=== PATIENT | female | born 1960 | race Caucasian/White ===

== ENCOUNTER → 2017-08-26 16:01 | Outpatient (CLI) | payer BC, SELFPAY ==
--- NOTE | 2017-08-26 16:04 | CT_ITS ---
CT Abdomen And Pelvis W/O Contrast INDICATION: Right flank pain x months. COMPARISON: None TECHNIQUE: Axial CT imaging of the abdomen and pelvis without contrast. Coronal and sagittal reformatted images. Radiation dose optimization technique applied. FINDINGS: Visualized lung bases are clear. The heart size is normal. The liver is normal in size and density. Gallbladder is not well seen, may be contracted or surgically absent. The spleen appears to be surgically absent. A residual splenule is seen. A punctate renal calculus, less than 1 mm is seen in the midpole region of the right kidney. There is no evidence of hydronephrosis. A punctate, less than 1 mm calcific density is seen in the inferior pole region of the left kidney, no evidence of hydronephrosis. The bowel loops are nondistended. The appendix is unremarkable. There is sigmoid diverticulosis without evidence of acute diverticulitis. There is no evidence of free air or free fluid. There is a 5.8 cm cyst with peripheral soft tissue material seen in the central pelvis, may represent the ovary with a large cyst. The urinary bladder is decompressed. The uterus and second ovary are not seen. CT/Abdomen/Pelvis without Cont IMPRESSION: 5.8 cm cystic structure in the pelvis with peripheral soft tissue density, may represent a large cyst arising from the ovary. Please correlate with pelvic ultrasound. Follow-up in 2-3 cycles is recommended to confirm stability or resolution. The uterus, second ovary, gallbladder, and spleen are not seen, may be surgically absent, please correlate with patient's surgical history. Sigmoid diverticulosis without evidence of acute diverticulitis. Normal appendix. Punctate nonobstructing bilateral renal calculi, no evidence of hydronephrosis. at 0059 Reported and signed by: Alejandra Urban MD Electronically Signed: Alejandra Urban MD at 23:57 EST Tel , Service support ,
== END ==
PROVIDERS: Family Provider Nurse Practitioner; PCP Nurse Practitioner; Visit Provider Nurse Practitioner
DX: R10.9 Unspecified abdominal pain (principal)
CPT/HCPCS: 74176

== ENCOUNTER 2017-09-17 09:44 | Day surgery (SDC) | payer BC, SELFPAY ==
--- NOTE | 2017-09-16 16:10 | EKG12_ITS ---
Test Reason : PRE OP Blood Pressure : / mmHG Vent. Rate : 073 BPM Atrial Rate : 073 BPM P-R Int : 144 ms QRS Dur : 084 ms QT Int : 400 ms P-R-T Axes : 046 065 055 degrees QTc Int : 440 ms Normal sinus rhythm Normal ECG Confirmed by RAOUL JOHNSON, NINA ([id number]), news editor MAYDA AGOSTO ([id number]) on 09/18/2017 1:36:25 PM Referred By: Tracey Barnhart Confirmed By:NINA SILVEIRA MD
[2017-09-16 17:11] LABS: Hemoglobin 13.6 g/dl (12.0-15.0); Mean Corp Hgb Conc 32.4 g/gl (32-36); Mean Corpuscular Hgb 29.8 pg (27.0-32.0); Mean Corpuscular Volume 92.1 fL (81-99); Mean Platelet Vol. 11.9 fl (6.2-12.0); Platelet Count 369 K/mm3 (150-450); RBC Distribution Width CV 13.2 % (11.6-14.6); RBC Distribution Width SD 43.8 fl (35.1-43.9); Red Blood Count 4.56 M/mm3 (4.2-5.4); White Blood Count 7.8 K/mm3 (4.4-11.0)
[2017-09-16 17:14] LABS: Scan Indicated on CBC? Y/N NO
[2017-09-16 17:39] LABS: Hemoglobin A1c 6.2 % (4.2-6.3)
[2017-09-16 18:23] LABS: Anion Gap 8 (5-15); BUN 16 mg/dL (7-18); BUN/Creat Ratio 21.2 RATIO (10-20); Calcium,Total 8.5 mg/dL (8.5-10.1); Chloride 104 mmol/L (98-107); Creatinine, Serum 0.75 mg/dL (0.55-1.02); EST Glomerular Filtration Rate 84 mL/min (>60); Est Glom Filt Rate - Afr Amer 102 mL/min (>60); Glucose 78 mg/dL (74-106); Potassium 4.2 mmol/L (3.5-5.1); Sodium Level 140 mmol/L (136-145); Thyroid Stim Hormone (TSH) 1.31 uIU/mL (0.358-3.74)
[2017-09-17] VITALS (7 sets, daily range): BP systolic 116–150; BP diastolic 70–98; PULSE 53–78; RESP 16–18; TEMP 36–36.4; O2SAT 93–100; BMI 31.3
[2017-09-17 12:10] LABS: Bedside Glucose 94 mg/dL (70-110)
--- NOTE | 2017-09-17 12:29 | PCM.DC.TUB ---
Discharge Diet: No Restrictions - Increase fluid intake for the next 48 hours. Discharge Activity: Return to Normal Activity, May Drive - when you are no longer taking pain/narcotic meds., May Shower, May Take a Tub Bath - in 7 days May resume sexual activity in: 1-2 weeks Additional Activity Instructions:: Ambulate often the next week after surgery. Nothing in the vagina for 5 days. Call your doctor if your incision/area has: Continuous Slow Oozing, Sudden Increased Bleeding, Increased Pain/ Swelling, Increased Redness, Foul Smelling Discharge Call your doctor if you observe: Fever of 101 or Higher Cleanse incision/area with: Soap & Water, - - Your incision has skin glue, it can get wet. Do not peel off the glue for 10-14 days. Allergies/Adverse Reactions: Allergies morphine Adverse Reaction (Verified 09/15/17 15:56) Other CAUSES LOW BP Medications to take at Discharge Ascorbic Acid [Vitamin C] 1,000 mg PO DAILY@0800 05/19/13 Atenolol [Tenormin (beta milan)] 25 mg PO LUNCH 05/19/13 Lisinopril [Zestril] 10 mg PO DAILY 05/19/13 Amoxicillin 500 mg PO TID 09/15/17 Levothyroxine [Synthroid] 137 mcg PO DAILY 09/15/17 Metformin HCl 500 mg PO DAILY 09/15/17 Hydrocodone/Acetaminophen [[place] 5-325 Tablet] 1 each PO Q6H PRN PRN 6 Days #20 tablet 09/17/17 Ibuprofen [Motrin] 600 mg PO Q6H PRN #30 tab 09/17/17 The following prescriptions were given: Hydrocodone/Acetaminophen [[place] 5-325 Tablet] 1 each PO Q6H PRN PRN 6 Days #20 tablet PRN Reason: Pain Ibuprofen [Motrin] 600 mg PO Q6H PRN #30 tab PRN Reason: Pain Primary Care Physician: Maddy Monterroso [Primary Care Provider] - Please Follow Up With: Tracey Barnhart MD - [phone] When: 1-2 weeks or as needed in my office
--- NOTE | 2017-09-17 13:10 | PCM.OPRPT ---
Report of Operation Date of Procedure: 09/17/17 Pre-Operative Diagnosis: LLQ pain, left adenexal mass Post-Operative Diagnosis: LLQ pain, extensive adhesions of sigmonid colon over bladder and left pelvic side wall, right ovary small and atrophic and adhered to posterior side wall Surgery/Procedure Performed:: Diagnostic laparascopy Description of Surgical Findings:: Extensive adhesions of sigmoid colon, normal atrophic right ovary and tube, left tube not able to be identified industrial design engineer: Angela Baumann Type of Anesthesia:: General Anesthesiologist: Judit Sahni Special Medications: none Specimen's removed: none Drains: none Estimated Blood Loss (mL): 10cc Fluids Replaced: 500 cc LR Description of Procedure: The patient was taken to the operating room where she was prepped and draped in the dorsolithotomy position. A weighted speculum was placed in the vagina and a sponge stick was placed in the vagina. The cervix is absent due to previous hysterectomy. Attention was turned to the abdomen. All port sites were infiltrated with 0.5% Marcaine before skin incisions were made. A 5 mm [intraumbilical] incision was made. The anterior abdominal wall was tented up with 2 towel clamps while a 5 mm blade less trocar and sleeve were inserted with vertical trocar under visualization. Intraperitoneal placement was confirmed with the laparoscope. The pneumoperitoneum was created and the underlying abdominal contents were intact. The patient was placed in Trendelenburg. Right and left lower quadrant ports were placed under direct visualization lateral to the inferior epigastric vessels. The bowel was swept away and the above findings were noted. Was noted that there were large amount of adhesions of the sigmoid colon clear up to the anterior abdominal wall completely obscuring the vaginal cuff, left ovary, and bladder. Obvious windows in this to initiate adhesion lysis. We consulted with the general surgeon intraoperatively who arrives and upon inspection of the pelvic contents, recommended that we did not initiate extensive adhesional lysis at this time, as it significant risk of possible bowel injury or resection. The peritoneum of the remaining abdominal contents was smooth. There is no ascites. The right ovary was very atrophic and completely adhered to the right pelvic sidewall and actually suspended from the sidewall. Small tubal remnant that appeared normal. Point decision was made to terminate the case. The lateral ports were removed under direct visualization and no active bleeding was noted. The pneumoperitoneum was released. The skin incisions were closed with Monocryl suture in a subcuticular fashion and skin glue and the student with me present.. The vaginal instruments were removed and the vaginal sweep was completed by me. The procedure was performed by me with assistance other than as dictated above. All sponge and needle counts were correct and the patient was taken to the recovery room in stable condition. Grafts/Implants Used: none - Complications none - Admit VTE Documentation VTE Present on Admission: No VTE Mechan Device Prophylaxis: SCD's VTE Pharm Prophylaxis ordered?: No Reason prophylaxis not ordered:: Procedure Not Indicated
[2017-09-17] MEDS: Bupivacaine Mpf 0.5% 30 ML VIAL (13:27)
[2017-09-17] MEDS: Lubricating Jelly 60 GM Tube 30 GM TOPICAL (14:11)
--- NOTE | 2017-09-17 14:54 | PCM.OPRPT ---
Report of Operation Date of Procedure: 09/17/17 Pre-Operative Diagnosis: complex right adexexal mass Post-Operative Diagnosis: Pelvic mass, adhesions of colon to anterior abdominal wall and vaginal cuff Surgery/Procedure Performed:: Diagnostic laparascopy, cystoscopy Description of Surgical Findings:: pelvic mass in midline over bladder and vaginal cufff, ovary not well defined but under adehsions. Adhesions of colon to anterior abdominal wall technology specialist: Angela Baumann technology specialist: Zaki MS3 Type of Anesthesia:: General Anesthesiologist: Judit Sahni Special Medications: none Specimen's removed: none Drains: none Estimated Blood Loss (mL): 10cc Fluids Replaced: 500 cc LR Description of Procedure: The patient was taken to the operating room where she was prepped and draped in the dorsolithotomy position. A sponge stick was placed in the vagina countertraction against the vaginal cuff. Attention was turned to the abdomen. All port sites were infiltrated with 0.5% Marcaine before skin incisions were made. A 5 mm intraumbilical incision was made. The anterior abdominal wall was tented up with 2 towel clamps while a 5 mm blade less trocar and sleeve were directly inserted. Intraperitoneal placement was confirmed with the laparoscope. The pneumoperitoneum was created and the underlying abdominal contents were intact. The patient was placed in Trendelenburg. Right lower quadrant port was placed under direct visualization lateral to the inferior epigastric vessels. The bowel was swept away. There was a large midline pelvic mass consistent preoperative measurements of 8 cm mass. It was very firm. There were some adhesions of the colon to the anterior abdominal wall into the bottom portion of the mass. Upon trying to sweep the bowel out from under the mass, there is a small amount of white tissue in some of the bowel adhesions that appeared to be the ovary. This appeared to be separate from the mass. The peritoneal surfaces were smooth. Bladder and vaginal cuff were unable to be visualized because of the location the pelvic mass. It was uncertain where the mass was arising from, decision was made to proceed with cystoscopy. The patient's urethra was very small and we had to use the pediatric cystoscope in order to enter the urethra. The bladder was distended with normal saline and the bladder was intact without masses or lesions. There is no obvious deformity of the bladder from the pelvic mass. At this point the decision was made to end the case and if the patient desires further intervention we will recommend consultation with [facility] oncology at a tertiary care center. The lateral ports were removed under direct visualization and no active bleeding was noted. The pneumoperitoneum was released. The skin incisions were closed with Monocryl suture in a subcuticular fashion and skin glue. The vaginal instruments were removed and the vaginal sweep was completed by me. The procedure was performed by me with assistance. All sponge and needle counts were correct and the patient was taken to the recovery room in stable condition. Grafts/Implants Used: none - Complications none - Admit VTE Documentation VTE Present on Admission: No VTE Mechan Device Prophylaxis: SCD's VTE Pharm Prophylaxis ordered?: No Reason prophylaxis not ordered:: Procedure Not Indicated
--- NOTE | 2017-09-17 15:03 | OP.PCM_ITS ---
Report of Operation Date of Procedure: 09/17/17 Pre-Operative Diagnosis: complex right adexexal mass Post-Operative Diagnosis: Pelvic mass, adhesions of colon to anterior abdominal wall and vaginal cuff Surgery/Procedure Performed:: Diagnostic laparascopy, cystoscopy Description of Surgical Findings:: pelvic mass in midline over bladder and vaginal cufff, ovary not well defined but under adehsions. Adhesions of colon to anterior abdominal wall business support manager: Angela Baumann business support manager: Zaki MS3 Type of Anesthesia:: General Anesthesiologist: Judit Sahni Special Medications: none Specimen's removed: none Drains: none Estimated Blood Loss (mL): 10cc Fluids Replaced: 500 cc LR Description of Procedure: The patient was taken to the operating room where she was prepped and draped in the dorsolithotomy position. A sponge stick was placed in the vagina countertraction against the vaginal cuff. Attention was turned to the abdomen. All port sites were infiltrated with 0.5% Marcaine before skin incisions were made. A 5 mm intraumbilical incision was made. The anterior abdominal wall was tented up with 2 towel clamps while a 5 mm blade less trocar and sleeve were directly inserted. Intraperitoneal placement was confirmed with the laparoscope. The pneumoperitoneum was created and the underlying abdominal contents were intact. The patient was placed in Trendelenburg. Right lower quadrant port was placed under direct visualization lateral to the inferior epigastric vessels. The bowel was swept away. There was a large midline pelvic mass consistent preoperative measurements of 8 cm mass. It was very firm. There were some adhesions of the colon to the anterior abdominal wall into the bottom portion of the mass. Upon trying to sweep the bowel out from under the mass, there is a small amount of white tissue in some of the bowel adhesions that appeared to be the ovary. This appeared to be separate from the mass. The peritoneal surfaces were smooth. Bladder and vaginal cuff were unable to be visualized because of the location the pelvic mass. It was uncertain where the mass was arising from, decision was made to proceed with cystoscopy. The patient's urethra was very small and we had to use the pediatric cystoscope in order to enter the urethra. The bladder was distended with normal saline and the bladder was intact without masses or lesions. There is no obvious deformity of the bladder from the pelvic mass. At this point the decision was made to end the case and if the patient desires further intervention we will recommend consultation with [facility] oncology at a tertiary care center. The lateral ports were removed under direct visualization and no active bleeding was noted. The pneumoperitoneum was released. The skin incisions were closed with Monocryl suture in a subcuticular fashion and skin glue. The vaginal instruments were removed and the vaginal sweep was completed by me. The procedure was performed by me with assistance. All sponge and needle counts were correct and the patient was taken to the recovery room in stable condition. Grafts/Implants Used: none - Complications none - Admit VTE Documentation VTE Present on Admission: No VTE Mechan Device Prophylaxis: SCD's VTE Pharm Prophylaxis ordered?: No Reason prophylaxis not ordered:: Procedure Not Indicated
[2017-09-17 15:45] LABS: Bedside Glucose 98 mg/dL (70-110)
== END 2017-09-17 17:37 | disposition home or self-care (01) ==
LOC: SDC 09:46 → AC 09:50
PROVIDERS: Family Provider Nurse Practitioner; PCP Nurse Practitioner; Visit Provider Obstetrics & Gynecology
PROC: (CPT 58720; principal; 2017-09-17 11:25)
DX: R19.09 Other intra-abdominal and pelvic swelling, mass and lump (principal); Z85.850 Personal history of malignant neoplasm of thyroid; E11.9 Type 2 diabetes mellitus without complications; F41.9 Anxiety disorder, unspecified; K21.9 Gastro-esophageal reflux disease without esophagitis; Z79.899 Other long term (current) drug therapy; Z79.84 Long term (current) use of oral hypoglycemic drugs; I10 Essential (primary) hypertension; Z87.891 Personal history of nicotine dependence; J45.909 Unspecified asthma, uncomplicated; E55.9 Vitamin D deficiency, unspecified; D50.9 Iron deficiency anemia, unspecified; K66.0 Peritoneal adhesions (postprocedural) (postinfection); Z90.710 Acquired absence of both cervix and uterus
CPT/HCPCS: 00840; 49320; 36415; 80048; 82962; 83036; 84443; 85027; 86850; 86900; 93005; J7120; J2405

== ENCOUNTER → 2018-06-11 17:15 | Outpatient (CLI) | payer BC, SELFPAY ==
--- NOTE | 2018-06-11 17:50 | MRI_ITS ---
STUDY: MRI LUMBAR SPINE WITHOUT CONTRAST REASON FOR EXAM: Female, 57 years old. Low back pain, left leg and bilateral feet for many years. Sciatica. TECHNIQUE: Standardized fat and water weighted pulse sequences were obtained in the sagittal and axial planes. COMPARISON: CT of the abdomen and pelvis 08/26/2017. FINDINGS: T10-T11: (Sagittal only). Normal endplates. Normal disc height, hydration and morphology. No ventral extra dural defect. Normal central canal and bilateral intervertebral neural foramina. T11-T12: (Sagittal only). Normal endplates. Normal disc height, hydration and morphology. No ventral extradural defect. Normal central canal and bilateral intervertebral neural foramina. T12-L1: (Sagittal only). Normal endplates. Normal disc height, hydration and morphology. No ventrolateral defect. Normal central canal and bilateral intervertebral neural foramina. Normal lumbar lordosis. There is no substantial scoliosis. Normal conus medullaris that terminates at the T12-L1 disc level. L1-2: Normal endplates. Minimal disc space height narrowing. Small posterior bulging disc. Normal central canal and bilateral lateral recesses. Normal facet joints. Normal bilateral intervertebral neural foramina. L2-3: Normal endplates. Normal disc height, hydration and morphology. Normal bilateral facet joints. Normal central canal and bilateral lateral recesses. Normal bilateral intervertebral neural foramina. L3-4: Normal endplates. Mild disc space height narrowing. Minimal degenerative anterolisthesis of L3 on L4 with small posterior bulging disc. Normal central canal and bilateral lateral recesses. Mild degenerative facet arthropathy. Normal bilateral intervertebral neural foramina. L4-5: Normal endplates. Normal disc height and morphology. Normal central canal and bilateral lateral recesses. Mild right degenerative facet arthropathy. Normal left facet joint. Normal bilateral intervertebral neural foramina. L5-S1: Normal endplates. Mild disc space height narrowing. Normal ventral extra dural defect. Normal central canal and bilateral lateral recesses. Mild asymmetric degenerative facet arthropathy. Normal bilateral intervertebral neural foramina. Normal visualized sacral ala. Normal visualized paraspinous soft tissue structures. MRI/Spine Lumbar (Routine) IMPRESSION: 1. No MRI evidence of lumbar extruded disc fragment, spinal stenosis or nerve root displacement. 2. Minimal degenerative anterolisthesis of L3 on L4 with small posterior bulging disc. This is a new finding when compared to 08/26/2017 CT of the abdomen and pelvis. 3. Mild right L4-L5 degenerative facet arthropathy. 4. Mild asymmetric L5-S1 degenerative facet arthropathy. Electronically Signed: Parth Mercado MD at 11:29 EST , Service support ,
== END ==
PROVIDERS: Family Provider Nurse Practitioner; PCP Nurse Practitioner; Referring Provider Nurse Practitioner; Visit Provider Nurse Practitioner
DX: M54.30 Sciatica, unspecified side (principal)
CPT/HCPCS: 72148

== ENCOUNTER → 2018-06-22 17:06 | Outpatient (CLI) | payer BC, SELFPAY ==
[2017-09-17 10:10] VITALS: BMI 31.3
--- NOTE | 2018-06-22 17:30 | MRI_ITS ---
STUDY: MRI RIGHT MIDFOOT REASON FOR EXAM: Female, 57 years old. Pain. Osteoarthritis. TECHNIQUE: Standardized fat and water weighted pulse sequences were obtained in all 3 orthogonal planes. COMPARISON: None. FINDINGS: Normal talonavicular articulation. Normal calcaneocuboid articulation. There is mild degenerative arthrosis of the navicular-cuneiform articulation. There is mild degenerative arthrosis of the intercuneiform articulation. Normal first tarsometatarsal articulation. Normal Lisfranc ligament. Normal second and third tarsometatarsal articulations. Normal cuboid fourth and cuboid fifth tarsometatarsal articulation. There is marrow edema of the proximal shaft of the third and fourth metatarsals, series 5 images and 15/. Arthritic change at the first MTP joint with effusion. Normal tibialis anterior tendon. Normal extensor hallucis longus tendon. Normal extensor digitorum longus tendons. Normal peroneus longus tendon and distal insertion. Normal peroneus brevis tendon and distal insertion. Normal intrinsic muscles of the mid and forefoot region. Normal extensor digitorum brevis muscle. Normal subcutis adipose space. MRI/Lower Ext/No Jt/w/o IMPRESSION: Arthritic change of the midfoot. Edema with stress injury or bone bruising of the third and fourth metatarsals. Electronically Signed: Percy Alfaro MD at 20:11 EST , Service support ,
--- NOTE | 2018-06-22 18:15 | MRI_ITS ---
STUDY: MRI LEFT MIDFOOT REASON FOR EXAM: Female, 57 years old. Pain. Osteoarthritis. TECHNIQUE: Standardized fat and water weighted pulse sequences were obtained in all 3 orthogonal planes. COMPARISON: None. FINDINGS: Normal talonavicular articulation. Normal calcaneocuboid articulation. There is mild degenerative arthrosis of the navicular-cuneiform articulation. There is mild degenerative arthrosis of the intercuneiform articulation. Normal first tarsometatarsal articulation. Normal Lisfranc ligament. There is mild degenerative arthrosis of the second and third tarsometatarsal articulations. There is mild degenerative arthrosis of the cuboid fourth and cuboid fifth tarsometatarsal articulations. There is marrow edema of the cuneiform bones. There is marrow edema at the base of the third metatarsal, series 5 image 15/24. There is marrow edema of the proximal fourth metatarsal. There is arthritic change at the first MTP joint Normal tibialis anterior tendon. Normal extensor hallucis longus tendon. Normal extensor digitorum longus tendons. Normal peroneus longus tendon and distal insertion. Normal peroneus brevis tendon and distal insertion. Normal intrinsic muscles of the mid and forefoot region. Normal extensor digitorum brevis muscle. Normal subcutis adipose space. MRI/Lower Ext/No Jt/w/o IMPRESSION: Arthritic change of the midfoot. Marrow edema with stress injury or bone bruising of the third and fourth metatarsals and cuneiform bones. Electronically Signed: Percy Alfaro MD at 23:03 EST , Service support ,
--- OUTSIDE RECORDS SUMMARY | 2018-09-24 05:38 | XMS RPT_ITS | Continuity of Care Document ---
:1960 Author Organization [facility] Address [address] [facility] [address] [place] [address] Phone Care Team Providers Name Role Phone Kriss CRISMaddy Unavailable Dr. Cortez Anna Unavailable Wild JOHNSON, Talita Bonilla Unavailable Miah JOHNSON, Romaine Baldwin Unavailable Dr. Baljit Miner Unavailable Dr. Bob Camara Unavailable Grace Nolasco LPN Unavailable Unavailable Zandra Kruger Unavailable Unavailable Jany Moreau Unavailable Unavailable Unavailable Unavailable Problems Name Dates Details Abdominal pain (R10.9, 789.00) Comments: Rt lower CT reviewed 6cm adnexal cyst Status: Active Abnormal mammogram (R92.8, 793.80) Status: Active Adnexal cyst (N94.9, 625.8) Comments: CT done [facility] 6cm Adnexal cyst seeing Tezano Status: Active Adverse food reaction (T78.1XXA, 995.7) Comments: to shrimp or to MSG? wants allergy testing Status: Active Asplenia (Q89.01, 759.0) Status: Active Backache (M54.9, 724.5) Status: Active BMI 30.0-30.9,adult (Z68.30, V85.30) Status: Active BMI 30.0-30.9,adult (Z68.30, V85.30) Status: Active BMI 30.0-30.9,adult (Z68.30, V85.30) Status: Active Body aches (R52, 780.96) Status: Active Cold virus (J00, 460) Status: Active Constipation (K59.00, 564.00) Status: Active DEFICIENCY, VITAMIN D NOS (E55.9, 268.9) Status: Active Deliveries (Parity) Comments: 2 Status: Active Depression (F32.9, 311) Comments: stable Status: Active Diabetes mellitus, controlled (E11.9, 250.00) Comments: 6.2 repeating in [address] José Luis Owens for thyroid only Status: Active Dysuria (R30.0, 788.1) Status: Active Encounter for pre-employment examination (Z02.1, V70.5) Status: Active Encounter for screening mammogram for breast cancer (Renamed from Encounter for screening mammogram for malignant neoplasm of breast) (Z12.31, V76.12) Status: Active Fatigue (R53.83, 780.7) Status: Active Fatigue (R53.83, 780.79) Comments: multifactorial, recent surgery of thyroid, cough strep, etc Status: Active Fatty liver (K76.0, 571.8) Status: Active Former smoker (Z87.891, V15.82) Status: Active GERD (gastroesophageal reflux disease) (K21.9, 530.81) Status: Active Headache (R51, 784.0) Status: Active Hematuria (R31.9, 599.70) Status: Active History of arthroscopy of right shoulder (Z98.890, V45.89) Comments: Dr. Hernández 07-02-16 Status: Active Hot flashes (N95.1, 627.2) Status: Active Hypercholesteremia (E78.00, 272.0) Comments: total 225, now 237 trig 184 now 136 , Hdl 47 now 57 LDL 141 now 153 , worsening from has been at home eating too much Status: Active Hypertension (I10, 401.9) Comments: well controlled on atenolol and lisinopril Status: Active Hysterectomy; Abdominal Comments: partail hyster- thinks one ovary left 2006 Status: Active Kidney stone on right side (N20.0, 592.0) Comments: with mild hydro Status: Active Leukocytosis (D72.829, 288.60) Comments: 12.4 on 06-03 with out speen Status: Active Low back pain (M54.5, 724.2) Status: Active Low HDL (under 40) (E78.6, 272.5) Status: Active Microalbuminuria (R80.9, 791.0) Status: Active Muscle spasm (M62.838, 728.85) Status: Active Nonsmoker (Z78.9, V49.89) Status: Active Obesity (E66.9, 278.00) Status: Active Other specified abnormal findings of blood chemistry (R79.89, 790.6) Status: Active Other specified viral infection, in conditions classified elsewhere and of unspecified site (B97.89, 079.89) Status: Active Ovarian cyst (N83.209, 620.2) Comments: Rt moderate large seeing Tizano Status: Active Pain in Thoracic Spine (724.1) (Renamed from Pain in thoracic spine) (M54.6, 724.1) Status: Active Pain in unspecified hip (M25.559, 719.45) Status: Active Papillary carcinoma of thyroid (C73, 193) Comments: removed by Dr. Kelton Owens [facility] on on thyriod hormone replacemnt Status: Active Pelvic mass (R19.00, 789.30) Comments: to have surgery November 12, had to recover from previous surgery but mass not removed Status: Active Pharyngitis, acute (J02.9, 462) Status: Active Postmenopausal (Renamed from Postmenopausal status) (Z78.0, V49.81) Status: Active Pregnancies () Comments: 2 Status: Active Right flank pain (R10.9, 789.09) Comments: ? stone hadn one 08-04-2016 with mild hydro will CT Status: Active Rosacea (L71.9, 695.3) Status: Active Sciatica (M54.30, 724.3) Status: Active Screening for breast cancer (Renamed from Breast cancer screening) (Z12.39, V76.10) Status: Active Thyroid nodule (E04.1, 241.0) Comments: has seen katerina and had thyroid biopsy in past , now thyroid ademoma [id number], will get Thyroid ultrasound by Dr. Webster thyroid enlarged Status: Active Unspecified Diagnosis Status: Active Unspecified Diagnosis Status: Active Unspecified Diagnosis Status: Active Urinary frequency (R35.0, 788.41) Comments: ua neg will await cx -- in meantimie pt will stop all caffeine and artifical sweetners if cx neg and stoppign above dont help think about IC Status: Active Urinary tract infection, site not specified (N39.0, 599.0) Status: Active Well woman exam (Z01.419, V72.31) Status: Active Medications Name Dates Details Atenolol 25 MG Oral Tablet 1 (one) Tablet qd for 90 days Quantity: 90 {Tablet} Refills: 3 Ordered:12-Nov-2017 Kriss CRIS, Maddy Muniz OFFICE CLERK, Maddy Orozco Start : 12-Nov-2017 Active SHAY CONTOUR TEST (In Vitro Strip) 1 (one) Strip Strip two times daily for 0 days Quantity: 1 {Bottle} Refills: 3 Ordered:18-Jun-2015 Kriss OFFICE CLERK, Maddy Muniz CNP, Maddy Orozco Start : 18-Jun-2015 Active Comments:Dx: 250.0 Shay Microlet Lancets Miscellaneous 1 (one) Misc Misc bid as directed for 0 days Quantity: 1 {Box} Refills: 6 Ordered:28-Jan-2016 Kriss CRIS, Maddy Muniz CNP, Maddy Orozco Start : 28-Jan-2016 Active Comments:DX: 790.22 Lancets Ultra Fine Miscellaneous 1 (one) Misc bid for 0 days Quantity: 60 {QS} Refills: 0 Ordered:05-Sep-2016 Kriss CRIS, Maddy Muniz CNP, Keyana Start : 05-Sep-2016 Active LEVOTHYROXINE SODIUM, 137MCG (Oral Tablet) 1 (one) Tablet daily for 0 days Quantity: 90 {Tablet} Refills: 3 Ordered:31-Jul-2015 Sandra Oseguera MD Start : 31-Jul-2015 Active Lisinopril 10 MG Oral Tablet 1 (one) Tablet daily for 0 days Quantity: 90 {Tablet} Refills: 2 Ordered:19-Oct-2017 AmparoMaddy heath CNP, CNP, Mary E Start : 19-Oct-2017 Active MetFORMIN HCl ER 500 MG Oral Tablet Extended Release 24 Hour 1 (one) Tablet ER 24HR Tablet ER 24HR at lunch for 0 days Quantity: 90 {Tablet} Refills: 3 Ordered:03-Dec-2017 Maddy Monterroso CNP, CNP, Mary E Start : 03-Dec-2017 Active OneTouch Ultra Blue In Vitro Strip 1 (one) Strip bid for 0 days Quantity: 60 {Strip} Refills: 0 Ordered:05-Sep-2016 Kriss LYNCH, Maddy Castellanos CNP Start : 05-Sep-2016 Active VITAMIN C, 500MG (Oral Capsule) 1 Capsule daily for 0 days Quantity: 30 {Capsule} Refills: 0 Ordered:31-May-2013 Bibi Jain LPN Start : 14-Mar-2013 Active AUGMENTIN, 875-125MG (Oral Tablet) 1 Tablet bid for 14 days Quantity: 28 {Tablet} Refills: 0 Ordered:14-Jun-2013 Bibi Jain LPN Start : 14-Jun-2013 End : 28-Jun-2013 Inactive Bactrim 400-80 MG Oral Tablet 1 (one) Tablet bid for 7 days Quantity: 14 {Tablet} Refills: 0 Ordered:03-Jun-2016 Maddy Monterroso CNP, CNP, Mary E Start : 03-Jun-2016 End : 10-Jun-2016 Inactive Calcium Citrate-Vitamin D 315-200 MG-UNIT Oral Tablet 1 Tablet daily for 0 days Quantity: 30 {Tablet} Refills: 0 Ordered:20-Jul-2017 Grace Nolasco LPN Start : 04-Jul-2015 End : 20-Jul-2017 Inactive CELEBREX, 200MG (Oral Capsule) 1 Capsule daily for 0 days Quantity: 30 {Capsule} Refills: 0 Ordered:17-Jan-2011 Bibi Jain LPN Start : 06-Dec-2010 End : 17-Jan-2011 Inactive CELEXA, 20MG (Oral Tablet) 1 (one) Tablet qd for 90 days Quantity: 90 {Tablet} Refills: 0 Ordered:14-Mar-2013 Bibi Jain LPN Start : 16-Feb-2013 End : 17-May-2013 Inactive Comments:Pt aware needs apt before more refills Cipro 500 MG Oral Tablet 1 Tablet bid for 7 days Quantity: 14 {Tablet} Refills: 0 Ordered:23-Jun-2016 Kriss LYNCH, Maddy Muniz CNP, Maddy Orozco Start : 23-Jun-2016 End : 30-Jun-2016 Inactive CITALOPRAM HYDROBROMIDE, 20MG (Oral Tablet) 1 Tablet daily for 0 days Quantity: 90 {Tablet} Refills: 1 Ordered:31-May-2013 Kriss LYNCH, Maddy Muniz CNP, Maddy Orozco Start : 31-May-2013 End : 31-May-2013 Inactive DOCUSATE SODIUM, 100MG (Oral Capsule) 1 (one) Capsule bid for 30 days Quantity: 30 {Capsule} Refills: 0 Ordered:05-Nov-2015 Kriss LYNCH, Maddy Muniz CNP, Maddy Orozco Start : 05-Nov-2015 End : 05-Dec-2015 Inactive DOXYCYCLINE HYCLATE, 100MG (Oral Tablet) 1 (one) Tablet Twice daily for 0 days Quantity: 60 {Tablet} Refills: 0 Ordered:06-Sep-2010 Bibi Jain LPN Start : 23-Apr-2009 End : 06-Sep-2010 Inactive DRISDOL, 91930QSNY (Oral Capsule) 1 Capsule twice weekly for 0 days Quantity: 24 {Capsule} Refills: 0 Ordered:17-Jan-2011 Bibi Jain LPN Start : 20-Sep-2010 End : 17-Jan-2011 Inactive FLEXERIL, 10MG (Oral Tablet) 1 Tablet tid prn for 0 days Quantity: 20 {Tablet} Refills: 0 Ordered:06-Sep-2010 Bibi Jain LPN Start : 09-Aug-2010 End : 06-Sep-2010 Inactive Comments:twenty -- do not drive only take qhs if drowsy side effect exists for you Garlic Inactive JANUMET XR, 50/500 (Oral Tablet) (Free Text) 1 (one) Tablet Tablet with pm meal for 0 days Quantity: 74 {Tablet} Refills: 0 Ordered:25-Jan-2018 Grace Nolasco LPN Start : 15-Dec-2016 End : 25-Jan-2018 Inactive LANSOPRAZOLE, 30MG (Oral Capsule Delayed Release) 1 (one) Capsule DR daily for 0 days Quantity: 30 {Capsule} Refills: 3 Ordered:28-Apr-2014 Zabrina Arciniega LPN Start : 17-Apr-2014 End : 28-Apr-2014 Inactive NABUMETONE, 750MG (Oral Tablet) 1 tab Tablet bid for 10 days Quantity: 20 {Tablet} Refills: 0 Ordered:09-Aug-2010 Leyla Birch DO Start : 09-Aug-2010 End : 19-Aug-2010 Inactive NAPROXEN SODIUM, 550MG (Oral Tablet) 1 Tablet bid for 0 days Refills: 0 Ordered:06-Sep-2010 Bibi Jain LPN Start : 23-Apr-2009 End : 06-Sep-2010 Inactive OneTouch Ultra 2 w/Device Kit 1 (one) Kit test bid for 90 days Quantity: 1 Kit Refills: 0 Ordered:05-Sep-2016 Kriss LYNCH Maddy Cristy LYNCH Maddy Orozco Start : 05-Sep-2016 End : 04-Dec-2016 Inactive PREDNISONE, 10MG (Oral Tablet) 1 (one) Tablet bid x 3 days, then 1daily x 3 days, then 1/2 x 3days for 0 days Quantity: 11 {Tablet} Refills: 0 Ordered:12-Sep-2013 Bibi Jain LPN Start : 24-Jun-2013 End : 12-Sep-2013 Inactive Comments:take with food PREVACID, 30MG (Oral Capsule Delayed Release) [address] QD for 30 days Quantity: 30 {Capsule_DR} Refills: 0 Ordered:02-Jul-2012 Amparoivana CRIS Maddy Muniz CRIS Maddy Orozco Start : 02-Jul-2012 End : 01-Aug-2012 Inactive Comments:Pt needs apt before more refills PRILOSEC OTC, 20MG (Oral Tablet Delayed Release) 1 (one) Tablet DR daily for 30 days Refills: 0 Ordered:31-Jul-2015 Kriss RCIS, Maddy Muniz CRIS Maddy Orozco Start : 27-Jun-2015 End : 27-Jul-2015 Inactive ROXICET, 5-325MG/5ML (Oral Solution) 1-2 tabs q 4hr prn for 0 days Refills: 0 Ordered:17-Feb-2007 Lucero Kent End : 17-Feb-2007 Inactive VICODIN, 5-500MG (Oral Tablet) 1 Tablet q4-6hr prn for 0 days Quantity: 60 {Tablet} Refills: 0 Ordered:06-Sep-2010 Bibi Jain LPN Start : 23-Apr-2009 End : 06-Sep-2010 Inactive Vitamin D 2000 UNIT Oral Capsule 1 (one) Capsule Capsule daily for 0 days Quantity: 30 {Capsule} Refills: 0 Ordered:20-Jul-2017 Grace Nolasco LPN Start : 15-Dec-2016 End : 20-Jul-2017 Inactive Vitamin D3 2000 UNIT Oral Capsule 1 (one) Capsule daily for 0 days Quantity: 30 {Capsule} Refills: 0 Ordered:19-May-2016 Kriss OFFICE CLERK, Maddy Muniz OFFICE CLERK, Keyana Start : 11-Feb-2016 End : 19-May-2016 Inactive ATORVASTATIN CALCIUM, 40MG (Oral Tablet) 1 (one) Tablet daily for 0 days Quantity: 90 {Tablet} Refills: 3 Ordered:23-Apr-2015 Grace Nolasco LPN Start : 22-Jan-2015 End : 23-Apr-2015 Discontinued Bromfed DM 30-2-10 MG/5ML Oral Syrup 10 Milliliter q4hr prn for 0 days Quantity: 120 {Milliliter} Refills: 0 Ordered:08-Aug-2016 Grace Nolasco LPN Start : 03-Jun-2016 End : 08-Aug-2016 Discontinued Culturee Digestive Health Oral Capsule 1 (one) Capsule Capsule daily for 0 days Quantity: 30 {Capsule} Refills: 0 Ordered:11-Feb-2016 Grace Nolasco LPN Start : 11-Jun-2015 End : 11-Feb-2016 Discontinued DIAZEPAM, 5MG (Oral Tablet) 1 Tablet q8hrs prn for 30 days Quantity: 30 {Tablet} Refills: 0 Ordered:21-Dec-2009 Ramonita East DO Start : 21-Dec-2009 End : 21-Dec-2009 Discontinued DOCUSATE SODIUM, 100MG (Oral Capsule) 1 cap bid, prn for 0 days Refills: 0 Ordered:09-Aug-2007 Tashia Casiano End : 09-Aug-2007 Discontinued ERGOCALCIFEROL, [id number] (Oral Capsule) 1 (one) Capsule Capsule twice weekly for 0 days Quantity: 24 {Capsule} Refills: 0 Ordered:22-Jan-2015 Grace Nolasco LPN Start : 23-Jan-2014 End : 22-Jan-2015 Discontinued FERROUS SULFATE EC, 325MG (PO EC Tab) 1 tab bid for 0 days Refills: 0 Ordered:19-Apr-2007 KlyeSheridan littlefer Start : 19-Apr-2007 End : 19-Apr-2007 Discontinued Comments:This order discontinued per [facility]. Gabapentin 300 MG Oral Capsule 1 (one) Capsule as needed for 30 days Refills: 0 Ordered:08-Aug-2016 Grace Nolasco LPN Start : 11-Feb-2016 End : 08-Aug-2016 Discontinued Comments:Medication taken as needed. LEXAPRO, 10MG (Oral Tablet) 1 QD for 0 days Refills: 0 Ordered:26-Jan-2007 Bibi Jain LPN End : 21-Oct-2006 Discontinued Meloxicam 15 MG Oral Tablet 1 (one) Tablet daily for 30 days Quantity: 30 {Tablet} Refills: 0 Ordered:11-Feb-2016 Grace Nolasco LPN Start : 05-Nov-2015 End : 11-Feb-2016 Discontinued OMEPRAZOLE, 40MG (Oral Capsule Delayed Release) 1 (one) Capsule DR Capsule DR qd and take before meal for 0 days Quantity: 30 {Capsule} Refills: 3 Ordered:22-Jan-2015 Grace Nolasco LPN Start : 28-Apr-2014 End : 22-Jan-2015 Discontinued PROAIR HFA, 108 (90 Base)MCG/ACT (Inhalation Aerosol Solution) 2 (two) Puff(s) tid for 0 days Quantity: 1 {Aerosol_Soln} Refills: 0 Ordered:22-Jan-2015 Grace Nolasco LPN Start : 14-Jun-2013 End : 22-Jan-2015 Discontinued TERAZOL 7, 0.4% (Vaginal Cream) 1 Cream QHS / HS for 0 days Quantity: 7 {Cream} Refills: 0 Ordered:24-Dec-2006 Bibi Jain LPN Start : 24-Dec-2006 End : 11-Jan-2007 Discontinued TYLENOL, 500MG (PO Cap) As needed for 0 days Refills: 0 Ordered:17-Jan-2011 Bibi Jain LPN End : 17-Jan-2011 Discontinued Comments:Medication taken as needed. This order discontinued per [facility]. URISPAS, 100MG (Oral Tablet) 1 (one) Tablet tid for 0 days Quantity: 9 {Tablet} Refills: 0 Ordered:27-Nov-2006 Bibi Jain LPN Start : 27-Nov-2006 End : 11-Jan-2007 Discontinued Allergies and Adverse Reactions Name Dates Details No Known Drug Allergies (Allergy) Status: Active Past Medical History Name Dates Details Abdominal pain, acute, right upper quadrant (R10.11, 789.01) Comments: think musculo skeletal Status: Inactive as of 06-Aug-2015 Abnormal glucose tolerance test (R73.02, 790.22) Comments: Hga1 c increasing as well as Fasting BS Status: Inactive as of 03-Jun-2016 abnormal menstrual bleeding Status: Inactive as of 20-Dec-2008 Bleeding gums (523.8) Comments: make dental apt Status: Inactive as of 03-Jun-2016 BMI 27.0-27.9,adult (Z68.27, V85.23) Status: Inactive as of 14-Apr-2017 BMI 28.0-28.9,adult (Z68.28, V85.24) Comments: 28.89 - 12/15/16 Status: Inactive as of 14-Apr-2017 BMI 29.0-29.9,adult (Z68.29, V85.25) Status: Inactive as of 14-Apr-2017 Chronic blood loss anemia (D50.0, 280.0) Status: Resolved as of 09-Apr-2009 Cough (R05, 786.2) Comments: remains on augmentin use inhaler Status: Inactive as of 03-Jun-2016 Cutaneous skin tags (L91.8, 701.9) Status: Inactive as of 03-Jun-2016 dysuria Status: Inactive as of 20-Dec-2008 Elevated LFTs (R94.5, 790.6) Status: Inactive as of 03-Jun-2016 Flank pain (R10.9, 789.09) Comments: rt. flank Status: Inactive as of 03-Jun-2016 Flank pain (R10.9, 789.09) Status: Inactive as of 14-Apr-2017 Foot pain, bilateral (M79.671, 729.5) Comments: on top related to work boots, to get new Status: Inactive as of 03-Jun-2016 Hepatomegaly (789.1) Status: Inactive as of 14-Apr-2017 Hypopotassemia (E87.6, 276.8) Status: Inactive as of 16-Jul-2009 Impaired fasting glucose (R73.01, 790.21) Status: Inactive as of 03-Jun-2016 Keratosis, actinic (L57.0, 702.0) Status: Inactive as of 03-Jun-2016 Knee pain (M25.569, 719.46) Status: Inactive as of 03-Jun-2016 Low back pain potentially associated with radiculopathy (M54.5, 724.2) Status: Inactive as of 03-Jun-2016 Pain in unspecified joint (M25.50, 719.40) Status: Inactive as of 14-Apr-2017 postmenopausal without estrogen Status: Inactive as of 14-Apr-2017 Preop examination (Z01.818, V72.84) Status: Inactive as of 14-Apr-2017 proteinuria Comments: start freddy inhibitor and control bp better Status: Inactive as of 20-Dec-2008 Right lower quadrant abdominal pain of unknown etiology (R10.31, 789.03) Comments: awaiting result pelvic uS had hysterectomy with left opherectomy, per Dr. Montoya 2006 Status: Inactive as of 03-Jun-2016 screen Status: Inactive as of 15-Oct-2009 Shoulder pain, right (M25.511, 719.41) Comments: seeing Edgar for rt shoulder pain on gabapentin when needed Status: Inactive as of 08-Aug-2016 Splenomegaly (R16.1, 789.2) Comments: removedFound in Jun, has seen Masci, with no obvious cause of spleenomegaly, [facility] work Status: Resolved as of 12-Sep-2013 Strep pharyngitis (034.0) Status: Inactive as of 14-Apr-2017 Thumb pain (M79.646, 729.5) Status: Inactive as of 03-Jun-2016 Thyroid mass (246.9) Comments: enlarging, 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 [facility] from [facility] thyroid adenoma Status: Inactive as of 03-Jun-2016 Uncontrolled diabetes mellitus type 2 without complications (E11.65, 250.02) Comments: A1C 5.7 BS 76 Status: Inactive as of 14-Apr-2017 Urinary frequency (R35.0, 788.41) Status: Inactive as of 20-Dec-2008 Urinary frequency (R35.0, 788.41) Status: Inactive as of 14-Apr-2017 uterine mass with abnormal menstrual bleeding and anemia of 9.8 Status: Inactive as of 26-Dec-2008 Vaginal discharge (N89.8, 623.5) Comments: resolved Status: Inactive as of 20-Dec-2008 VIRAL WARTS, NOS (078.19) Comments: flat - faceretina rec -- will meet eric Status: Resolved as of 25-Feb-2010 Procedures Procedure Dates Details Bone Spur Completed Comments: Erlin Hernández 2015 Rt Shoulder Thyroidectomy; Subtotal Completed Comments: 05/18 Date Value Details 18-Sep-2017 12 Lead Electrocardiogram Result: Comments: See Note; NOTES: [facility] Cardiovascular Services [address] [place] [address] 12 Lead EKG 09/16/17 1620 MR#: [id number] Acct: [id number] Name: DAYANARA MURRAY Rep #: [id number] : 1960 56 From: Rod Bender MD Attending Dr: Tracey Barnhart MD Status: [facility] Ordering Dr: Tracey Barnhart MD Date: 09/16/17 Location: [facility] Sex: F C Admitted: Test Reason : PRE OP Blood Pressure : / mmHG Vent. Rate : 073 BPM Atrial Rate : 073 BPM P- R Int : 144 ms QRS Dur : 084 ms QT Int : 400 ms P-R-T Axes : 046 065 055 degrees QTc Int : 440 ms Normal sinus rhythm Norm al ECG Confirmed by ROD BENDER MD ([id number]), web editor ALEJANDRA AGOSTO ([id number]) on 09/18/2017 1:36:25 PM Referred By: Tracey Barnhart Confirmed By:ROD BENDER MD 09/18/17 1336 Date Rod Bender MD CC: Maddy Monterroso ARCHITECTURAL REPRESENTATIVE; Tracey Barnhart MD Signed 17-Sep-2017 Operative Report Result: Comments: See Note; NOTES: [facility] Medical Records Department [address] [place] [address] Operative Report 09/17/17 1454 MR#: [id number] Acct: [id number] Name: DAYANARA MURRAY Rep #: [id number] : 1960 56 From: Tracey Barnhart MD PCP: Maddy Monterroso NP Status: REG [facility] Y Location: [place] [address] Report of Operation Date of Procedure: 09/17/17 Pre-Operative Diagnosis: compl ex right adexexal mass Post-Operative Diagnosis: Pelvic mass, adhesions of colon to anterior abdominal wall and vaginal cuff Surgery/Procedure Performed:: Diagnostic laparascopy, cystoscopy Description of Surgical Findings:: pelvic mass in midline over bladder and vaginal cufff, ovary not well defined but under adehsions. Adhesions of colon to anterior abdominal wall litigation claim representative: Cardenas litigation claim representative: Zaki CATES Type of Anesthesia:: General Anesthesiologist: Judit Sahni Special Medications: none Specimen's removed: none Drains: none Estimated Blood Loss (mL): 10cc Fluids Replaced: 500 cc LR Description of Procedure: The patient was taken to the operating room where she was prepped and draped in the dorsolithotomy position. A sponge stick was placed in the vagina countertraction a gainst the vaginal cuff. Attention was turned to the abdomen. All port sites were infiltrated with 0.5% Marcaine before skin incisions were made. A 5 mm intraumbilical incision was made. The anterior a bdominal wall was tented up with 2 towel clamps while a 5 mm blade less trocar and sleeve were directly inserted. Intraperitoneal placement was confirmed with the laparoscope. The pneumoperitoneum was c reated and the underlying abdominal contents were intact. The patient was placed in Trendelenburg. Right lower quadrant port was placed under direct visualization lateral to the inferior epigastric vess els. The bowel was swept away. There was a large midline pelvic mass consistent preoperative measurements of 8 cm mass. It was very firm. There were some adhesions of the colon to the anterior abdominal wall into the bottom portion of the mass. Upon trying to sweep the bowel out from under the mass, there is a small amount of white tissue in some of the bowel adhesions that appeared to be the ovary. T his appeared to be separate from the mass. The peritoneal surfaces were smooth. Bladder and vaginal cuff were unable to be visualized because of the location the pelvic mass. It was uncertain where the mass was arising from, decision was made to proceed with cystoscopy. The patient's urethra was very small and we had to use the pediatric cystoscope in order to enter the urethra. The bladder was diste nded with normal saline and the bladder was intact without masses or lesions. There is no obvious deformity of the bladder from the pelvic mass. At this point the decision was made to end the case and i f the patient desires further intervention we will recommend consultation with ACCOUNT COORDINATOR oncology at a tertiary care center. The lateral ports were removed under direct visualization and no active bleeding wa s noted. The pneumoperitoneum was released. The skin incisions were closed with Monocryl suture in a subcuticular fashion and skin glue. The vaginal instruments were removed and the vaginal sweep was c ompleted by me. The procedure was performed by me with assistance. All sponge and needle counts were correct and the patient was taken to the recovery room in stable condition. Grafts/Implants Used: n one - Complications none - Admit VTE Documentation VTE Present on Admission: No VTE Mechan Device Prophylaxis: SCD's VTE Pharm Prophylaxis ordered?: No Reason prophylaxis not ordered:: Procedure Not Indicated 09/17/17 1503 <Electronically signed by Tracey Barnhart MD> Date Tracey Barnhart MD CC: Maddy Monterroso NP; Tracey Barnhart MD Signed 17-Sep-2017 Operative Report Result: Comments: See Note; NOTES: [facility] Medical Records Department [address] [place] [address] Operative Report 09/17/17 1310 MR#: [id number] Acct: [id number] Name: DAYANARA MURRAY Rep #: [id number] : 1960 56 From: Tracey Barnhart MD PCP: Maddy Monterroso NP Status: REG SD Y Location: [place] [address] ADDENDUM by Tracey Barnhart MD on 09/17/17 at 1454 Code Visit DISREGARD THIS OPERATIVE REPORT< ENTERED ERRONEOUSLY> SEE REPORT FROM APPROX 1500 for today's surgery 09/17/17 1454 <Electronically signed by Tracey Barnhart MD> Date Tracey Barnhart MD cc: Maddy Monterroso ARCHITECTURAL REPRESENTATIVE; Tracey Barnhart MD * Signed Report of Operation Date of Procedure: 09/17/17 Pre- Operative Diagnosis: LLQ pain, left adenexal ma ss Post-Operative Diagnosis: LLQ pain, extensive adhesions of sigmonid colon over bladder and left pelvic side wall, right ovary small and atrophic and adhered to posterior side wall Surgery/Procedure P erformed:: Diagnostic laparascopy Description of Surgical Findings:: Extensive adhesions of sigmoid colon, normal atrophic right ovary and tube, left tube not able to be identified litigation claim representative: Angela Bennett Type of Anesthesia:: General Anesthesiologist: Judit Sahni Special Medications: none Specimen's removed: none Drains: none Estimated Blood Loss (mL): 10cc Fluids Replaced: 500 cc LR Description of Procedure: The patient was taken to the operating room where she was prepped and draped in the dorsolithotomy position. A weighted speculum was placed in the vagina and a sponge stick wa s placed in the vagina. The cervix is absent due to previous hysterectomy. Attention was turned to the abdomen. All port sites were infiltrated with 0.5% Marcaine before skin incisions were made. A 5 m m [intraumbilical] incision was made. The anterior abdominal wall was tented up with 2 towel clamps while a 5 mm blade less trocar and sleeve were inserted with vertical trocar under visualization. Intr aperitoneal placement was confirmed with the laparoscope. The pneumoperitoneum was created and the underlying abdominal contents were intact. The patient was placed in Trendelenburg. Right and left lowe r quadrant ports were placed under direct visualization lateral to the inferior epigastric vessels. The bowel was swept away and the above findings were noted. Was noted that there were large amount of adhesions of the sigmoid colon clear up to the anterior abdominal wall completely obscuring the vaginal cuff, left ovary, and bladder. Obvious windows in this to initiate adhesion lysis. We consulted w ith the general surgeon intraoperatively who arrives and upon inspection of the pelvic contents, recommended that we did not initiate extensive adhesional lysis at this time, as it significant risk of p ossible bowel injury or resection. The peritoneum of the remaining abdominal contents was smooth. There is no ascites. The right ovary was very atrophic and completely adhered to the right pelvic sidewa ll and actually suspended from the sidewall. Small tubal remnant that appeared normal. Point decision was made to terminate the case. The lateral ports were removed under direct visualization and no act gustavo bleeding was noted. The pneumoperitoneum was released. The skin incisions were closed with Monocryl suture in a subcuticular fashion and skin glue and the student with me present.. The vaginal inst ruments were removed and the vaginal sweep was completed by me. The procedure was performed by me with assistance other than as dictated above. All sponge and needle counts were correct and the patient was taken to the recovery room in stable condition. Grafts/Implants Used: none - Complications none - Admit VTE Documentation VTE Present on Admission: No VTE Mechan Device Prophylaxis: SCD's VTE P harm Prophylaxis ordered?: No Reason prophylaxis not ordered:: Procedure Not Indicated 09/17/17 1316 <Electronically signed by Tracey Barnhart MD> Date Tracey Barnhart MD CC: Maddy Monterroso NP; Tracey Barnhart MD Signed 17-Sep-2017 Operative Report Result: Comments: See Note; NOTES: [facility] Medical Records Department [address] [place] [address] Operative Report 09/17/17 1310 MR#: [id number] Acct: [id number] Name: DAYANARA MURRAY Rep #: [id number] : 1960 56 From: Tracey Barnhart MD PCP: Maddy Monterroso NP Status: REG SDC Y Location: [place] [address] Report of Operation Date of Procedure: 09/17/17 Pre-Operative Diagnosis: LLQ p ain, left adenexal mass Post-Operative Diagnosis: LLQ pain, extensive adhesions of sigmonid colon over bladder and left pelvic side wall, right ovary small and atrophic and adhered to posterior side wal l Surgery/Procedure Performed:: Diagnostic laparascopy Description of Surgical Findings:: Extensive adhesions of sigmoid colon, normal atrophic right ovary and tube, left tube not able to be identified litigation claim representative: Angela Baumann Type of Anesthesia:: General Anesthesiologist: Juidt Sahni Special Medications: none Specimen's removed: none Drains: none Estimated Blood Loss (mL): 10cc Fluids Replaced: 500 cc LR Description of Procedure: The patient was taken to the operating room where she was prepped and draped in the dorsolithotomy position. A weighted speculum was placed in the vagina and a sponge stick was placed in the vagina. The cervix is absent due to previous hysterectomy. Attention was turned to the abdomen. All port sites were infiltrated with 0.5% Marcaine before skin incis ions were made. A 5 mm [intraumbilical] incision was made. The anterior abdominal wall was tented up with 2 towel clamps while a 5 mm blade less trocar and sleeve were inserted with vertical trocar unde r visualization. Intraperitoneal placement was confirmed with the laparoscope. The pneumoperitoneum was created and the underlying abdominal contents were intact. The patient was placed in Trendelenburg . Right and left lower quadrant ports were placed under direct visualization lateral to the inferior epigastric vessels. The bowel was swept away and the above findings were noted. Was noted that there were large amount of adhesions of the sigmoid colon clear up to the anterior abdominal wall completely obscuring the vaginal cuff, left ovary, and bladder. Obvious windows in this to initiate adhesion lysis. We consulted with the general surgeon intraoperatively who arrives and upon inspection of the pelvic contents, recommended that we did not initiate extensive adhesional lysis at this time, as it significant risk of possible bowel injury or resection. The peritoneum of the remaining abdominal contents was smooth. There is no ascites. The right ovary was very atrophic and completely adhered to th e right pelvic sidewall and actually suspended from the sidewall. Small tubal remnant that appeared normal. Point decision was made to terminate the case. The lateral ports were removed under direct vis ualization and no active bleeding was noted. The pneumoperitoneum was released. The skin incisions were closed with Monocryl suture in a subcuticular fashion and skin glue and the student with prese nt.. The vaginal instruments were removed and the vaginal sweep was completed by me. The procedure was performed by me with assistance other than as dictated above. All sponge and needle counts were cor rect and the patient was taken to the recovery room in stable condition. Grafts/Implants Used: none - Complications none - Admit VTE Documentation VTE Present on Admission: No VTE Mechan Device Pro phylaxis: SCD's VTE Pharm Prophylaxis ordered?: No Reason prophylaxis not ordered:: Procedure Not Indicated 09/17/17 1316 <Electronically signed by Tracey Barnhart MD> Date Tracey Barnhart MD CC: Maddy Monterroso NP; Tracey Barnhart MD Signed 17-Sep-2017 Discharge Instruction Result: Comments: See Note; NOTES: [facility] Medical Records Department [address] [place] [address] Instructions for Home/Discharge Instructions 09/17/17 1229 MR#: [id number] Acct: [id number] Name: DAYANARA MURRAY Rep #: [id number] : 1960 56 From: rTacey Barnhart MD PCP: Maddy Montreroso NP Status: REG SDC Discharge Diet: No Restrictions - Increase fluid intake for the next 48 h ours. Discharge Activity: Return to Normal Activity, May Drive - when you are no longer taking pain/narcotic meds., May Shower, May Take a Tub Bath - in 7 days May resume sexual activity in: 1-2 weeks A dditional Activity Instructions:: Ambulate often the next week after surgery. Nothing in the vagina for 5 days. Call your doctor if your incision/area has: Continuous Slow Oozing, Sudden Increased Bleed ing, Increased Pain/ Swelling, Increased Redness, Foul Smelling Discharge Call your doctor if you observe: Fever of 101 or Higher Cleanse incision/area with: Soap AND Water, - - Your incision has skin g lue, it can get wet. Do not peel off the glue for 10-14 days. Allergies/Adverse Reactions: Allergies morphine Adverse Reaction (Verified 09/15/17 15:56) Other CAUSES LOW BP Medications to take at Dis charge Ascorbic Acid [Vitamin C] 1,000 mg PO DAILY@0800 05/19/13 Atenolol [Tenormin (beta milan)] 25 mg PO LUNCH 05/19/13 Lisinopril [Zestril] 10 mg PO DAILY 05/19/13 Amoxicillin 500 mg PO TID Levothyroxine [Synthroid] 137 mcg PO DAILY 09/15/17 Metformin HCl 500 mg PO DAILY 09/15/17 Hydrocodone/Acetaminophen [[place] 5-325 Tablet] 1 each PO Q6H PRN PRN 6 Days #20 tablet 09/17/17 Ibuprofen [ Motrin] 600 mg PO Q6H PRN #30 tab 09/17/17 The following prescriptions were given: Hydrocodone/Acetaminophen [[place] 5-325 Tablet] 1 each PO Q6H PRN PRN 6 Days #20 tablet PRN Reason: Pain Ibuprofen [Mo luz] 600 mg PO Q6H PRN #30 tab PRN Reason: Pain Primary Care Physician: Maddy Monterroso [Primary Care Provider] - Please Follow Up With: Tracey Barnhart MD - [phone] When: 1-2 weeks or as needed in my office 09/17/17 1230 <Electronically signed by Tracey Barnhart MD> Date Tracey Barnhart MD CC: Maddy Monterroso NP 26-Aug-2017 Abdomen/Pelvis without Cont Result: Comments: See Note; NOTES: [facility] Imaging Services [address] [place] [id number] Abdomen/Pelvis without Cont MR#: [id number] Acct: [id number] Name: DAYANARA MURRAY Rep # : [id number] : 1960 F 56 From: Alejandra Urban MD PCP: Maddy Monterroso NP Status: REG CLI Study: Abdomen/Pelvis without Cont Date of Exam: 08/26/17 Exam# [id number] Ordering Dr: Maddy Monterroso Abdomen And Pelvis W/O Contrast INDICATION: Right flank pain x months. COMPARISON: None TECHNIQUE: Axial CT imaging of the abdomen and pelvis without contrast. Coronal and sagittal reformatted imag es. Radiation dose optimization technique applied. FINDINGS: Visualized lung bases are clear. The heart size is normal. The liver is normal in size and density. Gallbladder is not well seen, may be co ntracted or surgically absent. The spleen appears to be surgically absent. A residual splenule is seen. A punctate renal calculus, less than 1 mm is seen in the midpole region of the right kidney. There is no evidence of hydronephrosis. A punctate, less than 1 mm calcific density is seen in the inferior pole region of the left kidney, no evidence of hydronephrosis. The bowel loops are nondistended. Th e appendix is unremarkable. There is sigmoid diverticulosis without evidence of acute diverticulitis. There is no evidence of free air or free fluid. There is a 5.8 cm cyst with peripheral soft tissue m aterial seen in the central pelvis, may represent the ovary with a large cyst. The urinary bladder is decompressed. The uterus and second ovary are not seen. CT/Abdomen/Pelvis witho ut Cont IMPRESSION: 5.8 cm cystic structure in the pelvis with peripheral soft tissue density, may represent a large cyst arising from the ovary. Please correlate with pelvic ultrasound. Follow-up in 2 -3 cycles is recommended to confirm stability or resolution. The uterus, second ovary, gallbladder, and spleen are not seen, may be surgically absent, please correlate with patient's surgical history. Sigmoid diverticulosis without evidence of acute diverticulitis. Normal appendix. Punctate nonobstructing bilateral renal calculi, no evidence of hydronephrosis. at 0059 Reported and signed by: Alejandra Urban MD Electronically Signed: Alejandra Urban MD at 23:57 EST Tel , Service supp ort , CC: Maddy Monterroso NP Salesperson Furniture: Signed 04-Aug-2016 Kidney and Bladder Result: Comments: See Note; NOTES: [facility] Imaging Services [address] [place] [address] [place] 4d Kidney and Bladder MR#: [id number] Acct: [id number] Name: DAYANARA MURRAY Rep #: [id number] : 1960 F 55 From: Jamie Monique DO PCP: Maddy Monterroso Status: REG CLI Study: Kidney and Bladder Date of Exam: 08/04/16 Exam# [id number] Ordering Dr: Maddy Monterroso STUDY: RENAL ULTRASO UND - COMPLETE REASON FOR EXAM: Female, 55 years old. Right-sided flank pain TECHNIQUE: Ultrasound evaluation of the kidneys was performed with real-time and static goldstein-scale imaging. COMPARISON: No ne. FINDINGS: RIGHT KIDNEY: Normal location of the right kidney, which is normal in size. The right kidney measures 10.0 cm. There is a normal cortex of the right k idney. The renal cortex measures 1.1 cm. There is no right renal mass or cyst. Small calculus measuring 4 x 3 x 2 mm There is mild hydronephrosis of the right kidney. DISTAL RIGHT URETER: There is non- visualization of the distal right ureter. There is no demonstrated right ureterovesical junction calculus. There is no demonstrated right ureteral jet. LEFT KIDNEY: Normal location of the left kidney, which is normal in size. The left kidney measures 9.3 cm. There is a normal cortex of the left kidney. The renal cortex measures 1.4 cm. There is no left renal mass or cyst. There are no left renal calc reba. There is no left hydronephrosis. DISTAL LEFT URETER: There is non-visualization of the distal left ureter. There is no demonstrated left ureterovesical junction calculus. There is no demonstrated left ureteral jet. BLADDER: The distended urinary bladder has a volume of 134 ml. The empty urinary bladder has a volume of ml. There is a normal wall thickness of the distended urinary bladder. There is no demonstrated mass within the urinary bladder. There are no demonstrated bladder calculi. Incidental finding of known right ovarian cyst measuring 5.5 x 4.7 x 4.9 cm. US/Kidney and Bladder IMPRESSION: Small right renal calculus with mild hydronephrosis. Normal left kidney. Normal bladder. 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 Status: Active Tobacco use: Former smoker. Status: Active Smoking Status Name Dates Details Former smoker Vital Signs Date Test Result Details :12 Temperature 97.7 f Pulse 84 /min Comments: Pattern: Regular Respiration Rate 17 /min Comments: Pattern: Unlabored O2 SAT 96 % Comments: Room air BP Systolic 124 mm[Hg] Comments: Patient Position: Sitting; Cuff Location: Left Arm; Cuff Size: Standard BP Diastolic 82 mm[Hg] Comments: Patient Position: Sitting; Cuff Location: Left Arm; Cuff Size: Standard Weight 187.125 lb Height 66 in Body Mass Index Calculated 30.2 kg/m2 Body Surface Area Calculated 1.94 m2 :36 Temperature 97.3 f Pulse 81 /min Comments: Pattern: Regular Respiration Rate 16 /min Comments: Pattern: Unlabored O2 SAT 97 % Comments: Room air BP Systolic 132 mm[Hg] Comments: Patient Position: Sitting; Cuff Location: Left Arm; Cuff Size: Standard BP Diastolic 78 mm[Hg] Comments: Patient Position: Sitting; Cuff Location: Left Arm; Cuff Size: Standard Weight 189 lb Height 66 in Body Mass Index Calculated 30.51 kg/m2 Body Surface Area Calculated 1.95 m2 :34 Temperature 97.7 f Pulse 78 /min Comments: Pattern: Regular Respiration Rate 17 /min Comments: Pattern: Unlabored O2 SAT 95 % Comments: Room air BP Systolic 118 mm[Hg] Comments: Patient Position: Sitting; Cuff Location: Left Arm; Cuff Size: Standard BP Diastolic 78 mm[Hg] Comments: Patient Position: Sitting; Cuff Location: Left Arm; Cuff Size: Standard Weight 187.375 lb Height 66 in Body Mass Index Calculated 30.24 kg/m2 Body Surface Area Calculated 1.95 m2 :05 Temperature 97.7 f Pulse 89 /min Comments: Pattern: Regular Respiration Rate 18 /min Comments: Pattern: Unlabored O2 SAT 97 % Comments: Room air BP Systolic 140 mm[Hg] Comments: Patient Position: Sitting; Cuff Location: Left Arm; Cuff Size: Standard BP Diastolic 76 mm[Hg] Comments: Patient Position: Sitting; Cuff Location: Left Arm; Cuff Size: Standard Weight 186.375 lb Height 66 in Body Mass Index Calculated 30.08 kg/m2 Body Surface Area Calculated 1.94 m2 :24 Temperature 98 f Comments: Method: Temporal Pulse 75 /min Comments: Pattern: Regular Respiration Rate 16 /min Comments: Pattern: Unlabored O2 SAT 98 % Comments: Room air BP Systolic 138 mm[Hg] Comments: Patient Position: Sitting; Cuff Location: Left Arm; Cuff Size: Standard BP Diastolic 78 mm[Hg] Comments: Patient Position: Sitting; Cuff Location: Left Arm; Cuff Size: Standard Weight 179 lb Height 66 in Body Mass Index Calculated 28.89 kg/m2 Body Surface Area Calculated 1.91 m2 :09 Temperature 97 f Pulse 97 /min Comments: Pattern: Regular Respiration Rate 16 /min Comments: Pattern: Unlabored O2 SAT 96 % Comments: Room air BP Systolic 118 mm[Hg] Comments: Patient Position: Sitting; Cuff Location: Left Arm; Cuff Size: Standard BP Diastolic 76 mm[Hg] Comments: Patient Position: Sitting; Cuff Location: Left Arm; Cuff Size: Standard Weight 177 lb Height 66 in Body Mass Index Calculated 28.57 kg/m2 Body Surface Area Calculated 1.9 m2 :15 Temperature 97.8 f Pulse 77 /min Comments: Pattern: Regular Respiration Rate 16 /min Comments: Pattern: Unlabored O2 SAT 96 % Comments: Room air BP Systolic 118 mm[Hg] Comments: Patient Position: Sitting; Cuff Location: Left Arm; Cuff Size: Standard BP Diastolic 76 mm[Hg] Comments: Patient Position: Sitting; Cuff Location: Left Arm; Cuff Size: Standard Weight 175 lb Height 66 in Body Mass Index Calculated 28.25 kg/m2 Body Surface Area Calculated 1.89 m2 :00 Temperature 98.8 f Pulse 91 /min Comments: Pattern: Regular Respiration Rate 17 /min Comments: Pattern: Unlabored O2 SAT 98 % Comments: Room air BP Systolic 124 mm[Hg] Comments: Patient Position: Sitting; Cuff Location: Left Arm; Cuff Size: Standard BP Diastolic 78 mm[Hg] Comments: Patient Position: Sitting; Cuff Location: Left Arm; Cuff Size: Standard Weight 177.5 lb Height 66 in Body Mass Index Calculated 28.65 kg/m2 Body Surface Area Calculated 1.9 m2 :17 Temperature 97.2 f Pulse 83 /min Comments: Pattern: Regular Respiration Rate 17 /min Comments: Pattern: Unlabored O2 SAT 97 % Comments: Room air BP Systolic 122 mm[Hg] Comments: Patient Position: Sitting; Cuff Location: Left Arm; Cuff Size: Standard BP Diastolic 78 mm[Hg] Comments: Patient Position: Sitting; Cuff Location: Left Arm; Cuff Size: Standard Weight 178 lb Height 66 in Body Mass Index Calculated 28.73 kg/m2 Body Surface Area Calculated 1.9 m2 :18 Temperature 98.2 f Pulse 79 /min Comments: Pattern: Regular Respiration Rate 17 /min Comments: Pattern: Unlabored O2 SAT 96 % Comments: Room air BP Systolic 118 mm[Hg] Comments: Patient Position: Sitting; Cuff Location: Left Arm; Cuff Size: Standard BP Diastolic 78 mm[Hg] Comments: Patient Position: Sitting; Cuff Location: Left Arm; Cuff Size: Standard Weight 180.125 lb Height 66 in Body Mass Index Calculated 29.07 kg/m2 Body Surface Area Calculated 1.91 m2 :08 Temperature 97.8 f Pulse 84 /min Comments: Pattern: Regular Respiration Rate 18 /min Comments: Pattern: Unlabored O2 SAT 97 % Comments: Room air BP Systolic 122 mm[Hg] Comments: Patient Position: Sitting; Cuff Location: Left Arm; Cuff Size: Standard BP Diastolic 80 mm[Hg] Comments: Patient Position: Sitting; Cuff Location: Left Arm; Cuff Size: Standard Weight 180.125 lb Height 66 in Body Mass Index Calculated 29.07 kg/m2 Body Surface Area Calculated 1.91 m2 :15 Temperature 97.8 f Pulse 67 /min Comments: Pattern: Regular Respiration Rate 17 /min Comments: Pattern: Unlabored O2 SAT 96 % Comments: Room air BP Systolic 120 mm[Hg] Comments: Patient Position: Sitting; Cuff Location: Left Arm; Cuff Size: Standard BP Diastolic 82 mm[Hg] Comments: Patient Position: Sitting; Cuff Location: Left Arm; Cuff Size: Standard Weight 182.5 lb Height 66 in Body Mass Index Calculated 29.46 kg/m2 Body Surface Area Calculated 1.92 m2 :23 Temperature 97.4 f Pulse 76 /min Comments: Pattern: Regular Respiration Rate 18 /min Comments: Pattern: Unlabored O2 SAT 97 % Comments: Room air BP Systolic 116 mm[Hg] Comments: Patient Position: Sitting; Cuff Location: Left Arm; Cuff Size: Standard BP Diastolic 72 mm[Hg] Comments: Patient Position: Sitting; Cuff Location: Left Arm; Cuff Size: Standard Weight 185.5 lb Height 66 in Body Mass Index Calculated 29.94 kg/m2 Body Surface Area Calculated 1.94 m2 :06 Temperature 97 f Pulse 98 /min Comments: Pattern: Regular Respiration Rate 16 /min Comments: Pattern: Unlabored O2 SAT 95 % Comments: Room air BP Systolic 124 mm[Hg] Comments: Patient Position: Sitting; Cuff Location: Left Arm; Cuff Size: Standard BP Diastolic 80 mm[Hg] Comments: Patient Position: Sitting; Cuff Location: Left Arm; Cuff Size: Standard Weight 191.375 lb Height 66 in Body Mass Index Calculated 30.89 kg/m2 Body Surface Area Calculated 1.96 m2 :39 Temperature 97.3 f Pulse 81 /min Comments: Pattern: Regular Respiration Rate 16 /min Comments: Pattern: Unlabored O2 SAT 98 % Comments: Room air BP Systolic 122 mm[Hg] Comments: Patient Position: Sitting; Cuff Location: Left Arm; Cuff Size: Standard BP Diastolic 84 mm[Hg] Comments: Patient Position: Sitting; Cuff Location: Left Arm; Cuff Size: Standard Weight 191.375 lb Height 66 in Body Mass Index Calculated 30.89 kg/m2 Body Surface Area Calculated 1.96 m2 :12 Temperature 98.2 f Pulse 85 /min Comments: Pattern: Regular Respiration Rate 16 /min Comments: Pattern: Unlabored O2 SAT 97 % Comments: Room air BP Systolic 124 mm[Hg] Comments: Patient Position: Sitting; Cuff Location: Left Arm; Cuff Size: Standard BP Diastolic 84 mm[Hg] Comments: Patient Position: Sitting; Cuff Location: Left Arm; Cuff Size: Standard Weight 198.375 lb Height 66 in Body Mass Index Calculated 32.02 kg/m2 Body Surface Area Calculated 1.99 m2 :11 Temperature 97.6 f Pulse 77 /min Comments: Pattern: Regular Respiration Rate 16 /min Comments: Pattern: Unlabored O2 SAT 96 % Comments: Room air BP Systolic 126 mm[Hg] Comments: Patient Position: Sitting; Cuff Location: Left Arm; Cuff Size: Standard BP Diastolic 78 mm[Hg] Comments: Patient Position: Sitting; Cuff Location: Left Arm; Cuff Size: Standard Weight 199 lb Height 66 in Body Mass Index Calculated 32.12 kg/m2 Body Surface Area Calculated 2 m2 :07 Temperature 97.4 f Comments: Method: Oral Pulse 78 /min Comments: Pattern: Regular Respiration Rate 15 /min O2 SAT 98 % Comments: Room air BP Systolic 120 mm[Hg] Comments: Patient Position: Sitting; Cuff Location: Left Arm; Cuff Size: Standard BP Diastolic 70 mm[Hg] Comments: Patient Position: Sitting; Cuff Location: Left Arm; Cuff Size: Standard Weight 198.25 lb Height 66 in Body Mass Index Calculated 32 kg/m2 Body Surface Area Calculated 1.99 m2 :45 Temperature 97.8 f Comments: Method: Oral Pulse 76 /min Comments: Pattern: Regular Respiration Rate 16 /min O2 SAT 98 % Comments: Room air BP Systolic 120 mm[Hg] Comments: Patient Position: Sitting; Cuff Location: Left Arm; Cuff Size: Standard BP Diastolic 76 mm[Hg] Comments: Patient Position: Sitting; Cuff Location: Left Arm; Cuff Size: Standard Weight 199.4375 lb Height 66 in Body Mass Index Calculated 32.19 kg/m2 Body Surface Area Calculated 2 m2 :13 Temperature 97.4 f Comments: Method: Oral Pulse 80 /min Comments: Pattern: Regular Respiration Rate 17 /min O2 SAT 97 % Comments: Room air BP Systolic 126 mm[Hg] Comments: Patient Position: Sitting; Cuff Location: Left Arm; Cuff Size: Standard BP Diastolic 78 mm[Hg] Comments: Patient Position: Sitting; Cuff Location: Left Arm; Cuff Size: Standard Weight 199.4375 lb Height 66 in Body Mass Index Calculated 32.19 kg/m2 Body Surface Area Calculated 2 m2 :16 Temperature 97.4 f Comments: Method: Oral Pulse 66 /min Comments: Pattern: Regular Respiration Rate 18 /min O2 SAT 97 % Comments: Room air BP Systolic 122 mm[Hg] Comments: Patient Position: Sitting; Cuff Location: Left Arm; Cuff Size: Standard BP Diastolic 78 mm[Hg] Comments: Patient Position: Sitting; Cuff Location: Left Arm; Cuff Size: Standard Weight 199.4375 lb Height 66 in Body Mass Index Calculated 32.19 kg/m2 Body Surface Area Calculated 2 m2 :13 Temperature 98.1 f Comments: Method: Oral Pulse 88 /min Comments: Pattern: Regular Respiration Rate 15 /min O2 SAT 98 % Comments: Room air BP Systolic 136 mm[Hg] Comments: Patient Position: Sitting; Cuff Location: Left Arm; Cuff Size: Standard BP Diastolic 80 mm[Hg] Comments: Patient Position: Sitting; Cuff Location: Left Arm; Cuff Size: Standard :27 Temperature 97.8 f Comments: Method: Temporal Pulse 96 /min Comments: Pattern: Regular Respiration Rate 16 /min Comments: Pattern: Unlabored O2 SAT 97 % Comments: Room air BP Systolic 142 mm[Hg] Comments: Patient Position: Sitting; Cuff Location: Left Arm; Cuff Size: Standard BP Diastolic 76 mm[Hg] Comments: Patient Position: Sitting; Cuff Location: Left Arm; Cuff Size: Standard Weight 201 lb Height 66 in Body Mass Index Calculated 32.44 kg/m2 Body Surface Area Calculated 2 m2 :18 Pulse 82 /min Comments: Pattern: Regular Respiration Rate 16 /min Comments: Pattern: Unlabored O2 SAT 97 % Comments: Room air BP Systolic 142 mm[Hg] Comments: Patient Position: Sitting; Cuff Location: Left Arm; Cuff Size: Standard BP Diastolic 94 mm[Hg] Comments: Patient Position: Sitting; Cuff Location: Left Arm; Cuff Size: Standard Weight 212.375 lb Height 66 in Body Mass Index Calculated 34.28 kg/m2 Body Surface Area Calculated 2.05 m2 :38 Temperature 98.9 f Comments: Method: Oral Pulse 92 /min Comments: Pattern: Regular Respiration Rate 16 /min O2 SAT 98 % Comments: Room air BP Systolic 120 mm[Hg] Comments: Patient Position: Sitting; Cuff Location: Left Arm; Cuff Size: Standard BP Diastolic 80 mm[Hg] Comments: Patient Position: Sitting; Cuff Location: Left Arm; Cuff Size: Standard Weight 206.375 lb Height 66 in Body Mass Index Calculated 33.31 kg/m2 Body Surface Area Calculated 2.03 m2 :48 Temperature 98.3 f Comments: Method: Oral Pulse 88 /min Comments: Pattern: Regular Respiration Rate 16 /min O2 SAT 97 % Comments: Room air BP Systolic 112 mm[Hg] Comments: Patient Position: Sitting; Cuff Location: Left Arm; Cuff Size: Standard BP Diastolic 70 mm[Hg] Comments: Patient Position: Sitting; Cuff Location: Left Arm; Cuff Size: Standard Weight 200.1875 lb Height 66 in Body Mass Index Calculated 32.31 kg/m2 Body Surface Area Calculated 2 m2 :17 Temperature 98.7 f Comments: Method: Oral Pulse 88 /min Comments: Pattern: Regular Respiration Rate 18 /min Comments: Pattern: Unlabored O2 SAT 98 % Comments: Room air BP Systolic 102 mm[Hg] Comments: Patient Position: Sitting; Cuff Location: Left Arm; Cuff Size: Standard BP Diastolic 68 mm[Hg] Comments: Patient Position: Sitting; Cuff Location: Left Arm; Cuff Size: Standard Weight 200.1875 lb Height 66 in Body Mass Index Calculated 32.31 kg/m2 Body Surface Area Calculated 2 m2 :46 Temperature 99 f Comments: Method: Oral Pulse 92 /min Comments: Pattern: Regular Respiration Rate 18 /min O2 SAT 98 % Comments: Room air BP Systolic 122 mm[Hg] Comments: Patient Position: Sitting; Cuff Location: Left Arm; Cuff Size: Standard BP Diastolic 78 mm[Hg] Comments: Patient Position: Sitting; Cuff Location: Left Arm; Cuff Size: Standard Weight 200.1875 lb Height 66 in Body Mass Index Calculated 32.31 kg/m2 Body Surface Area Calculated 2 m2 :15 Temperature 98.5 f Comments: Method: Oral Pulse 78 /min Comments: Pattern: Regular Respiration Rate 18 /min O2 SAT 96 % Comments: Room air BP Systolic 120 mm[Hg] Comments: Patient Position: Sitting; Cuff Location: Left Arm; Cuff Size: Standard BP Diastolic 76 mm[Hg] Comments: Patient Position: Sitting; Cuff Location: Left Arm; Cuff Size: Standard Weight 200.1875 lb Height 66 in Body Mass Index Calculated 32.31 kg/m2 Body Surface Area Calculated 2 m2 :32 Temperature 98.4 f Comments: Method: Oral Pulse 88 /min Comments: Pattern: Regular Respiration Rate 16 /min O2 SAT 96 % Comments: Room air BP Systolic 124 mm[Hg] Comments: Patient Position: Sitting; Cuff Location: Left Arm; Cuff Size: Standard BP Diastolic 80 mm[Hg] Comments: Patient Position: Sitting; Cuff Location: Left Arm; Cuff Size: Standard Weight 200.1875 lb Height 66 in Body Mass Index Calculated 32.31 kg/m2 Body Surface Area Calculated 2 m2 :04 Temperature 97.6 f Comments: Method: Oral Pulse 78 /min Comments: Pattern: Regular Respiration Rate 16 /min Comments: Pattern: Unlabored BP Systolic 122 mm[Hg] Comments: Patient Position: Sitting; Cuff Location: Left Arm; Cuff Size: Standard BP Diastolic 82 mm[Hg] Comments: Patient Position: Sitting; Cuff Location: Left Arm; Cuff Size: Standard Weight 190.4375 lb Height 66 in Body Mass Index Calculated 30.74 kg/m2 Body Surface Area Calculated 1.96 m2 :06 Pulse 72 /min Comments: Pattern: Regular Respiration Rate 16 /min BP Systolic 134 mm[Hg] Comments: Patient Position: Sitting; Cuff Location: Left Arm; Cuff Size: Standard BP Diastolic 80 mm[Hg] Comments: Patient Position: Sitting; Cuff Location: Left Arm; Cuff Size: Standard Weight 184.375 lb Height 66 in Body Mass Index Calculated 29.76 kg/m2 Body Surface Area Calculated 1.93 m2 :56 Temperature 98.8 f Comments: Method: Oral Pulse 80 /min Comments: Pattern: Regular Respiration Rate 17 /min O2 SAT 94 % Comments: Room air BP Systolic 120 mm[Hg] Comments: Patient Position: Sitting; Cuff Location: Left Arm; Cuff Size: Standard BP Diastolic 82 mm[Hg] Comments: Patient Position: Sitting; Cuff Location: Left Arm; Cuff Size: Standard Weight 184.375 lb Height 66 in Body Mass Index Calculated 29.76 kg/m2 Body Surface Area Calculated 1.93 m2 :43 Temperature 98.6 f Comments: Method: Oral Pulse 76 /min Comments: Pattern: Regular Respiration Rate 16 /min Comments: Pattern: Unlabored BP Systolic 124 mm[Hg] Comments: Patient Position: Sitting; Cuff Location: Left Arm; Cuff Size: Standard BP Diastolic 78 mm[Hg] Comments: Patient Position: Sitting; Cuff Location: Left Arm; Cuff Size: Standard Weight 189.0625 lb Height 66 in Body Mass Index Calculated 30.52 kg/m2 Body Surface Area Calculated 1.95 m2 :43 Temperature 98.3 f Comments: Method: Oral Pulse 76 /min Comments: Pattern: Regular Respiration Rate 16 /min Comments: Pattern: Unlabored BP Systolic 118 mm[Hg] Comments: Patient Position: Sitting; Cuff Location: Left Arm; Cuff Size: Standard BP Diastolic 78 mm[Hg] Comments: Patient Position: Sitting; Cuff Location: Left Arm; Cuff Size: Standard Weight 186.5625 lb Height 66 in Body Mass Index Calculated 30.11 kg/m2 Body Surface Area Calculated 1.94 m2 :59 Pulse 74 /min Comments: Pattern: Regular Respiration Rate 16 /min Comments: Pattern: Unlabored BP Systolic 122 mm[Hg] Comments: Patient Position: Sitting; Cuff Location: Left Arm; Cuff Size: Standard BP Diastolic 80 mm[Hg] Comments: Patient Position: Sitting; Cuff Location: Left Arm; Cuff Size: Standard Weight 191.1875 lb Height 66 in Body Mass Index Calculated 30.86 kg/m2 Body Surface Area Calculated 1.96 m2 :41 Temperature 97 f Comments: Method: Oral Pulse 68 /min Comments: Pattern: Regular Respiration Rate 16 /min Comments: Pattern: Unlabored BP Systolic 126 mm[Hg] Comments: Patient Position: Sitting; Cuff Location: Left Arm; Cuff Size: Standard BP Diastolic 84 mm[Hg] Comments: Patient Position: Sitting; Cuff Location: Left Arm; Cuff Size: Standard Weight 191.1875 lb Height 66 in Body Mass Index Calculated 30.86 kg/m2 Body Surface Area Calculated 1.96 m2 :14 Pulse 74 /min Comments: Pattern: Regular Respiration Rate 17 /min Comments: Pattern: Unlabored BP Systolic 144 mm[Hg] Comments: Patient Position: Sitting; Cuff Location: Left Arm; Cuff Size: Standard BP Diastolic 84 mm[Hg] Comments: Patient Position: Sitting; Cuff Location: Left Arm; Cuff Size: Standard Weight 189 lb Height 66.3 in Body Mass Index Calculated 30.23 kg/m2 Body Surface Area Calculated 1.96 m2 :40 Temperature 97.2 f Comments: Method: Oral Pulse 68 /min Comments: Pattern: Regular Respiration Rate 18 /min Comments: Pattern: Unlabored BP Systolic 128 mm[Hg] Comments: Patient Position: Sitting; Cuff Location: Left Arm; Cuff Size: Standard BP Diastolic 80 mm[Hg] Comments: Patient Position: Sitting; Cuff Location: Left Arm; Cuff Size: Standard Weight 189 lb Height 66.3 in Body Mass Index Calculated 30.23 kg/m2 Body Surface Area Calculated 1.96 m2 :10 Pulse 60 /min Comments: Pattern: Regular Respiration Rate 20 /min Comments: Pattern: Unlabored BP Systolic 110 mm[Hg] Comments: Patient Position: Sitting; Cuff Location: Left Arm; Cuff Size: Large BP Diastolic 74 mm[Hg] Comments: Patient Position: Sitting; Cuff Location: Left Arm; Cuff Size: Large Weight 186 lb :34 Temperature 98 f Pulse 64 /min Comments: Pattern: Regular Respiration Rate 18 /min Comments: Pattern: Unlabored BP Systolic 112 mm[Hg] Comments: Patient Position: Sitting; Cuff Location: Left Arm; Cuff Size: Large BP Diastolic 84 mm[Hg] Comments: Patient Position: Sitting; Cuff Location: Left Arm; Cuff Size: Large Weight 186 lb :28 Temperature 98.4 f Pulse 72 /min Comments: Pattern: Regular Respiration Rate 18 /min Comments: Pattern: Unlabored BP Systolic 118 mm[Hg] Comments: Patient Position: Sitting; Cuff Location: Right Arm; Cuff Size: Standard BP Diastolic 84 mm[Hg] Comments: Patient Position: Sitting; Cuff Location: Right Arm; Cuff Size: Standard Weight 187 lb :11 BP Systolic 132 mm[Hg] Comments: Patient Position: Sitting; Cuff Location: Left Arm; Cuff Size: Standard BP Diastolic 82 mm[Hg] Comments: Patient Position: Sitting; Cuff Location: Left Arm; Cuff Size: Standard :21 Temperature 98.1 f Comments: Method: Oral Pulse 78 /min Comments: Pattern: Regular Respiration Rate 18 /min Comments: Pattern: Unlabored BP Systolic 130 mm[Hg] Comments: Patient Position: Sitting; Cuff Location: Left Arm; Cuff Size: Standard BP Diastolic 94 mm[Hg] Comments: Patient Position: Sitting; Cuff Location: Left Arm; Cuff Size: Standard Weight 186.25 lb :11 Pulse 72 /min Comments: Pattern: Regular Respiration Rate 18 /min Comments: Pattern: Unlabored BP Systolic 132 mm[Hg] Comments: Patient Position: Sitting; Cuff Location: Left Arm; Cuff Size: Standard BP Diastolic 96 mm[Hg] Comments: Patient Position: Sitting; Cuff Location: Left Arm; Cuff Size: Standard Weight 181 lb :27 Temperature 97.5 f Pulse 68 /min Comments: Pattern: Regular Respiration Rate 18 /min Comments: Pattern: Unlabored BP Systolic 116 mm[Hg] Comments: Patient Position: Sitting; Cuff Location: Left Arm; Cuff Size: Standard BP Diastolic 80 mm[Hg] Comments: Patient Position: Sitting; Cuff Location: Left Arm; Cuff Size: Standard Weight 183 lb :57 Pulse 72 /min Comments: Pattern: Regular Respiration Rate 20 /min Comments: Pattern: Unlabored BP Systolic 122 mm[Hg] Comments: Patient Position: Sitting; Cuff Location: Left Arm; Cuff Size: Large BP Diastolic 78 mm[Hg] Comments: Patient Position: Sitting; Cuff Location: Left Arm; Cuff Size: Large Weight 180.3125 lb Height 0 in Head Circumference 0.00 cm :48 Pulse 88 /min Comments: Pattern: Regular Respiration Rate 20 /min Comments: Pattern: Unlabored BP Systolic 118 mm[Hg] Comments: Patient Position: Sitting; Cuff Location: Left Arm; Cuff Size: Large BP Diastolic 80 mm[Hg] Comments: Patient Position: Sitting; Cuff Location: Left Arm; Cuff Size: Large Weight 182 lb Height 0 in Head Circumference 0.00 cm :30 Temperature 97.7 f Comments: Method: Undefined Pulse 76 /min Comments: Pattern: Regular Respiration Rate 18 /min Comments: Pattern: Undefined BP Systolic 132 mm[Hg] Comments: Patient Position: Sitting; Cuff Location: Right Arm; Cuff Size: Standard BP Diastolic 94 mm[Hg] Comments: Patient Position: Sitting; Cuff Location: Right Arm; Cuff Size: Standard Weight 182 lb Height 0 in Head Circumference 0.00 cm :40 Pulse 72 /min Comments: Pattern: Regular Respiration Rate 18 /min Comments: Pattern: Undefined BP Systolic 116 mm[Hg] Comments: Patient Position: Sitting; Cuff Location: Left Arm; Cuff Size: Standard BP Diastolic 86 mm[Hg] Comments: Patient Position: Sitting; Cuff Location: Left Arm; Cuff Size: Standard Weight 181 lb Height 0 in Head Circumference 0.00 cm :37 Temperature 97.8 f Comments: Method: Undefined Pulse 76 /min Comments: Pattern: Regular Respiration Rate 18 /min Comments: Pattern: Undefined BP Systolic 130 mm[Hg] Comments: Patient Position: Sitting; Cuff Location: Left Arm; Cuff Size: Standard BP Diastolic 100 mm[Hg] Comments: Patient Position: Sitting; Cuff Location: Left Arm; Cuff Size: Standard Weight 187 lb Height 0 in Head Circumference 0.00 cm :02 Temperature 97.8 f Comments: Method: Undefined Pulse 72 /min Comments: Pattern: Regular Respiration Rate 16 /min Comments: Pattern: Undefined BP Systolic 126 mm[Hg] Comments: Patient Position: Sitting; Cuff Location: Left Arm; Cuff Size: Large BP Diastolic 82 mm[Hg] Comments: Patient Position: Sitting; Cuff Location: Left Arm; Cuff Size: Large Weight 179 lb Height 64.25 in Body Mass Index Calculated 30.49 kg/m2 Body Surface Area Calculated 1.87 m2 Head Circumference 0.00 cm :06 Temperature 98.4 f Comments: Method: Oral Pulse 68 /min Comments: Pattern: Regular Respiration Rate 16 /min Comments: Pattern: Unlabored BP Systolic 120 mm[Hg] Comments: Patient Position: Sitting; Cuff Location: Right Arm; Cuff Size: Standard BP Diastolic 72 mm[Hg] Comments: Patient Position: Sitting; Cuff Location: Right Arm; Cuff Size: Standard Weight 173 lb Height 64.25 in Body Mass Index Calculated 29.46 kg/m2 Body Surface Area Calculated 1.84 m2 Head Circumference 0.00 cm :31 Temperature 97.8 f Comments: Method: Oral Pulse 76 /min Comments: Pattern: Regular Respiration Rate 16 /min Comments: Pattern: Unlabored BP Systolic 134 mm[Hg] Comments: Patient Position: Sitting; Cuff Location: Left Arm; Cuff Size: Standard BP Diastolic 88 mm[Hg] Comments: Patient Position: Sitting; Cuff Location: Left Arm; Cuff Size: Standard Weight 169 lb Height 64.25 in Body Mass Index Calculated 28.78 kg/m2 Body Surface Area Calculated 1.83 m2 Head Circumference 0.00 cm :29 Temperature 97.8 f Comments: Method: Oral Pulse 64 /min Comments: Pattern: Regular Respiration Rate 16 /min Comments: Pattern: Unlabored BP Systolic 118 mm[Hg] Comments: Patient Position: Sitting; Cuff Location: Left Arm; Cuff Size: Standard BP Diastolic 70 mm[Hg] Comments: Patient Position: Sitting; Cuff Location: Left Arm; Cuff Size: Standard Weight 164 lb Height 0 in Head Circumference 0.00 cm :05 Temperature 97.9 f Comments: Method: Oral Pulse 70 /min Comments: Pattern: Regular Respiration Rate 16 /min Comments: Pattern: Unlabored BP Systolic 116 mm[Hg] Comments: Patient Position: Sitting; Cuff Location: Left Arm; Cuff Size: Standard BP Diastolic 78 mm[Hg] Comments: Patient Position: Sitting; Cuff Location: Left Arm; Cuff Size: Standard Weight 167 lb Height 0 in Head Circumference 0.00 cm :43 Temperature 98.2 f Comments: Method: Oral Pulse 72 /min Comments: Pattern: Regular Respiration Rate 16 /min Comments: Pattern: Unlabored BP Systolic 118 mm[Hg] Comments: Patient Position: Sitting; Cuff Location: Left Arm; Cuff Size: Standard BP Diastolic 80 mm[Hg] Comments: Patient Position: Sitting; Cuff Location: Left Arm; Cuff Size: Standard Weight 167 lb Height 0 in Head Circumference 0.00 cm :48 Temperature 97.9 f Comments: Method: Oral Pulse 72 /min Comments: Pattern: Regular Respiration Rate 16 /min Comments: Pattern: Undefined Weight 0 lb Height 0 in Head Circumference 0.00 cm :17 Temperature 98.2 f Comments: Method: Oral Pulse 88 /min Comments: Pattern: Regular Respiration Rate 16 /min Comments: Pattern: Unlabored BP Systolic 140 mm[Hg] Comments: Patient Position: Sitting; Cuff Location: Right Arm; Cuff Size: Standard BP Diastolic 90 mm[Hg] Comments: Patient Position: Sitting; Cuff Location: Right Arm; Cuff Size: Standard Weight 173 lb Height 0 in Head Circumference 0.00 cm :47 Temperature 98 f Comments: Method: Oral Pulse 88 /min Comments: Pattern: Regular Respiration Rate 16 /min Comments: Pattern: Unlabored BP Systolic 142 mm[Hg] Comments: Patient Position: Sitting; Cuff Location: Right Arm; Cuff Size: Standard BP Diastolic 86 mm[Hg] Comments: Patient Position: Sitting; Cuff Location: Right Arm; Cuff Size: Standard Weight 175.4375 lb Height 0 in Head Circumference 0.00 cm Results Date Description Value Details :38 Bedside Gl[facility] [address] [place], [place] [address] BEDSIDE GLU 98 mg/dL (Normal) Range: 70-110 Comments: MANAGEMENT OF PATIENT CARE PER NURSING PROTOCOL [id number] Bedside Gl[facility] [id number] [place] [id number] BEDSIDE GLU 94 mg/dL (Normal) Range: 70-110 Comments: MANAGEMENT OF PATIENT CARE PER NURSING PROTOCOL [id number]-Zhm-[id number]:09 Hemoglobin A1c Comments: [facility] [id number] [place], [place], [id number] HGB A1C 6.2 % (Normal) Range: 4.2-6.3 26-Vst-237960:59 Basic Metabolic Profile (BMP) Comments: [facility] [address] [place], [address] GAP 8 (Normal) Range: 5-15 CO2 28.0 mmol/L (Normal) Range: 21.0-32.0 CL 104 mmol/L (Normal) Range: 98-107 K 4.2 mmol/L (Normal) Range: 3.5-5.1 NA 140 mmol/L (Normal) Range: 136-145 CA 8.5 mg/dL (Normal) Range: 8.5-10.1 BUN/CRE 21.2 {RATIO} (Abnormal) Range: 10-20 EST GFR - AA 102 mL/min (Normal) Comments: GFR Calc EST GFR 84 mL/min (Normal) Comments: Non- GFR Calc CREAT,SERUM 0.75 mg/dL (Normal) Range: 0.55-1.02 Comments: The validity of the calculated GFR AND GFRAA in patients over70 years has not been determined. Clinical correlation isessential. BUN 16 mg/dL (Normal) Range: 7-18 GLU 78 mg/dL (Normal) Range: 74-106 Comments: Please note revised GLUCOSE reference range /02/2018. [id number] CBC-Complete Blood Cnt No Diff Comments: [facility] [id number] [place], [address] MPV 11.9 fL (Normal) Range: 6.2-12.0 PLT 369 K/mm3 (Normal) Range: 150-450 RDW SD 43.8 fL (Normal) Range: 35.1-43.9 RDW CV 13.2 % (Normal) Range: 11.6-14.6 MCHC 32.4 {g/gl} (Normal) Range: 32-36 MCH 29.8 pg (Normal) Range: 27.0-32.0 MCV 92.1 fL (Normal) Range: 81-99 HCT 42.0 % (Normal) Range: 37-47 HGB 13.6 g/dL (Normal) Range: 12.0-15.0 RBC 4.56 {M/mm3} (Normal) Range: 4.2-5.4 WBC 7.8 K/mm3 (Normal) Range: 4.4-11.0 [id number] Thyroid Stim Hormone (TSH) Comments: [facility] [address] [place], [address] TSH 1.31 {uIU/mL} (Normal) Range: 0.358-3.74 [id number] Type AND Screen Comments: Surgery Date: 09/17/17Hx of Preganancy in last 3 Months NoEver experience any problems with transfusion(s)? NHx of Transfusion in last 3 Months NReason for Type AND Screen/Red Cells: SURGERYSURGI EJ [facility]ED[facility] [id number] [place], [place], [id number] Antibody Screen NEGATIVE (Normal) BLOOD TYPE GEL A POSITIVE (Normal) 56-Kdm-[id number]:52 HgA1C , Office (35689) HgA1C , Office 5.6 % (Normal) Range: 4.6 - 7.1 [id number]-[id number]:52 Blood Glucose , Office (37697) Blood Glucose , Office 87 (Normal) 22-Wkg-135909:31 Urinalysis, Office (41477) UA - NITRITE Negative (Normal) URINE UROBILINGN OSMAN TIMED Normal mg/dL (Normal) UA - PROTEIN Negative mg/dL (Normal) UA - PH 5 (Abnormal) UA - BLOOD Negative (Normal) UA - SPECIFIC GRAVITY 1.020 (Normal) UA - KETONES Negative mg/dL (Normal) UA - BILIRUBIN Negative (Normal) UA - GLUCOSE Negative (Normal) 58-Sjw-25259:08 Basic Metabolic Profile (BMP) Comments: [facility] [id number] [place], [place], [id number] GAP 8 (Normal) Range: 5-15 CO2 31.0 mmol/L (Normal) Range: 21.0-32.0 CL 102 mmol/L (Normal) Range: 98-107 K 4.4 mmol/L (Normal) Range: 3.5-5.1 NA 141 mmol/L (Normal) Range: 136-145 CA 9.0 mg/dL (Normal) Range: 8.5-10.1 BUN/CRE 21.9 {RATIO} (Abnormal) Range: 10-20 EST GFR - AA 105 mL/min (Normal) Comments: GFR Calc EST GFR 87 mL/min (Normal) Comments: Non- GFR Calc CREAT,SERUM 0.73 mg/dL (Normal) Range: 0.55-1.02 Comments: The validity of the calculated GFR AND GFRAA in patients over70 years has not been determined. Clinical correlation isessential. BUN 16 mg/dL (Normal) Range: 7-18 GLU 96 mg/dL (Normal) Range: 70-110 97-Jyo-93658:08 CBC-Complete Blood Cnt No Diff Comments: [facility] [address] [place], [place], [id number] MPV 12.3 fL (Abnormal) Range: 6.2-12.0 PLT 384 K/mm3 (Normal) Range: 150-450 RDW SD 43.2 fL (Normal) Range: 35.1-43.9 RDW CV 13.1 % (Normal) Range: 11.6-14.6 MCHC 33.3 {g/gl} (Normal) Range: 32-36 MCH 30.7 pg (Normal) Range: 27.0-32.0 MCV 92.0 fL (Normal) Range: 81-99 HCT 43.5 % (Normal) Range: 37-47 HGB 14.5 g/dL (Normal) Range: 12.0-15.0 RBC 4.73 {M/mm3} (Normal) Range: 4.2-5.4 WBC 9.8 K/mm3 (Normal) Range: 4.4-11.0 :17 HgA1C , Office ([id number]) Comments: 5.6 HgA1C , Office 5.6 % (Normal) Range: 4.6 - 7.1 :17 Blood Glucose , Office (42896) Comments: 98 Blood Glucose , Office 98 (Normal) 8-[id number] Microscopic Examination Comments: PATIENT NOT FASTINGPERFORMED BY: [employer] [facility] [id number] Bacteria Few (Normal) Mucus Threads Present (Normal) Cast Type Hyaline casts (Normal) Casts Present {/lpf} (Abnormal) Epithelial Cells (non renal) 0-10 {/hpf} (Normal) Range: 0 - 10 RBC 0-2 {/hpf} (Normal) Range: 0 - 2 WBC 0-5 {/hpf} (Normal) Range: 0 - 5 :42 MICROALBUMIN: CREATININE RATIO Comments: PATIENT NOT FASTINGPERFORMED BY: [employer] [facility] [id number] ([id number]) AND (36373) Microalb/Creat Ratio 4.1 {mg/g_creat} (Normal) Range: 0.0-30.0 Microalbumin, Urine 3.5 ug/mL (Normal) Creatinine, Urine 84.7 mg/dL (Normal) [id number] URINALYSIS, W/ MICRO Comments: PATIENT NOT FASTINGPERFORMED BY: [employer] [facility] [id number] Information: [id number] SRC: ([id number]) Microscopic Examination See below: (Normal) Comments: Microscopic was indicated and was performed. Nitrite, Urine Negative (Normal) Urobilinogen,Semi-Qn 0.2 mg/dL (Normal) Range: 0.2-1.0 Bilirubin Negative (Normal) Occult Blood Negative (Normal) Ketones Negative (Normal) Glucose Negative (Normal) Protein Negative (Normal) WBC Esterase 2+ (Abnormal) Appearance Clear (Normal) Urine-Color Yellow (Normal) pH 5.5 (Normal) Range: 5.0-7.5 Specific [place] 1.019 (Normal) Range: 1.005-1.030 [id number] URINE WILMER CULTURE-IDENTIFICATN Comments: PATIENT NOT FASTINGPERFORMED BY: [employer] MediaArtes[facility] General HospitalVzubkf5084 [facility] [id number] ([id number]) Result 1 MUG (Normal) Comments: Mixed urogenital flora1,000 Colonies/mL Urine Culture,Comprehensive Final report (Normal) :16 Urinalysis, Office (55098) UA - LEUKOCYTE ESTERASE Small (Normal) UA - NITRITE Negative (Normal) URINE UROBILINGN OSMAN TIMED Normal mg/dL (Normal) UA - PROTEIN Negative mg/dL (Normal) UA - PH 5 (Abnormal) UA - BLOOD Negative (Normal) UA - SPECIFIC GRAVITY 1.025 (Normal) UA - KETONES Negative mg/dL (Normal) UA - BILIRUBIN Negative (Normal) UA - GLUCOSE Negative (Normal) :20 Urinalysis, Office (68063) UA - LEUKOCYTE ESTERASE Negative (Normal) UA - NITRITE Negative (Normal) URINE UROBILINGN OSMAN TIMED Normal mg/dL (Normal) UA - PROTEIN Negative mg/dL (Normal) UA - PH 5 (Abnormal) UA - BLOOD Negative (Normal) UA - SPECIFIC GRAVITY 1.010 (Normal) UA - KETONES Negative mg/dL (Normal) UA - BILIRUBIN Negative (Normal) UA - GLUCOSE Negative (Normal) 14-[id number]:09 Microscopic Examination Comments: PATIENT NOT FASTINGPERFORMED BY: [employer] [facility] [id number] Bacteria Few (Normal) Mucus Threads Present (Normal) Epithelial Cells (non renal) 0-10 {/hpf} (Normal) Range: 0 - 10 RBC 3-10 {/hpf} (Abnormal) Range: 0 - 2 WBC 11-30 {/hpf} (Abnormal) Range: 0 - 5 :09 URINE WILMER CULTURE-IDENTIFICATN Comments: PATIENT NOT FASTINGPERFORMED BY: [employer] MediaIn[facility] ElmerJqbymc[address]131 [facility] [id number] ([id number]) Antimicrobial MIHEAD (Normal) Comments: S = Susceptible; I = Intermediate; R = Resistant P = Positive; N = Negative MICS are expressed in micrograms per mL Antibiotic RSLT#1 RSLT#2 RS Susceptibility LT#3 RSLT#4Amoxicillin/Clavulanic Acid SAmpicillin SCefepime SCeftriaxone SCefuroxime SCephalothin ICiprofloxacin SErtapenem SGentamicin SImipenem SLevofloxacin SNitrofurantoin SPipera cillin STetracycline STobramycin STrimethoprim/Sulfa S Result 1 Escherichia coli Comments: Greater than 100,000 colony forming units per mL (Abnormal) Urine Final report Culture,Comprehensive (Abnormal) [id number] URINALYSIS ([id number]) Comments: PATIENT NOT FASTINGPERFORMED BY: [facility] World MediaArtesia General HospitalVnfpnn1744 [facility] [id number] Information: SRC:UC Microscopic Examination See below: (Normal) Comments: Microscopic was indicated and was performed. Nitrite, Urine Negative (Normal) Urobilinogen,Semi-Qn 0.2 mg/dL (Normal) Range: 0.2-1.0 Bilirubin Negative (Normal) Occult Blood 1+ (Abnormal) Ketones Negative (Normal) Glucose Negative (Normal) Protein Negative (Normal) WBC Esterase 2+ (Abnormal) Appearance Clear (Normal) Urine-Color Yellow (Normal) pH 7.0 (Normal) Range: 5.0-7.5 Specific [place] 1.007 (Normal) Range: 1.005-1.030 32-Peg-292387:29 Urinalysis, Office (34329) UA - LEUKOCYTE ESTERASE Small (Normal) UA - NITRITE Negative (Normal) URINE UROBILINGN OSMAN TIMED Normal mg/dL (Normal) UA - PROTEIN Negative mg/dL (Normal) UA - PH 7 (Normal) UA - BLOOD Non Hemolyzed Moderate (Normal) UA - SPECIFIC GRAVITY 1.015 (Normal) UA - KETONES Negative mg/dL (Normal) UA - BILIRUBIN Negative (Normal) UA - GLUCOSE Negative (Normal) 69-Ujg-840746:06 URINE WILMER CULTURE-IDENTIFICATN Comments: PATIENT NOT FASTINGPERFORMED BY: [facility] MediaInsp[facility] Center ElmerGbvfzr7977 [facility] [id number] Information: SRC:UC ([id number]) Result 1 MUG (Normal) Comments: Mixed urogenital flora1,000 Colonies/mL Urine Culture,Comprehensive Final report (Normal) [id number]:21 Urinalysis, Office (07118) UA - LEUKOCYTE ESTERASE Trace (Normal) UA - NITRITE Negative (Normal) URINE UROBILINGN OSMAN TIMED Normal mg/dL (Normal) UA - PROTEIN Negative mg/dL (Normal) UA - PH 7 (Normal) UA - BLOOD Negative (Normal) UA - SPECIFIC GRAVITY 1.020 (Normal) UA - KETONES Negative mg/dL (Normal) UA - BILIRUBIN Negative (Normal) UA - GLUCOSE Negative (Normal) 6-Hno-768042:05 Blood Glucose , Office (81655) Comments: 76 Blood Glucose , Office 76 (Normal) 5-Kvx-219301:44 Urinalysis, Office (55311) UA - LEUKOCYTE ESTERASE Small (Normal) UA - NITRITE Negative (Normal) URINE UROBILINGN OSMAN TIMED Normal mg/dL (Normal) UA - PROTEIN Negative mg/dL (Normal) UA - PH 5 (Abnormal) UA - BLOOD Negative (Normal) UA - SPECIFIC GRAVITY 1.030 (Abnormal) UA - KETONES Negative mg/dL (Normal) UA - BILIRUBIN Negative (Normal) UA - GLUCOSE Negative (Normal) 34-Mzn-354029:50 Blood Glucose , Office (19755) Blood Glucose , Office 102 (Normal) 26-Kkn-642373:32 Hemoglobin A1c Comments: Test performed at:[facility] Drzhjrcoyu3202 [facility]. [place], [place] [address] HGB A1C 7.1 % (Abnormal) Range: 4.2-6.3 53-Kys-800656:58 Blood Glucose , Office (68438) Blood Glucose , Office 99 (Normal) 36-Uwt-741372:49 ANTINUCLEAR ANTIBODIES DIRECT Comments: Test performed at:[facility] Djvbdpxnlt0415 [facility]. [place], [place] [address] TING-DIRECT Negative (Normal) Comments: Performed at: [facility] Lab[address] [id number] Director: Rasheed Ziegler PhD, Phone: [phone] Erythrocyte Sed Rate Comments: Test performed at:[facility] [address] [facility] [place] [address] SED RATE 10 mm/h (Normal) Range: 0-30 26-Pdx-939262:49 Rheumatoid Factor Comments: Test performed at:[facility] [address] [place], [place] [address] RHEUMATOID FAC < 10.0 {IU/mL} (Normal) 60-Lqb-461383:49 Sjogren's Antibodies A/B Comments: Test performed at:[facility] [address] [place] [address] Anti-SS-B < 0.2 {AI} (Normal) Range: 0.0-0.9 Anti-SS-A < 0.2 {AI} (Normal) Range: 0.0-0.9 72-Cff-81819:27 Pathology Report Comments: PERFORMED BY: For[facility]CYT [facility] Cyto Ikrzh51429 [facility] [id number] BY: [facility] Dermatopathology Kcdlibv[address] [id number] Information: [id number] See MATER Comments: Material submitted: .SHAVE BIOPSY R ARMClinician provided ICD-9:701.9 ; Unspecified hypertrophic and atrophic condition of skinClinical history: Note (Normal) .ETIOLOGY UNKNOWN SKIN TAGS FOR MARGINSDiagnosis:IRRITATED VERRUCA VULGARIS.10/05/2014 Electronically signed: .Priscilla Philip MD, DermatopathologistGross description: .RECEIVED IN FORMALIN LABELED DAYANARA MODESTO WITH NO DESIGNATION ONTHE CONTAINER AND DESIGNATED RIGHT ARM ON THE REQUISITION IS ATAN/YELLOW FRAGMENT OF SKIN MEASURING 0.3 X 0.3 X 0.1 CM. THEMARGIN IS MARKED WITH GREEN INK. IT IS BISECTED AND SUBMITTEDENTIRELY IN A SINGLE CASSETTE.LMS/JASPathologist provided ICD-9:078.10CPT .900034 :05 HgA1C , Office (27630) Comments: 7.0 HgA1C , Office 7.0 % (Normal) Range: 4.6 - 7.1 :05 Blood Glucose , Office (96378) Comments: 93 Blood Glucose , Office 93 (Normal) 36-Kvg-223666:25 HgA1C , Office (55453) HgA1C , Office 6.8 % (Normal) Range: 4.6 - 7.1 :19 HgA1C , Office (53383) HgA1C , Office 8.0 % (Abnormal) Range: 4.6 - 7.1 :19 Blood Glucose , Office (15749) Blood Glucose , Office 153 (Normal) Comments: non-fasting :58 HgA1C , Office (61373) HgA1C , Office 7.2 % (Abnormal) Range: 4.6 - 7.1 :34 URINE WILMER CULTURE-OSMAN COL Comments: PATIENT NOT FASTINGPERFORMED BY: [facility] ElmerTugcoc7036 [facility] [id number] Information: SRC:UR [id number] COUNT (95028) Result 1 MUG (Normal) Comments: Mixed urogenital flora25,000-50,000 colony forming units per mL Urine Final report (Normal) Culture,Comprehensive 39-Xtx-501890:40 Urinalysis, Office (21387) UA - LEUKOCYTE ESTERASE Negative (Normal) UA - NITRITE Negative (Normal) URINE UROBILINGN OSMAN TIMED Normal mg/dL (Normal) UA - PROTEIN Negative mg/dL (Normal) UA - BLOOD Negative (Normal) UA - SPECIFIC GRAVITY 1.025 (Normal) UA - PH 7 (Normal) UA - KETONES Negative mg/dL (Normal) UA - BILIRUBIN Negative (Normal) UA - GLUCOSE Negative (Normal) 10-Kmu-764525:21 Rapid Strep Test, Office (93584) Rapid Strep Test, Office Positive (Normal) 20-Lro-358692:21 Rapid Flu (01364 x 2) Influenza A Ag negative a and b (Normal) 27-Hhb-451030:06 URINE WILMER CULTURE-OSMAN COL Comments: PATIENT NOT FASTINGPERFORMED BY: [facility] Rrhecj70[address] [place] [id number] Information: SRC:UR [id number] COUNT (49943) Antimicrobial MIHEAD (Normal) Comments: S = Susceptible; I = Intermediate; R = Resistant P = Positive; N = Negative MICS are expressed in micrograms per mL Antibiotic RSLT#1 RSLT#2 Susceptibility RSLT#3 RSLT#4Amoxicillin/Clavulanic Acid SAmpicillin SCefepime SCeftriaxone SCefuroxime SCephalothin ICiprofloxacin SErtapenem SGentamicin SImipenem SLevofloxacin SNitrofurantoin S Piperacillin STetracycline STobramycin STrimethoprim/Sulfa S Result 1 Escherichia coli Comments: Greater than 100,000 colony forming units per mL (Normal) Urine Final report Culture,Comprehensive (Normal) 68-Rto-296162:46 Urinalysis, Office (67581) UA - BILIRUBIN Negative (Normal) UA - BLOOD Negative (Normal) UA - GLUCOSE Negative (Normal) UA - KETONES Moderate mg/dL (Normal) Comments: trace UA - LEUKOCYTE ESTERASE Large (Normal) UA - NITRITE Negative (Normal) UA - PH 7.5 (Normal) UA - PROTEIN Negative mg/dL (Normal) UA - SPECIFIC GRAVITY 1.025 (Normal) URINE UROBILINGN OSMAN TIMED Normal mg/dL (Normal) Comments: 1.0E.U/dL 1-Eop-829827:52 CBCD,SMEAR DIFF RED CELL MORPH SeeNote {NORMAL} (Normal) Comments: Result: NORM C+C PLT EST SeeNote (Normal) Comments: Result: ADEQUATE EOS 5 % (Normal) Range: 0-5 MONOCYTE 6 % (Normal) Range: 0-10 LYMPH 38 % (Normal) Range: 19-41 SEGS 51 % (Normal) Range: 47-70 CELLS COUNTED 100 (Normal) ABSOLUTE NEUT 5.5 3/uL (Normal) Range: 2.0-7.7 PLT 194 K/mm3 (Normal) Range: 150-450 RDW 12.8 % (Normal) Range: 11.6-14.6 MCHC 34.9 g/dL (Normal) Range: 32-36 MCH 31.0 pg (Normal) Range: 27.0-32.0 MCV 88.8 fL (Normal) Range: 81-99 HCT 41.4 % (Normal) Range: 37-47 HGB 14.4 g/dL (Normal) Range: 12.0-16.0 RBC 4.66 {M/mm3} (Normal) Range: 4.2-5.4 WBC 8.9 K/mm3 (Normal) Range: 4.4-11.0 3-Azm-666413:52 LIVER D BILI 0.11 mg/dL (Normal) Range: 0.00-0.30 ALT 45 U/L (Normal) Range: 12-78 T BILI 0.60 mg/dL (Normal) Range: 0.00-1.00 ALK P 67 U/L (Normal) Range: 50-136 AST 37 U/L (Normal) Range: 15-37 ALB 4.2 g/dL (Normal) Range: 3.4-5.0 T PROT 7.7 g/dL (Normal) Range: 6.4-8.2 1-Gkf-455852:14 LIVER/SPLEEN SCAN WITH FLOW Radiology Report See Note (Normal) Comments: CLINICAL:Female, 50 years old. Splenomegaly NUCLEAR MEDICINE LIVER SPLEEN SCAN TECHNIQUE:Following the intravenous administration of 4.8 mCi of Tc sulfur colloid,aliver spleen scan was performed with g brandon camera. COMPARISON:Prior comparison studies are not available for review at this time. FINDINGS:There is homogeneous radiopharmaceutical concentration of the liver withanormal sized liver. There a re no demonstrated parenchymal defects.Thereis no demonstrated colloid shift. The spleen is enlarged, measuring approximately 18 cm in verticaldimensionand demonstrates homogeneous radiopharmaceutical c oncentration without ademonstrated parenchymal defects. IMPRESSION:The spleen is enlarged on this exam, measuring approximately 18 cm invertical dimension, but uptake in the liver and spleen is normal. Dictated on 06/13/11 0800 by Rasheed Barrera MDTranscribed on 06/13/111732 by ITS IMPORTSign by Rasheed Barrera MD on 06/13/111733 Sign by: Hand MDRasheed :56 Blood Glucose , Office (59660) Blood Glucose , Office 135 (Normal) :56 HgA1C , Office (86690) HgA1C , Office 6.0 % (Normal) Range: 4.6 - 7.1 :14 Rapid Strep Test, Office (02285) Rapid Strep Test, Negative (Normal) Office :00 CULTURE, THROAT See Note (Normal) Comments: Normal throat alexsandra isolated. No beta-hemolyticstreptococcus isolated. :24 VIT D,25 94138 19.7 ng/mL (Abnormal) Range: 32.0-100.0 Comments: Recent studies consider the lower limit of 32.0 ng/mL to carmen threshold for optimal health.Inderjit COLEMAN. J Nutr. 2004;135(2):317-22.Performed at: [facility] Lab[address] Director: Mariel Deleon MD, Phone: [phone] :[phone] HGB A1C 5.4 % (Normal) Range: 4.0-6.3 Comments: The methodology of Hgb A1C has changed to [place] significant changes in patient results are expected. The reference range remains the same. :01 TSH 1.49 {uIU/mL} (Normal) Range: 0.358-3.74 :07 Blood Glucose , Office (29382) Blood Glucose , Office 108 (Normal) :42 HgA1C , Office (49910) HgA1C , Office 5.8 % (Normal) Range: 4.6 - 7.1 :42 Blood Glucose , Office (80769) Blood Glucose , Office 99 (Normal) :22 HgA1C , Office (29809) HgA1C , Office 5.8 % (Normal) Range: 4.6 - 7.1 :22 Blood Glucose , Office (36847) Blood Glucose , Office 93 (Normal) :02 BMP BUN 11 mg/dL (Normal) Range: 7-18 BUN/CRE 13.8 {RATIO} (Normal) Range: 10-20 CA 9.3 mg/dL (Normal) Range: 8.5-10.1 CL 103 mmol/L (Normal) Range: 98-107 CO2 29.0 mmol/L (Normal) Range: 21.0-32.0 CREAT,SERUM 0.8 mg/dL (Normal) Range: 0.6-1.0 EST GFR 81 mL/min (Normal) EST GFR - AA 98 mL/min (Normal) GAP 6 (Normal) Range: 5-15 K 4.2 mmol/L (Normal) Range: 3.5-5.1 NA 138 mmol/L (Normal) Range: 136-145 GLU 83 mg/dL (Normal) Range: 70-110 09-Apr-20090:00 LIVER ALB 4.1 g/dL (Normal) Range: 3.4-5.0 ALK P 85 U/L (Normal) Range: 50-136 ALT 61 U/L (Normal) Range: 30-65 AST 39 U/L (Abnormal) Range: 15-37 D BILI 0.13 mg/dL (Normal) Range: 0.00-0.30 T BILI 0.60 mg/dL (Normal) Range: 0.00-1.00 T PROT 7.4 g/dL (Normal) Range: 6.4-8.2 2-Cze-822484:42 URINALYSIS W/O MICRO (79688) UA - APPEARANCE clear (Normal) UA - BILIRUBIN Negative (Normal) UA - BLOOD Negative (Normal) UA - COLOR yellow (Normal) UA - GLUCOSE Negative (Normal) UA - KETONES Negative mg/dL (Normal) UA - LEUKOCYTE ESTERASE Negative (Normal) UA - NITRITE Negative (Normal) UA - PH 5.0 (Normal) UA - PROTEIN Negative mg/dL (Normal) UA - REDUCING SUBSTANCE neg (Normal) UA - SPECIFIC GRAVITY 1.025 (Normal) UA - URINE SEDIMENT neg (Normal) 44-Nki-827513:30 CH/GC DNA 12365 CHLAM DNA 90121 SeeNote (Normal) Comments: Result: Negative GC DNA PROBE SeeNote (Normal) Comments: Result: Negative No swab in specimen when received.Test valid for male urethral and female endocervicalspecimens only.Performed At: [address]Dublin, [place] [id number] : AVEL PREP See Note {PER_HPF} Comments: FUNGAL ELEMENTS NONE SEEN 30 (Normal) : WET PREP See Note (Normal) Comments: MOTILE TRICH NONE SEENWBC 5-10 30 69-Man-[id number]:39 Urinalysis, Office (71907) Comments: ABN signed PE UA - BILIRUBIN Negative (Normal) UA - BLOOD Negative (Normal) UA - GLUCOSE Negative (Normal) UA - KETONES Negative mg/dL (Normal) UA - LEUKOCYTE ESTERASE Negative (Normal) UA - NITRITE Negative (Normal) UA - PH 6.0 (Normal) UA - PROTEIN Negative mg/dL (Normal) UA - SPECIFIC GRAVITY 1.005 (Normal) URINE UROBILINGN OSMAN TIMED Normal mg/dL (Normal) :35 CBCD,SMEAR DIFF CELLS COUNTED 100 (Normal) EOS 1 % (Normal) Range: 0-5 HCT 39.3 % (Normal) Range: 37-47 HGB 13.4 g/dL (Normal) Range: 12.0-16.0 LYMPH 33 % (Normal) Range: 19-41 MCH 27.4 pg (Normal) Range: 27.0-32.0 MCHC 34.1 g/dL (Normal) Range: 32-36 MCV 80.3 fL (Abnormal) Range: 81-99 PLT 318 K/mm3 (Normal) Range: 150-450 PLT EST SeeNote (Normal) Comments: Result: ADEQUATE RBC 4.90 {M/mm3} (Normal) Range: 4.2-5.4 RDW 25.8 % (Abnormal) Range: 11.6-14.6 RED CELL MORPH SeeNote {NORMAL} (Normal) Comments: Result: NORM C&C SEGS 66 % (Normal) Range: 47-70 WBC 7.6 K/mm3 (Normal) Range: 4.4-11.0 :35 COMP METABOLIC A/G 1.2 {RATIO} (Normal) Range: 0.9-2.4 ALB 3.7 g/dL (Normal) Range: 3.4-5.0 ALK P 58 U/L (Normal) Range: 50-136 ALT 33 [iU]/L (Normal) Range: 30-65 AST 19 U/L (Normal) Range: 15-37 BUN 8 mg/dL (Normal) Range: 7-18 BUN/CRE 11.4 {RATIO} (Normal) Range: 10-20 CA 8.3 mg/dL (Abnormal) Range: 8.5-10.1 CL 102 mmol/L (Normal) Range: 98-107 CO2 28.3 mmol/L (Normal) Range: 22.0-29.0 CREAT,SERUM 0.7 mg/dL (Normal) Range: 0.6-1.0 GAP 8 (Normal) Range: 5-15 GLOB 3.2 g/dL (Normal) Range: 2.3-3.5 GLU 80 mg/dL (Normal) Range: 70-110 K 4.1 mmol/L (Normal) Range: 3.5-5.1 NA 138 mmol/L (Normal) Range: 136-145 T BILI 0.39 mg/dL (Normal) Range: 0.00-1.00 T PROT 6.9 g/dL (Normal) Range: 6.4-8.2 :35 LIPID CHOL 196 mg/dL (Normal) Comments: <200 mg/dL Desirable 200-240 mg/dL Borderline >240 mg/dL High Risk HDL 36 mg/dL (Normal) Comments: Reference Range HDL <40 mg/dL Low HDL Cholesterol HDL >or= 60 mg/dL High HDL Cholesterol LDL 135 mg/dL (Abnormal) Range: 0-130 TRIG 126 mg/dL (Normal) Comments: Serum Triglycerides Reference Interval Normal <150 mg/dL Borderline high 150 - 199 mg/dL High 200 - 499 mg/dL Very High > or = 500 mg/dL VLDL 25 mg/dL (Normal) Range: 5-40 :40 ANAEROBIC CULT See Note (Normal) Comments: #1- STUDIES AT [employer] HAVE CONFIRMED THE OBSERVATIONS OF OTHERS WHO HAVE DEMONSTRATED THAT PREVOTELLA, PORPHYROMONAS AND BACTEROIDES SPECIES OTHER THAN B.FRAGILIS GROUP ARE ROUTINELY ROBIN CEPTIBLE TO CEFOXITIN, CHLORAMPHENICOL, AND METRONIDAZOLE AND ARE USUALLY RESISTANT TO PENICILLIN. TESTING PERFORMED AT [facility]. ORIGINAL RE PORT ON FILE IN LAB CONTAINS ADDITIONAL TEST SITE INFORMATION. ANAEROBIC CULT TO REF LAB 2 ANAEROBIC ORGANISMS ISOLATED AND IDENTIFIED. ORGANISM 1: PREVOTELLA BIVIA-ORGANISM 2: FINEGOLDIA JOSÉ :40 CH/GC [id number] CHLAM DNA SeeNote (Normal) Comments: Result: Negative GC DNA PROBE SeeNote (Normal) Comments: Result: Negative Performed At: [facility] [place], [place] [id number] :40 CULTURE, URINE URINE CULTURE See Note (Normal) Comments: BELOW INFECTION LEVEL COLONY COUNT <1000 ORGANISM 1: COAG NEGATIVE STAPH :40 GENT CULT COMP GENT CULT COMP See Note (Normal) Comments: Normal vaginal alexsandra isolated. No yeast, Gardnerella,Neisseria or beta-hemolytic Streptococcus isolated. GRAM STAIN See Note (Normal) Comments: Very rare gram variable payal GRAM STAIN 1+ WHITE BLOOD CELLS RARE EPITHELIAL CELLS NO GRAM NEGATIVE DIPLOCOCCI :4 AVEL PREP See Note {PER_HPF} Comments: FUNGAL ELEMENTS NONE SEEN 0 (Normal) :4 WET PREP See Note (Normal) Comments: MOTILE TRICH RAREWBC 2-4 0 :04 Urinalysis, Office (65885) Comments: ABn signed UA - BILIRUBIN Negative (Normal) UA - BLOOD Negative (Normal) UA - GLUCOSE Negative (Normal) UA - KETONES Negative mg/dL (Normal) UA - LEUKOCYTE ESTERASE Small (Normal) UA - NITRITE Negative (Normal) UA - PH 5.0 (Normal) UA - PROTEIN Negative mg/dL (Normal) UA - SPECIFIC GRAVITY 1.010 (Normal) URINE UROBILINGN OSMAN TIMED 2 mg/dL (Normal) :10 CULTURE, URINE URINE CULTURE See Note {CFU/mL} (Normal) Comments: COLONY COUNT >100,000 ORGANISM 1: STREPTOCOCCUS AGALACTIAE (B) STREPTOCOCCUS AGALACTIAE (B): REACTION CEFAZOLIN $ <=8 S CLI NDAMYCIN, NON-EC $$ <=0.25 S ERYTHROMYCIN NON-EC $$ <=0.25 S LEVOFLOXACIN $$ <=1 S NITROFURANTOIN $ <= 32 S PENICILLIN G (STREP) $$ <=0.03 S TETRACYCLINE NON-EC $$ >=16 R VANCOMYCIN NON-EC $$ <=0.5 S 4-Wbw-219932:37 Urinalysis, Office (34746) UA - BILIRUBIN Negative (Normal) UA - BLOOD Non Hemolyzed Moderate (Normal) UA - GLUCOSE Negative (Normal) UA - KETONES Negative mg/dL (Normal) UA - LEUKOCYTE ESTERASE Moderate (Normal) UA - NITRITE Negative (Normal) UA - PH 7.0 (Normal) UA - PROTEIN Negative mg/dL (Normal) UA - SPECIFIC GRAVITY 1.010 (Normal) URINE UROBILINGN OSMAN TIMED Normal mg/dL (Normal) :00 CBCD,SMEAR DIFF Comments: COMMENTS: IN AM BAND 3 % (Normal) Range: 0-5 CELLS COUNTED 100 (Normal) EOS 1 % (Normal) Range: 0-5 HCT 30.0 % (Abnormal) Range: 37-47 HGB 9.9 g/dL (Abnormal) Range: 12.0-16.0 LYMPH 20 % (Normal) Range: 19-41 MCH 25.9 pg (Abnormal) Range: 27.0-32.0 MCHC 33.1 g/dL (Normal) Range: 32-36 MCV 78.2 fL (Abnormal) Range: 81-99 MONOCYTE 7 % (Normal) Range: 0-10 PLT 185 K/mm3 (Normal) Range: 150-450 PLT EST SeeNote (Normal) Comments: Result: ADEQUATE RBC 3.84 {M/mm3} (Abnormal) Range: 4.2-5.4 RDW 28.7 % (Abnormal) Range: 11.6-14.6 RED CELL MORPH SeeNote {NORMAL} (Normal) Comments: Result: NORM C&C SEGS 69 % (Normal) Range: 47-70 TOXIC GRAN 1+ (Normal) WBC 10.4 K/mm3 (Normal) Range: 4.4-11.0 :00 CULTURE, URINE Comments: HOLD IN OE UNTIL SPECIMEN COLLECTED? (Y/N)* N URINE CULTURE See Note (Normal) Comments: Culture exhibits no growth. 30-Vbf-992439:00 ROUTINE UA Comments: HOLD IN OE UNTIL SPECIMEN COLLECTED? (Y/N)* N BILIRUBIN URINE SeeNote (Normal) Comments: Result: NEGATIVE CLARITY CLEAR (Normal) COLOR YELLOW (Normal) GLUCOSE, UR SeeNote (Normal) Comments: Result: NEGATIVE KETONE UR SeeNote mg/dL (Normal) Comments: Result: NEGATIVE LEUK ESTERASE 1+ (Abnormal) NITRITE UR SeeNote (Normal) Comments: Result: NEGATIVE OCCULT BLOOD-UR 2+ (Abnormal) pH UR 6.5 (Normal) Range: 5.0-8.0 PROT DIPSTX SeeNote (Normal) Comments: Result: NEGATIVE SP.GR. DIPSTX 1.010 (Normal) Range: 1.002-1.030 UROBILI 0.2 EU/dl (Normal) Range: 0.2 - 1.0 :52 BMP Comments: COMMENTS: STATINDICATE CK '1', '2', '3', OR 'R' FOR RANDOM: 1 BUN 8 mg/dL (Normal) Range: 7-18 BUN/CRE 13.3 {RATIO} (Normal) Range: 10-20 CA 7.4 mg/dL (Abnormal) Range: 8.5-10.1 CL 103 mmol/L (Normal) Range: 98-107 CO2 24.5 mmol/L (Normal) Range: 22.0-29.0 CREAT,SERUM 0.6 mg/dL (Normal) Range: 0.6-1.0 GAP 8 (Normal) Range: 5-15 GLU 125 mg/dL (Abnormal) Range: 70-110 Comments: Fasting Glucose result from 110 to <126 mg/dL suggests IMPAIRED HOMEOSTASIS per A.D.A. criteria. K 4.2 mmol/L (Normal) Range: 3.5-5.1 NA 135 mmol/L (Abnormal) Range: 136-145 :52 CBC Comments: COMMENTS: STAT HCT 34.5 % (Abnormal) Range: 37-47 HGB 11.6 g/dL (Abnormal) Range: 12.0-16.0 MCH 26.2 pg (Abnormal) Range: 27.0-32.0 MCHC 33.7 g/dL (Normal) Range: 32-36 MCV 77.6 fL (Abnormal) Range: 81-99 PLT 219 K/mm3 (Normal) Range: 150-450 RBC 4.44 {M/mm3} (Normal) Range: 4.2-5.4 RDW 28.0 % (Abnormal) Range: 11.6-14.6 WBC 18.9 K/mm3 (Abnormal) Range: 4.4-11.0 :52 CPK TOTAL 107 U/L (Normal) Comments: COMMENTS: STATINDICATE CK '1', '2', '3', OR 'R' FOR RANDOM: 1 Range: 21-215 :52 CPKMB < 0.5 ng/mL (Normal) Comments: COMMENTS: STATINDICATE CK '1', '2', '3', OR 'R' FOR RANDOM: 1 Range: 0.0-5.0 Comments: CK-MB and RI Interpretation MB Relative Index Non-AMI <or= 5 NA Indeterminate > 5 <or= 4 AMI > 5 > 4 :52 MG 1.6 mg/dL (Normal) Comments: COMMENTS: STATINDICATE CK '1', '2', '3', OR 'R' FOR RANDOM: 1 Range: 1.5-2.2 :52 SMEAR COMMENT COMMENT (Normal) Comments: COMMENTS: STAT Comments: 3+ ANISOCYTOSIS :52 TROPONIN-I 0.04 ng/mL (Normal) Comments: COMMENTS: STATINDICATE CK '1', '2', '3', OR 'R' FOR RANDOM: 1 Comments: TROPONIN-I EXPECTED VALUES < 0.50 NEGATIVE 0.50 - 1.49 INDETERMINANT > OR = 1.50 SUGGEST MO :42 HYSTERECT P-HYST (Normal) Comments: OPERATION Hysterectomy, total abdominal, salpingo- oophorectomy, left PRE-OPERATIVE DIAGNOSIS Uterine mass POST-OPERATIVE DIAGNOSIS Same TISSUE SUBMITTED Uterus, left tube and ovary MICROSCOPIC DIAG NOSIS Uterus, left tube and ovary, hysterectomy with left salpingo-oophorectomy: Cervix - squamous metaplasia, chronic inflammation and nabothian cysts. Endometrium - proliferative endometr ium. Myometrium - extensive adenomyosis. - leiomyomas. Ovary - hemorrhagic corpus luteal cysts. Fallopian tube - no pathologic change. AM:quang 6/29/07 GROSS DESCRIPTIO N Received is one container designated uterus, left tube and ovary. The specimen consists of a uterus with attached cervix and a detached ovary with fallopian tube. The uterus with cervix measures 15 x 11 x 9 cm and weighs 538 gms. The serosal aspect is smooth and glistening with focal instrumentation calvin. The ectocervix is unremarkable and the cervical os is round in contour. The endocer vical canal measures 4 cm in length and contains nabothian cysts. The endometrial cavity is triangular in shape measuring 8 cm in length and 6 cm in greatest width. The myometrium ranges in thicknes s from 2.2 cm to 5.8 cm and contains multiple spherical rubbery pink-white nodules that on cut surface reveal a whorled appearance. These nodules are intramural in location and range in size from 0.2 to 2.3 cm in greatest dimension. The thickness portion of the myometrium is grossly consistent with adenomyosis. The ovary is white-cabrales and has a crinkled external surface and measures 4.5 x 3.5 x 2 cm. Serial sections of the ovary reveal multiple cysts ranging in size from 1 to 3 cm and containing from clear to bloody fluid. No tubo-ovarian adhesions are identified. The fallopian tube avni ures 4 cm in length and 0.7 cm in average diameter. A normal fimbriated end is present. Sections are submitted in 10 cassettes as follows: 1 - anterior cervix at 12:00, 2 - posterior cervix at 6:00, 3 & 4 - anterior uterine wall, 5-7 - posterior uterine wall, 8 - myometrial nodules, 9 & 1 0 - fallopian tube and ovary. / AM: 12/31/06 TC:1 REPORT SIGNED: NELDA HADLEY 01/01/07 ANTIBODY SCREEN NEGATIVE (Normal) Comments: COMMENTS: [facility] OR 12/31/06 :00 BLOOD TYPE PT A POSITIVE (Normal) Comments: COMMENTS: [facility] OR 12/31/06 :00 :00 CBCD Comments: COMMENTS: RESULTS TO DR. MONTOYA AND DR. EAST, [facility] OR 12/31/06 BAND 5 % (Normal) Range: 0-5 CELLS COUNTED 100 (Normal) LYMPH 19 % (Normal) Range: 19-41 MONOCYTE 6 % (Normal) Range: 0-10 MPV 10.8 fL (Normal) Range: 6.5-12.0 NRBC,LH FLAGGED 0 % (Normal) Range: 0-5 PLT 246 K/mm3 (Normal) Range: 150-450 PLT EST SeeNote (Normal) Comments: Result: ADEQUATE RED CELL MORPH SeeNote {NORMAL} (Normal) Comments: Result: NORM C&C SEGS 70 % (Normal) Range: 47-70 SMEAR COMMENT SCANNED (Normal) Comments: ON SLIDE REVIEW OBSERVED THE FOLLOWIIN+ POLYCHROMASIA2+ ANISOCYTOSIS1+ MICROCYTOSISRARE TEARDROP CELLS HCT 37.0 % (Normal) Range: 37-47 HGB 12.5 g/dL (Normal) Range: 12.0-16.0 MCH 26.2 pg (Abnormal) Range: 27.0-32.0 MCHC 33.9 g/dL (Normal) Range: 32-36 MCV 77.3 fL (Abnormal) Range: 81-99 RBC 4.79 {M/mm3} (Normal) Range: 4.2-5.4 RDW 28.1 % (Abnormal) Range: 11.6-14.6 WBC 9.8 K/mm3 (Normal) Range: 4.4-11.0 [id number] COMP METABOLIC Comments: COMMENTS: RESULTS TO DR. MONTOYA AND DR. EAST, PAT OR 12/31/06 A/G 1.1 {RATIO} (Normal) Range: 0.9-2.4 ALB 3.6 g/dL (Normal) Range: 3.4-5.0 ALK P 56 U/L (Normal) Range: 50-136 ALT 33 [iU]/L (Normal) Range: 30-65 AST 22 U/L (Normal) Range: 15-37 BUN 9 mg/dL (Normal) Range: 7-18 BUN/CRE 12.9 {RATIO} (Normal) Range: 10-20 CA 8.2 mg/dL (Abnormal) Range: 8.5-10.1 CL 105 mmol/L (Normal) Range: 98-107 CO2 23.8 mmol/L (Normal) Range: 22.0-29.0 CREAT,SERUM 0.7 mg/dL (Normal) Range: 0.6-1.0 GAP 10 (Normal) Range: 5-15 GLOB 3.2 g/dL (Normal) Range: 2.3-3.5 GLU 82 mg/dL (Normal) Range: 70-110 K 4.0 mmol/L (Normal) Range: 3.5-5.1 NA 139 mmol/L (Normal) Range: 136-145 T BILI 0.23 mg/dL (Normal) Range: 0.00-1.00 T PROT 6.8 g/dL (Normal) Range: 6.4-8.2 : LIPID Comments: COMMENTS: PAT OR 12/31/06 CHOL 155 mg/dL (Normal) Comments: <200 mg/dL Desirable 200-240 mg/dL Borderline >240 mg/dL High Risk HDL 36 mg/dL (Normal) Comments: Reference Range HDL <40 mg/dL Low HDL Cholesterol HDL >or= 60 mg/dL High HDL Cholesterol LDL 96 mg/dL (Normal) Range: 0-130 TRIG 117 mg/dL (Normal) Comments: Serum Triglycerides Reference Interval Normal <150 mg/dL Borderline high 150 - 199 mg/dL High 200 - 499 mg/dL Very High > or = 500 mg/dL VLDL 23 mg/dL (Normal) Range: 5-40 : LIVER Comments: COMMENTS: PAT OR 12/31/06 ALB 3.5 g/dL (Normal) Range: 3.4-5.0 ALK P 54 U/L (Normal) Range: 50-136 ALT 32 [iU]/L (Normal) Range: 30-65 AST 20 U/L (Normal) Range: 15-37 D BILI 0.07 mg/dL (Normal) Range: 0.00-0.30 T BILI 0.23 mg/dL (Normal) Range: 0.00-1.00 T PROT 6.8 g/dL (Normal) Range: 6.4-8.2 : ,SERUM Comments: COMMENTS: RESULTS TO DR. MONTOYA AND DR. EAST, HEIDI OR 12/31/06 HCGSQUAL SeeNote m[iU]/mL (Normal) Comments: Result: NEGATIVE PRO TIME Comments: COMMENTS: RESULTS TO DR. MONTOYA AND DR. EAST, HEIDI OR 12/31/06 INR 1.0 (Normal) PROTIME 12.1 s (Normal) Range: 10.6-13.2 [id number] PTT 23.5 s (Abnormal) Comments: COMMENTS: RESULTS TO DR. MONTOYA AND DR. EAST, PAT OR 12/31/06 Range: 24.6-36.6 :25 ANAEROBIC CULT See Note (Normal) Comments: AMOUNT GROWTH GROWTH ORGANISM 1: PREVOTELLA LEBRONIA- :25 CH/GC DNA 21945 CHLAM DNA [id number] SeeNote (Normal) Comments: Result: Negative GC DNA PROBE SeeNote (Normal) Comments: Result: Negative Test valid for male urethral and female endocervicalspecimens only.Performed At: [facility], [place] [id number] :25 GENT CULT COMP GENT CULT COMP See Note (Normal) Comments: NEISSERIA GONORRHOEAE is NOT isolated. AMOUNT GROWTH 3+ ORGANISM 1: STREPTOCOCCUS AGALACTIAE (B) STREPTOCOCCUS AGALACTIAE (B): REACTION CEFAZOLIN $ <=8 S CLINDAMYCIN, NON-EC $$ <=0.25 S ERYTHROMYCIN NON-EC $$ <=0.25 S LEVOFLOXACIN $$ <=1 S NITROFURAN TOIN $ <=32 S PENICILLIN G (STREP) $$ <=0.03 S TETRACYCLINE NON-EC $$ >=16 R VANCOMYCIN NON-EC $$ <=0.5 S GRAM STAIN See Note (Normal) Comments: GRAM STAIN 1+ EPITHELIAL CELLS 2+ WHITE BLOOD CELLS 2+ GRAM NEGATIVE COCCOBACILLUS 2+ GRAM POSITIVE COCCI IN CHAINS NO GRAM NEGATIVE DIPLOCOCCI :25 AVEL PREP See Note {PER_HPF} Comments: FUNGAL ELEMENTS NONE SEEN (Normal) :25 WET PREP See Note (Normal) Comments: MOTILE TRICH 1+WBC 1 :00 CULTURE, URINE URINE CULTURE See Note {CFU/mL} (Normal) Comments: COLONY COUNT >100,000 ORGANISM 1: STREPTOCOCCUS AGALACTIAE (B) STREPTOCOCCUS AGALACTIAE (B): REACTION CEFAZOLIN $ <=8 S CLI NDAMYCIN, NON-EC $$ <=0.25 S ERYTHROMYCIN NON-EC $$ <=0.25 S LEVOFLOXACIN $$ <=1 S NITROFURANTOIN $ <= 32 S PENICILLIN G (STREP) $$ <=0.03 S TETRACYCLINE NON-EC $$ >=16 R VANCOMYCIN NON-EC $$ <=0.5 S [id number] Urinalysis, Office ([id number]) Comments: ABN signed UA - BILIRUBIN Negative (Normal) UA - BLOOD Hemolyzed Trace (Normal) UA - GLUCOSE Negative (Normal) UA - KETONES Negative mg/dL (Normal) UA - LEUKOCYTE ESTERASE Moderate (Normal) UA - NITRITE Negative (Normal) UA - PH 6.5 (Normal) UA - PROTEIN Negative mg/dL (Normal) UA - SPECIFIC GRAVITY 1.010 (Normal) URINE UROBILINGN OSMAN TIMED Normal mg/dL (Normal) 37-Doq-20028:00 ASPIRATION P-ASPS (Normal) Comments: OPERATION FNA right thyroid PRE-OPERATIVE DIAGNOSIS Right thyroid nodule TISSUE SUBMITTED Right thyroid FNA slides x 9 DIAGNOSIS (CYTOLOGY) Right thyroid nodule, FNA (smears): Negative for malignan t cells. See Cytology Study and Comment. SJ: 12/17/06 COMMENT The differential diagnosis includes chronic lymphocytic thyroiditis and colloid nodule. Correlation with clinical and radiolog ic study and appropriate follow up are necessary. CYTOLOGY STUDY The specimen consists of follicular cells, diluted colloid and lymphocytes. CYTOLOGY GROSS Received are 9 smears designated right th yroid nodule. Submitted for staining. / : 12/16/06 TC:5 REPORT SIGNED: LAKISHA GALAN 12/17/06:38 B12/FOLATES 810 FOLATES,S 2013 16.5 ng/mL (Normal) Comments: Indeterminate: 3.4 - 5.4 Deficient: <3.4 VIT B12 1503 347 pg/mL (Normal) Range: 211-911 :38 CBCD,SMEAR DIFF ANISO 1+ (Normal) BAND 1 % (Normal) Range: 0-5 CELLS COUNTED 100 (Normal) EOS 2 % (Normal) Range: 0-5 HCT 30.1 % (Abnormal) Range: 37-47 HGB 9.8 g/dL (Abnormal) Range: 12.0-16.0 HYPOCHROMASIA 2+ (Normal) LYMPH 34 % (Normal) Range: 19-41 MCH 22.7 pg (Abnormal) Range: 27.0-32.0 MCHC 32.4 g/dL (Normal) Range: 32-36 MCV 70.1 fL (Abnormal) Range: 81-99 MONOCYTE 3 % (Normal) Range: 0-10 PLT 325 K/mm3 (Normal) Range: 150-450 PLT EST SeeNote (Normal) Comments: Result: ADEQUATE RBC 4.30 {M/mm3} (Normal) Range: 4.2-5.4 RDW 16.5 % (Abnormal) Range: 11.6-14.6 SEGS 60 % (Normal) Range: 47-70 WBC 7.6 K/mm3 (Normal) Range: 4.4-11.0 :38 FERRITIN 3 ng/mL (Normal) Range: 3-244 :38 HAPTOGLOB 1628 137 mg/dL (Normal) Range: 34-200 Comments: Performed At: [address] [id number] :38 IRON+TIBC IRON SATURATION 4.0 % (Abnormal) Range: 15.0-55.0 IRON, SERUM 19 ug/dL (Abnormal) Range: 35-150 TIBC 481 ug/dL (Abnormal) Range: 250-450 :38 LDH 205 U/L (Abnormal) Range: 100-190 :38 RETIC 1.19 % (Normal) Range: 0.5-1.5 :55 GLU GTT-2 HOUR 110 mg/dL (Normal) Comments: 2HR GTT GLU 2 HR GLU GTT-2 HOUR from [id number]. Range: 70-120 :55 GLU GTT-1 HOUR 162 mg/dL (Normal) Comments: 2HR GTT GLU 1 HR GLU GTT-1 HOUR from [id number]. Range: 120-170 :28 GLU GTT-30 min. 175 mg/dL (Abnormal) Comments: 2HR GTT GLU 1/2 HR GLU GTT-30 min. from [id number]. Range: 110-170 :46 CBCD,SMEAR DIFF ANISO 1+ (Normal) BAND 2 % (Normal) Range: 0-5 CELLS COUNTED 100 (Normal) HCT 29.4 % (Abnormal) Range: 37-47 HGB 9.6 g/dL (Abnormal) Range: 12.0-16.0 HYPOCHROMASIA 1+ (Normal) LYMPH 38 % (Normal) Range: 19-41 MCH 23.0 pg (Abnormal) Range: 27.0-32.0 MCHC 32.5 g/dL (Normal) Range: 32-36 MCV 70.7 fL (Abnormal) Range: 81-99 MONOCYTE 6 % (Normal) Range: 0-10 PLT 355 K/mm3 (Normal) Range: 150-450 PLT EST SeeNote (Normal) Comments: Result: ADEQUATE RBC 4.16 {M/mm3} (Abnormal) Range: 4.2-5.4 RDW 17.0 % (Abnormal) Range: 11.6-14.6 SEGS 54 % (Normal) Range: 47-70 WBC 7.3 K/mm3 (Normal) Range: 4.4-11.0 :46 COMP METABOLIC A/G 1.2 {RATIO} (Normal) Range: 0.9-2.4 ALB 3.8 g/dL (Normal) Range: 3.4-5.0 ALK P 57 U/L (Normal) Range: 50-136 ALT 39 [iU]/L (Normal) Range: 30-65 AST 31 U/L (Normal) Range: 15-37 BUN 14 mg/dL (Normal) Range: 7-18 BUN/CRE 17.5 {RATIO} (Normal) Range: 10-20 CA 8.6 mg/dL (Normal) Range: 8.5-10.1 CL 102 mmol/L (Normal) Range: 98-107 CO2 28.3 mmol/L (Normal) Range: 22.0-29.0 CREAT,SERUM 0.8 mg/dL (Normal) Range: 0.6-1.0 GAP 6 (Normal) Range: 5-15 GLOB 3.1 g/dL (Normal) Range: 2.3-3.5 GLU 88 mg/dL (Normal) Range: 70-110 K 3.9 mmol/L (Normal) Range: 3.5-5.1 NA 136 mmol/L (Normal) Range: 136-145 T BILI 0.48 mg/dL (Normal) Range: 0.00-1.00 T PROT 6.9 g/dL (Normal) Range: 6.4-8.2 :46 CULTURE, URINE URINE CULTURE See Note {CFU/mL} Comments: COLONY COUNT 50,000- 80,000 ORGANISM 1: MIXED GRAM POSITIVE ORGANISMS (Normal) 03-Tct-[id number]:46 GLU GTT-FASTING 88 mg/dL (Normal) Comments: 2HR GTT FASTING GLU GTT-FASTING from [id number]. Range: 70-110 Comments: GLUCOSE TOLERANCE TEST Reference Interval Non- Adults Fasting 70 - 110 30 minutes 110 - 170 1 hour 120 - 170 2 hour 70 - 120 3 hour 70 - 110 4 hour 70 - 110 5 hour 70 - 110 15-Oqn-[id number]:46 LIPID CHOL 216 mg/dL (Abnormal) Comments: <200 mg/dL Desirable 200-240 mg/dL Borderline >240 mg/dL High Risk HDL 37 mg/dL (Normal) Comments: Reference Range HDL <40 mg/dL Low HDL Cholesterol HDL >or= 60 mg/dL High HDL Cholesterol LDL 162 mg/dL (Abnormal) Range: 0-130 TRIG 87 mg/dL (Normal) Comments: Serum Triglycerides Reference Interval Normal <150 mg/dL Borderline high 150 - 199 mg/dL High 200 - 499 mg/dL Very High > or = 500 mg/dL VLDL 17 mg/dL (Normal) Range: 5-40 :46 MICROALBUMIN,UR 9.7 mg/L (Normal) :46 ROUTINE UA BILIRUBIN URINE SeeNote (Normal) Comments: Result: NEGATIVE CLARITY CLEAR (Normal) COLOR YELLOW (Normal) GLUCOSE, UR SeeNote (Normal) Comments: Result: NEGATIVE KETONE UR TRACE mg/dL (Abnormal) LEUK ESTERASE TRACE (Abnormal) NITRITE UR SeeNote (Normal) Comments: Result: NEGATIVE OCCULT BLOOD-UR SeeNote (Normal) Comments: Result: NEGATIVE pH UR 6.0 (Normal) Range: 5.0-8.0 PROT DIPSTX SeeNote (Normal) Comments: Result: NEGATIVE SP.GR. DIPSTX 1.025 (Normal) Range: 1.002-1.030 UROBILI 0.2 EU/dl (Normal) Range: 0.2 - 1.0 [id number] TSH 1.50 {uIU/mL} (Normal) Range: 0.34-4.82 :05 PELVIC (NON-PREG) (HP) Radiology Report See Note (Normal) Comments: Exam Number: [id number] THYROID ULTRASOUND HISTORYThyroid nodule. High resolution real time linear images were obtained. The right lobeof the thyroid is enlarged measuring 5.2 x 2.1 x 2.2 cm . Within th eright thyroid lobe is a large isoechoic mass measuring 2.9 x 1.9 x 2.1cm. The left lobe of the thyroid is normal in size measuring 3.5 x1.4 x 1.1 cm. There is a small hypoechoic nodule in the mid-lef tthyroid lobe. This measures 3 x 2 x 2 mm. The isthmus measures 3 mmin size which is normal. IMPRESSIONThe right lobe of the thyroid is significantly enlarged and there is alarge nodule within it. Th is is a dominant mass and surgicalevaluation is recommended. PELVIC ULTRASOUND HISTORYAbnormal menstrual bleeding. Standard transabdominal study was performed through a distendedurinary bladder. High r esolution real time sector images wereobtained. The uterus is enlarged measuring 15.1 x 9.1 x 10.2 cm. Theuterus is diffusely inhomogeneous. There is a suggestion of a largemass centrally within the uterus. The area of concern measures 10.2 x8.2 x 7.6 cm. This is likely to represent a large uterine fibroid. Other neoplasia of uterine origin would be less likely. Theendometrium measures 3 mm whic h is normal. The ovaries are normal insize. The right ovary measures 2.9 x 2 x 2 cm. The left ovarymeasures 2.3 x 1.8 x 2.3 cm. There is no fluid in the cul-de-sac. IMPRESSION1. The uterus is signi ficantly enlarged. There is an apparentcentral mass within the uterus suspicious for a very large fibroid. 2. There is a report available from an ultrasound performed 2002. At that time, th e uterus measured 14.8 x 6 x 7.7 cm. Theuterus therefore has increased in size since the previous examination.The older images are not available for review. Reported By: MELI YE M.D. 60-Gse-[id number]:05 THYROID () Radiology Report See Note (Normal) Comments: Exam Number: [id number] THYROID ULTRASOUND HISTORYThyroid nodule. High resolution real time linear images were obtained. The right lobeof the thyroid is enlarged measuring 5.2 x 2.1 x 2.2 cm . Within th eright thyroid lobe is a large isoechoic mass measuring 2.9 x 1.9 x 2.1cm. The left lobe of the thyroid is normal in size measuring 3.5 x1.4 x 1.1 cm. There is a small hypoechoic nodule in the mid-lef tthyroid lobe. This measures 3 x 2 x 2 mm. The isthmus measures 3 mmin size which is normal. IMPRESSIONThe right lobe of the thyroid is significantly enlarged and there is alarge nodule within it. Th is is a dominant mass and surgicalevaluation is recommended. PELVIC ULTRASOUND HISTORYAbnormal menstrual bleeding. Standard transabdominal study was performed through a distendedurinary bladder. High r esolution real time sector images wereobtained. The uterus is enlarged measuring 15.1 x 9.1 x 10.2 cm. Theuterus is diffusely inhomogeneous. There is a suggestion of a largemass centrally within the uterus. The area of concern measures 10.2 x8.2 x 7.6 cm. This is likely to represent a large uterine fibroid. Other neoplasia of uterine origin would be less likely. Theendometrium measures 3 mm whic h is normal. The ovaries are normal insize. The right ovary measures 2.9 x 2 x 2 cm. The left ovarymeasures 2.3 x 1.8 x 2.3 cm. There is no fluid in the cul-de-sac. IMPRESSION1. The uterus is signi ficantly enlarged. There is an apparentcentral mass within the uterus suspicious for a very large fibroid. 2. There is a report available from an ultrasound performed 2002. At that time, th e uterus measured 14.8 x 6 x 7.7 cm. Theuterus therefore has increased in size since the previous examination.The older images are not available for review. Reported By: MELI YE M.D. [id number]-[id number]:15 Urinalysis, Office ([id number]) Comments: done-jjp UA - BILIRUBIN Negative (Normal) UA - BLOOD Negative (Normal) UA - GLUCOSE Negative (Normal) UA - KETONES Negative mg/dL (Normal) UA - LEUKOCYTE ESTERASE Negative (Normal) UA - NITRITE Negative (Normal) UA - PH 5.0 (Normal) UA - PROTEIN Negative mg/dL (Normal) UA - SPECIFIC GRAVITY 1.000 (Normal) URINE UROBILINGN OSMAN TIMED Normal mg/dL (Normal) 20-[id number]:45 CULTURE, URINE URINE CULTURE See Note {CFU/mL} (Normal) Comments: COLONY COUNT 1000-10,000 ORGANISM 1: MIXED GRAM POSITIVE ORGANISMS Plan of Care Name Dates Details Instructions BMI 30.0-30.9,adult : Follow up in 4 months Indication: BMI 30.0-30.9,adult Diabetes mellitus, controlled : Eprescribed prescriptions (G8553) Indication: Diabetes mellitus, controlled Pelvic mass : Follow up in 3 months Indication: Pelvic mass Diabetes mellitus, controlled : Eprescribed prescriptions (G8553) Indication: Diabetes mellitus, controlled Postmenopausal (Renamed from Postmenopausal status) : Follow up in 3 months Indication: Postmenopausal (Renamed from Postmenopausal status) Diabetes mellitus, controlled : Eprescribed prescriptions (G8553) Indication: Diabetes mellitus, controlled BMI 30.0-30.9,adult : Follow up in 3 months Indication: BMI 30.0-30.9,adult BMI 30.0-30.9,adult : Eprescribed prescriptions (G8553) Indication: BMI 30.0-30.9,adult Papillary carcinoma of thyroid : Follow up in 3 months Indication: Papillary carcinoma of thyroid DEFICIENCY, VITAMIN D NOS : Reviewed Lab Indication: DEFICIENCY, VITAMIN D NOS Diabetes mellitus, controlled : Reviewed Lab Indication: Diabetes mellitus, controlled Hypercholesteremia : Reviewed Lab Indication: Hypercholesteremia Diabetes mellitus, controlled : Eprescribed prescriptions (G8553) Indication: Diabetes mellitus, controlled Former smoker : Follow up in 3 months Indication: Former smoker Hypercholesteremia : Follow up in 1 month or before returning to work for [employer] Indication: Hypercholesteremia Kidney stone on right side : Eprescribed prescriptions (G8553) Indication: Kidney stone on right side Preop examination : Eprescribed prescriptions (G8553) Indication: Preop examination Hypertension : Reviewed Lab Indication: Hypertension Diabetes mellitus, controlled : Reviewed Lab Indication: Diabetes mellitus, controlled Hypertension : Eprescribed prescriptions (G8553) Indication: Hypertension Ovarian cyst : Follow up if no improvement or if symptoms worsen Indication: Ovarian cyst Nonsmoker : Follow up in 3 months get labs 1 week before visit Indication: Nonsmoker Shoulder pain, right : Follow up in 3 months Indication: Shoulder pain, right Uncontrolled diabetes mellitus type 2 without complications : Eprescribed prescriptions (G8553) Indication: Uncontrolled diabetes mellitus type 2 without complications DEFICIENCY, VITAMIN D NOS : Follow up in 3 months Indication: DEFICIENCY, VITAMIN D NOS Encounter for screening mammogram for breast cancer (Renamed from Encounter for screening mammogram for malignant neoplasm of breast) : Follow up if no improvement or if symptoms worsen Indication: Encounter for screening mammogram for breast cancer (Renamed from Encounter for screening mammogram for malignant neoplasm of breast) Abdominal pain : Follow up - Make appt after diagnostic tests Indication: Abdominal pain Leukocytosis : Follow up - Make appt after diagnostic tests Indication: Leukocytosis Papillary carcinoma of thyroid : Follow up in 3 months for Gen Med, get labs done fasting about 4 -7 days before Indication: Papillary carcinoma of thyroid DEFICIENCY, VITAMIN D NOS : Follow up in 3 months Indication: DEFICIENCY, VITAMIN D NOS Uncontrolled diabetes mellitus type 2 without complications : Follow up in 3 months Indication: Uncontrolled diabetes mellitus type 2 without complications Cutaneous skin tags : Follow up if no improvement or if symptoms worsen Indication: Cutaneous skin tags Cutaneous skin tags : Silver Nitrate Indication: Cutaneous skin tags Cutaneous skin tags : Follow up as needed Indication: Cutaneous skin tags Cutaneous skin tags : skin tags Indication: Cutaneous skin tags Uncontrolled diabetes mellitus type 2 without complications : Follow up in 3 months Indication: Uncontrolled diabetes mellitus type 2 without complications Foot pain, bilateral : Follow up in 3 months Indication: Foot pain, bilateral Uncontrolled diabetes mellitus type 2 without complications : *Diabetes Education Indication: Uncontrolled diabetes mellitus type 2 without complications Uncontrolled diabetes mellitus type 2 without complications : Diet, Exercise, and Wt loss Indication: Uncontrolled diabetes mellitus type 2 without complications Uncontrolled diabetes mellitus type 2 without complications : Referral for Diabetic Education Indication: Uncontrolled diabetes mellitus type 2 without complications GERD (gastroesophageal reflux disease) : Follow up in 3 months Indication: GERD (gastroesophageal reflux disease) Uncontrolled diabetes mellitus type 2 without complications : Reviewed Lab Indication: Uncontrolled diabetes mellitus type 2 without complications DEFICIENCY, VITAMIN D NOS : Follow up in Sept Indication: DEFICIENCY, VITAMIN D NOS Uncontrolled diabetes mellitus type 2 without complications : Follow up in 6 weeks Indication: Uncontrolled diabetes mellitus type 2 without complications Uncontrolled diabetes mellitus type 2 without complications : Diabetes and Exercise: Preventing Low Blood Sugar: blood sugar Indication: Uncontrolled diabetes mellitus type 2 without complications Uncontrolled diabetes mellitus type 2 without complications : Eprescribed prescriptions (G8553) Indication: Uncontrolled diabetes mellitus type 2 without complications Uncontrolled diabetes mellitus type 2 without complications : Diet, Exercise, and Wt loss Indication: Uncontrolled diabetes mellitus type 2 without complications Uncontrolled diabetes mellitus type 2 without complications : *Diabetes Education Indication: Uncontrolled diabetes mellitus type 2 without complications Uncontrolled diabetes mellitus type 2 without complications : Follow up in 3 months Indication: Uncontrolled diabetes mellitus type 2 without complications Fatty liver : Diet, Exercise, and Wt loss Indication: Fatty liver GERD (gastroesophageal reflux disease) : GERD Education Indication: GERD (gastroesophageal reflux disease) Hypertension : HTN/CAD Red Flags Indication: Hypertension Papillary carcinoma of thyroid : Follow up in 2 weeks Indication: Papillary carcinoma of thyroid Dysuria : Follow up in 3 months Indication: Dysuria Dysuria : follow up for recheck urine 1 week after complete antibiotic Indication: Dysuria Dysuria : *UTI treatment Indication: Dysuria Dysuria : Water in diet, brief version Indication: Dysuria Bleeding gums : Follow up - Make appt after diagnostic tests Indication: Bleeding gums Thyroid nodule : Follow up in 2 weeks Indication: Thyroid nodule Splenomegaly : Reviewed Lab Indication: Splenomegaly Splenomegaly : Reviewed Diagnostic Tests Indication: Splenomegaly Fatty liver : Follow up in 3 months Indication: Fatty liver DEFICIENCY, VITAMIN D NOS : Reviewed Lab: Vit D 42 Indication: DEFICIENCY, VITAMIN D NOS Obesity : Follow up in 1 month Indication: Obesity Impaired fasting glucose : FOLLOW UP IN 4 WEEKS with [facility] to go over BS diary, diet etc Indication: Impaired fasting glucose Abnormal glucose tolerance test : FOLLOW UP IN 1 WEEK mec for meter instruction, begin metformin, etc Indication: Abnormal glucose tolerance test Hypercholesteremia : CHOLESTEROL MGMT. Indication: Hypercholesteremia Hypercholesteremia : *Cholesterol - Nonprescription Treatment Indication: Hypercholesteremia Hypercholesteremia : *Cholesterol - Medication Side Effects Indication: Hypercholesteremia Other specified viral infection, in conditions classified elsewhere and of unspecified site : *URI Symptoms Indication: Other specified viral infection, in conditions classified elsewhere and of unspecified site Other specified viral infection, in conditions classified elsewhere and of unspecified site : *URI Treatment Indication: Other specified viral infection, in conditions classified elsewhere and of unspecified site Thyroid nodule : FOLLOW UP IN 3 MONTHS Indication: Thyroid nodule Sciatica : Reviewed Diagnostic Tests: xrays rev from ann Indication: Sciatica Abnormal glucose tolerance test : Diet, Exercise, and Wt loss Indication: Abnormal glucose tolerance test Abnormal glucose tolerance test : *Diabetes Education Indication: Abnormal glucose tolerance test Hypercholesteremia : Diet, Exercise, and Wt loss Indication: Hypercholesteremia Hypercholesteremia : Diet, Exercise, and Wt loss Indication: Hypercholesteremia Muscle spasm : FOLLOW UP IN 1 MONTH Indication: Muscle spasm Muscle spasm : PT - exercises Indication: Muscle spasm Muscle spasm : Continue Current Prescription(s) Indication: Muscle spasm Low HDL (under 40) : Diet and Exercise Indication: Low HDL (under 40) Hypercholesteremia : Diet and Exercise Indication: Hypercholesteremia Depression : Antidepressant Usage Indication: Depression Well woman exam : Self Breast Exam Education Indication: Well woman exam Well woman exam : Pap/Pelvic/Bimanual/Breast Exam was done. Indication: Well woman exam Well woman exam : Well Female Maintenance (KF) Indication: Well woman exam Hypercholesteremia : Diet and Exercise Indication: Hypercholesteremia Urinary frequency : FOLLOW UP - MAKE APPT AFTER DIAGNOSTIC TESTS Indication: Urinary frequency Planned Observations LIPID PANEL ([id number])Indication: Hypertension On: :26 Request CBC & PLATELETS (AUTO) ([id number])Indication: Hypertension On: :26 Request CALCIFEDIOL ([id number])Indication: Hypertension On: :26 Request METABOLIC PANEL, COMPREHENSIVE ([id number])Indication: Hypertension On: 13-Apr-20188:25 Request HGB A1C ([id number])Indication: Diabetes mellitus, controlled On: 16-Hsz-099630:33 Request CBC, Platelets & Auto Diff ([id number])Indication: Hypertension On: 18-Jan-2018 Request Lipid Panel ([id number])Indication: Hypertension On: 18-Jan-2018 Request Metabolic Panel, Comprehensive ([id number])Indication: Hypertension On: 18-Jan-2018 Request Metabolic Panel, Comprehensive ([id number])Indication: Diabetes mellitus, controlled On: 79-Hab-555154:28 Request HGB A1C ([id number])Indication: Diabetes mellitus, controlled On: 67-Reg-302651:28 Request TSH ([id number])Indication: Diabetes mellitus, controlled On: 85-Jvs-576112:50 Request Comments: mar 2017 URINALYSIS W MICROSCOPY ([id number])Indication: Flank pain On: :09 Request URINE WILMER CULTURE-OSMAN COL COUNT ([id number])Indication: Flank pain On: 11-Sep-20169:08 Request CALCIFEDIOL ([id number])Indication: DEFICIENCY, VITAMIN D NOS On: :39 Request Comments: to be done December 2016 LIPID PANEL ([id number])Indication: Hypercholesteremia On: :38 Request Comments: print to be done prior to next visit URINALYSIS, W/ MICRO ([id number])Indication: Kidney stone on right side On: :36 Request HGB A1C (22857)Indication: Hypercholesteremia On: :49 Request Lipid Panel ([id number])Indication: Diabetes mellitus, controlled On: :49 Request Metabolic Panel, Comprehensive ([id number])Indication: Diabetes mellitus, controlled On: :48 Request TSH ([id number])Indication: Diabetes mellitus, controlled On: :48 Request CBC, Platelets & Auto Diff ([id number])Indication: Diabetes mellitus, controlled On: :48 Request HGB A1C ([id number])Indication: Uncontrolled diabetes mellitus type 2 without complications On: :46 Request CALCIFEDIOL ([id number])Indication: Uncontrolled diabetes mellitus type 2 without complications On: :46 Request TSH ([id number])Indication: Uncontrolled diabetes mellitus type 2 without complications On: :46 Request CBC, Platelets & Auto Diff ([id number])Indication: Uncontrolled diabetes mellitus type 2 without complications On: :46 Request Lipid Panel ([id number])Indication: Uncontrolled diabetes mellitus type 2 without complications On: :46 Request Metabolic Panel, Comprehensive ([id number])Indication: Uncontrolled diabetes mellitus type 2 without complications On: :46 Request Metabolic Panel, Comprehensive ([id number])Indication: Kidney stone on right side On: :44 Request PT (PROTHROMBIN TIME) ([id number])Indication: Preop examination On: :20 Request CBC, Platelets & Auto Diff ([id number])Indication: Preop examination On: :20 Request CBC, Platelets & Auto Diff ([id number])Indication: Preop examination On: :19 Request Metabolic Panel, Comprehensive ([id number])Indication: Preop examination On: :19 Request Metabolic Panel, Basic ([id number])Indication: Flank pain On: 70-Owf-900886:43 Request Hemoglobin Glyclated (HGB A1C) ([id number])Indication: Uncontrolled diabetes mellitus type 2 without complications On: 1-Lvy-324058:04 Request CREATININE CLEARANCE ([id number])Indication: Abdominal pain, acute, right upper quadrant On: 12-Prx-742645:54 Request Comments: STAT Hemoglobin Glyclated (HGB A1C) ([id number])Indication: Uncontrolled diabetes mellitus type 2 without complications On: 60-Vqf-807508:25 Request HEPATIC FUNCTION PANEL ([id number])Indication: Hypercholesteremia On: 17-Est-893682:37 Request Comments: repeat November fasting TSH (THYROID STIMULATING HORMONE) ([id number])Indication: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 Visit On: 12-Jun-2016 7:06 Encounter Reason: Nurse procedure visit - The symptoms have been associated with other (UA, no sx).Encounter Diagnosis: Urinary tract infection, site not specified End: 13-Jun-2016 10:05 [facility] Office Visit On: 03-Jun-2016 7:31 Encounter Reason: Pre-Op Visit - The procedure scheduled is a right shulder arthroscopy on unknown. The surgeon for the procedure will be Dr Erlin Self., [ADDITIONAL REASON] Cold Symptoms - Symptoms include nasal congestion and runny nose. End: 03-Jun-2016 11:49 Encounter Diagnosis: Preop examination, BMI 27.0-27.9,adult, Former smoker, Cold virus, Ovarian cyst, Urinary tract infection, site not specified, Hematuria, Shoulder pain, right, Diabetes mellitus, controlled, Asplenia, Papillary carcinoma of thyroid, Hypertension [facility] Office Visit On: 19-May-2016 11:20 Encounter Reason: Follow up for chronic medical issues - The patient feels well with minor complaints (right shoulder pain, cyst pain) and is sleeping well. Patient has been compliant with instructions. Current medicatio End: 19-May-2016 17:06 n use: no side effects, compliant with dosing regimen and considered effective by patient. Patient sleeps 6 hours per night. Impact of disease: no overall impact. Nutrition: balanced diet. The medical i ssues the patient is following up for include All identified problems below, blood sugar issues (DM), depression, gastric reflux, high blood pressure, high cholesterol and other (Vit D deficency ). fasting blood sugars :., [ADDITIONAL REASON] Follow up tests - Diagnostic tests include other (labs). Date: (05/13/16). Encounter Diagnosis: Hypertension, Leukocytosis, DEFICIENCY, VITAMIN D NOS (268.9), Diabetes mellitus, controlled, Hypercholesteremia, BMI 27.0-27.9,adult , Former smoker, Shoulder pain, right, Right lower quadrant abdominal pain of unknown etiology [facility] Historical Summary On: 02-May-2016 9:54 [facility] End: 02-May-2016 9:55 Annotation/Addendum On: 21-Mar-2016 13:05 Encounter Diagnosis: Ovarian cyst End: 21-Mar-2016 13:09 [facility] Office Visit On: 17-Mar-2016 12:55 Encounter Reason: Right side pain - Been there a few months. Right by breast, goes down rib cage. Had severe rt sided severe pain under rt rib felt, like bra stuck her. Ultrasound done at [facility] Encounter Diagnosis: Hypertension, Flank pain End: 17-Mar-2016 15:45 , Constipation, Ovarian cyst [facility] Office Visit On: 11-Feb-2016 11:27 Encounter Reason: Follow up tests - Diagnostic tests include other (labs)., [ADDITIONAL REASON] Follow up for chronic medical issues - The patient feels well with minor complai End: 11-Feb-2016 16:47 nts (right side pain) and is sleeping well. Patient has been compliant with instructions. Current medication use: no side effects, compliant with dosing regimen and considered effective by patient. Margaret ent sleeps 6 hours per night. Impact of disease: no overall impact. Nutrition: balanced diet. The medical issues the patient is following up for include All identified problems below, blood sugar issues (DM), depression, gastric reflux, high blood pressure, high cholesterol and other (Vit D deficency ). fasting blood sugars :. Encounter Diagnosis: Hypertension, Fatty liver, Thyroid nodule (241.0), Depression, BMI 29.0-29.9,adult, Nonsmoker, Diabetes mellitus, controlled, DEFICIENCY, VITAMIN D NOS (268.9), Shoulder pain, right [facility] Office Visit On: 05-Nov-2015 16:03 Encounter Reason: Follow up for chronic medical issues - The patient feels well with no complaints and is sleeping well. Patient has been compliant with instructions. Current medication use: no side effects, compliant wi End: 05-Nov-2015 16:43 th dosing regimen and considered effective by patient. Patient sleeps 6 hours per night. Impact of disease: no overall impact. Nutrition: balanced diet. The medical issues the patient is following up fo r include All identified problems below, blood sugar issues (DM), depression, gastric reflux, high blood pressure, high cholesterol and other (Vit D deficency ). fasting blood sugars :.Encounter Diagnosis: Uncontrolled diabetes mellitus type 2 without complications, DEFICIENCY, VITAMIN D NOS (268.9), Hypercholesteremia, Hypertension, Thyroid nodule (241.0), Shoulder pain, right [facility] Office Visit On: 06-Aug-2015 15:12 Encounter Reason: Follow up for chronic medical issues - The patient feels well with minor complaints (foot pain), has decreased energy level and is sleeping poorly (bladder wakes ). Patient has been compliant with instr End: 06-Aug-2015 17:12 uctions. Current medication use: no side effects, compliant with dosing regimen and considered effective by patient. Patient sleeps 6 hours per night. Impact of disease: no overall impact. Nutrition: ba lanced diet. The medical issues the patient is following up for include All identified problems below, blood sugar issues (DM), depression, gastric reflux, high blood pressure, high cholesterol and other (Vit D deficency ).Encounter Diagnosis: Adnexal cyst, DEFICIENCY, VITAMIN D NOS (268.9), Uncontrolled diabetes mellitus type 2 without complications, Encounter for screening mammogram for breast cancer (Renamed from Encounter for screening mammogram for malignant neoplasm of breast) [facility] Office Visit On: 27-Jun-2015 15:59 Encounter Reason: Follow up tests - Diagnostic tests include CT scan.Encounter Diagnosis: Abdominal pain, Adnexal cyst End: 27-Jun-2015 16:35 [facility] Phone Encounter On: 15-Jun-2015 11:49 Encounter Diagnosis: Abdominal pain, acute, right upper quadrant End: 15-Jun-2015 11:58 [facility] Office Visit On: 11-Jun-2015 13:25 Encounter Reason: Follow up ER - Reason for hospitalization abdominal pain. Current medication use: no side effects. The patient feels well with minor complaints (abd pain, bowel issues still). Patient sleeps 6 hours per End: 11-Jun-2015 15:12 night. Note for Follow up ER: Had xray in [facility] rt lower quad forund constipation given colace and bentyl and mag citrate. pt returns for abd pain again Encounter Diagnosis: Abdominal pain, Asplenia, Leukocytosis [facility] Office Visit On: 23-Apr-2015 12:49 Encounter Reason: Follow up for chronic medical issues - The patient feels well with minor complaints (foot pain), has decreased energy level and is sleeping poorly (bladder wakes ). Patient has been compliant with instr End: 23-Apr-2015 17:00 uctions. Current medication use: no side effects, compliant with dosing regimen and considered effective by patient. Patient sleeps 6 hours per night. Impact of disease: no overall impact. Nutrition: ba lanced diet. The medical issues the patient is following up for include All identified problems below, blood sugar issues (DM), depression, gastric reflux, high blood pressure, high cholesterol and other (Vit D deficency ).Encounter Diagnosis: Uncontrolled diabetes mellitus type 2 without complications, Papillary carcinoma of thyroid [facility] Office Visit On: 22-Jan-2015 14:52 Encounter Reason: Follow up for chronic medical issues - The patient feels well with no complaints, has decreased energy level and is sleeping poorly (bladder wakes ). Patient has been compliant with instructions. Curren End: 22-Jan-2015 16:32 t medication use: no side effects, compliant with dosing regimen and considered effective by patient. Patient sleeps 6 hours per night. Impact of disease: no overall impact. Nutrition: balanced diet. Th e medical issues the patient is following up for include All identified problems below, blood sugar issues (DM), depression, gastric reflux, high blood pressure, high cholesterol and other (Vit D deficency ).Encounter Diagnosis: Diabetes type II,uncontrolled, no comp (250.02), Hypertension (401.0), Hypercholesteremia (272.0), DEFICIENCY, VITAMIN D NOS (268.9) [facility] Office Visit On: 23-Oct-2014 16:00 Encounter Reason: Follow up for chronic medical issues - The patient feels well with no complaints and has good energy level. Patient has been compliant with instructions. Current medication use: no side effects, complia End: 23-Oct-2014 16:39 nt with dosing regimen and considered effective by patient. Patient sleeps 6 hours per night. Nutrition: balanced diet. The medical issues the patient is following up for include All identified problems below, blood sugar issues (DM), depression, gastric reflux, high blood pressure, high cholesterol and other (Vit D deficency ). fasting blood sugars : (115), postprandial sugars : (134) and evening sugars : (107)., [ADDITIONAL REASON] Follow up tests - Diagnostic tests include other (labs). Date: (10/04/14). Encounter Diagnosis: Microalbuminuria, Hypertension (401.0), DEFICIENCY, VITAMIN D NOS (268.9), Hypercholesteremia (272.0), Diabetes type II,uncontrolled, no comp (250.02) [facility] Annotation/Addendum On: 05-Oct-2014 10:19 Encounter Diagnosis: Unspecified Diagnosis End: 05-Oct-2014 10:20 [facility] Office Visit On: 02-Oct-2014 14:32 Encounter Reason: skin tag removal Encounter Diagnosis: Cutaneous skin tags, Keratosis, actinic End: 02-Oct-2014 15:42 [facility] Office Visit On: 07-Aug-2014 16:08 Encounter Reason: skin tagsEncounter Diagnosis: Cutaneous skin tags End: 07-Aug-2014 17:01 [facility] Office Visit On: 24-Jul-2014 16:04 Encounter Reason: Follow up for chronic medical issues - The patient feels well with minor complaints ( I have been standing alot at work ), has good energy level and is sleeping well. Patient has been compliant with i End: 24-Jul-2014 16:49 nstructions. Current medication use: no side effects, compliant with dosing regimen and considered effective by patient. Patient sleeps 7 hours per night. Impact of disease: no overall impact. The medic al issues the patient is following up for include All identified problems below, blood sugar issues, gastric reflux, high blood pressure, high cholesterol and other (Vit D deficency).Encounter Diagnosis: Diabetes type II,uncontrolled, no comp (250.02), Foot pain, bilateral [facility] Phone Encounter On: 28-Apr-2014 10:53 Encounter Diagnosis: Unspecified Diagnosis End: 28-Apr-2014 10:55 [facility] Office Visit On: 17-Apr-2014 16:07 Encounter Reason: Follow up for chronic medical issues - Patient has been compliant with instructions. Current medication use: no side effects, compliant with dosing regimen and considered effective by patient. The medic End: 17-Apr-2014 16:53 al issues the patient is following up for include All identified problems below, blood sugar issues, depression, gastric reflux, high cholesterol and other (Vit D deficency, ).Encounter Diagnosis: Hypertension (401.0), GERD (530.81), Diabetes type II,uncontrolled, no comp (250.02) [facility] Office Visit On: 23-Jan-2014 16:23 Encounter Reason: Forms - The patient presents to the office to be evaluate for work form ([employer]) (see scanned in form filled out)., [ADDITIONAL REASON] Follow up tests - Date: (Labs -- scanned into chart -- see scanned doc). End: 23-Jan-2014 17:48 Encounter Diagnosis: Work Physical (V70.5), Diabetes type II,uncontrolled, no comp (250.02), DEFICIENCY, VITAMIN D NOS (268.9) [facility] Prescription Refill On: 13-Dec-2013 9:33 Encounter Diagnosis: Abnormal glucose tolerance test (790.22) End: 13-Dec-2013 9:36 [facility] Office Visit On: 12-Dec-2013 16:14 Encounter Reason: Follow up for chronic medical issues - The patient feels well with minor complaints (swelling in feet and legs), has decreased energy level and is sleeping poorly. Patient has been compliant with instru End: 12-Dec-2013 17:59 ctions. Current medication use: no side effects, compliant with dosing regimen and considered effective by patient. The medical issues the patient is following up for include All identified problems bel ow, blood sugar issues, gastric reflux, high blood pressure, high cholesterol and other (Vit D ).Encounter Diagnosis: Diabetes type II,uncontrolled, no comp (250.02), GERD (530.81), Thyroid nodule (241.0) [facility] Office Visit On: 12-Sep-2013 16:02 Encounter Reason: Follow up for chronic medical issues - The patient feels well with minor complaints, has good energy level and is sleeping poorly (d/t blladder inf). Patient has been compliant with instructions. Jos End: 12-Sep-2013 17:32 t medication use: no side effects, compliant with dosing regimen and considered effective by patient. Patient sleeps 5 hours per night. Nutrition: balanced diet. The medical issues the patient is follow ing up for include All identified problems below, gastric reflux, high blood pressure, high cholesterol and other (Vit D deficency )., [ADDITIONAL REASON] Urinary problems - The onset of the urinary problems has been sudden and they hodges ve been occurring in a persistent pattern for weeks. The course has been constant. The urinary problems are described as moderate. The urinary problem is characterized as frequency, urgency and incontin ence of urine. There has been no associated fever / chills, back pain, nausea or blood in urine. Encounter Diagnosis: Urinary Frequency (788.41), Depression (311.), Splenomegaly (789.2), Hypertension (401.0), Thyroid cancer (193), Impaired fasting glucose (790.21), GERD (530.81), Fatty Liver (571.8), DEFICIENCY, VITAMIN D NOS (268.9), Diabetes type II,uncontrolled, no comp (250.02) [facility] Office Visit On: 24-Jun-2013 14:43 Encounter Reason: Follow up acute care visit - Patient has been compliant with instructions. Current medication use: no side effects and compliant with dosing regimen. The medical issues the patient is following up for i End: 24-Jun-2013 15:39 nclude All identified problems below and other (strep).Encounter Diagnosis: Cough (786.2), Thyroid cancer (193), Fatigue (780.79) [facility] Office Visit On: 14-Jun-2013 15:11 Encounter Reason: Flu Like Symptoms - Symptoms include fever, chills, body aches, sore throat, productive cough and headache. Onset was gradual 1 week(s) ago.Encounter Diagnosis: Body aches (780.96), ACUTE PHARYNGITIS (462.), End: 14-Jun-2013 15:34 Strep pharyngitis (034.0), Cough (786.2), Thyroid cancer (193) [facility] Office Visit On: 31-May-2013 11:27 Encounter Reason: Urinary problems - The onset of the urinary problems has been sudden and they have been occurring in a persistent pattern for weeks. The course has been increasing. The urinary problems are described as End: 31-May-2013 12:40 moderate. The urinary problem is characterized as frequency, urgency, painful urination and incontinence of urine.Encounter Diagnosis: Dysuria (788.1), Hypertension (401.0), Depression (311.) [facility] Office Visit On: 14-Mar-2013 16:04 Encounter Reason: Follow up tests - Diagnostic tests include other (labs) and ultrasound.Encounter Diagnosis: Thyroid nodule (241.0), Thyroid mass (246.9), Bleeding gums (523.8) End: 14-Mar-2013 16:56 [facility] Office Visit On: 28-Feb-2013 16:17 Encounter Reason: Follow up for chronic medical issues - The patient feels well with minor complaints (anxiety,) and has good energy level. Patient has been compliant with instructions. Current medication use: no side ef End: 28-Feb-2013 17:03 fects, compliant with dosing regimen and considered effective by patient. The medical issues the patient is following up for include All identified problems below, depression, gastric reflux, high blood pressure, high cholesterol and other (Vit D deficency).Encounter Diagnosis: Splenomegaly (789.2), Depression (311.), Hypertension (401.0), Thyroid nodule (241.0) [facility] Office Visit On: 05-Sep-2011 8:44 Encounter Reason: Follow up for chronic medical issues - The patient feels well with no complaints, has good energy level and is sleeping well. Patient has been compliant with instructions. Current medication use: no cy End: 05-Sep-2011 9:29 e effects and compliant with dosing regimen. Patient sleeps 5 hours per night. The medical issues the patient is following up for include All identified problems below, gastric reflux, high blood pressu re, high cholesterol and other (Vit D deficency).Encounter Diagnosis: Splenomegaly (789.2), Hepatomegaly (789.1), Hypertension (401.0), Depression (311.), Fatty Liver (571.8), Abdominal Pain,RUQ(789.01) [facility] Office Visit On: 20-Jun-2011 9:53 Encounter Reason: Follow up tests - Diagnostic tests include other (X ray , labs). Date: (06/13/11). Follow up visit with no current symptoms. There is no family history of breast cancer, cardiovascular disease, cystic fi End: 20-Jun-2011 10:36 brosis, Down's syndrome, mental retardation or myocardial infarction before age 55. Past medical history includes hypertension and other (Vit D deficency, GERD, cholesterol).Encounter Diagnosis: Splenomegaly (789.2), Fatigue (780.7) [facility] Phone Encounter On: 13-Jun-2011 11:11 Encounter Diagnosis: Hepatomegaly (789.1) End: 23-Jun-2011 9:36 [facility] Annotation/Addendum On: 06-Jun-2011 14:51 Encounter Diagnosis: Hepatomegaly (789.1), Splenomegaly (789.2) End: 06-Jun-2011 14:58 [facility] Office Visit On: 06-Jun-2011 8:40 Encounter Reason: Follow up for chronic medical issues - The patient feels well with minor complaints, has decreased energy level and is sleeping well. Patient has been compliant with instructions. Current medication use End: 06-Jun-2011 9:23 : experiencing side effects (since increase in citalopram was getting HODGES, decreased dose to 20mg qd - helps HODGES ), compliant with dosing regimen and considered effective by patient. Patient sleeps 6 hour s per night. Nutrition: balanced diet. The medical issues the patient is following up for include All identified problems below, depression, gastric reflux, high blood pressure, high cholesterol and other (Vit D deficency)., [ADDITIONAL REASON] Follow up tests - Diagnostic tests include CT scan and other (labs). Date: (05/16/11). Follow up visit with no current symptoms. There is no family history of breast cancer, cardiov ascular disease, cystic fibrosis, Down's syndrome, mental retardation or myocardial infarction before age 55. Past medical history includes emotional problems (depression), hypertension and other (cholesterol, Vit D deficency). Encounter Diagnosis: GERD (530.81), Hypertension (401.0), Depression (311.), Abdominal Pain,RUQ(789.01), Thyroid nodule (241.0), Fatty Liver (571.8) [facility] Office Visit On: 28-Feb-2011 8:29 Encounter Reason: Follow up tests - Diagnostic tests include other (labs). Date: (02/13/11). Current symptoms include abdominal pain (RLQ). There is no family history of breast cancer, cardiovascular disease, cystic fibro End: 28-Feb-2011 9:17 sis, Down's syndrome, mental retardation or myocardial infarction before age 55. Past medical history includes hypertension and other (GERD, Vit D, cholesterol, ).Encounter Diagnosis: Hypertension (401.0), Depression (311.), DEFICIENCY, VITAMIN D NOS (268.9), Hypercholesteremia (272.0), ARTHRALGIAS 719.40, Abdominal Pain,RUQ(789.01) [facility] Office Visit On: 17-Jan-2011 8:28 Encounter Reason: Follow up for diabetes/glucose intolerance - The patient feels well with no complaints, has good energy level and is sleeping well. Patient has been compliant with instructions. Nutrition: balanced diet End: 17-Jan-2011 9:11 and has evening snack. fasting blood sugars : (76 93 88 73 84 90 99 94 91 107 ) and postprandial sugars : (124 108 103 128 136 104 138 ).Encounter Diagnosis: Impaired fasting glucose (790.21), Abnormal glucose tolerance test (790.22), OBESITY NOS (278.00) [facility] Office Visit On: 13-Dec-2010 8:44 Encounter Reason: Follow up, Laboratory Test Results - Date: (12/06/10). Current symptoms/reason for visit include/s Follow up visit with no current symptoms. There is no family history of breast cancer, cardiovascular dis End: 13-Dec-2010 9:31 ease, cystic fibrosis, Down's syndrome, mental retardation or myocardial infarction before age 55. Past medical history includes elevated cholesterol, gastroesophageal reflux disease and hypertension.Encounter Diagnosis: Impaired fasting glucose (790.21) [facility] Office Visit On: 06-Dec-2010 7:47 Encounter Reason: Follow up for chronic medical issues - The patient feels well with minor complaints, has decreased energy level and is sleeping poorly. Patient has been compliant with instructions. Current medication u End: 06-Dec-2010 14:49 se: no side effects, compliant with dosing regimen and considered effective by patient. Patient sleeps 5 hours per night. Nutrition: balanced diet. The medical issues the patient is following up for inc lude All identified problems below, depression, gastric reflux, high blood pressure, high cholesterol and other (Vit D deficency ).Encounter Diagnosis: GERD (530.81), Hypertension (401.0), Depression (311.), DEFICIENCY, VITAMIN D NOS (268.9), Abnormal glucose tolerance test (790.22), Low back pain (724.2) [facility] Annotation/Addendum On: 23-Sep-2010 15:01 Encounter Diagnosis: Hypercholesteremia (272.0) End: 23-Sep-2010 15:07 [facility] Office Visit On: 20-Sep-2010 11:00 Encounter Reason: Follow up, Laboratory Test Results - Date: (09/06-09/08/10). Current symptoms/reason for visit include/s Symptoms include other (ST). There is no family history of breast cancer, cardiovascular disease, cys End: 20-Sep-2010 11:54 tic fibrosis, Down's syndrome, mental retardation or myocardial infarction before age 55. Past medical history includes elevated cholesterol, emotional problems (depression), gastroesophageal reflux disease, hypertension and other (Vit D deficency). Encounter Diagnosis: DEFICIENCY, VITAMIN D NOS (268.9), ACUTE PHARYNGITIS (462.), Thyroid nodule (241.0), Hypertension (401.0), Viral infection, unspecified (079.99) [facility] Office Visit On: 06-Sep-2010 8:28 Encounter Reason: Follow up for chronic medical issues - The patient feels well with no complaints, has decreased energy level and is sleeping well. Patient has been compliant with instructions. Current medication use: n End: 06-Sep-2010 11:06 o side effects, compliant with dosing regimen and considered effective by patient. Patient sleeps 6 hours per night. Nutrition: balanced diet. The medical issues the patient is following up for include All identified problems below, blood sugar issues (hyperglycemia), depression, gastric reflux, high blood pressure and high cholesterol.Encounter Diagnosis: GERD (530.81), Abnormal glucose tolerance test (790.22), Sciatica (724.3), Hypercholesteremia (272.0), Fatty Liver (571.8), Hypertension (401.0), Thyroid nodule (241.0) [facility] Office Visit On: 09-Aug-2010 10:06 Encounter Reason: Leg Pain - This condition occurred without any known injury. The patient sustained an injury to the right hip, right thigh, right knee and right lower leg. Symptoms include leg pain and decreased range of motion. End: 09-Aug-2010 10:44 Encounter Diagnosis: LOW BACK PAIN WITH RADICULOPATHY (724.4), Sciatica (724.3) [facility] Annotation/Addendum On: 05-Jun-2010 17:20 Encounter Diagnosis: Thyroid nodule (241.0), postmenopausal without estrogen End: 05-Jun-2010 17:24 [facility] Office Visit On: 04-Jun-2010 16:28 Encounter Reason: Follow up for chronic medical issues - The patient feels well with no complaints, has good energy level and is sleeping well. Patient has been compliant with instructions. Current medication use: no cy End: 04-Jun-2010 22:04 e effects and compliant with dosing regimen. Patient sleeps 6 hours per night. Nutrition: inappropriate diet, supplemental vitamins and low salt diet. The medical issues the patient is following up for include All identified problems below, depression, gastric reflux, high blood pressure, high cholesterol and other (anemia, low hdl, fatigue). weight : (home- 185). Note for Follow up for chronic medic al issues: she saw [facility] for her knee and didnt find anything on xray so has mri tomorrow and is doing pt- no gerd on prevacid- her mood reasonable but still alot of stress with sonEncounter Diagnosis: Abnormal glucose tolerance test (790.22), Hypertension (401.0), GERD (530.81), Depression (311.), Elevated LFT (790.6), Hypercholesteremia (272.0), Headache (784.0) [facility] Office Visit On: 25-Feb-2010 16:19 Encounter Reason: Knee Pain - The onset of the knee pain has been gradual following an incident not at work (banged knee on mower) and has been occurring in a persistent pattern for months. The course has been gradually End: 25-Feb-2010 22:25 worsening. The knee pain is moderate to severe. The knee pain is characterized as a dull aching. The knee pain is described as being located in the superior patella (right knee). There were no relieving factors. The symptoms have been associated with muscle stiffness ,pain under patella ,painful ROM ,decreased ROM and difficulty going up and down stairs, while the symptoms have not been associated wit h muscle swelling ,giving way ,medial pain ,lateral pain ,warmth ,burning sensation ,fever ,chills or difficulty arising from chair. , [ADDITIONAL REASON] Follow up, Laboratory Test Results - Lab results: other (abn gtt). Date: ( 0 and 02/18/10- in scanned documents). Encounter Diagnosis: Abnormal glucose tolerance test (790.22), Hypertension (401.0), Knee pain (719.46), Hypercholesteremia (272.0) [facility] Office Visit On: 21-Dec-2009 10:17 Encounter Reason: Follow up Hypertension - The patient has experienced follow up hypertension for months. The symptoms have been associated with family history of hypertension and obesity, while the symptoms have not bee End: 23-Dec-2009 21:56 n associated with anxiety ,excessive caffeine intake ,kidney disease ,sleep apnea symptoms ,use of nasal decongestants ,use of oral contraceptives or use of steroids. blood pressure range : (not monitor ing blood pressures at home). Note for Follow up Hypertension: At last checkup pt's blood pressure meds were increased but not sure which one and it doesnt state which in the notes. Pt hasnt been joe toring her bp's. Pt has been having headaches recently as a possible sign of high bp and her bp today was elevated as well. hip still hurts and bp not better - but admits to noncompliance with lisinopri l- so not exercising-hurts if sits for a while and into hip and knee --occ leg feels numb- hurts to lay on- she thinks have fibro- has alot of the sx-, [ADDITIONAL REASON] Follow up, Laboratory Test Results - Date: (12/11/09- in scanned documents). Encounter Diagnosis: Hypertension (401.0), Depression (311.), GERD (530.81), Pelvis/Thigh/Hip Pain (719.45), LOW BACK PAIN WITH RADICULOPATHY (724.4), Hyperglycemia (790.29), Hypercholesteremia (272.0) [facility] Office Visit On: 15-Oct-2009 16:11 Encounter Reason: Follow up for chronic medical issues - The patient feels well with minor complaints (Left hip pain continues. Discussed this previously. Has been exercising and walking, but not able to do as much b/c o End: 15-Oct-2009 21:45 f the hip pain. Other than hip pain, feeling fine, no new complaints.) ,has good energy level and is sleeping well. Patient has been compliant with instructions. Current medication use: no side effects and compliant with dosing regimen. Patient sleeps 6 hours per night. Nutrition: inappropriate diet ,supplemental vitamins and low salt diet. The medical issues the patient is following up for include Al l identified problems below ,depression ,gastric reflux ,high blood pressure ,high cholesterol and other (anemia, low hdl, fatigue). weight :. Note for Follow up for chronic medical issues: -she is de presxssed fairly freq because son is into drugs and etoh and hse is having to take care of his children and he isnt working- she is willing to go up on meds-- she saw Katerina bobo- told her come back in year-, [ADDITIONAL REASON] Follow up, Laboratory Test Results - Date: (09/19/09- in scanned documents). Encounter Diagnosis: Hypertension (401.0), Depression (311.), Elevated LFT (790.6), GERD (530.81), Pelvis/Thigh/Hip Pain (719.45), Thyroid nodule (241.0), Hypercholesteremia (272.0), Fatty Liver (571.8) [facility] Office Visit On: 16-Jul-2009 16:25 Encounter Reason: Follow up for chronic medical issues - The patient feels well with no complaints ,has good energy level and is sleeping well. Patient has been compliant with instructions. Current medication use: no cy End: 16-Jul-2009 17:23 e effects and compliant with dosing regimen. Patient sleeps 6 hours per night. Nutrition: inappropriate diet and supplemental vitamins. The medical issues the patient is following up for include All kevin ntified problems below ,depression ,gastric reflux ,high blood pressure ,high cholesterol and other (anemia, low hdl, fatigue). Note for Follow up for chronic medical issues: her back is feeling mariangel r- she saw [facility] for her thumb- they are going to do an mri of her thumb to look at it- mood been unchanged- sleepingunhcanged- bp is good- no gerdEncounter Diagnosis: Hypertension (401.0), GERD (530.81), Elevated LFT (790.6), Low back pain (724.2) , Hypercholesteremia (272.0), Thyroid nodule (241.0), Hypopotassemia (276.8) [facility] Office Visit On: 04-Jun-2009 16:55 Encounter Reason: Follow up, Diagnostic Procedure Results - Diagnostic tests include X-Ray (04/23/09). Encounter Diagnosis: Low back pain (724.2), Muscle spasm (728.85) End: 04-Jun-2009 17:21 [facility] Office Visit On: 23-Apr-2009 15:48 Encounter Reason: Follow up hospital - Reason for ER visit: note: (aa 1 week ago thursday). The patient feels well with minor complaints (still has a sore back). Patient has been compliant with instructions. Current medica End: 23-Apr-2009 16:40 tion use: no side effects and compliant with dosing regimen. Nutrition: balanced diet. Encounter Diagnosis: Rosacea (695.3), Muscle spasm (728.85), Low back pain (724.2), Pain in thoracic spine (724.1), VIRAL WARTS, NOS (078.19) [facility] Office Visit On: 09-Apr-2009 10:30 Encounter Reason: Follow up for chronic medical issues - The patient feels well with minor complaints (hand pain from lump on right wrist, base of thumb) ,has good energy level and is sleeping well. Patient has been comp End: 09-Apr-2009 11:07 liant with instructions. Current medication use: no side effects and compliant with dosing regimen. Patient sleeps 6 hours per night. Nutrition: inappropriate diet ,supplemental vitamins and low salt di et. The medical issues the patient is following up for include All identified problems below ,depression ,gastric reflux ,high blood pressure ,high cholesterol and other (anemia, low hdl, fatigue). Note for Follow up for chronic medical issues: sheis still only doing 5mg of lisipril once a day - so encourage compliance- she had thyroid biopsy and per her was neg- and was told to come back in one yea r- mood good with the celexa - hot flashes in general ok- no gerd- getting breast us tomorrow, [ADDITIONAL REASON] Lumps - The onset of the lumps has been gradual and has been occurring in a pers istent pattern for years. The course has been increasing. The lumps are described as moderate. Note for Lumps: on right wrist/base of thumb. Had for years, never bothered her until last 2 months has b een a dull ache with sharp pains shooting thru it.- getting worse over the last several mos- it is her right mcp 1st , [ADDITIONAL REASON] Follow up, Laboratory Test Results - Date: (03/13/09- in scanned documents). , [ADDITIONAL REASON] Follow up, Diagnostic Procedure Results - Diagnostic tests include mammography. Date: (04/05/09- in scanned documents). Encounter Diagnosis: Hypertension (401.0), Depression (311.), GERD (530.81), Low HDL (272.5), Elevated LFT (790.6), Thyroid nodule (241.0), Anemia,Blood Loss(Chronic) (280.0), Hypopotassemia (276.8), Thumb pain (729.5) [facility] Office Visit On: 26-Dec-2008 15:40 Encounter Reason: Follow up Meds - The patient feels well with no complaints ,has good energy level and is sleeping well. Patient has been compliant with instructions. Current medication use: no side effects and complian End: 26-Dec-2008 21:59 t with dosing regimen. Patient sleeps 6 hours per night. Note for Follow up Meds: f/u to lisinopril- weight down 6 pounds- she had thyroid biopsy- and awaiting the resulst her bp is better- and her hot flashes are betterEncounter Diagnosis: Hypertension (401.0), GERD (530.81), Thyroid nodule (241.0), Hot Flashes (782.62), Hypercholesteremia (272.0), Hypopotassemia (276.8), uterine mass with abnormal menstrual bleeding and anemia of 9.8, Anemia,Blood Loss(Chronic) (280.0), postmenopausal without estrogen, screen [facility] Office Visit On: 06-Nov-2008 16:37 Encounter Reason: Follow up Meds - The patient feels well with minor complaints (still having hot flashes) ,has good energy level and is sleeping well (off and on). Patient has been non-compliant with instructions. Curre End: 06-Nov-2008 22:55 nt medication use: no side effects and non-compliant with dosing regimen. Patient sleeps 6 hours per night. Note for Follow up Meds: she gets discouraged easily because issues of son we discussed rare thoughts of Si - but to call if any thoughts at all or change in mood for worse- she didnt get any better with estrovan- wt up 8 pounds not exerciing - occ pop- , [ADDITIONAL REASON] Follow up, Diagnostic Procedure Results - Diagnostic tests include ultrasound (thyroid- in scanned documents). Date: (09/25/08). , [ADDITIONAL REASON] Follow up, Laboratory Test Results - Date: (09/25/08- in scanned documents). Encounter Diagnosis: Thyroid nodule (241.0), Depression (311.), Hypertension (401.0), proteinuria, Hypercholesteremia (272.0) [facility] Office Visit On: 05-Sep-2008 16:02 Encounter Reason: Follow up for chronic medical issues - The patient feels well with minor complaints (hot flashes) ,has good energy level and is sleeping well. Patient has been compliant with instructions. Current medic End: 05-Sep-2008 22:15 ation use: no side effects and compliant with dosing regimen. Patient sleeps 6 hours per night. Nutrition: inappropriate diet ,no supplemental vitamins & iron and low salt diet. The medical issues t he patient is following up for include All identified problems below ,depression ,gastric reflux ,high blood pressure (low hdl) ,high cholesterol (low hdl) and other (fatigue, anemia, lbp, low potassium , thyroid nodule). weight :. Note for Follow up for chronic medical issues: she went to [facility] due to allergies-- she had a nodule in lung-- she had ct yesterday on chest to followup- she is seeing booker adkins for this and he ordered pfts- never did the therapy for her hip/back and she hadnt done the labs I ordered-- not much gerd, [ADDITIONAL REASON] Hot flashes - The onset of the hot flashes has been gradual and they have been o ccurring in a persistent pattern for months. The course has been recurrent. The hot flashes are described as moderate. Note for Hot flashes: she doesnt want to take estrogen and estorvan didnt work- s he still feels there is anxiety attacks and is willing to take celexa for this and maybe would help with hot flahses Encounter Diagnosis: Hypertension (401.0), Thyroid nodule (241.0), Depression (311.), GERD (530.81), Hypercholesteremia (272.0), Hot Flashes (782.62) [facility] Office Visit On: 09-Aug-2007 17:06 Encounter Reason: Follow up for chronic medical issues - The patient feels well with minor complaints (leg pain and hot flashes) ,has good energy level and is sleeping well (except when gets hot flashes). Patient has bee End: 09-Aug-2007 22:27 n compliant with instructions. Current medication use: no side effects and compliant with dosing regimen. Nutrition: inappropriate diet and no supplemental vitamins & iron. The medical issues the gail mackenzie is following up for include All identified problems below ,depression ,gastric reflux ,high blood pressure ,high cholesterol and other (fatigue, anemia, hypopotassemia). Note for Follow up for chronic medical issues: never got lab work done, [ADDITIONAL REASON] Leg pain - The leg pain began gradually over time and has been occurring for months. The symptoms have been occurring in a persistent pattern. The symptoms are described as a burnin g sensation ,piercing pain and shooting pain and are moderate to severe. The symptoms occur at rest and during the day (when standing at work). There is involvement of the left lower extremity (and hip) . There are no precipitating factors. There are no aggravating factors. Relief is provided by Tylenol (helps). The symptoms have been associated with numbness and tingling in toes, while the symptoms hodges ve not been associated with paresthesias ,calf swelling ,fever or chills. Note for Leg pain: left lateral leg--/ buttock goes all the way to foot-- getting numbness in leg- only bothers to walk - not sitting- but does get low back pain if sits alot - occ feels like leg will give out- no loss of bowel or bladder control , [ADDITIONAL REASON] Hot flashes - The onset of the hot flashes has been gradual and they have been o ccurring in a persistent pattern for 8 months. The course has been recurrent. The hot flashes are described as moderate. Encounter Diagnosis: URINARY FREQUENCY (788.41), Hypertension (401.0), GERD (530.81), Anemia,Blood Loss(Chronic) (280.0), Low HDL (272.5), LOW BACK PAIN WITH RADICULOPATHY (724.4), Pelvis/Thigh/Hip Pain (719.45) [facility] Office Visit On: 19-Apr-2007 17:31 Encounter Reason: Follow up for chronic medical issues - The patient feels well with no complaints ,has good energy level and is sleeping well. Patient has been compliant with instructions. Current medication use: no cy End: 19-Apr-2007 18:05 e effects and compliant with dosing regimen (sometimes forgets to take bid). Nutrition: inappropriate diet ,no supplemental vitamins & iron and low salt diet. The medical issues the patient is follo wing up for include All identified problems below ,depression ,gastric reflux ,high blood pressure ,high cholesterol and other (hypotassemia, fatigue, anemia). Note for Follow up for chronic medical is sues: urinary sx and vag d/c has been gone and feeling alot better- often forgets her bp pills and is likely the reason her bp isnt perfect- she gets eye strain at work- gets the headache at the end of day- and comes up neck and around her head -- she doesnt feel bad enough to take meds at this pointEncounter Diagnosis: Hypertension (401.0), Anemia,Blood Loss(Chronic) (280.0), Low HDL (272.5), GERD (530.81), Vaginal discharge (623.5), URINARY FREQUENCY (788.41) [facility] Office Visit On: 17-Feb-2007 10:18 Encounter Reason: Follow up acute care visit - The patient feeling better since last seen. Patient has been compliant with instructions. Current medication use: compliant with dosing regimen. Patient sleeps 6 hours per n End: 17-Feb-2007 14:59 ight. Nutrition: balanced diet. The medical issues the patient is following up for include other (dysuria, vag. discharge). Note for Follow up acute care visit: Had been here last week for urinary sym ptoms and has a hx of an STD that was recently treatedEncounter Diagnosis: Vaginal discharge (623.5), URINARY FREQUENCY (788.41), Well Women Exam (V72.31)( Pap, Mammo, Routine Female and Dexa) [facility] Office Visit On: 26-Jan-2007 8:28 Encounter Reason: Dysuria - The onset of the dysuria has been sudden and has been occurring in an intermittent pattern for 1 months. The course has been recurrent. The dysuria is described as mild. The quality of the tamir End: 26-Jan-2007 9:37 n is described as a burning sensation (itchy) The dysuria is described as being located in the vaginal area. The dysuria radiates to the left flank and right flank. The symptoms have been associated wit h flank pain ,frequency ,nocturia and vaginal discharge, while the symptoms have not been associated with chills ,diabetes ,fever ,hematuria ,history of passing a stone ,incontinence ,past history of ur inary tract infections ,trauma to abdomen ,trauma to perineal area ,urethral discharge ,urgency or excessive caffeine intake. Note for Dysuria: sill has intermittent itching and burning at this point- still some yellowish / white discharge Encounter Diagnosis: dysuria, Vaginal discharge (623.5) [facility] Office Visit On: 11-Jan-2007 11:43 Encounter Diagnosis: Thyroid nodule (241.0), Anemia,Blood Loss(Chronic) (280.0), Urinary tract infection, site not specified (599.0), Hypertension (401.0), Hypopotassemia (276.8), uterine mass with abnormal menstrual bleeding and anemia of 9.8, End: 11-Jan-2007 21:17 Hypercholesteremia (272.0) [facility] Office Visit On: 24-Dec-2006 10:48 Encounter Reason: Dysuria - The onset of the dysuria has been sudden and has been occurring in a persistent pattern for 2 weeks. The course has been constant. The dysuria is described as moderate. The quality of the pain End: 24-Dec-2006 14:12 is described as a burning sensation (itching) and a discomfort The dysuria is described as being located in the vaginal area. The dysuria does not radiate. The symptoms have been associated with freque ncy ,urgency and vaginal discharge. Note for Dysuria: is scheduled for a hysterectomy 12/31/06- discharge is yellow and comes and goes- for 2 weeks-- no fever- but increased itching and burning-- going to have a hysterectomy next week Encounter Diagnosis: dysuria, Vaginal discharge (623.5) [facility] Office Visit On: 27-Nov-2006 13:17 Encounter Reason: Follow up tests - Diagnostic tests include ultrasound (thyroid and pelvic). Date: (11/16/06- on face sheet). , [ADDITIONAL REASON] Follow up, Laboratory Test Results - Date: (11/18/06 and 11/25/06- on face sheet). End: 27-Nov-2006 14:07 Encounter Diagnosis: uterine mass with abnormal menstrual bleeding and anemia of 9.8, Thyroid nodule (241.0), Anemia,Blood Loss(Chronic) (280.0), Hypertension (401.0), URINARY FREQUENCY (788.41), Hypercholesteremia (272.0) [facility] Office Visit On: 21-Oct-2006 13:47 Encounter Reason: Urinary problems - The onset of the urinary problems has been gradual and they have been occurring in a persistent pattern for 1 months. The course has been increasing. The urinary problems are describe End: 21-Oct-2006 14:36 d as moderate. The urinary problem is characterized as frequency (pressure). There has been associated back pain, while there has been no associated fever / chills ,nausea or blood in urine. Note for U rinary problems: not much caffeine - drinks alot of water- biggest issue is urinary frequency - no burning- diabetes in the family- mom and nephewEncounter Diagnosis: URINARY FREQUENCY (788.41), abnormal menstrual bleeding, Thyroid nodule (241.0), Hypertension (401.0) [facility] Historical Summary On: 19-Oct-2006 15:06 [facility] End: 19-Oct-2006 15:14 Payers Gladis GASCA/Leora Murray; a guarantor
--- OUTSIDE RECORDS SUMMARY | 2018-09-24 05:39 | XMS RPT_ITS | Continuity of Care Document ---
:1960 Author Organization [facility] Address [address] [facility] [address] [place] [address] Phone Care Team Providers Name Role Phone Kriss CRISMaddy Unavailable Dr. Cortez Anna Unavailable Wild JOHNSON, Talita Bonilla Unavailable Miah JOHNSON, Romaine Baldwin Unavailable Dr. Baljit Miner Unavailable Dr. Bob Camara Unavailable Grace Nolasco LPN Unavailable Unavailable Jany Moreau Unavailable Unavailable Zandra Kruger Unavailable Unavailable Unavailable Unavailable Problems Name Dates Details Abdominal pain (R10.9, 789.00) Comments: Rt lower CT reviewed 6cm adnexal cyst Status: Active Abnormal mammogram (R92.8, 793.80) Status: Active Adnexal cyst (N94.9, 625.8) Comments: CT done [facility] 6cm Adnexal cyst seeing Tezano Status: Active [...] 193) Comments: removed by Dr. Kelton Owens [facility] on on thyriod hormone replacemnt Status: [...] Thyroid nodule (E04.1, 241.0) Comments: has seen vik and had thyroid biopsy in past , [...] Refills: 3 Ordered:12-Nov-2017 Kriss CRIS, Maddy Muniz CRIS, Maddy Orozco Start : 12-Nov-2017 Active SHAY CONTOUR TEST (In Vitro Strip) 1 (one) Strip Strip two times daily for 0 days Quantity: 1 {Bottle} Refills: 3 Ordered:18-Jun-2015 Kriss FRESH FOODS CLERK, Maddy Muniz CNP, Maddy Orozco Start : 18-Jun-2015 Active Comments:Dx: 250.0 Shay Microlet Lancets Miscellaneous 1 (one) Misc Misc bid as directed for 0 days Quantity: 1 {Box} Refills: 6 Ordered:28-Jan-2016 Kriss FRESH FOODS CLERK, Maddy Muniz CNP, Maddy Orozco Start [...] Quantity: 90 {Tablet} Refills: 0 Ordered:14-Mar-2013 Bibi aJin LPN Start : 16-Feb-2013 End : 17-May-2013 Inactive Comments:Pt aware needs apt before more refills Cipro 500 MG Oral Tablet 1 Tablet bid for 7 days Quantity: 14 {Tablet} Refills: 0 Ordered:23-Jun-2016 Kriss LYNCH, Maddy Muniz CNP, Maddy Oroczo Start : 23-Jun-2016 End : 30-Jun-2016 Inactive [...] : 23-Apr-2009 End : 06-Sep-2010 Inactive DRISDOL, [id number] (Oral Capsule) 1 Capsule twice weekly for [...] for 30 days Refills: 0 Ordered:31-Jul-2015 Kriss CRIS, Maddy Muniz CRIS Maddy Orozco Start : [...] Quantity: 30 {Capsule} Refills: 0 Ordered:19-May-2016 Kriss FRESH FOODS CLERK, Maddy Muniz FRESH FOODS CLERK, Keyana Start : 11-Feb-2016 End : [...] Tashia Casiano End : 09-Aug-2007 Discontinued ERGOCALCIFEROL, [id number] (Oral Capsule) 1 (one) Capsule Capsule twice weekly for 0 days Quantity: 24 {Capsule} Refills: 0 Ordered:22-Jan-2015 Grace oNlasco LPN Start : 23-Jan-2014 End : 22-Jan-2015 Discontinued FERROUS SULFATE EC, 325MG (PO EC Tab) 1 tab bid for 0 days Refills: 0 Ordered:19-Apr-2007 KyleSheridan littlefer Start : 19-Apr-2007 End : 19-Apr-2007 [...] Thyroid mass (246.9) Comments: enlarging, 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 [place] [place] Ordering Dr: Tracey Barnhart MD Date: 09/16/17 Location[place] [facility] Sex: F C Admitted: Test Reason : [...] ECG Confirmed by ROD BENDER MD ([id number]), slot editor ALEJANDRA AGOSTO ([id number]) on 09/18/2017 1:36:25 PM Referred By: Tracey Barnhart Confirmed By:ROD BENDER MD 09/18/17 1336 Date Rod Bender MD CC: Maddy Monterroso GENETICS TEACHER; Tracey Barnhart MD Signed 17-Sep-2017 Operative Report Result: Comments: See Note; NOTES: [facility] Medical Records Department [address] [place] [address] Operative Report 09/17/17 1454 MR#: [id number] Acct: [id number] Name: DAYANARA MURRAY Rep #: [id number] : 1960 56 From: Tracey Barnhart MD PCP: Maddy Monterroso NP Status: REG WVC Y Location: [place] [address] Report of Operation Date of Procedure: 09/17/17 Pre-Operative Diagnosis: compl ex right adexexal mass Post-Operative Diagnosis: Pelvic mass, adhesions of colon to anterior abdominal wall and vaginal cuff Surgery/Procedure Performed:: Diagnostic laparascopy, cystoscopy Description of Surgical Findings:: pelvic mass in midline over bladder and vaginal cufff, ovary not well defined but under adehsions. Adhesions of colon to anterior abdominal wall tapper shank: Cardenas tapper shank: Zaki CATES Type of Anesthesia:: General Anesthesiologist: [...] further intervention we will recommend consultation with [facility] oncology at a tertiary care center. The [...] Operative Report Result: Comments: See Note; NOTES: [facility] Medical Records Department [address] [place] [address] Operative Report 09/17/17 1310 MR#: [id number] Acct: [id number] Name: DAYANARA MURRAY Rep #: [id number] : 1960 56 From: Tracey Barnhart MD PCP: Maddy Monterroso NP Status: REG SD Y Location: [place] [address] ADDENDUM by Tracey Barnhart MD on 09/17/17 at 1454 Code Visit DISREGARD THIS OPERATIVE REPORT< ENTERED ERRONEOUSLY> SEE REPORT FROM APPROX 1500 for today's surgery 09/17/17 1454 <Electronically signed by Tracey Barnhart MD> Date Tracey Barnhart MD cc: Maddy Monterroso GENETICS TEACHER; Tracey Barnhart MD * Signed Report of [...] left tube not able to be identified tapper shank: Angela Bennett Type of Anesthesia:: General Anesthesiologist: [...] Operative Report Result: Comments: See Note; NOTES: [facility] Medical Records Department [address] [place] [address] Operative Report 09/17/17 1310 MR#: [id number] Acct: [id number] Name: DAYANARA MURRAY Rep #: [id number] : 1960 56 From: Tracey Barnhart MD PCP: Maddy Monterroso NP Status: REG SDC Y Location: [place] [address] Report of Operation Date of Procedure: 09/17/17 [...] left tube not able to be identified tapper shank: Angela Baumann Type of Anesthesia:: General Anesthesiologist: Judit Sahni [...] Discharge Instruction Result: Comments: See Note; NOTES: [facility] Medical Records Department [address] [place] [address] Instructions for Home/Discharge Instructions 09/17/17 1229 MR#: [id number] Acct: [id number] Name: DAYANARA MURRAY Rep #: [id number] : 1960 56 From: Tracey Barnhart MD PCP: Maddy Monterroso NP Status: REG SDC Discharge Diet: No [...] HCl 500 mg PO DAILY 09/15/17 Hydrocodone/Acetaminophen [[place] 5-325 Tablet] 1 each PO Q6H PRN PRN 6 Days #20 tablet 09/17/17 Ibuprofen [ Motrin] 600 mg PO Q6H PRN #30 tab 09/17/17 The following prescriptions were given: Hydrocodone/Acetaminophen [[place] 5-325 Tablet] 1 each PO Q6H PRN PRN 6 Days #20 tablet PRN Reason: Pain Ibuprofen [Mo luz] 600 mg PO Q6H PRN #30 tab PRN Reason: Pain Primary Care Physician: Maddy Monterroso [Primary Care Provider] - Please Follow Up With: Tracey Barnhart MD - [phone] When: 1-2 weeks or as needed in my office 09/17/17 1230 <Electronically signed by Tracey Barnhart MD> Date Tracey Barnhart MD CC: Maddy Monterroso NP 26-Aug-2017 Abdomen/Pelvis without Cont Result: Comments: See Note; NOTES: [facility] Imaging Services [address] [place] [address] Abdomen/Pelvis without Cont MR#: [id number] Acct: [id number] Name: DAYANARA MURRAY Rep # : [id number] : 1960 F 56 From: Alejandra Urban MD PCP: Maddy Monterroso NP Status: REG CLI Study: Abdomen/Pelvis without Cont Date of Exam: 08/26/17 Exam# [id number] Ordering Dr: Maddy Monterroso Abdomen And Pelvis [...] supp ort , CC: Maddy Monterroso NP Icicle Machine Operator: Signed 04-Aug-2016 Kidney and Bladder Result: Comments: See Note; NOTES: [facility] Imaging Services [address] [place] [address] Verdana 4d Kidney and Bladder MR#: [id number] Acct: [id number] Name: DAYANARA MURRAY Rep #: [id number] : 1960 F 55 From: Jamie Monique DO PCP: Maddy Monterroso Status: REG CLI Study: Kidney and Bladder Date of Exam: 08/04/16 Exam# [id number] Ordering Dr: Maddy Monterroso STUDY: RENAL ULTRASO [...] at 19:24 EST Tel , Service support [phone], CC: Maddy Monterroso Icicle Machine Operator: Signed Family History Unknown Family Member Name Dates Details Father Comments: at 63 [place], lung trauma Status: Active Social History Name Dates Details Alcohol Use Comments: Occasional alcohol use Status: Active Caffeine Use Comments: 2 QD Status: Active Exercise History Comments: None Status: Active Living Situation Comments: , Status: Active 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: Active No Drug Use Status: Active [...] Description Value Details :38 Bedside Glucose Comments: [facility] [address] [place], [place] [address] BEDSIDE GLU 98 mg/dL (Normal) Range: 70-110 Comments: MANAGEMENT OF PATIENT CARE PER NURSING PROTOCOL 02-Joi-313179:18 Bedside Glucose Comments: [facility] [address] [place] [id number] BEDSIDE GLU 94 mg/dL (Normal) Range: 70-110 Comments: MANAGEMENT OF PATIENT CARE PER NURSING PROTOCOL 08-Rgy-167709:09 Hemoglobin A1c Comments: [facility] [address] [place], [place], [id number] HGB A1C 6.2 % (Normal) Range: 4.2-6.3 61-Tyf-271410:59 Basic Metabolic Profile (BMP) Comments: [facility] [address] [place], [address] GAP 8 (Normal) Range: 5-15 [...] Comments: Please note revised GLUCOSE reference range lfpuvqhtm52/02/2018. 35-Gny-666694:59 CBC-Complete Blood Cnt No Diff Comments: [facility] [address] [place], [address] MPV 11.9 fL (Normal) Range: [...] 4.2-5.4 WBC 7.8 K/mm3 (Normal) Range: 4.4-11.0 00-Rbg-039061:59 Thyroid Stim Hormone (TSH) Comments: [facility] [address] [place], [address] TSH 1.31 {uIU/mL} (Normal) Range: 0.358-3.74 05-Cns-255694:59 Type AND Screen Comments: Surgery Date: 09/17/17Hx of Preganancy in last 3 Months NoEver experience any problems with transfusion(s)? NHx of Transfusion in last 3 Months NReason for Type AND Screen/Red Cells: SURGERYSURGI EJ PROCEDURE: [facility] [address] [place], [place], [id number] Antibody Screen NEGATIVE (Normal) BLOOD TYPE GEL A POSITIVE (Normal) 32-Ego-246986:52 HgA1C , Office (64436) HgA1C , Office 5.6 % (Normal) Range: 4.6 - 7.1 48-Aod-021385:52 Blood Glucose , Office (74586) Blood Glucose , Office 87 (Normal) 00-Gvr-955321:31 Urinalysis, Office (88396) UA - NITRITE Negative (Normal) URINE UROBILINGN OSMAN TIMED Normal mg/dL (Normal) UA - PROTEIN Negative mg/dL (Normal) UA - PH 5 (Abnormal) UA - BLOOD Negative (Normal) UA - SPECIFIC GRAVITY 1.020 (Normal) UA - KETONES Negative mg/dL (Normal) UA - BILIRUBIN Negative (Normal) UA - GLUCOSE Negative (Normal) 74-Ioi-21410:08 Basic Metabolic Profile (BMP) Comments: [facility] [address] [place], [place], [id number] GAP 8 (Normal) Range: 5-15 CO2 31.0 [...] 7-18 GLU 96 mg/dL (Normal) Range: 70-110 86-Bus-87666:08 CBC-Complete Blood Cnt No Diff Comments: [facility] [address] [place], [place], [id number] MPV 12.3 fL (Abnormal) Range: 6.2-12.0 PLT [...] (Normal) Range: 4.4-11.0 :17 HgA1C , Office (77006) Comments: 5.6 HgA1C , Office 5.6 % (Normal) Range: 4.6 - 7.1 :17 Blood Glucose , Office (96612) Comments: 98 Blood Glucose , Office 98 (Normal) 1-Srv-284729:42 Microscopic Examination Comments: PATIENT NOT FASTINGPERFORMED BY: Twijector [facility]roficiencyThe [facility] [id number] Bacteria Few (Normal) Mucus Threads Present (Normal) Cast Type Hyaline casts (Normal) Casts Present {/lpf} (Abnormal) Epithelial Cells (non renal) 0-10 {/hpf} (Normal) Range: 0 - 10 RBC 0-2 {/hpf} (Normal) Range: 0 - 2 WBC 0-5 {/hpf} (Normal) Range: 0 - 5 :42 MICROALBUMIN: CREATININE RATIO Comments: PATIENT NOT FASTINGPERFORMED BY: [employer]or [facility] [id number] ([id number]) AND (29364) Microalb/Creat Ratio 4.1 {mg/g_creat} (Normal) Range: 0.0-30.0 Microalbumin, Urine 3.5 ug/mL (Normal) Creatinine, Urine 84.7 mg/dL (Normal) 7-Qyr-066946:42 URINALYSIS, W/ MICRO Comments: PATIENT NOT FASTINGPERFORMED BY: [employer] [facility] [id number] Information: [id number] SRC: ([id number]) Microscopic Examination See below: (Normal) Comments: Microscopic was indicated and was performed. Nitrite, Urine Negative (Normal) Urobilinogen,Semi-Qn 0.2 mg/dL (Normal) Range: 0.2-1.0 Bilirubin Negative (Normal) Occult Blood Negative (Normal) Ketones Negative (Normal) Glucose Negative (Normal) Protein Negative (Normal) WBC Esterase 2+ (Abnormal) Appearance Clear (Normal) Urine-Color Yellow (Normal) pH 5.5 (Normal) Range: 5.0-7.5 Specific [place] 1.019 (Normal) Range: 1.005-1.030 2-Fqq-552563:42 URINE WILMER CULTURE-IDENTIFICATN Comments: PATIENT NOT FASTINGPERFORMED BY: MavizonGallup Indian Medical CenterQvaqnw0776 [facility] [id number] (42292) Result 1 MUG (Normal) Comments: Mixed urogenital flora1,000 Colonies/mL Urine Culture,Comprehensive Final report (Normal) :16 Urinalysis, Office (65297) UA - LEUKOCYTE ESTERASE Small (Normal) UA - NITRITE Negative (Normal) URINE UROBILINGN OSMAN TIMED Normal mg/dL (Normal) UA - PROTEIN Negative mg/dL (Normal) UA - PH 5 (Abnormal) UA - BLOOD Negative (Normal) UA - SPECIFIC GRAVITY 1.025 (Normal) UA - KETONES Negative mg/dL (Normal) UA - BILIRUBIN Negative (Normal) UA - GLUCOSE Negative (Normal) :20 Urinalysis, Office (26050) UA - LEUKOCYTE ESTERASE Negative (Normal) UA - NITRITE Negative (Normal) URINE UROBILINGN OSMAN TIMED Normal mg/dL (Normal) UA - PROTEIN Negative mg/dL (Normal) UA - PH 5 (Abnormal) UA - BLOOD Negative (Normal) UA - SPECIFIC GRAVITY 1.010 (Normal) UA - KETONES Negative mg/dL (Normal) UA - BILIRUBIN Negative (Normal) UA - GLUCOSE Negative (Normal) 89-Ksh-736908:09 Microscopic Examination Comments: PATIENT NOT FASTINGPERFORMED BY: [employer] [facility] [id number] Bacteria Few (Normal) Mucus Threads Present (Normal) Epithelial Cells (non renal) 0-10 {/hpf} (Normal) Range: 0 - 10 RBC 3-10 {/hpf} (Abnormal) Range: 0 - 2 WBC 11-30 {/hpf} (Abnormal) Range: 0 - 5 :09 URINE WILMER CULTURE-IDENTIFICATN Comments: PATIENT NOT FASTINGPERFORMED BY: MavizonJFK Medical CenterRoltpw1542 [facility] [id number] (13186) Antimicrobial MIHEAD (Normal) Comments: S = Susceptible; [...] mL (Abnormal) Urine Final report Culture,Comprehensive (Abnormal) 70-Qbo-668486:09 URINALYSIS (05675) Comments: PATIENT NOT FASTINGPERFORMED BY: MavizonGallup [facility] Medical CenterYamqfy4505 [facility] [id number] Information: SRC:UC Microscopic Examination See below: (Normal) Comments: Microscopic was indicated and was performed. Nitrite, Urine Negative (Normal) Urobilinogen,Semi-Qn 0.2 mg/dL (Normal) Range: 0.2-1.0 Bilirubin Negative (Normal) Occult Blood 1+ (Abnormal) Ketones Negative (Normal) Glucose Negative (Normal) Protein Negative (Normal) WBC Esterase 2+ (Abnormal) Appearance Clear (Normal) Urine-Color Yellow (Normal) pH 7.0 (Normal) Range: 5.0-7.5 Specific [place] 1.007 (Normal) Range: 1.005-1.030 56-Jtm-709829:29 Urinalysis, Office (76842) UA - LEUKOCYTE ESTERASE Small (Normal) UA - NITRITE Negative (Normal) URINE UROBILINGN OSMAN TIMED Normal mg/dL (Normal) UA - PROTEIN Negative mg/dL (Normal) UA - PH 7 (Normal) UA - BLOOD Non Hemolyzed Moderate (Normal) UA - SPECIFIC GRAVITY 1.015 (Normal) UA - KETONES Negative mg/dL (Normal) UA - BILIRUBIN Negative (Normal) UA - GLUCOSE Negative (Normal) 05-Ago-859859:06 URINE WILMER CULTURE-IDENTIFICATN Comments: PATIENT NOT FASTINGPERFORMED BY: MavizonJFK Medical CenterGzexks0489 [facility] [id number] Information: SRC:UC ([id number]) Result 1 MUG (Normal) Comments: Mixed urogenital flora1,000 Colonies/mL Urine Culture,Comprehensive Final report (Normal) 98-Vxh-991308:21 Urinalysis, Office (54717) UA - LEUKOCYTE ESTERASE Trace (Normal) UA - NITRITE Negative (Normal) URINE UROBILINGN OSMAN TIMED Normal mg/dL (Normal) UA - PROTEIN Negative mg/dL (Normal) UA - PH 7 (Normal) UA - BLOOD Negative (Normal) UA - SPECIFIC GRAVITY 1.020 (Normal) UA - KETONES Negative mg/dL (Normal) UA - BILIRUBIN Negative (Normal) UA - GLUCOSE Negative (Normal) 0-Aiz-571451:05 Blood Glucose , Office (83781) Comments: 76 Blood Glucose , Office 76 (Normal) 6-Yfa-178425:44 Urinalysis, Office (55934) UA - LEUKOCYTE ESTERASE Small (Normal) UA - NITRITE Negative (Normal) URINE UROBILINGN OSMAN TIMED Normal mg/dL (Normal) UA - PROTEIN Negative mg/dL (Normal) UA - PH 5 (Abnormal) UA - BLOOD Negative (Normal) UA - SPECIFIC GRAVITY 1.030 (Abnormal) UA - KETONES Negative mg/dL (Normal) UA - BILIRUBIN Negative (Normal) UA - GLUCOSE Negative (Normal) 87-Udi-784827:50 Blood Glucose , Office (28693) Blood Glucose , Office 102 (Normal) 71-Svt-912142:32 Hemoglobin A1c Comments: Test performed at:[facility] [address] [facility]. [place], [place] [address] HGB A1C 7.1 % (Abnormal) Range: 4.2-6.3 40-Hpn-251940:58 Blood Glucose , Office (90928) Blood Glucose , Office 99 (Normal) 64-Zyu-402442:49 ANTINUCLEAR ANTIBODIES DIRECT Comments: Test performed at:[facility] [address] [facility]. [place], [place] [address] TING-DIRECT Negative (Normal) Comments: Performed at: [facility] [address] [id number] Director: Rasheed Ziegler PhD, Phone: [phone] :[phone] Erythrocyte Sed Rate Comments: Test performed at:[facility] [address] [facility] [place] [address] SED RATE 10 mm/h (Normal) Range: 0-30 14-Jet-562291:49 Rheumatoid Factor Comments: Test performed at:[facility] [address] [place], [place] [address] RHEUMATOID FAC < 10.0 {IU/mL} (Normal) 76-Fwy-448211:49 Sjogren's Antibodies A/B Comments: Test performed at:[facility] [address] [place] [address] Anti-SS-B < 0.2 {AI} (Normal) Range: 0.0-0.9 Anti-SS-A < 0.2 {AI} (Normal) Range: 0.0-0.9 45-Vad-34549:27 Pathology Report Comments: PERFORMED BY: [employer] Cyto Pewak[address]40 [facility] [id number] BY: [facility] Dermatopathology Hucbdzc[address] [id number] Information: [id number] See MATER Comments: Material submitted: .SHAVE BIOPSY [...] SUBMITTEDENTIRELY IN A SINGLE CASSETTE.LMS/JASPathologist provided ICD-9:078.10CPT .649546 :05 HgA1C , Office (17820) Comments: 7.0 HgA1C , Office 7.0 % (Normal) Range: 4.6 - 7.1 :05 Blood Glucose , Office (41840) Comments: 93 Blood Glucose , Office 93 (Normal) 69-Ams-087467:25 HgA1C , Office (23621) HgA1C , Office 6.8 % (Normal) Range: 4.6 - 7.1 :19 HgA1C , Office (78997) HgA1C , Office 8.0 % (Abnormal) Range: 4.6 - 7.1 :19 Blood Glucose , Office (37103) Blood Glucose , Office 153 (Normal) Comments: non-fasting :58 HgA1C , Office (28350) HgA1C , Office 7.2 % (Abnormal) Range: 4.6 - 7.1 :34 URINE WILMER CULTURE-OSMAN COL Comments: PATIENT NOT FASTINGPERFORMED BY: LabCoJFK Medical CenterOyewzg6539 [facility] [id number] Information: SRC:UR [id number] COUNT (48361) Result 1 MUG (Normal) Comments: Mixed urogenital flora25,000-50,000 colony forming units per mL Urine Final report (Normal) Culture,Comprehensive 55-Jze-128096:40 Urinalysis, Office (38271) UA - LEUKOCYTE ESTERASE Negative (Normal) UA - NITRITE Negative (Normal) URINE UROBILINGN OSMAN TIMED Normal mg/dL (Normal) UA - PROTEIN Negative mg/dL (Normal) UA - BLOOD Negative (Normal) UA - SPECIFIC GRAVITY 1.025 (Normal) UA - PH 7 (Normal) UA - KETONES Negative mg/dL (Normal) UA - BILIRUBIN Negative (Normal) UA - GLUCOSE Negative (Normal) 83-Iqe-603636:21 Rapid Strep Test, Office (75236) Rapid Strep Test, Office Positive (Normal) 43-Lzf-786452:21 Rapid Flu (87795 x 2) Influenza A Ag negative a and b (Normal) 51-Sbn-808033:06 URINE WILMER CULTURE-OSMAN COL Comments: PATIENT NOT FASTINGPERFORMED BY: CB [facility] [address] [place] [id number] Information: SRC:UR [id number] COUNT (72387) Antimicrobial MIHEAD (Normal) Comments: S = Susceptible; [...] mL (Normal) Urine Final report Culture,Comprehensive (Normal) 70-Qpu-775194:46 Urinalysis, Office (79139) UA - BILIRUBIN Negative (Normal) UA - BLOOD Negative (Normal) UA - GLUCOSE Negative (Normal) UA - KETONES Moderate mg/dL (Normal) Comments: trace UA - LEUKOCYTE ESTERASE Large (Normal) UA - NITRITE Negative (Normal) UA - PH 7.5 (Normal) UA - PROTEIN Negative mg/dL (Normal) UA - SPECIFIC GRAVITY 1.025 (Normal) URINE UROBILINGN OSMAN TIMED Normal mg/dL (Normal) Comments: 1.0E.U/dL 6-Xzz-185335:52 CBCD,SMEAR DIFF RED CELL MORPH SeeNote {NORMAL} [...] 4.2-5.4 WBC 8.9 K/mm3 (Normal) Range: 4.4-11.0 4-Yan-079601:52 LIVER D BILI 0.11 mg/dL (Normal) Range: 0.00-0.30 ALT 45 U/L (Normal) Range: 12-78 T BILI 0.60 mg/dL (Normal) Range: 0.00-1.00 ALK P 67 U/L (Normal) Range: 50-136 AST 37 U/L (Normal) Range: 15-37 ALB 4.2 g/dL (Normal) Range: 3.4-5.0 T PROT 7.7 g/dL (Normal) Range: 6.4-8.2 9-Wvi-139868:14 LIVER/SPLEEN SCAN WITH FLOW Radiology Report See [...] Hand MDRasheed :56 Blood Glucose , Office (06857) Blood Glucose , Office 135 (Normal) :56 HgA1C , Office (11273) HgA1C , Office 6.0 % (Normal) Range: 4.6 - 7.1 :14 Rapid Strep Test, Office (76086) Rapid Strep Test, Negative (Normal) Office :00 CULTURE, THROAT See Note (Normal) Comments: Normal throat alexsandra isolated. No beta-hemolyticstreptococcus isolated. :24 VIT D,25 56951 19.7 ng/mL (Abnormal) Range: 32.0-100.0 Comments: Recent studies consider the lower limit of 32.0 ng/mL to carmen threshold for optimal health.Inderjit COLEMAN. J Nutr. 2004;135(2):317-22.Performed at: [facility] [address] Director: Mariel Deleon MD, Phone: [phone] HGB A1C 5.4 % (Normal) Range: 4.0-6.3 Comments: The methodology of Hgb A1C has changed to [place] significant changes in patient results are expected. The reference range remains the same. :01 TSH 1.49 {uIU/mL} (Normal) Range: 0.358-3.74 :07 Blood Glucose , Office (75985) Blood Glucose , Office 108 (Normal) :42 HgA1C , Office (87471) HgA1C , Office 5.8 % (Normal) Range: 4.6 - 7.1 :42 Blood Glucose , Office (56640) Blood Glucose , Office 99 (Normal) :22 HgA1C , Office (62100) HgA1C , Office 5.8 % (Normal) Range: 4.6 - 7.1 :22 Blood Glucose , Office (17805) Blood Glucose , Office 93 (Normal) :02 [...] T PROT 7.4 g/dL (Normal) Range: 6.4-8.2 0-Xsa-404858:42 URINALYSIS W/O MICRO (13672) UA - APPEARANCE clear (Normal) UA - [...] (Normal) UA - URINE SEDIMENT neg (Normal) 70-Lqb-076630:30 CH/GC DNA 97377 CHLAM DNA 26477 SeeNote (Normal) Comments: Result: Negative GC DNA PROBE SeeNote (Normal) Comments: Result: Negative No swab in specimen when received.Test valid for male urethral and female endocervicalspecimens only.Performed At: [address], [place] [id number] : AVEL PREP See Note {PER_HPF} Comments: FUNGAL ELEMENTS NONE SEEN 30 (Normal) : WET PREP See Note (Normal) Comments: MOTILE TRICH NONE SEENWBC 5-10 30 83-Wgh-318192:39 Urinalysis, Office (17026) Comments: ABN signed PE UA - BILIRUBIN [...] See Note (Normal) Comments: #1- STUDIES AT [employer] HAVE CONFIRMED THE OBSERVATIONS OF OTHERS WHO HAVE DEMONSTRATED THAT PREVOTELLA, PORPHYROMONAS AND BACTEROIDES SPECIES OTHER THAN B.FRAGILIS GROUP ARE ROUTINELY ROBIN CEPTIBLE TO CEFOXITIN, CHLORAMPHENICOL, AND METRONIDAZOLE AND ARE USUALLY RESISTANT TO PENICILLIN. TESTING PERFORMED AT [facility]. ORIGINAL RE PORT ON FILE IN LAB CONTAINS ADDITIONAL TEST SITE INFORMATION. ANAEROBIC CULT TO REF LAB 2 ANAEROBIC ORGANISMS ISOLATED AND IDENTIFIED. ORGANISM 1: PREVOTELLA BIVIA-ORGANISM 2: FINEGOLDIA JOSÉ :40 CH/GC [id number] CHLAM DNA SeeNote (Normal) Comments: Result: Negative GC DNA PROBE SeeNote (Normal) Comments: Result: Negative Performed At: [facility] [place], [place] [id number] :40 CULTURE, URINE URINE CULTURE See Note [...] TRICH RAREWBC 2-4 0 :04 Urinalysis, Office (41353) Comments: ABn signed UA - BILIRUBIN Negative [...] >=16 R VANCOMYCIN NON-EC $$ <=0.5 S 6-Ege-302120:37 Urinalysis, Office (45117) UA - BILIRUBIN Negative (Normal) UA - [...] Note (Normal) Comments: Culture exhibits no growth. 79-Kkq-424423:00 ROUTINE UA Comments: HOLD IN OE UNTIL [...] 1.49 INDETERMINANT > OR = 1.50 SUGGEST NM :42 HYSTERECT P-HYST (Normal) Comments: OPERATION Hysterectomy, [...] 01/01/07 ANTIBODY SCREEN NEGATIVE (Normal) Comments: COMMENTS: [facility] OR 12/31/06 :00 BLOOD TYPE PT A POSITIVE (Normal) Comments: COMMENTS: [facility] OR 12/31/06 :00 :00 CBCD Comments: COMMENTS: RESULTS TO DR. MONTOYA AND DR. EAST, [facility] OR 12/31/06 BAND 5 % (Normal) [...] 11.6-14.6 WBC 9.8 K/mm3 (Normal) Range: 4.4-11.0 83-Iyg-442177:00 COMP METABOLIC Comments: COMMENTS: RESULTS TO DR. [...] (Normal) PROTIME 12.1 s (Normal) Range: 10.6-13.2 49-Ysx-097032:00 PTT 23.5 s (Abnormal) Comments: COMMENTS: RESULTS TO DR. MONTOYA AND DR. EAST, PAT OR 12/31/06 Range: 24.6-36.6 :25 ANAEROBIC CULT See Note (Normal) Comments: AMOUNT GROWTH GROWTH ORGANISM 1: PREVOTELLA LEBRONIA- :25 CH/GC DNA [id number] CHLAM DNA [id number] SeeNote (Normal) Comments: Result: Negative GC DNA PROBE SeeNote (Normal) Comments: Result: Negative Test valid for male urethral and female endocervicalspecimens only.Performed At: [facility] [place], [place] [phone] :25 GENT CULT COMP GENT CULT COMP [...] >=16 R VANCOMYCIN NON-EC $$ <=0.5 S 92-Mpi-622490:57 Urinalysis, Office (55720) Comments: ABN signed UA - BILIRUBIN Negative (Normal) UA - BLOOD Hemolyzed Trace (Normal) UA - GLUCOSE Negative (Normal) UA - KETONES Negative mg/dL (Normal) UA - LEUKOCYTE ESTERASE Moderate (Normal) UA - NITRITE Negative (Normal) UA - PH 6.5 (Normal) UA - PROTEIN Negative mg/dL (Normal) UA - SPECIFIC GRAVITY 1.010 (Normal) URINE UROBILINGN OSMAN TIMED Normal mg/dL (Normal) 41-Drm-84142:00 ASPIRATION P-ASPS (Normal) Comments: OPERATION FNA right [...] mg/dL (Normal) Range: 34-200 Comments: Performed At: [address] [id number] :38 IRON+TIBC IRON SATURATION 4.0 % (Abnormal) Range: 15.0-55.0 IRON, SERUM 19 ug/dL (Abnormal) Range: 35-150 TIBC 481 ug/dL (Abnormal) Range: 250-450 :38 LDH 205 U/L (Abnormal) Range: 100-190 :38 RETIC 1.19 % (Normal) Range: 0.5-1.5 :55 GLU GTT-2 HOUR 110 mg/dL (Normal) Comments: 2HR GTT GLU 2 HR GLU GTT-2 HOUR from 515:[id number]. Range: 70-120 :55 GLU GTT-1 HOUR 162 mg/dL (Normal) Comments: 2HR GTT GLU 1 HR GLU GTT-1 HOUR from 0516:[id number]. Range: 120-170 :28 GLU GTT-30 min. 175 mg/dL (Abnormal) Comments: 2HR GTT GLU 1/2 HR GLU GTT-30 min. from 0516:R54514J. Range: 110-170 :46 CBCD,SMEAR DIFF ANISO 1+ [...] ORGANISM 1: MIXED GRAM POSITIVE ORGANISMS (Normal) 47-Pew-339781:46 GLU GTT-FASTING 88 mg/dL (Normal) Comments: 2HR GTT FASTING GLU GTT-FASTING from 0516:[id number]. Range: 70-110 Comments: GLUCOSE TOLERANCE TEST Reference Interval Non- Adults Fasting 70 - 110 30 minutes 110 - 170 1 hour 120 - 170 2 hour 70 - 120 3 hour 70 - 110 4 hour 70 - 110 5 hour 70 - 110 96-Nml-546389:46 LIPID CHOL 216 mg/dL (Abnormal) Comments: <200 [...] 0.2 EU/dl (Normal) Range: 0.2 - 1.0 83-Xso-312494:46 TSH 1.50 {uIU/mL} (Normal) Range: 0.34-4.82 :05 PELVIC (NON-PREG) (HP) Radiology Report See Note (Normal) Comments: Exam Number: [id number] THYROID ULTRASOUND HISTORYThyroid nodule. High resolution real [...] for review. Reported By: MELI YE M.D. 55-Udk-97557:05 THYROID () Radiology Report See Note (Normal) Comments: Exam Number: [id number] THYROID ULTRASOUND HISTORYThyroid nodule. High resolution real [...] for review. Reported By: MELI YE M.D. 64-Zdy-373961:15 Urinalysis, Office (55035) Comments: done-jjp UA - BILIRUBIN Negative (Normal) UA - BLOOD Negative (Normal) UA - GLUCOSE Negative (Normal) UA - KETONES Negative mg/dL (Normal) UA - LEUKOCYTE ESTERASE Negative (Normal) UA - NITRITE Negative (Normal) UA - PH 5.0 (Normal) UA - PROTEIN Negative mg/dL (Normal) UA - SPECIFIC GRAVITY 1.000 (Normal) URINE UROBILINGN OSMAN TIMED Normal mg/dL (Normal) 03-Rdv-219961:45 CULTURE, URINE URINE CULTURE See Note {CFU/mL} [...] : FOLLOW UP IN 4 WEEKS with [facility] to go over BS diary, diet [...] Indication: Urinary frequency Planned Observations LIPID PANEL (67609)Indication: Hypertension On: :26 Request CBC & PLATELETS (AUTO) (89949)Indication: Hypertension On: :26 Request CALCIFEDIOL (23055)Indication: Hypertension On: :26 Request METABOLIC PANEL, COMPREHENSIVE (04052)Indication: Hypertension On: 13-Apr-20188:25 Request HGB A1C (76065)Indication: Diabetes mellitus, controlled On: 22-Qlp-507056:33 Request CBC, Platelets & Auto Diff (45552)Indication: Hypertension On: 18-Jan-2018 Request Lipid Panel (40165)Indication: Hypertension On: 18-Jan-2018 Request Metabolic Panel, Comprehensive (04058)Indication: Hypertension On: 18-Jan-2018 Request Metabolic Panel, Comprehensive (09026)Indication: Diabetes mellitus, controlled On: 83-Xdi-434667:28 Request HGB A1C (52680)Indication: Diabetes mellitus, controlled On: 35-Kqa-418361:28 Request TSH (52805)Indication: Diabetes mellitus, controlled On: 93-Tuo-181175:50 Request Comments: mar 2017 URINALYSIS W MICROSCOPY (82788)Indication: Flank pain On: :09 Request URINE WILMER CULTURE-OSMAN COL COUNT (53644)Indication: Flank pain On: 11-Sep-20169:08 Request CALCIFEDIOL (22471)Indication: DEFICIENCY, VITAMIN D NOS On: :39 Request Comments: to be done December 2016 LIPID PANEL (92009)Indication: Hypercholesteremia On: :38 Request Comments: print to be done prior to next visit URINALYSIS, W/ MICRO (74012)Indication: Kidney stone on right side On: :36 Request HGB A1C (18424)Indication: Hypercholesteremia On: :49 Request Lipid Panel (44898)Indication: Diabetes mellitus, controlled On: :49 Request Metabolic Panel, Comprehensive (04167)Indication: Diabetes mellitus, controlled On: :48 Request TSH (94695)Indication: Diabetes mellitus, controlled On: :48 Request CBC, Platelets & Auto Diff (85813)Indication: Diabetes mellitus, controlled On: :48 Request HGB A1C (56881)Indication: Uncontrolled diabetes mellitus type 2 without complications On: :46 Request CALCIFEDIOL (00698)Indication: Uncontrolled diabetes mellitus type 2 without complications On: :46 Request TSH (28767)Indication: Uncontrolled diabetes mellitus type 2 without complications On: :46 Request CBC, Platelets & Auto Diff (77594)Indication: Uncontrolled diabetes mellitus type 2 without complications On: :46 Request Lipid Panel (39708)Indication: Uncontrolled diabetes mellitus type 2 without complications On: :46 Request Metabolic Panel, Comprehensive (82909)Indication: Uncontrolled diabetes mellitus type 2 without complications On: :46 Request Metabolic Panel, Comprehensive (15894)Indication: Kidney stone on right side On: :44 Request PT (PROTHROMBIN TIME) (66049)Indication: Preop examination On: :20 Request CBC, Platelets & Auto Diff (74797)Indication: Preop examination On: :20 Request CBC, Platelets & Auto Diff (07063)Indication: Preop examination On: :19 Request Metabolic Panel, Comprehensive (84800)Indication: Preop examination On: :19 Request Metabolic Panel, Basic (37948)Indication: Flank pain On: 83-Run-218585:43 Request Hemoglobin Glyclated (HGB A1C) (69063)Indication: Uncontrolled diabetes mellitus type 2 without complications On: 5-Eye-263876:04 Request CREATININE CLEARANCE (24232)Indication: Abdominal pain, acute, right upper quadrant On: 97-Woa-205257:54 Request Comments: STAT Hemoglobin Glyclated (HGB A1C) (08872)Indication: Uncontrolled diabetes mellitus type 2 without complications On: 08-Kla-833187:25 Request HEPATIC FUNCTION PANEL (47644)Indication: Hypercholesteremia On: 72-Bcc-320096:37 Request Comments: repeat November fasting TSH (THYROID STIMULATING HORMONE) (87755)Indication: Uncontrolled diabetes mellitus type 2 without complications On: 60-Eow-513142:47 Request CALCIFIDIOL (11277) VIT D 25Indication: Uncontrolled diabetes mellitus type 2 without complications On: 49-Cxa-749350:47 Request MICROALBUMIN: CREATININE RATIO (26995) AND (09189)Indication: Uncontrolled diabetes mellitus type 2 without complications On: 22-Idf-082246:47 Request METABOLIC PANEL, COMPREHENSIVE (07965)Indication: Uncontrolled diabetes mellitus type 2 without complications On: 85-Zjr-200760:47 Request LIPID PANEL (53051)Indication: Uncontrolled diabetes mellitus type 2 without complications On: 00-Ifp-477896:47 Request Metabolic Panel, Comprehensive (34598)Indication: Uncontrolled diabetes mellitus type 2 without complications On: 69-Xlx-170016:44 Request Lipid Panel (51676)Indication: Uncontrolled diabetes mellitus type 2 without complications On: 57-Vyq-025639:44 Request Blood Glucose , Office (23136)Indication: Uncontrolled diabetes mellitus type 2 without complications On: 84-Hgx-030435:25 Request BLD CNT, MANUAL CELL COUNT, EACH (21966)Indication: Thyroid nodule On: 5-Nqs-332670:56 Request URINALYSIS, AUTOMATED W/ MICRO (24812)Indication: Thyroid nodule On: 5-Lqw-133021:56 Request 24HR URINE CREATININE (13841)Indication: Thyroid nodule On: 9-Vup-115986:56 Request MICROALBUMIN, TIMED 24 UR 874652 (02353)Indication: Thyroid nodule On: 2-Qyu-967986:56 Request CALCIFEDIOL (60154)Indication: Thyroid nodule On: 2-Dvm-025785:55 Request Metabolic Panel, Comprehensive (00494)Indication: Uncontrolled diabetes mellitus type 2 without complications On: 4-Aew-955288:55 Request TSH (THYROID STIMULATING HORMONE) (40187)Indication: Thyroid nodule On: 9-Jpl-215188:54 Request LIPID PANEL (14952)Indication: GERD (gastroesophageal reflux disease) On: 0-Wmw-354151:52 Request CBC WITH MANUAL DIFF (86847)Indication: Hypertension On: 63-Qkm-762079:00 Request Vitamin D Hydroxy (35588)Indication: Depression On: :59 Request TSH (89586)Indication: Depression On: :59 Request URINALYSIS, W/ MICRO (06143)Indication: Hypertension On: :59 Request MICROALBUMIN: CREATININE RATIO (45155) AND (54187)Indication: Hypertension On: :59 Request METABOLIC PANEL, COMPREHENSIVE (77130)Indication: Hypertension On: :59 Request LIPID PANEL (02146)Indication: Hypertension On: :59 Request CBC, Platelets & Auto Diff (56673)Indication: Fatigue On: :29 Request Metabolic Panel, Basic (68968)Indication: Fatigue On: 74-Tva-963346:29 Request WILMER CULTURE-OTHER (73268)Indication: Pharyngitis, acute On: 30-Shy-751571:25 Request Influenza A&B Viral Culture (82092)Indication: Pharyngitis, acute On: 60-Qsz-330968:21 Request T4, FREE (THYROXINE) (97473)Indication: Thyroid nodule On: 67-Drh-077924:01 Request FREE TRIDOTHYRONINE (T3) (96551)Indication: Thyroid nodule On: 23-Obv-180280:00 Request TSH (THYROID STIMULATING HORMONE) (89638)Indication: Thyroid nodule On: 22-Qms-941411:00 Request HEPATIC FUNCTION PANEL (55979)Indication: Hepatomegaly On: 8-Snm-395815:13 Request CBC with manual diff (74787)Indication: Hepatomegaly On: 3-Llz-339142:13 Request HEPATIC FUNCTION PANEL (16737)Indication: Splenomegaly On: 8-Rui-752455:57 Request CBC with manual diff (73571)Indication: Splenomegaly On: 6-Kit-709192:57 Request CCP ANTIBODY (38990)Indication: Pain in unspecified joint On: :10 Request SED RATE ERYTHROCYTE (81102)Indication: Pain in unspecified joint On: 15-Jga-08705:10 Request C-REACTIVE PROTEIN (74538)Indication: Pain in unspecified joint On: :10 Request RHEUMATOID FACTOR-QUANT (18705)Indication: Pain in unspecified joint On: :10 Request TING (ANTINUCLEAR ANTIBODY) (50521)Indication: Pain in unspecified joint On: :10 Request CBC WITH MANUAL DIFF (79267)Indication: Pain in unspecified joint On: :10 Request METABOLIC PANEL, COMPREHENSIVE (49194)Indication: Pain in unspecified joint On: :10 Request WILMER CULTURE-OTHER (24922)Indication: Pharyngitis, acute On: 35-Qop-651966:14 Request Hemoglobin Glyclated (HGB A1C) (42142)Indication: Abnormal glucose tolerance test On: 06-Sep-20109:52 Request CALCIFEDIOL (44129)Indication: Abnormal glucose tolerance test On: :15 Request TSH (72640)Indication: Fatty liver On: :11 Request LIPID PANEL (71161)Indication: Hypercholesteremia On: 01-Zlt-365978:54 Request CBC WITH MANUAL DIFF (54934)Indication: Hypertension On: 31-Mtj-019501:54 Request METABOLIC PANEL, COMPREHENSIVE (42244)Indication: Elevated LFTs On: 29-Vwq-757458:54 Request MICROALBUMIN: CREATININE RATIO (46938) AND (30958)Indication: Abnormal glucose tolerance test On: 46-Bua-318513:54 Request METABOLIC PANEL, COMPREHENSIVE (37464)Indication: Hypertension On: 33-Byq-626152:56 Request LIPID PANEL (78926)Indication: Hypercholesteremia On: 06-Afg-592387:56 Request SED RATE ERYTHROCYTE (77897)Indication: Pain in unspecified hip On: 11-Iya-669116:55 Request C-REACTIVE PROTEIN (55359)Indication: Pain in unspecified hip On: 56-Lnk-185738:55 Request RHEUMATOID FACTOR-QUANT (78086)Indication: Pain in unspecified hip On: :55 Request TING (ANTINUCLEAR ANTIBODY) (50446)Indication: Pain in unspecified hip On: :55 Request MICROALBUMIN: CREATININE RATIO (98816) AND (24098)Indication: Other specified abnormal findings of blood chemistry On: :54 Request GLUCOSE TOLERANCE TEST (GTT) 2 hour (21405)Indication: Other specified abnormal findings of blood chemistry On: :54 Request LIPID PANEL (28881)Indication: Hypercholesteremia On: :17 Request METABOLIC PANEL, COMPREHENSIVE (94943)Indication: Elevated LFTs On: :17 Request METABOLIC PANEL, COMPREHENSIVE (16229)Indication: Elevated LFTs On: :15 Request HEPATITIS A, B & C PANELSIndication: Elevated LFTs On: :15 Request LIPID PANEL (05960)Indication: Low HDL (under 40) On: 9-Nsc-910940:52 Request HEPATIC FUNCTION PANEL (23407)Indication: Elevated LFTs On: 5-Amo-995178:52 Request MICROALBUMIN: CREATININE RATIO (03977) AND (34172)Indication: Hypertension On: : Request CBC WITH MANUAL DIFF (75008)Indication: Chronic blood loss anemia On: 52-Jst-168603:23 Request METABOLIC PANEL, COMPREHENSIVE (18205)Indication: Hypopotassemia On: 87-Snr-259406:22 Request HEPATIC FUNCTION PANEL (34833)Indication: Hypercholesteremia On: 55-Dhp-402731: Request LIPID PANEL (34948)Indication: Hypercholesteremia On: 18-Bcu-145788: Request LIPID PANEL (75244)Indication: Hypercholesteremia On: : Request MICROALBUMIN: CREATININE RATIO (83856) AND (06195)Indication: Hypertension On: : Request URINALYSIS W/O MICRO (77953)Indication: Hypertension On: : Request TSH (18589)Indication: Thyroid nodule On: : Request METABOLIC PANEL, COMPREHENSIVE (17961)Indication: Hypertension On: :26 Request CBC WITH MANUAL DIFF (27814)Indication: Hypertension On: :26 Request LIPID PANEL (13468)Indication: Low HDL (under 40) On: :42 Request CBC WITH MANUAL DIFF (35635)Indication: Chronic blood loss anemia On: :42 Request METABOLIC PANEL, COMPREHENSIVE (84724)Indication: Hypertension On: :42 Request METABOLIC PANEL, COMPREHENSIVE (16052)Indication: Hypertension On: :56 Request LIPID PANEL (68200)Indication: Low HDL (under 40) On: :56 Request CBC WITH MANUAL DIFF (16750)Indication: Chronic blood loss anemia On: :55 Request WET MOUNT WITH AVEL (33749)Indication: Vaginal discharge On: :09 Request CULTURE, GONOCOCCUS ([id number])Indication: Vaginal discharge On: :09 Request CULTURE CHLAMYDIA (51044)Indication: Vaginal discharge On: 73-Mfz-894073:09 Request Thin prep Pap (18240)Indication: Well woman exam On: :08 Request WET MOUNT ([id number])Indication: Vaginal discharge On: :37 Request Comments: with avel CULTURE, GONOCOCCUS (87434)Indication: Vaginal discharge On: :37 Request CULTURE CHLAMYDIA ([id number])Indication: Vaginal discharge On: :37 Request BACT CULTURE ANY-ANAEROBIC (98767)Indication: Vaginal discharge On: :37 Request WILMER CULTURE-OTHER (48271)Indication: Vaginal discharge On: :37 Request URINE WILMER CULTURE (OSMAN COL COUNT) ([id number])Indication: dysuria On: :36 Request LIPID PANEL (88045)Indication: Hypercholesteremia On: :36 Request CBC WITH MANUAL DIFF ([id number])Indication: Chronic blood loss anemia On: :34 Request METABOLIC PANEL, COMPREHENSIVE (55648)Indication: Hypopotassemia On: 4-Mbi-615912:34 Request WET MOUNT WITH AVEL (39996)Indication: Vaginal discharge On: :11 Request BACT CULTURE ANY-ANAEROBIC (14930)Indication: Vaginal discharge On: :11 Request WILMER CULTURE-OTHER ([id number])Indication: Vaginal discharge On: :10 Request URINE WILMER CULTURE-IDENTIFICATN (91367)Indication: dysuria On: :09 Request CBC WITH MANUAL DIFF (13601)Indication: Chronic blood loss anemia On: :59 Request Comments: 1 month LIPID PANEL (18986)Indication: Hypercholesteremia On: :59 Request Comments: 3 mos HEPATIC FUNCTION PANEL (80940)Indication: Hypercholesteremia On: :59 Request URINE WILMER CULTURE (OSMAN COL COUNT) (12043)Indication: Urinary frequency On: :33 Request MICROALBUMIN URINE QUANT (37771)Indication: Hypertension On: :32 Request URINALYSIS W/O MICRO (84379)Indication: Hypertension On: :32 Request TSH (42282)Indication: Hypertension On: :32 Request METABOLIC PANEL, COMPREHENSIVE (18804)Indication: Hypertension On: :32 Request LIPID PANEL (38364)Indication: Hypertension On: 54-Gli-185000:32 Request CBC WITH MANUAL DIFF (69492)Indication: Hypertension On: :32 Request TSH (THYROID STIMULATING HORMONE) (30102)Indication: Thyroid nodule On: 51-Rcx-882551:32 Request GLUCOSE TOLERANCE TEST (GTT) 2 hour (26055)Indication: Urinary frequency On: 01-Avf-151401:31 Request Planned Encounters Medical; 3 Month FU - LMOM to reschedule On: 10-May-2018 16:30 [facility] Maddy Monterroso CNP, CNP, Mary E Planned Procedures DIAGNOSTIC DIGITAL MAMMOGRAPHY OF On: 16-Apr-2018 Intent RIGHT BREAST ([id number])By: Maddy Monterroso CNP, CNP, Mary E MAMMOGRAM BREAST RIGHT DIAGNOSTIC On: 07-Oct-2017 Intent (70093)By: Maddy Monterroso CNP, CNP, Mary E DEXA SCAN AXIAL SKELETON (02282)By: On: 20-Jul-2017 Intent Kriss LYNCH [place] Kriss LYNCH [place] SCREENING DIGITAL TOMOSYNTHESIS OF On: 20-Jul-2017 Intent BREAST (17403)By: Kriss LYNCH KeyanaPam Monterroso CNP [place] CT - Abdomen & Pelvis Stone On: 20-Jul-2017 Intent ProtocolBy: Kriss LYNCH [place] Kriss LYNCH [place] MAMMOGRAM BREAST BILATERAL SCREENING On: 11-Sep-2016 Intent DIGITAL ([id number])By: Kriss LYNCH [place] Kriss LYNCH [place] Ultrasound - RenalBy: Kriss LYNCH Maddy On: 03-Jun-2016 Intent E Kriss LYNCH [place] ELECTROCARDIOGRAM, COMPLETE (ECG) On: 03-Jun-2016 Intent (00480)By: Grace Nolasco LPN Comments: sinus rhythm TRANSVAGINAL ULTRASOUND (34731)By: On: 21-Mar-2016 Intent Kriss LYNCH KeyanaPam Monterroso CNP [place] Ultrasound - PelvisBy: Kriss LYNCH, On: 17-Mar-2016 Intent Maddy Orozco Kriss LYNCH [place] Ultrasound - RenalBy: Kriss LYNCH Maddy On: 17-Mar-2016 Intent E Kriss LYNCH [place] MAMMOGRAM, SCREENING, BOTH BREAST On: 06-Aug-2015 Intent ([id number])By: Kriss LYNCH KeyanaPam Monterroso CNP [place] Ultrasound - PelvisBy: Kriss LYNCH, On: 27-Jun-2015 Intent Maddy Orozco Kriss LYNCH [place] Comments: if done at [facility] please send to [facility] and Dr. [place] CT - Abdomen & Pelvis (IV Contrast On: 11-Jun-2015 Intent Needed)By: Maddy Monterroso CNP, CNP [place] Bone Density StudyBy: Maddy Monterroso CNP On: 23-Apr-2015 Intent E Maddy Monterroso CNP BIOPSY OF SKIN LESION, SINGLE On: 02-Oct-2014 Intent ([id number])By: Maddy Monterroso CNP, CNP, Mary E REMOVAL OF SKIN TAGS, UP TO 15 On: 02-Oct-2014 Intent (70879)By: Ciesa FRESH FOODS CLERK, [place] Ciesa FRESH FOODS CLERK, [place] CALCULATED BMI ABOVE THE UPPER On: 24-Jul-2014 Intent PARAMETER AND A FOLLOW-UP PLAN WAS DOCUMENTED IN THE MEDICAL RECORD ([id number])By: Kriss LYNCH Maddy Monterroso CNP Maddy Orozco HG A1C LEVEL < 7.0% (3044F)By: Kriss On: 24-Jul-2014 Intent Maddy LYNCH CNP, Mary E EKG (90230)By: Leyla Birch DO On: 12-Sep-2013 Intent Comments: nsr no acute chg SPECIMEN HANDLING/TRANSPORT On: 12-Sep-2013 Intent (24622)By: Kriss LYNCH Maddy Orozco Amparoivana CRIS Maddy Orozco Aerosol Treatment (12231)By: Kriss On: 24-Jun-2013 Intent Maddy LYNCH CNP, Mary E Aerosol Treatment (08651)By: Kriss On: 14-Jun-2013 Intent Maddy LYNCH CNP, Mary E SPECIMEN HANDLING/TRANSPORT On: 31-May-2013 Intent (63507)By: Bibi Jain LPN Ultrasound - ThyroidBy: Kriss LYNCH, On: 28-Feb-2013 Intent Maddy Orozco Amparoivana LYNCH Maddy Orozco Nuclear Medicine - OtherBy: Kriss On: 06-Jun-2011 Intent Maddy LYNCH CNP, Mary E Comments: LIVER-SPLEEN SCAN nuclear medicine CT - Abdomen & PelvisBy: Kriss LYNCH, On: 28-Feb-2011 Intent Maddy Orozco Amparodavidtripp LYNCH Maddy Orozco Breast Screening - BilateralBy: Fast On: 05-Jun-2010 Intent DO Ramonita A Ultrasound - ThyroidBy: Brayden JACKSON, On: 05-Jun-[address] - Brain/HeadBy: Fast DO Ramonita A On: 04-Jun-2010 Intent Radiology - Knee - Right - Weight On: 25-Feb-2010 Intent BearingBy: Fast DO, Ramonita A Radiology - Lumbar SpineBy: Brayden DO, On: 21-Dec-2009 Intent Ramonita A EKG (50744)By: Tashia Casiano On: 15-Oct-2009 Intent Comments: ekg showed normal sinus rhythym, normal axis, no acute st/t wave changes Ultrasound - LiverBy: Brayden JACKSON Ramonita On: 16-Jul-2009 Intent A Radiology - Thoracic SpineBy: Eyal On: 23-Apr-2009 Intent Leyla JACKSON Radiology - Lumbar SpineBy: Eyal On: 23-Apr-2009 Intent Leyla JACKSON Radiology - Hand - RightBy: Brayden JACKSON, On: 09-Apr-2009 Intent Ramonita A Comments: attn right thumb MAMMOGRAM, SCREENING, BOTH BREASTS On: 26-Dec-2008 Intent ([id number])By: Ramonita East DO DXA, BONE DENSITY, AXIAL SKELETON On: 26-Dec-2008 Intent (37309)By: Ramonita East DO A Ultrasound - ThyroidBy: Fast DO, On: 05-Sep-2008 Intent Ramonita A EKG (11825)By: Tashia Casiano On: 05-Sep-2008 Intent Comments: ekg showed normal sinus rhythym, normal axis, no acute st/t wave changes MAMMOGRAM, SCREENING, BOTH BREASTS On: 17-Feb-2007 Intent ([id number])By: NATALEE SCHMITZ CNP Ultrasound - PelvisBy: Brayden JACKSON Ramonita On: 21-Oct-2006 Intent A Ultrasound - ThyroidBy: [...] Diabetes mellitus, controlled : DISCONTINUED - CALCIFEDIOL (72874) Indication: Diabetes mellitus, controlled Diabetes mellitus, controlled : DISCONTINUED - HGB A1C (86493) Indication: Diabetes mellitus, controlled DEFICIENCY, VITAMIN D NOS : DISCONTINUED - CALCIFEDIOL (94370) Indication: DEFICIENCY, VITAMIN D NOS Hypercholesteremia : DISCONTINUED - LIPID PANEL (76592) Indication: Hypercholesteremia Hypercholesteremia : DISCONTINUED - LIPID PANEL (19856) Indication: Hypercholesteremia DEFICIENCY, VITAMIN D NOS : DISCONTINUED - CALCIFEDIOL (99019) Indication: DEFICIENCY, VITAMIN D NOS Kidney stone [...] : Patient Instructions Indication: Bleeding gums Encounters Annotation/Addendum On: 16-Apr-2018 15:23 Encounter Diagnosis: Abnormal mammogram End: 16-Apr-2018 15:26 [facility] Lab Order On: 13-Apr-2018 8:22 Encounter Diagnosis: [...] like bra stuck her. Ultrasound done at [facility] Encounter Diagnosis: Hypertension, Flank pain End: 17-Mar-2016 [...] for Follow up ER: Had xray in [facility] rt lower quad forund constipation given [...] ). Patient has been compliant with instructions. Jos End: 22-Jan-2015 16:32 t medication use: no [...] inf). Patient has been compliant with instructions. Curren End: 12-Sep-2013 17:32 t medication use: no [...] to go up on meds-- she saw [facility] nov- told her come back in year-, [ADDITIONAL [...] back is feeling mariangel r- she saw [facility] for her thumb- they are going to [...] for chronic medical issues: she went to [facility] due to allergies-- she had a [...]
--- OUTSIDE RECORDS SUMMARY | 2018-09-24 05:40 | XMS RPT_ITS | Continuity of Care Document ---
:1960 Author Organization [facility] Address [address] [facility] [address] [place] [address] Phone Care Team Providers Name Role Phone Kriss CRISMaddy Unavailable Dr. Cortez Anna Unavailable Wild JOHNSON, Talita Bonilla Unavailable Miah JOHNSON, Romaine Baldwin Unavailable Dr. Baljit Miner Unavailable Dr. Bob Camara Unavailable Grace Nolasco LPN Unavailable Unavailable Jany Moreau Unavailable Unavailable Zandra Kurger Unavailable Unavailable Unavailable Unavailable Problems Name Dates Details Abdominal pain (R10.9, 789.00) Comments: Rt lower CT reviewed 6cm adnexal cyst Status: Active Abnormal mammogram (R92.8, 793.80) Status: Active Adnexal cyst (N94.9, 625.8) Comments: CT done [facility] 6cm Adnexal cyst seeing Tezano Status: Active [...] 193) Comments: removed by Dr. Kelton Owens at [facility] on on thyriod hormone replacemnt Status: Active [...] days Quantity: 90 {Tablet} Refills: 3 Ordered:12-Nov-2017 Amparodavidtripp LYNCH Maddy Trinidadtripp LYNCH Maddy Orozco Start : 12-Nov-2017 Active SHAY CONTOUR TEST (In Vitro Strip) 1 (one) Strip Strip two times daily for 0 days Quantity: 1 {Bottle} Refills: 3 Ordered:18-Jun-2015 Amparoivana CRIS Maddy Muniz CRIS Maddy Orozco Start : 18-Jun-2015 Active Comments:Dx: 250.0 Shay Microlet Lancets Miscellaneous 1 (one) Misc Misc bid as directed for 0 days Quantity: 1 {Box} Refills: 6 Ordered:28-Jan-2016 Amparodavidtripp LYNCH Maddy Muniz CRIS Maddy Orozco Start : 28-Jan-2016 Active Comments:DX: 790.22 Lancets Ultra Fine Miscellaneous 1 (one) Misc bid for 0 days Quantity: 60 {QS} Refills: 0 Ordered:05-Sep-2016 Jaydentripp LYNCH, Maddy Muniz CRIS Maddy Orozco Start : 05-Sep-2016 Active LEVOTHYROXINE SODIUM, 137MCG (Oral Tablet) 1 (one) Tablet daily for 0 days Quantity: 90 {Tablet} Refills: 3 Ordered:31-Jul-2015 Sandra Oseguera MD Start : 31-Jul-2015 Active Lisinopril 10 MG Oral Tablet 1 (one) Tablet daily for 0 days Quantity: 90 {Tablet} Refills: 2 Ordered:19-Oct-2017 Kriss LYNCH, Maddy Castellanos CNP Start : 19-Oct-2017 Active Medrol 4 MG Oral Tablet Therapy Pack 1 (one) Milligram TAD for 0 days Quantity: 1 {Package} Refills: 0 Ordered:10-May-2018 Maddy Monterroso CNP, CNP, Mary E Start : 10-May-2018 Active Comments:with food MetFORMIN HCl ER 500 MG Oral Tablet Extended Release 24 Hour 1 (one) Tablet ER 24HR Tablet ER 24HR at lunch for 0 days Quantity: 90 {Tablet} Refills: 3 Ordered:03-Dec-2017 Kriss LYNCH, Maddy Castellanos CNP Start : 03-Dec-2017 Active OneTouch Ultra Blue In Vitro Strip 1 (one) Strip bid for 0 days Quantity: 60 {Strip} Refills: 0 Ordered:05-Sep-2016 Maddy Monterroso CNP, CNP, Mary E Start : 05-Sep-2016 Active VITAMIN C, 500MG [...] Refills: 0 Ordered:23-Jun-2016 Kriss LYNCH, Maddy Muniz WAGON DRIVER, Maddy Orozco Start : 23-Jun-2016 End : 30-Jun-2016 Inactive CITALOPRAM HYDROBROMIDE, 20MG (Oral Tablet) 1 Tablet daily for 0 days Quantity: 90 {Tablet} Refills: 1 Ordered:31-May-2013 Kriss LYNCH, Maddy Muniz [facility], Maddy Orozco Start : 31-May-2013 End : 31-May-2013 Inactive DOCUSATE SODIUM, 100MG (Oral Capsule) 1 (one) Capsule bid for 30 days Quantity: 30 {Capsule} Refills: 0 Ordered:05-Nov-2015 Kriss LYNCH, Maddy Muniz [facility], Maddy Orozco Start : 05-Nov-2015 End : 05-Dec-2015 Inactive DOXYCYCLINE HYCLATE, 100MG (Oral Tablet) 1 (one) Tablet Twice daily for 0 days Quantity: 60 {Tablet} Refills: 0 Ordered:06-Sep-2010 Bibi Jain LPN Start : 23-Apr-2009 End : 06-Sep-2010 Inactive DRISDOL, [id number] (Oral Capsule) 1 Capsule twice weekly for [...] days Quantity: 74 {Tablet} Refills: 0 Ordered:25-Jan-2018 Slarb Grace OLIVAREZ Start : 15-Dec-2016 End : 25-Jan-2018 Inactive [...] days Quantity: 1 Kit Refills: 0 Ordered:05-Sep-2016 Maddy Monterroso CNP, CNP Keyana Start : 05-Sep-2016 End : 04-Dec-2016 Inactive PREDNISONE, 10MG (Oral Tablet) 1 (one) Tablet bid x 3 days, then 1daily x 3 days, then 1/2 x 3days for 0 days Quantity: 11 {Tablet} Refills: 0 Ordered:12-Sep-2013 Cristobal OLIVAREZ Bibi Start : 24-Jun-2013 End : 12-Sep-2013 Inactive Comments:take with food PREVACID, 30MG (Oral Capsule Delayed Release) [address] QD for 30 days Quantity: 30 {Capsule_DR} Refills: 0 Ordered:02-Jul-2012 Maddy Monterroso CNP, CNP Keyana Start : 02-Jul-2012 End : 01-Aug-2012 Inactive Comments:Pt needs apt before more refills PRILOSEC OTC, 20MG (Oral Tablet Delayed Release) 1 (one) Tablet DR daily for 30 days Refills: 0 Ordered:31-Jul-2015 Maddy Monterroso CNP, CNP Keyana Start : 27-Jun-2015 End : 27-Jul-2015 Inactive [...] days Quantity: 30 {Capsule} Refills: 0 Ordered:20-Jul-2017 Slarb FRAME CLEANER, Grace Start : 15-Dec-2016 End : 20-Jul-2017 Inactive Vitamin D3 2000 UNIT Oral Capsule 1 (one) Capsule daily for 0 days Quantity: 30 {Capsule} Refills: 0 Ordered:19-May-2016 Kriss LYNCH, Maddy Cristy LYNCH, Keyana Start : 11-Feb-2016 End : 19-May-2016 Inactive ATORVASTATIN CALCIUM, 40MG (Oral Tablet) 1 (one) Tablet daily for 0 days Quantity: 90 {Tablet} Refills: 3 Ordered:23-Apr-2015 Slarb FRAME CLEANER, Grace Start : 22-Jan-2015 End : 23-Apr-2015 Discontinued Bromfed DM 30-2-10 MG/5ML Oral Syrup 10 Milliliter q4hr prn for 0 days Quantity: 120 {Milliliter} Refills: 0 Ordered:08-Aug-2016 Slarb FRAME CLEANER, Grace Start : 03-Jun-2016 End : 08-Aug-[address] [facility] Oral Capsule 1 (one) Capsule Capsule daily for 0 days Quantity: 30 {Capsule} Refills: 0 Ordered:11-Feb-2016 Slarb FRAME CLEANER, Grace Start : 11-Jun-2015 End : 11-Feb-2016 Discontinued DIAZEPAM, 5MG (Oral Tablet) 1 Tablet q8hrs prn for 30 days Quantity: 30 {Tablet} Refills: 0 Ordered:21-Dec-2009 Ramonita East DO Start : 21-Dec-2009 End : 21-Dec-2009 Discontinued DOCUSATE SODIUM, 100MG (Oral Capsule) 1 cap bid, prn for 0 days Refills: 0 Ordered:09-Aug-2007 Tashia Casiano End : 09-Aug-2007 Discontinued ERGOCALCIFEROL, 73533FQOQ (Oral Capsule) 1 (one) Capsule Capsule twice weekly for 0 days Quantity: 24 {Capsule} Refills: 0 Ordered:22-Jan-2015 Grace Nolasco LPN Start : 23-Jan-2014 End : 22-Jan-2015 Discontinued FERROUS SULFATE EC, 325MG (PO EC Tab) 1 tab bid for 0 days Refills: 0 Ordered:19-Apr-2007 Tashia Casiano Start : 19-Apr-2007 End : 19-Apr-2007 Discontinued [...] Quantity: 9 {Tablet} Refills: 0 Ordered:27-Nov-2006 Bibi aJin LPN Start : 27-Nov-2006 End : 11-Jan-2007 [...] no obvious cause of spleenomegaly, sent to [employer] and food exposures from work Status: Resolved as of 12-Sep-2013 Strep pharyngitis (034.0) Status: Inactive as of 14-Apr-2017 Thumb pain (M79.646, 729.5) Status: Inactive as of 03-Jun-2016 Thyroid mass (246.9) Comments: enlarging, has seen Emmalena in past [place] from [facility] thyroid adenoma Status: Inactive as of 03-Jun-2016 [...] Lead Electrocardiogram Result: Comments: See Note; NOTES: Cardiovascular Services [address] [place] [address] 12 Lead EKG 09/16/17 1620 MR#: [id number] Acct: [id number] Name: DAYANARA MURRAY Rep #: [id number] : 1960 56 From: Rod Bender MD Attending Dr: Tracey Barnhart MD Status: [facility] Ordering Dr: Tracey Barnhart MD Date: 09/16/17 Location: [facility] Sex: F C Admitted: Test Reason : PRE OP Blood Pressure : / mmHG Vent. Rate : 073 BPM Atrial Rate : 073 BPM P- R Int : 144 ms QRS Dur : 084 ms QT Int : 400 ms P-R-T Axes : 046 065 055 degrees QTc Int : 440 ms Normal sinus rhythm Norm al ECG Confirmed by ROD BNEDER MD ([id number]), assistant editor ALEJANDRA AGOSTO ([id number]) on 09/18/2017 1:36:25 PM Referred By: Tracey Barnhart Confirmed By:ROD BENDER MD 09/18/17 1336 Date Rod Bender MD CC: Maddy Monterroso NP; Tracey Barnhart MD Signed 17-Sep-2017 Operative Report Result: Comments: See Note; NOTES: Medical Records Department [address] [place] [address] Operative Report 09/17/17 1454 MR#: [id number] Acct: [id number] Name: DAYANARA MURRAY Rep #: [id number] : 1960 56 From: Tracey Barnhart MD PCP: Maddy Monterroso NP Status: REG SDC Y Location: [place] [address] Report of Operation Date of Procedure: 09/17/17 Pre-Operative Diagnosis: compl ex right adexexal mass Post-Operative Diagnosis: Pelvic mass, adhesions of colon to anterior abdominal wall and vaginal cuff Surgery/Procedure Performed:: Diagnostic laparascopy, cystoscopy Description of Surgical Findings:: pelvic mass in midline over bladder and vaginal cufff, ovary not well defined but under adehsions. Adhesions of colon to anterior abdominal wall analog circuit designer: Cardenas analog circuit designer: Zaki [email or web address] Type of Anesthesia:: General Anesthesiologist: Judit Sahni [...] further intervention we will recommend consultation with [facility]AL INSPECTOR oncology at a tertiary care center. The [...] Date Tracey Barnhart MD CC: Maddy Monterroso LIP AND GATE BUILDER; Tracey Barnhart MD Signed 17-Sep-2017 Operative Report Result: Comments: See Note; NOTES: Medical Records Department [address] [place] [address] Operative Report 09/17/17 1310 MR#: [id number] Acct: [id number] Name: MODESTODAYANARA Rep #: [id number] : 1960 56 From: Tracey Barnhart MD PCP: Maddy Monterroso NP Status: REG SDC Y Location: [place] [address] ADDENDUM by Tracey Barnhart MD on 09/17/17 at 1454 Code Visit DISREGARD THIS OPERATIVE REPORT< ENTERED ERRONEOUSLY> SEE REPORT FROM APPROX 1500 for today's surgery 09/17/17 1454 <Electronically signed by Tracey Barnhart MD> Date Tracey Barnhart MD cc: Maddy Monterroso NP; Tracey Barnhart MD * Signed Report of [...] left tube not able to be identified analog circuit designer: Angela Bennett Type of Anesthesia:: General Anesthesiologist: [...] to initiate adhesion lysis. We consulted w scarlet the general surgeon intraoperatively who arrives and [...] Reason prophylaxis not ordered:: Procedure Not Indicated 09/17/176 <Electronically signed by Tracey Barnhart MD> Date Tracey Barnhart MD CC: Maddy Monterroso NP; Tracey Barnhart MD Signed 17-Sep-2017 Operative Report Result: Comments: See Note; NOTES: Medical Records Department [address] [place] [address] Operative Report 09/17/17 1310 MR#: [id number] Acct: [id number] Name: DAYANARA MURRAY Rep #: [id number] : 1960 56 From: Tracey Barnhart MD PCP: Maddy Monterroso NP Status: REG SDC Y Location: [place] [address] Report of Operation Date of Procedure: 09/17/17 [...] left tube not able to be identified analog circuit designer: Angela Baumann Type of Anesthesia:: General Anesthesiologist: [...] skin glue and the student with me qasim moody. The vaginal instruments were removed and the [...] Discharge Instruction Result: Comments: See Note; NOTES: Medical Records Department [address] [place] [address] Instructions for Home/Discharge Instructions 09/17/17 1229 MR#: [id number] Acct: [id number] Name: DAYANARA MURRAY Rep #: [id number] : 1960 56 From: Tracey Barnhart MD PCP: Maddy Monterroso NP Status: REG [facility] Discharge Diet: No Restrictions - Increase fluid [...] HCl 500 mg PO DAILY 09/15/17 Hydrocodone/Acetaminophen [Gouldbusk 5-325 Tablet] 1 each PO Q6H PRN PRN 6 Days #20 tablet 09/17/17 Ibuprofen [ Motrin] 600 mg PO Q6H PRN #30 tab 09/17/17 The following prescriptions were given: Hydrocodone/Acetaminophen [Gouldbusk 5-325 Tablet] 1 each PO Q6H PRN PRN 6 Days #20 tablet PRN Reason: Pain Ibuprofen [Mo luz] 600 mg PO Q6H PRN #30 tab PRN Reason: Pain Primary Care Physician: Maddy Monterroso [Primary Care Provider] - Please Follow Up With: Tracey Barnhart MD - [phone] When: 1-2 weeks or as needed in my office 09/17/17 1230 <Electronically signed by Tracey Barnhart MD> Date Tracey Barnhart MD CC: Maddy Monterroso NP 26-Aug-2017 Abdomen/Pelvis without Cont Result: Comments: See Note; NOTES: Imaging Services [address] [place] [address] Abdomen/Pelvis without Cont MR#: [id number] Acct: [id number] Name: DAYANARA MURRAY Rep # : [id number] : 1960 F 56 From: Alejandra Urban MD PCP: Maddy Monterroso NP Status: REG CLI Study: Abdomen/Pelvis without Cont Date of Exam: 08/26/17 Exam# [id number] Ordering Dr: Maddy Monterroso Abdomen And Pelvis [...] hydronephrosis. at 0059 Reported and signed by: Aleajndra Urban MD Electronically Signed: Alejandra Urban MD at 23:57 EST Tel , Service supp ort , CC: Maddy Monterroso NP Training Assistant: Signed 04-Aug-2016 Kidney and Bladder Result: Comments: See Note; NOTES: Imaging Services [address] [place] [address] Endy 4d Kidney and Bladder MR#: [id number] Acct: [id number] Name: DAYANARA MURRAY Rep #: [id number] : 1960 F 55 From: Jamie Monique DO PCP: Maddy Monterroso Status: REG CLI Study: Kidney and Bladder Date of Exam: 08/04/16 Exam# [id number] Ordering Dr: Maddy Monterroso STUDY: RENAL ULTRASO [...] at 19:24 EST Tel , Service support [phone], CC: Maddy Monterroso Training Assistant: Signed Family History Unknown Family Member Name Dates Details Father Comments: at 63 [place], lung trauma Status: Active Social History Name Dates Details Alcohol Use Comments: Occasional alcohol use Status: Active Caffeine Use Comments: 2 QD Status: Active Exercise History Comments: None Status: Active Living Situation Comments: , Status: Active 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 Status: Active Tobacco use: Former smoker. Status: Active Smoking Status Name Dates Details Former smoker Vital Signs Date Test Result Details :13 Temperature 97.5 f Comments: Method: Temporal Pulse 78 /min Comments: Pattern: Regular Respiration Rate 16 /min Comments: Pattern: Unlabored O2 SAT 95 % Comments: Room air BP Systolic 90 mm[Hg] Comments: Patient Position: Sitting; Cuff Location: Left Arm; Cuff Size: Standard BP Diastolic 58 mm[Hg] Comments: Patient Position: Sitting; Cuff Location: Left Arm; Cuff Size: Standard Weight 188 lb Height 66 in Body Mass Index Calculated 30.34 kg/m2 Body Surface Area Calculated 1.95 m2 :12 Temperature 97.7 f Pulse 84 /min [...] 0.00 cm Results Date Description Value Details :14 HgA1C , Office (88066) HgA1C , Office 5.8 % (Normal) Range: 4.6 - 7.1 :14 Blood Glucose , Office (62874) Blood Glucose , Office 121 (Normal) 08-Lra-687288:38 Bedside Glucose Comments: [facility] [address] [place], [place] [address] BEDSIDE GLU 98 mg/dL (Normal) Range: 70-110 Comments: MANAGEMENT OF PATIENT CARE PER NURSING PROTOCOL :18 Bedside Glucose Comments: [facility] [address] [place], [place] [phone] BEDSIDE GLU 94 mg/dL (Normal) Range: 70-110 Comments: MANAGEMENT OF PATIENT CARE PER NURSING PROTOCOL :09 Hemoglobin A1c Comments: [facility] [address] [place], [address] HGB A1C 6.2 % (Normal) Range: 4.2-6.3 :59 Basic Metabolic Profile (BMP) Comments: [facility] [address] [place], [place], [address] GAP 8 (Normal) Range: 5-15 CO2 28.0 [...] Comments: Please note revised GLUCOSE reference range eeeeajncz22/02/2018. 45-Whc-016816:59 CBC-Complete Blood Cnt No Diff Comments: [facility] [address] [place], [place], [address] MPV 11.9 fL (Normal) Range: 6.2-12.0 PLT [...] 4.2-5.4 WBC 7.8 K/mm3 (Normal) Range: 4.4-11.0 08-Wpo-201425:59 Thyroid Stim Hormone (TSH) Comments: [facility] [address] [place], [address] TSH 1.31 {uIU/mL} (Normal) Range: 0.358-3.74 28-Jrm-614071:59 Type AND Screen Comments: Surgery Date: 09/17/17Hx of Preganancy in last 3 Months NoEver experience any problems with transfusion(s)? NHx of Transfusion in last 3 Months NReason for Type AND Screen/Red Cells: SURGERYSURGI EJ PROCEDURE: [facility] [address] [place], [place], [address] Antibody Screen NEGATIVE (Normal) BLOOD TYPE GEL A POSITIVE (Normal) 87-Uui-562734:52 HgA1C , Office (82340) HgA1C , Office 5.6 % (Normal) Range: 4.6 - 7.1 :52 Blood Glucose , Office (41518) Blood Glucose , Office 87 (Normal) :31 Urinalysis, Office (43312) UA - NITRITE Negative (Normal) URINE UROBILINGN OSMAN TIMED Normal mg/dL (Normal) UA - PROTEIN Negative mg/dL (Normal) UA - PH 5 (Abnormal) UA - BLOOD Negative (Normal) UA - SPECIFIC GRAVITY 1.020 (Normal) UA - KETONES Negative mg/dL (Normal) UA - BILIRUBIN Negative (Normal) UA - GLUCOSE Negative (Normal) 12-Nye-93734:08 Basic Metabolic Profile (BMP) Comments: [facility] [address] [place], [place], [address] GAP 8 (Normal) Range: 5-15 CO2 31.0 [...] 7-18 GLU 96 mg/dL (Normal) Range: 70-110 :08 CBC-Complete Blood Cnt No Diff Comments: [facility] [address] [place], [address] MPV 12.3 fL (Abnormal) Range: 6.2-12.0 PLT [...] (Normal) Range: 4.4-11.0 :17 HgA1C , Office (96360) Comments: 5.6 HgA1C , Office 5.6 % (Normal) Range: 4.6 - 7.1 01-Tek-274855:17 Blood Glucose , Office (61110) Comments: 98 Blood Glucose , Office 98 (Normal) 1-Soh-849651:42 Microscopic Examination Comments: PATIENT NOT FASTINGPERFORMED BY: [facility] [id number] Bacteria Few (Normal) Mucus Threads Present (Normal) Cast Type Hyaline casts (Normal) Casts Present {/lpf} (Abnormal) Epithelial Cells (non renal) 0-10 {/hpf} (Normal) Range: 0 - 10 RBC 0-2 {/hpf} (Normal) Range: 0 - 2 WBC 0-5 {/hpf} (Normal) Range: 0 - 5 7-Cbb-592645:42 MICROALBUMIN: CREATININE RATIO Comments: PATIENT NOT FASTINGPERFORMED BY: [facility] Bioscienceblin [place] [id number] (98862) AND (38400) Microalb/Creat Ratio 4.1 {mg/g_creat} (Normal) Range: 0.0-30.0 Microalbumin, Urine 3.5 ug/mL (Normal) Creatinine, Urine 84.7 mg/dL (Normal) 5-Piv-533303:42 URINALYSIS, W/ MICRO Comments: PATIENT NOT FASTINGPERFORMED BY: [facility] [facility] [id number] Information: [id number] SRC: ([id number]) Microscopic Examination See below: (Normal) Comments: Microscopic was indicated and was performed. Nitrite, Urine Negative (Normal) Urobilinogen,Semi-Qn 0.2 mg/dL (Normal) Range: 0.2-1.0 Bilirubin Negative (Normal) Occult Blood Negative (Normal) Ketones Negative (Normal) Glucose Negative (Normal) Protein Negative (Normal) WBC Esterase 2+ (Abnormal) Appearance Clear (Normal) Urine-Color Yellow (Normal) pH 5.5 (Normal) Range: 5.0-7.5 Specific [place] 1.019 (Normal) Range: 1.005-1.030 :42 URINE WILMER CULTURE-IDENTIFICATN Comments: PATIENT NOT FASTINGPERFORMED BY: [facility] [facility] [id number] ([id number]) Result 1 MUG (Normal) Comments: Mixed urogenital flora1,000 Colonies/mL Urine Culture,Comprehensive Final report (Normal) :16 Urinalysis, Office (05805) UA - LEUKOCYTE ESTERASE Small (Normal) UA - NITRITE Negative (Normal) URINE UROBILINGN OSMAN TIMED Normal mg/dL (Normal) UA - PROTEIN Negative mg/dL (Normal) UA - PH 5 (Abnormal) UA - BLOOD Negative (Normal) UA - SPECIFIC GRAVITY 1.025 (Normal) UA - KETONES Negative mg/dL (Normal) UA - BILIRUBIN Negative (Normal) UA - GLUCOSE Negative (Normal) :20 Urinalysis, Office (95934) UA - LEUKOCYTE ESTERASE Negative (Normal) UA - NITRITE Negative (Normal) URINE UROBILINGN OSMAN TIMED Normal mg/dL (Normal) UA - PROTEIN Negative mg/dL (Normal) UA - PH 5 (Abnormal) UA - BLOOD Negative (Normal) UA - SPECIFIC GRAVITY 1.010 (Normal) UA - KETONES Negative mg/dL (Normal) UA - BILIRUBIN Negative (Normal) UA - GLUCOSE Negative (Normal) 46-Fld-942693:09 Microscopic Examination Comments: PATIENT NOT FASTINGPERFORMED BY: [facility] Sobapc6575[facility] [id number] Bacteria Few (Normal) Mucus Threads Present (Normal) Epithelial Cells (non renal) 0-10 {/hpf} (Normal) Range: 0 - 10 RBC 3-10 {/hpf} (Abnormal) Range: 0 - 2 WBC 11-30 {/hpf} (Abnormal) Range: 0 - 5 40-Uro-257170:09 URINE WILMER CULTURE-IDENTIFICATN Comments: PATIENT NOT FASTINGPERFORMED BY: [employer] [facility]Us[facility] [id number] ([id number]) Antimicrobial MIHEAD (Normal) Comments: S = Susceptible; [...] mL (Abnormal) Urine Final report Culture,Comprehensive (Abnormal) 26-Zfe-492561:09 URINALYSIS (67309) Comments: PATIENT NOT FASTINGPERFORMED BY: [employer] Kakjrr4473CompassMDAs[facility] [id number] Information: SRC:UC Microscopic Examination See below: (Normal) Comments: Microscopic was indicated and was performed. Nitrite, Urine Negative (Normal) Urobilinogen,Semi-Qn 0.2 mg/dL (Normal) Range: 0.2-1.0 Bilirubin Negative (Normal) Occult Blood 1+ (Abnormal) Ketones Negative (Normal) Glucose Negative (Normal) Protein Negative (Normal) WBC Esterase 2+ (Abnormal) Appearance Clear (Normal) Urine-Color Yellow (Normal) pH 7.0 (Normal) Range: 5.0-7.5 Specific [place] 1.007 (Normal) Range: 1.005-1.030 :29 Urinalysis, Office (24985) UA - LEUKOCYTE ESTERASE Small (Normal) UA - NITRITE Negative (Normal) URINE UROBILINGN OSMAN TIMED Normal mg/dL (Normal) UA - PROTEIN Negative mg/dL (Normal) UA - PH 7 (Normal) UA - BLOOD Non Hemolyzed Moderate (Normal) UA - SPECIFIC GRAVITY 1.015 (Normal) UA - KETONES Negative mg/dL (Normal) UA - BILIRUBIN Negative (Normal) UA - GLUCOSE Negative (Normal) 43-Dyl-689322:06 URINE WILMER CULTURE-IDENTIFICATN Comments: PATIENT NOT FASTINGPERFORMED BY: [facility] Ldbfgr2598 [facility] [id number] Information: SRC:UC (62982) Result 1 MUG (Normal) Comments: Mixed urogenital flora1,000 Colonies/mL Urine Culture,Comprehensive Final report (Normal) 70-Eoa-566529:21 Urinalysis, Office (14205) UA - LEUKOCYTE ESTERASE Trace (Normal) UA - NITRITE Negative (Normal) URINE UROBILINGN OSMAN TIMED Normal mg/dL (Normal) UA - PROTEIN Negative mg/dL (Normal) UA - PH 7 (Normal) UA - BLOOD Negative (Normal) UA - SPECIFIC GRAVITY 1.020 (Normal) UA - KETONES Negative mg/dL (Normal) UA - BILIRUBIN Negative (Normal) UA - GLUCOSE Negative (Normal) :05 Blood Glucose , Office (41218) Comments: 76 Blood Glucose , Office 76 (Normal) 7-Tcn-678338:44 Urinalysis, Office (22639) UA - LEUKOCYTE ESTERASE Small (Normal) UA - NITRITE Negative (Normal) URINE UROBILINGN OSMAN TIMED Normal mg/dL (Normal) UA - PROTEIN Negative mg/dL (Normal) UA - PH 5 (Abnormal) UA - BLOOD Negative (Normal) UA - SPECIFIC GRAVITY 1.030 (Abnormal) UA - KETONES Negative mg/dL (Normal) UA - BILIRUBIN Negative (Normal) UA - GLUCOSE Negative (Normal) 28-Icx-410097:50 Blood Glucose , Office (84900) Blood Glucose , Office 102 (Normal) 14-Ugi-379637:32 Hemoglobin A1c Comments: Test performed at:[facility] [address] [place] [address] HGB A1C 7.1 % (Abnormal) Range: 4.2-6.3 92-Dht-641946:58 Blood Glucose , Office (86767) Blood Glucose , Office 99 (Normal) 55-Cbm-585004:49 ANTINUCLEAR ANTIBODIES DIRECT Comments: Test performed at:[facility] [address] [place] [address] TING-DIRECT Negative (Normal) Comments: Performed at: [address] [id number] Director: Rasheed Ziegler PhD, Phone: [phone] 86-Buv-728913:49 Erythrocyte Sed Rate Comments: Test performed at:[facility] [address] [place] [address] SED RATE 10 mm/h (Normal) Range: 0-30 90-Ywn-249960:49 Rheumatoid Factor Comments: Test performed at:[address] [address] RHEUMATOID FAC < 10.0 {IU/mL} (Normal) 94-Dag-690451:49 Sjogren's Antibodies A/B Comments: Test performed at:[address] [address] Anti-SS-B < 0.2 {AI} (Normal) Range: 0.0-0.9 Anti-SS-A < 0.2 {AI} (Normal) Range: 0.0-0.9 :27 Pathology Report Comments: PERFORMED BY: [facility] Cyto Dfdfg02347 [facility] [id number] BY: [facility] Dermatopathology Zuhnobk[address] [id number] Information: [id number] See MATER Comments: Material submitted: .SHAVE BIOPSY [...] SUBMITTEDENTIRELY IN A SINGLE CASSETTE.LMS/JASPathologist provided ICD-9:078.10CPT .694507 04-Zba-610929:05 HgA1C , Office (68752) Comments: 7.0 HgA1C , Office 7.0 % (Normal) Range: 4.6 - 7.1 85-Vud-268702:05 Blood Glucose , Office (29636) Comments: 93 Blood Glucose , Office 93 (Normal) 60-Wrk-883338:25 HgA1C , Office (61682) HgA1C , Office 6.8 % (Normal) Range: 4.6 - 7.1 :19 HgA1C , Office (63799) HgA1C , Office 8.0 % (Abnormal) Range: 4.6 - 7.1 :19 Blood Glucose , Office (68788) Blood Glucose , Office 153 (Normal) Comments: non-fasting 78-Erq-396578:58 HgA1C , Office (17524) HgA1C , Office 7.2 % (Abnormal) Range: 4.6 - 7.1 :34 URINE WILMER CULTURE-OSMAN COL Comments: PATIENT NOT FASTINGPERFORMED BY: [place] [id number] [facility] [id number] Information: SRC:UR [id number] COUNT (23889) Result 1 MUG (Normal) Comments: Mixed urogenital flora25,000-50,000 colony forming units per mL Urine Final report (Normal) Culture,Comprehensive 31-Cnl-029487:40 Urinalysis, Office (48596) UA - LEUKOCYTE ESTERASE Negative (Normal) UA - NITRITE Negative (Normal) URINE UROBILINGN OSMAN TIMED Normal mg/dL (Normal) UA - PROTEIN Negative mg/dL (Normal) UA - BLOOD Negative (Normal) UA - SPECIFIC GRAVITY 1.025 (Normal) UA - PH 7 (Normal) UA - KETONES Negative mg/dL (Normal) UA - BILIRUBIN Negative (Normal) UA - GLUCOSE Negative (Normal) 74-Vzx-059928:21 Rapid Strep Test, Office (82105) Rapid Strep Test, Office Positive (Normal) 66-Hkv-089101:21 Rapid Flu (58614 x 2) Influenza A Ag negative a and b (Normal) 75-Pbw-921935:06 URINE WILMER CULTURE-OSMAN COL Comments: PATIENT NOT FASTINGPERFORMED BY: [facility] [id number] Information: SRC:UR [id number] COUNT (68833) Antimicrobial MIHEAD (Normal) Comments: S = Susceptible; [...] mL (Normal) Urine Final report Culture,Comprehensive (Normal) 52-Vpz-926368:46 Urinalysis, Office (05742) UA - BILIRUBIN Negative (Normal) UA - BLOOD Negative (Normal) UA - GLUCOSE Negative (Normal) UA - KETONES Moderate mg/dL (Normal) Comments: trace UA - LEUKOCYTE ESTERASE Large (Normal) UA - NITRITE Negative (Normal) UA - PH 7.5 (Normal) UA - PROTEIN Negative mg/dL (Normal) UA - SPECIFIC GRAVITY 1.025 (Normal) URINE UROBILINGN OSMAN TIMED Normal mg/dL (Normal) Comments: 1.0E.U/dL 0-Csa-990558:52 CBCD,SMEAR DIFF RED CELL MORPH SeeNote {NORMAL} [...] 4.2-5.4 WBC 8.9 K/mm3 (Normal) Range: 4.4-11.0 2-Nch-785852:52 LIVER D BILI 0.11 mg/dL (Normal) Range: 0.00-0.30 ALT 45 U/L (Normal) Range: 12-78 T BILI 0.60 mg/dL (Normal) Range: 0.00-1.00 ALK P 67 U/L (Normal) Range: 50-136 AST 37 U/L (Normal) Range: 15-37 ALB 4.2 g/dL (Normal) Range: 3.4-5.0 T PROT 7.7 g/dL (Normal) Range: 6.4-8.2 6-Yyz-038855:14 LIVER/SPLEEN SCAN WITH FLOW Radiology Report See [...] 06/13/11 0800 by Rasheed Barrera MDTranscribed on 06/13/11 1733 by ITS IMPORTSign by Rasheed Barrera MD on 06/13/111733 Sign by: Rasheed Barrera MD :56 Blood Glucose , Office (11156) Blood Glucose , Office 135 (Normal) :56 HgA1C , Office (11814) HgA1C , Office 6.0 % (Normal) Range: 4.6 - 7.1 :14 Rapid Strep Test, Office (57647) Rapid Strep Test, Negative (Normal) Office 90-Vfg-32209:00 CULTURE, THROAT See Note (Normal) Comments: Normal throat alexsandra isolated. No beta-hemolyticstreptococcus isolated. :24 VIT D,25 29453 19.7 ng/mL (Abnormal) Range: 32.0-100.0 Comments: Recent studies consider the lower limit of 32.0 ng/mL to carmen threshold for optimal health.Inderjit COLEMAN. J Nutr. 2004;135(2):317-22.Performed at: [address] Director: Mariel Deleon MD, Phone: [phone] :[phone] HGB A1C 5.4 % (Normal) Range: 4.0-6.3 Comments: The methodology of Hgb A1C has changed to [place] significant changes in patient results are expected. The reference range remains the same. :01 TSH 1.49 {uIU/mL} (Normal) Range: 0.358-3.74 :07 Blood Glucose , Office (43924) Blood Glucose , Office 108 (Normal) :42 HgA1C , Office (25305) HgA1C , Office 5.8 % (Normal) Range: 4.6 - 7.1 :42 Blood Glucose , Office (50803) Blood Glucose , Office 99 (Normal) :22 HgA1C , Office (66774) HgA1C , Office 5.8 % (Normal) Range: 4.6 - 7.1 :22 Blood Glucose , Office (71139) Blood Glucose , Office 93 (Normal) :02 [...] 136-145 GLU 83 mg/dL (Normal) Range: 70-110 :00 LIVER ALB 4.1 g/dL (Normal) Range: 3.4-5.0 ALK P 85 U/L (Normal) Range: 50-136 ALT 61 U/L (Normal) Range: 30-65 AST 39 U/L (Abnormal) Range: 15-37 D BILI 0.13 mg/dL (Normal) Range: 0.00-0.30 T BILI 0.60 mg/dL (Normal) Range: 0.00-1.00 T PROT 7.4 g/dL (Normal) Range: 6.4-8.2 1-Xqx-041552:42 URINALYSIS W/O MICRO (36508) UA - APPEARANCE clear (Normal) UA - [...] (Normal) UA - URINE SEDIMENT neg (Normal) 68-Nyg-126939:30 CH/GC DNA 99990 CHLAM DNA 40178 SeeNote (Normal) Comments: Result: Negative GC DNA PROBE SeeNote (Normal) Comments: Result: Negative No swab in specimen when received.Test valid for male urethral and female endocervicalspecimens only.Performed At: [address] [id number] : AVEL PREP See Note {PER_HPF} Comments: FUNGAL ELEMENTS NONE SEEN 30 (Normal) : WET PREP See Note (Normal) Comments: [facility] 25-Mvw-601191:39 Urinalysis, Office (23681) Comments: ABN signed PE UA - BILIRUBIN Negative (Normal) UA - BLOOD Negative (Normal) UA - GLUCOSE Negative (Normal) UA - KETONES Negative mg/dL (Normal) UA - LEUKOCYTE ESTERASE Negative (Normal) UA - NITRITE Negative (Normal) UA - PH 6.0 (Normal) UA - PROTEIN Negative mg/dL (Normal) UA - SPECIFIC GRAVITY 1.005 (Normal) URINE UROBILINGN OSMAN TIMED Normal mg/dL (Normal) 55-Swm-056666:35 CBCD,SMEAR DIFF CELLS COUNTED 100 (Normal) EOS [...] See Note (Normal) Comments: #1- STUDIES AT [employer] HAVE CONFIRMED THE OBSERVATIONS OF OTHERS WHO HAVE DEMONSTRATED THAT PREVOTELLA, PORPHYROMONAS AND BACTEROIDES SPECIES OTHER THAN B.FRAGILIS GROUP ARE ROUTINELY ROBIN CEPTIBLE TO CEFOXITIN, CHLORAMPHENICOL, AND METRONIDAZOLE AND ARE USUALLY RESISTANT TO PENICILLIN. [facility] ORIGINAL RE PORT ON FILE IN LAB CONTAINS ADDITIONAL TEST SITE INFORMATION. ANAEROBIC CULT TO REF LAB 2 ANAEROBIC ORGANISMS ISOLATED AND IDENTIFIED. ORGANISM 1: PREVOTELLA BIVIA-ORGANISM 2: FINEGOLDIA JOSÉ :40 CH/GC [id number] CHLAM DNA SeeNote (Normal) Comments: Result: Negative GC DNA PROBE SeeNote (Normal) Comments: Result: Negative Performed At: [facility] [place], [place] [id number] :40 CULTURE, URINE URINE CULTURE See Note [...] TRICH RAREWBC 2-4 0 :04 Urinalysis, Office (79331) Comments: ABn signed UA - BILIRUBIN Negative (Normal) UA - BLOOD Negative (Normal) UA - GLUCOSE Negative (Normal) UA - KETONES Negative mg/dL (Normal) UA - LEUKOCYTE ESTERASE Small (Normal) UA - NITRITE Negative (Normal) UA - PH 5.0 (Normal) UA - PROTEIN Negative mg/dL (Normal) UA - SPECIFIC GRAVITY 1.010 (Normal) URINE UROBILINGN OSMAN TIMED 2 mg/dL (Normal) 6-Gxa-815042:10 CULTURE, URINE URINE CULTURE See Note {CFU/mL} (Normal) Comments: COLONY COUNT >100,000 ORGANISM 1: STREPTOCOCCUS AGALACTIAE (B) STREPTOCOCCUS AGALACTIAE (B): REACTION CEFAZOLIN $ <=8 S CLI NDAMYCIN, NON-EC $$ <=0.25 S ERYTHROMYCIN NON-EC $$ <=0.25 S LEVOFLOXACIN $$ <=1 S NITROFURANTOIN $ <= 32 S PENICILLIN G (STREP) $$ <=0.03 S TETRACYCLINE NON-EC $$ >=16 R VANCOMYCIN NON-EC $$ <=0.5 S 0-Eul-163696:37 Urinalysis, Office (12580) UA - BILIRUBIN Negative (Normal) UA - [...] Note (Normal) Comments: Culture exhibits no growth. :00 ROUTINE UA Comments: HOLD IN OE UNTIL [...] 1.49 INDETERMINANT > OR = 1.50 SUGGEST PR :42 HYSTERECT P-HYST (Normal) Comments: OPERATION Hysterectomy, [...] cysts. Fallopian tube - no pathologic change. AM: 01/01/07 GROSS DESCRIPTIO N Received is one container [...] 01/01/07 ANTIBODY SCREEN NEGATIVE (Normal) Comments: COMMENTS: PAT OR 12/31/06 BLOOD TYPE PT A POSITIVE (Normal) Comments: COMMENTS: [facility] OR 12/31/06 ::00 CBCD Comments: COMMENTS: RESULTS TO DR. MONTOYA AND DR. EAST, [facility] OR 12/31/06 BAND 5 % (Normal) [...] 11.6-14.6 WBC 9.8 K/mm3 (Normal) Range: 4.4-11.0 12-Qjd-477816:00 COMP METABOLIC Comments: COMMENTS: RESULTS TO DR. MONTOYA AND DR. EAST, [facility] OR 12/31/06 A/G 1.1 {RATIO} (Normal) Range: [...] T PROT 6.8 g/dL (Normal) Range: 6.4-8.2 58-Vun-995178:00 LIPID Comments: COMMENTS: [facility] OR 12/31/06 CHOL 155 mg/dL (Normal) Comments: [...] mg/dL VLDL 23 mg/dL (Normal) Range: 5-40 56-Tss-472145:00 LIVER Comments: COMMENTS: PAT OR 12/31/06 ALB 3.5 g/dL (Normal) Range: 3.4-5.0 ALK P 54 U/L (Normal) Range: 50-136 ALT 32 [iU]/L (Normal) Range: 30-65 AST 20 U/L (Normal) Range: 15-37 D BILI 0.07 mg/dL (Normal) Range: 0.00-0.30 T BILI 0.23 mg/dL (Normal) Range: 0.00-1.00 T PROT 6.8 g/dL (Normal) Range: 6.4-8.2 :00 ,SERUM Comments: COMMENTS: RESULTS TO DR. MONTOYA AND DR. EAST, [facility] OR 12/31/06 HCGSQUAL SeeNote m[iU]/mL (Normal) Comments: Result: NEGATIVE : PRO TIME Comments: COMMENTS: RESULTS TO DR. MONTOYA AND DR. EAST, [facility] OR 12/31/06 INR 1.0 (Normal) PROTIME 12.1 s (Normal) Range: 10.6-13.2 : PTT 23.5 s (Abnormal) Comments: COMMENTS: RESULTS TO DR. MONTOYA AND DR. EAST, [facility] OR 12/31/06 Range: 24.6-36.6 79-Eih-745138:25 ANAEROBIC CULT See Note (Normal) Comments: AMOUNT GROWTH GROWTH ORGANISM 1: PREVOTELLA BIVIA- 00-Cfk-816327:25 CH/GC DNA 15422 CHLAM DNA 44783 SeeNote (Normal) Comments: Result: Negative GC DNA PROBE SeeNote (Normal) Comments: Result: Negative Test valid for male urethral and female endocervicalspecimens only.Performed At: [facility] [place], [place] [id number] 64-Emu-048068:25 GENT CULT COMP GENT CULT COMP See [...] Note (Normal) Comments: MOTILE TRICH 1+WBC 1 53-Hbb-561983:00 CULTURE, URINE URINE CULTURE See Note {CFU/mL} (Normal) Comments: COLONY COUNT >100,000 ORGANISM 1: STREPTOCOCCUS AGALACTIAE (B) STREPTOCOCCUS AGALACTIAE (B): REACTION CEFAZOLIN $ <=8 S CLI NDAMYCIN, NON-EC $$ <=0.25 S ERYTHROMYCIN NON-EC $$ <=0.25 S LEVOFLOXACIN $$ <=1 S NITROFURANTOIN $ <= 32 S PENICILLIN G (STREP) $$ <=0.03 S TETRACYCLINE NON-EC $$ >=16 R VANCOMYCIN NON-EC $$ <=0.5 S 71-Jqr-723798:57 Urinalysis, Office (00008) Comments: ABN signed UA - BILIRUBIN Negative (Normal) UA - BLOOD Hemolyzed Trace (Normal) UA - GLUCOSE Negative (Normal) UA - KETONES Negative mg/dL (Normal) UA - LEUKOCYTE ESTERASE Moderate (Normal) UA - NITRITE Negative (Normal) UA - PH 6.5 (Normal) UA - PROTEIN Negative mg/dL (Normal) UA - SPECIFIC GRAVITY 1.010 (Normal) URINE UROBILINGN OSMAN TIMED Normal mg/dL (Normal) 81-Ekb-11496:00 ASPIRATION P-ASPS (Normal) Comments: OPERATION FNA right thyroid PRE-OPERATIVE DIAGNOSIS Right thyroid nodule TISSUE SUBMITTED Right thyroid FNA slides x 9 DIAGNOSIS (CYTOLOGY) Right thyroid nodule, FNA (smears): Negative for malignan t cells. See Cytology Study and Comment. SJ:quang 12/17/06 COMMENT The differential diagnosis includes chronic lymphocytic thyroiditis and colloid nodule. Correlation with clinical and radiolog ic study and appropriate follow up are necessary. CYTOLOGY STUDY The specimen consists of follicular cells, diluted colloid and lymphocytes. CYTOLOGY GROSS Received are 9 smears designated right th yroid nodule. Submitted for staining. / SJ:quang 12/16/06 TC:5 REPORT SIGNED: LAKISHA GALAN 12/17/06:38 [...] mg/dL (Normal) Range: 34-200 Comments: Performed At: [address] [id number] :38 IRON+TIBC IRON SATURATION 4.0 % (Abnormal) Range: 15.0-55.0 IRON, SERUM 19 ug/dL (Abnormal) Range: 35-150 TIBC 481 ug/dL (Abnormal) Range: 250-450 :38 LDH 205 U/L (Abnormal) Range: 100-190 :38 RETIC 1.19 % (Normal) Range: 0.5-1.5 :55 GLU GTT-2 HOUR 110 mg/dL (Normal) Comments: 2HR GTT GLU 2 HR GLU GTT-2 HOUR from 0516:[id number]. Range: 70-120 :55 GLU GTT-1 HOUR 162 mg/dL (Normal) Comments: 2HR GTT GLU 1 HR GLU GTT-1 HOUR from 0516:[id number]. Range: 120-170 :28 GLU GTT-30 min. 175 mg/dL (Abnormal) Comments: 2HR GTT GLU 1/2 HR GLU GTT-30 min. from 0516:[id number]. Range: 110-170 :46 CBCD,SMEAR DIFF ANISO 1+ [...] ORGANISM 1: MIXED GRAM POSITIVE ORGANISMS (Normal) :46 GLU GTT-FASTING 88 mg/dL (Normal) Comments: 2HR GTT FASTING GLU GTT-FASTING from 0516:[id number]. Range: 70-110 Comments: GLUCOSE TOLERANCE TEST Reference Interval Non- Adults Fasting 70 - 110 30 minutes 110 - 170 1 hour 120 - 170 2 hour 70 - 120 3 hour 70 - 110 4 hour 70 - 110 5 hour 70 - 110 55-Lml-101266:46 LIPID CHOL 216 mg/dL (Abnormal) Comments: <200 [...] mg/dL VLDL 17 mg/dL (Normal) Range: 5-40 54-Hum-420565:46 MICROALBUMIN,UR 9.7 mg/L (Normal) :46 ROUTINE UA [...] 0.2 EU/dl (Normal) Range: 0.2 - 1.0 44-Vfy-217969:46 TSH 1.50 {uIU/mL} (Normal) Range: 0.34-4.82 :05 PELVIC (NON-PREG) (HP) Radiology Report See Note (Normal) Comments: Exam Number: [id number] THYROID ULTRASOUND HISTORYThyroid nodule. High resolution real [...] for review. Reported By: MELI YE M.D. 32-Xmr-52397:05 THYROID () Radiology Report See Note (Normal) Comments: Exam Number: [id number] THYROID ULTRASOUND HISTORYThyroid nodule. High resolution real [...] for review. Reported By: MELI YE M.D. 81-Ngv-327143:15 Urinalysis, Office (61330) Comments: done-jjp UA - BILIRUBIN Negative (Normal) UA - BLOOD Negative (Normal) UA - GLUCOSE Negative (Normal) UA - KETONES Negative mg/dL (Normal) UA - LEUKOCYTE ESTERASE Negative (Normal) UA - NITRITE Negative (Normal) UA - PH 5.0 (Normal) UA - PROTEIN Negative mg/dL (Normal) UA - SPECIFIC GRAVITY 1.000 (Normal) URINE UROBILINGN OSMAN TIMED Normal mg/dL (Normal) 02-Hpn-146254:45 CULTURE, URINE URINE CULTURE See Note {CFU/mL} (Normal) Comments: COLONY COUNT 1000-10,000 ORGANISM 1: MIXED GRAM POSITIVE ORGANISMS Plan of Care Name Dates Details Instructions BMI 30.0-30.9,adult : Follow up in 3 weeks Indication: BMI 30.0-30.9,adult Nonsmoker : Eprescribed prescriptions (G8553) Indication: Nonsmoker BMI 30.0-30.9,adult : Follow up in 4 [...] : FOLLOW UP IN 4 WEEKS with [facility] to go over BS diary, diet etc Indication: Impaired fasting glucose Abnormal glucose tolerance test : FOLLOW UP IN 1 WEEK [facility] for meter instruction, begin metformin, etc Indication: [...] Indication: Urinary frequency Planned Observations LIPID PANEL (27116)Indication: Hypertension On: 13-Apr-20188:26 Request CBC & PLATELETS (AUTO) (85636)Indication: Hypertension On: 13-Apr-20188:26 Request CALCIFEDIOL (98564)Indication: Hypertension On: 13-Apr-20188:26 Request METABOLIC PANEL, COMPREHENSIVE (52163)Indication: Hypertension On: 13-Apr-20188:25 Request HGB A1C (25122)Indication: Diabetes mellitus, controlled On: 28-Tdx-048928:33 Request CBC, Platelets & Auto Diff (59138)Indication: Hypertension On: 18-Jan-2018 Request Lipid Panel (06076)Indication: Hypertension On: 18-Jan-2018 Request Metabolic Panel, Comprehensive (72521)Indication: Hypertension On: 18-Jan-2018 Request Metabolic Panel, Comprehensive (63653)Indication: Diabetes mellitus, controlled On: :28 Request HGB A1C (48931)Indication: Diabetes mellitus, controlled On: :28 Request TSH (70367)Indication: Diabetes mellitus, controlled On: 57-Pia-264571:50 Request Comments: mar 2017 URINALYSIS W MICROSCOPY (39989)Indication: Flank pain On: :09 Request URINE WILMER CULTURE-OSMAN COL COUNT (07206)Indication: Flank pain On: :08 Request CALCIFEDIOL (85705)Indication: DEFICIENCY, VITAMIN D NOS On: :39 Request Comments: to be done December 2016 LIPID PANEL (05920)Indication: Hypercholesteremia On: :38 Request Comments: print to be done prior to next visit URINALYSIS, W/ MICRO (62408)Indication: Kidney stone on right side On: :36 Request HGB A1C (86712)Indication: Hypercholesteremia On: :49 Request Lipid Panel (85310)Indication: Diabetes mellitus, controlled On: :49 Request Metabolic Panel, Comprehensive (63850)Indication: Diabetes mellitus, controlled On: :48 Request TSH (86563)Indication: Diabetes mellitus, controlled On: :48 Request CBC, Platelets & Auto Diff (63588)Indication: Diabetes mellitus, controlled On: :48 Request HGB A1C (94623)Indication: Uncontrolled diabetes mellitus type 2 without complications On: :46 Request CALCIFEDIOL (33536)Indication: Uncontrolled diabetes mellitus type 2 without complications On: :46 Request TSH (13288)Indication: Uncontrolled diabetes mellitus type 2 without complications On: :46 Request CBC, Platelets & Auto Diff (57878)Indication: Uncontrolled diabetes mellitus type 2 without complications On: :46 Request Lipid Panel (09792)Indication: Uncontrolled diabetes mellitus type 2 without complications On: :46 Request Metabolic Panel, Comprehensive (80934)Indication: Uncontrolled diabetes mellitus type 2 without complications On: :46 Request Metabolic Panel, Comprehensive (66637)Indication: Kidney stone on right side On: :44 Request PT (PROTHROMBIN TIME) (11149)Indication: Preop examination On: :20 Request CBC, Platelets & Auto Diff (51352)Indication: Preop examination On: 35-Ylp-375006:20 Request CBC, Platelets & Auto Diff (22768)Indication: Preop examination On: :19 Request Metabolic Panel, Comprehensive (98904)Indication: Preop examination On: 41-Gyy-595673:19 Request Metabolic Panel, Basic (73154)Indication: Flank pain On: 54-Quv-511456:43 Request Hemoglobin Glyclated (HGB A1C) (91716)Indication: Uncontrolled diabetes mellitus type 2 without complications On: :04 Request CREATININE CLEARANCE (99129)Indication: Abdominal pain, acute, right upper quadrant On: 74-Jws-245738:54 Request Comments: STAT Hemoglobin Glyclated (HGB A1C) (30160)Indication: Uncontrolled diabetes mellitus type 2 without complications On: 76-Kgc-372915:25 Request HEPATIC FUNCTION PANEL (00581)Indication: Hypercholesteremia On: 92-Qoj-783268:37 Request Comments: repeat Mid November fasting TSH (THYROID STIMULATING HORMONE) (59313)Indication: Uncontrolled diabetes mellitus type 2 without complications On: 89-Bzy-256652:47 Request CALCIFIDIOL (35894) VIT D 25Indication: Uncontrolled diabetes mellitus type 2 without complications On: 51-Fxk-008864:47 Request MICROALBUMIN: CREATININE RATIO (19822) AND (57851)Indication: Uncontrolled diabetes mellitus type 2 without complications On: 71-Ckb-174586:47 Request METABOLIC PANEL, COMPREHENSIVE (76531)Indication: Uncontrolled diabetes mellitus type 2 without complications On: 78-Qyz-447420:47 Request LIPID PANEL (51018)Indication: Uncontrolled diabetes mellitus type 2 without complications On: 60-Igr-027590:47 Request Metabolic Panel, Comprehensive (88829)Indication: Uncontrolled diabetes mellitus type 2 without complications On: 76-Uge-431088:44 Request Lipid Panel (67962)Indication: Uncontrolled diabetes mellitus type 2 without complications On: :44 Request Blood Glucose , Office (82146)Indication: Uncontrolled diabetes mellitus type 2 without complications On: 88-Ehy-485909:25 Request BLD CNT, MANUAL CELL COUNT, EACH (96397)Indication: Thyroid nodule On: 7-Uxv-633546:56 Request URINALYSIS, AUTOMATED W/ MICRO (41897)Indication: Thyroid nodule On: 1-Cvi-246484:56 Request 24HR URINE CREATININE (23937)Indication: Thyroid nodule On: 0-Rcp-671737:56 Request MICROALBUMIN, TIMED 24 UR 950881 (84310)Indication: Thyroid nodule On: 4-Rfr-282808:56 Request CALCIFEDIOL (39104)Indication: Thyroid nodule On: 2-Ezt-512044:55 Request Metabolic Panel, Comprehensive (89841)Indication: Uncontrolled diabetes mellitus type 2 without complications On: 7-Eog-615324:55 Request TSH (THYROID STIMULATING HORMONE) (62547)Indication: Thyroid nodule On: 9-Xbv-247704:54 Request LIPID PANEL (41479)Indication: GERD (gastroesophageal reflux disease) On: 6-Ksj-636318:52 Request CBC WITH MANUAL DIFF (29388)Indication: Hypertension On: 12-Sxg-773957:00 Request Vitamin D Hydroxy (03459)Indication: Depression On: 79-Erv-316236:59 Request TSH (44616)Indication: Depression On: 63-Yow-829376:59 Request URINALYSIS, W/ MICRO (11819)Indication: Hypertension On: 41-Chr-626707:59 Request MICROALBUMIN: CREATININE RATIO (30063) AND (20653)Indication: Hypertension On: 69-Qmm-404758:59 Request METABOLIC PANEL, COMPREHENSIVE (37006)Indication: Hypertension On: 23-Syh-800461:59 Request LIPID PANEL (34988)Indication: Hypertension On: :59 Request CBC, Platelets & Auto Diff (14429)Indication: Fatigue On: :29 Request Metabolic Panel, Basic (02871)Indication: Fatigue On: :29 Request WILMER CULTURE-OTHER (82858)Indication: Pharyngitis, acute On: :25 Request Influenza A&B Viral Culture (80853)Indication: Pharyngitis, acute On: :21 Request T4, FREE (THYROXINE) (21205)Indication: Thyroid nodule On: :01 Request FREE TRIDOTHYRONINE (T3) (74813)Indication: Thyroid nodule On: 42-Tow-870070:00 Request TSH (THYROID STIMULATING HORMONE) (27265)Indication: Thyroid nodule On: 43-Kza-624993:00 Request HEPATIC FUNCTION PANEL (65539)Indication: Hepatomegaly On: 8-Hml-894249:13 Request CBC with manual diff (87114)Indication: Hepatomegaly On: 3-Xmf-625678:13 Request HEPATIC FUNCTION PANEL (01944)Indication: Splenomegaly On: 4-Xys-749249:57 Request CBC with manual diff (68745)Indication: Splenomegaly On: 1-Esd-227899:57 Request CCP ANTIBODY (08688)Indication: Pain in unspecified joint On: :10 Request SED RATE ERYTHROCYTE (63244)Indication: Pain in unspecified joint On: :10 Request C-REACTIVE PROTEIN (68744)Indication: Pain in unspecified joint On: :10 Request RHEUMATOID FACTOR-QUANT (68343)Indication: Pain in unspecified joint On: :10 Request TING (ANTINUCLEAR ANTIBODY) (21695)Indication: Pain in unspecified joint On: :10 Request CBC WITH MANUAL DIFF (80586)Indication: Pain in unspecified joint On: :10 Request METABOLIC PANEL, COMPREHENSIVE (13234)Indication: Pain in unspecified joint On: :10 Request WILMER CULTURE-OTHER (43117)Indication: Pharyngitis, acute On: 07-Whd-684841:14 Request Hemoglobin Glyclated (HGB A1C) (28498)Indication: Abnormal glucose tolerance test On: :52 Request CALCIFEDIOL (76438)Indication: Abnormal glucose tolerance test On: :15 Request TSH (32412)Indication: Fatty liver On: :11 Request LIPID PANEL (63109)Indication: Hypercholesteremia On: 20-Eqi-004868:54 Request CBC WITH MANUAL DIFF (91150)Indication: Hypertension On: 82-Unh-413243:54 Request METABOLIC PANEL, COMPREHENSIVE (23388)Indication: Elevated LFTs On: 67-Sxa-937170:54 Request MICROALBUMIN: CREATININE RATIO (17435) AND (12611)Indication: Abnormal glucose tolerance test On: 21-Yzf-268708:54 Request METABOLIC PANEL, COMPREHENSIVE (09746)Indication: Hypertension On: 31-Mcs-402662:56 Request LIPID PANEL (70084)Indication: Hypercholesteremia On: 46-Aih-814629:56 Request SED RATE ERYTHROCYTE (57631)Indication: Pain in unspecified hip On: 92-Vsq-353966:55 Request C-REACTIVE PROTEIN (92685)Indication: Pain in unspecified hip On: 32-Wji-392627:55 Request RHEUMATOID FACTOR-QUANT (70785)Indication: Pain in unspecified hip On: 77-Ryq-463986:55 Request TING (ANTINUCLEAR ANTIBODY) (23385)Indication: Pain in unspecified hip On: 55-Pmj-079385:55 Request MICROALBUMIN: CREATININE RATIO (48430) AND (39290)Indication: Other specified abnormal findings of blood chemistry On: 23-Hqx-726390:54 Request GLUCOSE TOLERANCE TEST (GTT) 2 hour (92162)Indication: Other specified abnormal findings of blood chemistry On: 78-Hur-054946:54 Request LIPID PANEL (11533)Indication: Hypercholesteremia On: 15-Nxa-086645:17 Request METABOLIC PANEL, COMPREHENSIVE (54360)Indication: Elevated LFTs On: 72-Yfq-973328:17 Request METABOLIC PANEL, COMPREHENSIVE (78036)Indication: Elevated LFTs On: :15 Request HEPATITIS A, B & C PANELSIndication: Elevated LFTs On: 22-Jcm-978107:15 Request LIPID PANEL (39820)Indication: Low HDL (under 40) On: 5-Fhe-710212:52 Request HEPATIC FUNCTION PANEL ([id number])Indication: Elevated LFTs On: :52 Request MICROALBUMIN: CREATININE RATIO ([id number]) AND (02744)Indication: Hypertension On: :23 Request CBC WITH MANUAL DIFF ([id number])Indication: Chronic blood loss anemia On: :23 Request METABOLIC PANEL, COMPREHENSIVE (14001)Indication: Hypopotassemia On: :22 Request HEPATIC FUNCTION PANEL (47401)Indication: Hypercholesteremia On: :22 Request LIPID PANEL (42591)Indication: Hypercholesteremia On: :22 Request LIPID PANEL (40963)Indication: Hypercholesteremia On: :27 Request MICROALBUMIN: CREATININE RATIO ([id number]) AND (08660)Indication: Hypertension On: 8-Cib-038941:27 Request URINALYSIS W/O MICRO ([id number])Indication: Hypertension On: :27 Request TSH ([id number])Indication: Thyroid nodule On: 9-Upp-001358:26 Request METABOLIC PANEL, COMPREHENSIVE ([id number])Indication: Hypertension On: 1-Ntk-765483:26 Request CBC WITH MANUAL DIFF ([id number])Indication: Hypertension On: 9-Heo-813427:26 Request LIPID PANEL ([id number])Indication: Low HDL (under 40) On: 1-Jyi-498147:42 Request CBC WITH MANUAL DIFF ([id number])Indication: Chronic blood loss anemia On: 3-Grq-198278:42 Request METABOLIC PANEL, COMPREHENSIVE ([id number])Indication: Hypertension On: 6-Fgv-156842:42 Request METABOLIC PANEL, COMPREHENSIVE ([id number])Indication: Hypertension On: 86-Mmz-224017:56 Request LIPID PANEL ([id number])Indication: Low HDL (under 40) On: 40-Dll-501221:56 Request CBC WITH MANUAL DIFF ([id number])Indication: Chronic blood loss anemia On: 96-Mkj-281346:55 Request WET MOUNT WITH AVEL ([id number])Indication: Vaginal discharge On: 56-Gva-096138:09 Request CULTURE, GONOCOCCUS ([id number])Indication: Vaginal discharge On: :09 Request CULTURE CHLAMYDIA ([id number])Indication: Vaginal discharge On: 01-Kzt-387010:09 Request Thin prep Pap ([id number])Indication: Well woman exam On: :08 Request WET MOUNT ([id number])Indication: Vaginal discharge On: :37 Request Comments: with avel CULTURE, GONOCOCCUS ([id number])Indication: Vaginal discharge On: :37 Request CULTURE CHLAMYDIA ([id number])Indication: Vaginal discharge On: :37 Request BACT CULTURE ANY-ANAEROBIC ([id number])Indication: Vaginal discharge On: :37 Request WILMER CULTURE-OTHER ([id number])Indication: Vaginal discharge On: :37 Request URINE WILMER CULTURE (OSMAN COL COUNT) ([id number])Indication: dysuria On: :36 Request LIPID PANEL ([id number])Indication: Hypercholesteremia On: :36 Request CBC WITH MANUAL DIFF ([id number])Indication: Chronic blood loss anemia On: :34 Request METABOLIC PANEL, COMPREHENSIVE ([id number])Indication: Hypopotassemia On: :34 Request WET MOUNT WITH AVEL ([id number])Indication: Vaginal discharge On: :11 Request BACT CULTURE ANY-ANAEROBIC ([id number])Indication: Vaginal discharge On: :11 Request WILMER CULTURE-OTHER ([id number])Indication: Vaginal discharge On: 91-Lnt-615787:10 Request URINE WILMER CULTURE-IDENTIFICATN ([id number])Indication: dysuria On: :09 Request CBC WITH MANUAL DIFF ([id number])Indication: Chronic blood loss anemia On: :59 Request Comments: 1 month LIPID PANEL ([id number])Indication: Hypercholesteremia On: :59 Request Comments: 3 mos HEPATIC FUNCTION PANEL ([id number])Indication: Hypercholesteremia On: :59 Request URINE WILMER CULTURE (OSMAN COL COUNT) ([id number])Indication: Urinary frequency On: :33 Request MICROALBUMIN URINE QUANT ([id number])Indication: Hypertension On: :32 Request URINALYSIS W/O MICRO ([id number])Indication: Hypertension On: :32 Request TSH ([id number])Indication: Hypertension On: :32 Request METABOLIC PANEL, COMPREHENSIVE ([id number])Indication: Hypertension On: :32 Request LIPID PANEL ([id number])Indication: Hypertension On: :32 Request CBC WITH MANUAL DIFF ([id number])Indication: Hypertension On: :32 Request TSH (THYROID STIMULATING HORMONE) ([id number])Indication: Thyroid nodule On: :32 Request GLUCOSE TOLERANCE TEST (GTT) 2 hour ([id number])Indication: Urinary frequency On: :31 Request Planned Encounters Medical; 3 Week FU - On: 31-May-2018 15:45 [facility] Maddy Monterroso CNP, CNP, Mary E Planned Procedures Radiology - Hip - LeftBy: Kriss LYNCH, On: 10-May-2018 Intent Maddy Baker CNP Toradol Injection, 30 mg ([id number])By: On: 10-May-2018 Intent Maddy Monterroso CNP, CNP, Mary E Radiology - Lumbar SpineBy: Kriss On: 10-May-2018 Intent Maddy LYNCH CNP, Mary E DIAGNOSTIC DIGITAL MAMMOGRAPHY OF On: 16-Apr-2018 Intent RIGHT BREAST ([id number])By: Maddy Monterroso CNP, CNP, Mary E MAMMOGRAM BREAST RIGHT DIAGNOSTIC On: 07-Oct-2017 Intent ([id number])By: Maddy Monterroso CNP, CNP, Mary E DEXA SCAN AXIAL SKELETON ([id number])By: On: 20-Jul-2017 Intent Maddy Monterroso CNP, CNP, Mary E SCREENING DIGITAL TOMOSYNTHESIS OF On: 20-Jul-2017 Intent BREAST ([id number])By: Maddy Monterroso CNP, CNP, Mary E CT - Abdomen & Pelvis Stone On: 20-Jul-2017 Intent ProtocolBy: Maddy Monterroso CNP, CNP, Mary E MAMMOGRAM BREAST BILATERAL SCREENING On: 11-Sep-2016 Intent DIGITAL ([id number])By: Kriss LYNCH [place] Monterroso CNP [place] Ultrasound - RenalBy: Kriss CRISMaddy On: 03-Jun-2016 Intent E Kriss LYNCH [place] ELECTROCARDIOGRAM, COMPLETE (ECG) On: 03-Jun-2016 Intent ([id number])By: Grace Nolasco LPN Comments: sinus rhythm TRANSVAGINAL ULTRASOUND ([id number])By: On: 21-Mar-2016 Intent Jaydentripp LYNCHMaddy Pam Monterroso CNP [place] Ultrasound - PelvisBy: Jaydentripp CRIS, On: 17-Mar-2016 Intent Maddy Orozco Kriss LYNCH [place] Ultrasound - RenalBy: Kriss LYNCH Maddy On: 17-Mar-2016 Intent E Kriss LYNCH [place] MAMMOGRAM, SCREENING, BOTH BREAST On: 06-Aug-2015 Intent ([id number])By: Kriss LYNCH [place]anaPam Monterroso CNP [place] Ultrasound - PelvisBy: Kriss LYNCH, On: 27-Jun-2015 Intent KeyanaPam Monterroso CNP [place] Comments: if done at [facility] please send to [facility] and Dr. [place] CT - Abdomen & Pelvis (IV Contrast On: 11-Jun-2015 Intent Needed)By: Maddy Monterroso CNP, CNP, Mary E Bone Density StudyBy: Kriss LYNCHMaddy On: 23-Apr-2015 Intent E Maddy Monterroso CNP BIOPSY OF SKIN LESION, SINGLE On: 02-Oct-2014 Intent ([id number])By: Maddy Monterroso CNP, CNP, Mary E REMOVAL OF SKIN TAGS, UP TO 15 On: 02-Oct-2014 Intent ([id number])By: Maddy Monterroso CNP, CNP, Mary E CALCULATED BMI ABOVE THE UPPER On: 24-Jul-2014 Intent PARAMETER AND A FOLLOW-UP PLAN WAS DOCUMENTED IN THE MEDICAL RECORD ([id number])By: Maddy Monterroso CNP, CNP, Mary E HG A1C LEVEL < 7.0% ([id number])By: Kriss On: 24-Jul-2014 Intent Maddy LYNCH CNP [place] EKG ([id number])By: Leyla Birch DO On: 12-Sep-2013 Intent Comments: nsr no acute chg SPECIMEN HANDLING/TRANSPORT On: 12-Sep-2013 Intent ([id number])By: Kriss CRIS, Maddy Monterroso CNP, [place] Aerosol Treatment ([id number])By: Kriss On: 24-Jun-2013 Intent CRIS, [place] Kriss LYNCH, [place] Aerosol Treatment ([id number])By: Kriss On: 14-Jun-2013 Intent CRIS, Maddy Monterroso CNP, [place] SPECIMEN HANDLING/TRANSPORT On: 31-May-2013 Intent ([id number])By: Bibi Jain LPN Ultrasound - ThyroidBy: Kriss LYNCH, On: 28-Feb-2013 Intent Maddy Baker CNP Nuclear Medicine - OtherBy: Kriss On: 06-Jun-2011 Intent Maddy LYNCH CNP, Maddy Orozco Comments: LIVER-SPLEEN SCAN nuclear medicine CT - Abdomen & PelvisBy: Kriss LYNCH, On: 28-Feb-2011 Intent Maddy Baker CNP Breast Screening - BilateralBy: Fast On: 05-Jun-2010 Intent Ramonita JACKSON A Ultrasound - ThyroidBy: Brayden JACKSON, On: 05-Jun-[address] - Brain/HeadBy: Tristan East DOa A On: 04-Jun-2010 Intent Radiology - Knee - Right - Weight On: 25-Feb-2010 Intent BearingBy: Tristan East DOa A Radiology - Lumbar SpineBy: Brayden JACKSON, On: 21-Dec-2009 Intent Ramonita A EKG ([id number])By: Tashia Casiano On: 15-Oct-2009 Intent Comments: ekg [...] MAMMOGRAM, SCREENING, BOTH BREASTS On: 26-Dec-2008 Intent ([id number])By: Ramonita East DO A DXA, BONE DENSITY, AXIAL SKELETON On: 26-Dec-2008 Intent ([id number])By: Ramonita East DO A Ultrasound - ThyroidBy: Fast DO, On: 05-Sep-2008 Intent Ramonita A EKG ([id number])By: Tashia Casiano On: 05-Sep-2008 Intent Comments: ekg showed normal sinus rhythym, normal axis, no acute st/t wave changes MAMMOGRAM, SCREENING, BOTH BREASTS On: 17-Feb-2007 Intent ([id number])By: NATALEE SCHMITZ CNP Ultrasound - PelvisBy: Brayden JACKSON Ramonita On: 21-Oct-2006 Intent A Ultrasound - ThyroidBy: Brayden DO, On: 21-Oct-2006 Intent Ramonita A Planned Medications INJECTION, KETOROLAC TROMETHAMINE, PER 15 MG Ordered: 10-May-2018 Pending Maddy Monterroso CNP, CNP, Mary E Instructions Name Dates Details Nonsmoker : How to access health information online Indication: Nonsmoker Nonsmoker : How to access health information online - Detail Indication: Nonsmoker Nonsmoker : Patient Instructions Indication: Nonsmoker Diabetes mellitus, controlled : How to access [...] Diabetes mellitus, controlled : DISCONTINUED - CALCIFEDIOL ([id number]) Indication: Diabetes mellitus, controlled Diabetes mellitus, controlled : DISCONTINUED - HGB A1C ([id number]) Indication: Diabetes mellitus, controlled DEFICIENCY, VITAMIN D NOS : DISCONTINUED - CALCIFEDIOL ([id number]) Indication: DEFICIENCY, VITAMIN D NOS Hypercholesteremia : DISCONTINUED - LIPID PANEL ([id number]) Indication: Hypercholesteremia Hypercholesteremia : DISCONTINUED - LIPID PANEL ([id number]) Indication: Hypercholesteremia DEFICIENCY, VITAMIN D NOS : DISCONTINUED - CALCIFEDIOL ([id number]) Indication: DEFICIENCY, VITAMIN D NOS Kidney stone [...] : Patient Instructions Indication: Bleeding gums Encounters Office Visit On: 10-May-2018 16:11 Encounter Reason: Follow up for chronic medical issues - The patient feels well with minor complaints (tired and headache), has decreased energy level and is sleeping well. Patient has been compliant with instructions. C End: 10-May-2018 17:03 urrent medication use: no side effects, compliant with dosing regimen and considered effective by patient. Patient sleeps 6 (broken) hours per night. Nutrition: inappropriate diet. The medical issues th e patient is following up for include All identified problems below., [ADDITIONAL REASON] Hip Problem - Note for Hip problem: Left hip pain x months, from back and into buttocks and down leg Encounter Diagnosis: Diabetes mellitus, controlled, Nonsmoker, BMI 30.0-30.9,adult, Sciatica (724.3), Pain in unspecified hip [facility] Annotation/Addendum On: 16-Apr-2018 15:23 Encounter Diagnosis: Abnormal [...] with dosing regimen and considered effective by taras negro. Patient sleeps 6 (broken) hours per night. [...] like bra stuck her. Ultrasound done at [facility] Encounter Diagnosis: Hypertension, Flank pain End: 17-Mar-2016 [...] for Follow up ER: Had xray in [facility] rt lower quad forund constipation given colace [...] go up on meds-- she saw Katerina nov- told her come back in year-, [...] for chronic medical issues: she [facility] to [facility]-- she had a nodule in lung-- she had ct yesterday on chest to followup- she is seeing s jed for this and he ordered pfts- never [...]
--- OUTSIDE RECORDS SUMMARY | 2018-09-24 05:41 | XMS RPT_ITS | Continuity of Care Document ---
:1960 Author Organization [facility] Address [address] [facility] [address] [place] [address] Phone Care Team Providers Name Role Phone Kriss CRISMaddy E Unavailable Dr. Cortez Anna Unavailable Wild JOHNSON, Talita Bonilla Unavailable Miah JOHNSON, Romaine Baldwin Unavailable Dr. Baljit Miner Unavailable Dr. Bob Camara Unavailable Gaurav OLIVAREZ, Grace Unavailable Unavailable Jany Moreau Unavailable Unavailable Zandra Kruger Unavailable Unavailable Gravswetha, Ni Unavailable Unavailable Unavailable Unavailable Problems Name Dates Details Abdominal pain (R10.9, 789.00) Comments: Rt lower CT reviewed 6cm adnexal cyst Status: Active Abnormal mammogram (R92.8, 793.80) Status: Active Adnexal cyst (N94.9, 625.8) Comments: CT done [facility] 6cm Adnexal cyst seeing Patrice Status: Active Adverse food reaction (T78.1XXA, 995.7) [...] by Dr. Kelton Owens at [facility] on on thyriod hormone replacemnt Status: [...] Quantity: 1 {Bottle} Refills: 3 Ordered:18-Jun-2015 Kriss CRIS Maddy Muniz CRIS Maddy Orozco Start : 18-Jun-2015 Active Comments:Dx: 250.0 Shay Microlet Lancets Miscellaneous 1 (one) Misc Misc bid as directed for 0 days Quantity: 1 {Box} Refills: 6 Ordered:28-Jan-2016 Amparoivana CRIS Maddy Muniz CRIS Maddy Orozco Start : 28-Jan-2016 Active Comments:DX: 790.22 Lancets Ultra Fine Miscellaneous 1 (one) Misc bid for 0 days Quantity: 60 {QS} Refills: 0 Ordered:05-Sep-2016 Kriss CRIS Maddy Muniz CRIS Maddy Orozco Start : 05-Sep-2016 Active LEVOTHYROXINE SODIUM, 137MCG (Oral Tablet) 1 (one) Tablet daily for 0 days Quantity: 90 {Tablet} Refills: 3 Ordered:31-Jul-2015 Sandra Oseguera MD Start : 31-Jul-2015 Active Lisinopril 10 MG Oral Tablet 1 (one) Tablet daily for 0 days Quantity: 90 {Tablet} Refills: 2 Ordered:19-Oct-2017 Maddy Monterroso CNP, CNP, Mary E Start : 19-Oct-2017 Active Medrol 4 MG [...] Refills: 0 Ordered:23-Jun-2016 Kriss LYNCH, Maddy Muniz [facility], Maddy Orozco Start : 23-Jun-2016 End : 30-Jun-2016 Inactive CITALOPRAM HYDROBROMIDE, 20MG (Oral Tablet) 1 Tablet daily for 0 days Quantity: 90 {Tablet} Refills: 1 Ordered:31-May-2013 Kriss LYNCH, Maddy Muniz [facility], Maddy Orozco Start : 31-May-2013 End : 31-May-2013 Inactive DOCUSATE SODIUM, 100MG (Oral Capsule) 1 (one) Capsule bid for 30 days Quantity: 30 {Capsule} Refills: 0 Ordered:05-Nov-2015 Kriss LYNCH, Maddy Muniz [facility], Maddy Orozco Start : 05-Nov-2015 End : 05-Dec-2015 Inactive DOXYCYCLINE HYCLATE, 100MG (Oral Tablet) 1 (one) Tablet Twice daily for 0 days Quantity: 60 {Tablet} Refills: 0 Ordered:06-Sep-2010 Bibi Jain LPN Start : 23-Apr-2009 End : 06-Sep-2010 Inactive DRISDOL, 78676RTYZ (Oral Capsule) 1 Capsule twice weekly for [...] Start : 23-Apr-2009 End : 06-Sep-2010 Inactive OneToSabrix 2 w/Device Kit 1 (one) Kit test bid for 90 days Quantity: 1 Kit Refills: 0 Ordered:05-Sep-2016 Maddy Monterroso CNP, CNP, Mary E Start : 05-Sep-2016 End : 04-Dec-2016 Inactive [...] {Capsule_DR} Refills: 0 Ordered:02-Jul-2012 Maddy Monterroso CNP, CNP, Mary E Start : 02-Jul-2012 End : 01-Aug-2012 Inactive Comments:Pt needs apt before more refills PRILOSEC OTC, 20MG (Oral Tablet Delayed Release) 1 (one) Tablet DR daily for 30 days Refills: 0 Ordered:31-Jul-2015 Maddy Monterroso CNP, CNP, Mary E Start : 27-Jun-2015 End : 27-Jul-2015 Inactive [...] Quantity: 30 {Capsule} Refills: 0 Ordered:20-Jul-2017 Slarb JET WORKER, Grace Start : 15-Dec-2016 End : 20-Jul-2017 Inactive Vitamin D3 2000 UNIT Oral Capsule 1 (one) Capsule daily for 0 days Quantity: 30 {Capsule} Refills: 0 Ordered:19-May-2016 Kriss LYNCH, Maddy Muniz CNP, Keyana Start : 11-Feb-2016 End : 19-May-2016 Inactive ATORVASTATIN CALCIUM, 40MG (Oral Tablet) 1 (one) Tablet daily for 0 days Quantity: 90 {Tablet} Refills: 3 Ordered:23-Apr-2015 Slarb JET WORKER, Grace Start : 22-Jan-2015 End : 23-Apr-2015 Discontinued Bromfed DM 30-2-10 MG/5ML Oral Syrup 10 Milliliter q4hr prn for 0 days Quantity: 120 {Milliliter} Refills: 0 Ordered:08-Aug-2016 Slarb JET WORKER, Grace Start : 03-Jun-2016 End : 08-Aug-2016 Discontinued [facility] Oral Capsule 1 (one) Capsule Capsule daily for 0 days Quantity: 30 {Capsule} Refills: 0 Ordered:11-Feb-2016 Slarb JET WORKER, Grace Start : 11-Jun-2015 End : 11-Feb-2016 Discontinued DIAZEPAM, 5MG (Oral Tablet) 1 Tablet q8hrs prn for 30 days Quantity: 30 {Tablet} Refills: 0 Ordered:21-Dec-2009 Ramonita East DO Start : 21-Dec-2009 End : 21-Dec-2009 Discontinued DOCUSATE SODIUM, 100MG (Oral Capsule) 1 cap bid, prn for 0 days Refills: 0 Ordered:09-Aug-2007 Tashia Casiano End : 09-Aug-2007 Discontinued ERGOCALCIFEROL, 73803SZHG (Oral Capsule) 1 (one) Capsule Capsule twice [...] Thyroid mass (246.9) Comments: enlarging, has seen [place] in past [place] 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 Ordering Dr: Tracey Barnhart MD Date: 09/16/17 Location: [facility] Sex: F C Admitted: Test Reason : [...] ECG Confirmed by ROD BENDER MD ([id number]), order editor ALEJANDRA AGOSTO ([id number]) on 09/18/2017 1:36:25 PM Referred By: Tracey Barnhart Confirmed By:ROD BENDER MD 09/18/17 1336 Date Rod Bender MD CC: Maddy Monterroso NP; Tracey Barnhart MD Signed 17-Sep-2017 Operative Report Result: Comments: See Note; NOTES: [facility] Medical Records Department [address] [place] [address] Operative Report 09/17/17 1454 MR#: [id number] Acct: [id number] Name: DAYANARA MURRAY Rep #: [id number] : 1960 56 From: Tracey Barnhart MD PCP: Maddy Monterroso NP Status: REG SDC Y Location: [place] [address] Report of Operation Date of Procedure: 09/17/17 Pre-Operative Diagnosis: compl ex right adexexal mass Post-Operative Diagnosis: Pelvic mass, adhesions of colon to anterior abdominal wall and vaginal cuff Surgery/Procedure Performed:: Diagnostic laparascopy, cystoscopy Description of Surgical Findings:: pelvic mass in midline over bladder and vaginal cufff, ovary not well defined but under adehsions. Adhesions of colon to anterior abdominal wall electrical engineer: Cardenas electrical engineer: Zaki MS3 Type of Anesthesia:: General Anesthesiologist: [...] further intervention we will recommend consultation with [facility] oncology at a tertiary care center. The [...] Date Tracey Barnhart MD CC: Maddy Monterroso SOLAR PROCESS ENGINEER; Tracey Barnhart MD Signed 17-Sep-2017 Operative Report Result: Comments: See Note; NOTES: [facility] Medical Records Department [address] [place] [address] Operative Report 09/17/17 1310 MR#: [id number] Acct: [id number] Name: DAYANARA MURRAY Rep #: [id number] : 1960 56 From: Tracey Barnhart MD PCP: Maddy Monterroso NP Status: REG SDC Y Location: [place] [address] ADDENDUM by Tracey Barnhart MD on 09/17/17 [...] left tube not able to be identified electrical engineer: Angela Bennett Type of Anesthesia:: General Anesthesiologist: [...] Operative Report Result: Comments: See Note; NOTES: [facility] Medical Records Department [address] [place] [address] Operative Report 09/17/17 1310 MR#: [id number] Acct: [id number] Name: DAYANARA MURRAY Rep #: [id number] : 1960 56 From: Tracey Barnhart MD PCP: Maddy Monterroso NP Status: REG SDC Y Location: [place] [address] Report of Operation Date of Procedure: 09/17/17 [...] left tube not able to be identified electrical engineer: Angela Baumann Type of Anesthesia:: General Anesthesiologist: [...] skin glue and the student with me tripp nt.. The vaginal instruments were removed and [...] Discharge Instruction Result: Comments: See Note; NOTES: [facility] Medical Records Department [address] [place] [address] Instructions for Home/Discharge Instructions 09/17/17 1229 MR#: [id number] Acct: [id number] Name: DAYANARA MURRAY Rep #: [id number] : 1960 56 From: Tracey Barnhart MD PCP: Maddy Monterroso NP Status: REG [facility] Discharge Diet: No Restrictions - Increase fluid [...] HCl 500 mg PO DAILY 09/15/17 Hydrocodone/Acetaminophen [Atchison 5-325 Tablet] 1 each PO Q6H PRN PRN 6 Days #20 tablet 09/17/17 Ibuprofen [ Motrin] 600 mg PO Q6H PRN #30 tab 09/17/17 The following prescriptions were given: Hydrocodone/Acetaminophen [[place]ch[place] 5-325 Tablet] 1 each PO Q6H PRN PRN 6 Days #20 tablet PRN Reason: Pain Ibuprofen [Mo luz] 600 mg PO Q6H PRN #30 tab PRN Reason: Pain Primary Care Physician: Maddy Monterroso [Primary Care Provider] - Please Follow Up With: Tracey Barnhart MD - [phone] When: 1-2 weeks or as needed in my office 09/17/17 1230 <Electronically signed by Tracey Barnhart MD> Date Tracey Barnhart MD CC: Maddy Monterroso NP 26-Aug-2017 Abdomen/Pelvis without Cont Result: Comments: See Note; NOTES: [facility] Imaging Services [address] [place] [address] Abdomen/Pelvis without Cont MR#: [id number] Acct: [id number] Name: DAYANARA MURRAY Rep # : [id number] : 1960 F 56 From: Alejandra Urban MD PCP: Maddy Monterroso NP Status: REG CLI Study: Abdomen/Pelvis without Cont Date of Exam: 08/26/17 Exam# [id number] Ordering Dr: Maddy Monterroso Abdomen And Pelvis [...] supp ort , CC: Maddy Monterroso NP Cut Off Tender Glass: Signed 04-Aug-2016 Kidney and Bladder Result: Comments: See Note; NOTES: [facility] Imaging Services [address] [place] [address] Endy 4d Kidney and Bladder MR#: [id number] Acct: [id number] Name: DAYANARA MURRAY Rep #: [id number] : 1960 F 55 From: Jamie Monique DO PCP: Maddy Monterroso Status: REG CLI Study: Kidney and Bladder Date of Exam: 08/04/16 Exam# [id number] Ordering Dr: Maddy Monterroso STUDY: RENAL ULTRASO [...] at 19:24 EST Tel , Service support [phone], CC: Maddy Monterroso Cut Off Tender Glass: Signed Family History Unknown Family Member Name Dates Details Father Comments: at 63 [place], lung trauma Status: Active Social History Name Dates Details Alcohol Use Comments: Occasional alcohol use Status: Active Caffeine Use Comments: 2 QD Status: Active Exercise History Comments: None Status: Active Living Situation Comments: , Status: Active 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 [address] BEDSIDE GLU 98 mg/dL (Normal) Range: 70-110 Comments: MANAGEMENT OF PATIENT CARE PER NURSING PROTOCOL 20-Yuw-040366:18 Bedside Glucose Comments: [facility] [address] [place] [address] BEDSIDE GLU 94 mg/dL (Normal) Range: 70-110 Comments: MANAGEMENT OF PATIENT CARE PER NURSING PROTOCOL 02-Xad-660246:09 Hemoglobin A1c Comments: [facility] [address] [place], [address] HGB A1C 6.2 % (Normal) Range: 4.2-6.3 57-Qil-855206:59 Basic Metabolic Profile (BMP) Comments: [facility] [address] [place], [address] GAP 8 (Normal) Range: 5-15 [...] Comments: Please note revised GLUCOSE reference range wieqdwkvf98/02/2018. 71-Pqu-527551:59 CBC-Complete Blood Cnt No Diff Comments: [facility] [address] [place], [place], [address] MPV 11.9 fL (Normal) Range: 6.2-12.0 PLT [...] 4.2-5.4 WBC 7.8 K/mm3 (Normal) Range: 4.4-11.0 30-Iwq-376408:59 Thyroid Stim Hormone (TSH) Comments: [facility] [address] [place], [address] TSH 1.31 {uIU/mL} (Normal) Range: 0.358-3.74 93-Pkh-703170:59 Type AND Screen Comments: Surgery Date: 09/17/17Hx of Preganancy in last 3 Months NoEver experience any problems with transfusion(s)? NHx of Transfusion in last 3 Months NReason for Type AND Screen/Red Cells: SURGERYSURGI EJ PROCEDURE: [facility] [address] [place], [place], [address] Antibody Screen NEGATIVE (Normal) BLOOD TYPE GEL A POSITIVE (Normal) 22-Tgm-671099:52 HgA1C , Office (71467) HgA1C , Office 5.6 % (Normal) Range: 4.6 - 7.1 :52 Blood Glucose , Office (00704) Blood Glucose , Office 87 (Normal) :31 Urinalysis, Office (75016) UA - NITRITE Negative (Normal) URINE UROBILINGN OSMAN TIMED Normal mg/dL (Normal) UA - PROTEIN Negative mg/dL (Normal) UA - PH 5 (Abnormal) UA - BLOOD Negative (Normal) UA - SPECIFIC GRAVITY 1.020 (Normal) UA - KETONES Negative mg/dL (Normal) UA - BILIRUBIN Negative (Normal) UA - GLUCOSE Negative (Normal) :08 Basic Metabolic Profile (BMP) Comments: [facility] [address] [place], [place], [address] GAP 8 (Normal) Range: 5-15 CO2 31.0 [...] :08 CBC-Complete Blood Cnt No Diff Comments: [facility] [address] [place], [address] MPV 12.3 fL (Abnormal) Range: 6.2-12.0 PLT [...] (Normal) Range: 4.4-11.0 :17 HgA1C , Office (21303) Comments: 5.6 HgA1C , Office 5.6 % (Normal) Range: 4.6 - 7.1 :17 Blood Glucose , Office (46293) Comments: 98 Blood Glucose , Office 98 (Normal) 0-Vsi-359877:42 Microscopic Examination Comments: PATIENT NOT FASTINGPERFORMED BY: [employer] Npidch9068 [facility] [id number] Bacteria Few (Normal) Mucus Threads Present (Normal) Cast Type Hyaline casts (Normal) Casts Present {/lpf} (Abnormal) Epithelial Cells (non renal) 0-10 {/hpf} (Normal) Range: 0 - 10 RBC 0-2 {/hpf} (Normal) Range: 0 - 2 WBC 0-5 {/hpf} (Normal) Range: 0 - 5 3-Lxn-259043:42 MICROALBUMIN: CREATININE RATIO Comments: PATIENT NOT FASTINGPERFORMED BY: [employer] Applin6370 [facility] [id number] (23217) AND (69874) Microalb/Creat Ratio 4.1 {mg/g_creat} (Normal) Range: 0.0-30.0 Microalbumin, Urine 3.5 ug/mL (Normal) Creatinine, Urine 84.7 mg/dL (Normal) 6-Ipw-759672:42 URINALYSIS, W/ MICRO Comments: PATIENT NOT FASTINGPERFORMED BY: [facility] [id number] Information: [id number] SRC: ([id number]) Microscopic Examination See below: (Normal) Comments: Microscopic was indicated and was performed. Nitrite, Urine Negative (Normal) Urobilinogen,Semi-Qn 0.2 mg/dL (Normal) Range: 0.2-1.0 Bilirubin Negative (Normal) Occult Blood Negative (Normal) Ketones Negative (Normal) Glucose Negative (Normal) Protein Negative (Normal) WBC Esterase 2+ (Abnormal) Appearance Clear (Normal) Urine-Color Yellow (Normal) pH 5.5 (Normal) Range: 5.0-7.5 Specific Flint 1.019 (Normal) Range: 1.005-1.030 2-Kmx-580300:42 URINE WILMER CULTURE-IDENTIFICATN Comments: PATIENT NOT FASTINGPERFORMED BY: [facility] [id number] ([id number]) Result 1 MUG (Normal) Comments: Mixed urogenital flora1,000 Colonies/mL Urine Culture,Comprehensive Final report (Normal) :16 Urinalysis, Office (82111) UA - LEUKOCYTE ESTERASE Small (Normal) UA - NITRITE Negative (Normal) URINE UROBILINGN OSMAN TIMED Normal mg/dL (Normal) UA - PROTEIN Negative mg/dL (Normal) UA - PH 5 (Abnormal) UA - BLOOD Negative (Normal) UA - SPECIFIC GRAVITY 1.025 (Normal) UA - KETONES Negative mg/dL (Normal) UA - BILIRUBIN Negative (Normal) UA - GLUCOSE Negative (Normal) :20 Urinalysis, Office (08300) UA - LEUKOCYTE ESTERASE Negative (Normal) UA - NITRITE Negative (Normal) URINE UROBILINGN OSMAN TIMED Normal mg/dL (Normal) UA - PROTEIN Negative mg/dL (Normal) UA - PH 5 (Abnormal) UA - BLOOD Negative (Normal) UA - SPECIFIC GRAVITY 1.010 (Normal) UA - KETONES Negative mg/dL (Normal) UA - BILIRUBIN Negative (Normal) UA - GLUCOSE Negative (Normal) 05-Tof-311950:09 Microscopic Examination Comments: PATIENT NOT FASTINGPERFORMED BY: [employer] [facility] [id number] Bacteria Few (Normal) Mucus Threads Present (Normal) Epithelial Cells (non renal) 0-10 {/hpf} (Normal) Range: 0 - 10 RBC 3-10 {/hpf} (Abnormal) Range: 0 - 2 WBC 11-30 {/hpf} (Abnormal) Range: 0 - 5 25-Myw-399543:09 URINE WILMER CULTURE-IDENTIFICATN Comments: PATIENT NOT FASTINGPERFORMED BY: [facility] [id number] (08447) Antimicrobial MIHEAD (Normal) Comments: S = Susceptible; [...] mL (Abnormal) Urine Final report Culture,Comprehensive (Abnormal) 11-Hhw-341551:09 URINALYSIS (15617) Comments: PATIENT NOT FASTINGPERFORMED BY: [employer] [facility] [id number] Information: SRC:UC Microscopic Examination See below: (Normal) Comments: Microscopic was indicated and was performed. Nitrite, Urine Negative (Normal) Urobilinogen,Semi-Qn 0.2 mg/dL (Normal) Range: 0.2-1.0 Bilirubin Negative (Normal) Occult Blood 1+ (Abnormal) Ketones Negative (Normal) Glucose Negative (Normal) Protein Negative (Normal) WBC Esterase 2+ (Abnormal) Appearance Clear (Normal) Urine-Color Yellow (Normal) pH 7.0 (Normal) Range: 5.0-7.5 Specific Flint 1.007 (Normal) Range: 1.005-1.030 38-Kuu-831454:29 Urinalysis, Office (24602) UA - LEUKOCYTE ESTERASE Small (Normal) UA - NITRITE Negative (Normal) URINE UROBILINGN OSMAN TIMED Normal mg/dL (Normal) UA - PROTEIN Negative mg/dL (Normal) UA - PH 7 (Normal) UA - BLOOD Non Hemolyzed Moderate (Normal) UA - SPECIFIC GRAVITY 1.015 (Normal) UA - KETONES Negative mg/dL (Normal) UA - BILIRUBIN Negative (Normal) UA - GLUCOSE Negative (Normal) 62-Mjt-468914:06 URINE WILMER CULTURE-IDENTIFICATN Comments: PATIENT NOT FASTINGPERFORMED BY: [facility] Aoztuw3529 [facility] [id number] Information: SRC:UC ([id number]) Result 1 MUG (Normal) Comments: Mixed urogenital flora1,000 Colonies/mL Urine Culture,Comprehensive Final report (Normal) 97-Bkw-316962:21 Urinalysis, Office (10667) UA - LEUKOCYTE ESTERASE Trace (Normal) UA - NITRITE Negative (Normal) URINE UROBILINGN OSMAN TIMED Normal mg/dL (Normal) UA - PROTEIN Negative mg/dL (Normal) UA - PH 7 (Normal) UA - BLOOD Negative (Normal) UA - SPECIFIC GRAVITY 1.020 (Normal) UA - KETONES Negative mg/dL (Normal) UA - BILIRUBIN Negative (Normal) UA - GLUCOSE Negative (Normal) 1-Okm-855712:05 Blood Glucose , Office (11019) Comments: 76 Blood Glucose , Office 76 (Normal) 9-Rjs-092131:44 Urinalysis, Office (25181) UA - LEUKOCYTE ESTERASE Small (Normal) UA - NITRITE Negative (Normal) URINE UROBILINGN OSMAN TIMED Normal mg/dL (Normal) UA - PROTEIN Negative mg/dL (Normal) UA - PH 5 (Abnormal) UA - BLOOD Negative (Normal) UA - SPECIFIC GRAVITY 1.030 (Abnormal) UA - KETONES Negative mg/dL (Normal) UA - BILIRUBIN Negative (Normal) UA - GLUCOSE Negative (Normal) 96-Iho-934714:50 Blood Glucose , Office (44846) Blood Glucose , Office 102 (Normal) 17-Yhc-180069:32 Hemoglobin A1c Comments: Test performed at:[facility] [address] [place] [address] HGB A1C 7.1 % (Abnormal) Range: 4.2-6.3 09-Xka-533610:58 Blood Glucose , Office (59489) Blood Glucose , Office 99 (Normal) 48-Cps-207397:49 ANTINUCLEAR ANTIBODIES DIRECT Comments: Test performed at:[facility] [address] [place] [address] TING-DIRECT Negative (Normal) Comments: Performed at: [address] [id number] Director: Rasheed Ziegler PhD, Phone: [phone] 43-Ecb-480511:49 Erythrocyte Sed Rate Comments: Test performed at:[facility] [address] [place] [address] SED RATE 10 mm/h (Normal) Range: 0-30 89-Rfr-168132:49 Rheumatoid Factor Comments: Test performed at:[address] [address] RHEUMATOID FAC < 10.0 {IU/mL} (Normal) 33-Rzt-855424:49 Sjogren's Antibodies A/B Comments: Test performed at:[address] [address] Anti-SS-B < 0.2 {AI} (Normal) Range: 0.0-0.9 Anti-SS-A < 0.2 {AI} (Normal) Range: 0.0-0.9 62-Soe-94418:27 Pathology Report Comments: PERFORMED BY: [facility] Cyto Pssbs35109 [facility] [id number] BY: [facility] Dermatopathology Vyghilp[address] [id number] Information: [id number] See MATER Comments: Material submitted: .SHAVE BIOPSY [...] SUBMITTEDENTIRELY IN A SINGLE CASSETTE.LMS/JASPathologist provided ICD-9:078.10CPT .478400 :05 HgA1C , Office (43427) Comments: 7.0 HgA1C , Office 7.0 % (Normal) Range: 4.6 - 7.1 46-Kgc-452497:05 Blood Glucose , Office (97942) Comments: 93 Blood Glucose , Office 93 (Normal) 35-Bdj-344554:25 HgA1C , Office (97874) HgA1C , Office 6.8 % (Normal) Range: 4.6 - 7.1 :19 HgA1C , Office (66378) HgA1C , Office 8.0 % (Abnormal) Range: 4.6 - 7.1 :19 Blood Glucose , Office (91152) Blood Glucose , Office 153 (Normal) Comments: non-fasting :58 HgA1C , Office (18262) HgA1C , Office 7.2 % (Abnormal) Range: 4.6 - 7.1 :34 URINE WILMER CULTURE-OSMAN COL Comments: PATIENT NOT FASTINGPERFORMED BY: [facility] CenterDkbtqu9359 [facility] [id number] Information: SRC:UR [id number] COUNT (35368) Result 1 MUG (Normal) Comments: Mixed urogenital flora25,000-50,000 colony forming units per mL Urine Final report (Normal) Culture,Comprehensive 96-Sbo-185833:40 Urinalysis, Office (13346) UA - LEUKOCYTE ESTERASE Negative (Normal) UA - NITRITE Negative (Normal) URINE UROBILINGN OSMAN TIMED Normal mg/dL (Normal) UA - PROTEIN Negative mg/dL (Normal) UA - BLOOD Negative (Normal) UA - SPECIFIC GRAVITY 1.025 (Normal) UA - PH 7 (Normal) UA - KETONES Negative mg/dL (Normal) UA - BILIRUBIN Negative (Normal) UA - GLUCOSE Negative (Normal) 72-Jbq-271984:21 Rapid Strep Test, Office (47273) Rapid Strep Test, Office Positive (Normal) 32-Scy-621233:21 Rapid Flu (35057 x 2) Influenza A Ag negative a and b (Normal) 58-Org-501843:06 URINE WILMER CULTURE-OSMAN COL Comments: PATIENT NOT FASTINGPERFORMED BY: [facility]Co[facility] CenterDuvian2911 [facility] [id number] Information: SRC:UR [id number] COUNT (08603) Antimicrobial MIHEAD (Normal) Comments: S = Susceptible; [...] mL (Normal) Urine Final report Culture,Comprehensive (Normal) 81-Ogt-462308:46 Urinalysis, Office (94492) UA - BILIRUBIN Negative (Normal) UA - BLOOD Negative (Normal) UA - GLUCOSE Negative (Normal) UA - KETONES Moderate mg/dL (Normal) Comments: trace UA - LEUKOCYTE ESTERASE Large (Normal) UA - NITRITE Negative (Normal) UA - PH 7.5 (Normal) UA - PROTEIN Negative mg/dL (Normal) UA - SPECIFIC GRAVITY 1.025 (Normal) URINE UROBILINGN OSMAN TIMED Normal mg/dL (Normal) Comments: 1.0E.U/dL 8-App-527393:52 CBCD,SMEAR DIFF RED CELL MORPH SeeNote {NORMAL} [...] 4.2-5.4 WBC 8.9 K/mm3 (Normal) Range: 4.4-11.0 7-Lfy-477677:52 LIVER D BILI 0.11 mg/dL (Normal) Range: 0.00-0.30 ALT 45 U/L (Normal) Range: 12-78 T BILI 0.60 mg/dL (Normal) Range: 0.00-1.00 ALK P 67 U/L (Normal) Range: 50-136 AST 37 U/L (Normal) Range: 15-37 ALB 4.2 g/dL (Normal) Range: 3.4-5.0 T PROT 7.7 g/dL (Normal) Range: 6.4-8.2 4-Ygg-942038:14 LIVER/SPLEEN SCAN WITH FLOW Radiology Report See [...] ITS IMPORTSign by Rasheed Barrera MD on 06/13/11 173 Sign by: Rasheed Barrera MD :56 Blood Glucose , Office (75234) Blood Glucose , Office 135 (Normal) :56 HgA1C , Office (62705) HgA1C , Office 6.0 % (Normal) Range: 4.6 - 7.1 :14 Rapid Strep Test, Office (46484) Rapid Strep Test, Negative (Normal) Office 22-Ouz-59033:00 CULTURE, THROAT See Note (Normal) Comments: Normal throat alexsandra isolated. No beta-hemolyticstreptococcus isolated. :24 VIT D,25 93880 19.7 ng/mL (Abnormal) Range: 32.0-100.0 Comments: Recent studies consider the lower limit of 32.0 ng/mL to carmen threshold for optimal health.Inderjit COLEMAN. J Nutr. 2004;135(2):317-22.Performed at: [address] Director: Mariel Deleon MD, Phone: [phone] :[phone] HGB A1C 5.4 % (Normal) Range: 4.0-6.3 Comments: The methodology of Hgb A1C has changed to [place] significant changes in patient results are expected. The reference range remains the same. :01 TSH 1.49 {uIU/mL} (Normal) Range: 0.358-3.74 :07 Blood Glucose , Office (67243) Blood Glucose , Office 108 (Normal) :42 HgA1C , Office (18964) HgA1C , Office 5.8 % (Normal) Range: 4.6 - 7.1 :42 Blood Glucose , Office (87134) Blood Glucose , Office 99 (Normal) :22 HgA1C , Office (39054) HgA1C , Office 5.8 % (Normal) Range: 4.6 - 7.1 :22 Blood Glucose , Office (65075) Blood Glucose , Office 93 (Normal) :02 [...] T PROT 7.4 g/dL (Normal) Range: 6.4-8.2 1-Ebx-775860:42 URINALYSIS W/O MICRO (34275) UA - APPEARANCE clear (Normal) UA - [...] (Normal) UA - URINE SEDIMENT neg (Normal) 25-Lnr-727221:30 CH/GC DNA 36830 CHLAM DNA 96681 SeeNote (Normal) Comments: Result: Negative GC DNA PROBE SeeNote (Normal) Comments: Result: Negative No swab in specimen when received.Test valid for male urethral and female endocervicalspecimens only.Performed At: [facility] [place], [place] [id number] : AVEL PREP See Note {PER_HPF} Comments: FUNGAL ELEMENTS NONE SEEN 30 (Normal) : WET PREP See Note (Normal) Comments: [facility] 95-Slb-032899:39 Urinalysis, Office (27369) Comments: ABN signed PE UA - BILIRUBIN Negative (Normal) UA - BLOOD Negative (Normal) UA - GLUCOSE Negative (Normal) UA - KETONES Negative mg/dL (Normal) UA - LEUKOCYTE ESTERASE Negative (Normal) UA - NITRITE Negative (Normal) UA - PH 6.0 (Normal) UA - PROTEIN Negative mg/dL (Normal) UA - SPECIFIC GRAVITY 1.005 (Normal) URINE UROBILINGN OSMAN TIMED Normal mg/dL (Normal) 95-Kxh-994467:35 CBCD,SMEAR DIFF CELLS COUNTED 100 (Normal) EOS [...] T PROT 6.9 g/dL (Normal) Range: 6.4-8.2 27-Qde-796521:35 LIPID CHOL 196 mg/dL (Normal) Comments: <200 [...] See Note (Normal) Comments: #1- STUDIES AT [employer] HAVE CONFIRMED THE OBSERVATIONS OF OTHERS WHO HAVE DEMONSTRATED THAT PREVOTELLA, PORPHYROMONAS AND BACTEROIDES SPECIES OTHER THAN B.FRAGILIS GROUP ARE ROUTINELY ROBIN CEPTIBLE TO CEFOXITIN, CHLORAMPHENICOL, AND METRONIDAZOLE AND ARE USUALLY RESISTANT TO PENICILLIN. [facility]. ORIGINAL RE PORT ON FILE IN LAB CONTAINS ADDITIONAL TEST SITE INFORMATION. ANAEROBIC CULT TO REF LAB 2 ANAEROBIC ORGANISMS ISOLATED AND IDENTIFIED. ORGANISM 1: PREVOTELLA BIVIA-ORGANISM 2: FINEGOLDIA JOSÉ :40 CH/GC [id number] CHLAM DNA SeeNote (Normal) Comments: Result: Negative GC DNA PROBE SeeNote (Normal) Comments: Result: Negative Performed At: [facility] [place], [place] [id number] :40 CULTURE, URINE URINE CULTURE See Note [...] TRICH RAREWBC 2-4 0 :04 Urinalysis, Office (15763) Comments: ABn signed UA - BILIRUBIN Negative (Normal) UA - BLOOD Negative (Normal) UA - GLUCOSE Negative (Normal) UA - KETONES Negative mg/dL (Normal) UA - LEUKOCYTE ESTERASE Small (Normal) UA - NITRITE Negative (Normal) UA - PH 5.0 (Normal) UA - PROTEIN Negative mg/dL (Normal) UA - SPECIFIC GRAVITY 1.010 (Normal) URINE UROBILINGN OSMAN TIMED 2 mg/dL (Normal) 2-Gyb-836698:10 CULTURE, URINE URINE CULTURE See Note {CFU/mL} (Normal) Comments: COLONY COUNT >100,000 ORGANISM 1: STREPTOCOCCUS AGALACTIAE (B) STREPTOCOCCUS AGALACTIAE (B): REACTION CEFAZOLIN $ <=8 S CLI NDAMYCIN, NON-EC $$ <=0.25 S ERYTHROMYCIN NON-EC $$ <=0.25 S LEVOFLOXACIN $$ <=1 S NITROFURANTOIN $ <= 32 S PENICILLIN G (STREP) $$ <=0.03 S TETRACYCLINE NON-EC $$ >=16 R VANCOMYCIN NON-EC $$ <=0.5 S 4-Aem-063175:37 Urinalysis, Office (52657) UA - BILIRUBIN Negative (Normal) UA - [...] 1.49 INDETERMINANT > OR = 1.50 SUGGEST GA :42 HYSTERECT P-HYST (Normal) Comments: OPERATION Hysterectomy, [...] 01/01/07 ANTIBODY SCREEN NEGATIVE (Normal) Comments: COMMENTS: [facility] OR 12/31/06 : BLOOD TYPE PT A POSITIVE (Normal) Comments: COMMENTS: [facility] OR 12/31/06 :00 :00 CBCD Comments: COMMENTS: RESULTS TO DR. MONTOYA AND DR. EAST, [facility] OR 12/31/06 BAND 5 % (Normal) [...] 11.6-14.6 WBC 9.8 K/mm3 (Normal) Range: 4.4-11.0 :00 COMP METABOLIC Comments: COMMENTS: RESULTS TO DR. MONTOYA AND DR. EAST, [facility] OR 12/31/06 A/G 1.1 {RATIO} (Normal) [...] T PROT 6.8 g/dL (Normal) Range: 6.4-8.2 77-Ivl-677672:00 LIPID Comments: COMMENTS: [facility] OR 12/31/06 CHOL 155 mg/dL (Normal) [...] mg/dL VLDL 23 mg/dL (Normal) Range: 5-40 :00 LIVER Comments: COMMENTS: [facility] OR 12/31/06 ALB 3.5 g/dL (Normal) Range: 3.4-5.0 ALK P 54 U/L (Normal) Range: 50-136 ALT 32 [iU]/L (Normal) Range: 30-65 AST 20 U/L (Normal) Range: 15-37 D BILI 0.07 mg/dL (Normal) Range: 0.00-0.30 T BILI 0.23 mg/dL (Normal) Range: 0.00-1.00 T PROT 6.8 g/dL (Normal) Range: 6.4-8.2 :00 ,SERUM Comments: COMMENTS: RESULTS TO DR. MONTOYA AND DR. EAST, [facility] OR 12/31/06 HCGSQUAL SeeNote m[iU]/mL (Normal) Comments: Result: NEGATIVE : PRO TIME Comments: COMMENTS: RESULTS TO DR. MONTOYA AND DR. EAST, [facility] OR 12/31/06 INR 1.0 (Normal) PROTIME 12.1 s (Normal) Range: 10.6-13.2 : PTT 23.5 s (Abnormal) Comments: COMMENTS: RESULTS TO DR. MONTOYA AND DR. EAST, [facility] OR 12/31/06 Range: 24.6-36.6 :25 ANAEROBIC CULT See Note (Normal) Comments: AMOUNT GROWTH GROWTH ORGANISM 1: PREVOTELLA BIVIA- 87-Qqq-193058:25 CH/GC DNA 51842 CHLAM DNA 12977 SeeNote (Normal) Comments: Result: Negative GC DNA PROBE SeeNote (Normal) Comments: Result: Negative Test valid for male urethral and female endocervicalspecimens only.Performed At: [facility] [place], [place] [id number] 13-Zys-319167:25 GENT CULT COMP GENT CULT COMP See [...] Note (Normal) Comments: MOTILE TRICH 1+WBC 1 11-Axm-638936:00 CULTURE, URINE URINE CULTURE See Note {CFU/mL} (Normal) Comments: COLONY COUNT >100,000 ORGANISM 1: STREPTOCOCCUS AGALACTIAE (B) STREPTOCOCCUS AGALACTIAE (B): REACTION CEFAZOLIN $ <=8 S CLI NDAMYCIN, NON-EC $$ <=0.25 S ERYTHROMYCIN NON-EC $$ <=0.25 S LEVOFLOXACIN $$ <=1 S NITROFURANTOIN $ <= 32 S PENICILLIN G (STREP) $$ <=0.03 S TETRACYCLINE NON-EC $$ >=16 R VANCOMYCIN NON-EC $$ <=0.5 S 61-Xsg-592129:57 Urinalysis, Office (20071) Comments: ABN signed UA - BILIRUBIN Negative (Normal) UA - BLOOD Hemolyzed Trace (Normal) UA - GLUCOSE Negative (Normal) UA - KETONES Negative mg/dL (Normal) UA - LEUKOCYTE ESTERASE Moderate (Normal) UA - NITRITE Negative (Normal) UA - PH 6.5 (Normal) UA - PROTEIN Negative mg/dL (Normal) UA - SPECIFIC GRAVITY 1.010 (Normal) URINE UROBILINGN OSMAN TIMED Normal mg/dL (Normal) 79-Mna-70111:00 ASPIRATION P-ASPS (Normal) Comments: OPERATION FNA right [...] mg/dL (Normal) Range: 34-200 Comments: Performed At: [facility] [place] [id number] :38 IRON+TIBC IRON SATURATION 4.0 % (Abnormal) Range: 15.0-55.0 IRON, SERUM 19 ug/dL (Abnormal) Range: 35-150 TIBC 481 ug/dL (Abnormal) Range: 250-450 :38 LDH 205 U/L (Abnormal) Range: 100-190 :38 RETIC 1.19 % (Normal) Range: 0.5-1.5 :55 GLU GTT-2 HOUR 110 mg/dL (Normal) Comments: 2HR GTT GLU 2 HR GLU GTT-2 HOUR from 515:[id number]. Range: 70-120 :55 GLU GTT-1 HOUR 162 mg/dL (Normal) Comments: 2HR GTT GLU 1 HR GLU GTT-1 HOUR from 0516:[id number]. Range: 120-170 :28 GLU GTT-30 min. 175 mg/dL (Abnormal) Comments: 2HR GTT GLU 1/2 HR GLU GTT-30 min. from 515:[id number]. Range: 110-170 :46 CBCD,SMEAR DIFF ANISO 1+ [...] Comments: 2HR GTT FASTING GLU GTT-FASTING from 0516:[id number]. Range: 70-110 Comments: GLUCOSE TOLERANCE TEST Reference Interval Non- Adults Fasting 70 - 110 30 minutes 110 - 170 1 hour 120 - 170 2 hour 70 - 120 3 hour 70 - 110 4 hour 70 - 110 5 hour 70 - 110 80-Sua-426727:46 LIPID CHOL 216 mg/dL (Abnormal) Comments: <200 [...] mg/dL VLDL 17 mg/dL (Normal) Range: 5-40 21-Jgq-325733:46 MICROALBUMIN,UR 9.7 mg/L (Normal) :46 ROUTINE UA [...] 0.2 EU/dl (Normal) Range: 0.2 - 1.0 00-Taz-680359:46 TSH 1.50 {uIU/mL} (Normal) Range: 0.34-4.82 :05 PELVIC (NON-PREG) (HP) Radiology Report See Note (Normal) Comments: Exam Number: [id number] THYROID ULTRASOUND HISTORYThyroid nodule. High resolution real [...] for review. Reported By: MELI YE M.D. 95-Qkn-80798:05 THYROID () Radiology Report See Note (Normal) Comments: Exam Number: [id number] THYROID ULTRASOUND HISTORYThyroid nodule. High resolution real [...] for review. Reported By: MELI YE M.D. 01-Rqw-533613:15 Urinalysis, Office (84696) Comments: done-jjp UA - BILIRUBIN Negative (Normal) UA - BLOOD Negative (Normal) UA - GLUCOSE Negative (Normal) UA - KETONES Negative mg/dL (Normal) UA - LEUKOCYTE ESTERASE Negative (Normal) UA - NITRITE Negative (Normal) UA - PH 5.0 (Normal) UA - PROTEIN Negative mg/dL (Normal) UA - SPECIFIC GRAVITY 1.000 (Normal) URINE UROBILINGN OSMAN TIMED Normal mg/dL (Normal) 96-Blp-388244:45 CULTURE, URINE URINE CULTURE See Note {CFU/mL} [...] VITAMIN D NOS : Follow up in Mar Indication: DEFICIENCY, VITAMIN D NOS Uncontrolled diabetes [...] : FOLLOW UP IN 4 WEEKS with [facility] to go over BS diary, diet etc Indication: Impaired fasting glucose Abnormal glucose tolerance test : FOLLOW UP IN 1 WEEK [facility] for meter instruction, begin metformin, etc [...] : Reviewed Diagnostic Tests: xrays rev from [facility] Indication: Sciatica Abnormal glucose tolerance test : [...] Indication: Urinary frequency Planned Observations LIPID PANEL (31211)Indication: Hypertension On: 13-Apr-20188:26 Request CBC & PLATELETS (AUTO) (72874)Indication: Hypertension On: 13-Apr-20188:26 Request CALCIFEDIOL (72996)Indication: Hypertension On: :26 Request METABOLIC PANEL, COMPREHENSIVE (72882)Indication: Hypertension On: 13-Apr-20188:25 Request HGB A1C (16169)Indication: Diabetes mellitus, controlled On: 25-Akw-003219:33 Request CBC, Platelets & Auto Diff (22730)Indication: Hypertension On: 18-Jan-2018 Request Lipid Panel (58306)Indication: Hypertension On: 18-Jan-2018 Request Metabolic Panel, Comprehensive (19267)Indication: Hypertension On: 18-Jan-2018 Request Metabolic Panel, Comprehensive (78305)Indication: Diabetes mellitus, controlled On: :28 Request HGB A1C (12457)Indication: Diabetes mellitus, controlled On: :28 Request TSH (34948)Indication: Diabetes mellitus, controlled On: 05-Mth-423377:50 Request Comments: mar 2017 URINALYSIS W MICROSCOPY (96422)Indication: Flank pain On: :09 Request URINE WILMER CULTURE-OSMAN COL COUNT (16872)Indication: Flank pain On: :08 Request CALCIFEDIOL (39345)Indication: DEFICIENCY, VITAMIN D NOS On: :39 Request Comments: to be done December 2016 LIPID PANEL (37043)Indication: Hypercholesteremia On: :38 Request Comments: print to be done prior to next visit URINALYSIS, W/ MICRO (71477)Indication: Kidney stone on right side On: :36 Request HGB A1C (76683)Indication: Hypercholesteremia On: :49 Request Lipid Panel (18038)Indication: Diabetes mellitus, controlled On: :49 Request Metabolic Panel, Comprehensive (83278)Indication: Diabetes mellitus, controlled On: :48 Request TSH (09778)Indication: Diabetes mellitus, controlled On: :48 Request CBC, Platelets & Auto Diff (63776)Indication: Diabetes mellitus, controlled On: :48 Request HGB A1C (33993)Indication: Uncontrolled diabetes mellitus type 2 without complications On: :46 Request CALCIFEDIOL (90294)Indication: Uncontrolled diabetes mellitus type 2 without complications On: :46 Request TSH (05713)Indication: Uncontrolled diabetes mellitus type 2 without complications On: :46 Request CBC, Platelets & Auto Diff (76314)Indication: Uncontrolled diabetes mellitus type 2 without complications On: :46 Request Lipid Panel (77127)Indication: Uncontrolled diabetes mellitus type 2 without complications On: :46 Request Metabolic Panel, Comprehensive (86701)Indication: Uncontrolled diabetes mellitus type 2 without complications On: :46 Request Metabolic Panel, Comprehensive (26272)Indication: Kidney stone on right side On: :44 Request PT (PROTHROMBIN TIME) (61344)Indication: Preop examination On: :20 Request CBC, Platelets & Auto Diff (48096)Indication: Preop examination On: 52-Xsl-613474:20 Request CBC, Platelets & Auto Diff (67245)Indication: Preop examination On: :19 Request Metabolic Panel, Comprehensive (80911)Indication: Preop examination On: 68-Nug-212257:19 Request Metabolic Panel, Basic (19947)Indication: Flank pain On: 81-Czp-696533:43 Request Hemoglobin Glyclated (HGB A1C) (92925)Indication: Uncontrolled diabetes mellitus type 2 without complications On: 5-Lad-744663:04 Request CREATININE CLEARANCE (22993)Indication: Abdominal pain, acute, right upper quadrant On: 99-Ria-329741:54 Request Comments: STAT Hemoglobin Glyclated (HGB A1C) (81200)Indication: Uncontrolled diabetes mellitus type 2 without complications On: 28-Rso-247050:25 Request HEPATIC FUNCTION PANEL (59172)Indication: Hypercholesteremia On: 73-Zth-163800:37 Request Comments: repeat Mid November fasting TSH (THYROID STIMULATING HORMONE) (19652)Indication: Uncontrolled diabetes mellitus type 2 without complications On: 05-Pby-646496:47 Request CALCIFIDIOL (65798) VIT D 25Indication: Uncontrolled diabetes mellitus type 2 without complications On: 07-Jfk-469975:47 Request MICROALBUMIN: CREATININE RATIO (89284) AND (84196)Indication: Uncontrolled diabetes mellitus type 2 without complications On: 72-Zdw-786466:47 Request METABOLIC PANEL, COMPREHENSIVE (15417)Indication: Uncontrolled diabetes mellitus type 2 without complications On: 18-Sds-792931:47 Request LIPID PANEL (85974)Indication: Uncontrolled diabetes mellitus type 2 without complications On: :47 Request Metabolic Panel, Comprehensive (14646)Indication: Uncontrolled diabetes mellitus type 2 without complications On: 44-Qgr-732753:44 Request Lipid Panel (97928)Indication: Uncontrolled diabetes mellitus type 2 without complications On: :44 Request Blood Glucose , Office (03113)Indication: Uncontrolled diabetes mellitus type 2 without complications On: 83-Xqg-577206:25 Request BLD CNT, MANUAL CELL COUNT, EACH (74972)Indication: Thyroid nodule On: 7-Nft-544685:56 Request URINALYSIS, AUTOMATED W/ MICRO (96635)Indication: Thyroid nodule On: 4-Fjb-730656:56 Request 24HR URINE CREATININE (41614)Indication: Thyroid nodule On: :56 Request MICROALBUMIN, TIMED 24 UR 323294 (76528)Indication: Thyroid nodule On: 7-Pvw-856873:56 Request CALCIFEDIOL (11612)Indication: Thyroid nodule On: 2-Iiq-809980:55 Request Metabolic Panel, Comprehensive (98236)Indication: Uncontrolled diabetes mellitus type 2 without complications On: 8-Bhh-518345:55 Request TSH (THYROID STIMULATING HORMONE) (54114)Indication: Thyroid nodule On: 7-Iye-068854:54 Request LIPID PANEL (02182)Indication: GERD (gastroesophageal reflux disease) On: 2-Xbv-005874:52 Request CBC WITH MANUAL DIFF (67245)Indication: Hypertension On: 39-Vzd-853530:00 Request Vitamin D Hydroxy (41620)Indication: Depression On: 91-Cte-636484:59 Request TSH (20447)Indication: Depression On: 78-Hrt-194442:59 Request URINALYSIS, W/ MICRO (76699)Indication: Hypertension On: 13-Zfd-595346:59 Request MICROALBUMIN: CREATININE RATIO (40568) AND (01124)Indication: Hypertension On: 05-Kje-865938:59 Request METABOLIC PANEL, COMPREHENSIVE (65431)Indication: Hypertension On: :59 Request LIPID PANEL (34299)Indication: Hypertension On: :59 Request CBC, Platelets & Auto Diff (14614)Indication: Fatigue On: :29 Request Metabolic Panel, Basic (60672)Indication: Fatigue On: :29 Request WILMER CULTURE-OTHER (06687)Indication: Pharyngitis, acute On: :25 Request Influenza A&B Viral Culture (56517)Indication: Pharyngitis, acute On: :21 Request T4, FREE (THYROXINE) (62578)Indication: Thyroid nodule On: 00-Hhi-152060:01 Request FREE TRIDOTHYRONINE (T3) (96723)Indication: Thyroid nodule On: 27-Pen-692406:00 Request TSH (THYROID STIMULATING HORMONE) (64029)Indication: Thyroid nodule On: 39-Uom-726738:00 Request HEPATIC FUNCTION PANEL (32572)Indication: Hepatomegaly On: 0-Nsq-207514:13 Request CBC with manual diff (69772)Indication: Hepatomegaly On: :13 Request HEPATIC FUNCTION PANEL (99829)Indication: Splenomegaly On: 5-Diu-241792:57 Request CBC with manual diff (20620)Indication: Splenomegaly On: 2-Yzp-944401:57 Request CCP ANTIBODY (04980)Indication: Pain in unspecified joint On: :10 Request SED RATE ERYTHROCYTE (24303)Indication: Pain in unspecified joint On: :10 Request C-REACTIVE PROTEIN (89833)Indication: Pain in unspecified joint On: 88-Kii-25150:10 Request RHEUMATOID FACTOR-QUANT (74317)Indication: Pain in unspecified joint On: :10 Request TING (ANTINUCLEAR ANTIBODY) (75416)Indication: Pain in unspecified joint On: :10 Request CBC WITH MANUAL DIFF (49763)Indication: Pain in unspecified joint On: :10 Request METABOLIC PANEL, COMPREHENSIVE (51297)Indication: Pain in unspecified joint On: 34-Vqq-93742:10 Request WILMER CULTURE-OTHER (34126)Indication: Pharyngitis, acute On: 84-Gkd-802237:14 Request Hemoglobin Glyclated (HGB A1C) (96470)Indication: Abnormal glucose tolerance test On: 06-Sep-20109:52 Request CALCIFEDIOL (43972)Indication: Abnormal glucose tolerance test On: :15 Request TSH (48058)Indication: Fatty liver On: :11 Request LIPID PANEL (96272)Indication: Hypercholesteremia On: 20-Tid-094228:54 Request CBC WITH MANUAL DIFF (01757)Indication: Hypertension On: 89-Egw-512177:54 Request METABOLIC PANEL, COMPREHENSIVE (87471)Indication: Elevated LFTs On: 83-Efk-085519:54 Request MICROALBUMIN: CREATININE RATIO (69390) AND (56456)Indication: Abnormal glucose tolerance test On: 74-Kli-066029:54 Request METABOLIC PANEL, COMPREHENSIVE (08399)Indication: Hypertension On: 43-Joo-660472:56 Request LIPID PANEL (05518)Indication: Hypercholesteremia On: 93-Bbx-141390:56 Request SED RATE ERYTHROCYTE (58512)Indication: Pain in unspecified hip On: 01-Xgh-658638:55 Request C-REACTIVE PROTEIN (77274)Indication: Pain in unspecified hip On: 77-Lrf-527385:55 Request RHEUMATOID FACTOR-QUANT (57261)Indication: Pain in unspecified hip On: 39-Sah-503058:55 Request TING (ANTINUCLEAR ANTIBODY) (08880)Indication: Pain in unspecified hip On: 73-Pid-564590:55 Request MICROALBUMIN: CREATININE RATIO (48118) AND (49986)Indication: Other specified abnormal findings of blood chemistry On: 58-Zrj-171377:54 Request GLUCOSE TOLERANCE TEST (GTT) 2 hour (40292)Indication: Other specified abnormal findings of blood chemistry On: 34-Gjp-129542:54 Request LIPID PANEL (77039)Indication: Hypercholesteremia On: 67-Vez-628232:17 Request METABOLIC PANEL, COMPREHENSIVE (64849)Indication: Elevated LFTs On: 24-Bxd-609467:17 Request METABOLIC PANEL, COMPREHENSIVE (21831)Indication: Elevated LFTs On: 41-Sly-387670:15 Request HEPATITIS A, B & C PANELSIndication: Elevated LFTs On: 95-Qzk-160299:15 Request LIPID PANEL (86421)Indication: Low HDL (under 40) On: 9-Fwb-135432:52 Request HEPATIC FUNCTION PANEL (49103)Indication: Elevated LFTs On: 0-Ril-013355:52 Request MICROALBUMIN: CREATININE RATIO (06867) AND (02363)Indication: Hypertension On: 50-Zmq-865509:23 Request CBC WITH MANUAL DIFF (00555)Indication: Chronic blood loss anemia On: 85-Ubz-232245:23 Request METABOLIC PANEL, COMPREHENSIVE (15506)Indication: Hypopotassemia On: 84-Ahs-872494:22 Request HEPATIC FUNCTION PANEL (97072)Indication: Hypercholesteremia On: 77-Mjw-459719:22 Request LIPID PANEL (47607)Indication: Hypercholesteremia On: 37-Jik-658494:22 Request LIPID PANEL (48577)Indication: Hypercholesteremia On: 0-Fkm-471620:27 Request MICROALBUMIN: CREATININE RATIO (61170) AND (20479)Indication: Hypertension On: 5-Kyu-733594:27 Request URINALYSIS W/O MICRO (05996)Indication: Hypertension On: 9-Uam-305893:27 Request TSH (09327)Indication: Thyroid nodule On: 9-Izz-239192:26 Request METABOLIC PANEL, COMPREHENSIVE (84749)Indication: Hypertension On: 6-Ptk-682391:26 Request CBC WITH MANUAL DIFF (44860)Indication: Hypertension On: 8-Ggl-250094:26 Request LIPID PANEL (72103)Indication: Low HDL (under 40) On: 6-Mia-203215:42 Request CBC WITH MANUAL DIFF (71674)Indication: Chronic blood loss anemia On: 6-Cng-530329:42 Request METABOLIC PANEL, COMPREHENSIVE (75586)Indication: Hypertension On: 8-Cpo-016101:42 Request METABOLIC PANEL, COMPREHENSIVE (56424)Indication: Hypertension On: 20-Vcz-956166:56 Request LIPID PANEL (92328)Indication: Low HDL (under 40) On: 37-Uqx-434460:56 Request CBC WITH MANUAL DIFF (13106)Indication: Chronic blood loss anemia On: 73-Xsh-516324:55 Request WET MOUNT WITH AVEL (67389)Indication: Vaginal discharge On: :09 Request CULTURE, GONOCOCCUS (48441)Indication: Vaginal discharge On: :09 Request CULTURE CHLAMYDIA (95611)Indication: Vaginal discharge On: :09 Request Thin prep Pap (96072)Indication: Well woman exam On: :08 Request WET MOUNT (21766)Indication: Vaginal discharge On: :37 Request Comments: with avel CULTURE, GONOCOCCUS (67950)Indication: Vaginal discharge On: :37 Request CULTURE CHLAMYDIA (19881)Indication: Vaginal discharge On: :37 Request BACT CULTURE ANY-ANAEROBIC (26694)Indication: Vaginal discharge On: :37 Request WILMER CULTURE-OTHER (70055)Indication: Vaginal discharge On: :37 Request URINE WILMER CULTURE (OSMAN COL COUNT) (39609)Indication: dysuria On: :36 Request LIPID PANEL (30085)Indication: Hypercholesteremia On: :36 Request CBC WITH MANUAL DIFF (32682)Indication: Chronic blood loss anemia On: :34 Request METABOLIC PANEL, COMPREHENSIVE (58880)Indication: Hypopotassemia On: :34 Request WET MOUNT WITH AVEL (47516)Indication: Vaginal discharge On: :11 Request BACT CULTURE ANY-ANAEROBIC (95820)Indication: Vaginal discharge On: :11 Request WILMER CULTURE-OTHER (77411)Indication: Vaginal discharge On: 83-Pal-170149:10 Request URINE WILMER CULTURE-IDENTIFICATN (94602)Indication: dysuria On: :09 Request CBC WITH MANUAL DIFF (79689)Indication: Chronic blood loss anemia On: :59 Request Comments: 1 month LIPID PANEL (72201)Indication: Hypercholesteremia On: :59 Request Comments: 3 mos HEPATIC FUNCTION PANEL (88392)Indication: Hypercholesteremia On: :59 Request URINE WILMER CULTURE (OSMAN COL COUNT) (27235)Indication: Urinary frequency On: 91-Qjb-800220:33 Request MICROALBUMIN URINE QUANT (71985)Indication: Hypertension On: :32 Request URINALYSIS W/O MICRO (20170)Indication: Hypertension On: :32 Request TSH (03754)Indication: Hypertension On: :32 Request METABOLIC PANEL, COMPREHENSIVE (82842)Indication: Hypertension On: :32 Request LIPID PANEL (46574)Indication: Hypertension On: :32 Request CBC WITH MANUAL DIFF (02798)Indication: Hypertension On: :32 Request TSH (THYROID STIMULATING HORMONE) (08772)Indication: Thyroid nodule On: :32 Request GLUCOSE TOLERANCE TEST (GTT) 2 hour (42527)Indication: Urinary frequency On: :31 Request Planned Encounters Medical; 3 Week FU - On: 31-May-2018 15:45 [facility] Maddy Monterroso CNP, CNP, Mary E Planned Procedures X-RAY OF LUMBAR SPINE, FOUR VIEWS On: 11-May-2018 Intent (22663)By: Maddy Monterroso CNP, CNP, Mary E XR HIP LEFT COMPLETE (36154)By: Kriss On: 11-May-2018 Intent Maddy LYNCH CNP, Mary E Radiology - Hip - LeftBy: Kriss LYNCH, On: 10-May-2018 Intent Maddy Baker CNP Toradol Injection, 30 mg ([id number])By: On: 10-May-2018 Intent Maddy Monterroso CNP, CNP, Mary E Radiology - Lumbar SpineBy: Kriss On: 10-May-2018 Intent Maddy LYNCH CNP, Mary E DIAGNOSTIC DIGITAL MAMMOGRAPHY OF On: 16-Apr-2018 Intent RIGHT BREAST (85456)By: Maddy Monterroso CNP, CNP, Mary E MAMMOGRAM BREAST RIGHT DIAGNOSTIC On: 07-Oct-2017 Intent (51417)By: Maddy Monterroso CNP, CNP, Mary E DEXA SCAN AXIAL SKELETON (57798)By: On: 20-Jul-2017 Intent Maddy Monterroso CNPa LARD TUB WASHERMaddy SCREENING DIGITAL TOMOSYNTHESIS OF On: 20-Jul-2017 Intent BREAST (33984)By: Kriss LYNCH [place] Kriss LYNCH [place] CT - Abdomen & Pelvis Stone On: 20-Jul-2017 Intent ProtocolBy: Jaydentripp LYNCHMaddy E Kriss LYNCH Maddy Orozco MAMMOGRAM BREAST BILATERAL SCREENING On: 11-Sep-2016 Intent DIGITAL ([id number])By: Kriss LYNCHMaddy E Kriss LYNCH [place] Ultrasound - RenalBy: Kriss LYNCHMaddy On: 03-Jun-2016 Intent E Kriss LYNCHMaddy ELECTROCARDIOGRAM, COMPLETE (ECG) On: 03-Jun-2016 Intent ([id number])By: Grace Nolasco LPN Comments: sinus rhythm TRANSVAGINAL ULTRASOUND ([id number])By: On: 21-Mar-2016 Intent Jaydentripp LYNCHMaddy Kriss LYNCH [place] [facility]ound - PelvisBy: Kriss LYNCH, On: 17-Mar-2016 Intent Maddy Orozco Kriss LYNCH [place] [facility]ound - RenalBy: Kriss LYNCH Maddy On: 17-Mar-2016 Intent E Kriss LYNCH [place] MAMMOGRAM, SCREENING, BOTH BREAST On: 06-Aug-2015 Intent ([id number])By: Kriss LYNCH [place]Pam Monterroso CNP [place] Ul[facility]ound - PelvisBy: Kriss LYNCH, On: 27-Jun-2015 Intent Maddy Orozco Kriss LYNCH [place] Comments: if done at [facility] please send to [place] and Dr. [place] CT - Abdomen & Pelvis (IV Contrast On: 11-Jun-2015 Intent Needed)By: Maddy Monterroso CNP, CNP [place] Bone Density StudyBy: Kriss LYNCH Maddy On: 23-Apr-2015 Intent E Kriss LYNCH [place] BIOPSY OF SKIN LESION, SINGLE On: 02-Oct-2014 Intent ([id number])By: Maddy Monterroso CNP, CNP [place] REMOVAL OF SKIN TAGS, UP TO 15 On: 02-Oct-2014 Intent ([id number])By: Maddy Monterroso CNP, CNP [place] CALCULATED BMI ABOVE THE UPPER On: 24-Jul-2014 Intent PARAMETER AND A FOLLOW-UP PLAN WAS DOCUMENTED IN THE MEDICAL RECORD ([id number])By: Ciesa Maddy LYNCH CNP, Mary E HG A1C LEVEL < 7.0% (3044F)By: Kriss On: 24-Jul-2014 Intent Maddy LYNCH CNP, Mary E EKG ([id number])By: Leyla Birch DO On: 12-Sep-2013 Intent Comments: nsr no acute chg SPECIMEN HANDLING/TRANSPORT On: 12-Sep-2013 Intent ([id number])By: Kriss LYNCHMaddy CNP, Mary E Aerosol Treatment ([id number])By: Kriss On: 24-Jun-2013 Intent Maddy LYNCH CNP, Mary E Aerosol Treatment ([id number])By: Kriss On: 14-Jun-2013 Intent Maddy LYNCH CNP, Mary E SPECIMEN HANDLING/TRANSPORT On: 31-May-2013 Intent ([id number])By: Bibi Jain LPN Ultrasound - ThyroidBy: Kriss LYNCH, On: 28-Feb-2013 Intent Maddy Baker CNP Nuclear Medicine - OtherBy: Kriss On: 06-Jun-2011 Intent Maddy LYNCH CNP, Mary E Comments: LIVER-SPLEEN SCAN nuclear medicine CT - Abdomen & PelvisBy: Kriss LYNCH, On: 28-Feb-2011 Intent Maddy Baker CNP Breast Screening - BilateralBy: Fast On: 05-Jun-2010 Intent DO Ramonita A Ultrasound - ThyroidBy: Fast DO, On: 05-Jun-[address] - Brain/HeadBy: Brayden JACKSON Ramonita A On: 04-Jun-2010 Intent Radiology - Knee - Right - Weight On: 25-Feb-2010 Intent BearingBy: Fast DO, Ramonita A Radiology - Lumbar SpineBy: Fast DO, On: 21-Dec-2009 Intent Ramonita A EKG ([id number])By: Tashia Casiano On: 15-Oct-2009 Intent Comments: ekg showed normal sinus rhythym, normal axis, no acute st/t wave changes Ultrasound - LiverBy: Brayden DO Ramonita On: 16-Jul-2009 Intent A Radiology - Thoracic SpineBy: Eyal On: 23-Apr-2009 Intent Leyla JACKSON Radiology - Lumbar SpineBy: Eyal On: 23-Apr-2009 Intent Leyla JACKSON Radiology - Hand - RightBy: Brayden JACKSON, On: 09-Apr-2009 Intent Ramonita A Comments: attn right thumb MAMMOGRAM, SCREENING, BOTH BREASTS On: 26-Dec-2008 Intent ([id number])By: Ramonita East DO DXA, BONE DENSITY, AXIAL SKELETON On: 26-Dec-2008 Intent ([id number])By: Ramonita East DO Ultrasound - ThyroidBy: Brayden JACKSON, On: 05-Sep-2008 Intent Ramonita A EKG ([id number])By: Tashia Casiano On: 05-Sep-2008 Intent Comments: ekg showed normal sinus rhythym, normal axis, no acute st/t wave changes MAMMOGRAM, SCREENING, BOTH BREASTS On: 17-Feb-2007 Intent ([id number])By: NATALEE SCHMITZ CNP Ultrasound - PelvisBy: Ramonita East DO On: 21-Oct-2006 Intent A Ultrasound - ThyroidBy: Brayden JACKSON, On: 21-Oct-2006 Intent Ramonita A Planned Medications [...] Diabetes mellitus, controlled : DISCONTINUED - CALCIFEDIOL ([id number]) Indication: Diabetes mellitus, controlled Diabetes mellitus, controlled : DISCONTINUED - HGB A1C ([id number]) Indication: Diabetes mellitus, controlled DEFICIENCY, VITAMIN D NOS : DISCONTINUED - CALCIFEDIOL ([id number]) Indication: DEFICIENCY, VITAMIN D NOS Hypercholesteremia : DISCONTINUED - LIPID PANEL ([id number]) Indication: Hypercholesteremia Hypercholesteremia : DISCONTINUED - LIPID PANEL ([id number]) Indication: Hypercholesteremia DEFICIENCY, VITAMIN D NOS : DISCONTINUED - CALCIFEDIOL ([id number]) Indication: DEFICIENCY, VITAMIN D NOS Kidney stone [...] : Patient Instructions Indication: Bleeding gums Encounters Phone Encounter On: 11-May-2018 15:14 Encounter Diagnosis: Pain in unspecified hip End: 11-May-2018 15:20 [facility] Office Visit On: 10-May-2018 16:11 Encounter Reason: [...] like bra stuck her. Ultrasound done at [facility] Encounter Diagnosis: Hypertension, Flank pain End: [...] up ER: Had xray in [facility] rt lower quad forund constipation given colace [...] to go up on meds-- she saw [place] nov- told her come back in year-, [...] for chronic medical issues: [facility] to [facility]-- she had a nodule [...] 15:06 [facility] End: 19-Oct-2006 15:14 Susanne GASCA/Leora Murray; a guarantor
--- OUTSIDE RECORDS SUMMARY | 2018-09-24 05:42 | XMS RPT_ITS | Continuity of Care Document ---
:1960 Author Organization [facility] Address [address] [place] [address] Phone Care Team Providers Name Role Phone Amparoivana CRISMaddy E Unavailable Dr. Cortez Anna Unavailable El Gupta Unavailable Wild JOHNSON, Talita Bonilla Unavailable Miah [...] Adnexal cyst (N94.9, 625.8) Comments: CT done [facility] 6cm Adnexal cyst seeing Tezano Status: Active [...] Comments: removed by Dr. Kelton Owens at [facility] on on thyriod hormone replacemnt Status: Active [...] (L71.9, 695.3) Status: Active Sciatica (M54.30, 724.3) Comments: Going to PT note from , still with pain. Status: Active Screening for breast cancer (Renamed [...] Quantity: 90 {Tablet} Refills: 3 Ordered:12-Nov-2017 Amparodavidtripp LYNCH, Maddy Muniz CRIS, Maddy Orozco Start : 12-Nov-2017 Active SHAY CONTOUR TEST (In Vitro Strip) 1 (one) Strip Strip two times daily for 0 days Quantity: 1 {Bottle} Refills: 3 Ordered:18-Jun-2015 Amparodavidtripp LYNCH, Maddy Muniz CRIS, Maddy Orozco Start : 18-Jun-2015 Active Comments:Dx: 250.0 Shay Microlet Lancets Miscellaneous 1 (one) Misc Misc bid as directed for 0 days Quantity: 1 {Box} Refills: 6 Ordered:28-Jan-2016 Jaydentripp LYNCH, Maddy Muniz CRIS, Maddy Orozco Start : 28-Jan-2016 Active Comments:DX: 790.22 Lancets Ultra Fine Miscellaneous 1 (one) Misc bid for 0 days Quantity: 60 {QS} Refills: 0 Ordered:31-May-2018 Jaydentripp LYNCH, Maddy Muniz CRIS, Maddy Orozco Start : 31-May-2018 Active LEVOTHYROXINE SODIUM, 137MCG (Oral Tablet) 1 (one) Tablet daily for 0 days Quantity: 90 {Tablet} Refills: 3 Ordered:31-Jul-2015 Sandra Oseguera MD Start : 31-Jul-2015 Active Lisinopril 10 MG Oral Tablet 1 (one) Tablet daily for 0 days Quantity: 90 {Tablet} Refills: 2 Ordered:19-Oct-2017 Kriss LYNCH, Maddy Castellanos CNP Start : 19-Oct-2017 Active MetFORMIN HCl ER 500 MG Oral Tablet Extended Release 24 Hour 1 (one) Tablet ER 24HR Tablet ER 24HR at lunch for 0 days Quantity: 90 {Tablet} Refills: 3 Ordered:03-Dec-2017 Kriss LYNCH, Maddy Muniz CNP, Maddy Orozco Start : 03-Dec-2017 Active OneTouch Ultra 2 w/Device Kit 1 (one) Kit test bid for 90 days Quantity: 1 Kit Refills: 0 Ordered:31-May-2018 Kriss LYNCH, Maddy Castellanos CNP Start : 31-May-2018 Active OneTouch Ultra Blue In Vitro Strip 1 (one) Strip bid for 0 days Quantity: 60 {Strip} Refills: 3 Ordered:31-May-2018 Kriss LYNCH, Maddy Castellanos CNP Start : 31-May-2018 Active VITAMIN C, 500MG (Oral Capsule) 1 [...] days Quantity: 14 {Tablet} Refills: 0 Ordered:03-Jun-2016 Kriss LYNCH, Maddy Castellanos CNP Start : 03-Jun-2016 End : 10-Jun-2016 Inactive [...] Refills: 0 Ordered:23-Jun-2016 Kriss LYNCH, Maddy Muniz 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, Keyana Start : 23-Jun-2016 End : 30-Jun-2016 Inactive CITALOPRAM HYDROBROMIDE, 20MG (Oral Tablet) 1 Tablet daily for 0 days Quantity: 90 {Tablet} Refills: 1 Ordered:31-May-2013 Kriss [facility] [place] Start : 31-May-2013 End : 31-May-2013 Inactive DOCUSATE SODIUM, 100MG (Oral Capsule) 1 (one) Capsule bid for 30 days Quantity: 30 {Capsule} Refills: 0 Ordered:05-Nov-2015 Jaydena 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 METERS, Maddy Muniz 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, Keyana Start : 05-Nov-2015 End : 05-Dec-2015 Inactive DOXYCYCLINE HYCLATE, 100MG (Oral Tablet) 1 (one) Tablet Twice daily for 0 days Quantity: 60 {Tablet} Refills: 0 Ordered:06-Sep-2010 Bibi Jain LPN Start : 23-Apr-2009 End : 06-Sep-2010 Inactive DRISDOL, 01612OAQT (Oral Capsule) 1 Capsule twice weekly for [...] days Quantity: 74 {Tablet} Refills: 0 Ordered:25-Jan-2018 Gaurav JUANISGrace Start : 15-Dec-2016 End : 25-Jan-2018 Inactive LANSOPRAZOLE, 30MG (Oral Capsule Delayed Release) 1 (one) Capsule DR daily for 0 days Quantity: 30 {Capsule} Refills: 3 Ordered:28-Apr-2014 Zabrina Arciniega LPN Start : 17-Apr-2014 End : 28-Apr-2014 Inactive NABUMETONE, 750MG (Oral Tablet) 1 tab Tablet bid for 10 days Quantity: 20 {Tablet} Refills: 0 Ordered:09-Aug-2010 Eyal JACKSON Leyla Start : 09-Aug-2010 End : 19-Aug-2010 Inactive NAPROXEN SODIUM, 550MG (Oral Tablet) 1 Tablet bid for 0 days Refills: 0 Ordered:06-Sep-2010 Bibi Jain LPN Start : 23-Apr-2009 End : 06-Sep-2010 Inactive PREDNISONE, 10MG (Oral Tablet) 1 (one) [...] days Quantity: 30 {Capsule} Refills: 0 Ordered:19-May-2016 Maddy Monterroso CNP, CNP Keyana Start : 11-Feb-2016 End : 19-May-2016 [...] Start : 03-Jun-2016 End : 08-Aug-2016 Discontinued [facility] Oral Capsule 1 (one) Capsule Capsule daily for 0 days Quantity: 30 {Capsule} Refills: 0 Ordered:11-Feb-2016 Grace Nolasco LPN Start : 11-Jun-2015 End : 11-Feb-2016 Discontinued DIAZEPAM, 5MG (Oral Tablet) 1 Tablet q8hrs prn for 30 days Quantity: 30 {Tablet} Refills: 0 Ordered:21-Dec-2009 Fast DO, Ramonita A Start : 21-Dec-2009 End : 21-Dec-2009 Discontinued DOCUSATE SODIUM, 100MG (Oral Capsule) 1 cap bid, prn for 0 days Refills: 0 Ordered:09-Aug-2007 Tashia Casiano End : 09-Aug-2007 Discontinued ERGOCALCIFEROL, 21873CHRN (Oral Capsule) 1 (one) Capsule Capsule twice [...] Bibi Jain LPN End : 21-Oct-2006 Discontinued Medrol 4 MG Oral Tablet Therapy Pack 1 (one) Milligram TAD for 0 days Quantity: 1 {Package} Refills: 0 Ordered:31-May-2018 Jany Moreau Start : 10-May-2018 End : 31-May-2018 Discontinued Comments:with food Meloxicam 15 MG Oral Tablet 1 (one) [...] Quantity: 1 {Aerosol_Soln} Refills: 0 Ordered:22-Jan-2015 Grace Noalsco LPN Start : 14-Jun-2013 End : 22-Jan-2015 [...] no obvious cause of spleenomegaly, sent to [employer] and food exposures from work Status: Resolved as of 12-Sep-2013 Strep pharyngitis (034.0) Status: Inactive as of 14-Apr-2017 Thumb pain (M79.646, 729.5) Status: Inactive as of 03-Jun-2016 Thyroid mass (246.9) Comments: enlarging, 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 [place] from [facility] thyroid adenoma Status: Inactive as of [...] Lead Electrocardiogram Result: Comments: See Note; NOTES: [facility] Cardi[facility] Services [address] [place] [address] 12 Lead EKG 09/16/17 1620 MR#: [id number] Acct: [id number] Name: DAYANARA MURRAY Rep #: [id number] : 1960 56 From: Rod Bender MD Attending Dr: Tracey Barnhart MD Status: [facility] Ordering Dr: Tracey Barnhart MD Date: 09/16/17 Location: [facility] Sex: F C Admitted: Test Reason : [...] ECG Confirmed by ROD BENDER MD ([id number]), business editor ALEJANDRA AGOSTO ([id number]) on 09/18/2017 1:36:25 PM Referred By: Tracey Barnhart Confirmed By:ROD BENDER MD 09/18/17 1336 Date Rod Bender MD CC: Maddy Monterroso NP; Tracey Barnhart MD Signed 17-Sep-2017 Operative Report Result: Comments: See Note; NOTES: [facility] Medical Records Department [address] [place] [address] Operative Report 09/17/17 1454 MR#: [id number] Acct: [id number] Name: DAYANARA MURRAY Rep #: [id number] : 1960 56 From: Tracey Barnhart MD PCP: Maddy Monterroso NP Status: REG SDC Y Location: [place] [address] Report of Operation Date of Procedure: 09/17/17 Pre-Operative Diagnosis: compl ex right adexexal mass Post-Operative Diagnosis: Pelvic mass, adhesions of colon to anterior abdominal wall and vaginal cuff Surgery/Procedure Performed:: Diagnostic laparascopy, cystoscopy Description of Surgical Findings:: pelvic mass in midline over bladder and vaginal cufff, ovary not well defined but under adehsions. Adhesions of colon to anterior abdominal wall electrical maintenance worker: Cardenas electrical maintenance worker: Zaki CATES Type of Anesthesia:: General Anesthesiologist: [...] further intervention we will recommend consultation with COMMUNITY CASE MANAGER oncology at a tertiary care center. The [...] Date Tracey Barnhart MD CC: Maddy Monterroso CHUCK WAGON DRIVER; Tracey Barnhart MD Signed 17-Sep-2017 Operative Report Result: Comments: See Note; NOTES: [facility] Medical Records Department [address] [place] [address] Operative Report 09/17/17 1310 MR#: [id number] Acct: [id number] Name: DAYANARA MURRAY Rep #: [id number] : 1960 56 From: Tracey Barnhart MD PCP: Maddy Monterroso NP Status: REG SDC Y Location: [place] [address] ADDENDUM by Tracey Barnhart MD on 09/17/17 [...] tube not able to be identified electrical maintenance worker: Angela Bennett Type of Anesthesia:: General Anesthesiologist: [...] Date Tracey Barnhart MD CC: Maddy Monterroso CHUCK WAGON DRIVER; Tracey Barnhart MD Signed 17-Sep-2017 Operative Report Result: Comments: See Note; NOTES: [facility] Medical Records Department [address] [place] [address] Operative Report 09/17/17 1310 MR#: [id number] Acct: [id number] Name: DAYANARA MURRAY Rep #: [id number] : 1960 56 From: Tracey Barnhart MD PCP: Maddy Monterroso NP Status: REG SDC Y Location: [place] [address]- Report of Operation Date of Procedure: 09/17/17 [...] tube not able to be identified electrical maintenance worker: Angela Baumann Type of Anesthesia:: General Anesthesiologist: [...] Discharge Instruction Result: Comments: See Note; NOTES: [facility] Medical Records Department [address] [place] [address] Instructions for Home/Discharge Instructions 09/17/17 1229 MR#: [id number] Acct: [id number] Name: DAYANARA MURRAY Rep #: [id number] : 1960 56 From: Tracey Barnhart MD PCP: Maddy Monterroso NP Status: REG DEC Discharge Diet: No Restrictions - Increase fluid [...] HCl 500 mg PO DAILY 09/15/17 Hydrocodone/Acetaminophen [[place] 5-325 Tablet] 1 each PO Q6H PRN PRN 6 Days #20 tablet 09/17/17 Ibuprofen [ Motrin] 600 mg PO Q6H PRN #30 tab 09/17/17 The following prescriptions were given: Hydrocodone/Acetaminophen [[place] 5-325 Tablet] 1 each PO Q6H PRN PRN 6 Days #20 tablet PRN Reason: Pain Ibuprofen [Mo luz] 600 mg PO Q6H PRN #30 tab PRN Reason: Pain Primary Care Physician: Maddy Monterroso [Primary Care Provider] - Please Follow Up With: Tracey Barnhart MD - [phone] When: 1-2 weeks or as needed in my office 09/17/17 1230 <Electronically signed by Tracey Barnhart MD> Date Tracey Barnhart MD CC: Maddy Monterroso CHUCK WAGON DRIVER 26-Aug-2017 Abdomen/Pelvis without Cont Result: Comments: See Note; NOTES: [facility] Imaging Services [address] [place] [address] Abdomen/Pelvis without Cont MR#: [id number] Acct: [id number] Name: DAYANARA MURRAY Rep # : [id number] : 1960 F 56 From: Alejandra Urban MD PCP: Maddy Monterroso NP Status: REG CLI Study: Abdomen/Pelvis without Cont Date of Exam: 08/26/17 Exam# [id number] Ordering Dr: Maddy Monterroso T Abdomen And Pelvis W/O Contrast INDICATION: Right [...] supp ort , CC: Maddy Monterroso NP Custom Applicator: Signed 04-Aug-2016 Kidney and Bladder Result: Comments: See Note; NOTES: [facility] Imaging Services [address] [place] [address] Verdana 4d Kidney and Bladder MR#: [id number] Acct: [id number] Name: DAYANARA MURRAY Rep #: [id number] : 1960 F 55 From: Jamie Monique DO PCP: Maddy Monterroso Status: REG CLI Study: Kidney and Bladder Date of Exam: 08/04/16 Exam# [id number] Ordering Dr: Maddy Monterroso STUDY: RENAL ULTRASO [...] at 19:24 EST Tel , Service support [phone], CC: Maddy Monterroso Custom Applicator: Signed Family History Unknown Family Member Name Dates Details Father Comments: at 63 [place], lung trauma Status: Active Social History Name Dates Details Alcohol Use Comments: Occasional alcohol use Status: Active Caffeine Use Comments: 2 QD Status: Active Exercise History Comments: None Status: Active Living Situation Comments: , Status: Active 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 Status: Active Tobacco use: Former smoker. Status: Active Smoking Status Name Dates Details Former smoker Vital Signs Date Test Result Details :45 Temperature 97.6 f Comments: Method: Temporal Pulse 75 /min Comments: Pattern: Regular Respiration Rate 16 /min Comments: Pattern: Unlabored O2 SAT 95 % Comments: Room air BP Systolic 130 mm[Hg] Comments: Patient Position: Sitting; Cuff Location: Left Arm; Cuff Size: Standard BP Diastolic 84 mm[Hg] Comments: Patient Position: Sitting; Cuff Location: Left Arm; Cuff Size: Standard Weight 188 lb Height 66 in Body Mass Index Calculated 30.34 kg/m2 Body Surface Area Calculated 1.95 m2 :13 Temperature 97.5 f Comments: Method: Temporal [...] Description Value Details :14 HgA1C , Office (80686) HgA1C , Office 5.8 % (Normal) Range: 4.6 - 7.1 :14 Blood Glucose , Office (33281) Blood Glucose , Office 121 (Normal) 54-Ttk-235963:38 Bedside Glucose Comments: [facility] [address] [place] [address] BEDSIDE GLU 98 mg/dL (Normal) Range: 70-110 Comments: MANAGEMENT OF PATIENT CARE PER NURSING PROTOCOL 87-Yim-769018:18 Bedside Glucose Comments: [facility] [address] [place] [address] BEDSIDE GLU 94 mg/dL (Normal) Range: 70-110 Comments: MANAGEMENT OF PATIENT CARE PER NURSING PROTOCOL 22-Ift-817536:09 Hemoglobin A1c Comments: [facility] [address] [place], [id number] HGB A1C 6.2 % (Normal) Range: 4.2-6.3 85-Vax-828192:59 Basic Metabolic Profile (BMP) Comments: [facility] [address] [place] [place], [id number] GAP 8 (Normal) Range: 5-15 CO2 28.0 [...] Comments: Please note revised GLUCOSE reference range osqetpove09/02/2018. 10-Iqy-949600:59 CBC-Complete Blood Cnt No Diff Comments: [facility] [address] [place] [place], [id number] MPV 11.9 fL (Normal) Range: 6.2-12.0 PLT [...] 4.2-5.4 WBC 7.8 K/mm3 (Normal) Range: 4.4-11.0 38-Eyj-989614:59 Thyroid Stim Hormone (TSH) Comments: [facility] [address] [place], [address] TSH 1.31 {uIU/mL} (Normal) Range: 0.358-3.74 :59 Type AND Screen Comments: Surgery Date: 09/17/17Hx of Preganancy in last 3 Months NoEver experience any problems with transfusion(s)? NHx of Transfusion in last 3 Months NReason for Type AND Screen/Red Cells: SURGERYSURGI EJ PROCEDURE: [facility] [address] [place], [address] Antibody Screen NEGATIVE (Normal) BLOOD TYPE GEL A POSITIVE (Normal) 51-Las-989817:52 HgA1C , Office (86384) HgA1C , Office 5.6 % (Normal) Range: 4.6 - 7.1 18-Pvq-605351:52 Blood Glucose , Office (49489) Blood Glucose , Office 87 (Normal) 97-Bzi-811831:31 Urinalysis, Office (74989) UA - NITRITE Negative (Normal) URINE UROBILINGN OSMAN TIMED Normal mg/dL (Normal) UA - PROTEIN Negative mg/dL (Normal) UA - PH 5 (Abnormal) UA - BLOOD Negative (Normal) UA - SPECIFIC GRAVITY 1.020 (Normal) UA - KETONES Negative mg/dL (Normal) UA - BILIRUBIN Negative (Normal) UA - GLUCOSE Negative (Normal) :08 Basic Metabolic Profile (BMP) Comments: [facility] [address] [place], [address] GAP 8 (Normal) Range: 5-15 CO2 31.0 [...] :08 CBC-Complete Blood Cnt No Diff Comments: [facility] [address], [place], [id number] MPV 12.3 fL (Abnormal) Range: 6.2-12.0 PLT [...] (Normal) Range: 4.4-11.0 :17 HgA1C , Office (05723) Comments: 5.6 HgA1C , Office 5.6 % (Normal) Range: 4.6 - 7.1 :17 Blood Glucose , Office (16542) Comments: 98 Blood Glucose , Office 98 (Normal) 8-Ffy-382069:42 Microscopic Examination Comments: PATIENT NOT FASTINGPERFORMED BY: mAPPnEast [facility] CenterQpgknl9643 [facility] [id number] Bacteria Few (Normal) Mucus Threads Present (Normal) Cast Type Hyaline casts (Normal) Casts Present {/lpf} (Abnormal) Epithelial Cells (non renal) 0-10 {/hpf} (Normal) Range: 0 - 10 RBC 0-2 {/hpf} (Normal) Range: 0 - 2 WBC 0-5 {/hpf} (Normal) Range: 0 - 5 6-Iuc-386492:42 MICROALBUMIN: CREATININE RATIO Comments: PATIENT NOT FASTINGPERFORMED BY: [facility] [id number] (36143) AND (38646) Microalb/Creat Ratio 4.1 {mg/g_creat} (Normal) Range: 0.0-30.0 Microalbumin, Urine 3.5 ug/mL (Normal) Creatinine, Urine 84.7 mg/dL (Normal) 9-Yyw-300920:42 URINALYSIS, W/ MICRO Comments: PATIENT NOT FASTINGPERFORMED BY: mAPPnEast [facility] CenterQgeqqd8624 [facility] [id number] Information: [id number] SRC: ([id number]) Microscopic Examination See below: (Normal) Comments: Microscopic was indicated and was performed. Nitrite, Urine Negative (Normal) Urobilinogen,Semi-Qn 0.2 mg/dL (Normal) Range: 0.2-1.0 Bilirubin Negative (Normal) Occult Blood Negative (Normal) Ketones Negative (Normal) Glucose Negative (Normal) Protein Negative (Normal) WBC Esterase 2+ (Abnormal) Appearance Clear (Normal) Urine-Color Yellow (Normal) pH 5.5 (Normal) Range: 5.0-7.5 Specific [place] 1.019 (Normal) Range: 1.005-1.030 6-Cnt-704092:42 URINE WILMER CULTURE-IDENTIFICATN Comments: PATIENT NOT FASTINGPERFORMED BY: 1006[facility] [id number] (01524) Result 1 MUG (Normal) Comments: Mixed urogenital flora1,000 Colonies/mL Urine Culture,Comprehensive Final report (Normal) :16 Urinalysis, Office (00138) UA - LEUKOCYTE ESTERASE Small (Normal) UA - NITRITE Negative (Normal) URINE UROBILINGN OSMAN TIMED Normal mg/dL (Normal) UA - PROTEIN Negative mg/dL (Normal) UA - PH 5 (Abnormal) UA - BLOOD Negative (Normal) UA - SPECIFIC GRAVITY 1.025 (Normal) UA - KETONES Negative mg/dL (Normal) UA - BILIRUBIN Negative (Normal) UA - GLUCOSE Negative (Normal) :20 Urinalysis, Office (15834) UA - LEUKOCYTE ESTERASE Negative (Normal) UA - NITRITE Negative (Normal) URINE UROBILINGN OSMAN TIMED Normal mg/dL (Normal) UA - PROTEIN Negative mg/dL (Normal) UA - PH 5 (Abnormal) UA - BLOOD Negative (Normal) UA - SPECIFIC GRAVITY 1.010 (Normal) UA - KETONES Negative mg/dL (Normal) UA - BILIRUBIN Negative (Normal) UA - GLUCOSE Negative (Normal) 40-Pgf-822117:09 Microscopic Examination Comments: PATIENT NOT FASTINGPERFORMED BY: [facility] [id number] Bacteria Few (Normal) Mucus Threads Present (Normal) Epithelial Cells (non renal) 0-10 {/hpf} (Normal) Range: 0 - 10 RBC 3-10 {/hpf} (Abnormal) Range: 0 - 2 WBC 11-30 {/hpf} (Abnormal) Range: 0 - 5 01-Sof-033168:09 URINE WILMER CULTURE-IDENTIFICATN Comments: PATIENT NOT FASTINGPERFORMED BY: [facility] [id number] (72207) Antimicrobial MIHEAD (Normal) Comments: S = Susceptible; [...] mL (Abnormal) Urine Final report Culture,Comprehensive (Abnormal) 25-Ydk-112285:09 URINALYSIS (76034) Comments: PATIENT NOT FASTINGPERFORMED BY: 1006[facility]6370 [facility] [id number] Information: SRC:SERA Microscopic Examination See below: (Normal) Comments: Microscopic was indicated and was performed. Nitrite, Urine Negative (Normal) Urobilinogen,Semi-Qn 0.2 mg/dL (Normal) Range: 0.2-1.0 Bilirubin Negative (Normal) Occult Blood 1+ (Abnormal) Ketones Negative (Normal) Glucose Negative (Normal) Protein Negative (Normal) WBC Esterase 2+ (Abnormal) Appearance Clear (Normal) Urine-Color Yellow (Normal) pH 7.0 (Normal) Range: 5.0-7.5 Specific [place] 1.007 (Normal) Range: 1.005-1.030 42-Onc-832633:29 Urinalysis, Office (40315) UA - LEUKOCYTE ESTERASE Small (Normal) UA - NITRITE Negative (Normal) URINE UROBILINGN OSMAN TIMED Normal mg/dL (Normal) UA - PROTEIN Negative mg/dL (Normal) UA - PH 7 (Normal) UA - BLOOD Non Hemolyzed Moderate (Normal) UA - SPECIFIC GRAVITY 1.015 (Normal) UA - KETONES Negative mg/dL (Normal) UA - BILIRUBIN Negative (Normal) UA - GLUCOSE Negative (Normal) 27-Uyt-677971:06 URINE WILMER CULTURE-IDENTIFICATN Comments: PATIENT NOT FASTINGPERFORMED BY: [facility]6370 [facility] [id number] Information: SRC: ([id number]) Result 1 MUG (Normal) Comments: Mixed urogenital flora1,000 Colonies/mL Urine Culture,Comprehensive Final report (Normal) 64-Pfr-353729:21 Urinalysis, Office (61798) UA - LEUKOCYTE ESTERASE Trace (Normal) UA - NITRITE Negative (Normal) URINE UROBILINGN OSMAN TIMED Normal mg/dL (Normal) UA - PROTEIN Negative mg/dL (Normal) UA - PH 7 (Normal) UA - BLOOD Negative (Normal) UA - SPECIFIC GRAVITY 1.020 (Normal) UA - KETONES Negative mg/dL (Normal) UA - BILIRUBIN Negative (Normal) UA - GLUCOSE Negative (Normal) 4-Vul-528708:05 Blood Glucose , Office (39821) Comments: 76 Blood Glucose , Office 76 (Normal) 5-Rfq-153402:44 Urinalysis, Office (15741) UA - LEUKOCYTE ESTERASE Small (Normal) UA - NITRITE Negative (Normal) URINE UROBILINGN OSMAN TIMED Normal mg/dL (Normal) UA - PROTEIN Negative mg/dL (Normal) UA - PH 5 (Abnormal) UA - BLOOD Negative (Normal) UA - SPECIFIC GRAVITY 1.030 (Abnormal) UA - KETONES Negative mg/dL (Normal) UA - BILIRUBIN Negative (Normal) UA - GLUCOSE Negative (Normal) 18-Lrz-617699:50 Blood Glucose , Office (13193) Blood Glucose , Office 102 (Normal) 27-Nce-184427:32 Hemoglobin A1c Comments: Test performed at:[facility] [address] [place] [address] HGB A1C 7.1 % (Abnormal) Range: 4.2-6.3 56-Zyq-614478:58 Blood Glucose , Office (30404) Blood Glucose , Office 99 (Normal) 57-Cuk-241366:49 ANTINUCLEAR ANTIBODIES DIRECT Comments: Test performed at:[facility] [address] [facility] [place] [address] TING-DIRECT Negative (Normal) Comments: Performed at: - [facility] [id number] Director: Rasheed Ziegler PhD, Phone: [phone] 23-Nfy-973857:49 Erythrocyte Sed Rate Comments: Test performed at:[facility] [address] [place] [address] SED RATE 10 mm/h (Normal) Range: 0-30 47-Vgk-054432:49 Rheumatoid Factor Comments: Test performed at:[facility] [address] [place] [address] RHEUMATOID FAC < 10.0 {IU/mL} (Normal) 05-Dnl-460248:49 Sjogren's Antibodies A/B Comments: Test performed at:[facility] [address] [place] [address] Anti-SS-B < 0.2 {AI} (Normal) Range: 0.0-0.9 Anti-SS-A < 0.2 {AI} (Normal) Range: 0.0-0.9 03-Knw-85128:27 Pathology Report Comments: PERFORMED BY: [facility] P[address] [facility] [id number] BY: [facility] Dermatopathology Ecex[address] [id number] Information: [id number] See MATER Comments: Material submitted: .SHAVE BIOPSY R Rigoian provided ICD-9:701.9 ; Unspecified hypertrophic and atrophic condition of skinClinical history: Note (Normal) .ETIOLOGY UNKNOWN SKIN TAGS FOR MARGINSDiagnosis:IRRITATED VERRUCA VULGARIS.10/05/2014 Electronically signed: .Priscilla Philip MD, DermatopathologistGross description: .RECEIVED IN FORMALIN LABELED [facility] WITH NO DESIGNATION ONTHE CONTAINER AND DESIGNATED RIGHT ARM ON THE REQUISITION IS ATAN/YELLOW FRAGMENT OF SKIN MEASURING 0.3 X 0.3 X 0.1 CM. THEMARGIN IS MARKED WITH GREEN INK. IT IS BISECTED AND SUBMITTEDENTIRELY IN A SINGLE CASSETTE.LMS/JASPathologist provided ICD-9:078.10CPT .042322 40-Vyw-550952:05 HgA1C , Office (31215) Comments: 7.0 HgA1C , Office 7.0 % (Normal) Range: 4.6 - 7.1 38-Yky-197091:05 Blood Glucose , Office (52315) Comments: 93 Blood Glucose , Office 93 (Normal) 72-Exc-951202:25 HgA1C , Office (65786) HgA1C , Office 6.8 % (Normal) Range: 4.6 - 7.1 :19 HgA1C , Office (22536) HgA1C , Office 8.0 % (Abnormal) Range: 4.6 - 7.1 :19 Blood Glucose , Office (71741) Blood Glucose , Office 153 (Normal) Comments: non-fasting :58 HgA1C , Office (95671) HgA1C , Office 7.2 % (Abnormal) Range: 4.6 - 7.1 :34 URINE WILMER CULTURE-OSMAN COL Comments: PATIENT NOT FASTINGPERFORMED BY: [facility] Mvhzoc5546YoopiesNovant Health Rehabilitation Hospital [id number] Information: SRC:UR [id number] COUNT (14733) Result 1 MUG (Normal) Comments: Mixed urogenital flora25,000-50,000 colony forming units per mL Urine Final report (Normal) Culture,Comprehensive :40 Urinalysis, Office (72620) UA - LEUKOCYTE ESTERASE Negative (Normal) UA - NITRITE Negative (Normal) URINE UROBILINGN OSMAN TIMED Normal mg/dL (Normal) UA - PROTEIN Negative mg/dL (Normal) UA - BLOOD Negative (Normal) UA - SPECIFIC GRAVITY 1.025 (Normal) UA - PH 7 (Normal) UA - KETONES Negative mg/dL (Normal) UA - BILIRUBIN Negative (Normal) UA - GLUCOSE Negative (Normal) 10-Tle-966081:21 Rapid Strep Test, Office (69159) Rapid Strep Test, Office Positive (Normal) :21 Rapid Flu (34531 x 2) Influenza A Ag negative a and b (Normal) 42-Rkn-057481:06 URINE WILMER CULTURE-OSMAN COL Comments: PATIENT NOT FASTINGPERFORMED BY: [facility] [id number] [facility] [id number] Information: SRC:UR [id number] COUNT (49032) Antimicrobial MIHEAD (Normal) Comments: S = Susceptible; [...] mL (Normal) Urine Final report Culture,Comprehensive (Normal) 13-Zpz-350617:46 Urinalysis, Office (43822) UA - BILIRUBIN Negative (Normal) UA - BLOOD Negative (Normal) UA - GLUCOSE Negative (Normal) UA - KETONES Moderate mg/dL (Normal) Comments: trace UA - LEUKOCYTE ESTERASE Large (Normal) UA - NITRITE Negative (Normal) UA - PH 7.5 (Normal) UA - PROTEIN Negative mg/dL (Normal) UA - SPECIFIC GRAVITY 1.025 (Normal) URINE UROBILINGN OSMAN TIMED Normal mg/dL (Normal) Comments: 1.0E.U/dL 2-Gal-560385:52 CBCD,SMEAR DIFF RED CELL MORPH SeeNote {NORMAL} [...] 4.2-5.4 WBC 8.9 K/mm3 (Normal) Range: 4.4-11.0 :52 LIVER D BILI 0.11 mg/dL (Normal) Range: 0.00-0.30 ALT 45 U/L (Normal) Range: 12-78 T BILI 0.60 mg/dL (Normal) Range: 0.00-1.00 ALK P 67 U/L (Normal) Range: 50-136 AST 37 U/L (Normal) Range: 15-37 ALB 4.2 g/dL (Normal) Range: 3.4-5.0 T PROT 7.7 g/dL (Normal) Range: 6.4-8.2 :14 LIVER/SPLEEN SCAN WITH FLOW Radiology Report See [...] Barrera MD :56 Blood Glucose , Office (59682) Blood Glucose , Office 135 (Normal) :56 HgA1C , Office (65059) HgA1C , Office 6.0 % (Normal) Range: 4.6 - 7.1 28-Iwm-182761:14 Rapid Strep Test, Office (12805) Rapid Strep Test, Negative (Normal) Office :00 CULTURE, THROAT See Note (Normal) Comments: Normal throat alexsandra isolated. No beta-hemolyticstreptococcus isolated. :24 VIT D,25 83018 19.7 ng/mL (Abnormal) Range: 32.0-100.0 Comments: Recent studies consider the lower limit of 32.0 ng/mL to carmen threshold for optimal health.Inderjit COLEMAN. J Nutr. 2004;135(2):317-22.Performed at: - [facility] [address]Lab Director: Mariel Deleon MD, Phone: [phone] :[phone] HGB A1C 5.4 % (Normal) Range: 4.0-6.3 Comments: The methodology of Hgb A1C has changed to [place] significant changes in patient results are expected. The reference range remains the same. :01 TSH 1.49 {uIU/mL} (Normal) Range: 0.358-3.74 :07 Blood Glucose , Office (12589) Blood Glucose , Office 108 (Normal) :42 HgA1C , Office (56728) HgA1C , Office 5.8 % (Normal) Range: 4.6 - 7.1 :42 Blood Glucose , Office (89717) Blood Glucose , Office 99 (Normal) :22 HgA1C , Office (91997) HgA1C , Office 5.8 % (Normal) Range: 4.6 - 7.1 :22 Blood Glucose , Office (06922) Blood Glucose , Office 93 (Normal) :02 [...] T PROT 7.4 g/dL (Normal) Range: 6.4-8.2 1-Zue-533086:42 URINALYSIS W/O MICRO (89425) UA - APPEARANCE clear (Normal) UA - [...] (Normal) UA - URINE SEDIMENT neg (Normal) 50-Oca-535352:30 CH/GC DNA 46718 CHLAM DNA 67549 SeeNote (Normal) Comments: Result: Negative GC DNA PROBE SeeNote (Normal) Comments: Result: Negative No swab in specimen when received.Test valid for male urethral and female endocervicalspecimens only.Performed At: [facility], [place] [id number] 13-Wun-050956: AVEL PREP See Note {PER_HPF} Comments: FUNGAL ELEMENTS NONE SEEN 30 (Normal) 04-Bjm-570185: WET PREP See Note (Normal) Comments: [facility] 85-Csr-522170:39 Urinalysis, Office (36010) Comments: ABN signed PE UA - BILIRUBIN Negative (Normal) UA - BLOOD Negative (Normal) UA - GLUCOSE Negative (Normal) UA - KETONES Negative mg/dL (Normal) UA - LEUKOCYTE ESTERASE Negative (Normal) UA - NITRITE Negative (Normal) UA - PH 6.0 (Normal) UA - PROTEIN Negative mg/dL (Normal) UA - SPECIFIC GRAVITY 1.005 (Normal) URINE UROBILINGN OSMAN TIMED Normal mg/dL (Normal) 39-Xnk-793100:35 CBCD,SMEAR DIFF CELLS COUNTED 100 (Normal) EOS [...] 47-70 WBC 7.6 K/mm3 (Normal) Range: 4.4-11.0 53-Bju-848603:35 COMP METABOLIC A/G 1.2 {RATIO} (Normal) Range: [...] See Note (Normal) Comments: #1- [facility] HAVE CONFIRMED THE OBSERVATIONS OF OTHERS WHO HAVE DEMONSTRATED THAT PREVOTELLA, PORPHYROMONAS AND BACTEROIDES SPECIES OTHER THAN B.FRAGILIS GROUP ARE ROUTINELY ROBIN CEPTIBLE TO CEFOXITIN, CHLORAMPHENICOL, AND METRONIDAZOLE AND ARE USUALLY RESISTANT TO PENICILLIN. TESTING PERFORMED AT [facility]. ORIGINAL RE PORT ON FILE IN LAB CONTAINS ADDITIONAL TEST SITE INFORMATION. ANAEROBIC CULT TO REF LAB 2 ANAEROBIC ORGANISMS ISOLATED AND IDENTIFIED. ORGANISM 1: PREVOTELLA BIVIA-ORGANISM 2: TANA MCDONALDUS :40 CH/GC [id number] CHLAM DNA SeeNote (Normal) Comments: Result: Negative GC DNA PROBE SeeNote (Normal) Comments: Result: Negative Performed At: [facility], [place] [phone] :40 CULTURE, URINE URINE CULTURE See Note [...] TRICH RAREWBC 2-4 0 :04 Urinalysis, Office (00791) Comments: ABn signed UA - BILIRUBIN Negative (Normal) UA - BLOOD Negative (Normal) UA - GLUCOSE Negative (Normal) UA - KETONES Negative mg/dL (Normal) UA - LEUKOCYTE ESTERASE Small (Normal) UA - NITRITE Negative (Normal) UA - PH 5.0 (Normal) UA - PROTEIN Negative mg/dL (Normal) UA - SPECIFIC GRAVITY 1.010 (Normal) URINE UROBILINGN OSMAN TIMED 2 mg/dL (Normal) 3-Tnh-124937:10 CULTURE, URINE URINE CULTURE See Note {CFU/mL} (Normal) Comments: COLONY COUNT >100,000 ORGANISM 1: STREPTOCOCCUS AGALACTIAE (B) STREPTOCOCCUS AGALACTIAE (B): REACTION CEFAZOLIN $ <=8 S CLI NDAMYCIN, NON-EC $$ <=0.25 S ERYTHROMYCIN NON-EC $$ <=0.25 S LEVOFLOXACIN $$ <=1 S NITROFURANTOIN $ <= 32 S PENICILLIN G (STREP) $$ <=0.03 S TETRACYCLINE NON-EC $$ >=16 R VANCOMYCIN NON-EC $$ <=0.5 S :37 Urinalysis, Office (34646) UA - BILIRUBIN Negative (Normal) UA - BLOOD Non Hemolyzed Moderate (Normal) UA - GLUCOSE Negative (Normal) UA - KETONES Negative mg/dL (Normal) UA - LEUKOCYTE ESTERASE Moderate (Normal) UA - NITRITE Negative (Normal) UA - PH 7.0 (Normal) UA - PROTEIN Negative mg/dL (Normal) UA - SPECIFIC GRAVITY 1.010 (Normal) URINE UROBILINGN OSMAN TIMED Normal mg/dL (Normal) 45-Nsc-42826:00 CBCD,SMEAR DIFF Comments: COMMENTS: IN AM BAND [...] (Normal) WBC 10.4 K/mm3 (Normal) Range: 4.4-11.0 38-Rji-066853:00 CULTURE, URINE Comments: HOLD IN OE UNTIL [...] 1.49 INDETERMINANT > OR = 1.50 SUGGEST [place] :42 HYSTERECT P-HYST (Normal) Comments: OPERATION Hysterectomy, [...] 01/01/07 ANTIBODY SCREEN NEGATIVE (Normal) Comments: COMMENTS: [facility] OR 12/31/06 :00 BLOOD TYPE PT A POSITIVE (Normal) Comments: COMMENTS: PAT OR 12/31/06 :00 33-Lja-305460:00 CBCD Comments: COMMENTS: RESULTS TO DR. MONTOYA AND DR. EAST, [facility] OR 12/31/06 BAND 5 % (Normal) Range: [...] 11.6-14.6 WBC 9.8 K/mm3 (Normal) Range: 4.4-11.0 : COMP METABOLIC Comments: COMMENTS: RESULTS TO DR. [...] PROT 6.8 g/dL (Normal) Range: 6.4-8.2 :00 LIPID Comments: COMMENTS: PAT OR 12/31/06 CHOL [...] (Normal) Range: 5-40 :00 LIVER Comments: COMMENTS: [facility] OR 12/31/06 ALB 3.5 g/dL (Normal) Range: 3.4-5.0 ALK P 54 U/L (Normal) Range: 50-136 ALT 32 [iU]/L (Normal) Range: 30-65 AST 20 U/L (Normal) Range: 15-37 D BILI 0.07 mg/dL (Normal) Range: 0.00-0.30 T BILI 0.23 mg/dL (Normal) Range: 0.00-1.00 T PROT 6.8 g/dL (Normal) Range: 6.4-8.2 : ,SERUM Comments: COMMENTS: RESULTS TO DR. MONTOYA AND DR. EAST, [facility] OR 12/31/06 HCGSQUAL SeeNote m[iU]/mL (Normal) Comments: Result: NEGATIVE : PRO TIME Comments: COMMENTS: RESULTS TO DR. MONTOYA AND DR. EAST, [facility] OR 12/31/06 INR 1.0 (Normal) PROTIME 12.1 s (Normal) Range: 10.6-13.2 : PTT 23.5 s (Abnormal) Comments: COMMENTS: RESULTS TO DR. MONTOYA AND DR. EAST, [facility] OR 12/31/06 Range: 24.6-36.6 :25 ANAEROBIC CULT See Note (Normal) Comments: AMOUNT GROWTH GROWTH ORGANISM 1: PREVOTELLA BIVIA- 11-Rog-988708:25 CH/GC DNA 86397 CHLAM DNA 55336 SeeNote (Normal) Comments: Result: Negative GC DNA PROBE SeeNote (Normal) Comments: Result: Negative Test valid for male urethral and female endocervicalspecimens only.Performed At: [facility], [place] [id number] 38-Jaa-390833:25 GENT CULT COMP GENT CULT COMP See [...] COCCI IN CHAINS NO GRAM NEGATIVE DIPLOCOCCI 03-Ueq-055387:25 AVEL PREP See Note {PER_HPF} Comments: FUNGAL ELEMENTS NONE SEEN (Normal) :25 WET PREP See Note (Normal) Comments: MOTILE TRICH 1+WBC 1 10-Vah-435207:00 CULTURE, URINE URINE CULTURE See Note {CFU/mL} (Normal) Comments: COLONY COUNT >100,000 ORGANISM 1: STREPTOCOCCUS AGALACTIAE (B) STREPTOCOCCUS AGALACTIAE (B): REACTION CEFAZOLIN $ <=8 S CLI NDAMYCIN, NON-EC $$ <=0.25 S ERYTHROMYCIN NON-EC $$ <=0.25 S LEVOFLOXACIN $$ <=1 S NITROFURANTOIN $ <= 32 S PENICILLIN G (STREP) $$ <=0.03 S TETRACYCLINE NON-EC $$ >=16 R VANCOMYCIN NON-EC $$ <=0.5 S :57 Urinalysis, Office (46958) Comments: ABN signed UA - BILIRUBIN Negative (Normal) UA - BLOOD Hemolyzed Trace (Normal) UA - GLUCOSE Negative (Normal) UA - KETONES Negative mg/dL (Normal) UA - LEUKOCYTE ESTERASE Moderate (Normal) UA - NITRITE Negative (Normal) UA - PH 6.5 (Normal) UA - PROTEIN Negative mg/dL (Normal) UA - SPECIFIC GRAVITY 1.010 (Normal) URINE UROBILINGN OSMAN TIMED Normal mg/dL (Normal) 26-Vna-66142:00 ASPIRATION P-ASPS (Normal) Comments: OPERATION FNA right [...] th yroid nodule. Submitted for staining. / SJ: 12/16/06 TC:5 REPORT SIGNED: LAKISHA GALAN 12/17/06:38 B12/FOLATES 810 FOLATES,S 2013 16.5 ng/mL (Normal) Comments: Indeterminate: 3.4 - 5.4 Deficient: <3.4 VIT B12 1503 347 pg/mL (Normal) Range: 211-911 22-Qly-16218:38 CBCD,SMEAR DIFF ANISO 1+ (Normal) BAND 1 [...] mg/dL (Normal) Range: 34-200 Comments: Performed At: [address] [id number] :38 IRON+TIBC IRON SATURATION 4.0 % (Abnormal) Range: 15.0-55.0 IRON, SERUM 19 ug/dL (Abnormal) Range: 35-150 TIBC 481 ug/dL (Abnormal) Range: 250-450 :38 LDH 205 U/L (Abnormal) Range: 100-190 :38 RETIC 1.19 % (Normal) Range: 0.5-1.5 :55 GLU GTT-2 HOUR 110 mg/dL (Normal) Comments: 2HR GTT GLU 2 HR GLU GTT-2 HOUR from 0516:[id number]. Range: 70-120 :55 GLU GTT-1 HOUR 162 mg/dL (Normal) Comments: 2HR GTT GLU 1 HR GLU GTT-1 HOUR from 0516:[id number]. Range: 120-170 :28 GLU GTT-30 min. 175 mg/dL (Abnormal) Comments: 2HR GTT GLU 1/2 HR GLU GTT-30 min. from 0516:[id number]. Range: 110-170 :46 CBCD,SMEAR DIFF ANISO 1+ [...] Comments: 2HR GTT FASTING GLU GTT-FASTING from 0516:[id number]. Range: 70-110 Comments: GLUCOSE TOLERANCE TEST Reference Interval Non- Adults Fasting 70 - 110 30 minutes 110 - 170 1 hour 120 - 170 2 hour 70 - 120 3 hour 70 - 110 4 hour 70 - 110 5 hour 70 - 110 57-Bbr-664151:46 LIPID CHOL 216 mg/dL (Abnormal) Comments: <200 [...] 0.2 EU/dl (Normal) Range: 0.2 - 1.0 84-Dts-624583:46 TSH 1.50 {uIU/mL} (Normal) Range: 0.34-4.82 :05 PELVIC (NON-PREG) (HP) Radiology Report See Note (Normal) Comments: Exam Number: [id number] THYROID ULTRASOUND HISTORYThyroid nodule. High resolution real [...] for review. Reported By: MELI YE M.D. 11-Exc-55377:05 THYROID () Radiology Report See Note (Normal) Comments: Exam Number: [id number] THYROID ULTRASOUND HISTORYThyroid nodule. High resolution real [...] for review. Reported By: MELI YE M.D. 52-Lvq-757128:15 Urinalysis, Office (03556) Comments: done-p UA - BILIRUBIN Negative (Normal) UA - BLOOD Negative (Normal) UA - GLUCOSE Negative (Normal) UA - KETONES Negative mg/dL (Normal) UA - LEUKOCYTE ESTERASE Negative (Normal) UA - NITRITE Negative (Normal) UA - PH 5.0 (Normal) UA - PROTEIN Negative mg/dL (Normal) UA - SPECIFIC GRAVITY 1.000 (Normal) URINE UROBILINGN OSMAN TIMED Normal mg/dL (Normal) 76-Ldo-300805:45 CULTURE, URINE URINE CULTURE See Note {CFU/mL} (Normal) Comments: COLONY COUNT 1000-10,000 ORGANISM 1: MIXED GRAM POSITIVE ORGANISMS Plan of Care Name Dates Details Instructions Nonsmoker : Eprescribed prescriptions (G8553) Indication: Nonsmoker BMI 30.0-30.9,adult : Follow up in 3 [...] : FOLLOW UP IN 4 WEEKS with [facility] to go over BS diary, diet etc Indication: Impaired fasting glucose Abnormal glucose tolerance test : FOLLOW UP IN 1 WEEK [facility] for meter instruction, begin metformin, etc [...] Indication: Urinary frequency Planned Observations LIPID PANEL (38245)Indication: Hypertension On: :26 Request CBC & PLATELETS (AUTO) (08795)Indication: Hypertension On: :26 Request CALCIFEDIOL (35288)Indication: Hypertension On: :26 Request METABOLIC PANEL, COMPREHENSIVE (78310)Indication: Hypertension On: 13-Apr-20188:25 Request HGB A1C (31532)Indication: Diabetes mellitus, controlled On: 61-Svm-039313:33 Request CBC, Platelets & Auto Diff (09126)Indication: Hypertension On: 18-Jan-2018 Request Lipid Panel (70863)Indication: Hypertension On: 18-Jan-2018 Request Metabolic Panel, Comprehensive (40678)Indication: Hypertension On: 18-Jan-2018 Request Metabolic Panel, Comprehensive (54475)Indication: Diabetes mellitus, controlled On: 01-Prd-839117:28 Request HGB A1C (80434)Indication: Diabetes mellitus, controlled On: 66-Hfs-965477:28 Request TSH (32142)Indication: Diabetes mellitus, controlled On: 69-Yuh-319231:50 Request Comments: mar 2017 URINALYSIS W MICROSCOPY (52048)Indication: Flank pain On: :09 Request URINE WILMER CULTURE-OSMAN COL COUNT (24130)Indication: Flank pain On: :08 Request CALCIFEDIOL (48914)Indication: DEFICIENCY, VITAMIN D NOS On: :39 Request Comments: to be done December 2016 LIPID PANEL (01538)Indication: Hypercholesteremia On: :38 Request Comments: print to be done prior to next visit URINALYSIS, W/ MICRO (24586)Indication: Kidney stone on right side On: :36 Request HGB A1C (50906)Indication: Hypercholesteremia On: :49 Request Lipid Panel (10714)Indication: Diabetes mellitus, controlled On: :49 Request Metabolic Panel, Comprehensive (83212)Indication: Diabetes mellitus, controlled On: :48 Request TSH (55117)Indication: Diabetes mellitus, controlled On: :48 Request CBC, Platelets & Auto Diff (66289)Indication: Diabetes mellitus, controlled On: :48 Request HGB A1C (58753)Indication: Uncontrolled diabetes mellitus type 2 without complications On: :46 Request CALCIFEDIOL (07960)Indication: Uncontrolled diabetes mellitus type 2 without complications On: :46 Request TSH (31369)Indication: Uncontrolled diabetes mellitus type 2 without complications On: :46 Request CBC, Platelets & Auto Diff (37741)Indication: Uncontrolled diabetes mellitus type 2 without complications On: :46 Request Lipid Panel (62671)Indication: Uncontrolled diabetes mellitus type 2 without complications On: :46 Request Metabolic Panel, Comprehensive (81999)Indication: Uncontrolled diabetes mellitus type 2 without complications On: :46 Request Metabolic Panel, Comprehensive (35174)Indication: Kidney stone on right side On: :44 Request PT (PROTHROMBIN TIME) (77384)Indication: Preop examination On: :20 Request CBC, Platelets & Auto Diff (55738)Indication: Preop examination On: 46-Mte-899362:20 Request CBC, Platelets & Auto Diff (97047)Indication: Preop examination On: :19 Request Metabolic Panel, Comprehensive (07648)Indication: Preop examination On: :19 Request Metabolic Panel, Basic (27913)Indication: Flank pain On: :43 Request Hemoglobin Glyclated (HGB A1C) (15378)Indication: Uncontrolled diabetes mellitus type 2 without complications On: 6-Pkx-305099:04 Request CREATININE CLEARANCE (05950)Indication: Abdominal pain, acute, right upper quadrant On: 86-Pme-333611:54 Request Comments: STAT Hemoglobin Glyclated (HGB A1C) (62787)Indication: Uncontrolled diabetes mellitus type 2 without complications On: 94-Pxl-958473:25 Request HEPATIC FUNCTION PANEL (29459)Indication: Hypercholesteremia On: 63-Waf-126357:37 Request Comments: repeat November fasting TSH (THYROID STIMULATING HORMONE) (00688)Indication: Uncontrolled diabetes mellitus type 2 without complications On: 19-Ivp-880517:47 Request CALCIFIDIOL (87579) VIT D 25Indication: Uncontrolled diabetes mellitus type 2 without complications On: 24-Iif-190939:47 Request MICROALBUMIN: CREATININE RATIO (73909) AND (73433)Indication: Uncontrolled diabetes mellitus type 2 without complications On: 24-Hly-052203:47 Request METABOLIC PANEL, COMPREHENSIVE (54686)Indication: Uncontrolled diabetes mellitus type 2 without complications On: 80-Tio-641763:47 Request LIPID PANEL (52669)Indication: Uncontrolled diabetes mellitus type 2 without complications On: 04-Ssz-771159:47 Request Metabolic Panel, Comprehensive (89160)Indication: Uncontrolled diabetes mellitus type 2 without complications On: 47-Bvr-702333:44 Request Lipid Panel (27592)Indication: Uncontrolled diabetes mellitus type 2 without complications On: 55-Ile-329682:44 Request Blood Glucose , Office (65848)Indication: Uncontrolled diabetes mellitus type 2 without complications On: 92-Uam-379928:25 Request BLD CNT, MANUAL CELL COUNT, EACH (71111)Indication: Thyroid nodule On: 7-Izw-621824:56 Request URINALYSIS, AUTOMATED W/ MICRO (91653)Indication: Thyroid nodule On: 8-Qbo-204550:56 Request 24HR URINE CREATININE (19552)Indication: Thyroid nodule On: :56 Request MICROALBUMIN, TIMED 24 UR 360196 (83255)Indication: Thyroid nodule On: 7-Sjy-723230:56 Request CALCIFEDIOL (46623)Indication: Thyroid nodule On: 1-Aue-915602:55 Request Metabolic Panel, Comprehensive (36990)Indication: Uncontrolled diabetes mellitus type 2 without complications On: 9-Idl-500020:55 Request TSH (THYROID STIMULATING HORMONE) (77117)Indication: Thyroid nodule On: 2-Pyi-078088:54 Request LIPID PANEL (34316)Indication: GERD (gastroesophageal reflux disease) On: 8-Elh-506369:52 Request CBC WITH MANUAL DIFF (89142)Indication: Hypertension On: 80-Hrx-837083:00 Request Vitamin D Hydroxy (38089)Indication: Depression On: :59 Request TSH (50754)Indication: Depression On: :59 Request URINALYSIS, W/ MICRO (74753)Indication: Hypertension On: :59 Request MICROALBUMIN: CREATININE RATIO (77777) AND (53076)Indication: Hypertension On: :59 Request METABOLIC PANEL, COMPREHENSIVE (96783)Indication: Hypertension On: :59 Request LIPID PANEL (83279)Indication: Hypertension On: :59 Request CBC, Platelets & Auto Diff (90932)Indication: Fatigue On: :29 Request Metabolic Panel, Basic (55597)Indication: Fatigue On: 44-Fyk-999835:29 Request WILMER CULTURE-OTHER (14572)Indication: Pharyngitis, acute On: 62-Bnj-470303:25 Request Influenza A&B Viral Culture (37781)Indication: Pharyngitis, acute On: 93-Jve-832156:21 Request T4, FREE (THYROXINE) (28130)Indication: Thyroid nodule On: 28-Hlq-194607:01 Request FREE TRIDOTHYRONINE (T3) (57588)Indication: Thyroid nodule On: 44-Emb-726904:00 Request TSH (THYROID STIMULATING HORMONE) (66982)Indication: Thyroid nodule On: 20-Hvs-499445:00 Request HEPATIC FUNCTION PANEL (44117)Indication: Hepatomegaly On: 6-Did-825969:13 Request CBC with manual diff (60851)Indication: Hepatomegaly On: 0-Usw-124294:13 Request HEPATIC FUNCTION PANEL (83812)Indication: Splenomegaly On: 0-Lfd-020276:57 Request CBC with manual diff (39983)Indication: Splenomegaly On: 5-Hpk-667218:57 Request CCP ANTIBODY (90019)Indication: Pain in unspecified joint On: :10 Request SED RATE ERYTHROCYTE (88573)Indication: Pain in unspecified joint On: 30-Wmi-83850:10 Request C-REACTIVE PROTEIN (32298)Indication: Pain in unspecified joint On: :10 Request RHEUMATOID FACTOR-QUANT (51052)Indication: Pain in unspecified joint On: :10 Request TING (ANTINUCLEAR ANTIBODY) (57244)Indication: Pain in unspecified joint On: :10 Request CBC WITH MANUAL DIFF (91828)Indication: Pain in unspecified joint On: :10 Request METABOLIC PANEL, COMPREHENSIVE (25864)Indication: Pain in unspecified joint On: :10 Request WILMER CULTURE-OTHER (79797)Indication: Pharyngitis, acute On: 91-Raf-011279:14 Request Hemoglobin Glyclated (HGB A1C) (47370)Indication: Abnormal glucose tolerance test On: :52 Request CALCIFEDIOL (57413)Indication: Abnormal glucose tolerance test On: :15 Request TSH (50230)Indication: Fatty liver On: :11 Request LIPID PANEL (74451)Indication: Hypercholesteremia On: 45-Rvm-714914:54 Request CBC WITH MANUAL DIFF (80764)Indication: Hypertension On: 23-Qbt-410224:54 Request METABOLIC PANEL, COMPREHENSIVE (45572)Indication: Elevated LFTs On: 73-Yck-133340:54 Request MICROALBUMIN: CREATININE RATIO (06073) AND (94241)Indication: Abnormal glucose tolerance test On: 40-Cni-535988:54 Request METABOLIC PANEL, COMPREHENSIVE (34478)Indication: Hypertension On: 10-Iwh-969904:56 Request LIPID PANEL (28988)Indication: Hypercholesteremia On: 24-Ldw-017025:56 Request SED RATE ERYTHROCYTE (51243)Indication: Pain in unspecified hip On: 81-Gjw-193029:55 Request C-REACTIVE PROTEIN (98161)Indication: Pain in unspecified hip On: 91-Zdd-426390:55 Request RHEUMATOID FACTOR-QUANT (99065)Indication: Pain in unspecified hip On: 09-Lht-373957:55 Request TING (ANTINUCLEAR ANTIBODY) (43068)Indication: Pain in unspecified hip On: 72-Lie-650890:55 Request MICROALBUMIN: CREATININE RATIO (76978) AND (53036)Indication: Other specified abnormal findings of blood chemistry On: 22-Evm-434286:54 Request GLUCOSE TOLERANCE TEST (GTT) 2 hour (60643)Indication: Other specified abnormal findings of blood chemistry On: 75-Kpv-282999:54 Request LIPID PANEL (94751)Indication: Hypercholesteremia On: :17 Request METABOLIC PANEL, COMPREHENSIVE (20596)Indication: Elevated LFTs On: 36-Zuz-066100:17 Request METABOLIC PANEL, COMPREHENSIVE (38735)Indication: Elevated LFTs On: :15 Request HEPATITIS A, B & C PANELSIndication: Elevated LFTs On: :15 Request LIPID PANEL (56271)Indication: Low HDL (under 40) On: 3-Ppk-048918:52 Request HEPATIC FUNCTION PANEL (78555)Indication: Elevated LFTs On: 0-Vyz-252209:52 Request MICROALBUMIN: CREATININE RATIO (93678) AND (10779)Indication: Hypertension On: 46-Epy-678772:23 Request CBC WITH MANUAL DIFF (38248)Indication: Chronic blood loss anemia On: 04-Yxq-756936:23 Request METABOLIC PANEL, COMPREHENSIVE (52877)Indication: Hypopotassemia On: 76-Xmp-762170:22 Request HEPATIC FUNCTION PANEL (09876)Indication: Hypercholesteremia On: 61-Gyf-407976:22 Request LIPID PANEL (12990)Indication: Hypercholesteremia On: 99-Orq-974240:22 Request LIPID PANEL (96514)Indication: Hypercholesteremia On: :27 Request MICROALBUMIN: CREATININE RATIO (01336) AND (05163)Indication: Hypertension On: : Request URINALYSIS W/O MICRO (13891)Indication: Hypertension On: : Request TSH (45578)Indication: Thyroid nodule On: :26 Request METABOLIC PANEL, COMPREHENSIVE (48769)Indication: Hypertension On: : Request CBC WITH MANUAL DIFF (35432)Indication: Hypertension On: :26 Request LIPID PANEL (74443)Indication: Low HDL (under 40) On: :42 Request CBC WITH MANUAL DIFF (53666)Indication: Chronic blood loss anemia On: :42 Request METABOLIC PANEL, COMPREHENSIVE (80874)Indication: Hypertension On: :42 Request METABOLIC PANEL, COMPREHENSIVE (57156)Indication: Hypertension On: :56 Request LIPID PANEL (44711)Indication: Low HDL (under 40) On: :56 Request CBC WITH MANUAL DIFF (21284)Indication: Chronic blood loss anemia On: :55 Request WET MOUNT WITH AVEL (65574)Indication: Vaginal discharge On: :09 Request CULTURE, GONOCOCCUS ([id number])Indication: Vaginal discharge On: :09 Request CULTURE CHLAMYDIA ([id number])Indication: Vaginal discharge On: :09 Request Thin prep Pap ([id number])Indication: Well woman exam On: :08 Request WET MOUNT ([id number])Indication: Vaginal discharge On: :37 Request Comments: with avel CULTURE, GONOCOCCUS ([id number])Indication: Vaginal discharge On: :37 Request CULTURE CHLAMYDIA ([id number])Indication: Vaginal discharge On: :37 Request BACT CULTURE ANY-ANAEROBIC ([id number])Indication: Vaginal discharge On: :37 Request WILMER CULTURE-OTHER ([id number])Indication: Vaginal discharge On: :37 Request URINE WILMER CULTURE (OSMAN COL COUNT) ([id number])Indication: dysuria On: :36 Request LIPID PANEL ([id number])Indication: Hypercholesteremia On: :36 Request CBC WITH MANUAL DIFF ([id number])Indication: Chronic blood loss anemia On: :34 Request METABOLIC PANEL, COMPREHENSIVE ([id number])Indication: Hypopotassemia On: :34 Request WET MOUNT WITH AVEL ([id number])Indication: Vaginal discharge On: :11 Request BACT CULTURE ANY-ANAEROBIC ([id number])Indication: Vaginal discharge On: :11 Request WILMER CULTURE-OTHER ([id number])Indication: Vaginal discharge On: :10 Request URINE WILMER CULTURE-IDENTIFICATN ([id number])Indication: dysuria On: :09 Request CBC WITH MANUAL DIFF ([id number])Indication: Chronic blood loss anemia On: :59 Request Comments: 1 month LIPID PANEL ([id number])Indication: Hypercholesteremia On: :59 Request Comments: 3 mos HEPATIC FUNCTION PANEL ([id number])Indication: Hypercholesteremia On: :59 Request URINE WILMER CULTURE (OSMAN COL COUNT) ([id number])Indication: Urinary frequency On: :33 Request MICROALBUMIN URINE QUANT ([id number])Indication: Hypertension On: :32 Request URINALYSIS W/O MICRO ([id number])Indication: Hypertension On: :32 Request TSH ([id number])Indication: Hypertension On: :32 Request METABOLIC PANEL, COMPREHENSIVE ([id number])Indication: Hypertension On: :32 Request LIPID PANEL ([id number])Indication: Hypertension On: :32 Request CBC WITH MANUAL DIFF ([id number])Indication: Hypertension On: :32 Request TSH (THYROID STIMULATING HORMONE) ([id number])Indication: Thyroid nodule On: :32 Request GLUCOSE TOLERANCE TEST (GTT) 2 hour ([id number])Indication: Urinary frequency On: :31 Request Planned Encounters Medical; 3 Month FU - On: 30-Aug-2018 15:45 [facility] Maddy Monterroso CNP, CNP, Mary E Planned Procedures MRI OF LUMBAR SPINE WITH AND WITHOUT On: 31-May-2018 Intent CONTRAST ([id number])By: Maddy Monterroso CNP, CNP, Mary E Toradol Injection, 30 mg ([id number])By: On: 31-May-2018 Intent Maddy Monterroso CNP, CNP, Mary E X-RAY OF LUMBAR SPINE, FOUR VIEWS On: 11-May-2018 Intent ([id number])By: Maddy Monterroso CNP 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 METERS, [place] XR HIP LEFT COMPLETE ([id number])By: Kriss On: 11-May-2018 Intent Maddy LYNCH CNP, Mary E Radiology - Hip - LeftBy: Jaydentripp CRIS, On: 10-May-2018 Intent Maddy Baker CNP Toradol Injection, 30 mg ([id number])By: On: 10-May-2018 Intent Maddy Monterroso CNP, CNP, Mary E Radiology - Lumbar SpineBy: Kriss On: 10-May-2018 Intent Maddy LYNCH CNP, Mary E DIAGNOSTIC DIGITAL MAMMOGRAPHY OF On: 16-Apr-2018 Intent RIGHT BREAST ([id number])By: Kriss Maddy LYNCH CNP, Mary E MAMMOGRAM BREAST RIGHT DIAGNOSTIC On: 07-Oct-2017 Intent ([id number])By: Kriss LYNCHMaddy CNP, Mary E DEXA SCAN AXIAL SKELETON ([id number])By: On: 20-Jul-2017 Intent Jaydentripp Maddy LYNCH CNP, Mary E SCREENING DIGITAL TOMOSYNTHESIS OF On: 20-Jul-2017 Intent BREAST ([id number])By: Kriss LYNCHMaddy CNP, Mary E CT - Abdomen & Pelvis Stone On: 20-Jul-2017 Intent ProtocolBy: Kriss Maddy LYNCH CNP, Mary E MAMMOGRAM BREAST BILATERAL SCREENING On: 11-Sep-2016 Intent DIGITAL ([id number])By: Kriss LYNCHMaddy CNP, Mary E Ultrasound - RenalBy: Kriss LYNCHMaddy On: 03-Jun-2016 Intent Maddy Arrington CNP ELECTROCARDIOGRAM, COMPLETE (ECG) On: 03-Jun-2016 Intent ([id number])By: Grace Nolasco LPN Comments: sinus rhythm TRANSVAGINAL ULTRASOUND ([id number])By: On: 21-Mar-2016 Intent Maddy Monterroso CNP, CNP, Mary E Ultrasound - PelvisBy: Kriss LYNCH, On: 17-Mar-2016 Intent Maddy Baker CNP Ultrasound - RenalBy: Kriss LYNCHMaddy On: 17-Mar-2016 Intent E Kriss CRISMaddy MAMMOGRAM, SCREENING, BOTH BREAST On: 06-Aug-2015 Intent ([id number])By: Maddy Monterroso CNP, CNP, Mary E Ultrasound - PelvisBy: Kriss LYNCH, On: 27-Jun-2015 Intent Maddy Baker CNP Comments: if done at [facility] please send to [facility] and Dr. [place] CT - Abdomen & Pelvis (IV Contrast On: 11-Jun-2015 Intent Needed)By: Maddy Monterroso CNP, CNP, Mary E Bone Density StudyBy: Madyd Monterroso CNP On: 23-Apr-2015 Intent E Maddy Monterroso CNP BIOPSY OF SKIN LESION, SINGLE On: 02-Oct-2014 Intent ([id number])By: Maddy Monterroso CNP, CNP, Mary E REMOVAL OF SKIN TAGS, UP TO 15 On: 02-Oct-2014 Intent ([id number])By: Maddy Monterroso CNP, CNP, Mary E CALCULATED BMI ABOVE THE UPPER On: 24-Jul-2014 Intent PARAMETER AND A FOLLOW-UP PLAN WAS DOCUMENTED IN THE MEDICAL RECORD ([id number])By: Maddy Monterroso CNP, CNP, Mary E HG A1C LEVEL < 7.0% ([id number])By: Kriss On: 24-Jul-2014 Intent CRIS [place] Monterroso CNP [place] EKG ([id number])By: Leyla Birch DO On: 12-Sep-2013 Intent Comments: nsr no acute chg 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 HANDLING/TRANSPORT On: 12-Sep-2013 Intent ([id number])By: Maddy Monterroso CNP, CNP, Mary E Aerosol Treatment ([id number])By: Kriss On: 24-Jun-2013 Intent 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 METERSMaddy Pam Monterroso CNP [place] Aerosol Treatment ([id number])By: Kriss On: 14-Jun-2013 Intent CRISMaddy Pam Monterroso CNP [place] SPECIMEN HANDLING/TRANSPORT On: 31-May-2013 Intent ([id number])By: Bibi Jain LPN Ultrasound - ThyroidBy: Kriss LYNCH, On: 28-Feb-2013 Intent Maddy Baker CNP Nuclear Medicine - OtherBy: Kriss On: 06-Jun-2011 Intent Maddy LYNCH CNP, Mary E Comments: LIVER-SPLEEN SCAN nuclear medicine CT - Abdomen & PelvisBy: Kriss LYNCH, On: 28-Feb-2011 Intent Maddy Baker CNP Breast Screening - BilateralBy: Fast On: 05-Jun-2010 Intent Ramonita JACKSON Ultrasound - ThyroidBy: Fast DO, On: 05-Jun-[address] - Brain/HeadBy: Tristan East DOa A On: 04-Jun-2010 Intent Radiology - Knee - Right - Weight On: 25-Feb-2010 Intent BearingBy: Ramonita East DO A Radiology - Lumbar SpineBy: Fast DO, On: 21-Dec-2009 Intent Ramonita A EKG ([id number])By: Tashia Casiano On: 15-Oct-2009 Intent Comments: ekg showed normal sinus rhythym, normal axis, no acute st/t wave changes Ultrasound - LiverBy: Ramonita East DO On: 16-Jul-2009 Intent A Radiology - Thoracic SpineBy: Eyal On: 23-Apr-2009 Intent Leyla JACKSON Radiology - Lumbar SpineBy: Eyal On: 23-Apr-2009 Intent Leyla JACKSON Radiology - Hand - RightBy: Fast DO, On: 09-Apr-2009 Intent Ramonita A Comments: attn right thumb MAMMOGRAM, SCREENING, BOTH BREASTS On: 26-Dec-2008 Intent ([id number])By: Ramonita East DO DXA, BONE DENSITY, AXIAL SKELETON On: 26-Dec-2008 Intent ([id number])By: Ramonita East DO Ultrasound - ThyroidBy: Fast DO, On: 05-Sep-2008 Intent Ramonita A EKG ([id number])By: Tashia Casiano On: 05-Sep-2008 Intent Comments: ekg showed normal sinus rhythym, normal axis, no acute st/t wave changes MAMMOGRAM, SCREENING, BOTH BREASTS On: 17-Feb-2007 Intent ([id number])By: NATALEE SCHMITZ CNP Ultrasound - PelvisBy: Ramonita East DO On: 21-Oct-2006 Intent A Ultrasound - ThyroidBy: Brayden DO, On: 21-Oct-2006 Intent Ramonita A Planned Medications INJECTION, KETOROLAC TROMETHAMINE, PER 15 MG Ordered: 10-May-2018 Pending Maddy Monterroso CNP, CNP, Mary E INJECTION, KETOROLAC TROMETHAMINE, PER 15 MG Ordered: 31-May-2018 PendMaddy Aguilar CNP, CNP, Maddy Orozco Instructions Name Dates Details Nonsmoker : How to access health information online Indication: Nonsmoker Nonsmoker : How to access health information online - Detail Indication: Nonsmoker Nonsmoker : Patient Instructions Indication: Nonsmoker Nonsmoker : How to access [...] Diabetes mellitus, controlled : DISCONTINUED - CALCIFEDIOL ([id number]) Indication: Diabetes mellitus, controlled Diabetes mellitus, controlled : DISCONTINUED - HGB A1C (62630) Indication: Diabetes mellitus, controlled DEFICIENCY, VITAMIN D NOS : DISCONTINUED - CALCIFEDIOL ([id number]) Indication: DEFICIENCY, VITAMIN D NOS Hypercholesteremia : DISCONTINUED - LIPID PANEL ([id number]) Indication: Hypercholesteremia Hypercholesteremia : DISCONTINUED - LIPID PANEL ([id number]) Indication: Hypercholesteremia DEFICIENCY, VITAMIN D NOS : DISCONTINUED - CALCIFEDIOL ([id number]) Indication: DEFICIENCY, VITAMIN D NOS Kidney stone [...] Indication: Bleeding gums Encounters Office Visit On: 31-May-2018 15:42 Encounter Reason: Follow up tests - Diagnostic tests include X-Ray. Note for Discuss procedure results: Follow up from hip/sciatica pain, has done PT x 3 and no reliefFeels like peg leg, difficult to stand and wt bear End: 31-May-2018 16:28 Worse with steps Difficult to work, Pt not helpingEncounter Diagnosis: BMI 30.0- 30.9,adult, Nonsmoker, Diabetes mellitus, controlled, Sciatica (724.3) [facility] Phone Encounter On: 11-May-2018 15:14 Encounter Diagnosis: [...] with dosing regimen and considered effective by heidi iepattie. Patient sleeps 6 (broken) hours per night. [...] like bra stuck her. Ultrasound done at [facility] Encounter Diagnosis: Hypertension, Flank pain End: 17-Mar-2016 [...] of disease: no overall impact. Nutrition: ba Caravan diet. The medical issues the patient is [...] for Follow up ER: Had xray in [facility] rt lower quad forund constipation given colace [...] office to be evaluate for work form ([employer]) (see scanned in form filled out)., [ADDITIONAL [...] to go up on meds-- she saw [facility] nov- told her come back in year-, [...] for chronic medical issues: she went to [facility] due to allergies-- she had [...] vitamins & iron. The medical issues the pa avril is following up for include All identified [...]
--- OUTSIDE RECORDS SUMMARY | 2018-09-24 05:44 | XMS RPT_ITS | Continuity of Care Document ---
:1960 Author Organization [facility] Address [address] [facility] [address] [place] [address] Phone Care Team Providers Name Role Phone [...] Adnexal cyst (N94.9, 625.8) Comments: CT done [facility] 6cm Adnexal cyst seeing Tezano Status: Active [...] Comments: removed by Dr. Kelton Owens at [facility] on on thyriod hormone replacemnt Status: [...] Refills: 0 Ordered:23-Jun-2016 Kriss LYNCH, Maddy Muniz [facility]ILOT, [place] Start : 23-Jun-2016 End : 30-Jun-2016 Inactive CITALOPRAM HYDROBROMIDE, 20MG (Oral Tablet) 1 Tablet daily for 0 days Quantity: 90 {Tablet} Refills: 1 Ordered:31-May-2013 Kriss LYNCH, [facility] [place] Start : 31-May-2013 End : 31-May-2013 Inactive DOCUSATE SODIUM, 100MG (Oral Capsule) 1 (one) Capsule bid for 30 days Quantity: 30 {Capsule} Refills: 0 Ordered:05-Nov-2015 Jaydena AREA RELIEF PILOT, Maddy Muniz AREA RELIEF PILOT, [place] Start : 05-Nov-2015 End : 05-Dec-2015 Inactive DOXYCYCLINE HYCLATE, 100MG (Oral Tablet) 1 (one) Tablet Twice daily for 0 days Quantity: 60 {Tablet} Refills: 0 Ordered:06-Sep-2010 Bibi Jain LPN Start : 23-Apr-2009 End : 06-Sep-2010 Inactive DRISDOL, [id number] (Oral Capsule) 1 Capsule twice weekly for [...] Start : 03-Jun-2016 End : 08-Aug-2016 Discontinued [facility] Oral Capsule 1 (one) [...] Tashia Casiano End : 09-Aug-2007 Discontinued ERGOCALCIFEROL, 63370NPFQ (Oral Capsule) 1 (one) Capsule Capsule twice [...] no obvious cause of spleenomegaly, sent to [employer] and food exposures from work Status: Resolved as of 12-Sep-2013 Strep pharyngitis (034.0) Status: Inactive as of 14-Apr-2017 Thumb pain (M79.646, 729.5) Status: Inactive as of 03-Jun-2016 Thyroid mass (246.9) Comments: enlarging, 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 [place] from [facility] thyroid adenoma Status: Inactive as of [...] Lead Electrocardiogram Result: Comments: See Note; NOTES: [facility] Cardiovascular Services [address] [place] [address] 12 Lead EKG 09/16/17 1620 MR#: [id number] Acct: [id number] Name: DAYANARA MURRAY Rep #: [id number] : 1960 56 From: Rod Bender MD Attending Dr: Tracey Barnhart MD Status: [facility] Ordering Dr: Tracey Barnhart MD Date: 09/16/17 [place] [facility] [place] F C Admitted: Test Reason : [...] ECG Confirmed by ROD BENDER MD ([id number]), deputy editor in chief ALEJANDRA AGOSTO ([id number]) on 09/18/2017 1:36:25 PM Referred By: Tracey Barnhart Confirmed By:ROD BENDER MD 09/18/17 1336 Date Rod Bender MD CC: Maddy Monterroso NP; Tracey Barnhart MD Signed 17-Sep-2017 Operative Report Result: Comments: See Note; NOTES: [facility] Medical Records Department [address] [place] [address] Operative Report 09/17/17 1454 MR#: [id number] Acct: [id number] Name: DAYANARA MURRAY Rep #: [id number] : 1960 56 From: Tracey Barnhart MD PCP: Maddy Monterroso NP Status: REG SDC Y Location: [place] [address] Report of Operation Date of Procedure: 09/17/17 Pre-Operative Diagnosis: compl ex right adexexal mass Post-Operative Diagnosis: Pelvic mass, adhesions of colon to anterior abdominal wall and vaginal cuff Surgery/Procedure Performed:: Diagnostic laparascopy, cystoscopy Description of Surgical Findings:: pelvic mass in midline over bladder and vaginal cufff, ovary not well defined but under adehsions. Adhesions of colon to anterior abdominal wall ammonia still operator: Cardenas ammonia still operator: Zaki CATES Type of Anesthesia:: General Anesthesiologist: [...] further intervention we will recommend consultation with EXPRESSIVE THERAPIST oncology at a tertiary care center. The [...] Date Tracey Barnhart MD CC: Maddy Monterroso PLEATING MACHINE OPERATOR; Tracey Barnhart MD Signed 17-Sep-2017 Operative Report Result: Comments: See Note; NOTES: [facility] Medical Records Department [address] [place] [address] Operative Report 09/17/17 1310 MR#: [id number] Acct: [id number] Name: DAYANARA MURRAY Rep #: [id number] : 1960 56 From: Tracey Barnhart MD PCP: Maddy Monterroso NP Status: REG SDC Y Location: [place] [address] ADDENDUM by Tracey Barnhart MD on 09/17/17 [...] left tube not able to be identified ammonia still operator: Angela Bennett Type of Anesthesia:: General Anesthesiologist: Jduit Sahni Special Medications: none Specimen's removed: none [...] Date Tracey Barnhart MD CC: Maddy Monterroso PLEATING MACHINE OPERATOR; Tracey Barnhart MD Signed 17-Sep-2017 Operative Report Result: Comments: See Note; NOTES: [facility] Medical Records Department [address] [place] [address] Operative Report 09/17/17 1310 MR#: [id number] Acct: [id number] Name: DAYANARA MURRAY Rep #: [id number] : 1960 56 From: Tracey Barnhart MD PCP: Maddy Monterroso NP Status: REG SDC Y Location: [place] [address]- Report of Operation Date of Procedure: 09/17/17 [...] left tube not able to be identified ammonia still operator: Angela Baumann Type of Anesthesia:: General Anesthesiologist: [...] Discharge Instruction Result: Comments: See Note; NOTES: [facility] Medical Records Department [address] [place] [address] Instructions for Home/Discharge Instructions 09/17/17 1229 MR#: [id number] Acct: [id number] Name: DAYANARA MURRAY Rep #: [id number] : 1960 56 From: Tracey Barnhart MD PCP: Maddy Monterroso NP Status: REG NVC Discharge Diet: No Restrictions - Increase fluid [...] HCl 500 mg PO DAILY 09/15/17 Hydrocodone/Acetaminophen [[place] 5-325 Tablet] 1 each PO Q6H PRN PRN 6 Days #20 tablet 09/17/17 Ibuprofen [ Motrin] 600 mg PO Q6H PRN #30 tab 09/17/17 The following prescriptions were given: Hydrocodone/Acetaminophen [[place] 5-325 Tablet] 1 each PO Q6H PRN PRN 6 Days #20 tablet PRN Reason: Pain Ibuprofen [Mo luz] 600 mg PO Q6H PRN #30 tab PRN Reason: Pain Primary Care Physician: Maddy Monterroso [Primary Care Provider] - Please Follow Up With: Tracey Barnhart MD - [phone] When: 1-2 weeks or as needed in my office 09/17/17 1230 <Electronically signed by Tracey Barnhart MD> Date Tracey Barnhart MD CC: Maddy Monterroso PLEATING MACHINE OPERATOR 26-Aug-2017 Abdomen/Pelvis without Cont Result: Comments: See Note; NOTES: [facility] Imaging Services [address] [place] [address] Abdomen/Pelvis without Cont MR#: [id number] Acct: [id number] Name: DAYANARA MURRAY Rep # : [id number] : 1960 F 56 From: Alejandra Urban MD PCP: Maddy Monterroso NP Status: REG CLI Study: Abdomen/Pelvis without Cont Date of Exam: 08/26/17 Exam# [id number] Ordering Dr: Maddy Monterroso T Abdomen And [...] supp ort , CC: Maddy Monterroso NP Local Delivery Truck Driver: Signed 04-Aug-2016 Kidney and Bladder Result: Comments: See Note; NOTES: [facility] Imaging Services [address] [place] [address] Verdana 4d Kidney and Bladder MR#: [id number] Acct: [id number] Name: DAYANARA MURRAY Rep #: [id number] : 1960 F 55 From: Jamie Monique DO PCP: Maddy Monterroso Status: REG CLI Study: Kidney and Bladder Date of Exam: 08/04/16 Exam# [id number] Ordering Dr: Maddy Monterroso STUDY: RENAL ULTRASO [...] cyst. There are no left renal calc erba. There is no left hydronephrosis. 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 No Drug Use Status: [...] Description Value Details :14 HgA1C , Office (50915) HgA1C , Office 5.8 % (Normal) Range: 4.6 - 7.1 :14 Blood Glucose , Office (51680) Blood Glucose , Office 121 (Normal) 68-Dbk-497110:38 Bedside Glucose Comments: [facility] [address] [place] [address] BEDSIDE GLU 98 mg/dL (Normal) Range: 70-110 Comments: MANAGEMENT OF PATIENT CARE PER NURSING PROTOCOL 81-Ehf-232235:18 Bedside Glucose Comments: [facility] of [address] [place] [address] BEDSIDE GLU 94 mg/dL (Normal) Range: 70-110 Comments: MANAGEMENT OF PATIENT CARE PER NURSING PROTOCOL 30-Gvh-523949:09 Hemoglobin A1c Comments: [facility] [address] [place], [id number] HGB A1C 6.2 % (Normal) Range: 4.2-6.3 55-Wji-410107:59 Basic Metabolic Profile (BMP) Comments: [facility] [address] [place], [id number] GAP 8 (Normal) Range: 5-15 CO2 28.0 [...] Comments: Please note revised GLUCOSE reference range wdevtbogv12/02/2018. 75-Nnp-517086:59 CBC-Complete Blood Cnt No Diff Comments: [facility] [address] [place], [id number] MPV 11.9 fL (Normal) Range: 6.2-12.0 PLT [...] 4.2-5.4 WBC 7.8 K/mm3 (Normal) Range: 4.4-11.0 06-Dio-527944:59 Thyroid Stim Hormone (TSH) Comments: [facility] [address] [place], [address] TSH 1.31 {uIU/mL} (Normal) Range: 0.358-3.74 :59 Type AND Screen Comments: Surgery Date: 09/17/17Hx of Preganancy in last 3 Months NoEver experience any problems with transfusion(s)? NHx of Transfusion in last 3 Months NReason for Type AND Screen/Red Cells: SURGERYSURGI EJ PROCEDURE: [facility] [address] [place], [address] Antibody Screen NEGATIVE (Normal) BLOOD TYPE GEL A POSITIVE (Normal) 16-Hxt-486546:52 HgA1C , Office (85899) HgA1C , Office 5.6 % (Normal) Range: 4.6 - 7.1 28-Yqo-214029:52 Blood Glucose , Office (35738) Blood Glucose , Office 87 (Normal) 11-Uje-110309:31 Urinalysis, Office (04625) UA - NITRITE Negative (Normal) URINE UROBILINGN OSMAN TIMED Normal mg/dL (Normal) UA - PROTEIN Negative mg/dL (Normal) UA - PH 5 (Abnormal) UA - BLOOD Negative (Normal) UA - SPECIFIC GRAVITY 1.020 (Normal) UA - KETONES Negative mg/dL (Normal) UA - BILIRUBIN Negative (Normal) UA - GLUCOSE Negative (Normal) :08 Basic Metabolic Profile (BMP) Comments: [facility] [address] [place], [address] GAP 8 (Normal) Range: 5-15 [...] :08 CBC-Complete Blood Cnt No Diff Comments: [facility] [address], [place], [id number] MPV 12.3 fL (Abnormal) Range: 6.2-12.0 PLT [...] (Normal) Range: 4.4-11.0 :17 HgA1C , Office (79572) Comments: 5.6 HgA1C , Office 5.6 % (Normal) Range: 4.6 - 7.1 :17 Blood Glucose , Office (77606) Comments: 98 Blood Glucose , Office 98 (Normal) 0-Nxp-599232:42 Microscopic Examination Comments: PATIENT NOT FASTINGPERFORMED BY: [email or web address].comCap[facility])Cpnkrm5747 [facility] [id number] Bacteria Few (Normal) Mucus Threads Present (Normal) Cast Type Hyaline casts (Normal) Casts Present {/lpf} (Abnormal) Epithelial Cells (non renal) 0-10 {/hpf} (Normal) Range: 0 - 10 RBC 0-2 {/hpf} (Normal) Range: 0 - 2 WBC 0-5 {/hpf} (Normal) Range: 0 - 5 9-Yvn-094313:42 MICROALBUMIN: CREATININE RATIO Comments: PATIENT NOT FASTINGPERFORMED BY: [facility] [id number] (42539) AND (11239) Microalb/Creat Ratio 4.1 {mg/g_creat} (Normal) Range: 0.0-30.0 Microalbumin, Urine 3.5 ug/mL (Normal) Creatinine, Urine 84.7 mg/dL (Normal) 1-Vrb-865998:42 URINALYSIS, W/ MICRO Comments: PATIENT NOT FASTINGPERFORMED BY: [email or web address].comCap[facility])Uduepy0238 [facility] [id number] Information: [id number] SRC: (70820) Microscopic Examination See below: (Normal) Comments: Microscopic was indicated and was performed. Nitrite, Urine Negative (Normal) Urobilinogen,Semi-Qn 0.2 mg/dL (Normal) Range: 0.2-1.0 Bilirubin Negative (Normal) Occult Blood Negative (Normal) Ketones Negative (Normal) Glucose Negative (Normal) Protein Negative (Normal) WBC Esterase 2+ (Abnormal) Appearance Clear (Normal) Urine-Color Yellow (Normal) pH 5.5 (Normal) Range: 5.0-7.5 Specific [place] 1.019 (Normal) Range: 1.005-1.030 0-Hqz-875517:42 URINE WILMER CULTURE-IDENTIFICATN Comments: PATIENT NOT FASTINGPERFORMED BY: [facility] [facility] [id number] (70157) Result 1 MUG (Normal) Comments: Mixed urogenital flora1,000 Colonies/mL Urine Culture,Comprehensive Final report (Normal) :16 Urinalysis, Office (74347) UA - LEUKOCYTE ESTERASE Small (Normal) UA - NITRITE Negative (Normal) URINE UROBILINGN OSMAN TIMED Normal mg/dL (Normal) UA - PROTEIN Negative mg/dL (Normal) UA - PH 5 (Abnormal) UA - BLOOD Negative (Normal) UA - SPECIFIC GRAVITY 1.025 (Normal) UA - KETONES Negative mg/dL (Normal) UA - BILIRUBIN Negative (Normal) UA - GLUCOSE Negative (Normal) :20 Urinalysis, Office (91044) UA - LEUKOCYTE ESTERASE Negative (Normal) UA - NITRITE Negative (Normal) URINE UROBILINGN OSMAN TIMED Normal mg/dL (Normal) UA - PROTEIN Negative mg/dL (Normal) UA - PH 5 (Abnormal) UA - BLOOD Negative (Normal) UA - SPECIFIC GRAVITY 1.010 (Normal) UA - KETONES Negative mg/dL (Normal) UA - BILIRUBIN Negative (Normal) UA - GLUCOSE Negative (Normal) 25-Jzm-882735:09 Microscopic Examination Comments: PATIENT NOT FASTINGPERFORMED BY: [employer] [facility] [id number] Bacteria Few (Normal) Mucus Threads Present (Normal) Epithelial Cells (non renal) 0-10 {/hpf} (Normal) Range: 0 - 10 RBC 3-10 {/hpf} (Abnormal) Range: 0 - 2 WBC 11-30 {/hpf} (Abnormal) Range: 0 - 5 55-Cjc-964164:09 URINE WILMER CULTURE-IDENTIFICATN Comments: PATIENT NOT FASTINGPERFORMED BY: [employer] [facility] [id number] (95066) Antimicrobial MIHEAD (Normal) Comments: S = Susceptible; [...] mL (Abnormal) Urine Final report Culture,Comprehensive (Abnormal) 64-Gmu-534706:09 URINALYSIS (32812) Comments: PATIENT NOT FASTINGPERFORMED BY: [facility]6[address] [facility] [id number] Information: SRC:SERA Microscopic Examination See below: (Normal) Comments: Microscopic was indicated and was performed. Nitrite, Urine Negative (Normal) Urobilinogen,Semi-Qn 0.2 mg/dL (Normal) Range: 0.2-1.0 Bilirubin Negative (Normal) Occult Blood 1+ (Abnormal) Ketones Negative (Normal) Glucose Negative (Normal) Protein Negative (Normal) WBC Esterase 2+ (Abnormal) Appearance Clear (Normal) Urine-Color Yellow (Normal) pH 7.0 (Normal) Range: 5.0-7.5 Specific [place] 1.007 (Normal) Range: 1.005-1.030 64-Tmg-153603:29 Urinalysis, Office (33817) UA - LEUKOCYTE ESTERASE Small (Normal) UA - NITRITE Negative (Normal) URINE UROBILINGN OSMAN TIMED Normal mg/dL (Normal) UA - PROTEIN Negative mg/dL (Normal) UA - PH 7 (Normal) UA - BLOOD Non Hemolyzed Moderate (Normal) UA - SPECIFIC GRAVITY 1.015 (Normal) UA - KETONES Negative mg/dL (Normal) UA - BILIRUBIN Negative (Normal) UA - GLUCOSE Negative (Normal) 10-Xfc-034631:06 URINE WILMER CULTURE-IDENTIFICATN Comments: PATIENT NOT FASTINGPERFORMED BY: [facility]Asc[facility]6[address] [facility] [id number] Information: SRC: (34373) Result 1 MUG (Normal) Comments: Mixed urogenital flora1,000 Colonies/mL Urine Culture,Comprehensive Final report (Normal) 90-Fns-844856:21 Urinalysis, Office (50643) UA - LEUKOCYTE ESTERASE Trace (Normal) UA - NITRITE Negative (Normal) URINE UROBILINGN OSMAN TIMED Normal mg/dL (Normal) UA - PROTEIN Negative mg/dL (Normal) UA - PH 7 (Normal) UA - BLOOD Negative (Normal) UA - SPECIFIC GRAVITY 1.020 (Normal) UA - KETONES Negative mg/dL (Normal) UA - BILIRUBIN Negative (Normal) UA - GLUCOSE Negative (Normal) 3-Rlc-286993:05 Blood Glucose , Office (04613) Comments: 76 Blood Glucose , Office 76 (Normal) 8-Zsd-676541:44 Urinalysis, Office (67570) UA - LEUKOCYTE ESTERASE Small (Normal) UA - NITRITE Negative (Normal) URINE UROBILINGN OSMAN TIMED Normal mg/dL (Normal) UA - PROTEIN Negative mg/dL (Normal) UA - PH 5 (Abnormal) UA - BLOOD Negative (Normal) UA - SPECIFIC GRAVITY 1.030 (Abnormal) UA - KETONES Negative mg/dL (Normal) UA - BILIRUBIN Negative (Normal) UA - GLUCOSE Negative (Normal) 82-Eka-803399:50 Blood Glucose , Office (31691) Blood Glucose , Office 102 (Normal) 46-Vbp-697818:32 Hemoglobin A1c Comments: Test performed at:[facility] [address] [place] [address] HGB A1C 7.1 % (Abnormal) Range: 4.2-6.3 52-Seo-698664:58 Blood Glucose , Office (07996) Blood Glucose , Office 99 (Normal) 13-Ieu-418325:49 ANTINUCLEAR ANTIBODIES DIRECT Comments: Test performed at:[facility] [address] [facility] [place] [address] TING-DIRECT Negative (Normal) Comments: Performed at: - [facility] [id number] Director: Rasheed Ziegler PhD, Phone: [phone] 89-Okm-245955:49 Erythrocyte Sed Rate Comments: Test performed at:[facility] [address] [place] [address] SED RATE 10 mm/h (Normal) Range: 0-30 32-Neb-975595:49 Rheumatoid Factor Comments: Test performed at:[facility] [address] [place] [address] RHEUMATOID FAC < 10.0 {IU/mL} (Normal) 96-Kxz-975217:49 Sjogren's Antibodies A/B Comments: Test performed at:[facility] [address] [place] [address] Anti-SS-B < 0.2 {AI} (Normal) Range: 0.0-0.9 Anti-SS-A < 0.2 {AI} (Normal) Range: 0.0-0.9 70-Hwj-12579:27 Pathology Report Comments: PERFORMED BY: [facility] [employer] Kpbvr43632 [facility] [id number] BY: [facility] Dermatopathology Cueqyvp[address] [id number] Information: [id number] See MATER Comments: Material submitted: .SHAVE BIOPSY R Rigoian provided ICD-9:701.9 ; Unspecified hypertrophic and atrophic condition of skinClinical history: Note (Normal) .ETIOLOGY UNKNOWN SKIN TAGS FOR MARGINSDiagnosis:IRRITATED VERRUCA VULGARIS.10/05/2014 Electronically signed: .Priscilla Philip MD, DermatopathologistGross description: .RECEIVED IN FORMALIN LABELED [facility] WITH NO DESIGNATION ONTHE CONTAINER AND DESIGNATED RIGHT ARM ON THE REQUISITION IS ATAN/YELLOW FRAGMENT OF SKIN MEASURING 0.3 X 0.3 X 0.1 CM. THEMARGIN IS MARKED WITH GREEN INK. IT IS BISECTED AND SUBMITTEDENTIRELY IN A SINGLE CASSETTE.LMS/JASPathologist provided ICD-9:078.10CPT .214118 75-Wtm-449854:05 HgA1C , Office (83757) Comments: 7.0 HgA1C , Office 7.0 % (Normal) Range: 4.6 - 7.1 70-Wpq-255398:05 Blood Glucose , Office (88236) Comments: 93 Blood Glucose , Office 93 (Normal) 14-Vsb-471210:25 HgA1C , Office (75500) HgA1C , Office 6.8 % (Normal) Range: 4.6 - 7.1 :19 HgA1C , Office (36687) HgA1C , Office 8.0 % (Abnormal) Range: 4.6 - 7.1 :19 Blood Glucose , Office (82291) Blood Glucose , Office 153 (Normal) Comments: non-fasting :58 HgA1C , Office (26803) HgA1C , Office 7.2 % (Abnormal) Range: 4.6 - 7.1 :34 URINE WILMER CULTURE-OSMAN COL Comments: PATIENT NOT FASTINGPERFORMED BY: [employer] [facility]Shijiebang Sakceh3893[facility] [id number] Information: SRC:UR [id number] COUNT (07952) Result 1 MUG (Normal) Comments: Mixed urogenital flora25,000-50,000 colony forming units per mL Urine Final report (Normal) Culture,Comprehensive :40 Urinalysis, Office (48414) UA - LEUKOCYTE ESTERASE Negative (Normal) UA - NITRITE Negative (Normal) URINE UROBILINGN OSMAN TIMED Normal mg/dL (Normal) UA - PROTEIN Negative mg/dL (Normal) UA - BLOOD Negative (Normal) UA - SPECIFIC GRAVITY 1.025 (Normal) UA - PH 7 (Normal) UA - KETONES Negative mg/dL (Normal) UA - BILIRUBIN Negative (Normal) UA - GLUCOSE Negative (Normal) 01-Wci-884931:21 Rapid Strep Test, Office (17979) Rapid Strep Test, Office Positive (Normal) :21 Rapid Flu (17432 x 2) Influenza A Ag negative a and b (Normal) 02-Uho-587734:06 URINE WILMER CULTURE-OSMAN COL Comments: PATIENT NOT FASTINGPERFORMED BY: [employer] [facility] Aoxhlc1179 [employer] TeckCounts include 234 beds at the [facility] [id number] Information: SRC:UR [id number] COUNT (49205) Antimicrobial MIHEAD (Normal) Comments: S = Susceptible; [...] mL (Normal) Urine Final report Culture,Comprehensive (Normal) 08-Mrh-201505:46 Urinalysis, Office (03357) UA - BILIRUBIN Negative (Normal) UA - BLOOD Negative (Normal) UA - GLUCOSE Negative (Normal) UA - KETONES Moderate mg/dL (Normal) Comments: trace UA - LEUKOCYTE ESTERASE Large (Normal) UA - NITRITE Negative (Normal) UA - PH 7.5 (Normal) UA - PROTEIN Negative mg/dL (Normal) UA - SPECIFIC GRAVITY 1.025 (Normal) URINE UROBILINGN OSMAN TIMED Normal mg/dL (Normal) Comments: 1.0E.U/dL 5-Ist-215546:52 CBCD,SMEAR DIFF RED CELL MORPH SeeNote {NORMAL} [...] Barrera MD :56 Blood Glucose , Office (91068) Blood Glucose , Office 135 (Normal) :56 HgA1C , Office (43423) HgA1C , Office 6.0 % (Normal) Range: 4.6 - 7.1 53-Ixj-628663:14 Rapid Strep Test, Office (65559) Rapid Strep Test, Negative (Normal) Office :00 CULTURE, THROAT See Note (Normal) Comments: Normal throat alexsandra isolated. No beta-hemolyticstreptococcus isolated. :24 VIT D,25 35408 19.7 ng/mL (Abnormal) Range: 32.0-100.0 Comments: Recent studies consider the lower limit of 32.0 ng/mL to carmen threshold for optimal health.Inderjit COLEMAN. J Nutr. 2004;135(2):317-22.Performed at: - [facility]CoJames [place] [address]Lab Director: Mariel Deleon MD, Phone: [phone] HGB A1C 5.4 % (Normal) Range: 4.0-6.3 Comments: The methodology of Hgb A1C has changed to [place] significant changes in patient results are expected. The reference range remains the same. :01 TSH 1.49 {uIU/mL} (Normal) Range: 0.358-3.74 :07 Blood Glucose , Office (12424) Blood Glucose , Office 108 (Normal) :42 HgA1C , Office (88303) HgA1C , Office 5.8 % (Normal) Range: 4.6 - 7.1 :42 Blood Glucose , Office (31992) Blood Glucose , Office 99 (Normal) :22 HgA1C , Office (00341) HgA1C , Office 5.8 % (Normal) Range: 4.6 - 7.1 :22 Blood Glucose , Office (75353) Blood Glucose , Office 93 (Normal) :02 [...] T PROT 7.4 g/dL (Normal) Range: 6.4-8.2 6-Qgg-452216:42 URINALYSIS W/O MICRO (73578) UA - APPEARANCE clear (Normal) UA - [...] (Normal) UA - URINE SEDIMENT neg (Normal) 11-Fnx-337275:30 CH/GC DNA 42053 CHLAM DNA 81105 SeeNote (Normal) Comments: Result: Negative GC DNA PROBE SeeNote (Normal) Comments: Result: Negative No swab in specimen when received.Test valid for male urethral and female endocervicalspecimens only.Performed At: [facility] [place], [place] [id number] 88-Bww-073271: AVEL PREP See Note {PER_HPF} Comments: FUNGAL ELEMENTS NONE SEEN 30 (Normal) 19-Cko-971709: WET PREP See Note (Normal) Comments: MOTILE TRICH N[facility] 23-Oye-753063:39 Urinalysis, Office (63230) Comments: ABN signed PE UA - BILIRUBIN Negative (Normal) UA - BLOOD Negative (Normal) UA - GLUCOSE Negative (Normal) UA - KETONES Negative mg/dL (Normal) UA - LEUKOCYTE ESTERASE Negative (Normal) UA - NITRITE Negative (Normal) UA - PH 6.0 (Normal) UA - PROTEIN Negative mg/dL (Normal) UA - SPECIFIC GRAVITY 1.005 (Normal) URINE UROBILINGN OSMAN TIMED Normal mg/dL (Normal) 92-Gnb-831463:35 CBCD,SMEAR DIFF CELLS COUNTED 100 (Normal) EOS [...] 47-70 WBC 7.6 K/mm3 (Normal) Range: 4.4-11.0 07-Tzy-944205:35 COMP METABOLIC A/G 1.2 {RATIO} (Normal) Range: [...] See Note (Normal) Comments: #1- [facility] HAVE CONFIRMED THE OBSERVATIONS OF OTHERS WHO HAVE DEMONSTRATED THAT PREVOTELLA, PORPHYROMONAS AND BACTEROIDES SPECIES OTHER THAN B.FRAGILIS GROUP ARE ROUTINELY ROBIN CEPTIBLE TO CEFOXITIN, CHLORAMPHENICOL, AND METRONIDAZOLE AND ARE USUALLY RESISTANT TO PENICILLIN. TESTING PERFORMED AT [facility]. ORIGINAL RE PORT ON FILE IN LAB CONTAINS ADDITIONAL TEST SITE INFORMATION. ANAEROBIC CULT TO REF LAB 2 ANAEROBIC ORGANISMS ISOLATED AND IDENTIFIED. ORGANISM 1: PREVOTELLA BIVIA-ORGANISM 2: TANA MCDONALDUS :40 CH/GC [id number] CHLAM DNA SeeNote (Normal) Comments: Result: Negative GC DNA PROBE SeeNote (Normal) Comments: Result: Negative Performed At: [facility] [place], [place] [id number] :40 CULTURE, URINE URINE CULTURE See Note [...] TRICH RAREWBC 2-4 0 :04 Urinalysis, Office (30461) Comments: ABn signed UA - BILIRUBIN Negative (Normal) UA - BLOOD Negative (Normal) UA - GLUCOSE Negative (Normal) UA - KETONES Negative mg/dL (Normal) UA - LEUKOCYTE ESTERASE Small (Normal) UA - NITRITE Negative (Normal) UA - PH 5.0 (Normal) UA - PROTEIN Negative mg/dL (Normal) UA - SPECIFIC GRAVITY 1.010 (Normal) URINE UROBILINGN OSMAN TIMED 2 mg/dL (Normal) 0-Faw-801998:10 CULTURE, URINE URINE CULTURE See Note {CFU/mL} [...] NON-EC $$ <=0.5 S :37 Urinalysis, Office (19840) UA - BILIRUBIN Negative (Normal) UA - BLOOD Non Hemolyzed Moderate (Normal) UA - GLUCOSE Negative (Normal) UA - KETONES Negative mg/dL (Normal) UA - LEUKOCYTE ESTERASE Moderate (Normal) UA - NITRITE Negative (Normal) UA - PH 7.0 (Normal) UA - PROTEIN Negative mg/dL (Normal) UA - SPECIFIC GRAVITY 1.010 (Normal) URINE UROBILINGN OSMAN TIMED Normal mg/dL (Normal) 03-Huz-65742:00 CBCD,SMEAR DIFF Comments: COMMENTS: IN AM BAND [...] (Normal) WBC 10.4 K/mm3 (Normal) Range: 4.4-11.0 71-Pdv-502047:00 CULTURE, URINE Comments: HOLD IN OE UNTIL [...] 1.49 INDETERMINANT > OR = 1.50 SUGGEST [place] :42 HYSTERECT P-HYST (Normal) Comments: OPERATION Hysterectomy, [...] 01/01/07 ANTIBODY SCREEN NEGATIVE (Normal) Comments: COMMENTS: [facility] OR 12/31/06 :00 BLOOD TYPE PT A POSITIVE (Normal) Comments: COMMENTS: PAT OR 12/31/06 :00 19-Eiq-390206:00 CBCD Comments: COMMENTS: RESULTS TO DR. MONTOYA [...] (Normal) Range: 5-40 :00 LIVER Comments: COMMENTS: [facility] OR 12/31/06 ALB 3.5 g/dL (Normal) Range: 3.4-5.0 ALK P 54 U/L (Normal) Range: 50-136 ALT 32 [iU]/L (Normal) Range: 30-65 AST 20 U/L (Normal) Range: 15-37 D BILI 0.07 mg/dL (Normal) Range: 0.00-0.30 T BILI 0.23 mg/dL (Normal) Range: 0.00-1.00 T PROT 6.8 g/dL (Normal) Range: 6.4-8.2 : ,SERUM Comments: COMMENTS: RESULTS TO DR. MONTOYA AND DR. EAST, [facility] OR 12/31/06 HCGSQUAL SeeNote m[iU]/mL (Normal) Comments: Result: NEGATIVE : PRO TIME Comments: COMMENTS: RESULTS TO DR. MONTOYA AND DR. EAST, [facility] OR 12/31/06 INR 1.0 (Normal) PROTIME 12.1 s (Normal) Range: 10.6-13.2 : PTT 23.5 s (Abnormal) Comments: COMMENTS: RESULTS TO DR. MONTOYA AND DR. EAST, [facility] OR 12/31/06 Range: 24.6-36.6 :25 ANAEROBIC CULT See Note (Normal) Comments: AMOUNT GROWTH GROWTH ORGANISM 1: PREVOTELLA BIVIA- 00-Gzz-120855:25 CH/GC DNA 15036 CHLAM DNA 30077 SeeNote (Normal) Comments: Result: Negative GC DNA PROBE SeeNote (Normal) Comments: Result: Negative Test valid for male urethral and female endocervicalspecimens only.Performed At: [facility] [place], [place] [id number] 09-Izt-578988:25 GENT CULT COMP GENT CULT COMP See [...] COCCI IN CHAINS NO GRAM NEGATIVE DIPLOCOCCI 19-Cnl-479159:25 AVEL PREP See Note {PER_HPF} Comments: FUNGAL ELEMENTS NONE SEEN (Normal) :25 WET PREP See Note (Normal) Comments: MOTILE TRICH 1+WBC 1 67-Fkt-499272:00 CULTURE, URINE URINE CULTURE See Note {CFU/mL} [...] NON-EC $$ <=0.5 S :57 Urinalysis, Office (76080) Comments: ABN signed UA - BILIRUBIN Negative (Normal) UA - BLOOD Hemolyzed Trace (Normal) UA - GLUCOSE Negative (Normal) UA - KETONES Negative mg/dL (Normal) UA - LEUKOCYTE ESTERASE Moderate (Normal) UA - NITRITE Negative (Normal) UA - PH 6.5 (Normal) UA - PROTEIN Negative mg/dL (Normal) UA - SPECIFIC GRAVITY 1.010 (Normal) URINE UROBILINGN OSMAN TIMED Normal mg/dL (Normal) 92-Kbg-90605:00 ASPIRATION P-ASPS (Normal) Comments: OPERATION FNA right [...] B12 1503 347 pg/mL (Normal) Range: 211-911 59-Sex-52084:38 CBCD,SMEAR DIFF ANISO 1+ (Normal) BAND 1 [...] mg/dL (Normal) Range: 34-200 Comments: Performed At: [address] [id number] :38 IRON+TIBC IRON SATURATION 4.0 % (Abnormal) Range: 15.0-55.0 IRON, SERUM 19 ug/dL (Abnormal) Range: 35-150 TIBC 481 ug/dL (Abnormal) Range: 250-450 :38 LDH 205 U/L (Abnormal) Range: 100-190 :38 RETIC 1.19 % (Normal) Range: 0.5-1.5 :55 GLU GTT-2 HOUR 110 mg/dL (Normal) Comments: 2HR GTT GLU 2 HR GLU GTT-2 HOUR from 0516:[id number]. Range: 70-120 :55 GLU GTT-1 HOUR 162 mg/dL (Normal) Comments: 2HR GTT GLU 1 HR GLU GTT-1 HOUR from 0516:[id number]. Range: 120-170 :28 GLU GTT-30 min. 175 mg/dL (Abnormal) Comments: 2HR GTT GLU 1/2 HR GLU GTT-30 min. from 0516:[id number]. Range: 110-170 :46 CBCD,SMEAR DIFF ANISO 1+ [...] Comments: 2HR GTT FASTING GLU GTT-FASTING from 0516:[id number]. Range: 70-110 Comments: GLUCOSE TOLERANCE TEST Reference Interval Non- Adults Fasting 70 - 110 30 minutes 110 - 170 1 hour 120 - 170 2 hour 70 - 120 3 hour 70 - 110 4 hour 70 - 110 5 hour 70 - 110 46-Hro-213137:46 LIPID CHOL 216 mg/dL (Abnormal) Comments: <200 [...] 0.2 EU/dl (Normal) Range: 0.2 - 1.0 58-Vbi-873414:46 TSH 1.50 {uIU/mL} (Normal) Range: 0.34-4.82 :05 PELVIC (NON-PREG) (HP) Radiology Report See Note (Normal) Comments: Exam Number: [id number] THYROID ULTRASOUND HISTORYThyroid nodule. High resolution real [...] for review. Reported By: MELI YE M.D. 24-Dmi-69651:05 THYROID () Radiology Report See Note (Normal) Comments: Exam Number: [id number] THYROID ULTRASOUND HISTORYThyroid nodule. High resolution real [...] for review. Reported By: MELI YE M.D. 86-Ksb-918317:15 Urinalysis, Office (84712) Comments: done-p UA - BILIRUBIN Negative (Normal) UA - BLOOD Negative (Normal) UA - GLUCOSE Negative (Normal) UA - KETONES Negative mg/dL (Normal) UA - LEUKOCYTE ESTERASE Negative (Normal) UA - NITRITE Negative (Normal) UA - PH 5.0 (Normal) UA - PROTEIN Negative mg/dL (Normal) UA - SPECIFIC GRAVITY 1.000 (Normal) URINE UROBILINGN OSMAN TIMED Normal mg/dL (Normal) 55-Bym-660972:45 CULTURE, URINE URINE CULTURE See Note {CFU/mL} [...] : FOLLOW UP IN 4 WEEKS with [facility] to go over BS diary, diet etc Indication: Impaired fasting glucose Abnormal glucose tolerance test : FOLLOW UP IN 1 WEEK [facility] for meter instruction, begin metformin, etc Indication: [...] Indication: Urinary frequency Planned Observations LIPID PANEL (38742)Indication: Hypertension On: :26 Request CBC & PLATELETS (AUTO) (34511)Indication: Hypertension On: :26 Request CALCIFEDIOL (95721)Indication: Hypertension On: :26 Request METABOLIC PANEL, COMPREHENSIVE (65859)Indication: Hypertension On: 13-Apr-20188:25 Request HGB A1C (44569)Indication: Diabetes mellitus, controlled On: 12-Qfd-776535:33 Request CBC, Platelets & Auto Diff (53891)Indication: Hypertension On: 18-Jan-2018 Request Lipid Panel (49277)Indication: Hypertension On: 18-Jan-2018 Request Metabolic Panel, Comprehensive (41511)Indication: Hypertension On: 18-Jan-2018 Request Metabolic Panel, Comprehensive (34728)Indication: Diabetes mellitus, controlled On: 80-Paa-350411:28 Request HGB A1C (24525)Indication: Diabetes mellitus, controlled On: 35-Emd-093619:28 Request TSH (17209)Indication: Diabetes mellitus, controlled On: 07-Hia-344465:50 Request Comments: mar 2017 URINALYSIS W MICROSCOPY (94459)Indication: Flank pain On: :09 Request URINE WILMER CULTURE-OSMAN COL COUNT (12605)Indication: Flank pain On: :08 Request CALCIFEDIOL (52144)Indication: DEFICIENCY, VITAMIN D NOS On: :39 Request Comments: to be done December 2016 LIPID PANEL (41786)Indication: Hypercholesteremia On: :38 Request Comments: print to be done prior to next visit URINALYSIS, W/ MICRO (14193)Indication: Kidney stone on right side On: :36 Request HGB A1C (27719)Indication: Hypercholesteremia On: :49 Request Lipid Panel (79980)Indication: Diabetes mellitus, controlled On: :49 Request Metabolic Panel, Comprehensive (68913)Indication: Diabetes mellitus, controlled On: :48 Request TSH (30509)Indication: Diabetes mellitus, controlled On: :48 Request CBC, Platelets & Auto Diff (35280)Indication: Diabetes mellitus, controlled On: :48 Request HGB A1C (32898)Indication: Uncontrolled diabetes mellitus type 2 without complications On: :46 Request CALCIFEDIOL (25648)Indication: Uncontrolled diabetes mellitus type 2 without complications On: :46 Request TSH (31425)Indication: Uncontrolled diabetes mellitus type 2 without complications On: :46 Request CBC, Platelets & Auto Diff (06265)Indication: Uncontrolled diabetes mellitus type 2 without complications On: :46 Request Lipid Panel (30330)Indication: Uncontrolled diabetes mellitus type 2 without complications On: :46 Request Metabolic Panel, Comprehensive (23018)Indication: Uncontrolled diabetes mellitus type 2 without complications On: :46 Request Metabolic Panel, Comprehensive (92729)Indication: Kidney stone on right side On: :44 Request PT (PROTHROMBIN TIME) (17010)Indication: Preop examination On: :20 Request CBC, Platelets & Auto Diff (17733)Indication: Preop examination On: 50-Bqv-231973:20 Request CBC, Platelets & Auto Diff (71765)Indication: Preop examination On: :19 Request Metabolic Panel, Comprehensive (07155)Indication: Preop examination On: :19 Request Metabolic Panel, Basic (86432)Indication: Flank pain On: :43 Request Hemoglobin Glyclated (HGB A1C) (47551)Indication: Uncontrolled diabetes mellitus type 2 without complications On: 9-Oft-583125:04 Request CREATININE CLEARANCE (22203)Indication: Abdominal pain, acute, right upper quadrant On: 43-Wfq-405212:54 Request Comments: STAT Hemoglobin Glyclated (HGB A1C) (76490)Indication: Uncontrolled diabetes mellitus type 2 without complications On: 70-Nan-187479:25 Request HEPATIC FUNCTION PANEL (20506)Indication: Hypercholesteremia On: 28-Fpy-630096:37 Request Comments: repeat November fasting TSH (THYROID STIMULATING HORMONE) (34418)Indication: Uncontrolled diabetes mellitus type 2 without complications On: 53-Amo-159516:47 Request CALCIFIDIOL (57871) VIT D 25Indication: Uncontrolled diabetes mellitus type 2 without complications On: 22-Uhr-042370:47 Request MICROALBUMIN: CREATININE RATIO (95318) AND (66157)Indication: Uncontrolled diabetes mellitus type 2 without complications On: 57-Tqh-242664:47 Request METABOLIC PANEL, COMPREHENSIVE (11025)Indication: Uncontrolled diabetes mellitus type 2 without complications On: 68-Pcz-277875:47 Request LIPID PANEL (35025)Indication: Uncontrolled diabetes mellitus type 2 without complications On: 28-Xac-182704:47 Request Metabolic Panel, Comprehensive (88375)Indication: Uncontrolled diabetes mellitus type 2 without complications On: 85-Cfd-519908:44 Request Lipid Panel (20938)Indication: Uncontrolled diabetes mellitus type 2 without complications On: 51-Xho-169616:44 Request Blood Glucose , Office (75591)Indication: Uncontrolled diabetes mellitus type 2 without complications On: 46-Afd-031074:25 Request BLD CNT, MANUAL CELL COUNT, EACH (57278)Indication: Thyroid nodule On: 2-Anw-417720:56 Request URINALYSIS, AUTOMATED W/ MICRO (14228)Indication: Thyroid nodule On: 6-Rmm-131704:56 Request 24HR URINE CREATININE (22420)Indication: Thyroid nodule On: :56 Request MICROALBUMIN, TIMED 24 UR 914111 (94511)Indication: Thyroid nodule On: 7-Xtt-337578:56 Request CALCIFEDIOL (10102)Indication: Thyroid nodule On: 8-Mpq-907915:55 Request Metabolic Panel, Comprehensive (61635)Indication: Uncontrolled diabetes mellitus type 2 without complications On: 2-Uqd-380501:55 Request TSH (THYROID STIMULATING HORMONE) (09557)Indication: Thyroid nodule On: 6-Fhu-106490:54 Request LIPID PANEL (47781)Indication: GERD (gastroesophageal reflux disease) On: 3-Wej-630870:52 Request CBC WITH MANUAL DIFF (50569)Indication: Hypertension On: 07-Uam-130926:00 Request Vitamin D Hydroxy (38890)Indication: Depression On: :59 Request TSH (93376)Indication: Depression On: :59 Request URINALYSIS, W/ MICRO (44510)Indication: Hypertension On: :59 Request MICROALBUMIN: CREATININE RATIO (74491) AND (56492)Indication: Hypertension On: :59 Request METABOLIC PANEL, COMPREHENSIVE (37528)Indication: Hypertension On: :59 Request LIPID PANEL (62142)Indication: Hypertension On: :59 Request CBC, Platelets & Auto Diff (69341)Indication: Fatigue On: :29 Request Metabolic Panel, Basic (46589)Indication: Fatigue On: 21-Cti-270322:29 Request WILMER CULTURE-OTHER (67973)Indication: Pharyngitis, acute On: 49-Clo-201252:25 Request Influenza A&B Viral Culture (29494)Indication: Pharyngitis, acute On: 92-Jft-238104:21 Request T4, FREE (THYROXINE) (29264)Indication: Thyroid nodule On: 66-Tqq-652637:01 Request FREE TRIDOTHYRONINE (T3) (53304)Indication: Thyroid nodule On: 51-Kxs-138442:00 Request TSH (THYROID STIMULATING HORMONE) (18600)Indication: Thyroid nodule On: 90-Tde-499709:00 Request HEPATIC FUNCTION PANEL (00336)Indication: Hepatomegaly On: 7-Oti-335899:13 Request CBC with manual diff (98046)Indication: Hepatomegaly On: 6-Zsd-386715:13 Request HEPATIC FUNCTION PANEL (13676)Indication: Splenomegaly On: 1-Xcm-164317:57 Request CBC with manual diff (90924)Indication: Splenomegaly On: 2-Gnh-336508:57 Request CCP ANTIBODY (41123)Indication: Pain in unspecified joint On: :10 Request SED RATE ERYTHROCYTE (86431)Indication: Pain in unspecified joint On: 79-Kcf-40366:10 Request C-REACTIVE PROTEIN (46491)Indication: Pain in unspecified joint On: :10 Request RHEUMATOID FACTOR-QUANT (72960)Indication: Pain in unspecified joint On: :10 Request TING (ANTINUCLEAR ANTIBODY) (29547)Indication: Pain in unspecified joint On: :10 Request CBC WITH MANUAL DIFF (59975)Indication: Pain in unspecified joint On: :10 Request METABOLIC PANEL, COMPREHENSIVE (13334)Indication: Pain in unspecified joint On: :10 Request WILMER CULTURE-OTHER (01719)Indication: Pharyngitis, acute On: 53-Tdf-527905:14 Request Hemoglobin Glyclated (HGB A1C) (28816)Indication: Abnormal glucose tolerance test On: :52 Request CALCIFEDIOL (25573)Indication: Abnormal glucose tolerance test On: :15 Request TSH (38686)Indication: Fatty liver On: :11 Request LIPID PANEL (82322)Indication: Hypercholesteremia On: 25-Lli-496800:54 Request CBC WITH MANUAL DIFF ([id number])Indication: Hypertension On: 39-Pjw-447699:54 Request METABOLIC PANEL, COMPREHENSIVE (69318)Indication: Elevated LFTs On: 61-Gyx-330984:54 Request MICROALBUMIN: CREATININE RATIO (52161) AND (49478)Indication: Abnormal glucose tolerance test On: 37-Yin-942880:54 Request METABOLIC PANEL, COMPREHENSIVE (60041)Indication: Hypertension On: 14-Exm-972861:56 Request LIPID PANEL (96400)Indication: Hypercholesteremia On: 32-Npc-748774:56 Request SED RATE ERYTHROCYTE (91803)Indication: Pain in unspecified hip On: 13-Xvk-867613:55 Request C-REACTIVE PROTEIN (63956)Indication: Pain in unspecified hip On: 36-Xbg-621966:55 Request RHEUMATOID FACTOR-QUANT (74126)Indication: Pain in unspecified hip On: 47-Hmf-207121:55 Request TING (ANTINUCLEAR ANTIBODY) (88779)Indication: Pain in unspecified hip On: 59-Cmv-370212:55 Request MICROALBUMIN: CREATININE RATIO (92062) AND (52548)Indication: Other specified abnormal findings of blood chemistry On: 34-Ivf-766590:54 Request GLUCOSE TOLERANCE TEST (GTT) 2 hour (35777)Indication: Other specified abnormal findings of blood chemistry On: 73-Ett-876999:54 Request LIPID PANEL (83491)Indication: Hypercholesteremia On: :17 Request METABOLIC PANEL, COMPREHENSIVE (79293)Indication: Elevated LFTs On: 60-Nxj-105059:17 Request METABOLIC PANEL, COMPREHENSIVE (44473)Indication: Elevated LFTs On: :15 Request HEPATITIS A, B & C PANELSIndication: Elevated LFTs On: :15 Request LIPID PANEL (88927)Indication: Low HDL (under 40) On: 9-Rol-367362:52 Request HEPATIC FUNCTION PANEL (59699)Indication: Elevated LFTs On: 8-Slp-897437:52 Request MICROALBUMIN: CREATININE RATIO (05167) AND (55715)Indication: Hypertension On: 13-Gai-791050:23 Request CBC WITH MANUAL DIFF (43959)Indication: Chronic blood loss anemia On: 34-Ipr-346233:23 Request METABOLIC PANEL, COMPREHENSIVE (60325)Indication: Hypopotassemia On: 76-Cti-776902:22 Request HEPATIC FUNCTION PANEL (48307)Indication: Hypercholesteremia On: 01-Pox-759333:22 Request LIPID PANEL (58629)Indication: Hypercholesteremia On: 23-Kso-450171:22 Request LIPID PANEL (92614)Indication: Hypercholesteremia On: :27 Request MICROALBUMIN: CREATININE RATIO (36094) AND (94381)Indication: Hypertension On: : Request URINALYSIS W/O MICRO (90917)Indication: Hypertension On: : Request TSH (26779)Indication: Thyroid nodule On: :26 Request METABOLIC PANEL, COMPREHENSIVE (21520)Indication: Hypertension On: : Request CBC WITH MANUAL DIFF (68637)Indication: Hypertension On: :26 Request LIPID PANEL (40587)Indication: Low HDL (under 40) On: :42 Request CBC WITH MANUAL DIFF (83057)Indication: Chronic blood loss anemia On: :42 Request METABOLIC PANEL, COMPREHENSIVE (62665)Indication: Hypertension On: :42 Request METABOLIC PANEL, COMPREHENSIVE (52493)Indication: Hypertension On: :56 Request LIPID PANEL (91567)Indication: Low HDL (under 40) On: :56 Request CBC WITH MANUAL DIFF (26508)Indication: Chronic blood loss anemia On: :55 Request WET MOUNT WITH AVEL (82293)Indication: Vaginal discharge On: :09 Request CULTURE, GONOCOCCUS (79186)Indication: Vaginal discharge On: :09 Request CULTURE CHLAMYDIA (70753)Indication: Vaginal discharge On: :09 Request Thin prep Pap (58953)Indication: Well woman exam On: :08 Request WET MOUNT (32355)Indication: Vaginal discharge On: :37 Request Comments: with avel CULTURE, GONOCOCCUS (63491)Indication: Vaginal discharge On: :37 Request CULTURE CHLAMYDIA (23687)Indication: Vaginal discharge On: :37 Request BACT CULTURE ANY-ANAEROBIC (88177)Indication: Vaginal discharge On: :37 Request WILMER CULTURE-OTHER (84567)Indication: Vaginal discharge On: :37 Request URINE WILMER CULTURE (OSMAN COL COUNT) (90815)Indication: dysuria On: :36 Request LIPID PANEL (14549)Indication: Hypercholesteremia On: :36 Request CBC WITH MANUAL DIFF (63062)Indication: Chronic blood loss anemia On: :34 Request METABOLIC PANEL, COMPREHENSIVE (73865)Indication: Hypopotassemia On: :34 Request WET MOUNT WITH AVEL (67562)Indication: Vaginal discharge On: :11 Request BACT CULTURE ANY-ANAEROBIC (48535)Indication: Vaginal discharge On: :11 Request WILMER CULTURE-OTHER ([id number])Indication: Vaginal discharge On: :10 Request URINE WILMER CULTURE-IDENTIFICATN (28955)Indication: dysuria On: :09 Request CBC WITH MANUAL DIFF ([id number])Indication: Chronic blood loss anemia On: :59 Request Comments: 1 month LIPID PANEL (04101)Indication: Hypercholesteremia On: :59 Request Comments: 3 mos HEPATIC FUNCTION PANEL (95834)Indication: Hypercholesteremia On: :59 Request URINE WILMER CULTURE (OSMAN COL COUNT) (88091)Indication: Urinary frequency On: :33 Request MICROALBUMIN URINE QUANT (91943)Indication: Hypertension On: :32 Request URINALYSIS W/O MICRO (14019)Indication: Hypertension On: :32 Request TSH (61568)Indication: Hypertension On: :32 Request METABOLIC PANEL, COMPREHENSIVE (68331)Indication: Hypertension On: :32 Request LIPID PANEL (63340)Indication: Hypertension On: :32 Request CBC WITH MANUAL DIFF (33344)Indication: Hypertension On: :32 Request TSH (THYROID STIMULATING HORMONE) (44098)Indication: Thyroid nodule On: :32 Request GLUCOSE TOLERANCE TEST (GTT) 2 hour (29866)Indication: Urinary frequency On: :31 Request Planned Encounters Medical; 3 Month FU - On: 30-Aug-2018 15:45 [facility] Maddy Monterroso CNP, CNP, Mary E Planned Procedures MRI OF LUMBAR SPINE WITH AND WITHOUT On: 31-May-2018 Intent CONTRAST (49611)By: Maddy Monterroso CNP, CNP, Mary E Toradol Injection, 30 mg ([id number])By: On: 31-May-2018 Intent Maddy Monterroso CNP, CNP, Mary E X-RAY OF LUMBAR SPINE, FOUR VIEWS On: 11-May-2018 Intent (89157)By: Maddy Monterroso CNP AREA RELIEF PILOT, [place] XR HIP LEFT COMPLETE (49953)By: Kriss On: 11-May-2018 Intent Maddy LYNCH CNP, Mary E Radiology - Hip - LeftBy: Jaydentripp CRIS, On: 10-May-2018 Intent Maddy Baker CNP Toradol Injection, 30 mg ([id number])By: On: 10-May-2018 Intent Maddy Monterroso CNP, CNP, Mary E Radiology - Lumbar SpineBy: Kriss On: 10-May-2018 Intent Maddy LYNCH CNP, Mary E DIAGNOSTIC DIGITAL MAMMOGRAPHY OF On: 16-Apr-2018 Intent RIGHT BREAST ([id number])By: Kriss Maddy LYNCH CNP, Mary E MAMMOGRAM BREAST RIGHT DIAGNOSTIC On: 07-Oct-2017 Intent (81127)By: Kriss LYNCHMaddy CNP, Mary E DEXA SCAN AXIAL SKELETON (98147)By: On: 20-Jul-2017 Intent Jaydentripp Maddy LYNCH CNP, Mary E SCREENING DIGITAL TOMOSYNTHESIS OF On: 20-Jul-2017 Intent BREAST (37290)By: Kriss LYNCHMaddy CNP, Mary E CT - Abdomen & Pelvis Stone On: 20-Jul-2017 Intent ProtocolBy: Kriss Maddy LYNCH CNP, Mary E MAMMOGRAM BREAST BILATERAL SCREENING On: 11-Sep-2016 Intent DIGITAL (10270)By: Kriss LYNCHMaddy CNP, Mary E Ultrasound - RenalBy: Kriss LYNCHMaddy On: 03-Jun-2016 Intent Maddy Arrington CNP ELECTROCARDIOGRAM, COMPLETE (ECG) On: 03-Jun-2016 Intent (36217)By: Grace Nolasco LPN Comments: sinus rhythm TRANSVAGINAL ULTRASOUND (98290)By: On: 21-Mar-2016 Intent Maddy Monterroso CNP, CNP, Mary E Ultrasound - PelvisBy: Kriss LYNCH, On: 17-Mar-2016 Intent Maddy Baker CNP Ultrasound - RenalBy: Kriss LYNCHMaddy On: 17-Mar-2016 Intent E Kriss CRISMaddy MAMMOGRAM, SCREENING, BOTH BREAST On: 06-Aug-2015 Intent ([id number])By: Maddy Monterroso CNP, CNP, Mary E Ultrasound - PelvisBy: Kriss LYNCH, On: 27-Jun-2015 Intent Maddy Baker CNP Comments: if done at [facility] please send to [facility] and Dr. [place] CT - Abdomen & Pelvis (IV Contrast On: 11-Jun-2015 Intent Needed)By: Maddy Monterroso CNP, CNP, Mary E Bone Density StudyBy: Maddy Monterroso CNP On: 23-Apr-2015 Intent E Maddy Monterroso CNP BIOPSY OF SKIN LESION, SINGLE On: 02-Oct-2014 Intent ([id number])By: Maddy Monterroso CNP, CNP, Mary E REMOVAL OF SKIN TAGS, UP TO 15 On: 02-Oct-2014 Intent (98118)By: Maddy Monterroso CNP, CNP, Mary E CALCULATED BMI ABOVE THE UPPER On: 24-Jul-2014 Intent PARAMETER AND A FOLLOW-UP PLAN WAS DOCUMENTED IN THE MEDICAL RECORD ([id number])By: Maddy Monterroso CNP, CNP, Mary E HG A1C LEVEL < 7.0% (3044F)By: Kriss On: 24-Jul-2014 Intent CRIS KeyanaPam Monterroso CNP [place] EKG (56010)By: Leyla Birch DO On: 12-Sep-2013 Intent Comments: nsr no acute chg SPECIMEN HANDLING/TRANSPORT On: 12-Sep-2013 Intent (73800)By: Maddy Monterroso CNP, CNP, Mary E Aerosol Treatment (36392)By: Kriss On: 24-Jun-2013 Intent AREA RELIEF PILOTMaddy Pam Monterroso CNP [place] Aerosol Treatment (92880)By: Kriss On: 14-Jun-2013 Intent CRISMaddy Pam Monterroso CNP [place] SPECIMEN HANDLING/TRANSPORT On: 31-May-2013 Intent (94922)By: Bibi Jain LPN Ultrasound - ThyroidBy: Kriss [...] DO, On: 21-Dec-2009 Intent Ramonita A EKG (02084)By: Tashia Casiano On: 15-Oct-2009 Intent Comments: ekg [...] MAMMOGRAM, SCREENING, BOTH BREASTS On: 26-Dec-2008 Intent (87617)By: Ramonita East DO DXA, BONE DENSITY, AXIAL SKELETON On: 26-Dec-2008 Intent (18209)By: Ramonita East DO Ultrasound - ThyroidBy: Fast DO, On: 05-Sep-2008 Intent Ramonita A EKG (04695)By: Tashia Casiano On: 05-Sep-2008 Intent Comments: ekg showed normal sinus rhythym, normal axis, no acute st/t wave changes MAMMOGRAM, SCREENING, BOTH BREASTS On: 17-Feb-2007 Intent (95729)By: NATALEE SCHMITZ CNP Ultrasound - PelvisBy: Ramonita [...] Diabetes mellitus, controlled : DISCONTINUED - CALCIFEDIOL (24165) Indication: Diabetes mellitus, controlled Diabetes mellitus, controlled : DISCONTINUED - HGB A1C (40113) Indication: Diabetes mellitus, controlled DEFICIENCY, VITAMIN D NOS : DISCONTINUED - CALCIFEDIOL (85104) Indication: DEFICIENCY, VITAMIN D NOS Hypercholesteremia : DISCONTINUED - LIPID PANEL (57630) Indication: Hypercholesteremia Hypercholesteremia : DISCONTINUED - LIPID PANEL (37002) Indication: Hypercholesteremia DEFICIENCY, VITAMIN D NOS : DISCONTINUED - CALCIFEDIOL (50047) Indication: DEFICIENCY, VITAMIN D NOS Kidney stone [...] stuck her. Ultrasound done at [facility] Encounter Diagnosis: Hypertension, Flank pain End: [...] of disease: no overall impact. Nutrition: ba [employer] diet. The medical issues the patient is [...] for Follow up ER: Had xray in [facility] rt lower quad forund constipation given [...] to go up on meds-- she saw [place] nov- told her come back in year-, [...] for chronic medical issues: she went to [facility] due to allergies-- she had a [...]
--- OUTSIDE RECORDS SUMMARY | 2018-09-24 05:45 | XMS RPT_ITS | Continuity of Care Document ---
:1960 Author Organization [facility] Address [address] [place] [address] Phone Care Team Providers Name Role Phone [...] Adnexal cyst (N94.9, 625.8) Comments: CT done [facility] 6cm Adnexal cyst seeing Tezano Status: [...] Comments: removed by Dr. Kelton Owens at [facility] on on thyriod hormone replacemnt Status: Active [...] Refills: 0 Ordered:23-Jun-2016 Kriss LYNCH, Maddy Muniz HOME HEALTH CAREGIVER, [place] Start : 23-Jun-2016 End : 30-Jun-2016 Inactive CITALOPRAM HYDROBROMIDE, 20MG (Oral Tablet) 1 Tablet daily for 0 days Quantity: 90 {Tablet} Refills: 1 Ordered:31-May-2013 Kriss LYNCH, [facility] [place] Start : 31-May-2013 End : 31-May-2013 Inactive DOCUSATE SODIUM, 100MG (Oral Capsule) 1 (one) Capsule bid for 30 days Quantity: 30 {Capsule} Refills: 0 Ordered:05-Nov-2015 Jaydena HOME HEALTH CAREGIVER, Maddy Muniz HOME HEALTH CAREGIVER, [place] Start : 05-Nov-2015 End : 05-Dec-2015 Inactive DOXYCYCLINE HYCLATE, 100MG (Oral Tablet) 1 (one) Tablet Twice daily for 0 days Quantity: 60 {Tablet} Refills: 0 Ordered:06-Sep-2010 Bibi Jain LPN Start : 23-Apr-2009 End : 06-Sep-2010 Inactive DRISDOL, 87237AWTO (Oral Capsule) 1 Capsule twice weekly for [...] Start : 03-Jun-2016 End : 08-Aug-2016 Discontinued [facility] Oral Capsule 1 [...] Tashia Casiano End : 09-Aug-2007 Discontinued ERGOCALCIFEROL, 84219ANLZ (Oral Capsule) 1 (one) Capsule Capsule twice [...] no obvious cause of spleenomegaly, sent to [employer] and food exposures from work Status: Resolved as of 12-Sep-2013 Strep pharyngitis (034.0) Status: Inactive as of 14-Apr-2017 Thumb pain (M79.646, 729.5) Status: Inactive as of 03-Jun-2016 Thyroid mass (246.9) Comments: enlarging, 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 [place] 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 Low back pain, left leg and bilateral feet for many years. Sciatica. TECHNIQUE: Standardized fat and water weighted pulse sequences were obtai serafin in the sagittal and axial planes. COMPARISON: CT of the abdomen and pelvis 08/26/2017. FINDINGS: T10-T11: (Sagittal only). Normal endplates. Normal disc height, hydration and morphology. No ventral extra dural defect. Normal central canal and bilateral intervertebral neural foramina. T11-T12: (Sagittal only). Normal endplates. Normal disc height, hydration an d morphology. No ventral extradural defect. Normal central canal and bilateral intervertebral neural foramina. T12-L1: (Sagittal only). Normal endplates. Normal disc height, hydration and morphology. N o ventrolateral defect. Normal central canal and bilateral intervertebral neural foramina. Normal lumbar lordosis. There is no substantial scoliosis. Normal conus medullaris that terminates at the T12- L1 disc level. L1-2: Normal endplates. Minimal disc space height narrowing. Small posterior bulging disc. Normal central canal and bilateral lateral recesses. Normal facet joints. Normal bilateral inte rvertebral neural foramina. L2-3: Normal endplates. Normal disc height, hydration and morphology. Normal bilateral facet joints. Normal central canal and bilateral lateral recesses. Normal bilateral in tervertebral neural foramina. L3-4: Normal endplates. Mild disc space height narrowing. Minimal degenerative anterolisthesis of L3 on L4 with small posterior bulging disc. Normal central canal and bila teral lateral recesses. Mild degenerative facet arthropathy. Normal bilateral intervertebral neural foramina. L4-5: Normal endplates. Normal disc height and morphology. Normal central canal and bilater al lateral recesses. Mild right degenerative facet arthropathy. Normal left facet joint. Normal bilateral intervertebral neural foramina. L5-S1: Normal endplates. Mild disc space height narrowing. Norm al ventral extra dural defect. Normal central canal and bilateral lateral recesses. Mild asymmetric degenerative facet arthropathy. Normal bilateral intervertebral neural foramina. Normal visualized sa cral ala. Normal visualized paraspinous soft tissue structures. MRI/Spine Lumbar (Routine) IMPRESSION: 1. No MRI evidence of lumbar extruded dis c fragment, spinal stenosis or nerve root displacement. 2. Minimal degenerative anterolisthesis of L3 on L4 with small posterior bulging disc. This is a new finding when compared to 08/26/2017 CT of the abdomen and pelvis. 3. Mild right L4-L5 degenerative facet arthropathy. 4. Mild asymmetric L5-S1 degenerative facet arthropathy. Electronically Signed: Parth Mercado MD at 11:29 EST Tel , Service support , CC: Maddy Monterroso NP Culinary Manager: Signed 18-Sep-2017 12 Lead Electrocardiogram Result: Comments: See Note; NOTES: [facility] Cardiovascular Services [address] [place] [address] 12 Lead EKG 09/16/17 1620 MR#: [id number] Acct: [id number] Name: DAYANARA MURRAY Hamida Rep #: [id number] : 1960 56 From: Rod Bender MD Attending Dr: Tracey Barnhart MD Status: DEP [facility] Ordering Dr: Tracey Barnhart MD Date: 09/16/17 Location: [facility] Sex: F C Admitted: Test Reason : PRE OP Blood Pressure : / mmHG Vent. Rate : 073 BPM Atrial Rate : 073 BPM P- R Int : 144 ms QRS Dur : 084 ms QT Int : 400 ms P-R-T Axes : 046 065 055 degrees QTc Int : 440 ms Normal sinus rhythm Norm al ECG Confirmed by RAOUL JOHNSON, ROD ([id number]), writer editor ALEJANDRA AGOSTO ([id number]) on 09/18/2017 1:36:25 PM Referred By: Tracey Barnhart Confirmed By:ROD BENDER MD 09/18/17 1336 Date Rod Bender MD CC: Maddy Monterroso NP; Tracey Barnhart MD Signed 17-Sep-2017 Operative Report Result: Comments: See Note; NOTES: [facility] Medical Records Department [address] [place] [address] Operative Report 09/17/17 1454 MR#: [id number] Acct: [id number] Name: MODESTODAYANARA Mei Rep #: [id number] : 1960 56 From: Tracey Barnhart MD PCP: Maddy Monterroso NP Status: REG [facility] Y Location: [address] Report of Operation Date of Procedure: 09/17/17 Pre-Operative Diagnosis: compl ex right adexexal mass Post-Operative Diagnosis: Pelvic mass, adhesions of colon to anterior abdominal wall and vaginal cuff Surgery/Procedure Performed:: Diagnostic laparascopy, cystoscopy Description of Surgical Findings:: pelvic mass in midline over bladder and vaginal cufff, ovary not well defined but under adehsions. Adhesions of colon to anterior abdominal wall supervisor wrapping room: Cardenas supervisor wrapping room: Zaki MS3 Type of Anesthesia:: General Anesthesiologist: [...] further intervention we will recommend consultation with INFORMATION SYSTEMS ARCHITECT oncology at a tertiary care center. The [...] Operative Report Result: Comments: See Note; NOTES: [facility] Medical Records Department [address] [place] [address] Operative Report 09/17/17 1310 MR#: [id number] Acct: [id number] Name: DAYANARA MURRAY Rep #: [id number] : 1960 56 From: Tracey Barnhart MD PCP: Maddy Monterroso NP Status: REG SDC Y Location: [place] [address] ADDENDUM by Tracey Barnhart MD on 09/17/17 [...] left tube not able to be identified supervisor wrapping room: Angela Bennett Type of Anesthesia:: General Anesthesiologist: [...] Operative Report Result: Comments: See Note; NOTES: [facility] Medical Records Department [address] [place] [address] Operative Report 09/17/17 1310 MR#: [id number] Acct: [id number] Name: DAYANARA MURRAY Rep #: [id number] : 1960 56 From: Tracey Barnhart MD PCP: Maddy Monterroso NP Status: REG [facility] Y Location: [place] [address] Report of Operation Date of Procedure: 09/17/17 [...] left tube not able to be identified supervisor wrapping room: Angela Baumann Type of Anesthesia:: General Anesthesiologist: [...] Discharge Instruction Result: Comments: See Note; NOTES: [facility] Medical Records Department [address] [place] [address] Instructions for Home/Discharge Instructions 09/17/17 1229 MR#: [id number] Acct: [id number] Name: DAYANARA MURRAY Rep #: [id number] : 1960 56 From: Tracey Barnhart MD [...] HCl 500 mg PO DAILY 09/15/17 Hydrocodone/Acetaminophen [[place] 5-325 Tablet] 1 each PO Q6H PRN PRN 6 Days #20 tablet 09/17/17 Ibuprofen [ Motrin] 600 mg PO Q6H PRN #30 tab 09/17/17 The following prescriptions were given: Hydrocodone/Acetaminophen [[place] 5-325 Tablet] 1 each PO Q6H PRN PRN 6 Days #20 tablet PRN Reason: Pain Ibuprofen [Mo luz] 600 mg PO Q6H PRN #30 tab PRN Reason: Pain Primary Care Physician: Maddy Monterroso [Primary Care Provider] - Please Follow Up With: Tracey Barnhart MD - [phone] When: 1-2 weeks or as needed in my office 09/17/17 1230 <Electronically signed by Tracey Barnhart MD> Date Tracey Barnhart MD CC: Maddy Monterroso NP 26-Aug-2017 Abdomen/Pelvis without Cont Result: Comments: See Note; NOTES: [facility] Imaging Services [address] [place] [address] Abdomen/Pelvis without Cont MR#: [id number] Acct: [id number] Name: DAYANARA MURRAY Rep # : [id number] : 1960 F 56 From: Alejandra Urban MD PCP: Maddy Monterroso NP Status: REG CLI Study: Abdomen/Pelvis without Cont Date of Exam: 08/26/17 Exam# [id number] Ordering Dr: Maddy Monterroso C T Abdomen And Pelvis W/O Contrast INDICATION: [...] supp ort , CC: Maddy Monterroso NP Culinary Manager: Signed 04-Aug-2016 Kidney and Bladder Result: Comments: See Note; NOTES: [facility] Imaging Services [address] [place] [address] Leliadacole 4d Kidney and Bladder MR#: [id number] Acct: [id number] Name: DAYANARA MURRAY Rep #: [id number] : 1960 F 55 From: Jamie Monique DO PCP: Maddy Monterroso Status: REG CLI Study: Kidney and Bladder Date of Exam: 08/04/16 Exam# [id number] Ordering Dr: Maddy Monterroso STUDY: RENAL ULTRASO [...] at 19:24 EST Tel , Service support [phone], CC: Maddy Monterroso Culinary Manager: Signed Family History Unknown Family Member Name Dates Details Father Comments: at 63 [place], lung trauma Status: Active Social History Name Dates Details Alcohol Use Comments: Occasional alcohol use Status: Active Caffeine Use Comments: 2 QD Status: Active Exercise History Comments: None Status: Active Living Situation Comments: , Status: Active 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 [place], [place] [address](583) BEDSIDE GLU 98 mg/dL (Normal) Range: 70-110 Comments: MANAGEMENT OF PATIENT CARE PER NURSING PROTOCOL 38-Nua-151390:18 Bedside Glucose Comments: [address] [place], [place] [address](336) BEDSIDE GLU 94 mg/dL (Normal) Range: 70-110 Comments: MANAGEMENT OF PATIENT CARE PER NURSING PROTOCOL 18-Gpf-101775:09 Hemoglobin A1c Comments: [address] [place], [address] HGB A1C 6.2 % (Normal) Range: 4.2-6.3 76-Qaw-475717:59 Basic Metabolic Profile (BMP) Comments: [address] [place], [address] GAP 8 (Normal) Range: 5-15 CO2 28.0 [...] Comments: Please note revised GLUCOSE reference range egcmsafbc55/02/2018. 01-Plv-082515:59 CBC-Complete Blood Cnt No Diff Comments: [facility] [address] [place], [place], [address] MPV 11.9 fL (Normal) Range: 6.2-12.0 PLT [...] 4.2-5.4 WBC 7.8 K/mm3 (Normal) Range: 4.4-11.0 21-Mci-811032:59 Thyroid Stim Hormone (TSH) Comments: [facility] [address] [place], [address] TSH 1.31 {uIU/mL} (Normal) Range: 0.358-3.74 79-Tkn-708563:59 Type AND Screen Comments: Surgery Date: 09/17/17Hx of Preganancy in last 3 Months NoEver experience any problems with transfusion(s)? NHx of Transfusion in last 3 Months NReason for Type AND Screen/Red Cells: SURGERYSURGI EJ PROCEDURE: [facility] [address] [place], [place], [address] Antibody Screen NEGATIVE (Normal) BLOOD TYPE GEL A POSITIVE (Normal) 33-Xpz-746408:52 HgA1C , Office (17427) HgA1C , Office 5.6 % (Normal) Range: 4.6 - 7.1 63-Awh-044477:52 Blood Glucose , Office (36622) Blood Glucose , Office 87 (Normal) 34-Gqw-740208:31 Urinalysis, Office (76990) UA - NITRITE Negative (Normal) URINE UROBILINGN OSMAN TIMED Normal mg/dL (Normal) UA - PROTEIN Negative mg/dL (Normal) UA - PH 5 (Abnormal) UA - BLOOD Negative (Normal) UA - SPECIFIC GRAVITY 1.020 (Normal) UA - KETONES Negative mg/dL (Normal) UA - BILIRUBIN Negative (Normal) UA - GLUCOSE Negative (Normal) 62-Fgl-93152:08 Basic Metabolic Profile (BMP) Comments: [facility] [address] [place], [place], [address] GAP 8 (Normal) Range: 5-15 CO2 31.0 [...] 7-18 GLU 96 mg/dL (Normal) Range: 70-110 44-Ske-87681:08 CBC-Complete Blood Cnt No Diff Comments: [facility] [address] [place], [address] MPV 12.3 fL (Abnormal) Range: 6.2-12.0 PLT [...] (Normal) Range: 4.4-11.0 :17 HgA1C , Office (32401) Comments: 5.6 HgA1C , Office 5.6 % (Normal) Range: 4.6 - 7.1 :17 Blood Glucose , Office (28269) Comments: 98 Blood Glucose , Office 98 (Normal) 4-Iks-232789:42 Microscopic Examination Comments: PATIENT NOT FASTINGPERFORMED BY: [employer] [facility] [id number] Bacteria Few (Normal) Mucus Threads Present (Normal) Cast Type Hyaline casts (Normal) Casts Present {/lpf} (Abnormal) Epithelial Cells (non renal) 0-10 {/hpf} (Normal) Range: 0 - 10 RBC 0-2 {/hpf} (Normal) Range: 0 - 2 WBC 0-5 {/hpf} (Normal) Range: 0 - 5 4-Grf-994945:42 MICROALBUMIN: CREATININE RATIO Comments: PATIENT NOT FASTINGPERFORMED BY: [employer] [facility] [id number] (51063) AND (20897) Microalb/Creat Ratio 4.1 {mg/g_creat} (Normal) Range: 0.0-30.0 Microalbumin, Urine 3.5 ug/mL (Normal) Creatinine, Urine 84.7 mg/dL (Normal) :42 URINALYSIS, W/ MICRO Comments: PATIENT NOT FASTINGPERFORMED BY: [employer] Lzwrty5147 [facility] [id number] Information: [id number] SRC:UC (35704) Microscopic Examination See below: (Normal) Comments: Microscopic was indicated and was performed. Nitrite, Urine Negative (Normal) Urobilinogen,Semi-Qn 0.2 mg/dL (Normal) Range: 0.2-1.0 Bilirubin Negative (Normal) Occult Blood Negative (Normal) Ketones Negative (Normal) Glucose Negative (Normal) Protein Negative (Normal) WBC Esterase 2+ (Abnormal) Appearance Clear (Normal) Urine-Color Yellow (Normal) pH 5.5 (Normal) Range: 5.0-7.5 Specific [place] 1.019 (Normal) Range: 1.005-1.030 :42 URINE WILMER CULTURE-IDENTIFICATN Comments: PATIENT NOT FASTINGPERFORMED BY: [employer] Bvfbmf2371 [facility] [id number] (82832) Result 1 MUG (Normal) Comments: Mixed urogenital flora1,000 Colonies/mL Urine Culture,Comprehensive Final report (Normal) :16 Urinalysis, Office (34653) UA - LEUKOCYTE ESTERASE Small (Normal) UA - NITRITE Negative (Normal) URINE UROBILINGN OSMAN TIMED Normal mg/dL (Normal) UA - PROTEIN Negative mg/dL (Normal) UA - PH 5 (Abnormal) UA - BLOOD Negative (Normal) UA - SPECIFIC GRAVITY 1.025 (Normal) UA - KETONES Negative mg/dL (Normal) UA - BILIRUBIN Negative (Normal) UA - GLUCOSE Negative (Normal) :20 Urinalysis, Office (75722) UA - LEUKOCYTE ESTERASE Negative (Normal) UA - NITRITE Negative (Normal) URINE UROBILINGN OSMAN TIMED Normal mg/dL (Normal) UA - PROTEIN Negative mg/dL (Normal) UA - PH 5 (Abnormal) UA - BLOOD Negative (Normal) UA - SPECIFIC GRAVITY 1.010 (Normal) UA - KETONES Negative mg/dL (Normal) UA - BILIRUBIN Negative (Normal) UA - GLUCOSE Negative (Normal) 00-Xvs-438247:09 Microscopic Examination Comments: PATIENT NOT FASTINGPERFORMED BY: [employer] Qgtcym4776 [facility]OMNov[facility] [id number] Bacteria Few (Normal) Mucus Threads Present (Normal) Epithelial Cells (non renal) 0-10 {/hpf} (Normal) Range: 0 - 10 RBC 3-10 {/hpf} (Abnormal) Range: 0 - 2 WBC 11-30 {/hpf} (Abnormal) Range: 0 - 5 25-Lrf-684249:09 URINE WILMER CULTURE-IDENTIFICATN Comments: PATIENT NOT FASTINGPERFORMED BY: [employer] Secure-NOKNovant Health Huntersville Medical Center [id number] (11210) Antimicrobial MIHEAD (Normal) Comments: S = Susceptible; [...] mL (Abnormal) Urine Final report Culture,Comprehensive (Abnormal) 56-Tid-281368:09 URINALYSIS (78713) Comments: PATIENT NOT FASTINGPERFORMED BY: nScaled Udrnhg3965 [facility] [id number] Information: SRC:UC Microscopic Examination See below: (Normal) Comments: Microscopic was indicated and was performed. Nitrite, Urine Negative (Normal) Urobilinogen,Semi-Qn 0.2 mg/dL (Normal) Range: 0.2-1.0 Bilirubin Negative (Normal) Occult Blood 1+ (Abnormal) Ketones Negative (Normal) Glucose Negative (Normal) Protein Negative (Normal) WBC Esterase 2+ (Abnormal) Appearance Clear (Normal) Urine-Color Yellow (Normal) pH 7.0 (Normal) Range: 5.0-7.5 Specific [place] 1.007 (Normal) Range: 1.005-1.030 80-Cdb-281822:29 Urinalysis, Office (90374) UA - LEUKOCYTE ESTERASE Small (Normal) UA - NITRITE Negative (Normal) URINE UROBILINGN OSMAN TIMED Normal mg/dL (Normal) UA - PROTEIN Negative mg/dL (Normal) UA - PH 7 (Normal) UA - BLOOD Non Hemolyzed Moderate (Normal) UA - SPECIFIC GRAVITY 1.015 (Normal) UA - KETONES Negative mg/dL (Normal) UA - BILIRUBIN Negative (Normal) UA - GLUCOSE Negative (Normal) 37-Rso-763941:06 URINE WILMER CULTURE-IDENTIFICATN Comments: PATIENT NOT FASTINGPERFORMED BY: [facility] Mbtnae7334 [facility] [id number] Information: SRC:UC (15912) Result 1 MUG (Normal) Comments: Mixed urogenital flora1,000 Colonies/mL Urine Culture,Comprehensive Final report (Normal) 28-Vjo-028790:21 Urinalysis, Office (73993) UA - LEUKOCYTE ESTERASE Trace (Normal) UA - NITRITE Negative (Normal) URINE UROBILINGN OSMAN TIMED Normal mg/dL (Normal) UA - PROTEIN Negative mg/dL (Normal) UA - PH 7 (Normal) UA - BLOOD Negative (Normal) UA - SPECIFIC GRAVITY 1.020 (Normal) UA - KETONES Negative mg/dL (Normal) UA - BILIRUBIN Negative (Normal) UA - GLUCOSE Negative (Normal) 2-Cwp-731882:05 Blood Glucose , Office (10120) Comments: 76 Blood Glucose , Office 76 (Normal) 1-Nev-818176:44 Urinalysis, Office (37352) UA - LEUKOCYTE ESTERASE Small (Normal) UA - NITRITE Negative (Normal) URINE UROBILINGN OSMAN TIMED Normal mg/dL (Normal) UA - PROTEIN Negative mg/dL (Normal) UA - PH 5 (Abnormal) UA - BLOOD Negative (Normal) UA - SPECIFIC GRAVITY 1.030 (Abnormal) UA - KETONES Negative mg/dL (Normal) UA - BILIRUBIN Negative (Normal) UA - GLUCOSE Negative (Normal) 44-Mrj-949002:50 Blood Glucose , Office (96821) Blood Glucose , Office 102 (Normal) 97-Wae-303904:32 Hemoglobin A1c Comments: Test performed at:[facility] [address] [place] [address] HGB A1C 7.1 % (Abnormal) Range: 4.2-6.3 88-Vxw-815035:58 Blood Glucose , Office (13281) Blood Glucose , Office 99 (Normal) 83-Osk-039232:49 ANTINUCLEAR ANTIBODIES DIRECT Comments: Test performed at:[facility] [address] [place], [place] [address] TING-DIRECT Negative (Normal) Comments: Performed at: [facility] [address] [id number] Director: Rasheed Ziegler PhD, Phone: [phone] 56-Glb-936207:49 Erythrocyte Sed Rate Comments: Test performed at:[facility] [address] [place] [address] SED RATE 10 mm/h (Normal) Range: 0-30 43-Qsh-675065:49 Rheumatoid Factor Comments: Test performed at:[facility] [address] [place] [address] RHEUMATOID FAC < 10.0 {IU/mL} (Normal) 07-Fdg-466089:49 Sjogren's Antibodies A/B Comments: Test performed at:[facility] [address] [place] [address] Anti-SS-B < 0.2 {AI} (Normal) Range: 0.0-0.9 Anti-SS-A < 0.2 {AI} (Normal) Range: 0.0-0.9 :27 Pathology Report Comments: PERFORMED BY: [employer]agster[employer]T [facility] Cyto Xeiao93959 [facility] [id number] BY: [facility] Dermatopathology Eceulhx[address] [id number] Information: [id number] See MATER Comments: Material submitted: .SHAVE BIOPSY R Sravani provided ICD-9:701.9 ; Unspecified hypertrophic and atrophic condition of skinClinical history: Note (Normal) .ETIOLOGY UNKNOWN SKIN TAGS FOR MARGINSDiagnosis:IRRITATED VERRUCA VULGARIS.TMZ10/05/2014 Electronically signed: .Priscilla Philip MD, DermatopathologistGross description: .RECEIVED IN FORMALIN LABELED DAYANARA MODESTO WITH NO DESIGNATION ONTHE CONTAINER AND DESIGNATED RIGHT ARM ON THE REQUISITION IS ATAN/YELLOW FRAGMENT OF SKIN MEASURING 0.3 X 0.3 X 0.1 CM. THEMARGIN IS MARKED WITH GREEN INK. IT IS BISECTED AND SUBMITTEDENTIRELY IN A SINGLE CASSETTE.LMS/JASPathologist provided ICD-9:078.10CPT .979478 47-Umc-022363:05 HgA1C , Office (72668) Comments: 7.0 HgA1C , Office 7.0 % (Normal) Range: 4.6 - 7.1 18-Icw-234811:05 Blood Glucose , Office (29760) Comments: 93 Blood Glucose , Office 93 (Normal) 98-Dik-862125:25 HgA1C , Office (72893) HgA1C , Office 6.8 % (Normal) Range: 4.6 - 7.1 :19 HgA1C , Office (13818) HgA1C , Office 8.0 % (Abnormal) Range: 4.6 - 7.1 4-Dgv-393837:19 Blood Glucose , Office (89281) Blood Glucose , Office 153 (Normal) Comments: non-fasting :58 HgA1C , Office (71910) HgA1C , Office 7.2 % (Abnormal) Range: 4.6 - 7.1 33-Lhu-78959:34 URINE WILMER CULTURE-OSMAN COL Comments: PATIENT NOT FASTINGPERFORMED BY: TweetminsterJoseph [place] [id number] [facility] [id number] Information: SRC:UR [id number] COUNT (36416) Result 1 MUG (Normal) Comments: Mixed urogenital flora25,000-50,000 colony forming units per mL Urine Final report (Normal) Culture,Comprehensive 22-Hnl-135947:40 Urinalysis, Office (78453) UA - LEUKOCYTE ESTERASE Negative (Normal) UA - NITRITE Negative (Normal) URINE UROBILINGN OSMAN TIMED Normal mg/dL (Normal) UA - PROTEIN Negative mg/dL (Normal) UA - BLOOD Negative (Normal) UA - SPECIFIC GRAVITY 1.025 (Normal) UA - PH 7 (Normal) UA - KETONES Negative mg/dL (Normal) UA - BILIRUBIN Negative (Normal) UA - GLUCOSE Negative (Normal) 36-Iaf-349427:21 Rapid Strep Test, Office (19178) Rapid Strep Test, Office Positive (Normal) 92-Ukt-726932:21 Rapid Flu (05613 x 2) Influenza A Ag negative a and b (Normal) 69-Dfi-420568:06 URINE WILMER CULTURE-OSMAN COL Comments: PATIENT NOT FASTINGPERFORMED BY: TweetminsterPine Rest [facility]6370 [facility] [id number] Information: SRC:UR [id number] COUNT (66429) Antimicrobial MIHEAD (Normal) Comments: S = Susceptible; [...] mL (Normal) Urine Final report Culture,Comprehensive (Normal) 00-Rpz-975536:46 Urinalysis, Office (30275) UA - BILIRUBIN Negative (Normal) UA - BLOOD Negative (Normal) UA - GLUCOSE Negative (Normal) UA - KETONES Moderate mg/dL (Normal) Comments: trace UA - LEUKOCYTE ESTERASE Large (Normal) UA - NITRITE Negative (Normal) UA - PH 7.5 (Normal) UA - PROTEIN Negative mg/dL (Normal) UA - SPECIFIC GRAVITY 1.025 (Normal) URINE UROBILINGN OSMAN TIMED Normal mg/dL (Normal) Comments: 1.0E.U/dL 5-Zgf-413435:52 CBCD,SMEAR DIFF RED CELL MORPH SeeNote {NORMAL} [...] 4.2-5.4 WBC 8.9 K/mm3 (Normal) Range: 4.4-11.0 7-Dyr-269094:52 LIVER D BILI 0.11 mg/dL (Normal) Range: 0.00-0.30 ALT 45 U/L (Normal) Range: 12-78 T BILI 0.60 mg/dL (Normal) Range: 0.00-1.00 ALK P 67 U/L (Normal) Range: 50-136 AST 37 U/L (Normal) Range: 15-37 ALB 4.2 g/dL (Normal) Range: 3.4-5.0 T PROT 7.7 g/dL (Normal) Range: 6.4-8.2 0-Wmi-973967:14 LIVER/SPLEEN SCAN WITH FLOW Radiology Report See [...] is normal. Dictated on 06/13/11 0800 by Holly JOHNSON,RasheedTranscribed on 06/13/111732 by ITS IMPORTSign by Rasheed Barrera MD on 06/13/111733 Sign by: Rasheed Barrera MD :56 Blood Glucose , Office (46931) Blood Glucose , Office 135 (Normal) :56 HgA1C , Office (78183) HgA1C , Office 6.0 % (Normal) Range: 4.6 - 7.1 :14 Rapid Strep Test, Office (10512) Rapid Strep Test, Negative (Normal) Office 35-Ldo-98920:00 CULTURE, THROAT See Note (Normal) Comments: Normal throat alexsandra isolated. No beta-hemolyticstreptococcus isolated. :24 VIT D,25 99622 19.7 ng/mL (Abnormal) Range: 32.0-100.0 Comments: Recent studies consider the lower limit of 32.0 ng/mL to carmen threshold for optimal health.Inderjit COLEMAN. J Nutr. 2004;135(2):317-22.Performed at: [facility] [place] [address]Lab Director: Mariel Deleon MD, Phone: [phone] 3-Zph-957799:03 HGB A1C 5.4 % (Normal) Range: 4.0-6.3 Comments: The methodology of Hgb A1C has changed to [place] significant changes in patient results are expected. The reference range remains the same. :01 TSH 1.49 {uIU/mL} (Normal) Range: 0.358-3.74 :07 Blood Glucose , Office (75899) Blood Glucose , Office 108 (Normal) :42 HgA1C , Office (98564) HgA1C , Office 5.8 % (Normal) Range: 4.6 - 7.1 :42 Blood Glucose , Office (34257) Blood Glucose , Office 99 (Normal) :22 HgA1C , Office (98807) HgA1C , Office 5.8 % (Normal) Range: 4.6 - 7.1 :22 Blood Glucose , Office (43828) Blood Glucose , Office 93 (Normal) :02 [...] T PROT 7.4 g/dL (Normal) Range: 6.4-8.2 1-Ygj-094778:42 URINALYSIS W/O MICRO (39068) UA - APPEARANCE clear (Normal) UA - [...] (Normal) UA - URINE SEDIMENT neg (Normal) 28-Php-773359:30 CH/GC DNA 11767 CHLAM DNA 94403 SeeNote (Normal) Comments: Result: Negative GC DNA PROBE SeeNote (Normal) Comments: Result: Negative No swab in specimen when received.Test valid for male urethral and female endocervicalspecimens only.Performed At: [facility], [place] [id number] : AVEL PREP See Note {PER_HPF} Comments: FUNGAL ELEMENTS NONE SEEN 30 (Normal) : WET PREP See Note (Normal) Comments: MOTILE TR[facility] 30 06-Cta-309120:39 Urinalysis, Office (57817) Comments: ABN signed PE UA - BILIRUBIN Negative (Normal) UA - BLOOD Negative (Normal) UA - GLUCOSE Negative (Normal) UA - KETONES Negative mg/dL (Normal) UA - LEUKOCYTE ESTERASE Negative (Normal) UA - NITRITE Negative (Normal) UA - PH 6.0 (Normal) UA - PROTEIN Negative mg/dL (Normal) UA - SPECIFIC GRAVITY 1.005 (Normal) URINE UROBILINGN OSMAN TIMED Normal mg/dL (Normal) 52-Fux-919765:35 CBCD,SMEAR DIFF CELLS COUNTED 100 (Normal) EOS [...] See Note (Normal) Comments: #1- STUDIES AT [employer] HAVE CONFIRMED THE OBSERVATIONS OF OTHERS WHO HAVE DEMONSTRATED THAT PREVOTELLA, PORPHYROMONAS AND BACTEROIDES SPECIES OTHER THAN B.FRAGILIS GROUP ARE ROUTINELY ROBNI CEPTIBLE TO CEFOXITIN, CHLORAMPHENICOL, AND METRONIDAZOLE AND ARE USUALLY RESISTANT TO PENICILLIN. TESTING PERFORMED AT [facility]. ORIGINAL RE PORT ON FILE IN LAB CONTAINS ADDITIONAL TEST SITE INFORMATION. ANAEROBIC CULT TO REF LAB 2 ANAEROBIC ORGANISMS ISOLATED AND IDENTIFIED. ORGANISM 1: PREVOTELLA BIVIA-ORGANISM 2: FINEGOLDIA JOSÉ :40 /GC [id number] CHLAM DNA SeeNote (Normal) Comments: Result: Negative GC DNA PROBE SeeNote (Normal) Comments: Result: Negative Performed At: [facility], [place] [id number] :40 CULTURE, URINE URINE CULTURE See Note [...] TRICH RAREWBC 2-4 0 :04 Urinalysis, Office (70168) Comments: ABn signed UA - BILIRUBIN Negative (Normal) UA - BLOOD Negative (Normal) UA - GLUCOSE Negative (Normal) UA - KETONES Negative mg/dL (Normal) UA - LEUKOCYTE ESTERASE Small (Normal) UA - NITRITE Negative (Normal) UA - PH 5.0 (Normal) UA - PROTEIN Negative mg/dL (Normal) UA - SPECIFIC GRAVITY 1.010 (Normal) URINE UROBILINGN OSMAN TIMED 2 mg/dL (Normal) 5-Yks-999708:10 CULTURE, URINE URINE CULTURE See Note {CFU/mL} (Normal) Comments: COLONY COUNT >100,000 ORGANISM 1: STREPTOCOCCUS AGALACTIAE (B) STREPTOCOCCUS AGALACTIAE (B): REACTION CEFAZOLIN $ <=8 S CLI NDAMYCIN, NON-EC $$ <=0.25 S ERYTHROMYCIN NON-EC $$ <=0.25 S LEVOFLOXACIN $$ <=1 S NITROFURANTOIN $ <= 32 S PENICILLIN G (STREP) $$ <=0.03 S TETRACYCLINE NON-EC $$ >=16 R VANCOMYCIN NON-EC $$ <=0.5 S 8-Lvk-182112:37 Urinalysis, Office (16830) UA - BILIRUBIN Negative (Normal) UA - [...] 1.49 INDETERMINANT > OR = 1.50 SUGGEST [place] :42 HYSTERECT P-HYST (Normal) Comments: OPERATION Hysterectomy, [...] TYPE PT A POSITIVE (Normal) Comments: COMMENTS: [facility] OR 12/31/06:00 CBCD Comments: COMMENTS: RESULTS TO DR. MONTOYA AND DR. [facility], [facility] OR 12/31/06 BAND 5 % (Normal) Range: [...] MONTOYA AND DR. [facility], [facility] OR 12/31/06 A/G 1.1 {RATIO} (Normal) Range: [...] (Normal) Range: 6.4-8.2 :00 LIPID Comments: COMMENTS: [facility] OR 12/31/06 CHOL 155 mg/dL (Normal) Comments: [...] (Normal) Range: 5-40 :00 LIVER Comments: COMMENTS: [facility] OR 12/31/06 ALB 3.5 g/dL (Normal) Range: 3.4-5.0 ALK P 54 U/L (Normal) Range: 50-136 ALT 32 [iU]/L (Normal) Range: 30-65 AST 20 U/L (Normal) Range: 15-37 D BILI 0.07 mg/dL (Normal) Range: 0.00-0.30 T BILI 0.23 mg/dL (Normal) Range: 0.00-1.00 T PROT 6.8 g/dL (Normal) Range: 6.4-8.2 74-Rpn-969103:00 ,SERUM Comments: COMMENTS: RESULTS TO DR. MONTOYA AND DR. [facility], [facility] OR 12/31/06 HCGSQUAL SeeNote m[iU]/mL (Normal) Comments: Result: NEGATIVE : PRO TIME Comments: COMMENTS: RESULTS TO DR. MONTOYA AND DR. [facility], [facility] OR 12/31/06 INR 1.0 (Normal) PROTIME 12.1 s (Normal) Range: 10.6-13.2 : PTT 23.5 s (Abnormal) Comments: COMMENTS: RESULTS TO DR. MONTOYA AND DR. [facility], [facility] OR 12/31/06 Range: 24.6-36.6 54-Yeq-151701:25 ANAEROBIC CULT See Note (Normal) Comments: AMOUNT GROWTH GROWTH ORGANISM 1: PREVOTELLA BIVIA- 84-Tmg-931938:25 CH/GC DNA 71354 CHLAM DNA 48335 SeeNote (Normal) Comments: Result: Negative GC DNA PROBE SeeNote (Normal) Comments: Result: Negative Test valid for male urethral and female endocervicalspecimens only.Performed At: [facility], [place] [id number] 11-Fdj-633258:25 GENT CULT COMP GENT CULT COMP See [...] COCCI IN CHAINS NO GRAM NEGATIVE DIPLOCOCCI 05-Oaf-958912:25 AVEL PREP See Note {PER_HPF} Comments: FUNGAL ELEMENTS NONE SEEN (Normal) 64-Qeu-667533:25 WET PREP See Note (Normal) Comments: MOTILE TRICH 1+WBC 1 86-Pao-013605:00 CULTURE, URINE URINE CULTURE See Note {CFU/mL} (Normal) Comments: COLONY COUNT >100,000 ORGANISM 1: STREPTOCOCCUS AGALACTIAE (B) STREPTOCOCCUS AGALACTIAE (B): REACTION CEFAZOLIN $ <=8 S CLI NDAMYCIN, NON-EC $$ <=0.25 S ERYTHROMYCIN NON-EC $$ <=0.25 S LEVOFLOXACIN $$ <=1 S NITROFURANTOIN $ <= 32 S PENICILLIN G (STREP) $$ <=0.03 S TETRACYCLINE NON-EC $$ >=16 R VANCOMYCIN NON-EC $$ <=0.5 S 44-Tau-787778:57 Urinalysis, Office (81572) Comments: ABN signed UA - BILIRUBIN Negative (Normal) UA - BLOOD Hemolyzed Trace (Normal) UA - GLUCOSE Negative (Normal) UA - KETONES Negative mg/dL (Normal) UA - LEUKOCYTE ESTERASE Moderate (Normal) UA - NITRITE Negative (Normal) UA - PH 6.5 (Normal) UA - PROTEIN Negative mg/dL (Normal) UA - SPECIFIC GRAVITY 1.010 (Normal) URINE UROBILINGN OSMAN TIMED Normal mg/dL (Normal) 69-Ypl-88584:00 ASPIRATION P-ASPS (Normal) Comments: OPERATION FNA right thyroid PRE-OPERATIVE DIAGNOSIS Right thyroid nodule TISSUE SUBMITTED Right thyroid FNA slides x 9 DIAGNOSIS (CYTOLOGY) Right thyroid nodule, FNA (smears): Negative for malignan t cells. See Cytology Study and Comment. AUGUSTINE:quang 12/17/06 COMMENT The differential diagnosis includes chronic [...] mg/dL (Normal) Range: 34-200 Comments: Performed At: [address] [id number] :38 IRON+TIBC IRON SATURATION 4.0 % (Abnormal) Range: 15.0-55.0 IRON, SERUM 19 ug/dL (Abnormal) Range: 35-150 TIBC 481 ug/dL (Abnormal) Range: 250-450 :38 LDH 205 U/L (Abnormal) Range: 100-190 :38 RETIC 1.19 % (Normal) Range: 0.5-1.5 :55 GLU GTT-2 HOUR 110 mg/dL (Normal) Comments: 2HR GTT GLU 2 HR GLU GTT-2 HOUR from 0516:[id number]. Range: 70-120 :55 GLU GTT-1 HOUR 162 mg/dL (Normal) Comments: 2HR GTT GLU 1 HR GLU GTT-1 HOUR from 0516:[id number]. Range: 120-170 :28 GLU GTT-30 min. 175 mg/dL (Abnormal) Comments: 2HR GTT GLU 1/2 HR GLU GTT-30 min. from 0516:[id number]. Range: 110-170 :46 CBCD,SMEAR DIFF ANISO 1+ [...] Comments: 2HR GTT FASTING GLU GTT-FASTING from 0516:[id number]. Range: 70-110 Comments: GLUCOSE TOLERANCE TEST Reference Interval Non- Adults Fasting 70 - 110 30 minutes 110 - 170 1 hour 120 - 170 2 hour 70 - 120 3 hour 70 - 110 4 hour 70 - 110 5 hour 70 - 110 05-Sal-680866:46 LIPID CHOL 216 mg/dL (Abnormal) Comments: <200 [...] mg/dL VLDL 17 mg/dL (Normal) Range: 5-40 06-Qnh-877610:46 MICROALBUMIN,UR 9.7 mg/L (Normal) :46 ROUTINE UA [...] 0.2 EU/dl (Normal) Range: 0.2 - 1.0 :46 TSH 1.50 {uIU/mL} (Normal) Range: 0.34-4.82 :05 PELVIC (NON-PREG) (HP) Radiology Report See Note (Normal) Comments: Exam Number: [id number] THYROID ULTRASOUND HISTORYThyroid nodule. High resolution real [...] for review. Reported By: MELI YE M.D. 07-Xtb-66016:05 THYROID () Radiology Report See Note (Normal) Comments: Exam Number: [id number] THYROID ULTRASOUND HISTORYThyroid nodule. High resolution real [...] for review. Reported By: MELI YE M.D. 97-Oot-879375:15 Urinalysis, Office (71580) Comments: done-jjp UA - BILIRUBIN Negative (Normal) UA - BLOOD Negative (Normal) UA - GLUCOSE Negative (Normal) UA - KETONES Negative mg/dL (Normal) UA - LEUKOCYTE ESTERASE Negative (Normal) UA - NITRITE Negative (Normal) UA - PH 5.0 (Normal) UA - PROTEIN Negative mg/dL (Normal) UA - SPECIFIC GRAVITY 1.000 (Normal) URINE UROBILINGN OSMAN TIMED Normal mg/dL (Normal) 27-Xbl-389657:45 CULTURE, URINE URINE CULTURE See Note {CFU/mL} [...] : FOLLOW UP IN 4 WEEKS with [facility] to go over BS diary, diet etc Indication: Impaired fasting glucose Abnormal glucose tolerance test : FOLLOW UP [facility] meter [facility], begin metformin, etc [...] Indication: Urinary frequency Planned Observations LIPID PANEL (38815)Indication: Hypertension On: 13-Apr-20188:26 Request CBC & PLATELETS (AUTO) (40039)Indication: Hypertension On: 13-Apr-20188:26 Request CALCIFEDIOL (28795)Indication: Hypertension On: 13-Apr-20188:26 Request METABOLIC PANEL, COMPREHENSIVE (26495)Indication: Hypertension On: 13-Apr-20188:25 Request HGB A1C (46419)Indication: Diabetes mellitus, controlled On: 20-Cpq-652125:33 Request CBC, Platelets & Auto Diff (65297)Indication: Hypertension On: 18-Jan-2018 Request Lipid Panel (90190)Indication: Hypertension On: 18-Jan-2018 Request Metabolic Panel, Comprehensive (01586)Indication: Hypertension On: 18-Jan-2018 Request Metabolic Panel, Comprehensive (24166)Indication: Diabetes mellitus, controlled On: :28 Request HGB A1C (90192)Indication: Diabetes mellitus, controlled On: :28 Request TSH (67139)Indication: Diabetes mellitus, controlled On: 63-Lxx-290681:50 Request Comments: mar 2017 URINALYSIS W MICROSCOPY (41782)Indication: Flank pain On: :09 Request URINE WILMER CULTURE-OSMAN COL COUNT (28570)Indication: Flank pain On: 11-Sep-20169:08 Request CALCIFEDIOL (59273)Indication: DEFICIENCY, VITAMIN D NOS On: :39 Request Comments: to be done December 2016 LIPID PANEL (97387)Indication: Hypercholesteremia On: :38 Request Comments: print to be done prior to next visit URINALYSIS, W/ MICRO (60839)Indication: Kidney stone on right side On: :36 Request HGB A1C (30192)Indication: Hypercholesteremia On: :49 Request Lipid Panel (32564)Indication: Diabetes mellitus, controlled On: :49 Request Metabolic Panel, Comprehensive (01266)Indication: Diabetes mellitus, controlled On: :48 Request TSH (87017)Indication: Diabetes mellitus, controlled On: :48 Request CBC, Platelets & Auto Diff (67095)Indication: Diabetes mellitus, controlled On: :48 Request HGB A1C (04026)Indication: Uncontrolled diabetes mellitus type 2 without complications On: :46 Request CALCIFEDIOL (72904)Indication: Uncontrolled diabetes mellitus type 2 without complications On: :46 Request TSH (57344)Indication: Uncontrolled diabetes mellitus type 2 without complications On: :46 Request CBC, Platelets & Auto Diff (69951)Indication: Uncontrolled diabetes mellitus type 2 without complications On: :46 Request Lipid Panel (39013)Indication: Uncontrolled diabetes mellitus type 2 without complications On: :46 Request Metabolic Panel, Comprehensive (97913)Indication: Uncontrolled diabetes mellitus type 2 without complications On: :46 Request Metabolic Panel, Comprehensive (37178)Indication: Kidney stone on right side On: :44 Request PT (PROTHROMBIN TIME) (38206)Indication: Preop examination On: :20 Request CBC, Platelets & Auto Diff (71564)Indication: Preop examination On: 63-Rwl-672834:20 Request CBC, Platelets & Auto Diff (85558)Indication: Preop examination On: :19 Request Metabolic Panel, Comprehensive (38353)Indication: Preop examination On: :19 Request Metabolic Panel, Basic (12846)Indication: Flank pain On: 34-Ukx-914044:43 Request Hemoglobin Glyclated (HGB A1C) (12337)Indication: Uncontrolled diabetes mellitus type 2 without complications On: :04 Request CREATININE CLEARANCE (76826)Indication: Abdominal pain, acute, right upper quadrant On: 07-Zjd-946035:54 Request Comments: STAT Hemoglobin Glyclated (HGB A1C) (24395)Indication: Uncontrolled diabetes mellitus type 2 without complications On: 98-Zme-027107:25 Request HEPATIC FUNCTION PANEL (35381)Indication: Hypercholesteremia On: 63-Irm-445626:37 Request Comments: repeat November fasting TSH (THYROID STIMULATING HORMONE) (83431)Indication: Uncontrolled diabetes mellitus type 2 without complications On: 66-Kmf-882172:47 Request CALCIFIDIOL (23425) VIT D 25Indication: Uncontrolled diabetes mellitus type 2 without complications On: 89-Dyu-583602:47 Request MICROALBUMIN: CREATININE RATIO (48183) AND (29364)Indication: Uncontrolled diabetes mellitus type 2 without complications On: 44-Xot-206568:47 Request METABOLIC PANEL, COMPREHENSIVE (05993)Indication: Uncontrolled diabetes mellitus type 2 without complications On: 29-Pkj-851501:47 Request LIPID PANEL (36476)Indication: Uncontrolled diabetes mellitus type 2 without complications On: :47 Request Metabolic Panel, Comprehensive (84096)Indication: Uncontrolled diabetes mellitus type 2 without complications On: 33-Uys-095659:44 Request Lipid Panel (37091)Indication: Uncontrolled diabetes mellitus type 2 without complications On: 60-Rks-621415:44 Request Blood Glucose , Office (22530)Indication: Uncontrolled diabetes mellitus type 2 without complications On: 51-Qqq-784918:25 Request BLD CNT, MANUAL CELL COUNT, EACH (21297)Indication: Thyroid nodule On: 4-Ivs-048827:56 Request URINALYSIS, AUTOMATED W/ MICRO (56850)Indication: Thyroid nodule On: 1-Mhf-060706:56 Request 24HR URINE CREATININE (49728)Indication: Thyroid nodule On: 4-Pte-400363:56 Request MICROALBUMIN, TIMED 24 UR 698841 (27793)Indication: Thyroid nodule On: 7-Krs-302460:56 Request CALCIFEDIOL (04036)Indication: Thyroid nodule On: 4-Phj-023276:55 Request Metabolic Panel, Comprehensive (08574)Indication: Uncontrolled diabetes mellitus type 2 without complications On: 0-Ovg-459602:55 Request TSH (THYROID STIMULATING HORMONE) (09591)Indication: Thyroid nodule On: 5-Ptd-984664:54 Request LIPID PANEL (68399)Indication: GERD (gastroesophageal reflux disease) On: 0-Ncv-219458:52 Request CBC WITH MANUAL DIFF (19044)Indication: Hypertension On: 64-Rzp-852439:00 Request Vitamin D Hydroxy (99913)Indication: Depression On: 84-Dzk-084329:59 Request TSH (01788)Indication: Depression On: 58-Mcw-795977:59 Request URINALYSIS, W/ MICRO (25648)Indication: Hypertension On: 08-Yjy-385777:59 Request MICROALBUMIN: CREATININE RATIO (87215) AND (16963)Indication: Hypertension On: :59 Request METABOLIC PANEL, COMPREHENSIVE (84466)Indication: Hypertension On: :59 Request LIPID PANEL (33485)Indication: Hypertension On: :59 Request CBC, Platelets & Auto Diff (05773)Indication: Fatigue On: :29 Request Metabolic Panel, Basic (96381)Indication: Fatigue On: :29 Request WILMER CULTURE-OTHER (67428)Indication: Pharyngitis, acute On: :25 Request Influenza A&B Viral Culture (09030)Indication: Pharyngitis, acute On: :21 Request T4, FREE (THYROXINE) (06590)Indication: Thyroid nodule On: : Request FREE TRIDOTHYRONINE (T3) (24829)Indication: Thyroid nodule On: 02-Ywe-869098:00 Request TSH (THYROID STIMULATING HORMONE) (39688)Indication: Thyroid nodule On: 26-Jlr-621977:00 Request HEPATIC FUNCTION PANEL (69394)Indication: Hepatomegaly On: 9-Zji-374049:13 Request CBC with manual diff (20414)Indication: Hepatomegaly On: 0-Ech-937357:13 Request HEPATIC FUNCTION PANEL (10237)Indication: Splenomegaly On: 2-Rdh-633599:57 Request CBC with manual diff (31620)Indication: Splenomegaly On: 4-Yea-929385:57 Request CCP ANTIBODY (67867)Indication: Pain in unspecified joint On: :10 Request SED RATE ERYTHROCYTE (25092)Indication: Pain in unspecified joint On: :10 Request C-REACTIVE PROTEIN (72782)Indication: Pain in unspecified joint On: 17-Jif-10633:10 Request RHEUMATOID FACTOR-QUANT (03000)Indication: Pain in unspecified joint On: :10 Request TING (ANTINUCLEAR ANTIBODY) (36712)Indication: Pain in unspecified joint On: :10 Request CBC WITH MANUAL DIFF (41796)Indication: Pain in unspecified joint On: :10 Request METABOLIC PANEL, COMPREHENSIVE (29253)Indication: Pain in unspecified joint On: :10 Request WILMER CULTURE-OTHER (62943)Indication: Pharyngitis, acute On: 79-Dnx-619166:14 Request Hemoglobin Glyclated (HGB A1C) (94707)Indication: Abnormal glucose tolerance test On: :52 Request CALCIFEDIOL (68750)Indication: Abnormal glucose tolerance test On: :15 Request TSH (79132)Indication: Fatty liver On: :11 Request LIPID PANEL (04931)Indication: Hypercholesteremia On: 47-Acb-725513:54 Request CBC WITH MANUAL DIFF (97912)Indication: Hypertension On: 89-Xuc-727822:54 Request METABOLIC PANEL, COMPREHENSIVE (43062)Indication: Elevated LFTs On: 71-Oyc-777703:54 Request MICROALBUMIN: CREATININE RATIO (54275) AND (16050)Indication: Abnormal glucose tolerance test On: 05-Jvq-835771:54 Request METABOLIC PANEL, COMPREHENSIVE (61621)Indication: Hypertension On: 89-Eof-528783:56 Request LIPID PANEL (28093)Indication: Hypercholesteremia On: 44-Cgp-989756:56 Request SED RATE ERYTHROCYTE (36132)Indication: Pain in unspecified hip On: 46-Tke-443547:55 Request C-REACTIVE PROTEIN (99093)Indication: Pain in unspecified hip On: 34-Tec-393977:55 Request RHEUMATOID FACTOR-QUANT (89661)Indication: Pain in unspecified hip On: 02-Ovs-576963:55 Request TING (ANTINUCLEAR ANTIBODY) (87434)Indication: Pain in unspecified hip On: 32-Aja-019252:55 Request MICROALBUMIN: CREATININE RATIO (38598) AND (15871)Indication: Other specified abnormal findings of blood chemistry On: 02-Uff-834111:54 Request GLUCOSE TOLERANCE TEST (GTT) 2 hour (81287)Indication: Other specified abnormal findings of blood chemistry On: 15-Veg-897427:54 Request LIPID PANEL (36406)Indication: Hypercholesteremia On: 14-Vmo-910881:17 Request METABOLIC PANEL, COMPREHENSIVE (32698)Indication: Elevated LFTs On: 97-Hpp-971654:17 Request METABOLIC PANEL, COMPREHENSIVE (30566)Indication: Elevated LFTs On: 78-Arz-412238:15 Request HEPATITIS A, B & C PANELSIndication: Elevated LFTs On: 23-Xok-454972:15 Request LIPID PANEL (07545)Indication: Low HDL (under 40) On: 6-Hks-784282:52 Request HEPATIC FUNCTION PANEL (57738)Indication: Elevated LFTs On: 4-Ase-023001:52 Request MICROALBUMIN: CREATININE RATIO (61099) AND (07434)Indication: Hypertension On: :23 Request CBC WITH MANUAL DIFF (39274)Indication: Chronic blood loss anemia On: 70-Kep-437809:23 Request METABOLIC PANEL, COMPREHENSIVE (29888)Indication: Hypopotassemia On: :22 Request HEPATIC FUNCTION PANEL (59601)Indication: Hypercholesteremia On: :22 Request LIPID PANEL (85735)Indication: Hypercholesteremia On: 78-Opr-936283:22 Request LIPID PANEL (89874)Indication: Hypercholesteremia On: :27 Request MICROALBUMIN: CREATININE RATIO (04392) AND (92662)Indication: Hypertension On: 7-Jbx-667550:27 Request URINALYSIS W/O MICRO (10176)Indication: Hypertension On: 2-Fph-953387:27 Request TSH (69621)Indication: Thyroid nodule On: 2-Pmy-071747:26 Request METABOLIC PANEL, COMPREHENSIVE (98475)Indication: Hypertension On: 0-Hjh-096136:26 Request CBC WITH MANUAL DIFF (57913)Indication: Hypertension On: 8-Aqi-672799:26 Request LIPID PANEL (37203)Indication: Low HDL (under 40) On: 9-Igx-373825:42 Request CBC WITH MANUAL DIFF (42437)Indication: Chronic blood loss anemia On: 3-Auq-213608:42 Request METABOLIC PANEL, COMPREHENSIVE (71603)Indication: Hypertension On: 0-Mnj-997071:42 Request METABOLIC PANEL, COMPREHENSIVE (23027)Indication: Hypertension On: 82-Wqg-752597:56 Request LIPID PANEL (89138)Indication: Low HDL (under 40) On: 01-Ege-805105:56 Request CBC WITH MANUAL DIFF (34990)Indication: Chronic blood loss anemia On: 53-Fyb-170320:55 Request WET MOUNT WITH AVEL (00295)Indication: Vaginal discharge On: 78-Ujm-698305:09 Request CULTURE, GONOCOCCUS (14259)Indication: Vaginal discharge On: 92-Uhc-384751:09 Request CULTURE CHLAMYDIA (49803)Indication: Vaginal discharge On: 50-Zqp-932003:09 Request Thin prep Pap (85785)Indication: Well woman exam On: 38-Ygt-588288:08 Request WET MOUNT (91523)Indication: Vaginal discharge On: :37 Request Comments: with avel CULTURE, GONOCOCCUS (28353)Indication: Vaginal discharge On: :37 Request CULTURE CHLAMYDIA (80871)Indication: Vaginal discharge On: :37 Request BACT CULTURE ANY-ANAEROBIC (83080)Indication: Vaginal discharge On: :37 Request WILMER CULTURE-OTHER (26426)Indication: Vaginal discharge On: :37 Request URINE WILMER CULTURE (OSMAN COL COUNT) (98460)Indication: dysuria On: :36 Request LIPID PANEL (56605)Indication: Hypercholesteremia On: :36 Request CBC WITH MANUAL DIFF (59897)Indication: Chronic blood loss anemia On: :34 Request METABOLIC PANEL, COMPREHENSIVE (78454)Indication: Hypopotassemia On: :34 Request WET MOUNT WITH AVEL (21008)Indication: Vaginal discharge On: 38-Hds-670077:11 Request BACT CULTURE ANY-ANAEROBIC (91726)Indication: Vaginal discharge On: :11 Request WILMER CULTURE-OTHER (48920)Indication: Vaginal discharge On: 09-Ihv-020930:10 Request URINE WILMER CULTURE-IDENTIFICATN (11647)Indication: dysuria On: :09 Request CBC WITH MANUAL DIFF (07898)Indication: Chronic blood loss anemia On: :59 Request Comments: 1 month LIPID PANEL (74896)Indication: Hypercholesteremia On: :59 Request Comments: 3 mos HEPATIC FUNCTION PANEL (80438)Indication: Hypercholesteremia On: :59 Request URINE WILMER CULTURE (OSMAN COL COUNT) (45663)Indication: Urinary frequency On: :33 Request MICROALBUMIN URINE QUANT (16110)Indication: Hypertension On: :32 Request URINALYSIS W/O MICRO (50396)Indication: Hypertension On: :32 Request TSH (17019)Indication: Hypertension On: :32 Request METABOLIC PANEL, COMPREHENSIVE (09463)Indication: Hypertension On: :32 Request LIPID PANEL (89565)Indication: Hypertension On: :32 Request CBC WITH MANUAL DIFF (31289)Indication: Hypertension On: :32 Request TSH (THYROID STIMULATING HORMONE) (24472)Indication: Thyroid nodule On: :32 Request GLUCOSE TOLERANCE TEST (GTT) 2 hour (70054)Indication: Urinary frequency On: :31 Request Planned Encounters Medical; 3 Month FU - On: 30-Aug-2018 15:45 [facility] Maddy Monterroso CNP, CNP, Mary E Planned Procedures MRI OF LUMBAR SPINE WITH AND WITHOUT On: 31-May-2018 Intent CONTRAST ([id number])By: Maddy Monterroso CNP, CNP, Mary E Toradol Injection, 30 mg ([id number])By: On: 31-May-2018 Intent Maddy Monterroso CNP, CNP, Mary E X-RAY OF LUMBAR SPINE, FOUR VIEWS On: 11-May-2018 Intent ([id number])By: Maddy Monterroso CNP, CNP, Mary E XR HIP LEFT COMPLETE ([id number])By: Kriss On: 11-May-2018 Intent Maddy LYNCH CNP, Mary E Radiology - Hip - LeftBy: Kriss LYNCH, On: 10-May-2018 Intent Maddy Baker CNP Toradol Injection, 30 mg ([id number])By: On: 10-May-2018 Intent Maddy Monterroso CNP, CNP, Mary E Radiology - Lumbar SpineBy: Ciesa On: 10-May-2018 Intent Maddy LYNCH CNP, Mary E DIAGNOSTIC DIGITAL MAMMOGRAPHY OF On: 16-Apr-2018 Intent RIGHT BREAST ([id number])By: Maddy Monterroso CNP, CNP, Mary E MAMMOGRAM BREAST RIGHT DIAGNOSTIC On: 07-Oct-2017 Intent ([id number])By: Kriss LYNCHMaddy E Amparodavidtripp LYNCHMaddy DEXA SCAN AXIAL SKELETON ([id number])By: On: 20-Jul-2017 Intent Jaydentirpp LYNCHMaddy E Amparodavidtripp LYNCHMaddy SCREENING DIGITAL TOMOSYNTHESIS OF On: 20-Jul-2017 Intent BREAST ([id number])By: Kriss LYNCHMaddy E Kriss LYNCH [place] - Abdomen & Pelvis Stone On: 20-Jul-2017 Intent ProtocolBy: Jaydentripp LYNCHMaddy E Amparodavidtripp LYNCH Maddy Orozco MAMMOGRAM BREAST BILATERAL SCREENING On: 11-Sep-2016 Intent DIGITAL ([id number])By: Kriss LYNCHMaddy Kriss LYNCH [place] Ultrasound - RenalBy: Kriss LYNCHMaddy On: 03-Jun-2016 Intent E Kriss LYNCHMaddy ELECTROCARDIOGRAM, COMPLETE (ECG) On: 03-Jun-2016 Intent ([id number])By: Grace Nolasco LPN Comments: sinus rhythm TRANSVAGINAL ULTRASOUND ([id number])By: On: 21-Mar-2016 Intent Maddy Monterroso CNP E Amparodavidtripp LYNCHMaddy E Ultrasound - PelvisBy: [place] LYNCH, On: 17-Mar-2016 Intent Maddy Orozco Kriss LYNCH [place] Ultrasound - RenalBy: Kriss LYNCHMaddy On: 17-Mar-2016 Intent E Kriss LYNCH [place] MAMMOGRAM, SCREENING, BOTH BREAST On: 06-Aug-2015 Intent ([id number])By: Kriss LYNCHMaddy Pam Monterroso CNP [place] Ultrasound - PelvisBy: Kriss LYNCH, On: 27-Jun-2015 Intent Maddy Orozco Kriss LYNCH [place] Comments: if done at [facility] please send to [place] and Dr. [place] CT - Abdomen & Pelvis (IV Contrast On: 11-Jun-2015 Intent Needed)By: Kriss LYNCH [place] Monterro[place] CNP [place] Bone Density StudyBy: Kriss LYNCH Maddy On: 23-Apr-2015 Intent E Kriss LYNCH [place] BIOPSY OF SKIN LESION, SINGLE On: 02-Oct-2014 Intent ([id number])By: Kriss LYNCH [place]am Monterro[place] CNP [place] REMOVAL OF SKIN TAGS, UP TO 15 On: 02-Oct-2014 Intent ([id number])By: Kriss LYNCH Maddy Orozco Amparodavidtripp LYNCH Maddy Orozco CALCULATED BMI ABOVE THE UPPER On: 24-Jul-2014 Intent PARAMETER AND A FOLLOW-UP PLAN WAS DOCUMENTED IN THE MEDICAL RECORD ([id number])By: Kriss LYNCH [place] Monterro[place] CNP Maddy Orozco HG A1C LEVEL < 7.0% (3044F)By: Kriss On: 24-Jul-2014 Intent Maddy LYNCH [place] CRIS Maddy Orozco EKG ([id number])By: Leyla Birch DO On: 12-Sep-2013 Intent Comments: nsr no acute chg SPECIMEN HANDLING/TRANSPORT On: 12-Sep-2013 Intent ([id number])By: Kriss LYNCH [place]am Monterroso CNP [place] Aerosol Treatment ([id number])By: Kriss On: 24-Jun-2013 Intent Maddy LYNCH [place] CRIS Maddy Orozco Aerosol Treatment ([id number])By: Kriss On: 14-Jun-2013 Intent CRIS Maddy Orozco Amparodavidtripp LYNCH Maddy Orozco SPECIMEN HANDLING/TRANSPORT On: 31-May-2013 Intent ([id number])By: Bibi Jain LPN Ultrasound - ThyroidBy: Kriss LYNCH, On: 28-Feb-2013 Intent [place]am Monterroso CNP [place] Nuclear Medicine - OtherBy: Kriss On: 06-Jun-2011 Intent Maddy LYNCH [place] CRIS Maddy Orozco Comments: LIVER-SPLEEN SCAN nuclear medicine CT - Abdomen & PelvisBy: Kriss LYNCH, On: 28-Feb-2011 Intent [place]am Monterroso CNP [place] Breast Screening - BilateralBy: Fast On: 05-Jun-2010 Intent DO Ramonita A Ultrasound - ThyroidBy: Fast DO, On: 05-Jun-[address] - Brain/HeadBy: Brayden JACKSON Ramonita A On: 04-Jun-2010 Intent Radiology - Knee - Right - Weight On: 25-Feb-2010 Intent BearingBy: Brayden DO Ramonita A Radiology - Lumbar SpineBy: Fast DO, On: 21-Dec-2009 Intent Ramonita A EKG ([id number])By: Tashia Casiano On: 15-Oct-2009 Intent Comments: ekg showed normal sinus rhythym, normal axis, no acute st/t wave changes Ultrasound - LiverBy: Tristan East DOa On: 16-Jul-2009 Intent A Radiology - Thoracic SpineBy: Eyal On: 23-Apr-2009 Intent eLyla JACKSON Radiology - Lumbar SpineBy: Eyal On: 23-Apr-2009 Intent Leyla JACKSON Radiology - Hand - RightBy: Brayden DO, On: 09-Apr-2009 Intent Ramonita A Comments: attn right thumb MAMMOGRAM, SCREENING, BOTH BREASTS On: 26-Dec-2008 Intent ([id number])By: Ramonita East DO A DXA, BONE DENSITY, AXIAL SKELETON On: 26-Dec-2008 Intent ([id number])By: Tristan East DOa A Ultrasound - ThyroidBy: Fast , On: 05-Sep-2008 Intent Ramonita A EKG ([id number])By: Tashia Casiano On: 05-Sep-2008 Intent Comments: ekg showed normal sinus rhythym, normal axis, no acute st/t wave changes MAMMOGRAM, SCREENING, BOTH BREASTS On: 17-Feb-2007 Intent ([id number])By: NATALEE SCHMITZ CNP Ultrasound - PelvisBy: Ramonita East DO On: 21-Oct-2006 Intent A Ultrasound - ThyroidBy: Brayden JACKSON, On: 21-Oct-2006 Intent Ramonita A Planned Medications INJECTION, KETOROLAC TROMETHAMINE, PER 15 MG Ordered: 10-May-2018 Pending Maddy Monterroso CNP, CNP, Mary E INJECTION, KETOROLAC TROMETHAMINE, PER 15 MG Ordered: 31-May-2018 Pending Maddy Monterroso CNP, CNP, Mary E [...] Diabetes mellitus, controlled : DISCONTINUED - CALCIFEDIOL ([id number]) Indication: Diabetes mellitus, controlled Diabetes mellitus, controlled : DISCONTINUED - HGB A1C ([id number]) Indication: Diabetes mellitus, controlled DEFICIENCY, VITAMIN D NOS : DISCONTINUED - CALCIFEDIOL ([id number]) Indication: DEFICIENCY, VITAMIN D NOS Hypercholesteremia : DISCONTINUED - LIPID PANEL ([id number]) Indication: Hypercholesteremia Hypercholesteremia : DISCONTINUED - LIPID PANEL ([id number]) Indication: Hypercholesteremia DEFICIENCY, VITAMIN D NOS : DISCONTINUED - CALCIFEDIOL ([id number]) Indication: DEFICIENCY, VITAMIN D NOS Kidney stone [...] Instructions Indication: Bleeding gums Encounters Annotation/Addendum On: 14-Jun-2018 13:23 Encounter Diagnosis: Sciatica (724.3) End: 14-Jun-2018 13:25 [facility] Office Visit On: 31-May-2018 15:42 Encounter Reason: [...] night. Nutrition: inappropriate diet. The medical issues patient is following up for include All [...] like bra stuck her. Ultrasound done at [facility] Encounter Diagnosis: Hypertension, Flank pain End: 17-Mar-2016 [...] for Follow up ER: Had xray in [facility] rt lower quad forund constipation given colace [...] for chronic medical issues: she went to [facility] due to allergies-- she had a [...]
--- OUTSIDE RECORDS SUMMARY | 2018-09-24 05:46 | XMS RPT_ITS ---
:1960 Author Organization [place] Support Name Relationship Address Phone SM Unavailable [address] + [place] [address] DANIEL, DAYANARA Unavailable [address] + [place] [address] JMSM Unavailable [address] + [place] [address] DANIEL, DAYANARA Unavailable [address] + [place] [address] DANIEL, DAYANARA Unavailable Unavailable + DANIEL, DAYANARA Unavailable Unavailable + DANIEL, DAYANARA Unavailable Unavailable + TREVOR, CHRYSTOFER Unavailable [address] + [place] [address] DANIEL, DAYANARA Unavailable Unavailable + DANIEL, DAYANARA Unavailable Unavailable + DANIEL, DAYANARA Unavailable Unavailable + TREVOR, CHRYSTOFER Unavailable [address] + [place] [address] JMSM Unavailable [address] + [place] [address] DANIEL, DAYANARA Unavailable [address] + [place] [address] DANIEL, DAYANARA Unavailable Unavailable + DANIEL, DAYANARA Unavailable Unavailable + DANIEL, DAYANARA Unavailable Unavailable + TREVOR, CHRYSTOFER Unavailable [address] + [place] [address] DANIEL, DAYANARA Unavailable Unavailable + DANIEL, DAYANARA Unavailable Unavailable + DANIEL, DAYANARA Unavailable Unavailable + TREVOR, CHRYSTOFER Unavailable [address] + [place] [address] DANIEL, DAYANARA Unavailable Unavailable + DANIEL, DAYANARA Unavailable Unavailable + DANIEL, DAYANARA Unavailable Unavailable + TREVOR, CHRYSTOFER Unavailable [address] + [place] [address] DANIEL, DAYANARA Unavailable Unavailable + DANIEL, DAYANARA Unavailable Unavailable + DANIEL, DAYANARA Unavailable Unavailable + DANIEL, DAYANARA Unavailable Unavailable + DANIEL, DAYANARA Unavailable Unavailable + DANIEL, DAYANARA Unavailable Unavailable + DANIEL, DAYANARA Unavailable Unavailable + DANIEL, DAYANARA Unavailable Unavailable + DANIEL, DAYANARA Unavailable Unavailable + DANIEL, DAYANARA Unavailable Unavailable + JMSM Unavailable [address] + [place] [address] DANIEL, DAYANARA Unavailable [address] + [place] [address] JMSM Unavailable [address] + [place] [address] DANIEL, DAYANARA Unavailable [address] + [place] [address] JMSM Unavailable [address] + [place] [address] DANIEL, DAYANARA Unavailable [address] + [place] [address] Care Team Providers Name Role Phone Maddy Harris Attending Unavailable Ciesa, Maddy Referring Unavailable Ciesa, Maddy Consulting Unavailable CIESA GRAPHIC DESIGN TEACHER, MADDY Attending Unavailable CIESA GRAPHIC DESIGN TEACHER, MADDY Primary Care Unavailable CIESA GRAPHIC DESIGN TEACHER, MADDY Attending Unavailable CIESA GRAPHIC DESIGN TEACHER, MADDY Primary Care Unavailable CIESA GRAPHIC DESIGN TEACHER, MADDY Attending Unavailable CIESA GRAPHIC DESIGN TEACHER, MADDY Primary Care Unavailable CIESA GRAPHIC DESIGN TEACHER, MADDY Attending Unavailable CIESA GRAPHIC DESIGN TEACHER, MADDY Primary Care Unavailable CIESA GRAPHIC DESIGN TEACHER, MADDY Attending Unavailable CIESA GRAPHIC DESIGN TEACHER, MADDY Primary Care Unavailable CIESA GRAPHIC DESIGN TEACHER, MADDY Attending Unavailable CIESA GRAPHIC DESIGN TEACHER, MADDY Primary Care Unavailable CIESA GRAPHIC DESIGN TEACHER, MADDY Attending Unavailable CIESA GRAPHIC DESIGN TEACHER, MADDY Primary Care Unavailable CIESA GRAPHIC DESIGN TEACHER, MADDY Attending Unavailable CIESA GRAPHIC DESIGN TEACHER, MADDY Primary Care Unavailable CIESA GRAPHIC DESIGN TEACHER, MADDY Attending Unavailable CIESA GRAPHIC DESIGN TEACHER, MADDY Primary Care Unavailable CIESA GRAPHIC DESIGN TEACHER, MADDY Primary Care Unavailable CIESA GRAPHIC DESIGN TEACHER, MADDY Attending Unavailable CIESA GRAPHIC DESIGN TEACHER, MADDY Referring Unavailable CIESA GRAPHIC DESIGN TEACHER, MADDY Attending Unavailable CIESA GRAPHIC DESIGN TEACHER, MADDY Primary Care Unavailable MIKA VELAZQUEZ Referring Unavailable GUERRERO CARRANZA Admitting Unavailable GUERRERO CARRANZA Attending Unavailable ZOESA, DIANE Referring Unavailable Les Newsome Attending Unavailable Les Newsome Referring Unavailable CiesaMaddy Primary Care Unavailable Ciesa, Maddy Attending Unavailable CiesaMaddy Primary Care Unavailable Mika Velazquez Attending Unavailable Mika Velazquez Referring Unavailable CiesaMaddy Primary Care Unavailable Rod Bender Attending Unavailable Mika Velazquez Referring Unavailable CiesaMaddy Attending Unavailable Ciesa, Maddy Referring Unavailable CiesaMaddy Primary Care Unavailable Ciesa, Maddy Attending Unavailable Ciesa, Maddy Referring Unavailable CiesaMaddy Primary Care Unavailable JOSÉ LUIS SHRESTHA Attending Unavailable JOSÉ LUIS SHRESTHA Referring Unavailable GUERRERO CARRANZA Attending Unavailable GUERRERO CARRANZA Referring Unavailable TASHIA PICKENS (PA) Referring Unavailable GUERRERO CARRNAZA Attending Unavailable CIESA, DIANE (DINING [employer]) Referring Unavailable MIKA VELAZQUEZ Attending Unavailable MIKA VELAZQUEZ Attending Unavailable MIKA VELAZQUEZ Attending Unavailable PROBLEMS PROBLEMS DATE TYPE CONDITION / CODE ATTENDING STATUS SOURCE 05/11/2018 Unknown M54.30 - Sciatica, Maddy Harris Active [facility] unspecified side / Community M54.30(ICD-10) Hospital Repository 05/11/2018 Unknown M25.559 - Pain in Maddy Harris Active [place] unspecified hip / Community M25.559(ICD-10) Hospital Repository 10/16/2017 Active Intra-abdominal and GUERRERO CARRANZA Active [facility] pelvic swelling, Clinic Other mass and lump, [place] unspecified site / Repository R19.00(ICD-10) 11/12/2017 Active Other acute MAHGUERRERO TOMLINSON Active [facility] postprocedural pain Clinic Other / G89.18(ICD-10) [place] Repository 11/06/2017 Active Encounter for other NA Active [facility] pre[facility]cedural Clinic Main examination / [place] Z01.818(ICD-10) Repository 10/05/2017 Active Generalized NA Active [facility] intra-abdominal and Clinic Other pelvic swelling, [place] mass and lump / Repository R19.07(ICD-10) 10/05/2017 Active Pelvic and perineal NA Active [facility] pain / R10.2(ICD-10) Clinic Other [place] Repository 09/17/2017 Unknown G89.18 - Other acute [place], Active [facility] postprocedural pain Mika [facility] / G89.18(ICD-10) Hospital Repository 10/17/2017 Unknown I10 - Essential [place], [place] Active [facility] (primary) [facility] hypertension / Hospital I10(ICD-10) Repository 10/17/2017 Unknown Z01.810 - Encounter [place], [place] Active [facility] for preprocedural [facility] cardiovascular Hospital examination / Repository Z01.810(ICD-10) 08/26/2017 Unknown R10.9 - Unspecified Maddy Harris Active [facility] abdominal pain / Community R10.9(ICD-10) Hospital Repository PROCEDURES PROCEDURES No Procedure Records FoundRESULTS RESULTS LOWER EXT/NO JT/W/O Observed: 06/22/2018 Status: F Source: [place] 5:14 PM [facility] REPOSITORY [facility] Imaging Services [address] [place] [address] Lower Ext/No Jt/w/o MR#: [id number] Acct: [id number] Name: DAYANARA MURRAY Hamida Rep #: [id number] : 1960 F 57 From: Percy Alfaro MD PCP: Maddy Harris NP Status: REG CLI Study: Lower Ext/No Jt/w/o Date of Exam: 06/22/18 Exam# [id number] Ordering Dr: Les Newsome DPChad STUDY: MRI RIGHT MIDFOOT REASON FOR EXAM: Female, 57 years old. Pain. Osteoarthritis. TECHNIQUE: Standardized fat and water weighted pulse sequences were obtained in all 3 orthogonal planes. COMPARISON: None. FINDINGS: Normal talonavicular articulation. Normal calcaneocuboid articulation. There is mild degenerative arthrosis of the navicular-cuneiform articulation. There is mild degenerative arthrosis of the intercuneiform articulation. Normal first tarsometatarsal articulation. Normal Lisfranc ligament. Normal second and third tarsometatarsal articulations. Normal cuboid fourth and cuboid fifth tarsometatarsal articulation. There is marrow edema of the proximal shaft of the third and fourth metatarsals, series 5 images and . Arthritic change at the first MTP joint with effusion. Normal tibialis anterior tendon. Normal extensor hallucis longus tendon. Normal extensor digitorum longus tendons. Normal peroneus longus tendon and distal insertion. Normal peroneus brevis tendon and distal insertion. Normal intrinsic muscles of the mid and forefoot region. Normal extensor digitorum brevis muscle. Normal subcutis adipose space. MRI/Lower Ext/No Jt/w/o IMPRESSION: Arthritic change of the midfoot. Edema with stress injury or bone bruising of the third and fourth metatarsals. Electronically Signed: Percy Alfaro MD at 20:11 EST , Service support , CC: Maddy Harris DINING [employer]; Les Newsome DPM Mileage Clerk: Signed LOWER EXT/NO JT/W/O Observed: 06/22/2018 Status: F Source: [place] 5:14 PM [facility] REPOSITORY [facility] Imaging Services [facility] [place] [address] Lower Ext/No Jt/w/o MR#: [id number] Acct: [id number] Name: DAYANARA MURRAY Rep #: [id number] : 1960 F 57 From: Percy Alfaro MD PCP: Maddy Harris NP Status: REG CLI Study: Lower Ext/No Jt/w/o Date of Exam: 06/22/18 Exam# [id number] Ordering Dr: Les Newsome DPM STUDY: MRI LEFT MIDFOOT REASON FOR EXAM: Female, 57 years old. Pain. Osteoarthritis. TECHNIQUE: Standardized fat and water weighted pulse sequences were obtained in all 3 orthogonal planes. COMPARISON: None. FINDINGS: Normal talonavicular articulation. Normal calcaneocuboid articulation. There is mild degenerative arthrosis of the navicular-cuneiform articulation. There is mild degenerative arthrosis of the intercuneiform articulation. Normal first tarsometatarsal articulation. Normal Lisfranc ligament. There is mild degenerative arthrosis of the second and third tarsometatarsal articulations. There is mild degenerative arthrosis of the cuboid fourth and cuboid fifth tarsometatarsal articulations. There is marrow edema of the cuneiform bones. There is marrow edema at the base of the third metatarsal, series 5 image 15/24. There is marrow edema of the proximal fourth metatarsal. There is arthritic change at the first MTP joint Normal tibialis anterior tendon. Normal extensor hallucis longus tendon. Normal extensor digitorum longus tendons. Normal peroneus longus tendon and distal insertion. Normal peroneus brevis tendon and distal insertion. Normal intrinsic muscles of the mid and forefoot region. Normal extensor digitorum brevis muscle. Normal subcutis adipose space. MRI/Lower Ext/No Jt/w/o IMPRESSION: Arthritic change of the midfoot. Marrow edema with stress injury or bone bruising of the third and fourth metatarsals and cuneiform bones. Electronically Signed: Percy Alfaro MD at 23:03 EST , Service support , CC: Maddy Harris NP; Les Newsome DPM Mileage Clerk: Signed SPINE LUMBAR Observed: 06/11/2018 Status: F Source: [place] (ROUTINE) 5:51 PM [facility] REPOSITORY [facility] Imaging Services [address] [place] [address] Spine Lumbar (Routine) MR#: [id number] Acct: [id number] Name: DAYANARA MURRAY Rep #: [id number] : 1960 F 57 From: Parth Mercado MD PCP: Maddy Harris NP Status: REG CLI Study: Spine Lumbar (Routine) Date of Exam: 06/11/18 Exam# [id number] Ordering Dr: Maddy Harris DINING CAR HOP-C STUDY: MRI LUMBAR SPINE WITHOUT CONTRAST REASON FOR EXAM: Female, 57 years old. Low back pain, left leg and bilateral feet for many years. Sciatica. TECHNIQUE: Standardized fat and water weighted pulse sequences were obtained in the sagittal and axial planes. COMPARISON: CT of the abdomen and pelvis 08/26/2017. FINDINGS: T10-T11: (Sagittal only). Normal endplates. Normal disc height, hydration and morphology. No ventral extra dural defect. Normal central canal and bilateral intervertebral neural foramina. T11-T12: (Sagittal only). Normal endplates. Normal disc height, hydration and morphology. No ventral extradural defect. Normal central canal and bilateral intervertebral neural foramina. T12-L1: (Sagittal only). Normal endplates. Normal disc height, hydration and morphology. No ventrolateral defect. Normal central canal and bilateral intervertebral neural foramina. Normal lumbar lordosis. There is no substantial scoliosis. Normal conus medullaris that terminates at the T12-L1 disc level. L1-2: Normal endplates. Minimal disc space height narrowing. Small posterior bulging disc. Normal central canal and bilateral lateral recesses. Normal facet joints. Normal bilateral intervertebral neural foramina. L2-3: Normal endplates. Normal disc height, hydration and morphology. Normal bilateral facet joints. Normal central canal and bilateral lateral recesses. Normal bilateral intervertebral neural foramina. L3-4: Normal endplates. Mild disc space height narrowing. Minimal degenerative anterolisthesis of L3 on L4 with small posterior bulging disc. Normal central canal and bilateral lateral recesses. Mild degenerative facet arthropathy. Normal bilateral intervertebral neural foramina. L4-5: Normal endplates. Normal disc height and morphology. Normal central canal and bilateral lateral recesses. Mild right degenerative facet arthropathy. Normal left facet joint. Normal bilateral intervertebral neural foramina. L5-S1: Normal endplates. Mild disc space height narrowing. Normal ventral extra dural defect. Normal central canal and bilateral lateral recesses. Mild asymmetric degenerative facet arthropathy. Normal bilateral intervertebral neural foramina. Normal visualized sacral ala. Normal visualized paraspinous soft tissue structures. MRI/Spine Lumbar (Routine) IMPRESSION: 1. No MRI evidence of lumbar extruded disc fragment, spinal stenosis or nerve root displacement. 2. Minimal degenerative anterolisthesis of L3 on L4 with small posterior bulging disc. This is a new finding when compared to 08/26/2017 CT of the abdomen and pelvis. 3. Mild right L4-L5 degenerative facet arthropathy. 4. Mild asymmetric L5-S1 degenerative facet arthropathy. Electronically Signed: Parth Mercado MD at 11:29 EST , Service support , CC: Maddy Harris NP Mileage Clerk: Signed XR HIP MINIMUM 2 Observed: 05/12/2018 Status: F Source: [place] [employer] VIEWS LEFT 4:14 PM [facility] REPOSITORY ORIGINAL XR HIP MINIMUM 2 VIEWS LEFT CLINICAL STATEMENT: Left hip pain. COMPARISON: None FINDINGS: No acute fracture, dislocation, aggressive osseous lesion, or radiopaque foreign body is identified. There is a small spur of the acetabulum. The joint space is maintained. There are mild dege nerative changes at the sacroiliac joints. Phleboliths are identified in the pelvis. IMPRESSION: Minimal degenerative change. Interpreted By: Aydee Olsen MD Preliminary Report By: Aydee Olsen MD Electronically Signed By: Aydee Olsen MD Dictated Date: 05/13/2018 8:47:14 AM Prelim Date: 05/13/2018 8:47:14 AM Sign Date: 05/13/2018 8:51:02 AM XR SPINE LUMBAR Observed: 05/12/2018 Status: F [facility]: [email or web address] AP/LAT 4:13 PM [facility] REPOSITORY ORIGINAL XR SPINE LUMBAR AP/LAT CLINICAL STATEMENT: Sciatica. COMPARISON: None FINDINGS: There are 5 lumbar type vertebral bodies which are maintained in appropriate alignment. Vertebral body heights are preserved. There is mild disc space narrowing throughout the lumbar spine with some spa ring at L4-L5. Small osteophytes are seen at several levels. Facet arthropathy is seen in the lower lumbar spine. IMPRESSION: Mild multilevel degenerative changes. Interpreted By: Aydee Olsen MD Preliminary Report By: Aydee Olsen MD Electronically Signed By: Aydee Olsen MD Dictated Date: 05/13/2018 8:46:10 AM Prelim Date: 05/13/2018 8:46:10 AM Sign Date: 05/13/2018 8:47:01 AM LIPID Collected: 05/01/2018 Status: F Source: [employer] 9:28 AM [facility] REPOSITORY TYPE CODE TESTS RESULT OUT OF REFERENCE UNITS RANGE LAB CHOL(LOINC 0-200 mg/dL ) Cholesterol High 211 Result Comment: Cholesterol Reference Interval: Less than 200 Desirable 200-239 Borderline high risk 240 and above High risk LAB TRIG(LOINC) 0-150 mg/dL Triglycerides 118 Result Comment: Triglyceride Reference Interval: Less than 150 Normal 150-199 Borderline high risk 200-499 High risk 500 or higher Very high risk LAB HD(LOINC) 40-60 mg/dL HDL Cholesterol 43 LAB LDL(LOINC) 0-130 mg/dL LDL High Cholesterol 144 Performed By: #### LIPID, CMP, GFR, VIDH #### [address] [address] #### CBC, ADIFF, ANEU #### [address] [address] CMP Collected: 05/01/2018 Status: F Source: [place] [employer] 9:28 AM [facility] REPOSITORY TYPE CODE TESTS RESULT OUT OF REFERENCE UNITS RANGE LAB GLU(LOINC) 70-105 mg/dL Glucose Level 101 LAB NA(LOINC) 136-145 mmol/L Sodium Level 140 LAB K(LOINC) 3.5-5.1 mmol/L Potassium Level 4.9 LAB CL(LOINC) 98-107 mmol/L Chloride 103 LAB CO2(LOINC) 22-29 mmol/L CO2 29 LAB EBAL(LOINC mEq/L ) Electrolyte Balance 8.0 LAB BUN(LOINC) 7-18 mg/dL BUN 13 LAB CRE(LOINC) 0.55-1.02 mg/dL Creatinine Lvl (s) 0.74 LAB BC(LOINC) 7-27 ratio BUN/Creatinine 18 Ratio LAB CA(LOINC) 8.4-10.2 mg/dL Calcium Lvl 9.1 LAB PROT(LOINC 6.4-8.2 G/dL ) Total Protein 7.6 LAB ALB(LOINC) 3.5-5.0 G/dL Albumin Level 3.7 LAB GLB(LOINC) G/dL Globulin 3.9 LAB AG(LOINC) 1.1-2.5 ratio Low A/G Ratio 0.9 LAB BILT(LOINC 0.2-1.0 mg/dL ) Bili Total 0.3 LAB AP(LOINC) 40-135 U/L Alk Phos 74 LAB AST(LOINC) 10-40 U/L AST/SGOT 22 LAB ALT(LOINC) 10-35 U/L ALT/SGPT 33 Performed By: #### LIPID, CMP, GFR, VIDH #### [address] [address] #### CBC, ADIFF, ANEU #### [address] [address] .GFR Collected: 05/01/2018 Status: F Source: [facility] 9:28 AM [facility] REPOSITORY TYPE CODE TESTS RESULT OUT OF REFERENCE UNITS RANGE LAB GFRAA(LOINC ml/min/1.73 ) sqm GFR 98 [place]ian Result Comment: GFR Population mean for , Non- Americans Ages 20-29 = 116 mL/min/1.73 sq.m. Ages 30-39 = 107 mL/min/1.73 sq.m. Ages 40-49 = 99 mL/min/1.73 sq.m. Ages 50-59 = 93 mL/min/1.73 sq.m. Ages 60-69 = 85 mL/min/1.73 sq.m. Ages 70+ = 75 mL/min/1.73 sq.m. Chronic Kidney Disease: Less than 60 mL/min/1.73 square meters End Stage Renal Disease: Less than 15 mL/min/1.73 square meters LAB GFRNO(LOINC) ml/min/1.73sqm GFR Non- 81 Result Comment: GFR Population mean for , Non- Americans Ages 20-29 = 116 mL/min/1.73 sq.m. Ages 30-39 = 107 mL/min/1.73 sq.m. Ages 40-49 = 99 mL/min/1.73 sq.m. Ages 50-59 = 93 mL/min/1.73 sq.m. Ages 60-69 = 85 mL/min/1.73 sq.m. Ages 70+ = 75 mL/min/1.73 sq.m. Chronic Kidney Disease: Less than 60 mL/min/1.73 square meters End Stage Renal Disease: Less than 15 mL/min/1.73 square meters Performed By: #### LIPID, CMP, GFR, VIDH #### [address] [address] #### CBC, ADIFF, [facility] #### [address] [address] CBC Collected: 05/01/2018 Status: F Source: [facility] 9:28 AM [facility] REPOSITORY TYPE CODE TESTS RESULT OUT OF REFERENCE UNITS RANGE LAB WBC(LOINC) 4.60-10.80 10 3/mcL WBC 10.50 LAB RBCCT(LOINC 4.20-5.40 10 6/mcL ) RBC 5.17 LAB HGB(LOINC) 12.0-16.0 G/dL Hgb 15.2 LAB HCT(LOINC) 37.0-47.0 % Hct 46.5 LAB MCV(LOINC) 80.0-94.0 fL MCV 89.9 LAB MCH(LOINC) 27.0-31.2 pg MCH 29.5 LAB MCHC(LOINC) 33.0-37.0 G/dL Low MCHC 32.8 LAB RDW(LOINC) 11.5-14.5 % RDW 12.8 LAB PLT(LOINC) 130-400 10 3/mcL Platelet 362 LAB MPV(LOINC) 7.4-10.4 fL MPV 9.9 Performed By: #### LIPID, CMP, GFR, VIDH #### [place] [address] #### CBC, ADIFF, ANEU #### [address] [address] .AUTO DIFF Collected: 05/01/2018 Status: F Source: [facility] 9:28 AM [facility] REPOSITORY TYPE CODE TESTS RESULT OUT OF REFERENCE UNITS RANGE LAB GUADALUPE(LOINC) 37.0-80.0 % Neutrophil % 43.9 LAB LYM(LOINC) 10.0-50.0 % Lymphocyte % 45.7 LAB MON(LOINC) 1.7-13.0 % Monocyte % 7.9 LAB EO(LOINC) 0.0-7.0 % Eosinophil % 1.9 LAB BAS(LOINC) 0.0-2.5 % Basophil % 0.6 LAB ABLYM(LOIN 0.77-3.85 10 3/mcL C) High Lymphocyte, 4.80 Absolute LAB LUIS ANTONIO(LOINC 0.15-1.00 10 3/mcL ) Monocyte, 0.80 Absolute LAB AEOS(LOINC 0.00-0.40 10 3/mcL ) Eosinophil, 0.20 Absolute LAB ABAS(LOINC 0.00-0.19 10 3/mcL ) Basophil, 0.10 Absolute Performed By: #### LIPID, CMP, GFR, VIDH #### [place] [address] #### CBC, ADIFF, ANEU #### [address] [address] .NEUABS Collected: 05/01/2018 Status: F Source: [facility] 9:28 AM [facility] REPOSITORY TYPE CODE TESTS RESULT OUT OF REFERENCE UNITS RANGE LAB ANEU(LOINC) 2.85-6.16 10 3/mcL Neutrophil, 4.60 Absolute Performed By: #### LIPID, CMP, GFR, VIDH #### [place] [address] #### CBC, ADIFF, ANEU #### [address] [address] VIDH Collected: 05/01/2018 Status: F Source: [facility] 9:28 AM [facility] REPOSITORY TYPE CODE TESTS RESULT OUT OF RANGE REFERENCE UNITS LAB VIDH(LOINC) ng/mL Vit. D 13 25-Hydroxy Result Comment: Interpretive Values Based on Total 25(OH)D: Severe Deficiency <20 ng/mL Mild to Moderate Deficiency 20-30 ng/mL Optimum Levels 30-100 ng/mL Toxicity Possible >100 ng/mL Performed By: #### LIPID, CMP, GFR, VIDH #### [facility] [address] [place] [address] #### CBC, ADIFF, ANEU #### [address] [address] [place] MAMMOGRAM Observed: 04/22/2018 Status: F Source: [facility] DIAGNOSTIC RIGHT 1:30 PM [facility] REPOSITORY Terrence/SHERIE ORIGINAL FROM: [place] [address] PROCEDURE FOR: DAYANARA MURRAY [address] [place] [address] Home: PID#: [id number] Exam#: [id number] : 1960 Age: 57 TO: MADDY HARRIS [facility] [address] [place] [address] #[id number] UNILATERAL RIGHT DIGITAL DIAGNOSTIC MAMMOGRAM 3D/2D WITH CAD WITH MEDIOLATERAL MEDIOLATERAL OBLIQUE CRANIOCAUDAL: 04/22/2018 CLINICAL: 6 MONTHS FOLLOW-UP. Comparison is made to exams dated: 09/29/2017 ultrasound, 09/25/2017 mammogram, and 09/18/2016 mammogram - [facility]. There are scattered fibroglandular elements in right breast. Current study was also evaluated with a Computer Aided Detection (CAD) system. There is a 9 mm focal asymmetry in the right breast central to the nipple posterior depth. No other significant masses or calcifications are seen in the breast. IMPRESSION: PROBABLY BENIGN The 9 mm focal asymmetry in the right breast appears probably benign. A follow-up mammogram in 6 months is recommended to demonstrate stability.(10/22/2018) REMI BRASHER MD cc/leidy:04/22/2018 16:26:46 Cobbler Sole(s): RAY SANDY, RT(R), [facility] letter sent: Probably Benign BI-RADS 3 Mammogram BI-RADS: 3 Probably benign PROGRESS Observed: 03/23/2018 Status: COMPLETED Source: [place] 4:16 PM [facility] REPOSITORY HNO ID: [id number] Author: José Luis Shrestha Service: (none) Author Type: Physician Type: Progress Notes Filed: 05/04/2018 9:15 PM Note Text: Last Visit: March 23, 2017 Reason for follow up: Thyroid Ca HISTORY OF PRESENT ILLNESS; Ms. Murray is a 57 year old woman came for follow up visit regarding Thyroid Ca . She was initially diagnosed with a thyroid disorder in 2008, when she went for physical exam and found to have Rt sided thyroid nodule, s/p FNA showed benign. She lost follow up one more year and then when she went 2 years after that her nodule on the Rt side has enlarged and she went surgery directly, s/p Rt lobectomy in May 2013, initially frozen section showed no cancer so total thyroidectomy not cali, however, final pathology showed cancer, so she underwent total thyroidectomy in jul 2013. S/P I-131 rx in January 2014. March 19, 2015: didn't come for >1yr since the I-131 Rx. No labs, feeling good, sometime she feels constipation. On metformin for DM-2 since 2012. December 04, 2015: having some trouble with the Rt shoulder going to physical therapy and now feels better, lost some weight by cutting back in the bread and pop portion, not doing any exercise, planning to get a bicycle, eating more salad, so no more constipation. August 05, 2016: concerned about hair loss, and also hot flashes, stress at home, s/p shoulder surgery in Jun 2016. Last thyroid cancer related labs were done in December 2015. Last TSH was in Apr 2016 and we adjusted her LT4 dose. No new labs since then. Last Tg was from December 2015 and was <1 (outside lab). March 23, 2017: emotional eater, was watching diet and lost some weight but now gained it back. Currently on : 137 mcg of LT4 and doing well, no complaints, lot of stress in the family, her mother leaves with her, her son leaves with her, she has custody of her grand kids, March 23, 2018: had reaction shrimp since last visit, otherwise, OK, still on 137 mcg LT4, and doing well, no concern, no complaints, Severity, modifying factors, context and associated signs and symptoms are as follows: March 23, 2018 ? Thyroid pain: no ? Mass effect: no difficulty swallowing ? Energy: still get tired easily ? Sleep: still Restless 2-3 times going to bathroom ? Temperature Intolerance: usually mild heat intol ? 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 GI: regular ? Weight: lost some and gain back ? Eyes: stable, OK ? Memory: not as good as before ? Diaphoresis: normal no more hot flashes ? Skin: no sig changes ? Neuro: still occasional migraine headaches, dizziness ? History of radiation exposure to head or neck area? yes: I-131 Rx in January 2014 ? History of thyroid disorder or thyroid cancer in the family: no DM-2: Dx = 2010, Her PCP started telling her that she is prediabetic. Currently on one metformin XR 500 mg in the AM. Not Watching diet and not doing exercise. Monitors blood sugar 2 times a week: AM: 98-105, evenin Eye exam: Aug 2017: no retinopathy Vacc: declined, one took then she got sick, considering to start taking again after discussion Foot exam: by PCP in December 2017 Last diabetic education: 2014 PAST MEDICAL HISTORY Diagnosis Date - Backache, unspecified - Diabetes (HCC) - Dysthymic disorder Depression (non-psychotic) - Esophageal reflux - Essential hypertension, malignant - Headache(784.0) - Hyperglycemia - Hypopotassemia - Iron deficiency anemia secondary to blood loss (chronic) - Nontoxic uninodular goiter - Other malaise and fatigue - Pain in joint, site unspecified - Pure hypercholesterolemia - Rosacea - Sciatica - Unspecified vitamin D deficiency - Urinary frequency PAST SURGICAL HISTORY Procedure Laterality Date - COLONOSCOP W/ OR W/O [facility] SPEC 04-25-16 - HYSTERECTOMY HX 2006 partial hysterectomy-thinks one ovary left - LAPAROSCOPY, SURGICAL, SPLENECTOMY 09-12-11 - PAST SURGICAL HISTORY OF 2010 Gall Bladder - SHOULDER SURGERY HX Right 07/02/2016 [facility] - THYROID LOBECTOMY,UNILAT 05-26-13 RIGHT - THYROIDECTOMY POST PREV THYR SURG 07-14-13 LEFT--COMPLETION FAMILY HISTORY Problem Relation Age of Onset - Heart Father [place] - COPD Sister - Diabetes Other Nephew - Cancer Sister cervical - Diabetes Sister - Hypertension Sister Family and social history reviewed and updated in the system. SOCIAL HISTORY Social History Substance Use Topics - Smoking status: Former Smoker Years: 10.00 Types: Cigarettes Quit date: 07/03/2001 - Smokeless tobacco: Never Used Comment: Pt smoked 2 packs a week for 10 years. - Alcohol use Yes Comment: seldom Current Outpatient Prescriptions: levothyroxine (SYNTHROID) 137 mcg tablet TAKE 1 TABLET BY MOUTH DAILY BEFORE BREAKFAST. Disp: 90 tablet Rfl: 3 lisinopril (ZESTRIL, PRINIVIL) 10 mg tablet Take 10 mg by mouth once daily. Disp: Rfl: metFORMIN ER (GLUCOPHAGE XR) 500 mg 24 hr tablet Take 1 tablet by mouth daily with breakfast. Disp: 90 tablet Rfl: 3 ASCORBIC ACID (VITAMIN C ORAL) Take 500 mg by mouth once daily. Disp: Rfl: ATENOLOL 25 MG TAB Take one(1) tablet daily. Disp: Rfl: 0 predniSONE (DELTASONE) 20 mg tablet Take 1 tablet by mouth once daily. (Patient not taking: Reported on 03/23/2018 ) Disp: 5 tablet Rfl: 0 docusate sodium (COLACE) 100 mg capsule Take 1 capsule by mouth twice daily. (Patient not taking: Reported on 03/23/2018 ) Disp: 60 capsule Rfl: 1 ibuprofen (MOTRIN) 600 mg tablet Take 1 tablet by mouth every 6 hours as needed. FOR PAIN. (Patient not taking: Reported on 03/23/2018 ) Disp: 30 tablet Rfl: 1 cholecalciferol (VITAMIN D-3) 2,000 unit tablet Take 4,000 Units by mouth once daily. Disp: Rfl: Garlic 1,000 mg cap Take 1 tablet by mouth once daily. Disp: Rfl: NAPROXEN SODIUM (ALEVE ORAL) Take 1 tablet by mouth as needed. Disp: Rfl: No current facility-administered medications for this visit. ALLERGIES ALLERGIES Allergen Reactions - Adhesive Mental Status Change, Rash Blisters - Horse Hair And Dand* Other: See Comments Had testing - Morphine Hcl Other: See Comments Pulse dropped - Seasonal Allergies Other: See Comments Sneezing, itchy eyes, watery eyes REVIEW OF SYSTEMS: March 23, 2018 SYSTEMIC: still low energy, fluctuating weight EYES: normal NECK: normal RESPIRATORY: normal, CARDIOVASCULAR: normal GASTRO-INTESTINAL: normal, NEUROLOGICAL: still occasional some dizziness and migraine headcahes MUSCULOSKELETAL: Back pain -low, shoulder is good now SKIN: some dry skin and itching PSYCHIATRIC: mild depression LIBIDO: not asked SEXUAL-REPRODUCTIVE: not asked All other systems: non-contributory PHYSICAL EXAM: BP 120/77 Pulse 72 Ht 162.6 cm (5' 4) Wt 84.6 kg (186 lb 6.4 oz) SpO2 96% BMI 32 kg/m2 March 23, 2018 General: alert, in no acute distress, obese Head: normocephalic, atraumatic Nose: no active bleeding or secretions, no deformity, no mass no swelling, Eyes: JOSE A, extra occular movements normal Oropharynx: Lips, mucosa, and tongue normal, Neck: no palpable mass or nodes, supple, no JVD Thyroid: surgically removed Heart: RRR without murmur, gallop, or rubs. No ectopy Lungs: Lungs clear to auscultation. No wheezing, rhonchi, rales Abdomen: soft, non-tender, positive bowel sounds Extremities: normal exam of the extremities, no edema present, no deformities Neuro: Awake, alert and oriented x 3, No involuntary motions. and Reflexes symmetrical Skin: color, texture, turgor normal, no rashes or lesions DATA: Component Latest Ref Rng AND Units 08/08/2016 Thyroglobulin 0.8 - 49.0 ng/mL <0.2 (L) TG Antibody Screen <14.4 IU/mL 3.6 TSH 0.400 - 5.500 uU/mL 0.209 (L) Free T4 0.9 - 1.7 ng/dL 2.2 (H) Vitamin D 25 Hydroxy 31.0 - 80.0 ng/mL 40.0 Component Latest Ref Rng 03/19/2015 Thyroglobulin 0.8 - 49.0 ng/mL <0.2 (L) TG Antibody Screen <14.4 IU/mL 1.6 Vitamin D 25 Hydroxy 31.0 - 80.0 ng/mL 21.9 (L) TSH 0.400 - 5.500 uU/mL 3.020 Free T4 0.7 - 1.8 ng/dL 1.3 Pathology report obtain: Outside lab: 05/26/13: Rt thyroid lobectomy: Thyroid cancer summary; Tumor size = 4.5 cm Histology: Papillary Variant: macrofollicular Cytomorphology: classical Margins: uninvolved Tumor capsule: no distinct capsule seen Lymph-vascular invasion: not identified Perineurial invasion: not identified Extrathyroidal extension: not identified Lt sided thyroid surgery 07/14/2013: which showed the cancer is well differentiated thyroid cancer with a maximum tumor dimension of 0.26 cm, no local/lymph/vascular invasion, Component Latest Ref Rn 12/01/2013 TG Antibody Screen <14.4 IU/mL 1.5 Thyroglobulin 0.8 - 49.0 ng/mL 0.7 (L) Free T4 0.7 - 1.8 ng/dL 1.4 TSH 0.400 - 5.500 uU/mL 4.590 Component Latest Ref Rn 06/13/2013 WBC 3.70 - 11.00 k/uL 30.18 (H) RBC 3.90 - 5.20 m/uL 4.50 Hemoglobin 11.5 - 15.5 g/dL 13.7 Hematocrit 36.0 - 46.0 % 42.6 MCV 80.0 - 100.0 fL 94.7 MCH 26.0 - 34.0 pG 30.4 MCHC 30.5 - 36.0 g/dL 32.2 RDW-CV 11.5 - 15.0 % 14.1 Platelet Count 150 - 400 k/uL 334 MPV 9.0 - 12.7 fL 13.4 (H) Neut% 39.5 - 74.0 % 79.5 (H) Abs Neut (ANC) 1.45 - 7.50 k/uL 23.99 (H) Lymph% 15.9 - 47.3 % 13.7 (L) Abs Lymph 1.00 - 4.00 k/uL 4.13 (H) [place]% 0.0 - 12.0 % 6.0 Abs [place] 0.00 - 0.86 k/uL 1.81 (H) Eosin% 0.0 - 6.6 % 0.8 Abs Eosin 0.00 - 0.45 k/uL 0.24 Baso% 0.0 - 1.2 % 0.0 Abs Baso 0.00 - 0.10 k/uL 0.00 Nucleated Reds 0 /100 WBC 0.2 (H) Absolute nRBC 0.07 Giant Platelets Occasional Polychromasia Slight Platelet Estimate Platelet estimate adequate Diff Type Manual Diff Sodium, Whole Blood (iSTAT) 132 - 148 mmol/L 137 Potassium, Whole Blood (iSTAT) 3.5 - 5.0 mmol/L 3.9 Chloride, Whole Blood (iSTAT) 98 - 110 mmol/L 103 Ionized Calcium, WB (iSTAT) 1.08 - 1.30 mmol/L 1.18 TCO2, Whole Blood (iSTAT) 23 - 32 mmol/L 26 Glucose, Whole Blood (iSTAT) 65 - 100 mg/dL 106 (H) BUN, Whole Blood (iSTAT) 8 - 25 mg/dL 16 Creatinine, Whole Blood (iSTAT) 0.70 - 1.40 mg/dL 1.10 Anion Gap, Whole Blood (iSTAT) 0 - 15 mmol/L 8 eGFR- >60 eGFR-All Other Races 52 Thyroglobulin 0.8 - 49.0 ng/mL 47.2 TG Antibody Screen <14.4 IU/mL 1.6 RADIOLOGY: US Thyroid was not done after thyroid surgery. ASSESSMENT: Ms. Murray is a 57 year old woman came for follow up visit regarding Hypothyroidism, Thyroid Ca and few other medical issues as follows. RECOMMENDATIONS: (C73) Thyroid cancer (HCC) (primary encounter diagnosis) Comment: pathophysiology AND treatment options discussed. TSH and Tg goal discussed. Monitor Tg by lab and monitor lymph nodes by neck US. Plan: TSH BLD, T4 FREE/FREE THYROX, THYROGLOBULIN BLD, US NECK (POC) ENDO USE ONLY (E89.0) Postoperative hypothyroidism Comment: pathophysiology AND treatment options discussed. check level AND Rx as needed. Plan: TSH BLD, T4 FREE/FREE THYROX (I10) Essential hypertension Comment: clinically stable on current Rx. On DIA-I. continue current Rx. Plan: TSH BLD (E66.8) Constitutional obesity Comment: pathophysiology AND treatment options discussed. Exclude hypothyroidism. Diet, exercise and food supplement discussed. Plan: TSH BLD (R53.83) Lack of energy Comment: etiology not clear. optimize thyroid Rx, Plan: TSH BLD (R73.03) Prediabetes Comment: pathophysiology AND treatment options discussed. Check Hba1c. Diet, exercise and food supplement discussed. Plan: HEMOGLOBIN A1C (POC) José Luis Shrestha MD March 23, 2018 CNOV Observed: 03/23/2018 Status: COMPLETED Source: [place] 3:45 PM [facility] REPOSITORY Office Visit (ENDMED) DAYANARA MURRAY ([id number]) 1960 F CHT Date Time Provider Department 03/23/18 3:45 PM JOSÉ LUIS SHRESTHA During your visit today, we recorded the following information about you: Pulse Blood pressure Weight Height 72/minute 120/77 84.6 kg 1.626 m José Luis Shrestha MD 05/04/2018 9:15 PM Signed Last Visit: March 23, 2017 Reason for follow up: Thyroid Ca HISTORY OF PRESENT ILLNESS; Ms. Murray is a 57 year old woman came for follow up visit regarding Thyroid Ca . She was initially diagnosed with a thyroid disorder in 2008, when she went for physical exam and found to have Rt sided thyroid nodule, s/p FNA showed benign. She lost follow up one more year and then when she went 2 years after that her nodule on the Rt side has enlarged and she went surgery directly, s/p Rt lobectomy in May 2013, initially frozen section showed no cancer so total thyroidectomy not cali, however, final pathology showed cancer, so she underwent total thyroidectomy in jul 2013. S/P I-131 rx in January 2014. March 19, 2015: didn't come for >1yr since the I-131 Rx. No labs, feeling good, sometime she feels constipation. On metformin for DM- 2 since 2012. December 04, 2015: having some trouble with the Rt shoulder going to physical therapy and now feels better, lost some weight by cutting back in the bread and pop portion, not doing any exercise, planning to get a bicycle, eating more salad, so no more constipation. August 05, 2016: concerned about hair loss, and also hot flashes, stress at home, s/p shoulder surgery in Jun 2016. Last thyroid cancer related labs were done in December 2015. Last TSH was in Apr 2016 and we adjusted her LT4 dose. No new labs since then. Last Tg was from December 2015 and was <1 (outside lab). March 23, 2017: emotional eater, was watching diet and lost some weight but now gained it back. Currently on : 137 mcg of LT4 and doing well, no complaints, lot of stress in the family, her mother leaves with her, her son leaves with her, she has custody of her grand kids, March 23, 2018: had reaction shrimp since last visit, otherwise, OK, still on 137 mcg LT4, and doing well, no concern, no complaints, Severity, modifying factors, context and associated signs and symptoms are as follows: March 23, 2018 ? Thyroid pain: no ? Mass effect: no difficulty swallowing ? Energy: still get tired easily ? Sleep: still Restless 2-3 times going to bathroom ? Temperature Intolerance: usually mild heat intol ? 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 GI: regular ? Weight: lost some and gain back ? Eyes: stable, OK ? Memory: not as good as before ? Diaphoresis: normal no more hot flashes ? Skin: no sig changes ? Neuro: still occasional migraine headaches, dizziness ? History of radiation exposure to head or neck area? yes: I-131 Rx in January 2014 ? History of thyroid disorder or thyroid cancer in the family: no DM-2: Dx = 2010, Her PCP started telling her that she is prediabetic. Currently on one metformin XR 500 mg in the AM. Not Watching diet and not doing exercise. Monitors blood sugar 2 times a week: AM: 98-105, evenin Eye exam: Aug 2017: no retinopathy Vacc: declined, one took then she got sick, considering to start taking again after discussion Foot exam: by PCP in December 2017 Last diabetic education: 2014 PAST MEDICAL HISTORY Diagnosis Date - Backache, unspecified - Diabetes (HCC) - Dysthymic disorder Depression (non-psychotic) - Esophageal reflux - Essential hypertension, malignant - Headache(784.0) - Hyperglycemia - Hypopotassemia - Iron deficiency anemia secondary to blood loss (chronic) - Nontoxic uninodular goiter - Other malaise and fatigue - Pain in joint, site unspecified - Pure hypercholesterolemia - Rosacea - Sciatica - Unspecified vitamin D deficiency - Urinary frequency PAST SURGICAL HISTORY Procedure Laterality Date - COLONOSCOP W/ OR W/O [facility] SPEC 04-25-16 - HYSTERECTOMY HX 2006 partial hysterectomy-thinks one ovary left - LAPAROSCOPY, SURGICAL, SPLENECTOMY 09-12-11 - PAST SURGICAL HISTORY OF 2010 Gall Bladder - SHOULDER SURGERY HX Right 07/02/2016 [facility] [place] - THYROID LOBECTOMY,UNILAT 05-26-13 RIGHT - THYROIDECTOMY POST PREV THYR SURG 07-14-13 LEFT--COMPLETION FAMILY HISTORY Problem Relation Age of Onset - Heart Father [place] - COPD Sister - Diabetes Other Nephew - Cancer Sister cervical - Diabetes Sister - Hypertension Sister Family and social history reviewed and updated in the system. SOCIAL HISTORY Social History Substance Use Topics - Smoking status: Former Smoker Years: 10.00 Types: Cigarettes Quit date: 07/03/2001 - Smokeless tobacco: Never Used Comment: Pt smoked 2 packs a week for 10 years. - Alcohol use Yes Comment: seldom Current Outpatient Prescriptions: levothyroxine (SYNTHROID) 137 mcg tablet TAKE 1 TABLET BY MOUTH DAILY BEFORE BREAKFAST. Disp: 90 tablet Rfl: 3 lisinopril (ZESTRIL, PRINIVIL) 10 mg tablet Take 10 mg by mouth once daily. Disp: Rfl: metFORMIN ER (GLUCOPHAGE XR) 500 mg 24 hr tablet Take 1 tablet by mouth daily with breakfast. Disp: 90 tablet Rfl: 3 ASCORBIC ACID (VITAMIN C ORAL) Take 500 mg by mouth once daily. Disp: Rfl: ATENOLOL 25 MG TAB Take one(1) tablet daily. Disp: Rfl: 0 predniSONE (DELTASONE) 20 mg tablet Take 1 tablet by mouth once daily. (Patient not taking: Reported on 03/23/2018 ) Disp: 5 tablet Rfl: 0 docusate sodium (COLACE) 100 mg capsule Take 1 capsule by mouth twice daily. (Patient not taking: Reported on 03/23/2018 ) Disp: 60 capsule Rfl: 1 ibuprofen (MOTRIN) 600 mg tablet Take 1 tablet by mouth every 6 hours as needed. FOR PAIN. (Patient not taking: Reported on 03/23/2018 ) Disp: 30 tablet Rfl: 1 cholecalciferol (VITAMIN D-3) 2,000 unit tablet Take 4,000 Units by mouth once daily. Disp: Rfl: Garlic 1,000 mg cap Take 1 tablet by mouth once daily. Disp: Rfl: NAPROXEN SODIUM (ALEVE ORAL) Take 1 tablet by mouth as needed. Disp: Rfl: No current facility-administered medications for this visit. ALLERGIES ALLERGIES Allergen Reactions - Adhesive Mental Status Change, Rash Blisters - Horse Hair And Dand* Other: See Comments Had testing - Morphine Hcl Other: See Comments Pulse dropped - Seasonal Allergies Other: See Comments Sneezing, itchy eyes, watery eyes REVIEW OF SYSTEMS: March 23, 2018 SYSTEMIC: still low energy, fluctuating weight EYES: normal NECK: normal RESPIRATORY: normal, CARDIOVASCULAR: normal GASTRO-INTESTINAL: normal, NEUROLOGICAL: still occasional some dizziness and migraine headcahes MUSCULOSKELETAL: Back pain -low, shoulder is good now SKIN: some dry skin and itching PSYCHIATRIC: mild depression LIBIDO: not asked SEXUAL-REPRODUCTIVE: not asked All other systems: non-contributory PHYSICAL EXAM: BP 120/77 Pulse 72 Ht 162.6 cm (5' 4) Wt 84.6 kg (186 lb 6.4 oz) SpO2 96% BMI 32 kg/m2 March 23, 2018 General: alert, in no acute distress, obese Head: normocephalic, atraumatic Nose: no active bleeding or secretions, no deformity, no mass no swelling, Eyes: JOSE A, extra occular movements normal Oropharynx: Lips, mucosa, and tongue normal, Neck: no palpable mass or nodes, supple, no JVD Thyroid: surgically removed Heart: RRR without murmur, gallop, or rubs. No ectopy Lungs: Lungs clear to auscultation. No wheezing, rhonchi, rales Abdomen: soft, non-tender, positive bowel sounds Extremities: normal exam of the extremities, no edema present, no deformities Neuro: Awake, alert and oriented x 3, No involuntary motions. and Reflexes symmetrical Skin: color, texture, turgor normal, no rashes or lesions DATA: Component Latest Ref Rng AND Units 08/08/2016 Thyroglobulin 0.8 - 49.0 ng/mL <0.2 (L) TG Antibody Screen <14.4 IU/mL 3.6 TSH 0.400 - 5.500 uU/mL 0.209 (L) Free T4 0.9 - 1.7 ng/dL 2.2 (H) Vitamin D 25 Hydroxy 31.0 - 80.0 ng/mL 40.0 Component Latest Ref Rng 03/19/2015 Thyroglobulin 0.8 - 49.0 ng/mL <0.2 (L) TG Antibody Screen <14.4 IU/mL 1.6 Vitamin D 25 Hydroxy 31.0 - 80.0 ng/mL 21.9 (L) TSH 0.400 - 5.500 uU/mL 3.020 Free T4 0.7 - 1.8 ng/dL 1.3 Pathology report obtain: Outside lab: 05/26/13: Rt thyroid lobectomy: Thyroid cancer summary; Tumor size = 4.5 cm Histology: Papillary Variant: macrofollicular Cytomorphology: classical Margins: uninvolved Tumor capsule: no distinct capsule seen Lymph-vascular invasion: not identified Perineurial invasion: not identified Extrathyroidal extension: not identified Lt sided thyroid surgery 07/14/2013: which showed the cancer is well differentiated thyroid cancer with a maximum tumor dimension of 0.26 cm, no local/lymph/vascular invasion, Component Latest Ref Rng 12/01/2013 TG Antibody Screen <14.4 IU/mL 1.5 Thyroglobulin 0.8 - 49.0 ng/mL 0.7 (L) Free T4 0.7 - 1.8 ng/dL 1.4 TSH 0.400 - 5.500 uU/mL 4.590 Component Latest Ref Rng 06/13/2013 WBC 3.70 - 11.00 k/uL 30.18 (H) RBC 3.90 - 5.20 m/uL 4.50 Hemoglobin 11.5 - 15.5 g/dL 13.7 Hematocrit 36.0 - 46.0 % 42.6 MCV 80.0 - 100.0 fL 94.7 MCH 26.0 - 34.0 pG 30.4 MCHC 30.5 - 36.0 g/dL 32.2 RDW-CV 11.5 - 15.0 % 14.1 Platelet Count 150 - 400 k/uL 334 MPV 9.0 - 12.7 fL 13.4 (H) Neut% 39.5 - 74.0 % 79.5 (H) Abs Neut (ANC) 1.45 - 7.50 k/uL 23.99 (H) Lymph% 15.9 - 47.3 % 13.7 (L) Abs Lymph 1.00 - 4.00 k/uL 4.13 (H) [place]% 0.0 - 12.0 % 6.0 Abs [place] 0.00 - 0.86 k/uL 1.81 (H) Eosin% 0.0 - 6.6 % 0.8 Abs Eosin 0.00 - 0.45 k/uL 0.24 Baso% 0.0 - 1.2 % 0.0 Abs Baso 0.00 - 0.10 k/uL 0.00 Nucleated Reds 0 /100 WBC 0.2 (H) Absolute nRBC 0.07 Giant Platelets Occasional Polychromasia Slight Platelet Estimate Platelet estimate adequate Diff Type Manual Diff Sodium, Whole Blood (iSTAT) 132 - 148 mmol/L 137 Potassium, Whole Blood (iSTAT) 3.5 - 5.0 mmol/L 3.9 Chloride, Whole Blood (iSTAT) 98 - 110 mmol/L 103 Ionized Calcium, WB (iSTAT) 1.08 - 1.30 mmol/L 1.18 TCO2, Whole Blood (iSTAT) 23 - 32 mmol/L 26 Glucose, Whole Blood (iSTAT) 65 - 100 mg/dL 106 (H) BUN, Whole Blood (iSTAT) 8 - 25 mg/dL 16 Creatinine, Whole Blood (iSTAT) 0.70 - 1.40 mg/dL 1.10 Anion Gap, Whole Blood (iSTAT) 0 - 15 mmol/L 8 eGFR- >60 eGFR-All Other Races 52 Thyroglobulin 0.8 - 49.0 ng/mL 47.2 TG Antibody Screen <14.4 IU/mL 1.6 RADIOLOGY: US Thyroid was not done after thyroid surgery. ASSESSMENT: Ms. Murray is a 57 year old woman came for follow up visit regarding Hypothyroidism, Thyroid Ca and few other medical issues as follows. RECOMMENDATIONS: (C73) Thyroid cancer (HCC) (primary encounter diagnosis) Comment: pathophysiology AND treatment options discussed. TSH and Tg goal discussed. Monitor Tg by lab and monitor lymph nodes by neck US. Plan: TSH BLD, T4 FREE/FREE THYROX, THYROGLOBULIN BLD, US NECK (POC) ENDO USE ONLY (E89.0) Postoperative hypothyroidism Comment: pathophysiology AND treatment options discussed. check level AND Rx as needed. Plan: TSH BLD, T4 FREE/FREE THYROX (I10) Essential hypertension Comment: clinically stable on current Rx. On DIA-I. continue current Rx. Plan: TSH BLD (E66.8) Constitutional obesity Comment: pathophysiology AND treatment options discussed. Exclude hypothyroidism. Diet, exercise and food supplement discussed. Plan: TSH BLD (R53.83) Lack of energy Comment: etiology not clear. optimize thyroid Rx, Plan: TSH BLD (R73.03) Prediabetes Comment: pathophysiology AND treatment options discussed. Check Hba1c. Diet, exercise and food supplement discussed. Plan: HEMOGLOBIN A1C (POC) José Luis Shrestha MD March 23, 2018 Referring Provider: JOSÉ LUIS SHRESTHA [[id number]] Allergies As of Date: 03/23/2018 Noted Allergy Reaction ADHESIVE 08/05/2016 1 - Mental Status Change 2 - Rash Comments: Blisters HORSE HAIR AND DANDER 08/22/2013 14 - Other: See Comments Comments: Had testing MORPHINE HCL 12/04/2015 14 - Other: See Comments Comments: Pulse dropped SEASONAL ALLERGIES 08/22/2013 14 - Other: See Comments Comments: Sneezing, itchy eyes, watery eyes Date Reviewed: 03/23/2018 Reviewed by: Georgia Lutz Ma - Fully Assessed Reason for Visit: Yearly Exam [187] Cmt: thyroid, doing well Primary Visit Diagnosis:Thyroid cancer (HCC) [C73] Other Visit Diagnoses:Hypothyroidism, unspecified type [E03.9] Controlled type 2 diabetes mellitus without complication, without long-term current use of insulin (HCC) [E11.9] Essential hypertension [I10] Constitutional obesity [E66.8] Vitamin D deficiency [E55.9] Order(s):levothyroxine (SYNTHROID) 137 mcg tabletTake 1 tablet by mouth daily before breakfast.Disp: 90 tabletRfl: 3 TSH BLD [SQTSH] Order #: [id number] FUTURE T4 FREE/FREE THYROX [SQFT4] Order #: [id number] FUTURE THYROGLOBULIN BLD [SQTG] Order #: [id number] FUTURE US HEAD/NECK SOFT TISSUE OTHER [9019142] Order #: [id number] FUTURE VITAMIN D 25 HYDROXY [SQVITD] Order #: [id number] FUTURE Prescriptions as of 03/23/2018 Sig: LEVOTHYROXINE 137 MCG TABLET Take 1 tablet by mouth daily * LISINOPRIL 10 MG TABLET Take 10 mg by mouth once syed* METFORMIN ER 500 MG TABLET,EX* Take 1 tablet by mouth daily * * VITAMIN C ORAL Take 500 mg by mouth once brigido* * ATENOLOL 25 MG TABLET Take one(1) tablet daily. PREDNISONE 20 MG TABLET Take 1 tablet by mouth once d* Patient not taking: Reported on 03/23/2018 DOCUSATE SODIUM 100 MG CAPSULE Take 1 capsule by mouth twice* Patient not taking: Reported on 03/23/2018 IBUPROFEN 600 MG TABLET Take 1 tablet by mouth every * Patient not taking: Reported on 03/23/2018 CHOLECALCIFEROL (VITAMIN D3) * Take 4,000 Units by mouth onc* GARLIC 1,000 MG CAPSULE Take 1 tablet by mouth once d* ALEVE ORAL Take 1 tablet by mouth as nee* Problem List As Of Date 03/23/2018 Noted Resolved NONTOX UNINODULAR GOITER [E04.1] INVALID FOR* Splenomegaly [R16.1] INVALID FOR* Biliary dyskinesia [K82.8] INVALID FOR*08/03/2017 Chronic cholecystitis [K81.1] INVALID FOR*08/03/2017 Thyroid cancer [C73] INVALID FOR* Essential hypertension [I10] INVALID FOR* Personal history of colonic polyps [Z86.010] INVALID FOR* Flank pain [R10.9] INVALID FOR* Pelvic mass [R19.00] INVALID FOR* More... Controlled type 2 diabetes mellitus without com*INVALID FOR* Prescriptions ordered this encounter Disp Refills Start End LEVOTHYROXINE 137 MCG TABLET 90 t* 3 03/23/2018 Route: ORAL Sig: Take 1 tablet by mouth daily before breakfast. Medications Discontinued During This Encounter levothyroxine (SYNTHROID) 137 mcg ta* 90 t* 3 04/21/2017 03/23/2018 Sig: TAKE 1 TABLET BY MOUTH DAILY BEFORE BREAKFAST. Disc: Reason for discontinue is not on file. Disposition: Return in about 1 year (around 03/23/2019). Follow-up and Disposition History Recorded Encounter Status:Closed by JOSÉ LUIS SHRESTHA MD on 05/04/18 GROUP A STREP BY Collected: 01/21/2018 Status: F Source: [place] PCR 1:44 PM [facility] REPOSITORY TYPE CODE TESTS RESULT OUT OF REFERENCE UNITS RANGE LAB GASSRC Throat Swab GAS Specimen Source LAB PCRGAS Negative for Group A Strep Group A PCR Streptococcus by PCR. Result Comment: This test was developed and its performance characteristics determined by [facility] [place] ([facility] It has not been cleared or approved by the FDA. [facility] is regulated under CLIA as qualified to perform high-complexity testing. This test is used for clinical purposes. It should not be regarded as inv estigational or for research. Performed By: #### GASPCR #### [facility] [address] [place], [place] [address] PROGRESS Observed: 01/21/2018 Status: COMPLETED Source: [place] 1:38 PM [facility] REPOSITORY HNO ID: [id number] Author: Eden Dangelo Service: (none) Author Type: Nurse Practitioner Type: Progress Notes Filed: 01/21/2018 2:43 PM Note Text: Subjective The history is provided by the patient. No hourly sign language interpreter was used. Sore Throat Associated symptoms include diarrhea. Pertinent negatives include no abdominal pain, congestion, coughing, ear pain, headaches, shortness of breath or vomiting. HPI Dayanara Murray is a 57 year old female who presents today for CC of fever This started 2 days ago. She is also having a sore throat, diarrhea, headache and chills. Symptoms are worsened by nothing She has tried theraflu, and tylenol. Risk factors none known. PMH not significant. BP 126/82 Pulse 84 Temp 36.9 ?C (98.4 ?F) (Tympanic) Wt 82.1 kg (181 lb) SpO2 97% BMI 30.12 kg/m? ALLERGIES Allergen Reactions - Adhesive Mental Status Change, Rash Blisters - Horse Hair And Dand* Other: See Comments Had testing - Morphine Hcl Other: See Comments Pulse dropped - Seasonal Allergies Other: See Comments Sneezing, itchy eyes, watery eyes ACTIVE PROBLEM LIST Nontoxic Uninodular Goiter Splenomegaly Thyroid Cancer (Hcc) Essential Hypertension Personal History of Colonic Polyps Flank Pain Pelvic Mass Controlled Type 2 Diabetes Mellitus Without Complication, Without Long-Term Current Use of Insulin (Hcc) Family History Problem Relation Age of Onset - Heart Father [place] - COPD Sister - Diabetes Other Nephew - Cancer Sister cervical - Diabetes Sister - Hypertension Sister Social History Marital status: Single Spouse name: Years of education: Number of children: Occupational History Occupation Employer Comment [employer] Social History Main Topics Smoking status: Former Smoker Packs/day: 0.00 Years: 10.00 Types: Cigarettes Quit date: 07/03/2001 Smokeless tobacco: Never Used Comment: Pt smoked 2 packs a week for 10 years. Alcohol use: Yes Comment: seldom Drug use: No Sexual activity: Yes control/protection: Surgical Comment: hysterectomy PAST MEDICAL HISTORY Diagnosis Date - Backache, unspecified - Diabetes (HCC) - Dysthymic disorder Depression (non-psychotic) - Esophageal reflux - Essential hypertension, malignant - Headache(784.0) - Hyperglycemia - Hypopotassemia - Iron deficiency anemia secondary to blood loss (chronic) - Nontoxic uninodular goiter - Other malaise and fatigue - Pain in joint, site unspecified - Pure hypercholesterolemia - Rosacea - Sciatica - Unspecified vitamin D deficiency - Urinary frequency Review of Systems Constitutional: Positive for chills and fever (101.8). Negative for malaise/fatigue. HENT: Positive for sore throat. Negative for congestion, ear pain and sinus pain. Respiratory: Negative for cough, sputum production, shortness of breath and wheezing. Cardiovascular: Negative for chest pain. Gastrointestinal: Positive for diarrhea. Negative for abdominal pain, constipation, nausea and vomiting. Musculoskeletal: Negative for myalgias. Skin: Negative for rash. Neurological: Negative for headaches. Objective Physical Exam Constitutional: She is well-developed, well-nourished, and in no distress. HENT: Head: Normocephalic and atraumatic. Right Ear: External ear and ear canal normal. Tympanic membrane is not injected, not erythematous, not retracted and not bulging. A middle ear effusion (serous) is present. Left Ear: External ear and ear canal normal. Tympanic membrane is not injected, not erythematous, not retracted and not bulging. A middle ear effusion (serous) is present. Nose: Nose normal. Right sinus exhibits no maxillary sinus tenderness and no frontal sinus tenderness. Left sinus exhibits no maxillary sinus tenderness and no frontal sinus tenderness. Mouth/Throat: Uvula is midline and mucous membranes are normal. Posterior oropharyngeal edema and posterior oropharyngeal erythema (moderate) present. No oropharyngeal exudate or tonsillar abscesses. Eyes: Conjunctivae and EOM are normal. Pupils are equal, round, and reactive to light. Neck: Normal range of motion. Cardiovascular: Normal rate, regular rhythm and normal heart sounds. Pulmonary/Chest: Effort normal and breath sounds normal. No respiratory distress. She has no wheezes. She has no rales. Lymphadenopathy: Head (right side): No submental, no submandibular, no tonsillar, no preauricular and no posterior auricular adenopathy present. Head (left side): No submental, no submandibular, no tonsillar, no preauricular and no posterior auricular adenopathy present. She has cervical adenopathy. Right cervical: Superficial cervical adenopathy present. No posterior cervical adenopathy present. Left cervical: Superficial cervical adenopathy present. No posterior cervical adenopathy present. Right: No supraclavicular adenopathy present. Left: No supraclavicular adenopathy present. Skin: Skin is warm and dry. Psychiatric: Affect normal. Nursing note and vitals reviewed. ASSESSMENT/PLAN: 1. Sore throat - ICD9: 462, ICD10: J02.9 (primary diagnosis) - suspect viral - Rapid Strep negative in the office today - overnight throat culture pending, Only call if Strep culture is positive. - Discussed supportive care treatment with fluids, rest and analgesia. - The patient may also use warm salt water gargles, throat lozenges and/or OTC throat spray as needed. - The patient should follow up in one week if symptoms persist or worsen - Call back if drooling, increased temperature, symptoms of dehydration and/or still sick in one week - RAPID STREP TEST B/O - GROUP A STREPTOCOCCUS BY PCR 2. Fever, unspecified fever cause - ICD9: 780.60, ICD10: R50.9 Tylenol (generic acetaminophen) 500 mg-2 tabs every 8 hrs. as needed for fever and aches Ibuprofen 600 mg (3-200mg tablets) every 6 hours 3. Flu-like symptoms - ICD9: 780.99, ICD10: R68.89 Treat symptoms You need to rest as much as possible. Motrin or Tylenol as needed for fever or pain as discussed Drink at least 8 glasses of fluids per day that aren't caffeinated. Eat a nutritious diet. If no improvement to PCP, for worsening symptoms to ER * Seek medical care immediately, call 911, go to ER if you have chest pain, difficulty breathing, shortness of breath, inability to swallow. Diagnosis and treatment plan were discussed and questions were answered to the patient's satisfaction. Pt acknowledged understanding of concepts and follow up plan. Specific signs and symptoms that would indicate the need for higher level of care were discussed in detail warranting prompt ER evaluation. Eden Dangelo APRN.[employer] CNOV Observed: 01/21/2018 Status: COMPLETED Source: [place] [address]:30 PM [facility] REPOSITORY Office Visit ([facility]) DAYANARA MURRAY ([id number]) 1960 F T Date Time Provider Department 01/21/18 1:30 PM EDEN DANGELO ([facility]) [facility] During your visit today, we recorded the following information about you: Temperature Pulse Blood pressure Weight 98.4 degrees 84/minute 126/82 82.1 kg Eden Dangelo APRN.CNP 01/21/2018 2:43 PM Signed Subjective The history is provided by the patient. No hourly sign language interpreter was used. Sore Throat Associated symptoms include diarrhea. Pertinent negatives include no abdominal pain, congestion, coughing, ear pain, headaches, shortness of breath or vomiting. HPI Dayanara Murray is a 57 year old female who presents today for CC of fever This started 2 days ago. She is also having a sore throat, diarrhea, headache and chills. Symptoms are worsened by nothing She has tried theraflu, and tylenol. Risk factors none known. PMH not significant. BP 126/82 Pulse 84 Temp 36.9 ?C (98.4 ?F) (Tympanic) Wt 82.1 kg (181 lb) SpO2 97% BMI 30.12 kg/m? ALLERGIES Allergen Reactions - Adhesive Mental Status Change, Rash Blisters - Horse Hair And Dand* Other: See Comments Had testing - Morphine Hcl Other: See Comments Pulse dropped - Seasonal Allergies Other: See Comments Sneezing, itchy eyes, watery eyes ACTIVE PROBLEM LIST Nontoxic Uninodular Goiter Splenomegaly Thyroid Cancer (Hcc) Essential Hypertension Personal History of Colonic Polyps Flank Pain Pelvic Mass Controlled Type 2 Diabetes Mellitus Without Complication, Without Long-Term Current Use of Insulin (Hcc) Family History Problem Relation Age of Onset - Heart Father [place] - COPD Sister - Diabetes Other Nephew - Cancer Sister cervical - Diabetes Sister - Hypertension Sister Social History Marital status: Single Spouse name: Years of education: Number of children: Occupational History Occupation Employer Comment [employer] WORK[employer] Social History Main Topics Smoking status: Former Smoker Packs/day: 0.00 Years: 10.00 Types: Cigarettes Quit date: 07/03/2001 Smokeless tobacco: Never Used Comment: Pt smoked 2 packs a week for 10 years. Alcohol use: Yes Comment: seldom Drug use: No Sexual activity: Yes control/protection: Surgical Comment: hysterectomy PAST MEDICAL HISTORY Diagnosis Date - Backache, unspecified - Diabetes (HCC) - Dysthymic disorder Depression (non-psychotic) - Esophageal reflux - Essential hypertension, malignant - Headache(784.0) - Hyperglycemia - Hypopotassemia - Iron deficiency anemia secondary to blood loss (chronic) - Nontoxic uninodular goiter - Other malaise and fatigue - Pain in joint, site unspecified - Pure hypercholesterolemia - Rosacea - Sciatica - Unspecified vitamin D deficiency - Urinary frequency Review of Systems Constitutional: Positive for chills and fever (101.8). Negative for malaise/fatigue. HENT: Positive for sore throat. Negative for congestion, ear pain and sinus pain. Respiratory: Negative for cough, sputum production, shortness of breath and wheezing. Cardiovascular: Negative for chest pain. Gastrointestinal: Positive for diarrhea. Negative for abdominal pain, constipation, nausea and vomiting. Musculoskeletal: Negative for myalgias. Skin: Negative for rash. Neurological: Negative for headaches. Objective Physical Exam Constitutional: She is well-developed, well-nourished, and in no distress. HENT: Head: Normocephalic and atraumatic. Right Ear: External ear and ear canal normal. Tympanic membrane is not injected, not erythematous, not retracted and not bulging. A middle ear effusion (serous) is present. Left Ear: External ear and ear canal normal. Tympanic membrane is not injected, not erythematous, not retracted and not bulging. A middle ear effusion (serous) is present. Nose: Nose normal. Right sinus exhibits no maxillary sinus tenderness and no frontal sinus tenderness. Left sinus exhibits no maxillary sinus tenderness and no frontal sinus tenderness. Mouth/Throat: Uvula is midline and mucous membranes are normal. Posterior oropharyngeal edema and posterior oropharyngeal erythema (moderate) present. No oropharyngeal exudate or tonsillar abscesses. Eyes: Conjunctivae and EOM are normal. Pupils are equal, round, and reactive to light. Neck: Normal range of motion. Cardiovascular: Normal rate, regular rhythm and normal heart sounds. Pulmonary/Chest: Effort normal and breath sounds normal. No respiratory distress. She has no wheezes. She has no rales. Lymphadenopathy: Head (right side): No submental, no submandibular, no tonsillar, no preauricular and no posterior auricular adenopathy present. Head (left side): No submental, no submandibular, no tonsillar, no preauricular and no posterior auricular adenopathy present. She has cervical adenopathy. Right cervical: Superficial cervical adenopathy present. No posterior cervical adenopathy present. Left cervical: Superficial cervical adenopathy present. No posterior cervical adenopathy present. Right: No supraclavicular adenopathy present. Left: No supraclavicular adenopathy present. Skin: Skin is warm and dry. Psychiatric: Affect normal. Nursing note and vitals reviewed. ASSESSMENT/PLAN: 1. Sore throat - ICD9: 462, ICD10: J02.9 (primary diagnosis) - suspect viral - Rapid Strep negative in the office today - overnight throat culture pending, Only call if Strep culture is positive. - Discussed supportive care treatment with fluids, rest and analgesia. - The patient may also use warm salt water gargles, throat lozenges and/or OTC throat spray as needed. - The patient should follow up in one week if symptoms persist or worsen - Call back if drooling, increased temperature, symptoms of dehydration and/or still sick in one week - RAPID STREP TEST B/O - GROUP A STREPTOCOCCUS BY PCR 2. Fever, unspecified fever cause - ICD9: 780.60, ICD10: R50.9 Tylenol (generic acetaminophen) 500 mg-2 tabs every 8 hrs. as needed for fever and aches Ibuprofen 600 mg (3-200mg tablets) every 6 hours 3. Flu-like symptoms - ICD9: 780.99, ICD10: R68.89 Treat symptoms You need to rest as much as possible. Motrin or Tylenol as needed for fever or pain as discussed Drink at least 8 glasses of fluids per day that aren't caffeinated. Eat a nutritious diet. If no improvement to PCP, for worsening symptoms to ER * Seek medical care immediately, call 911, go to ER if you have chest pain, difficulty breathing, shortness of breath, inability to swallow. Diagnosis and treatment plan were discussed and questions were answered to the patient's satisfaction. Pt acknowledged understanding of concepts and follow up plan. Specific signs and symptoms that would indicate the need for higher level of care were discussed in detail warranting prompt ER evaluation. MASSIEL Mazariegos APRN.CNP 01/21/2018 1:51 PM Signed ASSESSMENT/PLAN: 1. Sore throat - ICD9: 462, ICD10: J02.9 (primary diagnosis) - suspect viral - Rapid Strep negative in the office today - overnight throat culture pending, Only call if Strep culture is positive. - Discussed supportive care treatment with fluids, rest and analgesia. - The patient may also use warm salt water gargles, throat lozenges and/or OTC throat spray as needed. - The patient should follow up in one week if symptoms persist or worsen - Call back if drooling, increased temperature, symptoms of dehydration and/or still sick in one week - RAPID STREP TEST B/O - GROUP A STREPTOCOCCUS BY PCR 2. Fever, unspecified fever cause - ICD9: 780.60, ICD10: R50.9 Tylenol (generic acetaminophen) 500 mg-2 tabs every 8 hrs. as needed for fever and aches Ibuprofen 600 mg (3-200mg tablets) every 6 hours 3. Flu-like symptoms - ICD9: 780.99, ICD10: R68.89 Treat symptoms You need to rest as much as possible. Motrin or Tylenol as needed for fever or pain as discussed Drink at least 8 glasses of fluids per day that aren't caffeinated. Eat a nutritious diet. If no improvement to PCP, for worsening symptoms to ER * Seek medical care immediately, call 911, go to ER if you have chest pain, difficulty breathing, shortness of breath, inability to swallow. Referring Provider: SELF [200] Allergies As of Date: 01/21/2018 Noted Allergy Reaction ADHESIVE 08/05/2016 1 - Mental Status Change 2 - Rash Comments: Blisters HORSE HAIR AND DANDER 08/22/2013 14 - Other: See Comments Comments: Had testing MORPHINE HCL 12/04/2015 14 - Other: See Comments Comments: Pulse dropped SEASONAL ALLERGIES 08/22/2013 14 - Other: See Comments Comments: Sneezing, itchy eyes, watery eyes Date Reviewed: 01/21/2018 Reviewed by: Eden GranadosTourist Information AssistantSam Dangelo - Fully Assessed Reason for Visit: Sore Throat [200] Cmt: sore throat, headache, fever, diarrhea, hives, chills X 3 days Primary Visit Diagnosis:Sore throat [J02.9] Other Visit Diagnoses:Fever, unspecified fever cause [R50.9] Flu-like symptoms [R68.89] Order(s):RAPID STREP TEST B/O [[id number]] Order #: [id number] GROUP A STREPTOCOCCUS BY PCR [SQGASPCR] Order #: [id number] predniSONE (DELTASONE) 20 mg tabletTake 1 tablet by mouth once daily.Disp: 5 tabletRfl: 0 Prescriptions as of 01/21/2018 Sig: DOCUSATE SODIUM 100 MG CAPSULE Take 1 capsule by mouth twice* IBUPROFEN 600 MG TABLET Take 1 tablet by mouth every * LEVOTHYROXINE 137 MCG TABLET TAKE 1 TABLET BY MOUTH DAILY * CHOLECALCIFEROL (VITAMIN D3) * Take 4,000 Units by mouth onc* LISINOPRIL 10 MG TABLET Take 10 mg by mouth once syed* GARLIC 1,000 MG CAPSULE Take 1 tablet by mouth once d* METFORMIN ER 500 MG TABLET,EX* Take 1 tablet by mouth daily * ALEVE ORAL Take 1 tablet by mouth as nee* * VITAMIN C ORAL Take 500 mg by mouth once brigido* * ATENOLOL 25 MG TABLET Take one(1) tablet daily. PREDNISONE 20 MG TABLET Take 1 tablet by mouth once d* Problem List As Of Date 01/21/2018 Noted Resolved NONTOX UNINODULAR GOITER [E04.1] INVALID FOR* Splenomegaly [R16.1] INVALID FOR* Biliary dyskinesia [K82.8] INVALID FOR*08/03/2017 Chronic cholecystitis [K81.1] INVALID FOR*08/03/2017 Thyroid cancer [C73] INVALID FOR* Essential hypertension [I10] INVALID FOR* Personal history of colonic polyps [Z86.010] INVALID FOR* Flank pain [R10.9] INVALID FOR* Pelvic mass [R19.00] INVALID FOR* More... Controlled type 2 diabetes mellitus without com*INVALID FOR* Other instructions from your clinician: ASSESSMENT/PLAN: 1. Sore throat - ICD9: 462, ICD10: J02.9 (primary diagnosis) - suspect viral - Rapid Strep negative in the office today - overnight throat culture pending, Only call if Strep culture is positive. - Discussed supportive care treatment with fluids, rest and analgesia. - The patient may also use warm salt water gargles, throat lozenges and/or OTC throat spray as needed. - The patient should follow up in one week if symptoms persist or worsen - Call back if drooling, increased temperature, symptoms of dehydration and/or still sick in one week - RAPID STREP TEST B/O - GROUP A STREPTOCOCCUS BY PCR 2. Fever, unspecified fever cause - ICD9: 780.60, ICD10: R50.9 Tylenol (generic acetaminophen) 500 mg-2 tabs every 8 hrs. as needed for fever and aches Ibuprofen 600 mg (3-200mg tablets) every 6 hours 3. Flu-like symptoms - ICD9: 780.99, ICD10: R68.89 Treat symptoms You need to rest as much as possible. Motrin or Tylenol as needed for fever or pain as discussed Drink at least 8 glasses of fluids per day that aren't caffeinated. Eat a nutritious diet. If no improvement to PCP, for worsening symptoms to ER * Seek medical care immediately, call 911, go to ER if you have chest pain, difficulty breathing, shortness of breath, inability to swallow. Prescriptions ordered this encounter Disp Refills Start End PREDNISONE 20 MG TABLET 5 ta* 0 01/21/2018 Route: ORAL Sig: Take 1 tablet by mouth once daily. Medications Discontinued During This Encounter ibuprofen (MOTRIN) 600 mg tablet 60 t* 1 11/12/2017 01/21/2018 Class: Print RX Route: ORAL Sig: Take 1 tablet by mouth every 6 hours as needed for Pain. Disc: Duplicate Entry docusate sodium (COLACE) 100 mg caps* 01/21/2018 Class: Historical Med Route: ORAL Sig: Take 100 mg by mouth once daily. Disc: Duplicate Entry CALCIUM CARBONATE/VITAMIN D3 (CALCIU* 01/21/2018 Class: Med Update Route: ORAL Sig: Take 1 tablet by mouth once daily. 1200mg/1000IU Disc: Discontinued by Patient Letter Text Eden Dangelo APRN.[facility] Ur[facility] [address] [facility] [address] Dept: [phone] 01/21/2018 Dayanara Murray [address] [place] [id number] To Whom it May Concern: This is to certify that Dayanara Murray was seen at our office for medical care. Dayanara may return to work when fever is less than 100 for 24 hours. If you have any questions please feel free to call. Sincerely: Eden Dangelo APRN.CNP Encounter Status:Closed by EDEN DANGELO CNP on 01/21/18 CBC Collected: 01/11/2018 Status: F Source: [facility] 9:45 AM [facility] REPOSITORY TYPE CODE TESTS RESULT OUT OF REFERENCE UNITS RANGE LAB WBC(LOINC) 4.60-10.80 10 3/mcL WBC 9.90 LAB RBCCT(LOINC 4.20-5.40 10 6/mcL ) RBC 4.97 LAB HGB(LOINC) 12.0-16.0 G/dL Hgb 15.2 LAB HCT(LOINC) 37.0-47.0 % Hct 44.8 LAB MCV(LOINC) 80.0-94.0 fL MCV 90.2 LAB MCH(LOINC) 27.0-31.2 pg MCH 30.5 LAB MCHC(LOINC) 33.0-37.0 G/dL MCHC 33.8 LAB RDW(LOINC) 11.5-14.5 % RDW 13.1 LAB PLT(LOINC) 130-400 10 3/mcL Platelet 366 LAB MPV(LOINC) 7.4-10.4 fL High MPV 10.6 Performed By: #### CBC, ADIFF, ANEU, LIPID, CMP, GFR, A1C #### [address] [address] .AUTO DIFF Collected: 01/11/2018 Status: F Source: [facility] 9:45 AM [facility] REPOSITORY TYPE CODE TESTS RESULT OUT OF REFERENCE UNITS RANGE LAB GUADALUPE(LOINC) 37.0-80.0 % Neutrophil % 43.5 LAB LYM(LOINC) 10.0-50.0 % Lymphocyte % 45.0 LAB MON(LOINC) 1.7-13.0 % Monocyte % 8.2 LAB EO(LOINC) 0.0-7.0 % Eosinophil % 2.3 LAB BAS(LOINC) 0.0-2.5 % Basophil % 1.0 LAB ABLYM(LOIN 0.77-3.85 10 3/mcL C) High Lymphocyte, 4.50 Absolute LAB LUIS ANTONIO(LOINC 0.15-1.00 10 3/mcL ) Monocyte, 0.80 Absolute LAB AEOS(LOINC 0.00-0.40 10 3/mcL ) Eosinophil, 0.20 Absolute LAB ABAS(LOINC 0.00-0.19 10 3/mcL ) Basophil, 0.10 Absolute Performed By: #### CBC, ADIFF, ANEU, LIPID, CMP, GFR, A1C #### [place] [address] [place], [place] [address] .NEUABS Collected: 01/11/2018 Status: F Source: [facility] 9:45 AM [facility] REPOSITORY TYPE CODE TESTS RESULT OUT OF REFERENCE UNITS RANGE LAB ANEU(LOINC) 2.85-6.16 10 3/mcL Neutrophil, 4.30 Absolute Performed By: #### CBC, ADIFF, ANEU, LIPID, CMP, GFR, A1C #### [place] [address] [place], [place] [address] LIPID Collected: 01/11/2018 Status: F Source: [employer] 9:45 AM [facility] REPOSITORY TYPE CODE TESTS RESULT OUT OF REFERENCE UNITS RANGE LAB CHOL(LOINC 131-200 mg/dL ) Cholesterol High 223 Result Comment: Cholesterol Reference Interval: Less than 200 Desirable 200-239 Borderline high risk 240 and above High risk LAB TRIG(LOINC) 40-150 mg/dL Triglycerides 128 Result Comment: Triglyceride Reference Interval: Less than 150 Normal 150-199 Borderline high risk 200-499 High risk 500 or higher Very high risk LAB HD(LOINC) 35-90 mg/dL HDL Cholesterol 48 Result Comment: HDL Reference Interval: Less than 40 Low - high risk 60 or above Optimal/lowers risk LAB LDL(LOINC) 0-130 mg/dL LDL High Cholesterol 149 Result Comment: LDL is a calculated result and requires a 12-hr fast. LDL Reference Interval: Less than 100 Optimal 100-129 Near or above optimal 130-159 Borderline high risk 160-189 High risk 190 and above Very high risk Performed By: #### CBC, ADIFF, ANEU, LIPID, CMP, GFR, A1C #### [place] [address] [place], [place] [address] CMP Collected: 01/11/2018 Status: F Source: [facility] 9:45 AM [facility] REPOSITORY TYPE CODE TESTS RESULT OUT OF REFERENCE UNITS RANGE LAB GLU(LOINC) 70-105 mg/dL Glucose High Level 129 LAB NA(LOINC) 136-146 mEq/L Sodium Level 140 LAB K(LOINC) 3.5-5.1 mEq/L Potassium Level 4.9 LAB CL(LOINC) 98-107 mEq/L Chloride 104 LAB CO2(LOINC) 22-29 mEq/L CO2 29 LAB EBAL(LOINC mEq/L ) Electrolyte Balance 7.0 LAB BUN(LOINC) 7.0-18.0 mg/dL BUN 10.9 LAB CRE(LOINC) 0.6-1.2 mg/dL Creatinine Lvl (s) 0.7 LAB BC(LOINC) 7-27 ratio BUN/Creatinine 16 Ratio LAB CA(LOINC) 8.4-10.2 mg/dL Calcium Lvl 9.5 LAB PROT(LOINC 6.0-8.3 G/dL ) Total Protein 7.3 LAB ALB(LOINC) 3.5-5.0 G/dL Albumin Level 4.3 LAB GLB(LOINC) G/dL Globulin 3.0 LAB AG(LOINC) 1.1-2.5 ratio A/G Ratio 1.4 LAB BILT(LOINC 0.2-1.0 mg/dL ) Bili Total 0.4 LAB AP(LOINC) 40-135 IU/L Alk Phos 74 LAB AST(LOINC) 10-40 IU/L AST/SGOT 20 LAB ALT(LOINC) 10-35 IU/L ALT/SGPT 21 Performed By: #### CBC, ADIFF, ANEU, LIPID, CMP, GFR, A1C #### [facility] [address] [address] .GFR Collected: 01/11/2018 Status: F Source: [facility] 9:45 AM [facility] REPOSITORY TYPE CODE TESTS RESULT OUT OF REFERENCE UNITS RANGE LAB GFRAA(LOINC ml/min/1.73 ) sqm GFR >60 Algerian Result Comment: GFR Population mean for , Non- Americans Ages 20-29 = 116 mL/min/1.73 sq.m. Ages 30-39 = 107 mL/min/1.73 sq.m. Ages 40-49 = 99 mL/min/1.73 sq.m. Ages 50-59 = 93 mL/min/1.73 sq.m. Ages 60-69 = 85 mL/min/1.73 sq.m. Ages 70+ = 75 mL/min/1.73 sq.m. Chronic Kidney Disease: Less than 60 mL/min/1.73 square meters End Stage Renal Disease: Less than 15 mL/min/1.73 square meters LAB GFRNO(LOINC) ml/min/1.73sqm GFR Non- >60 Result Comment: GFR Population mean for , Non- Americans Ages 20-29 = 116 mL/min/1.73 sq.m. Ages 30-39 = 107 mL/min/1.73 sq.m. Ages 40-49 = 99 mL/min/1.73 sq.m. Ages 50-59 = 93 mL/min/1.73 sq.m. Ages 60-69 = 85 mL/min/1.73 sq.m. Ages 70+ = 75 mL/min/1.73 sq.m. Chronic Kidney Disease: Less than 60 mL/min/1.73 square meters End Stage Renal Disease: Less than 15 mL/min/1.73 square meters Performed By: #### CBC, ADIFF, ANEU, LIPID, CMP, GFR, A1C #### [address] [address] A1C Collected: 01/11/2018 Status: F Source: [facility] 9:45 AM FOUNDATION REPOSITORY TYPE CODE TESTS RESULT OUT OF RANGE REFERENCE UNITS LAB A1C(LOINC) 4.8-5.9 % High Hgb A1c 6.3 Performed By: #### CBC, ADIFF, ANEU, LIPID, CMP, GFR, A1C #### [address] [address] CNCO Observed: 12/08/2017 Status: COMPLETED Source: [place] 12:00 AM [facility] REPOSITORY Letter Text [address] [place], [place] [address] Guerrero Carranza MD, MPH Department of Obstetrics and Gynecology/A81 Office: [phone] Appts: [phone] December 08, 2017 To whom it may concern Dayanara Leviwilliam Hudsonnger may return to work on December with no restrictions. Should you have any questions, please contact my office. Sincerely Guerrero Carranza MD, MPH CNCO Observed: 12/04/2017 Status: COMPLETED Source: [place] 12:00 AM [facility] REPOSITORY Letter Text Guerrero Carranza M.D., MPH Gynecologic Oncology [place] [address] December 04, 2017 To whom it may concern: Siri Murray is under my care after a surgical procedure. She may return to work on 12/14/2017. She must not lift anything greater than 15 pounds until after 12/24/2017. Please call us at [phone] with any questions or concerns. Sincerely, Guerrero Carranza M.D., MPH CNOV Observed: 12/02/2017 Status: COMPLETED Source: [place] 4:20 PM [facility] REPOSITORY Office Visit (GYONST) DAYANARA MURRAY ([id number]) 1960 F T Date Time Provider Department 12/02/17 4:20 PM GUERRERO CARRANZA During your visit today, we recorded the following information about you: Temperature Pulse Blood pressure Weight 97.8 degrees 70/minute 156/87 84.8 kg Height 1.651 m Guerrero Carranza MD 12/02/2017 4:57 PM Signed Gynecologic Oncology [facility] Post-Op Visit Re: Dayanara Murray [facility]#: [id number] 12/02/2017 PROBLEM: Dayanara Murray returns to the office today for postop visit. SURGERY AND DATE: 11/12/2017 - Diagnostic laparoscopy, lysis of adhesions, right salpingo-oophorectomy, excision of retroperitoneal mass superior to the bladder for a pelvic mass. PATHOLOGY: FINAL DIAGNOSIS 1. Ovary and fallopian tube, right, salpingo-oophorectomy (A) - Ovary with benign simple and surface epithelial inclusion cysts, stromal hyperthecosis, and adhesions. - Fallopian tube with no significant pathologic changes. 2. Mass, retroperitoneal supra-bladder, excision - Benign serous cystadenoma. SUBJECTIVE/INTERVAL HISTORY: Dayanraa Murray reports that she feels well. No fever or chills. No shortness of breath, cough, or chest pain. No incisional redness, swelling, or drainage. Patient reports that her appetite is good. No abdominal pain, nausea, vomiting, diarrhea, or constipation. No dysuria, gross hematuria, urinary frequency, urinary urgency, or incontinence. Her ECOG performance status is zero (fully active, able to carry on all pre-disease performance without restriction). OBJECTIVE: VITALS: BP 156/87 Pulse 70 Temp 36.6 ?C (97.8 ?F) Ht 165.1 cm (5' 5) Wt 84.8 kg (187 lb) BMI 31.12 kg/m? HEENT: Normocephalic, atraumatic, mucus membranes moist and no lesions NECK: Supple, no adenopathy; thyroid symmetric, normal size, no bruits LUNGS: Normal efforts. ABDOMEN: Abdomen soft, non-tender, no hepatosplenomegaly. Incision healing well. ASSESSMENT: 57 yr old woman with pelvic mass s/p laparoscopic surgical excision who is here today for postop follow up PLAN: 1. Postoperative restrictions were reviewed. Overall she recovered very well 2. We discussed the pathology results which came back c/w benign disease. No further treatment or surgery are needed 3. 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 I advised her to call my office with any issue or concern especially if related to the surgery Guerrero Carranza MD, MPH A letter and a copy of this office note were sent to: - Maddy Harris CNP [phone] [address] - Maddy Harris CNP (PCP) Referring Provider: GUERRERO CARRANZA [[id number]] Allergies As of Date: 12/02/2017 Noted Allergy Reaction ADHESIVE 08/05/2016 1 - Mental Status Change 2 - Rash Comments: Blisters HORSE HAIR AND DANDER 08/22/2013 14 - Other: See Comments Comments: Had testing MORPHINE HCL 12/04/2015 14 - Other: See Comments Comments: Pulse dropped SEASONAL ALLERGIES 08/22/2013 14 - Other: See Comments Comments: Sneezing, itchy eyes, watery eyes Date Reviewed: 12/02/2017 Reviewed by: Nely Hunter Ma - Fully Assessed Reason for Visit: Post Op [174] Primary Visit Diagnosis:Postoperative state [Z98.890] Other Visit Diagnosis:Generalized abdominal or pelvic swelling or mass or lump [R19.07] Prescriptions as of 12/02/2017 Sig: DOCUSATE SODIUM 100 MG CAPSULE Take 1 capsule by mouth twice* IBUPROFEN 600 MG TABLET Take 1 tablet by mouth every * LEVOTHYROXINE 137 MCG TABLET TAKE 1 TABLET BY MOUTH DAILY * CHOLECALCIFEROL (VITAMIN D3) * Take 4,000 Units by mouth onc* LISINOPRIL 10 MG TABLET Take 10 mg by mouth once syed* GARLIC 1,000 MG CAPSULE Take 1 tablet by mouth once d* METFORMIN ER 500 MG TABLET,EX* Take 1 tablet by mouth daily * ALEVE ORAL Take 1 tablet by mouth as nee* * VITAMIN C ORAL Take 500 mg by mouth once brigido* * CALCIUM WITH VITAMIN D ORAL Take 1 tablet by mouth once d* * ATENOLOL 25 MG TABLET Take one(1) tablet daily. OXYCODONE 5 MG TABLET Take 1 tablet by mouth every * IBUPROFEN 600 MG TABLET Take 1 tablet by mouth every * DOCUSATE SODIUM 100 MG CAPSULE Take 100 mg by mouth once brigido* Medication notes this encounter IBUPROFEN 600 MG TABLET >> Nely Hunter Ma 12/02/2017 4:35 PM >> NELY HUNTER MA ThuDecember 02, 2017 4:35 PM Duplicate DOCUSATE SODIUM 100 MG CAPSULE >> Nely Hunter Ma 12/02/2017 4:35 PM >> NELY HUNTER MA ThuDecember 02, 2017 4:35 PM Duplicate Problem List As Of Date 12/02/2017 Noted Resolved NONTOX UNINODULAR GOITER [E04.1] INVALID FOR* Splenomegaly [R16.1] INVALID FOR* Biliary dyskinesia [K82.8] INVALID FOR*08/03/2017 Chronic cholecystitis [K81.1] INVALID FOR*08/03/2017 Thyroid cancer [C73] INVALID FOR* Essential hypertension [I10] INVALID FOR* Personal history of colonic polyps [Z86.010] INVALID FOR* Flank pain [R10.9] INVALID FOR* Pelvic mass [R19.00] INVALID FOR* More... Controlled type 2 diabetes mellitus without com*INVALID FOR* Follow-up and Disposition History Recorded Encounter Status:Closed by GUERRERO CARRANZA MD on 12/02/17 PROGRESS Observed: 11/19/2017 Status: COMPLETED Source: [place] 2:22 PM [facility] [place] REPOSITORY HNO ID: [id number] Author: Guerrero Carranza Service: (none) Author Type: Physician Type: Progress Notes Filed: 12/02/2017 4:57 PM Note Text: Gynecologic Oncology [facility] Post-Op Visit Re: Dayanara Murray [facility]#: [id number] 12/02/2017 PROBLEM: Dayanara Murray returns to the office today for postop visit. SURGERY AND DATE: 11/12/2017 - Diagnostic laparoscopy, lysis of adhesions, right salpingo-oophorectomy, excision of retroperitoneal mass superior to the bladder for a pelvic mass. PATHOLOGY: FINAL DIAGNOSIS 1. Ovary and fallopian tube, right, salpingo-oophorectomy (A) - Ovary with benign simple and surface epithelial inclusion cysts, stromal hyperthecosis, and adhesions. - Fallopian tube with no significant pathologic changes. 2. Mass, retroperitoneal supra-bladder, excision - Benign serous cystadenoma. SUBJECTIVE/INTERVAL HISTORY: Dayanara Murray reports that she feels well. No fever or chills. No shortness of breath, cough, or chest pain. No incisional redness, swelling, or drainage. Patient reports that her appetite is good. No abdominal pain, nausea, vomiting, diarrhea, or constipation. No dysuria, gross hematuria, urinary frequency, urinary urgency, or incontinence. Her ECOG performance status is zero (fully active, able to carry on all pre-disease performance without restriction). OBJECTIVE: VITALS: BP 156/87 Pulse 70 Temp 36.6 ?C (97.8 ?F) Ht 165.1 cm (5' 5) Wt 84.8 kg (187 lb) BMI 31.12 kg/m? HEENT: Normocephalic, atraumatic, mucus membranes moist and no lesions NECK: Supple, no adenopathy; thyroid symmetric, normal size, no bruits LUNGS: Normal efforts. ABDOMEN: Abdomen soft, non-tender, no hepatosplenomegaly. Incision healing well. ASSESSMENT: 57 yr old woman with pelvic mass s/p laparoscopic surgical excision who is here today for postop follow up PLAN: 1. Postoperative restrictions were reviewed. Overall she recovered very well 2. We discussed the pathology results which came back c/w benign disease. No further treatment or surgery are needed 3. 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 I advised her to call my office with any issue or concern especially if related to the surgery Guerrero Carranza MD, MPH A letter and a copy of this office note were sent to: - Maddy Harris CNP [phone] [address] - Maddy Harris CNP (PCP) PLAN OF CARE Observed: 11/12/2017 Status: COMPLETED Source: [place] 3:20 PM [facility] REPOSITORY HNO ID: [id number] Author: Anthony (Safety Inspector)Sherrill Service: (none) Author Type: Price Checker Type: Plan of Care Filed: 11/13/2017 9:35 AM Note Text: BUREAU DIRECTOR BEDSIDE DELIVERY SURVEY 1. Patient to use [facility] Bedside Delivery - YES 2. If fax, patient would like us to fax prescriptions to Pharmacy of choice a. Pharmacy: b. Location: c. Phone: 3. Insurance card on file - YES 4. Credit card for payment - N/A OPERATIVE NO Observed: 11/12/2017 Status: COMPLETED Source: [place] 3:20 PM [facility] REPOSITORY HNO ID: [id number] Author: Guerrero Carranza Service: Gynecology Oncology Author Type: Physician Type: Operative Report Filed: 11/13/2017 1:22 PM Note Text: OPERATIVE/PROCEDURE REPORT LOG ID: [id number] SURGERY/PROCEDURE DATE: 11/12/2017 INCISION/PROCEDURE START TIME: 11:23 AM INCISION CLOSE/PROCEDURE END TIME: 12:19 PM SURGEON(S)/PROCEDURALIST(S) AND TOBACCO STRIPPER HAND(S): Surgeon(s) and Role: * Guerrero Carranza - Primary * Tamara (Frank Cruz - Resident - Assisting * Mikie Gómez - Assisting No Additional Staff SURGERY/PROCEDURE(S): Diagnostic laparoscopy, lysis of adhesions, right salpingo-oophorectomy, excision of retroperitoneal mass superior to the bladder Anesthesia: General ?? FINDINGS: 1. Uterus, left tube and ovary surgically absent. 2. Smooth fluid filled mass in the retroperitoneum above the bladder. Easily from the peritoneum. Bladder was back filled and there was no evidence of leak or injury. 3. Normal right ovary and tube with thick adhesions to the sigmoid colon. Bowel adhesions into the cul-de-sac 4. Adhesions of colon to anterior abdominal wall ? ?? Procedure Details:? The patient was taken to the operating room and was placed on the operating room table, general anesthesia with endotracheal intubation was initiated, and oral gastric tube was placed, she was then placed in dorsal lithotomy position, attention was made to avoid any pressure injuries, I evaluated the ankle and hip joints bilaterally after positioning the lower extremity, there was adequate mobility of the joints and no evidence of pressure on the femoral or common peroneal nerves. She was then prepped and draped in a normal sterile fashion and a wallace catheter was inserted. We then proceeded with placement of trochars. The first trocar was placed in the left upper quadrant region and it was 5mm. Intraperitoneal cavity was initially insufflated with CO2 gas using the Veress needle. Then the trocar was inserted into the peritoneal cavity. Subsequently we placed two 5 mm trochars one at each lower quadrants and then 12 mm trochar at the periumbilical region. Intraperitoneal cavity was inspected carefully with above findings. Then the mnas was dissected of the pelvic sidewall, ureter, and rectosigmoid, which was done bluntly and sharply, this took about 30 min. Then the right pelvic sidewall was opened, the ureter was identified, mobilized laterally, then the right gonadal vessels were identified, ligated and cut. Then the mass over the bladder was noted, the peritoneum was incised and the mass was peeled off the bladder, it was not invading the bladder, cystic with simple fluid. The specimen was removed and sent to pathology. Hemostasis was excellent, pedicles were inspected. Trochars were removed. Fascia at 12?mm port was closed with 0-vicryl suture. Skin was reapproximated. At the end of the operation sponge and needle counts and instrument counts were correct x2. The patient tolerated the procedure well and was transferred to the recovery room after extubation. ?? Pre-Op/Pre-Procedure Diagnosis:?Pelvic mass ?? Post-Op/Post-Procedure Diagnosis:?supra-vesical cystic mass ?? Estimated Blood Loss:?20?mls ?? Specimens:?right tube and ovary and supra-vesical retroperitoneal mass ?? Implantable Devices:?None ?? Drains:?None ?? Complications: None ?? I performed the procedure with assistance. SIGNATURE: Guerrero Carranza MD PATIENT NAME: Dayanara Murray DATE: November 13, 2017 TIME: 1:20 PM PAGER/CONTACT #: ANES POST Observed: 11/12/2017 Status: COMPLETED Source: [place] 1:33 PM [facility] OTHER CAMPUS REPOSITORY O ID: [id number] Author: Bear Tamez Service: Anesthesiology Author Type: Anesthesiologist Type: Anesthesia PostOp Filed: 11/12/2017 1:34 PM Note Text: POST ANESTHESIA EVALUATION NOTE SERVICE DATE: 11/12/2017 SERVICE TIME: 1332 : 1960 Vitals: 11/12/17 1028 11/12/17 1230 Temp: 36.8 ?C (98.2 ?F) 36.4 ?C (97.5 ?F) 11/12/17 1028 11/12/17 1230 11/12/17 1245 11/12/17 1300 BP: 128/78 128/81 131/80 141/76 11/12/17 1028 11/12/17 1230 11/12/17 1245 11/12/17 1300 Pulse: 89 87 62 (!) 54 11/12/17 1028 11/12/17 1230 11/12/17 1245 11/12/17 1300 Resp: 18 12 16 11 11/12/17 1028 11/12/17 1230 11/12/17 1245 11/12/17 1300 SpO2: 93% 100% 98% 99% Validated Vital Signs: Yes POST ANES STATUS: No apparent anesthetic complications. The patient is appropriately hydrated with stable respiratory and cardiovascular status. Patient has safe and adequate airway control. The patient has appropriate pain relief and no significant post operative nausea or vomiting. The patient has achieved baseline mental status. Further assessment by Anesthesia Service: None Other Remarks: SIGNATURE: Bear Tamez MD PATIENT NAME: Dayanara Murray DATE: November 12, 2017 TIME: 1:33 PM PAGER/CONTACT #: BRIEF OP NOT Observed: 11/12/2017 Status: COMPLETED Source: [place] 12:21 PM [facility] REPOSITORY HNO ID: [id number] Author: Tamara Cruz (Res) Service: Gynecology Oncology Author Type: Resident Type: Brief Op Note Filed: 11/12/2017 12:24 PM Note Text: BRIEF OPERATIVE / PROCEDURE NOTE LOG ID: [id number] SURGERY/PROCEDURE DATE: 11/12/2017 INCISION/PROCEDURE START TIME: 11:23 AM INCISION CLOSE/PROCEDURE END TIME: 12:19 PM SURGEON(S)/PROCEDURALIST(S) AND TOBACCO STRIPPER HAND(S): Surgeon(s) and Role: * Guerrero Carranza - Primary * Tamara (Res) Anthony - Resident - Assisting * Mikie Gómez - Assisting No Additional Staff SURGERY/PROCEDURE(S): Diagnostic laparoscopy, lysis of adhesions, right salpingo-oophorectomy, excision of retroperitoneal mass superior to the bladder ANESTHESIA: Choice - Anesthesia Consult FINDINGS: 1. Uterus, left tube and ovary surgically absent. 2. Smooth fluid filled mass in the retroperitoneum above the bladder. Easily from the peritoneum. Bladder was back filled and there was no evidence of leak or injury. 3. Normal right ovary and tube with thick adhesions to the sigmoid colon. Bowel adhesions into the cul-de-sac 4. Adhesions of colon to anterior abdominal wall ESTIMATED BLOOD LOSS: 5 mls SPECIMENS: 1. Retroperitoneal mass above bladder; 2. left tube and ovary COMPLICATIONS: None PRE-OP/PRE-PROCEDURE DIAGNOSIS: pelvic mass POST-OP/POST-PROCEDURE DIAGNOSIS: Right Pelvic Mass SIGNATURE: Tamara Cruz MD PATIENT NAME: Dayanara Murray DATE: November 12, 2017 TIME: 12:21 PM PAGER/CONTACT #: ANES PREOP Observed: 11/12/2017 Status: COMPLETED Source: [place] 10:36 AM [facility] REPOSITORY HNO ID: [id number] Author: Bear Tamez Service: Anesthesiology Author Type: Anesthesiologist Type: Anesthesia PreOp Filed: 11/12/2017 10:38 AM Note Text: REGIONAL ANESTHESIOLOGY PREOPERATIVE ASSESSMENT Surgeon(s): Guerrero Carranza Procedure(s) (LRB): LAPAROSCOPY WITH OOPHORECTOMY AND SALPINGECTOMY (Right) LAPAROSCOPIC REMOVAL PELVIC MASS (N/A) Vitals: 11/12/17 1028 BP: 128/78 Pulse: 89 Resp: 18 Temp: 36.8 ?C (98.2 ?F) TempSrc: Temporal Artery SpO2: 93% ACTIVE PROBLEM LIST Nontoxic Uninodular Goiter Splenomegaly Thyroid Cancer (Hcc) Essential Hypertension Personal History of Colonic Polyps Flank Pain Pelvic Mass Controlled Type 2 Diabetes Mellitus Without Complication, Without Long-Term Current Use of Insulin (Hcc) PAST MEDICAL HISTORY Diagnosis Date - Backache, unspecified - Diabetes (HCC) - Dysthymic disorder Depression (non-psychotic) - Esophageal reflux - Essential hypertension, malignant - Headache(784.0) - Hyperglycemia - Hypopotassemia - Iron deficiency anemia secondary to blood loss (chronic) - Nontoxic uninodular goiter - Other malaise and fatigue - Pain in joint, site unspecified - Pure hypercholesterolemia - Rosacea - Sciatica - Unspecified vitamin D deficiency - Urinary frequency PAST SURGICAL HISTORY Procedure Laterality Date - COLONOSCOP W/ OR W/O [facility] SPEC 04-25-16 - HYSTERECTOMY HX 2006 partial hysterectomy-thinks one ovary left - LAPAROSCOPY, SURGICAL, SPLENECTOMY 09-12-11 - PAST SURGICAL HISTORY OF 2010 Gall Bladder - SHOULDER SURGERY HX Right 07/02/2016 [facility] - THYROID LOBECTOMY,UNILAT 05-26-13 RIGHT - THYROIDECTOMY POST PREV THYR SURG 07-14-13 LEFT--COMPLETION FAMILY HISTORY Problem Relation Age of Onset - Heart Father MO - COPD Sister - Diabetes Other Nephew - Cancer Sister cervical - Diabetes Sister - Hypertension Sister Social History: Social History Substance Use Topics - Smoking status: Former Smoker Years: 10.00 Types: Cigarettes Quit date: 07/03/2001 - Smokeless tobacco: Never Used Comment: Pt smoked 2 packs a week for 10 years. - Alcohol use Yes Comment: seldom No current facility-administered medications on file prior to encounter. Current Outpatient Prescriptions on File Prior to Encounter: levothyroxine (SYNTHROID) 137 mcg tablet TAKE 1 TABLET BY MOUTH DAILY BEFORE BREAKFAST. lisinopril (ZESTRIL, PRINIVIL) 10 mg tablet Take 10 mg by mouth once daily. metFORMIN ER (GLUCOPHAGE XR) 500 mg 24 hr tablet Take 1 tablet by mouth daily with breakfast. ASCORBIC ACID (VITAMIN C ORAL) Take 500 mg by mouth once daily. CALCIUM CARBONATE/VITAMIN D3 (CALCIUM WITH VITAMIN D ORAL) Take 1 tablet by mouth once daily. 1200mg/1000IU ATENOLOL 25 MG TAB Take one(1) tablet daily. ibuprofen (MOTRIN) 600 mg tablet Take 1 tablet by mouth every 6 hours as needed. FOR PAIN. cholecalciferol (VITAMIN D-3) 2,000 unit tablet Take 4,000 Units by mouth once daily. Garlic 1,000 mg cap Take 1 tablet by mouth once daily. docusate sodium (COLACE) 100 mg capsule Take 100 mg by mouth once daily. NAPROXEN SODIUM (ALEVE ORAL) Take 1 tablet by mouth as needed. Current Facility-Administered Medications: lidocaine 10 mg/mL (1 %) 1-2 mg injection (XYLOCAINE) 0.1- 0.2 mL INTRADERMAL PRN Estuardo (Tourist Information Assistant) G[facility]os lactated ringers infusion 5-30 mL/hr INTRAVENOUS CONTINUOUS Estuardo (Tourist Information Assistant) [facility]os ceFAZolin iv piggyback 2 g in D5W (iso-osmotic) 100 mL (ANCEF) 2 g INTRAVENOUS Pre-Op Once Estuardo (Tourist Information Assistant) Gargalianos acetaminophen 1,000 mg tab(s) (TYLENOL) 1,000 mg ORAL Pre- Op Once [facility] promethazine 12.5 mg tab(s) (PHENERGAN) 12.5 mg ORAL Pre-Op Once [facility] albuterol 2.5 mg /3 mL (0.083 %) 2.5 mg (PROVENTIL) 2.5 mg INHALATION (PACU) PRN [facility] NaCl 0.9% iv infusion 100 mL/hr INTRAVENOUS (PACU) CONTINUOUS [facility] fentaNYL 50 mcg/mL 25 mcg injection (SUBLIMAZE) 25 mcg INTRAVENOUS (PACU) PRN [facility] ondansetron 4 mg tab(s) (ZOFRAN) 4 mg ORAL (PACU) PRN [facility] Or ondansetron (PF) 4 mg injection (ZOFRAN) 4 mg INTRAVENOUS (PACU) PRN [facility] meperidine (PF) 12.5 mg injection (DEMEROL) 12.5 mg INTRAVENOUS (PACU) PRN [facility] HYDROmorphone 0.2 mg injection (DILAUDID) 0.2 mg INTRAVENOUS (PACU) PRN [facility] Allergies: ALLERGIES Allergen Reactions - Adhesive Mental Status Change, Rash Blisters - Horse Hair And Dand* Other: See Comments Had testing - Morphine Hcl Other: See Comments Pulse dropped - Seasonal Allergies Other: See Comments Sneezing, itchy eyes, watery eyes REVIEW OF SYSTEMS: As stated in Active Problem List/ Past Medical History Hemoglobin 14.0 11/06/2017 Hematocrit 43.5 11/06/2017 Sodium 140 11/06/2017 Glucose 91 11/06/2017 Potassium 4.5 11/06/2017 Platelet Count 288 11/06/2017 Creatinine, Whole Blood (iSTAT) 0.71 11/06/2017 EKG RESULTS: normal EKG, normal sinus rhythm ANESTHESIOLOGY REVIEW: Airway Assessment: MP 3; Neck ROM: Full ROM without neurologic symptoms; Airway Evaluation: Thick neck Symptoms of Sleep Apnea: N/A Intubation History: No previous history of difficult intubation Dentition: Teeth intact ADVERSE ANESTHESIA EVENT: No history of adverse event FAMILY HIISTORY OF ANESTHESIA: No known issues Blood Products: Will accept Blood/Blood Products Other Medical Problems: None Additional Physical Exam: Lungs: Lungs clear to auscultation. Good diaphragmatic excursion. Cardiac: normal S1 and S2; no rubs, no murmurs, and no gallops Additional pertinent findings: N/A I have interviewed and examined the patient. I have reviewed the medical record and/or the pre-anesthesia evaluation, pertinent labs, and test results. Significant changes in the patient's condition since the History and Physical, not otherwise documented in primary service progress notes: No Anesthetic risks, benefits, alternatives, personnel and consent discussed. Yes ASA 2 NPO >8 hours PLAN: GETA This contains updated information obtained within 48 hours of Surgery/Procedure. SIGNATURE: Bear Tamez MD PATIENT NAME: Dayanara Murray DATE: November 12, 2017 TIME: 10:36 AM PAGER/CONTACT #: HISTORY PHYSICAL Observed: 11/12/2017 Status: COMPLETED Source: [place] 10:28 AM CLINIC OTHER CAMPUS REPOSITORY HNO ID: [id number] Author: Mikie Gómez Service: Gynecology Oncology Author Type: Physician Type: HANDP Filed: 11/12/2017 10:29 AM Note Text: UPDATED HISTORY AND PHYSICAL EXAMINATION SERVICE DATE: 11/12/2017 SERVICE TIME: 1020 PHYSICAL EXAM MUST BE COMPLETED ON ADMISSION The History and Physical (completed in the past 30 days) has been reviewed and the patient has been examined. The contents accurately reflect the patient's condition with the following additions or revisions since the HANDP was completed. Examination indicates no changes. This HANDP can be found in the Electronic Medical Record dated 10/09/2017. SIGNATURE: Mikie Gómez MD PATIENT NAME: Dayanara Murray DATE: November 12, 2017 TIME: 10:28 AM PAGER: [phone] SURGICAL PATHOLOGY Observed: 11/12/2017 Status: F Source: [place] 12:00 AM CLINIC OTHER CAMPUS REPOSITORY Specimen originated from [facility] Specimen #: [id number] Submitting Physician: GUERRERO CARRANZA MD FINAL DIAGNOSIS 1. Ovary and fallopian tube, right, salpingo-oophorectomy (A) - Ovary with benign simple and surface epithelial inclusion cysts, stromal hyperthecosis, and adhesions. - Fallopian tube with no significant pathologic changes. 2. Mass, retroperitoneal supra-bladder, excision - Benign serous cystadenoma. TLP/rw 11/17/2017 Agnes Tineo M.D. (Electronic Signature) SPECIMEN SUBMITTED A: RIGHT FALLOPIAN TUBE AND RIGHT OVARY B: RETROPERITONEAL SUPRA-BLADDER MASS CLINICAL DATA RIGHT PELVIC MASS GROSS DESCRIPTION A. Received in formalin designated Right fallopian tube and right ovary is a fallopian tube with attached ovary that weighs 11 grams. The fallopian tube measures 3 cm in length and 0.5 cm in diameter. The outer surface is pink-cabrales, smooth and glistening. The fimbriated end is unremarkable. Sectioning through the tube reveals a patent lumen. Attached to the fallopian tube is an ovary that measures 3 x 1.6 x 1.2 cm. The outer surface is cabrales-yellow and wrinkled. Sectioning through the ovary reveals unremarkable ovarian parenchyma. Home Assessment Nurse sections are submitted as follows: A1 fallopian tube, A2-A3 ovary. B. Received in formalin designated Retroperitoneal supra- bladder mass is a cyst that weighs 20 grams and that measures 6 x 3.5 x 2.5 cm. The outer surface is pink-cabrales, smooth and glistening. The inner lining is pink-cabrales, smooth and glistening with a cabrales-yellow gelatinous nodule that measures 1.8 cm in greatest dimension. Cyst wall measures 0.1 cm in thickness. Home Assessment Nurse sections are submitted in six cassettes with cassettes B1 and B3 corresponding with the nodule. WE/dss 11/13/2017 Gross examination performed at [place] [address] Date of Report: 11/17/2017 Date of Procedure: 11/12/2017 Date of Receipt: 11/12/2017 Submitted by: GUERRERO CARRANZA MD Location: [facility] Diagnostic [place] [address]. Performed By: #### PATHS #### [place] [address] NURSING PROG Observed: 11/10/2017 Status: COMPLETED Source: [place] 12:38 PM CLINIC OTHER CAMPUS REPOSITORY HNO ID: [id number] Author: Georgia Preston (Rn), RN Service: General Surgery Author Type: Registered Nurse Type: Nursing Progress Note Filed: 11/11/2017 6:43 AM Note Text: PACC Nurse Progress Note History AND Physical: PACC Visit Date: 11-06-17 Original HANDP Date: N/A ED visit Date: N/A Outside HANDP Scanned Date: N/A Labs Within Last 6 Months: CBC: Date 11-06-17. Abnormal WBC's and results faxed to surgeon and message sent to provider. BMP/CMP: Date 11-06-17 HBA1C: Date 03-23-17 TYPE AND SCREEN: Date 11-06-17 [place]: Date 11-06-17 Imaging Within Last 12 Months: MRI Pelvis 10-05-17 Cardiac Testing: EKG in last 12 Months: Yes: Date: 09-16-17, Comment: Results scanned in [facility] 5-7-18 Last Menstrual Period: LMP Date: Unknown Postmenopausal >1yr: Yes, S/P Hysterectomy: Yes BMI Percentile (PEDS): N/A Risk Assessment: N/A Anesthesia Review: N/A Narrative: N/A Pre-op Considerations: DOS: Glucose DM: Oral agents. Chart Check: COMPLETED Georgia Preston RN November 10, 2017 12:39 PM CONFIRM BLOOD TYPE Collected: 11/06/2017 Status: F Source: [place] 4:39 PM [facility] OTHER [place] REPOSITORY TYPE CODE TESTS RESULT OUT OF REFERENCE UNITS RANGE LAB %ABR A ABO/RH(D) POSITIVE Performed By: #### [place]O #### [place] [phone] TYPE AND SCR (30D) Collected: 11/06/2017 Status: F Source: [place] 4:37 PM [facility] OTHER [place] REPOSITORY TYPE CODE TESTS RESULT OUT OF REFERENCE UNITS RANGE LAB %ABR A ABO/RH(D) POSITIVE LAB % Antibody NEG Screen Performed By: #### [id number] #### [place] [phone] COMP METABOLIC PANEL Collected: 11/06/2017 Status: F Source: [place] 4:37 PM [facility] MAIN [place] REPOSITORY TYPE CODE TESTS RESULT OUT OF REFERENCE UNITS RANGE LAB TP 6.3-8.0 g/dL Protein, Total 7.7 LAB ALB 3.9-4.9 g/dL Albumin 4.2 LAB CA 8.5-10.2 mg/dL Calcium, Total 9.2 LAB TBIL 0.2-1.3 mg/dL Bilirubin, Total 0.2 LAB ALKP 32-117 U/L Alkaline Phosphatase 66 LAB AST 13-35 U/L AST 27 LAB GLU 74-99 mg/dL Glucose 91 Result Comment: The [place] Diabetes Association (ADA) provides guidance for cutoff values for fasting glucose and random glucose. The ADA defines fasting as no caloric intake for at least 8 hours. Fas ting plasma glucose results between 100 to 125 mg/dL indicate increased risk for diabetes (prediabetes). Fasting plasma glucose results greater than or equal to 126 mg/dL meet the criteria for diagnosis of diabetes. In the absence of unequivocal hyperglycemia, results should be confirmed by repeat testing. In a patient with classic symptoms of hyperglycemia or hyperglycemic crisis, random plasma glucose results greater than or equal to 200 mg/dL meet the criteria for diagnosis of diabetes. Reference: Standards of Medical Care in Diabetes 2016, [place] Diabetes Association. Diabetes Care. 2016.39(Suppl 1). LAB BUN 7-21 mg/dL BUN 13 LAB CRET 0.58-0.96 mg/dL Creatinine 0.71 LAB NA 136-144 mmol/L Sodium 140 LAB K 3.7-5.1 mmol/L Potassium 4.5 LAB CL 97-105 mmol/L Chloride 102 LAB CO2 22-30 mmol/L CO2 28 LAB AGAP 9-18 mmol/L Anion Gap 10 LAB ALT 7-38 U/L ALT 22 LAB GFRAA eGFR- Amer. >60 LAB GFRNAA . eGFR-All Other Races >60 Result Comment: eGFR (Estimated GFR) Units of measure: mL/min/1.73 meters squared eGFR is derived from the reexpressed MDRD Study equation using the following parameters: serum creatinine, age, gender and race. The creatinine assay has been calibrated to be traceable to IDMS. An eGFR <60 mL/min/1.73m2 for >3 months is consistent with chronic kidney disease. Refer to KDOQI guidelines for clinical interpretation. In patients with unstable renal function, e.g. those with acute kidney injury, the eGFR may not accurately reflect actual GFR. Performed By: #### CMP, CBCDIF #### [facility] [address] [place], [place] [address] CBC AND DIFFERENTIAL Collected: 11/06/2017 Status: F Source: [place] 4:37 PM [facility] MAIN CAMPUS REPOSITORY TYPE CODE TESTS RESULT OUT OF REFERENCE UNITS RANGE LAB WBC 3.70-11.00 k/uL WBC High 12.26 LAB RBC 3.90-5.20 m/uL RBC 4.68 LAB HGB 11.5-15.5 g/dL Hemoglobin 14.0 LAB HCT 36.0-46.0 % Hematocrit 43.5 LAB MCV 80.0-100.0 fL MCV 92.9 LAB MCH 26.0-34.0 pG MCH 29.9 LAB MCHC 30.5-36.0 g/dL MCHC 32.2 LAB RDWCV 11.5-15.0 % RDW-CV 13.2 LAB PLTCT 150-400 k/uL Platelet Count 288 LAB MPV 9.0-12.7 fL MPV 12.5 LAB ANEUT % Neut% 40.0 LAB AANEUT 1.45-7.50 k/uL Abs Neut 4.90 LAB ALYMP % Lymph% 53.0 LAB AALYMP 1.00-4.00 k/uL Abs Lymph High 6.50 LAB AMONO % [place]% 5.0 LAB AAMONO <0.87 k/uL Abs [place] 0.61 LAB AEOS % Eosin% 2.0 LAB AAEOS <0.46 k/uL Abs Eosin 0.25 LAB ABASO % Baso% 0.0 LAB AABASO <0.11 k/uL Abs Baso 0.00 LAB ABIMMG k/uL ANC(includeSEG+BAN 4.90 D) LAB POLIMI Polychromasia Slight LAB RCFIMI RBC Fragments Few LAB PLTEST Platelet Estimate Platelet estimate adequate LAB DTYP DTYPE Manual Diff Performed By: #### CMP, CBCDIF #### [facility] [address] [place], [place] [address] HISTORY PHYSICAL Observed: 11/06/2017 Status: COMPLETED Source: [place] 3:39 PM [facility] REPOSITORY HNO ID: [id number] Author: Tashia Pickens (Adonis) Service: (none) Author Type: Physician Hydro Plant Operator Type: HANDP Filed: 11/09/2017 4:13 PM Note Text: HISTORY AND PHYSICAL EXAMINATION SERVICE DATE: 11/06/2017 SERVICE TIME: 3:39 PM PRIMARY CARE PHYSICIAN: Maddy Harris REASON FOR VISIT: Dayanara Murray is a 57 year old female who is scheduled for Laparoscopic right oophorectomy salpingectomy and removal pelvic mass at the request of Dr. Tommie Carranza for consultation. My final recommendation will be communicated back to the requesting physician by way of shared medical record or letter. The patient has the following: ACTIVE PROBLEM LIST Nontoxic Uninodular Goiter Splenomegaly Thyroid Cancer (Hcc) Essential Hypertension Personal History of Colonic Polyps Flank Pain Pelvic Mass Controlled Type 2 Diabetes Mellitus Without Complication, Without Long-Term Current Use of Insulin (Hcc) Subjective CHIEF COMPLAINT: ovarian mass HPI: 57 yo female with h/o hysterectomy for menorrhagia and left ovary removed at the time. She has been having pain in the right side which radiates to her back for the past year. She also has a known kidney stone. + urinary frequency and pressure on her bladder. Dr Velazquez did a diagnostic laparoscopy at [facility] on 09/17/17. Per her note a mass was found over the bladder and adhered to the cuff and bladder and to sigmoid colon as well. Right ovary appeared to be embeded in bowel and adhered to posterior pelvic wall under the mass and appeared small and separate from the mass. No vaginal bleeding or other symptoms reported. No elevation of CA 125 PAST MEDICAL HISTORY Diagnosis Date - Backache, unspecified - Diabetes (HCC) - Dysthymic disorder Depression (non-psychotic) - Esophageal reflux - Essential hypertension, malignant - Headache(784.0) - Hyperglycemia - Hypopotassemia - Iron deficiency anemia secondary to blood loss (chronic) - Nontoxic uninodular goiter - Other malaise and fatigue - Pain in joint, site unspecified - Pure hypercholesterolemia - Rosacea - Sciatica - Unspecified vitamin D deficiency - Urinary frequency PAST SURGICAL HISTORY Procedure Laterality Date - COLONOSCOP W/ OR W/O [facility] SPEC 04-25-16 - HYSTERECTOMY HX 2006 partial hysterectomy-thinks one ovary left - LAPAROSCOPY, SURGICAL, SPLENECTOMY 09-12-11 - PAST SURGICAL HISTORY OF 2010 Gall Bladder - SHOULDER SURGERY HX Right 07/02/2016 [facility] - THYROID LOBECTOMY,UNILAT 05-26-13 RIGHT - THYROIDECTOMY POST PREV THYR SURG 07-14-13 LEFT--COMPLETION FAMILY HISTORY Problem Relation Age of Onset - Heart Father [place] - COPD Sister - Diabetes Other Nephew - Cancer Sister cervical - Diabetes Sister - Hypertension Sister SOCIAL HISTORY: Social History Marital status: Single Spouse name: Years of education: Number of children: Occupational History Occupation Employer Comment [employer] Social History Main Topics Smoking status: Former Smoker Packs/day: 0.00 Years: 10.00 Types: Cigarettes Quit date: 07/03/2001 Smokeless tobacco: Never Used Comment: Pt smoked 2 packs a week for 10 years. Alcohol use: Yes Comment: seldom Drug use: No Sexual activity: Yes control/protection: Surgical Comment: hysterectomy Prior to Admission medications as of 11/06/17 6725 Medication Sig Last Dose Taking ibuprofen (MOTRIN) 600 mg tablet Take 1 tablet by mouth every 6 hours as needed. FOR PAIN. Yes levothyroxine (SYNTHROID) 137 mcg tablet TAKE 1 TABLET BY MOUTH DAILY BEFORE BREAKFAST. Yes lisinopril (ZESTRIL, PRINIVIL) 10 mg tablet Take 10 mg by mouth once daily. Yes docusate sodium (COLACE) 100 mg capsule Take 100 mg by mouth once daily. Yes metFORMIN ER (GLUCOPHAGE XR) 500 mg 24 hr tablet Take 1 tablet by mouth daily with breakfast. Yes NAPROXEN SODIUM (ALEVE ORAL) Take 1 tablet by mouth as needed. Yes ASCORBIC ACID (VITAMIN C ORAL) Take 500 mg by mouth once daily. Yes ATENOLOL 25 MG TAB Take one(1) tablet daily. Yes cholecalciferol (VITAMIN D-3) 2,000 unit tablet Take 4,000 Units by mouth once daily. Garlic 1,000 mg cap Take 1 tablet by mouth once daily. CALCIUM CARBONATE/VITAMIN D3 (CALCIUM WITH VITAMIN D ORAL) Take 1 tablet by mouth once daily. 1200mg/1000IU No medication comments found. ALLERGIES Allergen Reactions - Adhesive Mental Status Change, Rash Blisters - Horse Hair And Dand* Other: See Comments Had testing - Morphine Hcl Other: See Comments Pulse dropped - Seasonal Allergies Other: See Comments Sneezing, itchy eyes, watery eyes REVIEW OF SYSTEMS: PAIN ASSESSMENT: General: No weight loss, malaise or fevers. 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 No neurological symptoms or problems. 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 Patient has had a hysterectomy. Endocrine: Diabetes Mellitus on oral agent, Hypothyroidism, s/p thyroidectomy for CA Hematology: No history of bleeding or clotting disorder. Pt is not taking anti-coagulation or platelet medications. No history of hematological symptoms or problems. Oncology: thyroid cancer Psych: Anxiety, Depression Musculoskeletal: feet and leg pain and left hip Skin: Negative for lesions, rash and itching. Objective PHYSICAL EXAM: VITALS: BP 121/64 Pulse 76 Temp (Src) 98.2 (Temporal Artery) Ht 5' 4.5 (1.64m) Wt 189 lb 6.4 oz (85.9kg) SpO2 96% BMI 32.02 kg/(m2). General: Alert and oriented, No acute distress, Healthy appearance Skin: Normal color, no rash, no lesions. HEENT: EOM, pupils equal, round and reactive. Cardiovascular: Normal S1 AND S2, no rubs, murmurs or gallops. No JVD. Pulse regular. Lungs: Normal breath sounds, no wheezes or crackles., No chest deformities or chest wall tenderness. Abdomen: Tender right lower region Extremities: No deformity, no edema or tenderness, no joint swelling or clubbing. Neurological: Normal cognition and motor skills. Gait normal. No weakness or sensory deficit. Pulses: Carotid and radial pulses normal +2. Diagnostic tests reviewed for today's visit: Lab Value Units Date High Low HB No results within date range. HCT No results within date range. WBC No results within date range. PLT No results within date range. NA No results within date range. K No results within date range. GLUC No results within date range. BUN No results within date range. CREAT No results within date range. PTSEC No results within date range. INR No results within date range. APTT No results within date range. ALT No results within date range. AST No results within date range. TBILI No results within date range. TSH No results within date range. Lab Value Units Date High Low HCGQT No results within date range. UHCG No results within date range. HCG, BODY* No results within date range. Lab Value Units Date High Low ABORHD No results within date range. ABSCREEN No results within date range. Hemoglobin A1c (%) Date Value 12/04/2015 5.4 Hemoglobin A1C (POCT) (%) Date Value 03/23/2017 5.8 Most recent labs [facility] recent EKG to be scanned Assessment ASSESSMENT Diabetes - Well controlled last Hgb A1c 5.8 (03/2017) HTN - Well controlled H/o thyroid cancer Anxiety METS: Climb a flight of stairs or walk up a hill (5.50 METs) ASA Class: 3 ANESTHESIA FINDINGS: Intubation History: No history of difficult intubation Significant Anesthesia Considerations: None Airway Exam: General: Normal appearance Mallampati Score is CLASS II ULBT: Class I - Lower incisors can bite the upper lip above the gomez line Neck: Normal appearance and function, Distance from hyoid to mentum during neck extension is at least 3 finger breaths Mouth: Normal tongue size Dentition: Intact Airway History: No abnormal airway history STOP BANG Score: Criteria: Hypertension Age over 50 (57 year old) Neck circumference > 15.75 inches Score = 3 PLAN This patient is optimally prepared for surgery pending LABS. CONSULTS: Patient does not require consults for optimization at this time. The Following Tests/Procedures Have Been Initiated: Orders Placed This Encounter CBC + DIFF COMP METABOLIC PANEL TYPE + SCREEN,30 DAY CONFIRM BLOOD TYPE Planned Anesthetic: General Instructions Given to Patient: Patient given verbal and written preop instructions and voices comprehension and compliance. SIGNATURE: Tashia Pickens PA-C PATIENT NAME: Dayanara Murray DATE: November 06, 2017 TIME: 3:39 PM PAGER/CONTACT #: [facility] Observed: 10/16/2017 Status: COMPLETED Source: [place] 12:00 AM CLINIC OTHER CAMPUS REPOSITORY Patient:Dayanara Murray MRN: <[id number]> Height:5' 4.5(1.638 m) Weight:189 lb 6.4 oz (85.911 kg) Outpatient Medications as of 11/12/17: ibuprofen (MOTRIN) 600 mg tablet levothyroxine (SYNTHROID) 137 mcg tablet cholecalciferol (VITAMIN D-3) 2,000 unit tablet lisinopril (ZESTRIL, PRINIVIL) 10 mg tablet Garlic 1,000 mg cap docusate sodium (COLACE) 100 mg capsule metFORMIN ER (GLUCOPHAGE XR) 500 mg 24 hr tablet NAPROXEN SODIUM (ALEVE ORAL) ASCORBIC ACID (VITAMIN C ORAL) CALCIUM CARBONATE/VITAMIN D3 (CALCIUM WITH VITAMIN D ORAL) ATENOLOL 25 MG TAB Admission/Clinic Administered Medications as of 11/12/17: lidocaine 10 mg/mL (1 %) 1-2 mg injection (XYLOCAINE) lactated ringers infusion ceFAZolin iv piggyback 2 g in D5W (iso-osmotic) 100 mL (ANCEF) albuterol 2.5 mg /3 mL (0.083 %) 2.5 mg (PROVENTIL) NaCl 0.9% iv infusion fentaNYL 50 mcg/mL 25 mcg injection (SUBLIMAZE) ondansetron 4 mg tab(s) (ZOFRAN) ondansetron (PF) 4 mg injection (ZOFRAN) meperidine (PF) 12.5 mg injection (DEMEROL) HYDROmorphone 0.2 mg injection (DILAUDID) Problem List: Nontoxic uninodular goiter [E04.1] Splenomegaly [R16.1] Thyroid cancer (HCC) [C73] Essential hypertension [I10] Personal history of colonic polyps [Z86.010] Flank pain [R10.9] Pelvic mass [R19.00] Controlled type 2 diabetes mellitus without complication, without long-term current use of insulin (HCC) [E11.9] Allergies: Adhesive Horse Hair And Dander Morphine Hcl Seasonal Allergies Date Verified: 11/12/17 Lab Values Lab Value Units Date High Low POTA* 4.5 mmol/L 11/06/2017 5.1 3.7 [place]* 43.5 % 11/06/2017 46.0 36.0 Progress Notes (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 Carranza on 11/12/17 Will await call Tashia Mares (Rn), RN 11/05/2017 9:01 AM Signed Attempted to reach patient again for pre op teaching. Patient is at work and will try to reach us later Tashia Mares (Rn), RN 11/09/2017 10:15 AM Signed Procedure: Laparoscopic removal of pelvic mass with tubes and ovaries Physician: Dr. Guerrero Carranza Location: [facility]: [phone] Date AND Time: 11/12/2017 PRE ADMISSION TESTING: Yes, done 11/06/2017 THE FOLLOWING WAS EVALUATED Motivation To Learn: Interested Family/Significant Other Support: Unable to assess - Family not present Cognitive Ability: Alert and oriented Patient Learns Best By: Verbal Instruction Multiple Methods The Following Influencing Factors Were Barriers To This Education Session: None The Following Physical Limitations Were Barriers To This Education Session: None Instruction Provided To: Patient MEDICATION INFORMATION ASPIRIN and ADVIL can make you more prone to bleeding after surgery. Please STOP taking these medications at least (7) days before and for (3) days after surgery or procedure. Some common medications that contain ASPIRIN or act like Aspirin are TO BE AVOIDED: This is a list of the medications you should avoid: Advill Celebrex Motrin Aggrenox Clinoril Naprosyn(naproxen) Agrylin NSAIDS Pepto-Bismol Aleve Ecotrin Persantine Kacie-Thurman Excedrin Plaquenil Anacin Heparin Plavix Ascriptin Herbals Pletal Aspergum Ibuprofen Ticlid Sarah Indocin Trental Bextra Midol [place]ish Bufferin Gingko Biloba Vitamin E (MVI) MEDICATIONS YOU MAY SUBSTITUTE Anacin 3 Fioricet * Tylenol with codeine * Darvocet N 100 * Plenadol Percocet * Datril Sine-Aide Tylenol Excedrin PM (*Denotes prescription needed to obtain these medications) Learning Topic: Procedure/Surgery: Instructions reviewed for arrival time, parking and admission. Specific topics reviewed and discussed with all surgical patients include: No eating, drinking, or smoking after midnight prior to surgery. Medications as prescribed by anesthesia or the physician. Review of information contained in surgical packet Pre-operative and intra-operative general activities were reviewed including: Holding Area, assessments, surgical positioning, and Family Waiting Area. Written post-operative instructions were given to the patient regarding post-op activity, pain control, symptoms to report. Post-operative instructions provided and reviewed with patient/family: ACTIVITY - No heavy lifting (>5-10 lbs), no pushing/pulling, OK to climb stairs DRIVING - No driving while taking prescription pain medication, or within 24 hours of anesthesia, OK to ride in a car. DIET - Advance diet as tolerated and as ordered by MD, drink 8 glasses of water a day, eat a diet high in protein and fiber unless otherwise directed by MD. CATHETER - Will be inserted during surgery, you may go home with a catheter. If you go home with a catheter you will have to come back to the office for a voiding trial, UTI symptoms reviewed and patient instructed to notify MD of any of these symptoms. INCISION CARE - Keep incision clean and dry, blu to be removed 7-10 days after surgery, steristrips do not need to be removed by MD BATHING - OK to shower after surgery unless otherwise directed by MD, no tub baths. PAIN MEDICATION - IV pain medication after surgery, IV CUSTOMER DEVELOPMENT MANAGER if ordered by MD, discharged home with a prescription for PO pain medication, pain management after surgery, side effects of pain medication (including constipation, dizziness, drowsiness, and medication interactions). DVT PROPHYLAXIS - Early ambulation, SCDs, injectable anticoagulants (heparin, lovenox, etc) RESPIRATORY - Incentive spirometer, coughing/deep breathing exercises, ambulation. RETURN TO WORK - As directed by physician, please send any FMLA papers to physician's medical secretary. SYMPTOMS TO NOTIFY MD - Fever, chills, nausea, vomiting, increased or severe pain, heavy vaginal bleeding, foul smelling vaginal drainage, pain or swelling in extremities. URGENT SYMPTOMS - Call 911 or go to ER if any shortness of breath, difficulty breathing, or chest pain. HOW TO CONTACT PHYSICIAN - Physician's office phone number given to patient, if after hours patient instructed to call track liner operator and ask for the doctor charge preparation technician. Patient and family have phone number to call 24 hours/day. Patient Evaluation: Verbalizes understanding Patient and/or family express understanding of upcoming surgery and the operative process. Questions answered. Follow Up Plan: Follow up as directed by MD. Supplemental Material Given: Pre-operative teaching packet provided to the patient: INPATIENT/OUTPATIENT printed instructions; Post-operative instruction sheet, bowel prep instruction sheet For questions contact: office at [phone] Instructed By Tashia Mares RN HOSP Observed: 10/12/2017 Status: COMPLETED Source: [place] 12:00 AM CLINIC OTHER CAMPUS REPOSITORY Patient Update ([facility]) DAYANARA MURRAY (<[id number]>) 1960 F [facility] Date Time Provider Department 10/12/17 ESTUARDO GILLILAND ([facility]) [facility] During your visit today, we recorded the following information about you: Allergies As of Date: 10/12/2017 Noted Allergy Reaction ADHESIVE 08/05/2016 1 - Mental Status Change 2 - Rash Comments: Blisters HORSE HAIR AND DANDER 08/22/2013 14 - Other: See Comments Comments: Had testing MORPHINE HCL 12/04/2015 14 - Other: See Comments Comments: Pulse dropped SEASONAL ALLERGIES 08/22/2013 14 - Other: See Comments Comments: Sneezing, itchy eyes, watery eyes Date Reviewed: 10/09/2017 Reviewed by: Guerrero Carranza - Fully Assessed Order(s):SURGICAL REQUEST - ELECTIVE [[id number]] Order #: [id number]: 1 Prescriptions as of 10/12/2017 Sig: IBUPROFEN 600 MG TABLET Take 1 tablet by mouth every * LEVOTHYROXINE 137 MCG TABLET TAKE 1 TABLET BY MOUTH DAILY * CHOLECALCIFEROL (VITAMIN D3) * Take 4,000 Units by mouth onc* LISINOPRIL 10 MG TABLET Take 10 mg by mouth once syed* SITAGLIPTIN 50 MG-METFORMIN E* Take by mouth once daily. GARLIC 1,000 MG CAPSULE Take 1 tablet by mouth once d* DOCUSATE SODIUM 100 MG CAPSULE Take 100 mg by mouth once brigido* METFORMIN ER 500 MG TABLET,EX* Take 1 tablet by mouth daily * ALEVE ORAL Take 1 tablet by mouth as nee* * VITAMIN C ORAL Take 500 mg by mouth once brigido* * CALCIUM WITH VITAMIN D ORAL Take 1 tablet by mouth once d* * ATENOLOL 25 MG TABLET Take one(1) tablet daily. Problem List As Of Date 10/12/2017 Noted Resolved NONTOX UNINODULAR GOITER [E04.1] INVALID FOR* Splenomegaly [R16.1] INVALID FOR* Biliary dyskinesia [K82.8] INVALID FOR*08/03/2017 Chronic cholecystitis [K81.1] INVALID FOR*08/03/2017 Thyroid cancer [C73] INVALID FOR* Essential hypertension [I10] INVALID FOR* Personal history of colonic polyps [Z86.010] INVALID FOR* Flank pain [R10.9] INVALID FOR* Encounter Status:Closed by ESTUARDO GILLILAND CNP on 10/12/17 PROGRESS Observed: 10/09/2017 Status: COMPLETED Source: [place] 6:00 PM [facility] [place] REPOSITORY HNO ID: [id number] Author: Guerrero Carranza Service: (none) Author Type: Physician Type: Progress Notes Filed: 10/09/2017 6:08 PM Note Text: DATE OF SERVICE: 10/09/2017 PROBLEM: Dayanara Murray is a consult from Dr. Wolf for evaluation of complex ovarian mass. SUBJECTIVE/HPI: Ms. Murray is a 57 year old female . She has a history of prior hysterectomy, she was diagnosed with complex ovarian on US that was done on 06/2017. She was taken to the OR for laparoscopic RSO on 09/17 and the surgery was aborted due to extensive adhesion to the bladder and sigmoid colon. She is here to discussed surgery. Pelvic US 06/2017 A slightly complex cystic lesion in the RIGHT adnexa measures 8.0 x 5.0 by 8.0 cm. ?No discrete ovary is identified. Left ovary: Surgically absent Pelvis free fluid: None CA-125: 13 on 07/27/2017 She reports that she feels well. No vaginal bleeding or discharge. No shortness of breath, cough, or chest pain. No abdominal pain, nausea, vomiting, diarrhea, or constipation. No dysuria, gross hematuria, urinary frequency, urinary urgency, or incontinence. Her ECOG performance status is zero (fully active, able to carry on all pre-disease performance without restriction). HISTORIES: PAST GYNECOLOGIC HISTORY: Obstetric History T2 L2 SAB0 TAB0 Ectopic0 Multiple0 Live Births0 LMP: No LMP recorded. Patient has had a hysterectomy. History of abnormal pap: No. Last pap: 09/2015 Last HPV: Last mammogram: Last colonoscopy: PAST SURGICAL HISTORY Procedure Laterality Date - COLONOSCOP W/ OR W/O [facility] SPEC 04-25-16 - HYSTERECTOMY HX 2006 partial hysterectomy-thinks one ovary left - LAP CHOLECYSTECT/CHOLANGIOGRAPHY 09-12-11 - LAPAROSCOPY, SURGICAL, SPLENECTOMY 09-12-11 - PAST SURGICAL HISTORY OF 2010 Gall Bladder - SHOULDER SURGERY HX Right 07/02/2016 [facility] - THYROID LOBECTOMY,UNILAT 05-26-13 RIGHT - THYROIDECTOMY POST PREV THYR SURG 07-14-13 LEFT--COMPLETION PAST MEDICAL HISTORY Diagnosis Date - Backache, unspecified - Diabetes (HCC) - Dysthymic disorder Depression (non-psychotic) - Esophageal reflux - Essential hypertension, malignant - Headache(784.0) - Hyperglycemia - Hypopotassemia - Iron deficiency anemia secondary to blood loss (chronic) - Nontoxic uninodular goiter - Other malaise and fatigue - Pain in joint, site unspecified - Pure hypercholesterolemia - Rosacea - Sciatica - Unspecified vitamin D deficiency - Urinary frequency FAMILY HISTORY Problem Relation Age of Onset - Heart Father [place] - COPD Sister - Diabetes Other Nephew - Cancer Sister cervical - Diabetes Sister - Hypertension Sister Family history of breast, ovarian, uterine or colon cancer: No Family history of VTE: No SOCIAL HISTORY Social History Substance Use Topics - Smoking status: Former Smoker Years: 10.00 Types: Cigarettes Quit date: 07/03/2001 - Smokeless tobacco: Never Used Comment: Pt smoked 2 packs a week for 10 years. - Alcohol use Yes Comment: seldom Occupation: Marital Status: Single REVIEW OF SYSTEMS: GENERAL: No recent weight loss, fever, chills, malaise or fatigue. HEENT: No changes in hearing or vision, frequent or severe headaches, nose bleeds or other nasal problems. NECK: No lumps, goiter, pain, significant neck swelling, or difficulty swallowing. RESPIRATORY: No shortness of breath, cough, wheezing, recent pneumonia (within last 6 weeks) or recent URI (within 2 weeks). CARDIOVASCULAR: No angina with activity or at rest, lower extremity edema, or palpitations. No recent MO (within 6 months), cardiac stent, cardiac surgery, gangrene, or PVD. No history of hypertension. BREAST: No breast lumps, skin changes, nipple discharge, or adenopathy. GI: No abdominal pain, nausea, vomiting, diarrhea, or constipation. No prior history of esophageal varicies or ascites. Patient denies drinking >2 alcoholic beverages a day. : No dysuria, gross hematuria, urinary frequency, urinary urgency, or incontinence. No history of renal failure, dialysis, or recent UTI (<6 weeks). MUSCULOSKELETAL: No muscle weakness or joint pain. SKIN: No skin lesions, rashes, or itching. PSYCH: No sleep disturbances, depression, bipolar disorder, drug dependency/history of drug dependency, or recent psychosocial stressors. HEMATOLOGY/LYMPHOLOGY: No prolonged bleeding, bruising easily, swollen nodes, or anemia. No prior history of a blood clot or clotting disorder. No prior history of a bleeding disorder. Not on chronic anticoagulant/platelet medications. ENDOCRINE: No cold or heat intolerance, polyuria, polydipsia, polyphagia, goiter, hot flashes or night sweats. No prior diagnosis of diabetes or thyroid disorder. No chronic steroid use. NEURO: No history of paralysis, stroke/TIA, seizures, tremors, syncope, or paresthesias. ECOG performance status is zero (fully active, able to carry on all pre-disease performance without restriction) Guerrero Carranza MD OBJECTIVE: VITALS: BP 148/99 Pulse 88 Temp 36.6 ?C (97.9 ?F) Wt 84.8 kg (187 lb) SpO2 97% BMI 32.1 kg/m2 GENERAL: Patient is a well developed, well nourished female. She is alert, oriented, pleasant and cooperative. SKIN: Color, texture, turgor normal. No rashes or lesions. HEENT: Normocephalic, atraumatic, mucus membranes moist and no lesions NECK: Supple, no adenopathy; thyroid symmetric, normal size, no bruits LUNGS: Clear to auscultation bilaterally. HEART: Regular rate and rhythm, no murmurs. BACK: No CVA tenderness or gross deformities. BREAST: deferred exam ABDOMEN: Abdomen soft, non-tender, no hepatosplenomegaly. PELVIC: Deferred LOWER EXTREMITIES: No pitting edema, no palpable cords and no skin changes. PROCEDURES: None ASSESSMENT: 57 year old woman with complex pelvic mass and extensive adhesion Prior hysterectomy and LSO PLAN: We had a long discussion regarding the result of her US. We discussed that her cyst could be benign, borderline or malignant. We discussed that the risk of cancer is about 5-7%. We then discussed treatment options and the plan was made to proceed with surgery. We discussed rationale, risks and benefits and surgical consent signed. I plan to do surgical staging if cancer or borderline tumor was found Total face to face time 60 minutes and more that 50% spent on counseling the patient and coordinating her care. Guerrero Carranza MD, MPH A letter and a copy of this office note were sent to: - Maddy Harris CNP [id number] [address] - Maddy Harris CNP (PCP) CNOV Observed: 10/09/2017 Status: COMPLETED Source: [place] 2:20 PM [facility] REPOSITORY Office Visit (GYNCMD) DAYANARA MURRAY ([id number]) 1960 F CHT Date Time Provider Department 10/09/17 2:20 PM GUERRERO CARRANZA GYNCMD During your visit today, we recorded the following information about you: Temperature Pulse Blood pressure Weight 97.9 degrees 88/minute 148/99 84.8 kg Guerrero Carranza MD 10/09/2017 6:08 PM Signed DATE OF SERVICE: 10/09/2017 PROBLEM: Dayanara Murray is a consult from Dr. Wolf for evaluation of complex ovarian mass. SUBJECTIVE/HPI: Ms. Murray is a 57 year old female . She has a history of prior hysterectomy, she was diagnosed with complex ovarian on US that was done on 06/2017. She was taken to the OR for laparoscopic RSO on 09/17 and the surgery was aborted due to extensive adhesion to the bladder and sigmoid colon. She is here to discussed surgery. Pelvic US 06/2017 A slightly complex cystic lesion in the RIGHT adnexa measures 8.0 x 5.0 by 8.0 cm. ?No discrete ovary is identified. Left ovary: Surgically absent Pelvis free fluid: None CA-125: 13 on 07/27/2017 She reports that she feels well. No vaginal bleeding or discharge. No shortness of breath, cough, or chest pain. No abdominal pain, nausea, vomiting, diarrhea, or constipation. No dysuria, gross hematuria, urinary frequency, urinary urgency, or incontinence. Her ECOG performance status is zero (fully active, able to carry on all pre-disease performance without restriction). HISTORIES: PAST GYNECOLOGIC HISTORY: Obstetric History T2 L2 SAB0 TAB0 Ectopic0 Multiple0 Live Births0 LMP: No LMP recorded. Patient has had a hysterectomy. History of abnormal pap: No. Last pap: 09/2015 Last HPV: Last mammogram: Last colonoscopy: PAST SURGICAL HISTORY Procedure Laterality Date - COLONOSCOP W/ OR W/O [facility] SPEC 04-25-16 - HYSTERECTOMY HX 2006 partial hysterectomy-thinks one ovary left - LAP CHOLECYSTECT/CHOLANGIOGRAPHY 3-9-12 - LAPAROSCOPY, SURGICAL, SPLENECTOMY 09-12-11 - PAST SURGICAL HISTORY OF 2010 Gall Bladder - SHOULDER SURGERY HX Right 07/02/2016 [facility] - THYROID LOBECTOMY,UNILAT 05-26-13 RIGHT - THYROIDECTOMY POST PREV THYR SURG 07-14-13 LEFT--COMPLETION PAST MEDICAL HISTORY Diagnosis Date - Backache, unspecified - Diabetes (HCC) - Dysthymic disorder Depression (non-psychotic) - Esophageal reflux - Essential hypertension, malignant - Headache(784.0) - Hyperglycemia - Hypopotassemia - Iron deficiency anemia secondary to blood loss (chronic) - Nontoxic uninodular goiter - Other malaise and fatigue - Pain in joint, site unspecified - Pure hypercholesterolemia - Rosacea - Sciatica - Unspecified vitamin D deficiency - Urinary frequency FAMILY HISTORY Problem Relation Age of Onset - Heart Father [place] - COPD Sister - Diabetes Other Nephew - Cancer Sister cervical - Diabetes Sister - Hypertension Sister Family history of breast, ovarian, uterine or colon cancer: No Family history of VTE: No SOCIAL HISTORY Social History Substance Use Topics - Smoking status: Former Smoker Years: 10.00 Types: Cigarettes Quit date: 07/03/2001 - Smokeless tobacco: Never Used Comment: Pt smoked 2 packs a week for 10 years. - Alcohol use Yes Comment: seldom Occupation: Marital Status: Single REVIEW OF SYSTEMS: GENERAL: No recent weight loss, fever, chills, malaise or fatigue. HEENT: No changes in hearing or vision, frequent or severe headaches, nose bleeds or other nasal problems. NECK: No lumps, goiter, pain, significant neck swelling, or difficulty swallowing. RESPIRATORY: No shortness of breath, cough, wheezing, recent pneumonia (within last 6 weeks) or recent URI (within 2 weeks). CARDIOVASCULAR: No angina with activity or at rest, lower extremity edema, or palpitations. No recent MO (within 6 months), cardiac stent, cardiac surgery, gangrene, or PVD. No history of hypertension. BREAST: No breast lumps, skin changes, nipple discharge, or adenopathy. GI: No abdominal pain, nausea, vomiting, diarrhea, or constipation. No prior history of esophageal varicies or ascites. Patient denies drinking ANDgt;2 alcoholic beverages a day. : No dysuria, gross hematuria, urinary frequency, urinary urgency, or incontinence. No history of renal failure, dialysis, or recent UTI (ANDlt;6 weeks). MUSCULOSKELETAL: No muscle weakness or joint pain. SKIN: No skin lesions, rashes, or itching. PSYCH: No sleep disturbances, depression, bipolar disorder, drug dependency/history of drug dependency, or recent psychosocial stressors. HEMATOLOGY/LYMPHOLOGY: No prolonged bleeding, bruising easily, swollen nodes, or anemia. No prior history of a blood clot or clotting disorder. No prior history of a bleeding disorder. Not on chronic anticoagulant/platelet medications. ENDOCRINE: No cold or heat intolerance, polyuria, polydipsia, polyphagia, goiter, hot flashes or night sweats. No prior diagnosis of diabetes or thyroid disorder. No chronic steroid use. NEURO: No history of paralysis, stroke/TIA, seizures, tremors, syncope, or paresthesias. ECOG performance status is zero (fully active, able to carry on all pre-disease performance without restriction) Guerrero Carranza MD OBJECTIVE: VITALS: BP 148/99 Pulse 88 Temp 36.6 ?C (97.9 ?F) Wt 84.8 kg (187 lb) SpO2 97% BMI 32.1 kg/m2 GENERAL: Patient is a well developed, well nourished female. She is alert, oriented, pleasant and cooperative. SKIN: Color, texture, turgor normal. No rashes or lesions. HEENT: Normocephalic, atraumatic, mucus membranes moist and no lesions NECK: Supple, no adenopathy; thyroid symmetric, normal size, no bruits LUNGS: Clear to auscultation bilaterally. HEART: Regular rate and rhythm, no murmurs. BACK: No CVA tenderness or gross deformities. BREAST: deferred exam ABDOMEN: Abdomen soft, non-tender, no hepatosplenomegaly. PELVIC: Deferred LOWER EXTREMITIES: No pitting edema, no palpable cords and no skin changes. PROCEDURES: None ASSESSMENT: 57 year old woman with complex pelvic mass and extensive adhesion Prior hysterectomy and LSO PLAN: We had a long discussion regarding the result of her US. We discussed that her cyst could be benign, borderline or malignant. We discussed that the risk of cancer is about 5-7%. We then discussed treatment options and the plan was made to proceed with surgery. We discussed rationale, risks and benefits and surgical consent signed. I plan to do surgical staging if cancer or borderline tumor was found Total face to face time 60 minutes and more that 50% spent on counseling the patient and coordinating her care. Guerrero Carranza MD, MPH A letter and a copy of this office note were sent to: - Maddy Harris CNP [id number] [address] - Maddy Harris CNP (PCP) Referring Provider: MADDY HARRIS [[id number]] Allergies As of Date: 10/09/2017 Noted Allergy Reaction ADHESIVE 08/05/2016 1 - Mental Status Change 2 - Rash Comments: Blisters HORSE HAIR AND DANDER 08/22/2013 14 - Other: See Comments Comments: Had testing MORPHINE HCL 12/04/2015 14 - Other: See Comments Comments: Pulse dropped SEASONAL ALLERGIES 08/22/2013 14 - Other: See Comments Comments: Sneezing, itchy eyes, watery eyes Date Reviewed: 10/09/2017 Reviewed by: Guerrero Carranza - Fully Assessed Reason for Visit: New Patient [172] Cmt: found a mass on right ovary - had a hysterectomy but left one ovary Primary Visit Diagnosis:Generalized abdominal or pelvic swelling or mass or lump [R19.07] Prescriptions as of 10/09/2017 Sig: LEVOTHYROXINE 137 MCG TABLET TAKE 1 TABLET BY MOUTH DAILY * LISINOPRIL 10 MG TABLET Take 10 mg by mouth once syed* SITAGLIPTIN 50 MG-METFORMIN E* Take by mouth once daily. METFORMIN ER 500 MG TABLET,EX* Take 1 tablet by mouth daily * * VITAMIN C ORAL Take 500 mg by mouth once brigido* * ATENOLOL 25 MG TABLET Take one(1) tablet daily. IBUPROFEN 600 MG TABLET Take 1 tablet by mouth every * CHOLECALCIFEROL (VITAMIN D3) * Take 4,000 Units by mouth onc* GARLIC 1,000 MG CAPSULE Take 1 tablet by mouth once d* DOCUSATE SODIUM 100 MG CAPSULE Take 100 mg by mouth once brigido* ALEVE ORAL Take 1 tablet by mouth as nee* * CALCIUM WITH VITAMIN D ORAL Take 1 tablet by mouth once d* Problem List As Of Date 10/09/2017 Noted Resolved NONTOX UNINODULAR GOITER [E04.1] INVALID FOR* Splenomegaly [R16.1] INVALID FOR* Biliary dyskinesia [K82.8] INVALID FOR*08/03/2017 Chronic cholecystitis [K81.1] INVALID FOR*08/03/2017 Thyroid cancer [C73] INVALID FOR* Essential hypertension [I10] INVALID FOR* Personal history of colonic polyps [Z86.010] INVALID FOR* Flank pain [R10.9] INVALID FOR* Follow-up and Disposition History Recorded Encounter Status:Closed by GUERRERO CARRANZA MD on 10/09/17 CBC Collected: 10/09/2017 Status: F Source: [facility] 8:58 AM [facility] REPOSITORY TYPE CODE TESTS RESULT OUT OF REFERENCE UNITS RANGE LAB WBC(LOINC) 4.60-10.80 10 3/mcL High WBC 11.20 LAB RBCCT(LOINC 4.20-5.40 10 6/mcL ) RBC 4.95 LAB HGB(LOINC) 12.0-16.0 G/dL Hgb 15.1 LAB HCT(LOINC) 37.0-47.0 % Hct 44.7 LAB MCV(LOINC) 80.0-94.0 fL MCV 90.3 LAB MCH(LOINC) 27.0-31.2 pg MCH 30.6 LAB MCHC(LOINC) 33.0-37.0 G/dL MCHC 33.9 LAB RDW(LOINC) 11.5-14.5 % RDW 13.1 LAB PLT(LOINC) 130-400 10 3/mcL Platelet 366 LAB MPV(LOINC) 7.4-10.4 fL High MPV 11.1 Performed By: #### CBC, ADIFF, ANEU, LIPID, CMP, GFR #### [place] [address] .AUTO DIFF Collected: 10/09/2017 Status: F Source: [facility] 8:58 AM [facility] REPOSITORY TYPE CODE TESTS RESULT OUT OF REFERENCE UNITS RANGE LAB GUADALUPE(LOINC) 37.0-80.0 % Neutrophil % 45.8 LAB LYM(LOINC) 10.0-50.0 % Lymphocyte % 42.7 LAB MON(LOINC) 1.7-13.0 % Monocyte % 8.4 LAB EO(LOINC) 0.0-7.0 % Eosinophil % 2.2 LAB BAS(LOINC) 0.0-2.5 % Basophil % 0.9 LAB ABLYM(LOIN 0.77-3.85 10 3/mcL C) High Lymphocyte, 4.80 Absolute LAB LUIS ANTONIO(LOINC 0.15-1.00 10 3/mcL ) Monocyte, 0.90 Absolute LAB AEOS(LOINC 0.00-0.40 10 3/mcL ) Eosinophil, 0.20 Absolute LAB ABAS(LOINC 0.00-0.19 10 3/mcL ) Basophil, 0.10 Absolute Performed By: #### CBC, ADIFF, ANEU, LIPID, CMP, GFR #### [place] [address] [place], [place] [address] .NEUABS Collected: 10/09/2017 Status: F Source: [facility] 8:58 AM [facility] REPOSITORY TYPE CODE TESTS RESULT OUT OF REFERENCE UNITS RANGE LAB ANEU(LOINC) 2.85-6.16 10 3/mcL Neutrophil, 5.10 Absolute Performed By: #### CBC, ADIFF, ANEU, LIPID, CMP, GFR #### [place] [address] [place], [place] [address] LIPID Collected: 10/09/2017 Status: F Source: [email or web address] 8:58 AM [facility] REPOSITORY TYPE CODE TESTS RESULT OUT OF REFERENCE UNITS RANGE LAB CHOL(LOINC 131-200 mg/dL ) Cholesterol High 224 Result Comment: Cholesterol Reference Interval: Less than 200 Desirable 200-239 Borderline high risk 240 and above High risk LAB TRIG(LOINC) 40-150 mg/dL Triglycerides High 157 Result Comment: Triglyceride Reference Interval: Less than 150 Normal 150-199 Borderline high risk 200-499 High risk 500 or higher Very high risk LAB HD(LOINC) 35-90 mg/dL HDL Cholesterol 52 Result Comment: HDL Reference Interval: Less than 40 Low - high risk 60 or above Optimal/lowers risk LAB LDL(LOINC) 0-130 mg/dL LDL High Cholesterol 141 Result Comment: LDL is a calculated result and requires a 12-hr fast. LDL Reference Interval: Less than 100 Optimal 100-129 Near or above optimal 130-159 Borderline high risk 160-189 High risk 190 and above Very high risk Performed By: #### CBC, ADIFF, ANEU, LIPID, CMP, GFR #### [place] [address] [place], [place] [address] CMP Collected: 10/09/2017 Status: F Source: [email or web address] 8:58 AM [facility] REPOSITORY TYPE CODE TESTS RESULT OUT OF REFERENCE UNITS RANGE LAB 1547-9 70-105 mg/dL GLUCOSE High 108 LAB NA(LOINC) 136-146 mEq/L Sodium Level 140 LAB K(LOINC) 3.5-5.1 mEq/L Potassium Level 4.8 LAB CL(LOINC) 98-107 mEq/L Chloride 102 LAB CO2(LOINC) 22-29 mEq/L CO2 High 30 LAB EBAL(LOINC mEq/L ) Electrolyte Balance 8.0 LAB BUN(LOINC) 7.0-18.0 mg/dL BUN 12.8 LAB CRE(LOINC) 0.6-1.2 mg/dL Creatinine Lvl (s) 0.7 LAB BC(LOINC) 7-27 ratio BUN/Creatinine 18 Ratio LAB CA(LOINC) 8.4-10.2 mg/dL Calcium Lvl 9.8 LAB PROT(LOINC 6.0-8.3 G/dL ) Total Protein 7.6 LAB ALB(LOINC) 3.5-5.0 G/dL Albumin Level 4.4 LAB GLB(LOINC) G/dL Globulin 3.2 LAB AG(LOINC) 1.1-2.5 ratio A/G Ratio 1.4 LAB BILT(LOINC 0.2-1.0 mg/dL ) Bili Total 0.4 LAB AP(LOINC) 40-135 IU/L Alk Phos 70 LAB AST(LOINC) 10-40 IU/L AST/SGOT 21 LAB ALT(LOINC) 10-35 IU/L ALT/SGPT 21 Performed By: #### CBC, ADIFF, ANEU, LIPID, CMP, GFR #### [place] [address] .GFR Collected: 10/09/2017 Status: F Source: [facility] 8:58 AM [facility] REPOSITORY TYPE CODE TESTS RESULT OUT OF REFERENCE UNITS RANGE LAB GFRAA(LOINC ml/min/1.73 ) sqm GFR 105 [place] Result Comment: GFR Population mean for , Non- Americans Ages 20-29 = 116 mL/min/1.73 sq.m. Ages 30-39 = 107 mL/min/1.73 sq.m. Ages 40-49 = 99 mL/min/1.73 sq.m. Ages 50-59 = 93 mL/min/1.73 sq.m. Ages 60-69 = 85 mL/min/1.73 sq.m. Ages 70+ = 75 mL/min/1.73 sq.m. Chronic Kidney Disease: Less than 60 mL/min/1.73 square meters End Stage Renal Disease: Less than 15 mL/min/1.73 square meters LAB GFRNO(LOINC) ml/min/1.73sqm GFR Non- >60 Result Comment: GFR Population mean for , Non- Americans Ages 20-29 = 116 mL/min/1.73 sq.m. Ages 30-39 = 107 mL/min/1.73 sq.m. Ages 40-49 = 99 mL/min/1.73 sq.m. Ages 50-59 = 93 mL/min/1.73 sq.m. Ages 60-69 = 85 mL/min/1.73 sq.m. Ages 70+ = 75 mL/min/1.73 sq.m. Chronic Kidney Disease: Less than 60 mL/min/1.73 square meters End Stage Renal Disease: Less than 15 mL/min/1.73 square meters Performed By: #### CBC, ADIFF, ANEU, LIPID, CMP, GFR #### [address] [address] PROGRESS Observed: 10/07/2017 Status: COMPLETED Source: [place] 10:13 AM [facility] REPOSITORY HNO ID: [id number] Author: Mika Velazquez Service: (none) Author Type: Physician Type: Progress Notes Filed: 10/07/2017 10:40 AM Note Text: SUBJECTIVE: 57 year old female presents for 2 week post-op exam. Doing well postop. No fever. Pressure on bladder. Frequency of urination. Was having this before surgery and has been going on for about a year. OBJECTIVE: Incision: Dry and intact, without redness suture removed from lateral port site Abdomen: Soft, Non-tender, No palpable masses and No hepatosplenomegaly. PLAN: F/u w/ live in housekeeper oncology I have reviewed and updated past medical and surgical history, medications and allergies. Mika Velazquez MD CNOV Observed: 10/07/2017 Status: COMPLETED Source: [place] 10:10 AM [facility] REPOSITORY Office Visit (WOOB) DAYANARA MURRAY ([id number]) 1960 F CHT Date Time Provider Department 10/07/17 10:10 AM MIKA VELAZQUEZ During your visit today, we recorded the following information about you: Blood pressure Weight 124/78 84.8 kg Mika Velazquez MD 10/07/2017 10:40 AM Signed SUBJECTIVE: 57 year old female presents for 2 week post-op exam. Doing well postop. No fever. Pressure on bladder. Frequency of urination. Was having this before surgery and has been going on for about a year. OBJECTIVE: Incision: Dry and intact, without redness suture removed from lateral port site Abdomen: Soft, Non-tender, No palpable masses and No hepatosplenomegaly. PLAN: F/u w/ live in housekeeper oncology I have reviewed and updated past medical and surgical history, medications and allergies. Mika Velazquez MD Referring Provider: SELF [[id number]] Allergies As of Date: 10/07/2017 Noted Allergy Reaction ADHESIVE 08/05/2016 1 - Mental Status Change 2 - Rash Comments: Blisters HORSE HAIR AND DANDER 08/22/2013 14 - Other: See Comments Comments: Had testing MORPHINE HCL 12/04/2015 14 - Other: See Comments Comments: Pulse dropped SEASONAL ALLERGIES 08/22/2013 14 - Other: See Comments Comments: Sneezing, itchy eyes, watery eyes Date Reviewed: 10/07/2017 Reviewed by: Rhoda Shepard Ma - Fully Assessed Reason for Visit: Post Op [174] Primary Visit Diagnosis:Postop check [Z09] Prescriptions as of 10/07/2017 Sig: IBUPROFEN 600 MG TABLET Take 1 tablet by mouth every * LEVOTHYROXINE 137 MCG TABLET TAKE 1 TABLET BY MOUTH DAILY * CHOLECALCIFEROL (VITAMIN D3) * Take 4,000 Units by mouth onc* LISINOPRIL 10 MG TABLET Take 10 mg by mouth once syed* SITAGLIPTIN 50 MG-METFORMIN E* Take by mouth once daily. GARLIC 1,000 MG CAPSULE Take 1 tablet by mouth once d* DOCUSATE SODIUM 100 MG CAPSULE Take 100 mg by mouth once brigido* METFORMIN ER 500 MG TABLET,EX* Take 1 tablet by mouth daily * ALEVE ORAL Take 1 tablet by mouth as nee* * VITAMIN C ORAL Take 500 mg by mouth once brigido* * CALCIUM WITH VITAMIN D ORAL Take 1 tablet by mouth once d* * ATENOLOL 25 MG TABLET Take one(1) tablet daily. Problem List As Of Date 10/07/2017 Noted Resolved NONTOX UNINODULAR GOITER [E04.1] INVALID FOR* Splenomegaly [R16.1] INVALID FOR* Biliary dyskinesia [K82.8] INVALID FOR*08/03/2017 Chronic cholecystitis [K81.1] INVALID FOR*08/03/2017 Thyroid cancer [C73] INVALID FOR* Essential hypertension [I10] INVALID FOR* Personal history of colonic polyps [Z86.010] INVALID FOR* Flank pain [R10.9] INVALID FOR* Letter Text Mika Velazquez M.D. [address] [address] 10/07/2017 RE: Dayanara Murray : 1960 To Whom It May Concern: Dayanara has been under my care and may return to work with no restrictions on 10/12/2017 Sincerely, Mika Velazquez M.D. Encounter Status:Closed by MIKA VELAZQUEZ MD on 10/07/17 CNPN Observed: 10/06/2017 Status: COMPLETED Source: [place] 12:00 AM [facility] REPOSITORY Telephone (WOOB) DAYANARA MURRAY ([id number]) 1960 F [facility] Date Time Provider Department 10/06/17 MIKA VELAZQUEZ During your visit today, we recorded the following information about you: Mika Velazquez MD 10/06/2017 1:42 PM Signed Patient wondering about short term disability forms, states she has a letter from them. Needs info on office visits and notes. Needs release back to work. Can you see what we have sent or have for her. She will likely drop this off tomorrow. Myself or someone can see her for brief visit and check incisions and release her back to work next week. I spoke w/ patient about results of MRI, concerning for possible ovarian cancer. When I did her surgery she had extensive adhesions with sigmoid d/w her need for referral to live in housekeeper oncology. Likely BSO, lysis of adhesions, possible colon resection and staging. She has anxiety about driving in traffic and not a lot of people she can ask to help her w/ transportation. Is comfortable scheduling consultation w/ Dr. Carranza in [place] and then when surgery scheduled will arrange transportation. Consultation ordered. I will forward this note to Dr. Carranza and ask his office to contact Siri to schedule her consult. Thanks. MD Sherrill Roman LPN 10/06/2017 3:49 PM Signed Patient is going to bring letter to office tomorrow. Patient will await call from Dr. Carranza's office for appointment Tashia Tiwari RN 10/08/2017 10:14 AM Signed Our office called and got patient scheduled with Dr. Carranza on 10/09/17 @ 2:20. Thank you! Tashia Tiwari RN Allergies As of Date: 10/06/2017 Noted Allergy Reaction ADHESIVE 08/05/2016 1 - Mental Status Change 2 - Rash Comments: Blisters HORSE HAIR AND DANDER 08/22/2013 14 - Other: See Comments Comments: Had testing MORPHINE HCL 12/04/2015 14 - Other: See Comments Comments: Pulse dropped SEASONAL ALLERGIES 08/22/2013 14 - Other: See Comments Comments: Sneezing, itchy eyes, watery eyes Date Reviewed: 09/14/2017 Reviewed by: Mika Velazquez - Fully Assessed Reason for Visit: Results [95] Prescriptions as of 10/06/2017 Sig: IBUPROFEN 600 MG TABLET Take 1 tablet by mouth every * LEVOTHYROXINE 137 MCG TABLET TAKE 1 TABLET BY MOUTH DAILY * CHOLECALCIFEROL (VITAMIN D3) * Take 4,000 Units by mouth onc* LISINOPRIL 10 MG TABLET Take 10 mg by mouth once syed* SITAGLIPTIN 50 MG-METFORMIN E* Take by mouth once daily. GARLIC 1,000 MG CAPSULE Take 1 tablet by mouth once d* DOCUSATE SODIUM 100 MG CAPSULE Take 100 mg by mouth once brigido* METFORMIN ER 500 MG TABLET,EX* Take 1 tablet by mouth daily * ALEVE ORAL Take 1 tablet by mouth as nee* * VITAMIN C ORAL Take 500 mg by mouth once brigido* * CALCIUM WITH VITAMIN D ORAL Take 1 tablet by mouth once d* * ATENOLOL 25 MG TABLET Take one(1) tablet daily. Problem List As Of Date 10/06/2017 Noted Resolved NONTOX UNINODULAR GOITER [E04.1] INVALID FOR* Splenomegaly [R16.1] INVALID FOR* Biliary dyskinesia [K82.8] INVALID FOR*08/03/2017 Chronic cholecystitis [K81.1] INVALID FOR*08/03/2017 Thyroid cancer [C73] INVALID FOR* Essential hypertension [I10] INVALID FOR* Personal history of colonic polyps [Z86.010] INVALID FOR* Flank pain [R10.9] INVALID FOR* Encounter Status:Closed by SHERRILL MORALES LPN on 10/06/17 MRI PELVIS WO/W Observed: 10/05/2017 Status: F Source: [place] IVCON 8:19 PM [facility] OTHER [facility] REPOSITORY * * *Final Report* * * DATE OF EXAM: Oct 05 2017 8:19PM [facility] 0742 - MRI PELVIS WO/W IVCON / PROCEDURE REASON: multiple diagnoses * * * * Physician Interpretation * * * * HISTORY: Indeterminate pelvic cystic mass TECHNIQUE: Multiplanar multisequence noncontrast and biphasic postcontrast images with 16 cc IV Dotarem COMPARISON: 06/10/2017 ultrasound pelvis RESULT: 6.9 x 5.8 x 5.5 cm cystic pelvic mass is just to the right of the midline anteriorly and abuts the upper portion of the urinary bladder to the right and compresses the bladder and is also contiguous with a portion of the sigmoid colon. The mass is mainly bright signal cystic appearing but in left lateral portion of the mass there are cystic and solid elements which do show definite enhancement. This mass corresponds to the mass shown on the previous ultrasound. Left ovary is not seen and by history most likely has been removed. The right ovary is thought to be separate from the mass, more laterally to the right and posteriorly and slightly cephalad, series 7 image 13 and is measured at 2.4 x 1.2 cm. Perhaps the mass arises from an unresected remnant of left ovary. There is no obvious invasion of surrounding structures. No lymphadenopathy is seen. No free fluid is seen in the pelvis. IMPRESSION: 6.9 cm complex cystic mass has an appearance suggestive of ovarian neoplasm and presumably should be removed. Mass abuts and compresses the urinary bladder and abuts the sigmoid colon without definite invasion. Mileage Clerk: PSCB Transcribe Date/Time: Oct 06 2017 8:56A Dictated by : EVERETT MARTINEZ MD This examination was interpreted and the report reviewed and electronically signed by: EVERETT MARTINEZ MD on Oct 06 2017 9:55AM EST [id number] PROGRESS Observed: 10/05/2017 Status: COMPLETED Source: [place] 7:55 PM [facility] OTHER [facility] REPOSITORY HNO ID: [id number] Author: Caren (Lina) Lina Brower Service: (none) Author Type: Price Checker Type: Progress Notes Filed: 10/06/2017 1:13 PM Note Text: Radiology Service Progress Note PATIENT NAME: Dayanara Murray DATE OF SERVICE: October 05, 2017 TIME: 7:55 PM PATIENT IDENTITY VERIFICATION COMPLETED USING TWO (2) METHODS: Patient confirmed name verbally and ID band matches. and Patient confirmed name verbally. PATIENT GENDER DATA: Female. status: : No status: NO. PATIENT RELEVANT IMPLANT DATA REVIEWED: Yes CONTRAST INDUCED NEPHROPATHY RISK FACTORS: Not applicable CREATININE: Creatinine Date Value Ref Range Status 07/18/2011 0.69 (L) 0.70 - 1.40 mg/dL Final Creatinine, Whole Blood (iSTAT) Date Value Ref Range Status 06/13/2013 1.10 0.70 - 1.40 mg/dL Final eGFR-All Other Races Date Value Ref Range Status 06/13/2013 52 . Final Comment: eGFR (Estimated GFR) Units of measure: mL/min/1.73 meters squared eGFR is derived from the reexpressed MDRD Study equation using the following parameters: serum creatinine, age, gender and race. The creatinine assay has been calibrated to be traceable to IDMS. An eGFR <60 mL/min/1.73m2 for >3 months is consistent with chronic kidney disease. Refer to KDOQI guidelines for clinical interpretation. eGFR- Date Value Ref Range Status 06/13/2013 >60 Final P.O.C.T. RESULTS: N/A October 05, 2017 RADIOLOGIST NOTIFIED?: No ALLERGIES: Reviewed and unchanged CONTRAST ALLERGY: NO. PERIPHERAL IV ACCESS: Ambulatory: IV type: A peripheral IV was started in the Right antecubital site with a Angio cath: 22 gauge., Site assessment: Clean,Dry and Intact, Site disposition Discontinued RADIOLOGY DEPARTMENT: MR; Exam(s) Completed: Body: Female Pelvis SIGNED BY: Caren Brower pizza hut assistant October 05, 2017 7:55 PM US BREAST RIGHT Observed: 09/29/2017 Status: F Source: [employer] [facility] 1:00 PM FOUNDATION REPOSITORY ORIGINAL FROM: [place] [address] PROCEDURE FOR: DAYANARA MURRAY [address] [place] [address] Home: PID#: [id number] Exam#: [id number] : 1960 Age: 56 TO: MADDY HARRIS [facility] [address] [place] [address] #[id number] ULTRASOUND OF RIGHT BREAST: 09/29/2017 CLINICAL: ARCHITECTURAL DISTORTION RIGHT BREAST. Comparison is made to exams dated: 09/25/2017 mammogram, 09/18/2016 mammogram, and 08/29/2008 mammogram - [facility]. Real-time ultrasound of the right breast was performed. There are no findings to correlate with the mammographic findings. IMPRESSION: PROBABLY BENIGN - FOLLOW-UP RECOMMENDED Negative sonogram. Since the mammographic lesion is probably benign, a follow-up right diagnostic mammogram in 6 months is recommended to demonstrate stability. Shamar Nielson M.D., Cynthia tbp/:10/02/2017 15:45:31 Cobbler Sole: VINAY JOHANSEN RDWV, [facility] letter sent: Probably Benign BI-RADS 3 Ultrasound BI-RADS: 3 Probably benign BD BONE DENSITY DEXA Observed: 09/25/2017 Status: F Source: [facility] AXIAL [place] 10:00 AM [facility] REPOSITORY ORIGINAL BONE DENSITOMETRY CLINICAL STATEMENT: SCREENING, POST MENOPAUSAL COMPARISON: 07/17/2015 T. Score Left Femoral Neck: 0.1 BMD (g/cm2) Left Femoral Neck: 0.857 T. Score Left Hip: 1.0 BMD (g/cm2) Left Hip: .067 T. Score Lumbar Spine L1-L4: -1.0 BMD (g/cm2) Lumbar Spine L1-L4: 0.939 CONCLUSION: The patient is considered to have normal bone density based on the left femoral neck which has a T score of 0.1. The total left hip T score is 1.0. The lumbar spine T score is -1.. BMD Change from previous Hip: -4.6 Percent BMD Change from previous Lumbar Spine:-4.5 Percent *By the World Health Organization standards: Osteopenia is present when the bone mineral density is greater than 1 standard deviation (SD) but less than 2.5 SDs below a young normal sex matched populati on. Osteoporosis is present when the bone mineral density is equal to or greater than 2.5 SDs below a young normal sex matched population. Interpreted By: Bharat Otto MD Preliminary Report By: Bharat Otto MD Electronically Signed By: Bharat Otto MD Dictated Date: 09/25/2017 1:16:52 PM Prelim Date: 09/25/2017 1:16:52 PM Sign Date: 09/25/2017 1:18:00 PM MA MAMMOGRAM SCREENING Observed: 09/25/2017 Status: F Source: [facility] BILATERAL W/[place] 9:30 AM [facility] REPOSITORY ORIGINAL FROM: [address] [address] PROCEDURE FOR: DAYANARA MURRAY [address] [place] [address] Home: PID#: [id number] Exam#: [id number] : 1960 Age: 56 TO: MADDY HARRIS [employer] [address] [place], [place] [address] #[id number] DIGITAL SCREENING MAMMOGRAM 3D/2D WITH CAD WITH MEDIOLATERAL OBLIQUE CRANIOCAUDAL: 09/25/2017 Comparison is made to exams dated: 09/18/2016 mammogram and 09/15/2015 mammogram - [facility]. There are scattered fibroglandular elements in both breasts. Current study was also evaluated with a Computer Aided Detection (CAD) system. There is a new 2 cm focal asymmetry in the right breast central to the nipple posterior depth. This is seen in additional views. No other significant masses, calcifications, or other findings are seen in either breast. IMPRESSION: INCOMPLETE: NEEDS ADDITIONAL IMAGING EVALUATION The new 2 cm focal asymmetry in the right breast likely represents fibroglandular tissue and appears indeterminate. An ultrasound examination is recommended for the mass. We will contact the patient to arrange for the ultrasound exam. DEONDRE REYES MD ab/:09/25/2017 16:40:15 Cobbler Sole: JONATAN LOPEZ (R)(M), [facility] letter sent: Abnormal-Needs W/U BI-RADS 0 Mammogram BI-RADS: 0 Indeterminate PROGRESS Observed: 09/20/2017 Status: COMPLETED Source: [place] 7:28 PM [facility] [place] REPOSITORY HNO ID: [id number] Author: Mika Velazquez Service: (none) Author Type: Physician Type: Progress Notes Filed: 09/20/2017 7:32 PM Note Text: Patient underwent a diagnostic laparoscopy at [facility] on 09/17/17. Planned RSO for pelvic pain and ovarian cyst. The mass was firm, over the bladder and adhered to the cuff and bladder and to sigmoid colon as well. Right ovary appeared to be embeded in bowel and adhered to posterior pelvic wall under the mass and appeared small and separate from the mass. MRI recommended. Mika Velazquez MD 12 LEAD ELECTROCARDIOGRAM Observed: 09/18/2017 Status: F Source: [place] 1:36 PM [facility] REPOSITORY [facility] Cardiovascular Services [address] [place] [address] 12 Lead EKG 09/16/17 1620 MR#: [id number] Acct: [id number] Name: DAYANARA MURRAY Rep #: [id number] : 1960 56 From: Rod Bender MD Attending Dr: Mika Velazquez MD Status: [facility] Ordering Dr: Mika Velazquez MD Date: 09/16/17 Location: [facility] Sex: F C Admitted: Test Reason : PRE OP Blood Pressure : / mmHG Vent. Rate : 073 BPM Atrial Rate : 073 BPM P-R Int : 144 ms QRS Dur : 084 ms QT Int : 400 ms P-R-T Axes : 046 065 055 degrees QTc Int : 440 ms Normal sinus rhythm Normal ECG Confirmed by YULIA JOHNSON, ROD ([id number]), slot editor ALEJANDRA AGOSTO ([id number]) on 09/18/2017 1:36:25 PM Referred By: Mika Velazquez Confirmed By:ROD BENDER MD 09/18/17 1336 Date Rod Bender MD CC: Maddy Harris NP; Mika Velazquez MD Signed BEDSIDE GLUCOSE Collected: 09/17/2017 Status: F Source: [place] 3:38 PM [facility] REPOSITORY TYPE CODE TESTS RESULT OUT OF RANGE REFERENCE UNITS LAB L501.080 70-110 mg/dL Normal BEDSIDE GLU 98 Result Comment: MANAGEMENT OF PATIENT CARE PER NURSING PROTOCOL Performed By: #### L501.080 #### [facility] Point of Care [address] [place] [address] OPERATIVE REPORT Observed: 09/17/2017 Status: F Source: [place] 3:03 PM [facility] REPOSITORY [facility] Medical Records Department [address] [place] [address] Operative Report 09/17/17 1454 MR#: [id number] Acct: [id number] Name: DAYANARA MURRAY Rep #: [id number] : 1960 56 From: Mika Velazquez MD PCP: Maddy Harris NP Status: REG SDC Y Location: [place] [address]1 Report of Operation Date of Procedure: 09/17/17 Pre-Operative Diagnosis: complex right adexexal mass Post-Operative Diagnosis: Pelvic mass, adhesions of colon to anterior abdominal wall and vaginal cuff Surgery/Procedure Performed:: Diagnostic laparascopy, cystoscopy Description of Surgical Findings:: pelvic mass in midline over bladder and vaginal cufff, ovary not well defined but under adehsions. Adhesions of colon to anterior abdominal wall clinical physician assistant: Angela Baumann clinical physician assistant: Zaki MS3 Type of Anesthesia:: General Anesthesiologist: Judit Sahni Special Medications: none Specimen's removed: none Drains: none Estimated Blood Loss (mL): 10cc Fluids Replaced: 500 cc LR Description of Procedure: The patient was taken to the operating room where she was prepped and draped in the dorsolithotomy position. A sponge stick was placed in the vagina countertraction against the vaginal cuff. Attention was turned to the abdomen. All port sites were infiltrated with 0.5% Marcaine before skin incisions were made. A 5 mm intraumbilical incision was made. The anterior abdominal wall [...] inferior epigastric vessels. The bowel was swept away. There was [...] adhesions that appeared to be the ovary. This appeared to be separate from the mass. [...] to enter the urethra. The bladder was distended with normal saline and the bladder was intact without masses or lesions. There is no obvious deformity of the bladder from the pelvic mass. At this point the decision was made to end the case and if the patient desires further intervention we will recommend consultation with [employer] [facility] oncology at a tertiary care center. The lateral ports were removed under direct visualization and no active bleeding was noted. The [...] Not Indicated 09/17/17 1503 <Electronically signed by Mika Velazquez MD> Date Mika Velazquez MD CC: Maddy Harris NP; Mika Velazquez MD Signed OPERATIVE REPORT Observed: 09/17/2017 Status: F Source: [place] 2:54 PM [facility] REPOSITORY [facility] Medical Records Department [address] [place] [address] Operative Report 09/17/17 1310 MR#: [id number] Acct: [id number] Name: DAYANARA MURRAY Rep #: [id number] : 1960 56 From: Mika Velazquez MD PCP: Maddy Harris NP Status: REG [facility] Y Location: [place] [address] ADDENDUM by Mika Velazquez MD on 09/17/17 at 1454 Code Visit DISREGARD THIS OPERATIVE REPORT< ENTERED ERRONEOUSLY> SEE REPORT FROM APPROX 1500 for today's surgery 09/17/17 1454 <Electronically signed by Mika Velazquez MD> Date Mika Velazquez MD cc: Maddy Harris NP; Mika Velazquez MD * Signed Report of Operation Date of Procedure: 09/17/17 Pre-Operative Diagnosis: LLQ pain, left adenexal mass Post-Operative Diagnosis: LLQ pain, extensive adhesions of sigmonid colon over bladder and left pelvic side wall, right ovary small and atrophic and adhered to posterior side wall Surgery/Procedure Performed:: Diagnostic laparascopy Description of Surgical Findings:: Extensive adhesions of sigmoid colon, normal atrophic right ovary and tube, left tube not able to be identified clinical physician assistant: Angela Baumann Type of Anesthesia:: General Anesthesiologist: [...] skin incisions were made. A 5 mm [intraumbilical] incision was made. The anterior abdominal wall was tented up with 2 towel clamps while a 5 mm blade less trocar and sleeve were inserted with vertical trocar under visualization. Intraperitoneal placement was confirmed with the laparoscope. The pneumoperitoneum was created and the underlying abdominal contents were intact. The patient was placed in Trendelenburg. Right and left lower quadrant ports were [...] and completely adhered to the right pelvic sidewall and actually suspended from the sidewall. Small tubal remnant that appeared normal. Point decision was made to terminate the case. The lateral ports were removed under direct visualization and no active bleeding was noted. The pneumoperitoneum was released. The skin incisions were closed with Monocryl suture in a subcuticular fashion and skin glue and the student with me present.. The vaginal instruments were removed and the [...] Not Indicated 09/17/17 1316 <Electronically signed by Mika Velazquez MD> Date Mika Velazquez MD CC: Maddy Harris NP; Mika Velazquez MD Signed DISCHARGE INSTRUCTION Observed: 09/17/2017 Status: F Source: [place] 12:30 PM [facility] REPOSITORY [facility] Medical Records Department [address] [place] [address] Instructions for Home/Discharge Instructions 09/17/17 1229 MR#: [id number] Acct: [id number] Name: DAYANARA MURRAY Rep #: [id number] : 1960 56 From: Mika Velazquez MD PCP: Maddy Harris NP Status: REG SDC Discharge Diet: No Restrictions - Increase fluid intake for the next 48 hours. Discharge Activity: Return to Normal Activity, May Drive - when you are no longer taking pain/narcotic meds., May Shower, May Take a Tub Bath - in 7 days May resume sexual activity in: 1-2 weeks Additional Activity Instructions:: Ambulate often the next week after surgery. Nothing in the vagina for 5 days. Call your doctor if your incision/area has: Continuous Slow Oozing, Sudden Increased Bleeding, Increased Pain/ Swelling, Increased Redness, Foul Smelling Discharge Call your doctor if you observe: Fever of 101 or Higher Cleanse incision/area with: Soap AND Water, - - Your incision has skin glue, it can get wet. Do not peel off the glue for 10-14 days. Allergies/Adverse Reactions: Allergies morphine Adverse Reaction (Verified 09/15/17 15:56) Other CAUSES LOW BP Medications to take at Discharge Ascorbic Acid [Vitamin C] 1,000 mg PO DAILY@0800 05/19/13 Atenolol [Tenormin (beta milan)] 25 mg PO LUNCH 05/19/13 Lisinopril [Zestril] 10 mg PO DAILY 05/19/13 Amoxicillin 500 mg PO TID 09/15/17 Levothyroxine [Synthroid] 137 mcg PO DAILY 09/15/17 Metformin HCl 500 mg PO DAILY 09/15/17 Hydrocodone/Acetaminophen [[place] 5-325 Tablet] 1 each PO Q6H PRN PRN 6 Days #20 tablet 09/17/17 Ibuprofen [Motrin] 600 mg PO Q6H PRN #30 tab 09/17/17 The following prescriptions were given: Hydrocodone/Acetaminophen [[place] 5-325 Tablet] 1 each PO Q6H PRN PRN 6 Days #20 tablet PRN Reason: Pain Ibuprofen [Motrin] 600 mg PO Q6H PRN #30 tab PRN Reason: Pain Primary Care Physician: Maddy Harris [Primary Care Provider] - Please Follow Up With: Mika Velazquez MD - [phone] When: 1-2 weeks or as needed in my office 09/17/17 1230 <Electronically signed by iMka Velazquez MD> Date Mika Velazquez MD CC: Maddy Harris DINING [employer]OP BEDSIDE GLUCOSE Collected: 09/17/2017 Status: F Source: [place] 10:18 AM [facility] REPOSITORY TYPE CODE TESTS RESULT OUT OF RANGE REFERENCE UNITS LAB L501.080 70-110 mg/dL Normal BEDSIDE GLU 94 Result Comment: MANAGEMENT OF PATIENT CARE PER NURSING PROTOCOL Performed By: #### L501.080 #### [facility] Point of Care [address] [place] [address] CNOP Observed: 09/17/2017 Status: COMPLETED Source: [place] 12:00 [facility] REPOSITORY Operative Note (Enc) (WOOB) Progress Notes: Mika Velazquez MD 09/20/2017 7:32 PM Signed Patient underwent a diagnostic laparoscopy at [facility] on 09/17/17. Planned RSO for pelvic pain and ovarian cyst. The mass was firm, over the bladder and adhered to the cuff and bladder and to sigmoid colon as well. Right ovary appeared to be embeded in bowel and adhered to posterior pelvic wall under the mass and appeared small and separate from the mass. MRI recommended. Mika Velazquez MD Encounter Status:Closed by MIKA VELAZQUEZ MD on 09/20/17 HEMOGLOBIN A1C Collected: 09/16/2017 Status: F Source: [place] 4:09 PM [facility] REPOSITORY TYPE CODE TESTS RESULT OUT OF RANGE REFERENCE UNITS LAB L501.9985 4.2-6.3 % Normal HGB A1C 6.2 Performed By: #### L501.9985 #### [facility] [address] [place], [place], [address] CBC-COMPLETE BLOOD CNT Collected: 09/16/2017 Status: F Source: [place] NO DIFF 3:59 PM [facility] REPOSITORY TYPE CODE TESTS RESULT OUT OF RANGE REFERENCE UNITS LAB L100.1000 4.4-11.0 K/mm3 Normal WBC 7.8 LAB L100.1200 4.2-5.4 M/mm3 Normal RBC 4.56 LAB L100.1300 12.0-15.0 g/dl Normal HGB 13.6 LAB L100.1400 37-47 % Normal HCT 42.0 LAB L100.1500 81-99 fL Normal MCV 92.1 LAB L100.1600 27.0-32.0 pg Normal MCH 29.8 LAB L100.1700 32-36 g/gl Normal MCHC 32.4 LAB L100.1810 11.6-14.6 % Normal RDW CV 13.2 LAB L100.1820 35.1-43.9 fl Normal RDW SD 43.8 LAB L100.1900 150-450 K/mm3 Normal PLT 369 LAB L100.2000 6.2-12.0 fl Normal MPV 11.9 Performed By: #### L100.0500 #### [facility] [address] [facility] [place], [place], [id number] BASIC METABOLIC Collected: 09/16/2017 Status: F Source: [place] PROFILE (BMP) 3:59 PM [facility] REPOSITORY TYPE CODE TESTS RESULT OUT OF RANGE REFERENCE UNITS LAB L501.0100 74-106 mg/dL Normal GLU 78 Result Comment: Please note revised GLUCOSE reference range effective 2017. LAB L501.1000 7-18 mg/dL Normal BUN 16 LAB L501.1100 0.55-1.02 mg/dL Normal CREAT,SERUM 0.75 Result Comment: The validity of the calculated GFR AND GFRAA in patients over 70 years has not been determined. Clinical correlation is essential. LAB L501.1110 >60 mL/min Normal EST GFR 84 Result Comment: Non- GFR Calc LAB L501.1115 >60 mL/min Normal EST GFR - AA 102 Result Comment: GFR Calc LAB L501.1300 10-20 RATIO High BUN/CRE 21.2 LAB L501.2200 8.5-10.1 mg/dL CA Normal 8.5 LAB L501.5300 136-145 mmol/L NA Normal 140 LAB L501.5600 3.5-5.1 mmol/L K Normal 4.2 LAB L501.5900 98-107 mmol/L CL Normal 104 LAB L501.6100 21.0-32.0 mmol/L Normal CO2 28.0 LAB L501.6200 5-15 Normal GAP 8 Performed By: #### L500.2500, L501.9520 #### [facility] [address] [facility] [place], [place], [address] THYROID STIM HORMONE Collected: 09/16/2017 Status: F Source: [place] (TSH) 3:59 PM [facility] REPOSITORY TYPE CODE TESTS RESULT OUT OF RANGE REFERENCE UNITS LAB L501.9520 0.358-3.74 uIU/mL Normal TSH 1.31 Performed By: #### L500.2500, L501.9520 #### [facility] [address] [place], [address] TYPE AND SCREEN Collected: 09/16/2017 Status: F Source: [place] 3:59 PM [facility] REPOSITORY Order Comment: Surgery Date: 09/17/17 Hx of Preganancy in last 3 Months No Ever experience any problems with transfusion(s)? N Hx of Transfusion in last 3 Months N Reason for Type AND Screen/Red Cells: SURGERY SURGICAL PROCEDURE: CYST REMOVAL TYPE CODE TESTS RESULT OUT OF RANGE REFERENCE UNITS LAB B10.0800 A Normal BLOOD TYPE GEL POSITIVE LAB B100.4000 Normal Antibody NEGATIVE Screen Performed By: #### B101.7475 #### [facility] [address] [place], [address] HISTORY PHYSICAL Observed: 09/15/2017 Status: COMPLETED Source: [place] 2:43 PM [facility] [place] REPOSITORY HNO ID: [id number] Author: Mika Velazquez Service: (none) Author Type: Physician Type: HANDP Filed: 09/15/2017 2:43 PM Note Text: Pre-Op History and Physical HPI: The patient is a 56 year old female presenting for pre-operative visit. She is scheduled for laparascopic right salpingoophorectomy , for complex adenexal mass on 09/17/17. Procedure discussed along with risks, benefits and complications. Other alternatives discussed for management. Consent form signed? Yes. PAST MEDICAL HISTORY Diagnosis Date - Backache, unspecified - Diabetes (HCC) - Dysthymic disorder Depression (non-psychotic) - Esophageal reflux - Essential hypertension, malignant - Headache(784.0) - Hyperglycemia - Hypopotassemia - Iron deficiency anemia secondary to blood loss (chronic) - Nontoxic uninodular goiter - Other malaise and fatigue - Pain in joint, site unspecified - Pure hypercholesterolemia - Rosacea - Sciatica - Unspecified vitamin D deficiency - Urinary frequency PAST SURGICAL HISTORY Procedure Laterality Date - COLONOSCOP W/ OR W/O [facility] SPEC 04-25-16 - HYSTERECTOMY HX 2006 partial hysterectomy-thinks one ovary left - LAP CHOLECYSTECT/CHOLANGIOGRAPHY 09-12-11 - LAPAROSCOPY, SURGICAL, SPLENECTOMY 09-12-11 - PAST SURGICAL HISTORY OF 2010 Gall Bladder - SHOULDER SURGERY HX Right 07/02/2016 [facility] [place] - THYROID LOBECTOMY,UNILAT 05-26-13 RIGHT - THYROIDECTOMY POST PREV THYR SURG 07-14-13 LEFT--COMPLETION Current Outpatient Prescriptions: levothyroxine (SYNTHROID) 137 mcg tablet TAKE 1 TABLET BY MOUTH DAILY BEFORE BREAKFAST. Disp: 90 tablet Rfl: 3 lisinopril (ZESTRIL, PRINIVIL) 10 mg tablet Take 10 mg by mouth once daily. Disp: Rfl: docusate sodium (COLACE) 100 mg capsule Take 100 mg by mouth once daily. Disp: Rfl: metFORMIN ER (GLUCOPHAGE XR) 500 mg 24 hr tablet Take 1 tablet by mouth daily with breakfast. Disp: 90 tablet Rfl: 3 NAPROXEN SODIUM (ALEVE ORAL) Take 1 tablet by mouth as needed. Disp: Rfl: ASCORBIC ACID (VITAMIN C ORAL) Take 500 mg by mouth once daily. Disp: Rfl: ATENOLOL 25 MG TAB Take one(1) tablet daily. Disp: Rfl: 0 cholecalciferol (VITAMIN D-3) 2,000 unit tablet Take 4,000 Units by mouth once daily. Disp: Rfl: sitaGLIPtin-metFORMIN (JANUMET XR) 50-500 mg TM24 Take by mouth once daily. Disp: Rfl: Garlic 1,000 mg cap Take 1 tablet by mouth once daily. Disp: Rfl: CALCIUM CARBONATE/VITAMIN D3 (CALCIUM WITH VITAMIN D ORAL) Take 1 tablet by mouth once daily. 1200mg/1000IU Disp: Rfl: No current facility-administered medications for this visit. ALLERGIES: Adhesive; Horse Hair And Dander; Morphine Hcl; Seasonal Allergies PERSONAL HISTORY: Social History Marital status: Single Spouse name: Years of education: Number of children: Occupational History Occupation Employer Comment [employer] Social History Main Topics Smoking status: Former Smoker Packs/day: 0.00 Years: 10.00 Types: Cigarettes Quit date: 07/03/2001 Smokeless status: Never Used Comment: Pt smoked 2 packs a week for 10 years. Alcohol use: Yes Comment: seldom Drug use: No Sexual activity: Yes control/protection: Surgical Comment: hysterectomy FAMILY HISTORY: FAMILY HISTORY Problem Relation Age of Onset - Heart Father [place] - COPD Sister - Diabetes Other Nephew - Cancer Sister cervical - Diabetes Sister - Hypertension Sister GENERAL: denies fevers or chills ENDOCRINOLOGY: has not been on steroids Cardiology : denies palpitations or chest pain Respiratory: denies SOB or cough Hematology: denies history of prolonged bleeding or easy bruising or VTE Allergy: Denies history of personal or family history of allergy to anesthesia ENT- + tooth pain, jaw swelling on right PHYSICAL EXAMINATION: VITALS: There were no vitals taken for this visit. GENERAL: The patient is well nourished, well hydrated in no acute distress. , The patient is oriented to time, place, and person. NECK: Supple. No lynphadenopathy, normal thyroid, no thyromegaly. LUNGS: Clear to auscultation bilaterally. no wheezes, rhonchi or rales HEART: Regular rate and rhythm, Normal heart sounds and No murmurs or gallops IMPRESSION: likely abscessed tooth, complex right adenexal mass PLAN: The risks/benefits/alternatives and personal involved for the planned laparoscopic right salpingo-oophorectomy were reviewed with the patient. Her questions were answered to her satisfaction and she desires to proceed. Consent was signed. I reviewed with her postop instructions and expectations. We discussed that if there is an underlying malignancy, she may require further intervention at a tertiary care center. I have reviewed and updated past medical and surgical history, medications and allergies Mika Velazquez M.D. PROGRESS Observed: 09/14/2017 Status: COMPLETED Source: [place] 4:13 PM [facility] REPOSITORY HNO ID: [id number] Author: Mika Velazquez Service: (none) Author Type: Physician Type: Progress Notes Filed: 09/15/2017 2:43 PM Note Text: Pre-Op History and Physical HPI: The patient is a 56 year old female presenting for pre-operative visit. She is scheduled for laparascopic right salpingoophorectomy , for complex adenexal mass on 09/17/17. Procedure discussed along with risks, benefits and complications. Other alternatives discussed for management. Consent form signed? Yes. PAST MEDICAL HISTORY Diagnosis Date - Backache, unspecified - Diabetes (HCC) - Dysthymic disorder Depression (non-psychotic) - Esophageal reflux - Essential hypertension, malignant - Headache(784.0) - Hyperglycemia - Hypopotassemia - Iron deficiency anemia secondary to blood loss (chronic) - Nontoxic uninodular goiter - Other malaise and fatigue - Pain in joint, site unspecified - Pure hypercholesterolemia - Rosacea - Sciatica - Unspecified vitamin D deficiency - Urinary frequency PAST SURGICAL HISTORY Procedure Laterality Date - COLONOSCOP W/ OR W/O [facility] SPEC 04-25-16 - HYSTERECTOMY HX 2006 partial hysterectomy-thinks one ovary left - LAP CHOLECYSTECT/CHOLANGIOGRAPHY 09-12-11 - LAPAROSCOPY, SURGICAL, SPLENECTOMY 09-12-11 - PAST SURGICAL HISTORY OF 2010 Gall Bladder - SHOULDER SURGERY HX Right 07/02/2016 [facility] [place] [facility] - THYROID LOBECTOMY,UNILAT 05-26-13 RIGHT - THYROIDECTOMY POST PREV THYR SURG 07-14-13 LEFT--COMPLETION Current Outpatient Prescriptions: levothyroxine (SYNTHROID) 137 mcg tablet TAKE 1 TABLET BY MOUTH DAILY BEFORE BREAKFAST. Disp: 90 tablet Rfl: 3 lisinopril (ZESTRIL, PRINIVIL) 10 mg tablet Take 10 mg by mouth once daily. Disp: Rfl: docusate sodium (COLACE) 100 mg capsule Take 100 mg by mouth once daily. Disp: Rfl: metFORMIN ER (GLUCOPHAGE XR) 500 mg 24 hr tablet Take 1 tablet by mouth daily with breakfast. Disp: 90 tablet Rfl: 3 NAPROXEN SODIUM (ALEVE ORAL) Take 1 tablet by mouth as needed. Disp: Rfl: ASCORBIC ACID (VITAMIN C ORAL) Take 500 mg by mouth once daily. Disp: Rfl: ATENOLOL 25 MG TAB Take one(1) tablet daily. Disp: Rfl: 0 cholecalciferol (VITAMIN D-3) 2,000 unit tablet Take 4,000 Units by mouth once daily. Disp: Rfl: sitaGLIPtin-metFORMIN (JANUMET XR) 50-500 mg TM24 Take by mouth once daily. Disp: Rfl: Garlic 1,000 mg cap Take 1 tablet by mouth once daily. Disp: Rfl: CALCIUM CARBONATE/VITAMIN D3 (CALCIUM WITH VITAMIN D ORAL) Take 1 tablet by mouth once daily. 1200mg/1000IU Disp: Rfl: No current facility-administered medications for this visit. ALLERGIES: Adhesive; Horse Hair And Dander; Morphine Hcl; Seasonal Allergies PERSONAL HISTORY: Social History Marital status: Single Spouse name: Years of education: Number of children: Occupational History Occupation Employer Comment [employer] WORK[employer] Social History Main Topics Smoking status: Former Smoker Packs/day: 0.00 Years: 10.00 Types: Cigarettes Quit date: 07/03/2001 Smokeless status: Never Used Comment: Pt smoked 2 packs a week for 10 years. Alcohol use: Yes Comment: seldom Drug use: No Sexual activity: Yes control/protection: Surgical Comment: hysterectomy FAMILY HISTORY: FAMILY HISTORY Problem Relation Age of Onset - Heart Father [place] - COPD Sister - Diabetes Other Nephew - Cancer Sister cervical - Diabetes Sister - Hypertension Sister GENERAL: denies fevers or chills ENDOCRINOLOGY: has not been on steroids Cardiology : denies palpitations or chest pain Respiratory: denies SOB or cough Hematology: denies history of prolonged bleeding or easy bruising or VTE Allergy: Denies history of personal or family history of allergy to anesthesia ENT- + tooth pain, jaw swelling on right PHYSICAL EXAMINATION: VITALS: There were no vitals taken for this visit. GENERAL: The patient is well nourished, well hydrated in no acute distress. , The patient is oriented to time, place, and person. NECK: Supple. No lynphadenopathy, normal thyroid, no thyromegaly. LUNGS: Clear to auscultation bilaterally. no wheezes, rhonchi or rales HEART: Regular rate and rhythm, Normal heart sounds and No murmurs or gallops IMPRESSION: likely abscessed tooth, complex right adenexal mass PLAN: The risks/benefits/alternatives and personal involved for the planned laparoscopic right salpingo-oophorectomy were reviewed with the patient. Her questions were answered to her satisfaction and she desires to proceed. Consent was signed. I reviewed with her postop instructions and expectations. We discussed that if there is an underlying malignancy, she may require further intervention at a tertiary care center. I have reviewed and updated past medical and surgical history, medications and allergies Mika Velazquez M.D. CASSIE Observed: 09/14/2017 Status: COMPLETED Source: [place] 4:00 PM [facility] REPOSITORY Office Visit (WOOB) DAYANARA MURRAY ([id number]) 1960 F CHT Date Time Provider Department 09/14/17 4:00 PM MIKA VELAZQUEZ During your visit today, we recorded the following information about you: Pulse Respiration Blood pressure Weight 84/minute 14/minute 124/82 83.9 kg Height 1.626 m Mika Velazquez MD 09/15/2017 2:43 PM Signed Pre-Op History and Physical HPI: The patient is a 56 year old female presenting for pre- operative visit. She is scheduled for laparascopic right salpingoophorectomy , for complex adenexal mass on 09/17/17. Procedure discussed along with risks, benefits and complications. Other alternatives discussed for management. Consent form signed? Yes. PAST MEDICAL HISTORY Diagnosis Date - Backache, unspecified - Diabetes (HCC) - Dysthymic disorder Depression (non-psychotic) - Esophageal reflux - Essential hypertension, malignant - Headache(784.0) - Hyperglycemia - Hypopotassemia - Iron deficiency anemia secondary to blood loss (chronic) - Nontoxic uninodular goiter - Other malaise and fatigue - Pain in joint, site unspecified - Pure hypercholesterolemia - Rosacea - Sciatica - Unspecified vitamin D deficiency - Urinary frequency PAST SURGICAL HISTORY Procedure Laterality Date - COLONOSCOP W/ OR W/O [facility] SPEC 04-25-16 - HYSTERECTOMY HX 2006 partial hysterectomy-thinks one ovary left - LAP CHOLECYSTECT/CHOLANGIOGRAPHY 09-12-11 - LAPAROSCOPY, SURGICAL, SPLENECTOMY 09-12-11 - PAST SURGICAL HISTORY OF 2010 Gall Bladder - SHOULDER SURGERY HX Right 07/02/2016 [facility] [place] [facility] - THYROID LOBECTOMY,UNILAT 05-26-13 RIGHT - THYROIDECTOMY POST PREV THYR SURG 07-14-13 LEFT--COMPLETION Current Outpatient Prescriptions: levothyroxine (SYNTHROID) 137 mcg tablet TAKE 1 TABLET BY MOUTH DAILY BEFORE BREAKFAST. Disp: 90 tablet Rfl: 3 lisinopril (ZESTRIL, PRINIVIL) 10 mg tablet Take 10 mg by mouth once daily. Disp: Rfl: docusate sodium (COLACE) 100 mg capsule Take 100 mg by mouth once daily. Disp: Rfl: metFORMIN ER (GLUCOPHAGE XR) 500 mg 24 hr tablet Take 1 tablet by mouth daily with breakfast. Disp: 90 tablet Rfl: 3 NAPROXEN SODIUM (ALEVE ORAL) Take 1 tablet by mouth as needed. Disp: Rfl: ASCORBIC ACID (VITAMIN C ORAL) Take 500 mg by mouth once daily. Disp: Rfl: ATENOLOL 25 MG TAB Take one(1) tablet daily. Disp: Rfl: 0 cholecalciferol (VITAMIN D-3) 2,000 unit tablet Take 4,000 Units by mouth once daily. Disp: Rfl: sitaGLIPtin-metFORMIN (JANUMET XR) 50-500 mg TM24 Take by mouth once daily. Disp: Rfl: Garlic 1,000 mg cap Take 1 tablet by mouth once daily. Disp: Rfl: CALCIUM CARBONATE/VITAMIN D3 (CALCIUM WITH VITAMIN D ORAL) Take 1 tablet by mouth once daily. 1200mg/1000IU Disp: Rfl: No current facility-administered medications for this visit. ALLERGIES: Adhesive; Horse Hair And Dander; Morphine Hcl; Seasonal Allergies PERSONAL HISTORY: Social History Marital status: Single Spouse name: Years of education: Number of children: Occupational History Occupation Employer Comment [employer] Social History Main Topics Smoking status: Former Smoker Packs/day: 0.00 Years: 10.00 Types: Cigarettes Quit date: 07/03/2001 Smokeless status: Never Used Comment: Pt smoked 2 packs a week for 10 years. Alcohol use: Yes Comment: seldom Drug use: No Sexual activity: Yes control/protection: Surgical Comment: hysterectomy FAMILY HISTORY: FAMILY HISTORY Problem Relation Age of Onset - Heart Father [place] - COPD Sister - Diabetes Other Nephew - Cancer Sister cervical - Diabetes Sister - Hypertension Sister GENERAL: denies fevers or chills ENDOCRINOLOGY: has not been on steroids Cardiology : denies palpitations or chest pain Respiratory: denies SOB or cough Hematology: denies history of prolonged bleeding or easy bruising or VTE Allergy: Denies history of personal or family history of allergy to anesthesia ENT- + tooth pain, jaw swelling on right PHYSICAL EXAMINATION: VITALS: There were no vitals taken for this visit. GENERAL: The patient is well nourished, well hydrated in no acute distress. , The patient is oriented to time, place, and person. NECK: Supple. No lynphadenopathy, normal thyroid, no thyromegaly. LUNGS: Clear to auscultation bilaterally. no wheezes, rhonchi or rales HEART: Regular rate and rhythm, Normal heart sounds and No murmurs or gallops IMPRESSION: likely abscessed tooth, complex right adenexal mass PLAN: The risks/benefits/alternatives and personal involved for the planned laparoscopic right salpingo-oophorectomy were reviewed with the patient. Her questions were answered to her satisfaction and she desires to proceed. Consent was signed. I reviewed with her postop instructions and expectations. We discussed that if there is an underlying malignancy, she may require further intervention at a tertiary care center. I have reviewed and updated past medical and surgical history, medications and allergies Mika Velazquez M.D. Mika Velazquez MD 09/15/2017 2:43 PM Signed Pre-Op History and Physical HPI: The patient is a 56 year old female presenting for pre- operative visit. She is scheduled for laparascopic right salpingoophorectomy , for complex adenexal mass on 09/17/17. Procedure discussed along with risks, benefits and complications. Other alternatives discussed for management. Consent form signed? Yes. PAST MEDICAL HISTORY Diagnosis Date - Backache, unspecified - Diabetes (HCC) - Dysthymic disorder Depression (non-psychotic) - Esophageal reflux - Essential hypertension, malignant - Headache(784.0) - Hyperglycemia - Hypopotassemia - Iron deficiency anemia secondary to blood loss (chronic) - Nontoxic uninodular goiter - Other malaise and fatigue - Pain in joint, site unspecified - Pure hypercholesterolemia - Rosacea - Sciatica - Unspecified vitamin D deficiency - Urinary frequency PAST SURGICAL HISTORY Procedure Laterality Date - COLONOSCOP W/ OR W/O [facility] SPEC 04-25-16 - HYSTERECTOMY HX 2006 partial hysterectomy-thinks one ovary left - LAP CHOLECYSTECT/CHOLANGIOGRAPHY 09-12-11 - LAPAROSCOPY, SURGICAL, SPLENECTOMY 09-12-11 - PAST SURGICAL HISTORY OF 2010 Gall Bladder - SHOULDER SURGERY HX Right 07/02/2016 [facility] - THYROID LOBECTOMY,UNILAT 05-26-13 RIGHT - THYROIDECTOMY POST PREV THYR SURG 07-14-13 LEFT--COMPLETION Current Outpatient Prescriptions: levothyroxine (SYNTHROID) 137 mcg tablet TAKE 1 TABLET BY MOUTH DAILY BEFORE BREAKFAST. Disp: 90 tablet Rfl: 3 lisinopril (ZESTRIL, PRINIVIL) 10 mg tablet Take 10 mg by mouth once daily. Disp: Rfl: docusate sodium (COLACE) 100 mg capsule Take 100 mg by mouth once daily. Disp: Rfl: metFORMIN ER (GLUCOPHAGE XR) 500 mg 24 hr tablet Take 1 tablet by mouth daily with breakfast. Disp: 90 tablet Rfl: 3 NAPROXEN SODIUM (ALEVE ORAL) Take 1 tablet by mouth as needed. Disp: Rfl: ASCORBIC ACID (VITAMIN C ORAL) Take 500 mg by mouth once daily. Disp: Rfl: ATENOLOL 25 MG TAB Take one(1) tablet daily. Disp: Rfl: 0 cholecalciferol (VITAMIN D-3) 2,000 unit tablet Take 4,000 Units by mouth once daily. Disp: Rfl: sitaGLIPtin-metFORMIN (JANUMET XR) 50-500 mg TM24 Take by mouth once daily. Disp: Rfl: Garlic 1,000 mg cap Take 1 tablet by mouth once daily. Disp: Rfl: CALCIUM CARBONATE/VITAMIN D3 (CALCIUM WITH VITAMIN D ORAL) Take 1 tablet by mouth once daily. 1200mg/1000IU Disp: Rfl: No current facility-administered medications for this visit. ALLERGIES: Adhesive; Horse Hair And Dander; Morphine Hcl; Seasonal Allergies PERSONAL HISTORY: Social History Marital status: Single Spouse name: Years of education: Number of children: Occupational History Occupation Employer Comment [employer] Social History Main Topics Smoking status: Former Smoker Packs/day: 0.00 Years: 10.00 Types: Cigarettes Quit date: 07/03/2001 Smokeless status: Never Used Comment: Pt smoked 2 packs a week for 10 years. Alcohol use: Yes Comment: seldom Drug use: No Sexual activity: Yes control/protection: Surgical Comment: hysterectomy FAMILY HISTORY: FAMILY HISTORY Problem Relation Age of Onset - Heart Father [place] - COPD Sister - Diabetes Other Nephew - Cancer Sister cervical - Diabetes Sister - Hypertension Sister GENERAL: denies fevers or chills ENDOCRINOLOGY: has not been on steroids Cardiology : denies palpitations or chest pain Respiratory: denies SOB or cough Hematology: denies history of prolonged bleeding or easy bruising or VTE Allergy: Denies history of personal or family history of allergy to anesthesia ENT- + tooth pain, jaw swelling on right PHYSICAL EXAMINATION: VITALS: There were no vitals taken for this visit. GENERAL: The patient is well nourished, well hydrated in no acute distress. , The patient is oriented to time, place, and person. NECK: Supple. No lynphadenopathy, normal thyroid, no thyromegaly. LUNGS: Clear to auscultation bilaterally. no wheezes, rhonchi or rales HEART: Regular rate and rhythm, Normal heart sounds and No murmurs or gallops IMPRESSION: likely abscessed tooth, complex right adenexal mass PLAN: The risks/benefits/alternatives and personal involved for the planned laparoscopic right salpingo-oophorectomy were reviewed with the patient. Her questions were answered to her satisfaction and she desires to proceed. Consent was signed. I reviewed with her postop instructions and expectations. We discussed that if there is an underlying malignancy, she may require further intervention at a tertiary care center. I have reviewed and updated past medical and surgical history, medications and allergies Mika Velazquez M.D. Referring Provider: SELF [200] Allergies As of Date: 09/14/2017 Noted Allergy Reaction ADHESIVE 08/05/2016 1 - Mental Status Change 2 - Rash Comments: Blisters HORSE HAIR AND DANDER 08/22/2013 14 - Other: See Comments Comments: Had testing MORPHINE HCL 12/04/2015 14 - Other: See Comments Comments: Pulse dropped SEASONAL ALLERGIES 08/22/2013 14 - Other: See Comments Comments: Sneezing, itchy eyes, watery eyes Date Reviewed: 09/14/2017 Reviewed by: Mika Velazquez - Fully Assessed Reason for Visit: Pre-Op Visit [1235] Primary Visit Diagnosis:Postoperative pain [G89.18] Other Visit Diagnoses:Preoperative examination [Z01.818] Complex cyst of right ovary [N83.291] Order(s):amoxicillin (POLYMOX, AMOXIL) 500 mg capsuleTake 1 capsule by mouth three times daily for 7 days.Disp: 21 capsuleRfl: 0 HYDROcodone-acetaminophen (NORCO) 5-325 mg per tabletTake 1-2 tablets by mouth every 6 hours as needed for Pain for up to 5 days.Disp: 20 tabletRfl: 0 ibuprofen (MOTRIN) 600 mg tabletTake 1 tablet by mouth every 6 hours as needed. FOR PAIN.Disp: 30 tabletRfl: 1 Prescriptions as of 09/14/2017 Sig: LEVOTHYROXINE 137 MCG TABLET TAKE 1 TABLET BY MOUTH DAILY * LISINOPRIL 10 MG TABLET Take 10 mg by mouth once syed* DOCUSATE SODIUM 100 MG CAPSULE Take 100 mg by mouth once brigido* METFORMIN ER 500 MG TABLET,EX* Take 1 tablet by mouth daily * ALEVE ORAL Take 1 tablet by mouth as nee* * VITAMIN C ORAL Take 500 mg by mouth once brigido* * ATENOLOL 25 MG TABLET Take one(1) tablet daily. AMOXICILLIN 500 MG CAPSULE Take 1 capsule by mouth three* HYDROCODONE 5 MG-ACETAMINOPHE* Take 1-2 tablets by mouth joanne* IBUPROFEN 600 MG TABLET Take 1 tablet by mouth every * CHOLECALCIFEROL (VITAMIN D3) * Take 4,000 Units by mouth onc* SITAGLIPTIN 50 MG-METFORMIN E* Take by mouth once daily. GARLIC 1,000 MG CAPSULE Take 1 tablet by mouth once d* * CALCIUM WITH VITAMIN D ORAL Take 1 tablet by mouth once d* Problem List As Of Date 09/14/2017 Noted Resolved NONTOX UNINODULAR GOITER [E04.1] INVALID FOR* Splenomegaly [R16.1] INVALID FOR* Biliary dyskinesia [K82.8] INVALID FOR*08/03/2017 Chronic cholecystitis [K81.1] INVALID FOR*08/03/2017 Thyroid cancer [C73] INVALID FOR* Essential hypertension [I10] INVALID FOR* Personal history of colonic polyps [Z86.010] INVALID FOR* Flank pain [R10.9] INVALID FOR* Prescriptions ordered this encounter Disp Refills Start End AMOXICILLIN 500 MG CAPSULE 21 c* 0 09/14/2017 09/21/2017 Route: ORAL Sig: Take 1 capsule by mouth three times daily for 7 days. HYDROCODONE 5 MG-ACETAMINOPHEN 325 M* 20 t* 0 09/14/2017 09/19/2017 Class: Print RX Route: ORAL Sig: Take 1-2 tablets by mouth every 6 hours as needed for Pain for up to 5 days. IBUPROFEN 600 MG TABLET 30 t* 1 09/14/2017 Route: ORAL Sig: Take 1 tablet by mouth every 6 hours as needed. FOR PAIN. Encounter Status:Closed by MIKA VELAZQUEZ MD on 09/15/17 ABDOMEN/PELVIS WITHOUT Observed: 08/26/2017 Status: F Source: [place] 4:04 PM [facility] REPOSITORY [facility] Imaging Services [address] [place] [address] Abdomen/Pelvis without Cont MR#: [id number] Acct: [id number] Name: DAYANARA MURRAY Rep #: [id number] : 1960 F 56 From: Alejandra Urban MD PCP: Maddy Harris NP Status: REG CLI Study: Abdomen/Pelvis without Cont Date of Exam: 08/26/17 Exam# [id number] Ordering Dr: Maddy Harris CT Abdomen And Pelvis W/O Contrast INDICATION: Right flank pain x months. COMPARISON: None TECHNIQUE: Axial CT imaging of the abdomen and pelvis without contrast. Coronal and sagittal reformatted images. Radiation dose optimization technique applied. FINDINGS: Visualized lung bases are clear. The heart size is normal. The liver is normal in size and density. Gallbladder is not well seen, may be contracted or surgically absent. The spleen appears to [...] of hydronephrosis. The bowel loops are nondistended. The appendix is unremarkable. There is sigmoid diverticulosis without evidence of acute diverticulitis. There is no evidence of free air or free fluid. There is a 5.8 cm cyst with peripheral soft tissue material seen in the central pelvis, may represent the ovary with a large cyst. The urinary bladder is decompressed. The uterus and second ovary are not seen. CT/Abdomen/Pelvis without Cont IMPRESSION: 5.8 cm cystic structure in the pelvis with peripheral soft tissue density, may represent a large cyst arising from the ovary. Please correlate with pelvic ultrasound. Follow-up in 2-3 cycles is recommended to confirm stability or [...] MD at 23:57 EST Tel , Service support , CC: Maddy Harris NP Mileage Clerk: Signed CNPN Observed: 08/10/2017 Status: COMPLETED Source: [place] 12:00 AM [facility] REPOSITORY Telephone (WOOB) DAYANARA MURRAY ([id number]) 1960 F T Date Time Provider Department 08/10/17 MIKA VELAZQUEZ During your visit today, we recorded the following information about you: Sherrill Morales LPN 08/10/2017 9:18 AM Signed Left message to call office. Is patient ready to have surgery scheduled ? Dr. Velazquez has openings on September 03 and September 17 at [facility]. Sherrill Morales LPN 08/31/2017 4:36 PM Signed September 17 is still available at [facility] and there is an opening at [place] on 10/15/17 or [facility] on 10/18/17. Tashia Tiwari RN 08/31/2017 4:40 PM Signed Left message for patient to call office. When she calls back, please inquire what surgery date she prefers. Tashia Tiwari RN 09/04/2017 3:01 PM Signed 3rd message left for patient to call the office. Tashia Velazquez MD 09/04/2017 4:16 PM Signed noted. At this point will wait for her to contact us. MD Jeanie Roman RN 09/08/2017 8:42 AM Signed Patient called back and would like to be scheduled for surgery with Dr. Velazquez on 10/08/17, neurosurgery physician notified. Jeanie Morales LPN 09/08/2017 12:12 PM Signed Left message on patient's cell phone to call office. Would patient like her surgery on 09/17/17 or 10/08/17? Tashia Tiwari RN 09/09/2017 12:27 PM Signed Patient called back and would like 09/07/17 date if still available. She is at work now, but states it is okay to leave a detailed message on her cell. Tashia Tiawri RN Allergies As of Date: 08/10/2017 Noted Allergy Reaction ADHESIVE 08/05/2016 1 - Mental Status Change 2 - Rash Comments: Blisters HORSE HAIR AND DANDER 08/22/2013 14 - Other: See Comments Comments: Had testing MORPHINE HCL 12/04/2015 14 - Other: See Comments Comments: Pulse dropped SEASONAL ALLERGIES 08/22/2013 14 - Other: See Comments Comments: Sneezing, itchy eyes, watery eyes Date Reviewed: 03/23/2017 Reviewed by: Keya Miles MA - Fully Assessed Reason for Visit: Schedule Surgery [1330] Prescriptions as of 08/10/2017 Sig: LEVOTHYROXINE 137 MCG TABLET TAKE 1 TABLET BY MOUTH DAILY * CHOLECALCIFEROL (VITAMIN D3) * Take 4,000 Units by mouth onc* LISINOPRIL 10 MG TABLET Take 10 mg by mouth once syed* SITAGLIPTIN 50 MG-METFORMIN E* Take by mouth once daily. GARLIC 1,000 MG CAPSULE Take 1 tablet by mouth once d* DOCUSATE SODIUM 100 MG CAPSULE Take 100 mg by mouth once brigido* METFORMIN ER 500 MG TABLET,EX* Take 1 tablet by mouth daily * ALEVE ORAL Take 1 tablet by mouth as nee* * VITAMIN C ORAL Take 500 mg by mouth once brigido* * CALCIUM WITH VITAMIN D ORAL Take 1 tablet by mouth once d* * ATENOLOL 25 MG TABLET Take one(1) tablet daily. Problem List As Of Date 08/10/2017 Noted Resolved NONTOX UNINODULAR GOITER [E04.1] INVALID FOR* Splenomegaly [R16.1] INVALID FOR* Biliary dyskinesia [K82.8] INVALID FOR*08/03/2017 Chronic cholecystitis [K81.1] INVALID FOR*08/03/2017 Thyroid cancer [C73] INVALID FOR* Essential hypertension [I10] INVALID FOR* Personal history of colonic polyps [Z86.010] INVALID FOR* Flank pain [R10.9] INVALID FOR* Encounter Status:Closed by TASHIA TIWARI RN on 09/04/17 PROGRESS Observed: 08/03/2017 Status: COMPLETED Source: [place] [address]:14 AM [facility] [place] REPOSITORY HNO ID: [id number] Author: Mika Velazquez Service: (none) Author Type: Physician Type: Progress Notes Filed: 08/03/2017 5:22 PM Note Text: Dayanara Murray is a 56 year old female who presents for problem visit for f/u ovarian cyst. HPI: 56 YOF w/ h/o ovarian cyst. Was stable last year. This year had f/u US and went from 4-5 cm to 8 cm and mildly complex. Has had serial ca 125s that have been normal. She has some occas. low back pain and bloating. No new changes in BMs or appetite. H/o hysterectomy for heavy bleeding. PAST MEDICAL HISTORY Diagnosis Date - Backache, unspecified - Diabetes (HCC) - Dysthymic disorder Depression (non-psychotic) - Esophageal reflux - Essential hypertension, malignant - Headache(784.0) - Hyperglycemia - Hypopotassemia - Iron deficiency anemia secondary to blood loss (chronic) - Nontoxic uninodular goiter - Other malaise and fatigue - Pain in joint, site unspecified - Pure hypercholesterolemia - Rosacea - Sciatica - Unspecified vitamin D deficiency - Urinary frequency PAST SURGICAL HISTORY Procedure Laterality Date - COLONOSCOP W/ OR W/O [facility] SPEC 04-25-16 - HYSTERECTOMY HX 2006 partial hysterectomy-thinks one ovary left - LAP CHOLECYSTECT/CHOLANGIOGRAPHY 09-12-11 - LAPAROSCOPY, SURGICAL, SPLENECTOMY 09-12-11 - PAST SURGICAL HISTORY OF 2010 Gall Bladder - SHOULDER SURGERY HX Right 07/02/2016 [facility] [place] - THYROID LOBECTOMY,UNILAT 05-26-13 RIGHT - THYROIDECTOMY POST PREV THYR SURG 07-14-13 LEFT--COMPLETION FAMILY HISTORY Problem Relation Age of Onset - Heart Father MO - COPD Sister - Diabetes Other Nephew - Cancer Sister cervical - Diabetes Sister - Hypertension Sister Social History Marital status: Single Spouse name: Years of education: Number of children: Occupational History Occupation Employer Comment [employer] WORK[employer] Social History Main Topics Smoking status: Former Smoker Packs/day: 0.00 Years: 10.00 Types: Cigarettes Quit date: 07/03/2001 Smokeless status: Never Used Comment: Pt smoked 2 packs a week for 10 years. Alcohol use: Yes Comment: seldom Drug use: No Sexual activity: Yes control/protection: Surgical Comment: hysterectomy Current Outpatient Prescriptions: levothyroxine (SYNTHROID) 137 mcg tablet TAKE 1 TABLET BY MOUTH DAILY BEFORE BREAKFAST. cholecalciferol (VITAMIN D-3) 2,000 unit tablet Take 4,000 Units by mouth once daily. lisinopril (ZESTRIL, PRINIVIL) 10 mg tablet Take 10 mg by mouth once daily. sitaGLIPtin-metFORMIN (JANUMET XR) 50-500 mg TM24 Take by mouth once daily. Garlic 1,000 mg cap Take 1 tablet by mouth once daily. docusate sodium (COLACE) 100 mg capsule Take 100 mg by mouth once daily. metFORMIN ER (GLUCOPHAGE XR) 500 mg 24 hr tablet Take 1 tablet by mouth daily with breakfast. NAPROXEN SODIUM (ALEVE ORAL) Take 1 tablet by mouth as needed. ASCORBIC ACID (VITAMIN C ORAL) Take 500 mg by mouth once daily. CALCIUM CARBONATE/VITAMIN D3 (CALCIUM WITH VITAMIN D ORAL) Take 1 tablet by mouth once daily. 1200mg/1000IU ATENOLOL 25 MG TAB Take one(1) tablet daily. No current facility-administered medications for this visit. Allergies As of Date: 08/03/2017 Allergen Noted Reaction ADHESIVE 08/05/2016 Mental Status Change and Rash HORSE HAIR AND DANDER 08/22/2013 Other: See Comments MORPHINE HCL 12/04/2015 Other: See Comments SEASONAL ALLERGIES 08/22/2013 Other: See Comments Fully Assessed 03/23/2017 REVIEW OF SYSTEMS Abdomen: No bloating, early satiety, indigestion, or increased flatulence. No abdominal pain, nausea, vomiting, diarrhea, or constipation. Bladder: some frequency and urgency. Expanded ROS: N/A Allergies and current medication updated:Yes EXAM: BP 128/84 Wt 186 lb (84.4kg) GENERAL: pleasant, female in no apparent distress HEENT: Normocephalic, atraumatic, mucus membranes moist and no lesions ASSESSMENT AND PLAN: right ovarian cyst r/b/a/p to expectant vs surgical management reviewed. D/w her there is small chance of cancer that would necessitate further surgery and/or treatment. She states understanding and agreement w/ plan to proceed locally with surgery. Laprascopic BSO. C/o some flank pain today. recommend UA- was neg. F/u w/ PCP prn for this, has had this previously Mika Velazquez MD CNOV Observed: 08/03/2017 Status: COMPLETED Source: [place] 11:10 AM [facility] REPOSITORY Office Visit (WOOB) TREVORDAYANARA BLAKE ([id number]) 1960 F CHT Date Time Provider Department 08/03/17 11:10 AM MIKA VELAZQUEZ During your visit today, we recorded the following information about you: Blood pressure Weight 128/84 84.4 kg Mika Velazquez MD 08/03/2017 5:22 PM Signed Dayanara Murray is a 56 year old female who presents for problem visit for f/u ovarian cyst. HPI: 56 YOF w/ h/o ovarian cyst. Was stable last year. This year had f/u US and went from 4-5 cm to 8 cm and mildly complex. Has had serial ca 125s that have been normal. She has some occas. low back pain and bloating. No new changes in BMs or appetite. H/o hysterectomy for heavy bleeding. PAST MEDICAL HISTORY Diagnosis Date - Backache, unspecified - Diabetes (HCC) - Dysthymic disorder Depression (non-psychotic) - Esophageal reflux - Essential hypertension, malignant - Headache(784.0) - Hyperglycemia - Hypopotassemia - Iron deficiency anemia secondary to blood loss (chronic) - Nontoxic uninodular goiter - Other malaise and fatigue - Pain in joint, site unspecified - Pure hypercholesterolemia - Rosacea - Sciatica - Unspecified vitamin D deficiency - Urinary frequency PAST SURGICAL HISTORY Procedure Laterality Date - COLONOSCOP W/ OR W/O [facility] SPEC 04-25-16 - HYSTERECTOMY HX 2006 partial hysterectomy-thinks one ovary left - LAP CHOLECYSTECT/CHOLANGIOGRAPHY 09-12-11 - LAPAROSCOPY, SURGICAL, SPLENECTOMY 09-12-11 - PAST SURGICAL HISTORY OF 2010 Gall Bladder - [facility] [place] [facility]YROID LOBECTOMY,UNILAT 05-26-13 RIGHT - THYROIDECTOMY POST PREV THYR SURG 07-14-13 LEFT--COMPLETION FAMILY HISTORY Problem Relation Age of Onset - Heart Father [place] - COPD Sister - Diabetes Other Nephew - Cancer Sister cervical - Diabetes Sister - Hypertension Sister Social History Marital status: Single Spouse name: Years of education: Number of children: Occupational History Occupation Employer Comment [employer] WORK[employer] Social History Main Topics Smoking status: Former Smoker Packs/day: 0.00 Years: 10.00 Types: Cigarettes Quit date: 07/03/2001 Smokeless status: Never Used Comment: Pt smoked 2 packs a week for 10 years. Alcohol use: Yes Comment: seldom Drug use: No Sexual activity: Yes control/protection: Surgical Comment: hysterectomy Current Outpatient Prescriptions: levothyroxine (SYNTHROID) 137 mcg tablet TAKE 1 TABLET BY MOUTH DAILY BEFORE BREAKFAST. cholecalciferol (VITAMIN D-3) 2,000 unit tablet Take 4,000 Units by mouth once daily. lisinopril (ZESTRIL, PRINIVIL) 10 mg tablet Take 10 mg by mouth once daily. sitaGLIPtin-metFORMIN (JANUMET XR) 50-500 mg TM24 Take by mouth once daily. Garlic 1,000 mg cap Take 1 tablet by mouth once daily. docusate sodium (COLACE) 100 mg capsule Take 100 mg by mouth once daily. metFORMIN ER (GLUCOPHAGE XR) 500 mg 24 hr tablet Take 1 tablet by mouth daily with breakfast. NAPROXEN SODIUM (ALEVE ORAL) Take 1 tablet by mouth as needed. ASCORBIC ACID (VITAMIN C ORAL) Take 500 mg by mouth once daily. CALCIUM CARBONATE/VITAMIN D3 (CALCIUM WITH VITAMIN D ORAL) Take 1 tablet by mouth once daily. 1200mg/1000IU ATENOLOL 25 MG TAB Take one(1) tablet daily. No current facility-administered medications for this visit. Allergies As of Date: 08/03/2017 Allergen Noted Reaction ADHESIVE 08/05/2016 Mental Status Change and Rash HORSE HAIR AND DANDER 08/22/2013 Other: See Comments MORPHINE HCL 12/04/2015 Other: See Comments SEASONAL ALLERGIES 08/22/2013 Other: See Comments Fully Assessed 03/23/2017 REVIEW OF SYSTEMS Abdomen: No bloating, early satiety, indigestion, or increased flatulence. No abdominal pain, nausea, vomiting, diarrhea, or constipation. Bladder: some frequency and urgency. Expanded ROS: N/A Allergies and current medication updated:Yes EXAM: BP 128/84 Wt 186 lb (84.4kg) GENERAL: pleasant, female in no apparent distress HEENT: Normocephalic, atraumatic, mucus membranes moist and no lesions ASSESSMENT AND PLAN: right ovarian cyst r/b/a/p to expectant vs surgical management reviewed. D/w her there is small chance of cancer that would necessitate further surgery and/or treatment. She states understanding and agreement w/ plan to proceed locally with surgery. Laprascopic BSO. C/o some flank pain today. recommend UA- was neg. F/u w/ PCP prn for this, has had this previously Mika Velazquez MD Referring Provider: SELF [200] Allergies As of Date: 08/03/2017 Noted Allergy Reaction ADHESIVE 08/05/2016 1 - Mental Status Change 2 - Rash Comments: Blisters HORSE HAIR AND DANDER 08/22/2013 14 - Other: See Comments Comments: Had testing MORPHINE HCL 12/04/2015 14 - Other: See Comments Comments: Pulse dropped SEASONAL ALLERGIES 08/22/2013 14 - Other: See Comments Comments: Sneezing, itchy eyes, watery eyes Date Reviewed: 03/23/2017 Reviewed by: Keya Miles MA - Fully Assessed Reason for Visit: Discussion [813] Cmt: u/s- done 06/10/2017 Primary Visit Diagnosis:Ovarian cyst, right [N83.201] Other Visit Diagnosis:Flank pain [R10.9] Order(s):UA DIP B/O [[id number]] Order #: [id number] Prescriptions as of 08/03/2017 Sig: LEVOTHYROXINE 137 MCG TABLET TAKE 1 TABLET BY MOUTH DAILY * CHOLECALCIFEROL (VITAMIN D3) * Take 4,000 Units by mouth onc* LISINOPRIL 10 MG TABLET Take 10 mg by mouth once syed* SITAGLIPTIN 50 MG-METFORMIN E* Take by mouth once daily. GARLIC 1,000 MG CAPSULE Take 1 tablet by mouth once d* DOCUSATE SODIUM 100 MG CAPSULE Take 100 mg by mouth once brigido* METFORMIN ER 500 MG TABLET,EX* Take 1 tablet by mouth daily * ALEVE ORAL Take 1 tablet by mouth as nee* * VITAMIN C ORAL Take 500 mg by mouth once brigido* * CALCIUM WITH VITAMIN D ORAL Take 1 tablet by mouth once d* * ATENOLOL 25 MG TABLET Take one(1) tablet daily. Problem List As Of Date 08/03/2017 Noted Resolved NONTOX UNINODULAR GOITER [E04.1] INVALID FOR* Splenomegaly [R16.1] INVALID FOR* Biliary dyskinesia [K82.8] INVALID FOR*08/03/2017 Chronic cholecystitis [K81.1] INVALID FOR*08/03/2017 Thyroid cancer [C73] INVALID FOR* Essential hypertension [I10] INVALID FOR* Personal history of colonic polyps [Z86.010] INVALID FOR* Flank pain [R10.9] INVALID FOR* Encounter Status:Closed by MIKA VELAZQUEZ MD on 08/03/17 ALLERGIES ALLERGIES DATE TYPE / CODE NAME / CODE REACTION SEVERITY SOURCE 09/15/2017 Drug morphine/[id number] Other Unknown [place] [facility]/416 545(RXNORM) Hospital 771617(SNOM Repository ED CT) 08/05/2016 Drug ADHESIVE Mental Chg [facility] Class/77345 Other [place] 1003(SNOMED Repository CT) 12/04/2015 DRUG MORPHINE HCL OTHER: SEE C [facility] INGREDI/419 Other [place] 075498(SNOM Repository ED CT) 08/22/2013 Animal/4201 HORSE HAIR AND OTHER: SEE [facility] 21679(SNOME DANDER Other [place] D CT) Repository 08/22/2013 Environ/420 SEASONAL OTHER: SEE [facility] 944817(SNOM ALLERGIES Other [place] ED CT) Repository 05/19/2013 Drug No Known Unknown [facility] Allergy/416 Allergies/A34550 Hospital 513084(SNOM 0388(RXNORM) Repository ED CT) ENCOUNTERS ENCOUNTERS ADMIT/DISCHARGE ACCOUNT NUMBER ADMITTING ENCOUNTER LOCATION SOURCE CLASS 06/22/2018 [id number] Ambulatory [facility] ding:MRI Repository 06/11/2018 [id number] Ambulatory [facility] ding:MRI Repository 05/31/2018 [id number] Ambulatory Building:[facility] Repository 05/14/2018 [id number] Ambulatory BBuilding:[facility] Repository 05/12/2018/05/12/20 [id number] Ambulatory [address] ding:[facility] Repository 05/11/2018 [id number] Ambulatory [facility] ding:RAD.FUT Repository URE 05/01/2018/05/01/20 [id number] Ambulatory CATARINO Catarino [address] [place] [address] ding:[facility] Repository 04/22/2018/04/22/20 [id number] Ambulatory CATARINO Catarino [address] [place] [address] ding:[facility] Repository 03/23/2018/03/23/20 [id number] Ambulatory [address] Repository 01/21/2018/01/23/20 [id number] Ambulatory [address] Repository 01/11/2018/01/12/20 [id number] Ambulatory CATARINO Catarino [address] [place] [address] ding:[facility] Repository 12/02/2017/12/04/19 [id number] Ambulatory [address] Repository 11/12/2017/11/13/19 [id number] CANDICE, Ambulatory [address] Repository 11/06/2017/11/07/19 [id number] Ambulatory [address] Repository 11/06/2017/11/12/19 [id number] Ambulatory [address] Repository 10/09/2017/10/10/19 [id number] Ambulatory [address] Repository 10/09/2017/10/10/19 [id number] Ambulatory CATARINO Catarino [address] [place] [address] ding:[facility] Repository 10/09/2017/10/10/19 [id number] Ambulatory BBuilding:OL Catarino [address] [place] [address] Repository 10/07/2017/10/10/19 [id number] Ambulatory [address] Repository 10/05/[id number] [facility] Repository 09/29/2017/09/30/19 [id number] Ambulatory CATARINO Catarino [address] [place] [address] ding:[facility] Repository 09/29/2017/09/30/19 [id number] Ambulatory CATARINO Catarino [address] [place] [address] ding:[facility] Repository 09/29/2017/09/30/19 [id number] Ambulatory CATARINO Catarino [address] [place] [address] ding:[facility] Repository 09/25/2017/09/26/19 [id number] Ambulatory [address] ding:[facility] Repository 09/17/2017/09/18/19 [id number] Ambulatory [place] ding:[facility] Repository : AC17 09/16/2017 [id number] Ambulatory BMSBuilding: [place] [facility] Repository 09/14/2017/09/17/19 [id number] Ambulatory [address] Repository 08/26/2017 [id number] Ambulatory [facility] ding:CT Repository 08/03/2017/08/04/19 [id number] Ambulatory [address] Repository PAYERS PAYERS ENCOUNTER GUARANTOR PAYER SUBSCRIBER SOURCE 06/22/2018 DAYANARA Mei Primary DAYANARA J Neda [id number] Insurance:ANTHEMPolicy WENGERDOB: [facility] Number: [id number] [id number] Repository [address]Hez: 419) Date:8493-94-38BX [phone] () [id number] [place] [address]CJ: 06/22/2018 Secondary NOT GIVENUNK [place] Insurance:SELF PAY [facility] Number: Effective Repository Date:2018-05-26 06/11/2018 DAYANARA Mei Primary DAYANARA J Neda [id number] Insurance:ANTHEMPolicy WENGERDOB: [facility] Number: [id number], [place] [id number] Repository [address]Arq: 419) Date:5549-86-96XF [phone] () 121600IBRVKBH, [place] [address]UR: 06/11/2018 Secondary NOT GIVENUNK [place] Insurance:SELF PAY [facility] Number: Effective Repository Date:2018-06-01 05/31/2018 Dayanara Mei Primary Dayanara J OHIP Practices WengerDOB: Insurance:[place] WengerDOB: Repository /BSPolicy Number: [id number] Davin [id number] Davin [place], [place] Date:0543-27-78MoykChapin, [place] [address]Bbv: [phone]) Name:O Tiffany [address]Zsa: 225781Lalxvnb, [place] 2959701 (WO) (HP)Tel: [phone]: ([phone] 05/31/2018 Secondary Dayanara J OHIP Practices Insurance:Medical WengerDOB: Repository [place] [facility] [id number] Number: Davin [id number] [facility] [place] Date:2007-07-06 [address]Fpz: [id number] ~(3 Name:[facility] [address] (HP) [address]Ciqxxmdln, [place] [id number]: 05/31/2018 Tertiary Dayanara J OHIP Practices [facility] WengerDOB: Repository olicy Number: [id number] Davin Date: - 6898-50-77Hmmr [place], [place] Name:[facility] TIFFANY [address]Xqr: [id number] NE ~([phone]: [phone] 05/31/2018 Tertiary Dayanara J OHIP Practices Insurance:Granjennifer WengerDOB: Repository [place] [facility] [id number] Number: Davin [id number] [facility] Cent[facility]anor[place], [place] Date:2009-04-13 290[address]Cvi: [id number] ~(3 Name:FAttn: Tashia 30 (HP) [place] [facility] 072969Cfedhnbl, [place] [address]VZ: [phone] 05/31/2018 Tertiary Dayanara J OHIP Practices Insurance:Granjennifer WengerDOB: Repository InsurancePolicy [id number] Number: Davin [id number] [place], [place] Date:2009-04-13 [address]Ibt: [id number] ~(3 Name:[address] (HP) 565589Zhfkmdqm, [place] [address]AM: 05/31/2018 Tertiary Dayanara [facility] Practices Insurance:[place] WeerDOB: [facility] [id number] Number: Davin [id number] [place], [place] Date:2015-07-0630079Gxk: [id number] ~(3 Name:[address] (HP) 674912Aqcmpww, [place] [address]LV: 05/14/2018 [facility] WENGERDOB: [facility] [id number] [facility] Number: DAVIN [place]ANTESNOR[place], [place] [id number] [facility] HEALTH CLINICELEANORN[place]WELL, [place] [address]Pah: ([phone]) Date:2018-05-12Tel: [id number] [phone] (HP)Tel: ([phone]) Name:BPO BOX (HP) ([place] 562[address]Wwjqzmj, [place] [phone] (OQ) [address]CS: 05/12/2018 [facility]: [facility] BLUE WENGERDOB: [facility] [id number] Repository [facility] Number: DAVIN DORANTES [place] [id number] [facility] HOSPITAL[facility]UDY[place]LL, [place] [address]Moi: ([phone]) Date:2018-05-12Tel: [id number] [phone] (HP)Tel: ([phone]) Name:BPO BOX (HP) (WP) [address] [place] [address] [phone] (WP) 12[address]TI: 05/11/2018 DAYANARA Mei Primary DAYANARA J Neda [id number] Insurance:ANTHEMPolicy WENGERDOB: [facility] Number: [id number], [place] [id number] Repository [address]Vjo: ([phone]) Date:9506-00-77FG [phone] (HP) [address] [place] [address]QM: 05/11/2018 Secondary NOT GIVENUNK [place] Insurance:SELF PAY [facility] Number: Effective Repository Date:2018-05-11 05/01/2018 DAYANARA J Primary DAYANARA [facility] WENGERDOB: Insurance:ANTHEM BLUE WENGERDOB: [facility] [id number] Repository DAVIN Number: CARMEN CIFUENTES [id number] [place], [place] [address]Lmf: ([phone]) Date:2018-05-01 28[address]Pww: [id number] [phone] (HP)Tel: ([phone]) Name:BPO BOX (HP) (WP) [address] [place] [address] [phone] () 56169XL: 04/22/2018 DAYANARA J Primary [facility] WENGERDOB: Insurance:ANTHEM BLUE WENGERDOB: [facility] [id number] Repository DAVIN Number: CARMEN CIFUENTES [id number] [place], [place] [address]Whu: ([phone]) Date:2018-04-15 585[address]Hfa: [id number] [phone] (HP)Tel: [phone]) Name:BPO BOX (HP) (WP) [id number] [place] [address] [phone] () 735[address]LD: 01/11/2018 DAYANARA J Primary DAYANARA [facility] WENGERDOB: Insurance:NITISH HUDSONNGERDOB: [facility]STEAD [employer] [facility] [id number] Repository DAVIN Number: CARMEN CIFUENTES [id number] [place] [address]Zin: ([phone]) Date:2018-01-11Tel: [id number] [phone] (HP)Tel: [phone]) Name:GRAZYNA ALLEN (HP) () [address] [place] [address] [phone] () 817[address]CS: 10/09/2017 DAYANARA HORNRE Primary DAYANARA [facility] WENGERDOB: Insurance:NITISH NREI WENGERDOB: [facility] [id number] Repository DAVIN Number: CARMEN CIFUENTES [id number] [place], [place] [address]Yga: ([phone]) Date:2017-10-09Tel: [id number] [phone] (HP)Tel: ([phone]) Name:GRAZYNA ALLEN (HP) () [address] [place] [address] [phone] () 979[address]OS: 10/09/2017 DAYANARA J Primary DAYANARA [facility] WENGERDOB: Insurance:NITISH HUDSONNGERDOB: [facility] [id number] Repository DAVIN Number: CARMEN CIFUENTES [id number] [place], [place] [address]Ucx: ([phone]) Date:2017-10-09Tel: [id number] [phone] (HP)Tel: ([phone]) Name:BPO BOX (HP) (WP) [id number] [place] [phone] () 34[address]HA: 09/29/2017 DAYANARA Mei Primary [facility] WEERDOB: Insurance:[place]ITISH BLUE WENGERDOB: [facility] [place] [facility]CIAL[facility] [id number] Repository DAVIN Number: DAVIN DORANTES [place] [id number] [place], [place] [address]Dpi: ([phone]) Date:2017-09-28Tel: [id number] [phone] (HP)Tel: [phone]) Name:BPO BOX (HP) (WP) [id number] [place] [phone] () [id number]: 09/29/2017 DAYANARA Mei Primary DAYANARA [facility] WENGERDOB: Insurance:NITISH NERI WENGERDOB: [facility] [place] [facility]CIALSt[facility] [id number] Repository DAVIN Number: CARMEN CIFUENTES [id number] [place], [place] [address]Ajv: ([phone]) Date:2017-09-29Tel: [id number] [phone] (HP)Tel: [phone]) Name:BPO BOX (HP) (WP) [id number] [place] [phone] () [id number]: 09/29/2017 R SIRI Primary R [facility] Insurance:NITISH BLUE WENGERDOB: [facility] [place] [facility]CIAL[facility] [id number] Repository DAVIN Number: CARMEN CIFUENTES [id number] [place], [place] [address]Wdt: [phone]) Date:2017-09-29 [address]Pzl: [id number] [phone] (HP)Tel: [phone]) Name:Chalino ALLEN (HP) (WP) [address] [place] [address] [phone] (WP) [phone]: 09/25/2017 DAYANARA J Primary DAYANARA J [facility] WENGERDOB: Insurance:ANTHEM BLUE WENGERDOB: [facility] [place] [facility] [id number] Repository [facility] Number: [place], [place] [id number] [place], [place] [address]Dmz: ([phone]) Date:2017-09-24Tel: [id number] [phone] (HP)Tel: [phone]) Name:[facility] [place] () (WP) [address] [place] [address] [phone] (WP) [id number]: 09/17/2017 DAYANARA J Primary DAYANARA J [place] [id number] Insurance:ANTHEMPolicy WENGERDOB: [facility] Number: [id number] [id number] Repository [address]Xfl: [phone]) Date:3925-09-07[phone] (HP) [address] [place] [address] 333[address]PT: 09/17/2017 Secondary NOT GIVENUNK Neda Insurance:SELF PAY [facility] Number: Effective Repository Date:2017-09-09 09/16/2017 DAYANARA J Primary DAYANARA J [place] [id number] Insurance:ANTHEMPolicy WENGERDOB: [facility] Number: [id number] [id number] Repository [address]Vjx: ([phone]) Date:[phone] (HP) [address] [place] [address] 73772GV: 09/16/2017 Secondary NOT GIVENUNK [place] Insurance:SELF PAY [facility] Number: Effective Repository Date:2017-09-16 08/26/2017 Dayanara Horner Primary Dayanara Red [id number] Insurance:ANTHEMPolicy WengerDOB: [facility] Number: [id number] [id number] Repository [address]Ubm: [phone]) Date:0849-47-47YJ [phone] () [id number], [place] [address]QW: 08/26/2017 Secondary NOT GIVENUNK Neda Insurance:SELF PAY [facility] Number: Effective Repository Date:2017-08-18
== END ==
PROVIDERS: Family Provider Nurse Practitioner; PCP Nurse Practitioner; Referring Provider Podiatrist; Visit Provider Podiatrist
DX: M19.072 Primary osteoarthritis, left ankle and foot (principal); M19.071 Primary osteoarthritis, right ankle and foot; D17.23 Benign lipomatous neoplasm of skin and subcutaneous tissue of right leg; D17.24 Benign lipomatous neoplasm of skin and subcutaneous tissue of left leg
CPT/HCPCS: 73718

== ENCOUNTER → 2018-09-08 16:58 | Outpatient (CLI) | payer BC, SELFPAY ==
--- NOTE | 2018-09-08 17:30 | MRI_ITS ---
STUDY: MRI LEFT HIP REASON FOR EXAM: Female, 57 years old. Left hip pain. Left buttock pain. TECHNIQUE: Standardized fat and water weighted pulse sequences were obtained in all 3 orthogonal planes. COMPARISON: None. FINDINGS: Normal hip joint without articular joint space narrowing. Normal acetabulum. Normal labrum. Normal femoral head. Normal femoral neck and intratrochanteric region. There is no demonstrated fracture. Tendinosis of the distal gluteus minimus and medius, series 8 images 17/24 and 18/24. Normal iliopsoas tendon and distal insertion. There is trochanteric bursitis, series 5 image . Normal superior and inferior pubic rami. Normal pubic symphysis. Normal ischial tuberosity. Normal origin of the hamstring tendons. Normal visualized iliac wing, sacroiliac joint, and sacral ala. Normal visualized soft tissue structures of the pelvis. Uterus is not seen consistent with hysterectomy. Bladder is unremarkable. There is diverticulosis of the sigmoid colon. MRI/Lower Ext Joint Only (Routine) IMPRESSION: No fracture or avascular necrosis. Tendinosis of the gluteus medius and minimus with trochanteric bursitis. Electronically Signed: Percy Alfaro MD at 20:30 EST , Service support ,
== END ==
PROVIDERS: Family Provider Nurse Practitioner; PCP Nurse Practitioner; Referring Provider Nurse Practitioner; Visit Provider Nurse Practitioner
DX: M25.552 Pain in left hip (principal)
CPT/HCPCS: 73721

== ENCOUNTER → 2018-10-06 15:59 | Outpatient (CLI) | payer BC, SELFPAY ==
[2017-09-17 10:10] VITALS: BMI 31.3
--- NOTE | 2018-10-06 16:01 | BI_ITS ---
MAMMOGRAPHY - BILATERAL SCREENING REASON FOR EXAM: Female, 58 years old. Routine annual screening examination. PERTINENT HISTORY: Non-contributory. TECHNIQUE: Digital bilateral breast davie (3D mammographic acquisition) in the CC and MLO projections. 2-D mediolateral oblique (MLO) and craniocaudad (CC) views of both breasts were obtained. CAD: Full Field Digital Mammography with Computer Added Detection was performed. COMPARISON: Comparison is made of prior ocular examination dated September 25, 2017. FINDINGS: Breast Composition: There are scattered areas of fibroglandular density. There are no dominant masses or suspicious calcifications. Stable bilateral axillary lymph nodes. No other significant abnormalities are identified. There has been no significant change since the prior study. BI/SCREENING MAMM (CAD), BILAT IMPRESSION: Stable bilateral screening mammogram. Yearly follow-up mammogram recommended. (A) ASSESSMENT CATEGORY: BIRADS Category 2: Benign. A letter regarding these results will be sent to the patient by the facility within 30 days. Approximately 10% of breast cancers are not detected by mammography. A normal mammogram should not delay biopsy of a clinically suspicious abnormality. [id number] Electronically Signed: Patrick Verduzco, at 8:02 EDT , Service support ,
== END ==
PROVIDERS: Family Provider Nurse Practitioner; PCP Nurse Practitioner; Referring Provider Nurse Practitioner; Visit Provider Nurse Practitioner
DX: Z12.31 Encounter for screening mammogram for malignant neoplasm of breast (principal)
CPT/HCPCS: 77063; 77067

== ENCOUNTER → 2018-10-22 09:30 | Outpatient (CLI) | payer BC, SELFPAY ==
--- NOTE | 2018-10-22 09:32 | CT_ITS ---
STUDY: CT ABDOMEN AND PELVIS WITHOUT CONTRAST REASON FOR EXAM: Female, 58 years old. Right flank pain. RADIATION DOSAGE (If Supplied By Facility): CTDIvol = ( 15.93 ) mGy, DLP = ( 839.94 ) mGycm TECHNIQUE: Transaxial images were obtained from the dome of the diaphragm to the symphysis pubis without oral contrast, and without intravenous contrast. Sagittal and coronal images were reconstructed. Individualized dose optimization techniques were used for this CT. COMPARISON: Comparison is made with prior study dated August 26, 2017. FINDINGS: Increased interstitial markings at the lung bases suggestive of scarring. Calcified granuloma in the right lower lobe. The visualized portions of the heart are within normal limits. Normal liver. The patient is status post cholecystectomy. The patient is status post splenectomy. Normal pancreas. Normal bilateral adrenal glands. 2.5 mm calculus in the midpole region of the right kidney. Punctate calcification in the lower pole of the left kidney. Normal visualized stomach. Normal small intestine. There are multiple colonic diverticula consistent with diverticulosis. The appendix is visualized and appears normal. There is scattered atherosclerotic calcification of the abdominal aorta, without a demonstrated aneurysm. Normal inferior vena cava. There is borderline retroperitoneal lymphadenopathy with enlarged nodes no greater than 10mm in the short axis diameter. Normal urinary bladder. There is absence of the uterus consistent with a prior hysterectomy. Phleboliths are seen in the pelvis. The previously seen right ovarian cyst is not seen at this time. Normal abdominal wall. Normal osseous structures. CT/Abdomen/Pelvis without Cont IMPRESSION: Stable punctate nonobstructive bilateral intrarenal calculi. Sigmoid diverticulosis. Electronically Signed: Patrick Verduzco, at 10:13 EDT , Service support ,
== END ==
PROVIDERS: Family Provider Nurse Practitioner; PCP Nurse Practitioner; Referring Provider Nurse Practitioner; Visit Provider Nurse Practitioner
DX: R10.9 Unspecified abdominal pain (principal)
CPT/HCPCS: 74176

== ENCOUNTER → 2018-11-22 | Outpatient (CLI) | payer BC, SELFPAY ==
[2017-09-17 10:10] VITALS: BMI 31.3
[2018-11-22 17:48] LABS: Bacteria 0 SEEN /hpf (None Seen); Mucous, Urine 0 SEEN /hpf (<or=2+); Red Blood Cells-Urine 0 SEEN /hpf (0-5)
[2018-11-22 18:41] LABS: Color, Urine Yellow (Yellow); Glucose, Dipstick Normal (Normal); Ketone-Dipstick Negative (Negative); Leukocyte Esterase-Dipstick 500 /ul (Negative); Nitrite-Dipstick Negative (Negative); Occult Blood-Urine 10 /ul (Negative); Protein-Dipstick Negative (Negative); Urine Bilirubin Dipstick Negative (Negative); Urine Clarity Clear (Clear); Urine Urobilinogen Normal (Normal)
[2018-11-22 18:50] LABS: Squamous Epithelial Cells - UA 0-5 SEEN /hpf (5-10); White Blood Cells 0-5 SEEN /hpf (0-5)
== END | disposition home or self-care (01) ==
PROVIDERS: Family Provider Nurse Practitioner; PCP Nurse Practitioner; Referring Provider Nurse Practitioner; Visit Provider Nurse Practitioner Adult Health
DX: R31.9 Hematuria, unspecified (principal)
CPT/HCPCS: 81001

== ENCOUNTER → 2018-12-21 | Outpatient (CLI) | payer BC, SELFPAY ==
[2017-09-17 10:10] VITALS: BMI 31.3
--- NOTE | 2018-12-21 16:18 | US_ITS ---
STUDY: THYROID ULTRASOUND REASON FOR EXAM: Female, 58 years old. Status post thyroidectomy in 2012. Follow-up. TECHNIQUE: Ultrasound evaluation of the thyroid was performed with real-time and static hardwick-scale imaging. COMPARISON: 11/16/2006. FINDINGS: There is no visualized thyroid tissue, consistent with history of thyroidectomy. There is a mildly hyperplastic lymph node in the left side of the neck, with short axis diameter 1.1 cm. The lymph node has a normal morphology, with an echogenic fatty hilum. There are multiple other lymph nodes bilaterally, which are normal in size and morphology. US/Thyroid IMPRESSION: No visualized thyroid tissue, consistent with history of thyroidectomy. Single mildly enlarged left cervical lymph node with short axis diameter of 1.1 cm. Lymph node has normal morphology. Multiple other small cervical lymph nodes, which are normal in size and morphology. Electronically Signed: Ernst Maharaj MD at 3:44 EDT , Service support ,
== END | disposition home or self-care (01) ==
LOC: US 16:16
PROVIDERS: Family Provider Nurse Practitioner; PCP Nurse Practitioner; Referring Provider Nurse Practitioner; Visit Provider Nurse Practitioner
DX: E04.1 Nontoxic single thyroid nodule (principal)
CPT/HCPCS: 76536

== ENCOUNTER → 2019-03-28 16:49 | Outpatient (CLI) | payer BC, SELFPAY ==
[2019-03-28 18:28] LABS: Free T3 2.7 pg/mL (2.18-3.98); T4 Free Direct 1.39 ng/dL (0.76-1.46); Thyroid Stim Hormone (TSH) 0.36 uIU/mL (0.358-3.74)
== END ==
PROVIDERS: Family Provider Nurse Practitioner; PCP Nurse Practitioner; Referring Provider Nurse Practitioner; Visit Provider Nurse Practitioner
DX: C73 Malignant neoplasm of thyroid gland (principal)
CPT/HCPCS: 36415; 84439; 84443; 84481

== ENCOUNTER → 2019-06-27 16:56 | Outpatient (CLI) | payer BC, SELFPAY ==
--- NOTE | 2019-06-27 17:17 | MRI_ITS ---
STUDY: MRI RIGHT ANKLE WITHOUT CONTRAST REASON FOR EXAM: Female, 58 years old. Rt ankle peroneal tendinitis at insertion -- NKI,pain base of 5th MT for several months mass vs bone in same area. Diabetes. TECHNIQUE: Standardized fat and water weighted pulse sequences were obtained in all 3 orthogonal planes. COMPARISON: None. FINDINGS: There is subcutaneous edema in the lateral aspect. There is marrow edema of the medial aspect of the cuboid, medial cuneiform, the lateral cuneiform, and the base of the third and fourth metatarsals. Normal posterior tibialis tendon. Normal flexor digitorum longus tendon. Normal flexor hallucis longus tendon. Normal peroneus longus and brevis tendons. Normal tibialis anterior tendon. Normal extensor hallucis longus tendon. Normal extensor digitorum longus tendons. Normal Achilles tendon and teno-osseous insertion. Normal plantar fascia. There is a plantar calcaneal spur, but without cancellous marrow edema. Normal intrinsic muscles of the rearfoot. Normal distal tibiofibular syndesmotic ligamentous complex. Normal lateral ligamentous complex. Normal subtalar ligaments and sinus tarsi. Normal deltoid ligamentous complexes. Normal plantar calcaneonavicular (spring) ligament. Small joint effusion of the tibiotalar articulation. Normal talar dome. Normal subtalar articulations. Normal talonavicular articulation. Normal calcaneocuboid articulation. Joint space narrowing and spurring at the navicular-cuneiform articulations and tarsometatarsal articulations. MRI/Lower Ext Joint Only (Routine) IMPRESSION: Arthritic change of the midfoot. Bone bruise or stress injury of the navicular, cuneiforms, and base of the third and fourth metatarsals suggesting developing Charcot arthropathy. Subcutaneous edema. No dominant mass. Electronically Signed: Percy Alfaro MD at 21:25 EST , Service support ,
== END ==
PROVIDERS: Family Provider Nurse Practitioner; PCP Nurse Practitioner; Referring Provider Podiatrist; Visit Provider Podiatrist
DX: M76.71 Peroneal tendinitis, right leg (principal); R22.41 Localized swelling, mass and lump, right lower limb
CPT/HCPCS: 73721

== ENCOUNTER → 2019-08-02 17:43 | Outpatient (CLI) | payer BC, SELFPAY ==
--- NOTE | 2019-08-02 18:15 | MRI_ITS ---
STUDY: MRI LEFT HIP REASON FOR EXAM: Left hip pain for more than 2 years, worse with walking. TECHNIQUE: Standardized fat and water weighted pulse sequences were obtained in all 3 orthogonal planes. COMPARISON: MRI images 09/08/2018. FINDINGS: Normal hip joint without articular joint space narrowing. Normal acetabulum. Normal labrum. Normal femoral head. Normal femoral neck and intratrochanteric region. There is tendinosis of the left gluteus medius tendon (inversion recovery coronal image 12) similar to the prior study. There is mild tendinosis of the left gluteus minimus tendon (inversion recovery coronal image 17), similar to prior study There is very mild left greater trochanteric bursitis (inversion recovery coronal images 14, 15), decreased since the prior study. Normal superior and inferior pubic rami. Normal pubic symphysis. Normal ischial tuberosity. There is mild tendinosis of the left conjoint tendon and very mild peritendinitis of the left semimembranosus tendon (T2 axial images 18-20), similar to the prior study. Normal visualized iliac wing, sacroiliac joint, and sacral ala. Normal visualized soft tissue structures of the pelvis. MRI/Lower Ext Joint Only (Routine) IMPRESSION: Tendinosis of the gluteus medius and minimus tendon similar to the prior study. Mild tendinosis of the left conjoint tendon and very mild peritendinitis of the left semimembranosus tendon, similar to the prior study. Very mild left greater trochanteric bursitis, decreased since the prior study. Electronically Signed: Chas Brennan MD at 10:45 EST Tel , Service support ,
== END ==
PROVIDERS: PCP Nurse Practitioner; Referring Provider Nurse Practitioner Family; Visit Provider Nurse Practitioner Family
DX: M25.552 Pain in left hip (principal)
CPT/HCPCS: 73721

== ENCOUNTER → 2020-03-19 | Outpatient (CLI) | payer BC, SELFPAY ==
[2017-09-17 10:10] VITALS: BMI 31.3
== END | disposition home or self-care (01) ==
LOC: LABSPEC 10:17
PROVIDERS: PCP Nurse Practitioner; Referring Provider Physician Assistant Surgical; Visit Provider Physician Assistant Surgical
DX: Z11.59 Encounter for screening for other viral diseases (principal)
CPT/HCPCS: 87635; C9803; U0003

== ENCOUNTER → 2020-03-21 | Outpatient (CLI) | payer BC, SELFPAY ==
[2017-09-17 10:10] VITALS: BMI 31.3
[2020-03-21 10:50] LABS: Hematocrit 45.5 % (37-47); Hemoglobin 14.6 g/dL (12.0-15.0); Mean Corp Hgb Conc 32.1 g/dL (32-36); Mean Corpuscular Hgb 29.9 pg (27.0-32.0); Mean Corpuscular Volume 93.2 fL (81-99); Mean Platelet Vol. 12.6 fl (6.2-12.0); Platelet Count 349 K/mm3 (150-450); RBC Distribution Width CV 12.4 % (11.6-14.6); RBC Distribution Width SD 42.6 fl (35.1-43.9); Red Blood Count 4.88 M/mm3 (4.2-5.4); White Blood Count 9.7 K/mm3 (4.4-11.0)
== END | disposition home or self-care (01) ==
LOC: LABSPEC 10:31
PROVIDERS: PCP Nurse Practitioner; Visit Provider Nurse Practitioner
DX: R79.89 Other specified abnormal findings of blood chemistry (principal)
CPT/HCPCS: 85027

== ENCOUNTER → 2020-03-23 | Outpatient (CLI) | payer BC, SELFPAY ==
[2017-09-17 10:10] VITALS: BMI 31.3
--- NOTE | 2020-03-23 10:00 | CYST_PTH ---
PATIENT: DAYANARA SALVADOR LOC: [facility] U#:[id number] AGE/SX: 59/F ROOM: RE03/23/[address]: Dr. Gustabo Pressley MD : 1960 BED: DIS: 03/23/2020 SPEC #: [id number] RECD: 03/23/20 15:00 STATUS: KEI SHELLEY #: [id number] UCHE: 03/23/20 10:[address]: Gustabo Pressley DEPT: SURGICAL PATHOLOGY RECD BY: Aileen Quiros ENTERED: 03/26/20 06:54 SP TYPE: Cyst OTHR DR: Maddy Monterroso, ARCH SUPPORT MAKER-C [facility] Tissues: CYST Procedures: Surgery Specimen Level III HEADER OPERATION: Right thumb carpometacarpal arthroplasty, right small finger trigger release PRE-OP DIAGNOSIS: Severe right thumb carpometacarpal joint osteoarthritis; right hand small finger stenosing tenosynovitis TISSUE SUBMITTED: Cyst right small finger MICROSCOPIC DIAGNOSIS Cyst right small finger: A piece of fibroadipose and fibroconnective tissue with reactive changes. See comment. AUGUSTINE:favio 03/27/20 COMMENT No obvious cyst is identified. MICROSCOPIC DESCRIPTION Slides are reviewed. GROSS DESCRIPTION Received is one container labeled with the patient's name and not further designated. The specimen consists of a piece of cabrales-white soft tissue measuring 0.5 x 0.5 x 0.1 cm. The entire specimen is submitted in one cassette. / AUGUSTINE:favio 03/26/20 TC:5 CPT: 13532
== END | disposition home or self-care (01) ==
LOC: LABSPEC 16:03
PROVIDERS: PCP Nurse Practitioner; Referring Provider Specialist; Visit Provider Specialist
DX: M19.041 Primary osteoarthritis, right hand (principal); M65.841 Other synovitis and tenosynovitis, right hand
CPT/HCPCS: 88304

== ENCOUNTER → 2020-04-10 12:48 | Outpatient (CLI) | payer BC, SELFPAY ==
[2017-09-17 10:10] VITALS: BMI 31.3
--- NOTE | 2020-04-10 12:51 | BI_ITS ---
MAMMOGRAPHY - BILATERAL SCREENING REASON FOR EXAM: Female, 59 years old. Routine annual screening examination. PERTINENT HISTORY: NO FAM HX PT HAD 2018 PRIORS AT [place] NO SX TECHNIQUE: Digital bilateral breast sherie (3D mammographic acquisition) in the CC and MLO projections. 2-D mediolateral oblique (MLO) and craniocaudad (CC) views of both breasts were obtained. CAD: Full Field Digital Mammography with Computer Added Detection was performed. COMPARISON: 10/06/2018 and 04/22/2018 FINDINGS: Breast Composition: The breasts are heterogeneously dense, which may obscure small masses. There are no dominant masses or suspicious calcifications. No other significant abnormalities are identified. BI/SCREEN MAMM (CAD) W/SHERIE BILAT IMPRESSION: Stable bilateral screening mammogram. Yearly follow-up mammogram recommended. (A) ASSESSMENT CATEGORY: BIRADS Category 2: Benign. A letter regarding these results will be sent to the patient by the facility within 30 days. Approximately 10% of breast cancers are not detected by mammography. A normal mammogram should not delay biopsy of a clinically suspicious abnormality. [id number] Electronically Signed: Judah Tamayo, at 15:52 EDT Tel , Service support ,
--- NOTE | 2020-04-10 12:52 | BD_ITS ---
STUDY: DUAL ENERGY X-RAY ABSORPTIOMETRY / DXA REASON FOR EXAM: Female, 59 years old. 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 COMPARISON: None. FINDINGS: Lumbar Spine (L1-L4): g/cm2 (1.064) / T-score (-0.9) / Z-score (0.3) Findings are suggestive of normal bone density with a low fracture risk. Left Femur Total: g/cm2 (1.121) / T-score (0.9) / Z-score (1.8) Left Femoral Neck: g/cm2 (1.070) / T-score (0.2) / Z-score (1.5) Right Femur Total: g/cm2 (1.088) / T-score (0.6) / Z-score (1.6) Right Femoral Neck: g/cm2 (1.004) / T-score (-0.2) / Z-score (1.0) BD/Dexa Bone Density Study IMPRESSION: The patient is considered normal as outlined below according to World Kushal Organization (WHO) criteria with a low fracture risk. Reference Information: The T-score is the number of standard deviations above or below the standard which is normal for young adults at their peak bone mineral density. The World Health Organization (WHO) interprets the T-scores as follows: Above -1 Normal bone density Between -1 and -2.5 Osteopenia Equal to / or below -2.5 Osteoporosis As a practical clinical guideline, osteopenia may be graded as follows: Mild -1 through -1.5 Moderate -1.6 through -2.0 Severe -2.1 through -2.4 The Z-score is the number of standard deviations above or below age-matched controls. A Z-score of less than -1.5 would be considered abnormal. References: 1. NIH Osteoporosis and Related Bone Diseases www osteo.org 2. International Society for Clinical Densitometry www iscd.org 3. National Osteoporosis Foundation www nof.org Electronically Signed: Patrick Verduzco, at 9:15 EDT , Service support ,
== END ==
PROVIDERS: PCP Nurse Practitioner; Referring Provider Nurse Practitioner; Visit Provider Nurse Practitioner
DX: Z12.31 Encounter for screening mammogram for malignant neoplasm of breast (principal); Z78.0 Asymptomatic menopausal state
CPT/HCPCS: 77063; 77067; 77080

== ENCOUNTER 2020-06-20 11:30 | Outpatient (RCR) | payer BC, SELFPAY ==
--- NOTE | 2020-04-23 10:21 | HP.OTEVAL ---
Patient's Visit Information DAYANARA SALVADOR is a 59 year old F, referred to Occupational Therapy by Chidi Oliveira PA-C, with a diagnosis of right CMC OA, and right LF trigger finger. Date of Evaluation: 04/19/20 Occupational Therapist: Vicky Patricio, DERIKR/Shan, CHT - Subjective This 59 year old female was seen for OT eval. Pt seen with dx of right CMC OA and right trigger finger of LF. pt states her hand bothered her for years and limited her with ADLs and IADLs. pt decided to have sx. sx was on 03/23/20 3 weeks 6 days from a right CMC arthroplasty. pt arrives with clean/dry incission. pt would like to return to PLOF with ADLs and IADLs - Pain right hand 4 Pain Intensity Range: 4, 6 - ROM Wrist: right 30/30 left 60/55 CMC: right 15 left 15 MP: right 10 left 30 IP: right 55 left 75 Radial Abduction: right 25 left 40 Opposition: right 4 left 10 - Strength Lymphedema Therapist: right NT left 40# Lateral Pinch: right NT left 10 Tripod Pinch: right NT left 10# - Sensation Sensation Comments: denies - Quick DASH-Disab of Arm,Shoulder& Hand Quick DASH Score: 70.0000 - Goals Goal:100% adherence to protocol: Yes Comment: CMC arthroplasty protocol Goal:Daily scar massage when approriate: Yes Goal:ROM equal to unaffected hand: Yes Goal:Lymphedema Therapist/Pinch strength at least 75% of unaffected hand: Yes Goal:No pain with affected hand use: Yes Goal:Full use of affected hand in daily activities including: Yes Goal:Decrease scar hypersensitivity: Yes - Rehabilitation General Assessment: Pt arrives 3 weeks and 6 days s/p a right CMC arthroplasty and right LF trigger finger release. pt limited with ROM strength and pain increasing need of assistance with ADls and IADLS. Pt would benefit from skilled OT services 1-2 x week for 6-8 weeks to return pt to PLOF. Today therapist joe. custom orthosis for right CMC arthroplasty to provide protection and support while structures are healing. therapist ed. pt on edema control, scar mtg and use of orthosis. pt demo understanding of protocol and agree to POC. Rehabilitation Potential: Good - Anticipated Interventions A/AAROM/PROM, Strengthening, Scar Care, Triggerpoint Release, Desensitization, Modalities, Orthoses, Joint Protection/Energy Conservation, Ergonomic Education - Visit Plan Frequency: 1-2x /Week Duration: 6 Weeks TEXT: Thank you for the opportunity to evaluate your patient. For Medicare and Medicare HMO plans, please review the plan of care and approve it. It will need to be FAXED BACK to us at [phone] for Medicare purposes. Please let me know if there are questions or concerns regarding this plan of care. Physician Signature: Date:
--- NOTE | 2020-05-29 09:18 | HP.OTREVAL ---
Chidi Oliveira PA-C, It has been my pleasure to treat DAYANARA SALVADOR over the last 5 visits for right CMC OA, and right LF trigger finger. Please see the progress note below for an update on the occupational therapy plan of care! Subjective: Pt woke up with no pain, then showered and it started hurting but ok now. Thursday, he said its looking good and we can start strengthening. Less needles around CMC of R thumb, pins and needles on tip of thumb. 8 weeks and 5 days. Objective/Function: Pt needs to lift up to 50#'s for work, concerned about this. R thumb MP 10. R thumb IP 68 Plan Frequency: 1-2x /Week Duration: 6 Weeks Plan: no pinching until 12 weeks , pt educated to take brace off but at night but use with heavy work tasks -. * pt to schedule a few more appts to strengthen. wrist/forearm/ biceps/triceps Goals - Goals Patient Goals: Regain Mobility, Regain Strength, Decrease Pain, Improve Fine Motor Skills, Use Hand/Wrist/Arm Normally Again, Be More Independent in ADLS Goal:100% adherence to protocol: Yes Goal:Daily scar massage when approriate: Yes Goal:ROM equal to unaffected hand: Yes Goal:Branch Employment Coordinator/Pinch strength at least 75% of unaffected hand: Yes Goal:No pain with affected hand use: Yes Goal:Full use of affected hand in daily activities including: Yes Goal:Decrease scar hypersensitivity: Yes Anticipated Interventions Anticipated Interventions: A/AAROM/PROM, Strengthening, Scar Care, Triggerpoint Release, Desensitization, Modalities, Orthoses, Joint Protection/Energy Conservation, Ergonomic Education Please do not hesitate to contact me at [phone] by phone or if you have questions or concerns regarding this new plan of care! Sincerely, Vicky Patricio, OTR/L, CHT
--- NOTE | 2020-06-20 12:31 | HP.OTREVAL ---
Chidi Oliveira PA-C, It has been my pleasure to treat DAYANARA SALVADOR over the last 11 visits for right CMC OA, and right LF trigger finger. Please see the progress note below for an update on the occupational therapy plan of care! Subjective: pt arrives 14 weeks s/p from a right CMC arthroplasty- pt has complaints of some pain following ADLs (/) pain is a MP joint and not cmc joint therapist ed. 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 R thumb CMC 15*. R thumb MP 25*. R thumb IP 80*. 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 Therapist advised pt to get comfort cool cmc brace to wear with heavy tasks-( pt relutant) due to having to wash her hands and wear gloves while at work- therapist joe. customo short supportive orthosis to stabalize MP joint(where her pain is) for heavy tasks- pt states she will try it. pt states she is using her right hand 85% of the time but still can not use scissors, or cut veggies. Therapist advise to use adptive rocker knife or cook veggies 1st to soften- and use roller scissors for cutting as able. therapist ed. pt that recovery will take a full year before she dosent have difficulty. Plan Plan: pt to return to dr. for possible return to work Goals - Goals Patient Goals: Regain Mobility, Regain Strength, Decrease Pain, Improve Fine Motor Skills, Use Hand/Wrist/Arm Normally Again, Be More Independent in ADLS Goal:100% adherence to protocol: Yes Goal:Daily scar massage when approriate: Yes Goal:ROM equal to unaffected hand: Yes Goal:Retail Business Development Manager/Pinch strength at least 75% of unaffected hand: Yes Goal:No pain with affected hand use: Yes Goal:Full use of affected hand in daily activities including: Yes Goal:Decrease scar hypersensitivity: Yes Anticipated Interventions Anticipated Interventions: A/AAROM/PROM, Strengthening, Scar Care, Triggerpoint Release, Desensitization, Modalities, Orthoses, Joint Protection/Energy Conservation, Ergonomic Education Please do not hesitate to contact me at [phone] by phone or if you have questions or concerns regarding this new plan of care! Sincerely, Vicky Patricio, OTR/L, CHT
--- NOTE | 2020-10-15 10:14 | HP.OTDCSUM_ITS ---
It has been my pleasure to treat DAYANARA SALVADOR under orders from Chidi Oliveira PA-C, for the diagnosis of right CMC OA, and right LF trigger finger for a total of 11 visit(s). Please see the following information for a summary of their discharge status. 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 R thumb CMC 15*. R thumb MP 25*. R thumb IP 80*. 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 Therapist advised pt to get comfort cool cmc brace to wear with heavy tasks-( pt relutant) due to having to wash her hands and wear gloves while at work- therapist joe. customo short supportive orthosis to stabalize MP joint(where her pain is) for heavy tasks- pt states she will try it. pt states she is using her right hand 85% of the time but still can not use scissors, or cut veggies. Therapist advise to use adptive rocker knife or cook veggies 1st to soften- and use roller scissors for cutting as able. therapist ed. pt that recovery will take a full year before she dosent have difficulty. Patient Goals: Regain Mobility, Regain Strength, Decrease Pain, Improve Fine Motor Skills, Use Hand/Wrist/Arm Normally Again, Be More Independent in ADLS Goal:100% adherence to protocol: Yes Goal:Daily scar massage when approriate: Yes Goal:ROM equal to unaffected hand: Yes Goal:State Patrol Officer/Pinch strength at least 75% of unaffected hand: Yes Goal:No pain with affected hand use: Yes Goal:Full use of affected hand in daily activities including: Yes Goal:Decrease scar hypersensitivity: Yes Plan: pt to return to for possible return to work and D/c. If there are questions or concerns regarding this patient's occupational therapy, please fell free to call me at [phone]. Thank you for the referral of this patient. Sincerely, Vicky Patricio, OTR/L, CHT
== END 2020-06-20 19:00 | disposition home or self-care (01) ==
LOC: OT 11:30
PROVIDERS: PCP Nurse Practitioner; Referring Provider Physician Assistant Surgical; Visit Provider Physician Assistant Surgical
DX: M18.11 Unilateral primary osteoarthritis of first carpometacarpal joint, right hand (principal); M65.351 Trigger finger, right little finger
CPT/HCPCS: 97035; 97110; 97140; 97166; 97530; 97760

== ENCOUNTER → 2021-04-11 16:00 | Outpatient (CLI) | payer BC, SELFPAY ==
[2020-09-11 16:08] VITALS: BMI 32.4
--- NOTE | 2021-04-11 16:12 | BI_ITS ---
MAMMOGRAPHY - BILATERAL SCREENING 3-D TOMOSYNTHESIS REASON FOR EXAM: Female, 60 years old. SCREENING PERTINENT HISTORY: No significant family history. TECHNIQUE: 2-D mammograms and 3-D Tomosynthesis of the breast (s) were performed. CAD was performed. COMPARISON: 04/10/2020 FINDINGS: The breast composition is heterogeneously dense that can obscure small breast masses. Scattered benign calcifications are seen. No dense spiculated masses or suspicious microcalcifications are identified. No architectural distortion is identified. There is no skin thickening or retraction. There has been no significant change since the prior study. BI/SCRN MAMM (CAD)W/SHERIE BILAT IMPRESSION: No mammographic signs of malignancy. Routine yearly mammograms recommended. ASSESSMENT CATEGORY: BIRADS Category 1: Negative. A letter regarding these results will be sent to the patient by the facility within 30 days. FOLLOW UP RECOMMENDATION: Yearly follow up mammogram recommended. (A) Approximately 10% of breast cancers are not detected by mammography. A normal mammogram should not delay biopsy of a clinically suspicious abnormality. Electronically Signed: Robin Mullins MD at 17:49 EDT Tel , Service support ,
== END ==
PROVIDERS: PCP Nurse Practitioner; Referring Provider Nurse Practitioner; Visit Provider Nurse Practitioner
DX: Z12.31 Encounter for screening mammogram for malignant neoplasm of breast (principal)
CPT/HCPCS: 77063; 77067

== ENCOUNTER → 2021-05-03 07:57 | Outpatient (CLI) | payer BC, SELFPAY ==
--- NOTE | 2021-05-03 08:30 | MRI_ITS ---
STUDY: MRI LUMBAR SPINE WITHOUT CONTRAST REASON FOR EXAM: Female, 60 years old. STENOSIS TECHNIQUE: Standardized fat and water weighted pulse sequences were obtained in the sagittal and axial planes. COMPARISON: 06/11/2018 FINDINGS: T12-L1: Normal endplates. Normal disc height, hydration and morphology. Normal bilateral facet joints. Normal central canal and bilateral lateral recesses. Normal bilateral intervertebral neural foramina. Normal lumbar lordosis. There is no substantial scoliosis. Normal conus medullaris that terminates at the L1/L2. L1-2: Normal endplates. Normal disc height, hydration and morphology. Normal bilateral facet joints. Normal central canal and bilateral lateral recesses. Normal bilateral intervertebral neural foramina. L2-3: Normal endplates. Normal disc height, hydration and morphology. Normal bilateral facet joints. Normal central canal and bilateral lateral recesses. Normal bilateral intervertebral neural foramina. L3-4: Mild bilateral facet hypertrophy and ligament flavum hypertrophy. No change in the 2 mm of anterolisthesis of L3 on L4 with a mild broad disc protrusion produces mild spinal stenosis and mild bilateral neural foraminal stenosis. L4-5: Mild broad disc protrusion reduces mild spinal stenosis and mild bilateral neural foraminal stenosis. L5-S1: No change in the moderate size central disc protrusion produces moderate spinal stenosis with moderate along recess stenosis and abutment of the S1 nerve roots bilaterally, moderate right neural foraminal stenosis with abutment of the right L5 nerve root laterally and mild left neural foraminal stenosis. Normal visualized sacral ala. Normal visualized paraspinous soft tissue structures. MRI/Spine Lumbar (Routine) IMPRESSION: No change from 06/11/2018. Electronically Signed: Robin Mullins MD at 15:36 EDT Tel , Service support ,
== END ==
PROVIDERS: PCP Nurse Practitioner; Referring Provider Orthopaedic Surgery; Visit Provider Orthopaedic Surgery
DX: M48.061 Spinal stenosis, lumbar region without neurogenic claudication (principal); M47.816 Spondylosis without myelopathy or radiculopathy, lumbar region
CPT/HCPCS: 72148

== ENCOUNTER → 2021-06-17 16:56 | Outpatient (CLI) | payer BC, SELFPAY ==
[2021-06-17 17:58] LABS: Hematocrit 42.6 % (37-47); Hemoglobin 14.3 g/dL (12.0-15.0); Mean Corp Hgb Conc 33.6 g/dL (32-36); Mean Corpuscular Volume 92.4 fL (81-99); Platelet Count 348 K/mm3 (150-450); RBC Distribution Width CV 12.7 % (11.6-14.6); RBC Distribution Width SD 43.4 fl (35.1-43.9); Red Blood Count 4.61 M/mm3 (4.2-5.4); White Blood Count 11.7 K/mm3 (4.4-11.0)
[2021-06-17 18:29] LABS: Vitamin D,25 Hydroxy 19.2 ng/mL
[2021-06-17 18:42] LABS: ALB/GLOB Ratio 0.9 RATIO (0.9-2.4); AST(SGOT) 25 U/L (15-37); Alanine Aminotransfer ALT/SGPT 35 U/L (13-56); Albumin, Serum 3.6 g/dL (3.2-5.0); Alkaline Phosphatase 67 U/L (45-117); Anion Gap 8 (5-15); BUN 13 mg/dL (7-18); BUN/Creat Ratio 20.9 RATIO (10-20); Calcium,Total 8.7 mg/dL (8.5-10.1); Chloride 104 mmol/L (98-107); Creatinine, Serum 0.62 mg/dL (0.55-1.02); EST Glomerular Filtration Rate 104 mL/min (>60); Est Glom Filt Rate - Afr Amer 125 mL/min (>60); Glucose 94 mg/dL (74-106); Potassium 4.1 mmol/L (3.5-5.1); Protein, Total 7.6 g/dL (6.4-8.2); Sodium Level 139 mmol/L (136-145); Thyroid Stim Hormone (TSH) 5.82 uIU/mL (0.358-3.74)
== END ==
PROVIDERS: PCP Nurse Practitioner; Referring Provider Nurse Practitioner; Visit Provider Nurse Practitioner
DX: E03.9 Hypothyroidism, unspecified (principal); I10 Essential (primary) hypertension; E55.9 Vitamin D deficiency, unspecified; E11.9 Type 2 diabetes mellitus without complications
CPT/HCPCS: 36415; 80053; 82306; 84443; 85027

== ENCOUNTER → 2022-04-14 | Outpatient (CLI) | payer BC, SELFPAY ==
--- NOTE | 2022-04-14 16:08 | BI_ITS ---
MAMMOGRAPHY - BILATERAL SCREENING REASON FOR EXAM: Female, 61 years old. Routine annual screening examination. PERTINENT HISTORY: Non-contributory. TECHNIQUE: Digital bilateral breast sherie (3D mammographic acquisition) in the CC and MLO projections. 2-D mediolateral oblique (MLO) and craniocaudad (CC) views of both breasts were obtained. CAD: Full Field Digital Mammography with Computer Added Detection was performed. COMPARISON: Comparison is made with prior examination 04/11/2021 and 04/10/2020. FINDINGS: Breast Composition: The breasts are heterogeneously dense, which may obscure small masses. There are no dominant masses or suspicious calcifications. Stable small benign-appearing bilateral axillary lymph nodes. No other significant abnormalities are identified. There has been no significant change since the prior study. BI/SCRN MAMM (CAD)W/SHERIE BILAT IMPRESSION: Stable bilateral screening mammogram. Yearly follow-up mammogram recommended. (A) ASSESSMENT CATEGORY: BIRADS Category 2: Benign. A letter regarding these results will be sent to the patient by the facility within 30 days. Approximately 10% of breast cancers are not detected by mammography. A normal mammogram should not delay biopsy of a clinically suspicious abnormality. [id number] Electronically Signed: Patrick Verduzco MD at 8:29 EDT ,
== END | disposition home or self-care (01) ==
LOC: OPBI 16:07
PROVIDERS: PCP Nurse Practitioner Family; Referring Provider Internal Medicine Hematology & Oncology; Visit Provider Internal Medicine Hematology & Oncology
DX: Z12.31 Encounter for screening mammogram for malignant neoplasm of breast (principal)
CPT/HCPCS: 77063; 77067

== ENCOUNTER → 2022-07-15 | Outpatient (CLI) | payer BC, SELFPAY ==
--- NOTE | 2022-07-15 16:10 | BD_ITS ---
STUDY: DUAL ENERGY X-RAY ABSORPTIOMETRY / DXA REASON FOR EXAM: Female, 61 years old. [id number] TECHNIQUE: Bone Mineral Density (BMD) measurements of lumbar spine and bilateral hips were obtained. COMPARISON: Comparison is made with prior study dated 04/10/2020. FINDINGS: Lumbar Spine (L1-L4): g/cm2 (0.898) / T-score (-1.4) / Z-score (0.3) Findings are suggestive of osteopenia with a low fracture risk. Left Femur Total: g/cm2 (1.012) / T-score (0.6) / Z-score (1.7) Left Femoral Neck: g/cm2 (0.827) / T-score (-0.2) / Z-score (1.2) Right Femur Total: g/cm2 (0.957) / T-score (0.1) / Z-score (1.2) Right Femoral Neck: g/cm2 (0.785) / T-score (-0.6) / Z-score (0.8) The T-Scores on the most recent prior examination were: Lumbar Spine (L1-L4): There has been worsening of bone density since the previous examination. Left Femur Total: which represents a worsening of 3.8%. Right Femur Total: which represents a worsening of 6.2%. BD/Dexa Bone Density Study IMPRESSION: The patient is considered osteopenic as outlined below according to World Kushal Organization (WHO) criteria with a low fracture risk. There has been worsening of bone density since the previous examination. Reference Information: The T-score is the number of standard deviations above or below the standard which is normal for young adults at their peak bone mineral density. The World Health Organization (WHO) interprets the T-scores as follows: Above -1 Normal bone density Between -1 and -2.5 Osteopenia Equal to / or below -2.5 Osteoporosis As a practical clinical guideline, osteopenia may be graded as follows: Mild -1 through -1.5 Moderate -1.6 through -2.0 Severe -2.1 through -2.4 The Z-score is the number of standard deviations above or below age-matched controls. A Z-score of less than -1.5 would be considered abnormal. References: 1. NIH Osteoporosis and Related Bone Diseases www osteo.org 2. International Society for Clinical Densitometry www iscd.org 3. National Osteoporosis Foundation www nof.org Electronically Signed: Patrick Verduzco MD at 8:40 EST ,
== END | disposition home or self-care (01) ==
LOC: OPBD 16:02
PROVIDERS: PCP Nurse Practitioner Family; Visit Provider Nurse Practitioner Family
DX: M85.80 Other specified disorders of bone density and structure, unspecified site (principal); Z78.0 Asymptomatic menopausal state
CPT/HCPCS: 77080

== ENCOUNTER → 2022-09-05 | Outpatient (CLI) | payer BC, SELFPAY ==
--- NOTE | 2022-09-05 06:45 | MRI_ITS ---
STUDY: MRI LEFT ANKLE WITHOUT CONTRAST REASON FOR EXAM: Female, 61 years old. Soft tissue mass. TECHNIQUE: Standardized fat and water weighted pulse sequences were obtained in all 3 orthogonal planes. Tissue markers identify identify the area of clinical concern. COMPARISON: None. FINDINGS: In the region of the tissue markers there is a subcutaneous lipoma measuring approximately 7.7 cm anterior to posterior 1.3 cm medial to lateral anteriorly and 1.3 cm medial to lateral posteriorly. The mass wraps around the distal fibula and has a circumscribed border between it and the soft tissues. No aggressive features are associated with this lesion (axial series 4 images 4-22, sagittal series 6 7 images 17 and 21). Normal posterior tibialis tendon. Normal flexor digitorum longus tendon. Normal flexor hallucis longus tendon. Normal peroneus longus and brevis tendons. Normal tibialis anterior tendon. Normal extensor hallucis longus tendon. Normal extensor digitorum longus tendons. Normal Achilles tendon and teno-osseous insertion. Normal plantar fascia. Normal plantar calcaneal tubercles. Normal intrinsic muscles of the rearfoot. Normal distal tibiofibular syndesmotic ligamentous complex. Normal lateral ligamentous complex. Normal subtalar ligaments and sinus tarsi. Normal deltoid ligamentous complexes. Normal plantar calcaneonavicular (spring) ligament. Normal tibiotalar articulation. Normal talar dome. Normal subtalar articulations. Normal talonavicular articulation. Normal calcaneocuboid articulation. Normal navicular-cuneiform articulations. MRI/Lower Ext Joint Only W/WO Cont IMPRESSION: Lipoma in the area of clinical concern as described. Remainder of examination is normal. Electronically Signed: Shamar Martinez, at 9:33 EST ,
[2022-09-05 07:00] LABS: CREATININE FINGERSTICK < 0.9 mg/dL (0.55-1.02); EGFR FINGERSTICK > 60.0000 mL/min (>60)
== END | disposition home or self-care (01) ==
PROVIDERS: PCP Nurse Practitioner Family; Referring Provider Student in an Organized Health Care Education/Training Program; Visit Provider Student in an Organized Health Care Education/Training Program
DX: D17.24 Benign lipomatous neoplasm of skin and subcutaneous tissue of left leg (principal); R22.42 Localized swelling, mass and lump, left lower limb
CPT/HCPCS: 73723; A9575

== ENCOUNTER → 2023-04-16 | Outpatient (CLI) | payer BC, SELFPAY ==
--- NOTE | 2023-04-16 07:50 | BI_ITS ---
MAMMOGRAPHY - BILATERAL SCREENING REASON FOR EXAM: Female, 62 years old. Routine annual screening examination. PERTINENT HISTORY: Non-contributory. TECHNIQUE: Digital bilateral breast sherie (3D mammographic acquisition) in the CC and MLO projections. 2-D mediolateral oblique (MLO) and craniocaudad (CC) views of both breasts were obtained. CAD: Full Field Digital Mammography with Computer Added Detection was performed. COMPARISON: Comparison is made with prior study dated April 14, 2022 and April 11, 2021. FINDINGS: Breast Composition: The breasts are heterogeneously dense, which may obscure small masses. There are no dominant masses or suspicious calcifications. Stable benign-appearing bilateral axillary lymph nodes. No other significant abnormalities are identified. There has been no significant change since the prior study. BI/SCRN MAMM (CAD)W/SHERIE BILAT IMPRESSION: Stable bilateral screening mammogram. Yearly follow-up mammogram recommended. (A) ASSESSMENT CATEGORY: BIRADS Category 2: Benign. A letter regarding these results will be sent to the patient by the facility within 30 days. Approximately 10% of breast cancers are not detected by mammography. A normal mammogram should not delay biopsy of a clinically suspicious abnormality. [id number] Electronically Signed: Patrick Verduzco MD at 12:06 EDT ,
== END | disposition home or self-care (01) ==
LOC: OPBI 07:49
PROVIDERS: PCP Nurse Practitioner Family; Referring Provider Nurse Practitioner Family; Visit Provider Nurse Practitioner Family
DX: Z12.31 Encounter for screening mammogram for malignant neoplasm of breast (principal)
CPT/HCPCS: 77063; 77067

== ENCOUNTER 2023-06-03 07:27 | Day surgery (SDC) | payer BC, SELFPAY ==
[2023-06-03] VITALS (7 sets, daily range): BP systolic 118–163; BP diastolic 29–93; PULSE 71–90; RESP 16; TEMP 36.3–37.1; O2SAT 91–96; BMI 33.2
[2023-06-03] MEDS: Lactated Ringers 1,000 ML 15 ML IV (07:45)
--- NOTE | 2023-06-03 08:30 | COLBX_PTH ---
PATIENT: DAYANARA SALVADOR LOC: EN U#:[id number] AGE/SX: 62/F ROOM: RE06/03/[address]: Dr. Marlo Adams DO : 1960 BED: DIS: 06/03/2023 SPEC #: [id number] RECD: 06/03/23 13:57 STATUS: KEI RENicole #: [id number] UCHE: 06/03/23 08:[address]: Marlo Adams DEPT: SURGICAL PATHOLOGY RECD BY: Debra Neff ENTERED: 06/04/23 10:49 SP TYPE: COLON BX MIRIAM DR: Betty Vazquez, VOCATIONAL DIRECTOR-C Tissues: A - COLON BIOPSY B - Sigmoid colon biopsy Procedures: Surgery Specimen Level IV HEADER OPERATION: Colonoscopy PRE-OP DIAGNOSIS: Screening for malignant neoplasm of colon TISSUE SUBMITTED: A - Splenic flexure polyp, B - Sigmoid colon polyp MICROSCOPIC DIAGNOSIS A. Colonic polyp at splenic flexure, biopsy: Tubular adenoma. B. Sigmoid colon polyp, biopsy: Tubular adenoma. AM:favio 06/05/2023 MICROSCOPIC DESCRIPTION Slides are reviewed. GROSS DESCRIPTION A - Received in fixative is one container labeled with the patient's name and designated splenic flexure polyp. The specimen consists of one irregular fragment of light cabrales soft tissue that measures 0.5 x 0.5 x 0.1 cm. The specimen is totally submitted in one cassette. B - Received in fixative is one container labeled with the patient's name and designated sigmoid colon polyp. The specimen consists of one irregular fragment of light cabrales soft tissue that measures 0.5 x 0.3 x 0.1 cm. The specimen is totally submitted in one cassette. / AM:favio 06/04/2023 TC:5 CPT: 09288 x2
--- NOTE | 2023-06-03 08:36 | PCM.HP.STD ---
HPI - General General Date of Admission: 06/03/23 Date of Service: 06/03/23 Chief Complaint: Screening colonoscopy HPI Narrative DAYANARA SALVADOR, is a 62 F who presents for screening colonoscopy. 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 She comes in today for screening colonoscopy. She does not have any abdominal pain. She denied any cramping. She denied of any chest pain or shortness of breath. Overall she is in very good health. [facility] Medical History (Updated 06/01/23 @ 11:26 by Jossy Jin) Anxiety Asplenia Bladder disease Cancer Depression Diabetes Fatty liver Former smoker GERD (gastroesophageal reflux disease) Headache Hematuria History of edema History of IBS History of stress test Hx of thyroid cancer Hypercholesteremia Hypertension Hypothyroidism Leukocytosis Microalbuminuria Migraine headache Rosacea Thyroid adenoma Thyroid disease Vitamin D deficiency Wears glasses Home Medications ascorbic acid (vitamin C) 500 mg tablet (Vitamin C) 1,000 mg PO DAILY@0800 05/19/13 [History Last Taken Unknown] atenolol 25 mg tablet 25 mg PO LUNCH 05/19/13 [History Last Taken 09/16/17 12:30] levothyroxine 112 mcg tablet 137 mcg PO DAILY 09/15/17 [History Last Taken 09/17/17 06:00] metformin 500 mg tablet 500 mg PO DAILY 09/15/17 [History Last Taken Unknown] ibuprofen 600 mg tablet 600 mg PO Q6H PRN Pain #30 tabs 09/17/17 [Rx Last Taken Unknown] losartan 25 mg tablet 25 mg PO DAILY 08/22/20 [History Last Taken Unknown] calcium carb-ergocalciferol (vit D2) 600 mg calcium-200 unit tablet 1 tab PO DAILY 09/09/22 [History Last Taken Unknown] cholecalciferol (vitamin D3) 125 mcg (5,000 unit) capsule 125 mcg PO DAILY 04/14/23 [History Last Taken Unknown] Allergy/AdvReac Type Severity Reaction Status Date / Time adhesive tape AdvReac Severe Rash Verified 06/03/23 07:59 morphine AdvReac Severe Other Verified 06/03/23 07:59 Family History Sister Cancer Diabetes Aunt Cancer Mother Diabetes Surgical History (Updated 06/01/23 @ 11:17 by Jossy Jin) History of bladder surgery History of hysterectomy History of thyroidectomy Hx of arthroscopy of shoulder Hx of cholecystectomy Hx of colonoscopy Hx of splenectomy Status post splenectomy Social History Smoking Status: Former smoker Tobacco: How many years used: 19 second hand exposure: No alcohol intake: never substance use type: does not use dennis/jehovah's witness: Sabianism seatbelt use: always do you feel safe at home: Yes ROS Constitutional Constitutional: Reports systems reviewed and no addt'l complaints, except as documented and snoring; Denies fatigue, fever(s), night sweats or weight loss Eyes Eyes: Reports systems reviewed and no addt'l complaints, except as documented; Denies change in vision ENT HEENT: Reports systems reviewed and no addt'l complaints, except as documented; Denies dental pain, mouth lesions, nasal discharge, otalgia or sinus pain Cardiovascular Cardiovascular: Reports systems reviewed and no addt'l complaints, except as documented; Denies chest pain or edema Respiratory/Chest Respiratory/Chest: Reports systems reviewed and no addt'l complaints, except as documented; Denies cough, dyspnea or wheezing Gastrointestinal Gastrointestinal: Reports systems reviewed and no addt'l complaints, except as documented; Denies change in bowel habits Genitourinary Genitourinary: Reports systems reviewed and no addt'l complaints, except as documented; Denies dysuria Musculoskeletal Musculoskeletal: Reports systems reviewed and no addt'l complaints, except as documented; Denies back pain or joint pain Integumentary Integumentary: Reports systems reviewed and no addt'l complaints, except as documented; Denies rash Neurologic Neurologic: Reports systems reviewed and no addt'l complaints, except as documented Psychiatric Psychiatric: Reports systems reviewed and no addt'l complaints, except as documented Endocrine Endocrinology: Reports systems reviewed and no addt'l complaints, except as documented; Denies excessive sweating or flushing Hematologic/Lymphatic Hematologic/Lymphatic: Reports systems reviewed and no addt'l complaints, except as documented; Denies lymphadenopathy Allergic/Immunologic Allergic/Immunologic: Reports systems reviewed and no addt'l complaints, except as documented Vital Signs Vital Signs Vital Signs: 06/03/23 08:01 06/03/23 08:01 Temperature 97.4 F L Temperature Source Temporal Pulse Rate 90 Respiratory Rate 16 Respiratory Pattern Normal Blood Pressure 163/93 H Blood Pressure Mean 116 Blood Pressure Source Monitor Blood Pressure Position Semi-Fowlers Blood Pressure Location Right Arm Pulse Ox 96 Oxygen Delivery Method Room Air Weight Weight: 199 lb 8.293 oz Body Mass Index (BMI) 33.2 Physical Exam Narrative ECOG 0 Const alert and oriented x3 General Appearance: cooperative and comfortable HEENT normocephalic Head and Scalp: normal to inspection Face and Sinus: normal facial exam Mouth: oral and palatal mucosa normal Eyes General Eye: normal appearance of both eyes Neck no lymphadenopathy and no JVD Lymph Lymphatic: no lymphadenopathy noted Chest Chest: symmetrical chest wall rise Resp clear to auscultation bilaterally Cardio regular rate and regular rhythm Jugular Venous Distention: Negative for JVD GI soft to palpation, non-tender and non-distended; Negative for hepatosplenomegaly no CVA tenderness Back/Spine no thoracic nor lumbar tenderness Extremity no clubbing, cyanosis or edema Skin no rashes or lesions noted Neuro oriented x3, CN's II-XII intact bilaterally, moves all extremities and no focal motor deficits Coordination / Balance: [id number] test normal Speech: speech normal Gait (Neuro): normal gait Psych mental status grossly normal Assessment & Plan Assessment/Plan (1) Encounter for screening for malignant neoplasm of colon: PLAN: She was explained alternatives, risk, benefits including not withstanding bleeding, infection, sepsis, perforation, need for emergent surgery . She will have an ASA of 2.
--- NOTE | 2023-06-03 09:03 | OP.CCLET_ITS ---
06/03/2023 Delfino Parada Re : Colonoscopy procedure for Netta Iversonr George This procedure was performed on Saturday, June 03, 2023. My impressions and recommendations are as follows: Impressions : - Diverticulosis in the recto-sigmoid colon, in the sigmoid colon, in the descending colon, in the ascending colon and in the cecum. - Two 1 to 2 mm polyps in the sigmoid colon and at the splenic flexure, removed with a cold snare. Resected and retrieved. Recommendations : - Repeat colonoscopy in 5 years for surveillance. - Continue present medications. My findings are described in the full procedure note, which is enclosed. If I can be of further assistance, please feel free to contact me at . Sincerely, Marlo Adams, 06/03/2023 9:02:32 AM This report has been signed electronically.
--- NOTE | 2023-06-03 09:03 | OP.COLON_ITS ---
Patient Name: Netta Murray Procedure Date: 06/03/2023 8:34 AM Date of : 1960 Age: 62 Procedure: Colonoscopy Indications: Screening for colorectal malignant neoplasm Providers: Marlo Adams DO Medicines: Monitored Anesthesia Care Patient Profile: This is a 62 year old female. Refer to note in patient chart for documentation of history and physical. Last Colonoscopy: 5 years ago. Complications: No immediate complications. Procedure: Pre-Anesthesia Assessment: - Prior to the procedure, a History and Physical was performed, and patient medications and allergies were reviewed. The patient is competent. The risks and benefits of the procedure and the sedation options and risks were discussed with the patient. All questions were answered and informed consent was obtained. Patient identification and proposed procedure were verified by the physician in the pre-procedure area. Mental Status Examination: alert and oriented. Airway Examination: normal oropharyngeal airway and neck mobility. Respiratory Examination: clear to auscultation. CV Examination: normal. Prophylactic Antibiotics: The patient does not require prophylactic antibiotics. Prior Anticoagulants: The patient has taken no anticoagulant or antiplatelet agents. ASA Grade Assessment: II - A patient with mild systemic disease. After reviewing the risks and benefits, the patient was deemed in satisfactory condition to undergo the procedure. The anesthesia plan was to use moderate sedation / analgesia (conscious sedation). Immediately prior to administration of medications, the patient was re-assessed for adequacy to receive sedatives. The heart rate, respiratory rate, oxygen saturations, blood pressure, adequacy of pulmonary ventilation, and response to care were monitored throughout the procedure. The physical status of the patient was re-assessed after the procedure. After I obtained informed consent, the scope was passed under direct vision. Throughout the procedure, the patient's blood pressure, pulse, and oxygen saturations were monitored continuously. The Colonoscope was introduced through the anus and advanced to the cecum, identified by appendiceal orifice and ileocecal valve. The colonoscopy was performed without difficulty. The patient tolerated the procedure well. The quality of the bowel preparation was adequate. The ileocecal valve, appendiceal orifice, and rectum were photographed. Scope In: 8:43:00 AM Scope Withdrawal Time 0 hours 8 minutes 53 seconds Scope Out: 8:56:18 AM Total Procedure Duration Time 0 hours 13 minutes 18 seconds Findings: The perianal and digital rectal examinations were normal. Multiple small and large-mouthed diverticula were found in the recto-sigmoid colon, sigmoid colon, descending colon, ascending colon and cecum. Two sessile polyps were found in the sigmoid colon and splenic flexure. The polyps were 1 to 2 mm in size. These polyps were removed with a cold snare. Resection and retrieval were complete. Verification of patient identification for the specimen was done. Estimated blood loss was minimal. Impression: - Diverticulosis in the recto-sigmoid colon, in the sigmoid colon, in the descending colon, in the ascending colon and in the cecum. - Two 1 to 2 mm polyps in the sigmoid colon and at the splenic flexure, removed with a cold snare. Resected and retrieved. Recommendation: - Repeat colonoscopy in 5 years for surveillance. - Continue present medications. Procedure Code(s): --- Professional --- 09134, Colonoscopy, flexible; with removal of tumor(s), polyp(s), or other lesion(s) by snare technique CPT copyright 2021 [employer]. All rights reserved. The codes documented in this report are preliminary and upon barnworker groom review may be revised to meet current compliance requirements. Marlo Adams DO 06/03/2023 9:02:32 AM This report has been signed electronically. Number of Addenda: 0 Note Initiated On: 06/03/2023 8:34 AM
[2023-06-03 09:43] LABS: Bedside Glucose 127 mg/dL (74-106)
== END 2023-06-03 09:53 | disposition home or self-care (01) ==
LOC: EN 07:30 → AC 07:30
PROVIDERS: PCP Nurse Practitioner Family; Referring Provider Nurse Practitioner Family; Visit Provider Internal Medicine Gastroenterology
PROC: 0DJD8ZZ Inspection of Lower Intestinal Tract, Via Natural or Artificial Opening Endoscopic (ICD-10-PCS; CPT 45378; principal; 2023-06-03 08:25)
DX: Z12.11 Encounter for screening for malignant neoplasm of colon (principal); E11.9 Type 2 diabetes mellitus without complications; K57.30 Diverticulosis of large intestine without perforation or abscess without bleeding; K63.5 Polyp of colon; E89.0 Postprocedural hypothyroidism; Z79.84 Long term (current) use of oral hypoglycemic drugs; I10 Essential (primary) hypertension; E78.00 Pure hypercholesterolemia, unspecified; Z87.891 Personal history of nicotine dependence; Z79.899 Other long term (current) drug therapy; Z90.710 Acquired absence of both cervix and uterus; Z90.49 Acquired absence of other specified parts of digestive tract; Z90.81 Acquired absence of spleen; D12.5 Benign neoplasm of sigmoid colon; D12.3 Benign neoplasm of transverse colon
CPT/HCPCS: 45385; 82962; 88305; J7120; J2405

== ENCOUNTER → 2024-05-17 | Outpatient (CLI) | payer OTHER, SELFPAY | END | disposition home or self-care (01) | LOC: OPBI 13:18 | PROVIDERS: PCP Nurse Practitioner Family; Referring Provider Nurse Practitioner Family; Visit Provider Nurse Practitioner Family | DX: Z12.31 Encounter for screening mammogram for malignant neoplasm of breast (principal) | CPT/HCPCS: 77063; 77067 ==

== ENCOUNTER → 2024-10-06 | Outpatient (CLI) | payer MEDICARE, SELFPAY ==
--- NOTE | 2024-10-06 07:56 | BD_ITS ---
PROCEDURE: DEXA BONE DENSITY STUDY 10/06/2024 REASON FOR EXAM: F, age 64 y/o . Postmenopausal. TECHNIQUE: DXA scan of the lumbar spine and both hips, using make and model. REFERENCE LINKS: ISCD Adult Positions COMPARISON: Comparison is made with prior study dated July 15, 2022. FINDINGS: BMD and T-SCORES Lumbar spine: 0.941 g/cm2, T-Score -1.0 L1 through L4 Change from prior: Improvement of 4.7% Left femoral neck: 0.828 g/cm2, T-Score -0.2 Femoral neck comparison data not recommended for monitoring change. Left total hip: 0.982 g/cm2, T-Score 0.3 Change from prior: Loss of 3% Right femoral neck: 0.757 g/cm2, T-Score -0.8 Femoral neck comparison data not recommended for monitoring change. Right total hip: 0.929 g/cm2, T-Score -0.1 Change from prior: Loss of 2.9% Fracture Risk Calculation: FRAX (10-year Fracture Risk) Score: FRAX scores should never be reported in a patient with osteoporosis on DEXA or for any patient that is on bone medication. The patient doesmeet the pharmacological treatment recommendations for prevention of osteoporosis BD/Dexa Bone Density Study IMPRESSION: NORMAL T-SCORES. Recommend follow-up as clinically warranted. Reading Location: [place] [id number]
== END | disposition home or self-care (01) ==
LOC: OPBD 07:54
PROVIDERS: PCP Nurse Practitioner Family; Referring Provider Nurse Practitioner Family; Visit Provider Nurse Practitioner Family
DX: Z78.0 Asymptomatic menopausal state (principal)
CPT/HCPCS: 77080

== ENCOUNTER → 2025-02-07 | Outpatient (CLI) | payer MEDICARE, SELFPAY | END | disposition home or self-care (01) | LOC: LABSPEC 09:14 | PROVIDERS: PCP Nurse Practitioner Family; Visit Provider Physician Assistant | DX: R30.0 Dysuria (principal) | CPT/HCPCS: 87077; 87086; 87088; 87186 ==

== ENCOUNTER → 2025-04-22 | Outpatient (CLI) | payer MEDICARE, SELFPAY | END | disposition home or self-care (01) | LOC: LABSPEC 04-24 09:37 | PROVIDERS: PCP Nurse Practitioner Family; Visit Provider Physician Assistant | DX: R82.90 Unspecified abnormal findings in urine (principal) | CPT/HCPCS: 87086; 87088 ==

== ENCOUNTER → 2025-05-18 | Outpatient (CLI) | payer MEDICARE, SELFPAY ==
--- NOTE | 2025-05-18 08:15 | BI_ITS ---
EXAM: SCRN MAMM (CAD)W/SHERIE BILAT DATE: 05/18/2025 CLINICAL HISTORY: F, Age 64 y/o , SCREENING FOR MALIGNANT NEOPLASM OF BREAST No family history. TECHNIQUE: Procedure Code: [id number] Modality: MG Procedure: SCRN MAMM (CAD)W/SHERIE BILAT COMPARISON: Prior exam(s) dated May 17, 2024.. FINDINGS: TISSUE DENSITY: The breasts are heterogeneously dense, which may obscure small masses. Bilateral Breast Mammographic Findings: No significant masses, calcifications or other abnormalities are identified. Stable bilateral fat containing axillary lymph nodes. No suspicious masses, areas of developing architectural distortion, or suspicious calcifications. There has been no significant interval change. BI/SCRN MAMM (CAD)W/SHERIE BILAT IMPRESSION: Stable bilateral screening mammogram. OVERALL FINAL ASSESSMENT BI-RADS 2: BENIGN RECOMMENDATION: Routine annual follow-up in 1 Year Additional Recommendation none A letter with findings and recommendations will be mailed to the patient. Reading Location: [place] [id number]
== END | disposition home or self-care (01) ==
PROVIDERS: PCP Nurse Practitioner Family; Referring Provider Nurse Practitioner Family; Visit Provider Nurse Practitioner Family
DX: Z12.31 Encounter for screening mammogram for malignant neoplasm of breast (principal)
CPT/HCPCS: 77063; 77067

== ENCOUNTER → 2025-06-09 | Outpatient (CLI) | payer MEDICARE, SELFPAY ==
--- NOTE | 2025-06-09 15:05 | US_ITS ---
PROCEDURE: KIDNEY AND BLADDER 06/09/2025 REASON FOR EXAM: URINARY TRACT INFECTIONS TECHNIQUE: Procedure Code: USKI Modality: US Procedure: KIDNEY AND BLADDER COMPARISON: 10/22/2018 FINDINGS: The right kidney measures 9.8 x 6.5 x 5 cm. Cortex measures 1.2 cm. Echogenic stone measuring 3 x 2 x 2 mm. No hydronephrosis. Left kidney measures 10.2 x 5 x 5.2 cm. Normal cortex measuring 1.1 cm. Echogenic stone measuring 3 x 3 x 2 mm. Superior pole anechoic cyst measuring 1.1 x 0.8 x 0.7 cm. Urinary bladder prevoid volume is 261.6 cc. Postvoid volume is 256 cc. Wall measures 4 mm. Jets are not seen. Possible accessory spleen measuring 3.3 by 3.4 x 3.6 cm. History of splenectomy years ago. US/Kidney and Bladder IMPRESSION: Bilateral renal stones. Simple left renal cyts. New as compared Reading Location: [facility]
== END | disposition home or self-care (01) ==
LOC: US 15:01
PROVIDERS: Referring Provider Urology; Visit Provider Urology
DX: Z12.31 Encounter for screening mammogram for malignant neoplasm of breast (principal)
CPT/HCPCS: 76770

== ENCOUNTER → 2025-06-14 | Outpatient (CLI) | payer MEDICARE, SELFPAY ==
--- NOTE | 2025-06-14 08:05 | RAD_ITS ---
PROCEDURE: INJ/ASP RAKESH JT SHOULD/HIP/KNEE 06/14/2025 REASON FOR EXAM: OSTEOARTHRITIS RIGHT SHOULDER TECHNIQUE: Procedure Code: RADINJ/ASP MJ Modality: DX Procedure: INJ/ASP RAKESH JT SHOULD/HIP/KNEE. The procedure as well as the benefits and possible complications including infection and bleeding were explained to the patient. Informed consent was obtained. The patient was in the supine position. The overlying skin was prepped and draped in the usual sterile fashion. Following local anesthetic application and under direct fluoroscopic guidance, shoulder injection was performed. 2 cc of Isovue-300 was injected for confirmation. Following this, 12 mg of betamethasone and 4 cc of lidocaine 1% was injected. The patient tolerated the procedure well. COMPARISON: None FINDINGS: Successful right shoulder injection. RAD/Inj/Asp Rakesh Jt Should/Hip/Knee IMPRESSION: Successful right shoulder injection. The patient tolerated the procedure well. No immediate complication noted. Reading Location: [facility]
[2025-06-14] MEDS: Lidocaine 2% (5ml sdv) 5 ML VIAL.MPF (08:24)
[2025-06-14] MEDS: Betamethasone/Betamethasone 30 MG/5 ML Vial 12 MG INTRAARTIC (08:26)
[2025-06-14] MEDS: Lidocaine 1% (5 ml sdv) 5 ML Vial 4 ML OPERA.SITE (08:26)
== END | disposition home or self-care (01) ==
LOC: RAD 07:51
PROVIDERS: Referring Provider Specialist; Visit Provider Specialist
DX: M19.011 Primary osteoarthritis, right shoulder (principal); M75.41 Impingement syndrome of right shoulder
CPT/HCPCS: 20610; 77002; J0702